=== PATIENT | male | born 1985 | race American Indian/Alaskan Native ===

== ENCOUNTER 2017-05-11 22:48 | Inpatient (IN) | payer SELFPAY ==
[2017-05-12 00:20] LABS: Basophils % (Auto) 0.2 % (0.0-1.8); Eosinophils % (Auto) 1.6 % (0.0-4.3); Hematocrit 21.2 % (35.5-45.6); Hemoglobin 7.2 gm/dl (11.8-15.2); Mean Corpuscular HGB Conc 34 % (32-34); Mean Corpuscular Hemoglobin 29 pg (28-32); Mean Corpuscular Volume 86 fl (84-94); Platelet Count 162 K/mm3 (140-440); Red Blood Count 2.48 M/mm3 (3.65-5.03); Red Cell Distribution Width 12.9 % (13.2-15.2); White Blood Count 5.1 K/mm3 (4.5-11.0)
[2017-05-12 00:36] LABS: Albumin 3.5 g/dL (3.9-5); Albumin/Globulin Ratio 0.8 %; BUN/Creatinine Ratio 13.52; Bilirubin,Total 0.2 mg/dL (0.1-1.2); Calcium 8.7 mg/dL (8.4-10.2); Chloride 105.5 mmol/L (98-107); Magnesium 1.9 mg/dL (1.7-2.3); Potassium 4.6 mmol/L (3.6-5.0); Total Protein 7.8 g/dL (6.3-8.2)
[2017-05-12] MEDS ORDERED: NACL 0.9% 500 ML 500 ML IV ONE (01:28)
--- NOTE | 2017-05-12 01:34 | Emergency Department Report ---
HPI - General Chief Complaint: Dizziness Time Seen by Provider: 05/12/17 01:08 - HPI HPI: Room 7 Patient is a 31-year-old male presenting with a chief complaint of weakness. Family states the patient has been in his usual state of health all day however at 22:07 he called and complaint of chest pain and dizziness. Family told the patient to sit down and relax. The patient called back shortly began complaining of shortness of breath and appeared to be panicking. The patient attempted to walk from his house to another family member smoking reportedly had difficulty family had to carry him to the home. It is uncertain if the patient actually had a syncopal or near syncopal episode. Family member states when she arrived home the patient was sitting on the couch and appeared disoriented. The patient is currently sleeping on stretcher and requires tactile stimuli to awaken. The patient is awake and he complains of feeling weak and tired. The patient complains of achy pain in all of his joints but otherwise denies any other type of pain. Patient denies bright red blood per rectum or melena. Location: [see above] Duration: Constant since 22:07 Quality: Weakness Severity: Severe Modifying factors: [see above] Context: [see above] Mode of transportation: [not driving] ED Past Medical Hx - Past Medical History Previous Medical History?: Yes Additional medical history: Lupus, hyperthyroidism, anemia - Surgical History Past Surgical History?: No - Family History Family history: no significant - Social History Smoking Status: Never Smoker Substance Use Type: None - Medications Home Medications: Home Medications Medication Instructions Recorded Confirmed Last Taken Type Acetaminophen/Codeine 1 tab PO Q6H PRN #14 tab 09/03/14 Unknown Rx [Acetaminophen-Codeine #3 TAB] Cephalexin [Keflex] 500 mg PO Q6H #28 capsule 09/03/14 Unknown Rx ED Review of Systems ROS: Stated complaint: PASSED OUT Other details as noted in HPI Comment: All other systems reviewed and negative Constitutional: weakness Eyes: denies: eye pain, eye discharge, vision change ENT: denies: ear pain, throat pain Respiratory: shortness of breath Cardiovascular: chest pain Endocrine: no symptoms reported Gastrointestinal: denies: abdominal pain, nausea, vomiting, diarrhea, melena, hematochezia Genitourinary: denies: urgency, dysuria Musculoskeletal: denies: back pain, joint swelling, arthralgia Skin: denies: rash, lesions Neurological: denies: headache, weakness, paresthesias Psychiatric: denies: anxiety, depression Hematological/Lymphatic: denies: easy bleeding, easy bruising Physical Exam - Physical Exam Vital Signs: Vital Signs 05/11/17 23:34 Temperature 99 F Pulse Rate 95 H Respiratory 16 Rate Blood Pressure 135/76 O2 Sat by Pulse 96 Oximetry Physical Exam: GENERAL: The patient is well-developed well-nourished male sleeping on stretcher. In the patient appears lethargic HEENT: Normocephalic. Atraumatic. Extraocular motions are intact. Patient has moist mucous membranes. NECK: Supple. Trachea midline CHEST/LUNGS: Clear to auscultation. There is no respiratory distress noted. HEART/CARDIOVASCULAR: Regular. There is no tachycardia. There is no gallop rub or murmur. ABDOMEN: Abdomen is soft, nontender. Patient has normal bowel sounds. There is no abdominal distention. SKIN: There is no rash. There is no edema. There is no diaphoresis. The patient has normal speech MUSCULOSKELETAL: There is no evidence of acute injury. ED Course Vital Signs 05/11/17 23:34 Temperature 99 F Pulse Rate 95 H Respiratory 16 Rate Blood Pressure 135/76 O2 Sat by Pulse 96 Oximetry ED Medical Decision Making - Lab Data Result diagrams: 05/11/17 23:54 05/11/17 23:54 Laboratory Tests 05/11/17 05/11/17 05/11/17 23:39 23:54 23:54 WBC 5.1 RBC 2.48 L Hgb 7.2 L Hct 21.2 L MCV 86 MCH 29 MCHC 34 RDW 12.9 L Plt Count 162 Lymph % (Auto) 18.2 Donley % (Auto) 7.0 Eos % (Auto) 1.6 Baso % (Auto) 0.2 Lymph # 0.9 L Donley # 0.4 Eos # 0.1 Baso # 0.0 Seg Neutrophils % 73.0 H Seg Neutrophils # 3.7 Sodium 141 Potassium 4.6 Chloride 105.5 Carbon Dioxide 21 L Anion Gap 19 BUN 23 H Creatinine 1.7 H Estimated GFR 58 BUN/Creatinine Ratio 13.52 Glucose 132 H POC Glucose 146 H Lactic Acid Calcium 8.7 Magnesium 1.90 Total Bilirubin 0.20 AST 16 ALT 5 L Alkaline Phosphatase 60 Total Protein 7.8 Albumin 3.5 L Albumin/Globulin Ratio 0.8 TSH Salicylates Acetaminophen Plasma/Serum Alcohol 05/11/17 05/11/17 05/11/17 23:54 23:54 23:54 WBC RBC Hgb Hct MCV MCH MCHC RDW Plt Count Lymph % (Auto) Donley % (Auto) Eos % (Auto) Baso % (Auto) Lymph # Donley # Eos # Baso # Seg Neutrophils % Seg Neutrophils # Sodium Potassium Chloride Carbon Dioxide Anion Gap BUN Creatinine Estimated GFR BUN/Creatinine Ratio Glucose POC Glucose Lactic Acid 1.00 Calcium Magnesium Total Bilirubin AST ALT Alkaline Phosphatase Total Protein Albumin Albumin/Globulin Ratio TSH 0.009 L Salicylates < 0.3 L Acetaminophen Plasma/Serum Alcohol 05/11/17 05/11/17 23:54 23:54 WBC RBC Hgb Hct MCV MCH MCHC RDW Plt Count Lymph % (Auto) Donley % (Auto) Eos % (Auto) Baso % (Auto) Lymph # Donley # Eos # Baso # Seg Neutrophils % Seg Neutrophils # Sodium Potassium Chloride Carbon Dioxide Anion Gap BUN Creatinine Estimated GFR BUN/Creatinine Ratio Glucose POC Glucose Lactic Acid Calcium Magnesium Total Bilirubin AST ALT Alkaline Phosphatase Total Protein Albumin Albumin/Globulin Ratio TSH Salicylates Acetaminophen < 15.0 Plasma/Serum Alcohol < 0.01 - EKG Data -: EKG Interpreted by Il EKG shows normal: sinus rhythm Rate: normal - EKG Data When compared to previous EKG there are: previous EKG unavailable Interpretation: other (early repolarization. No ischemic changes seen) - Differential Diagnosis symptomatic anemia Critical care attestation.: If time is entered above; I have spent that time in minutes in the direct care of this critically ill patient, excluding procedure time. ED Disposition Clinical Impression: Symptomatic anemia, Hyperthyroidism, Renal insufficiency Disposition: -09 OP ADMIT IP TO THIS HOSP Is pt being admited?: Yes Does the pt Need Aspirin: No Condition: Serious Referrals: PRIMARY CARE, [Primary Care Provider] - 3-5 Days Time of Disposition: 01:37 (hospitalist paged)
[2017-05-12 01:57] LABS: Urine Drugs of Abuse Note Disclamer
[2017-05-12 02:50] LABS: Bilirubin,Urine NEG (Negative); Blood,Urine NEG (Negative); Ketones,Urine NEG (Negative); Leukocyte Esterase,Urine NEG (Negative); Mucus,Urine FEW /HPF; Nitrite,Urine NEG (Negative); Urobilinogen,Urine < 2.0 mg/dL (<2.0)
[2017-05-12] MEDS ORDERED: NACL 0.9% 500 ML 500 ML ONE (06:56)
--- NOTE | 2017-05-12 07:12 | Admit Criteria Form ---
Admission Criteria Documentation: ANEMIA, IRON DEFICIENCY OR UNSPECIFIED Clinical Indications for Inpatient Care (Place 'X' for any and all applicable criteria): Admission is indicated for ANY ONE of the following(1)(2)(3)(4)(5)(6)(7): [X] I. Inpatient admission required rather than observation care (Also use Anemia, Iron Deficiency or Unspecified: Observation Care guideline as appropriate) because of ANY ONE of the following: [] a) Hemodynamic instability that is severe or persistent [] b) Active bleeding that cannot be rapidly controlled [] c) CVS symptoms (i.e., dyspnea, chest pain, heart failure) that are severe or persistent [] d) Neurologic symptoms (i.e., cognitive impairment, recurrent syncope or near syncope) that are severe or persistent [] e) Cardiac arrhythmias of immediate concern [] f) Acute peripheral ischemia (e.g., pulseless, cool, mottled, or cyanotic extremity) [] g) High-risk low platelet count [X] h) Acute renal failure [] i) Ongoing transfusion for blood loss (greater than 2 units) [] j) IV fluid to replace significant ongoing (eg, >24 hours) losses (> 3 L/m2 per day) [] k) Pulmonary artery catheter monitoring [] l) Supplemental oxygen or respiratory treatments for over 24 hours that are performable only in acute inpatient setting [] m) Immediate inpatient surgery [] n) Other condition, treatment or monitoring requiring inpatient admission [] II Active massive hemorrhage [] III. Active hemolysis with rapidly progressive anemia [A](6) Extended stay beyond goal length of stay may be needed for (17)(18) []a) Diagnosed cause of anemia requiring longer hospitalization (eg, active GI bleeding, immune hemolysis requiring electrophoresis, complications of malignancy requiring acute care []b) Continued emergent anemia indicators (23) []c) Transfusion reactions []d) Associated leukopenia or thrombocytopenia needing inpatient care []e) Active comorbidities (eg, renal failure, heart failure) The original [facility] Care Guidelines content created by [facility] Care Guidelines has been revised. The portions of the content which have been revised are identified through the use of italic text or in bold. [facility] Guidelines has neither reviewed nor approved the modified material. All other unmodified content is copyright [facility] Care Guidelines. Please see references footnoted in the original [facility] edition 2016 Admission Criteria Met: Yes
[2017-05-12] MEDS ORDERED: TYLENOL PO PRN (07:30)
[2017-05-12] MEDS ORDERED: ZOFRAN IV PRN (07:30)
--- NOTE | 2017-05-12 08:20 | XRay Report ---
AP CHEST :05/12/17 07:12:00 CLINICAL: Shortness of breath. COMPARISON:None. FINDINGS: Mild cardiomegaly and mild prominence of the central pulmonary vessels. The lungs are normally expanded and clear. The bones and soft tissues are normal. IMPRESSION: Mild cardiomegaly and pulmonary venous hypertension. No pulmonary edema.
[2017-05-12] MEDS: MORPHINE IV PRN ×2 (10:17→16:45)
[2017-05-12] MEDS: PROTONIX PO SCH (10:17)
[2017-05-12] MEDS ORDERED: NACL 0.9% 250ML 250 ML ONE (11:09)
--- NOTE | 2017-05-12 12:46 | History and Physical Report ---
History of Present Illness Date of examination: 05/12/17 Date of admission: 05/12/17 07:12 Chief complaint: Weak and confused, mother at bedside gave partial history History of present illness: Patient is a 31-year-old man with history of SLE with constant joint pains, hyperthyroidism (newly diagnosis), anemia of chronic disease and prior acute renal failure was followed by Dr. Warren at [facility] who presents with acute onset of weakness and confusion since yesterday. Patient is waking up and states that he underwent a procedure for his thyroid at [facility]. On Tuesday he was given a pill by mouth and had a radioactive iodine uptake inhibitor on Tuesday. He was found have UDS positive for opiates although is not on his home medications that he reported to me. When directly asked about narcotics; he reports taking Oxycontin he got from a dentist after dental procedure recently. He was found to have hemoglobin 7.2 and a creatinine of 1.7 without a known baseline here. Mother states that he has had a kidney biopsy in the past. He denies any other pains except joints. He is not denies nausea vomiting, chest pain shortness of breath. Past medical history: As HPI Past surgical history: He denies any surgeries Social history: He denies any smoking, alcohol abuse or illegal drugs, full code Family history: Hypertension ROS: as HPI and all other ROS reviewed and negative. Medications and Allergies Allergies Allergy/AdvReac Type Severity Reaction Status Date / Time amoxicillin Allergy Itching Verified 05/11/17 23:34 ibuprofen [From Motrin] Allergy Itching Verified 03/04/16 10:39 Home Medications Medication Instructions Recorded Confirmed Last Taken Type Hydroxychloroquine 400 mg PO DAILY 05/12/17 05/12/17 Unknown History Imuran 150 mg PO DAILY 05/12/17 05/12/17 Unknown History Prednisone 5 mg PO DAILY 05/12/17 05/12/17 Unknown History amLODIPine 10 mg PO DAILY 05/12/17 05/12/17 Unknown History Active Meds: Active Medications Acetaminophen (Tylenol) 650 mg PO Q4H PRN PRN Reason: Pain, Mild (1-3) Acetaminophen/Hydrocodone Bitart ([place] 5/325) 1 each PO Q4H PRN PRN Reason: Pain, Moderate (4-6) Morphine Sulfate (Morphine) 2 mg IV Q4H PRN PRN Reason: Pain , Severe (7-10) Last Admin: 05/12/17 10:17 Dose: 2 mg Ondansetron HCl (Zofran) 4 mg IV Q4H PRN PRN Reason: Nausea And Vomiting Pantoprazole Sodium (Protonix) 40 mg PO QDAY [facility] Last Admin: 05/12/17 10:17 Dose: 40 mg Zolpidem Tartrate (Ambien) 5 mg PO QHS PRN PRN Reason: Sleep Exam - Constitutional Vitals: Temp Pulse Resp BP Pulse Ox 97.3 F L 63 16 155/89 100 05/12/17 12:25 05/12/17 12:25 05/12/17 12:25 05/12/17 12:25 05/12/17 12:25 Results - Labs CBC & Chem 7: 05/11/17 23:54 05/11/17 23:54 Assessment and Plan Patient is a 31-year-old man with history of SLE with constant joint pains, hyperthyroidism (newly diagnosis), anemia of chronic disease and prior acute renal failure was followed by Dr. Warren at [facility] who presents with acute onset of weakness and confusion since yesterday. Patient is waking up and states that he underwent a procedure for his thyroid at [facility]. On Tuesday he was given a pill by mouth and had a radioactive iodine uptake inhibitor on Tuesday. He was found have UDS positive for opiates although is not on his home medications that he reported to me. When directly asked about narcotics; he reports taking Oxycontin he got from a dentist after dental procedure recently. He was found to have hemoglobin 7.2 and a creatinine of 1.7 without a known baseline here. Mother states that he has had a kidney biopsy in the past. He denies any other pains except diffuse joint pains. He denies nausea, vomiting, severe headaches or shortness of breath. He complains of bilateral upper chest tenderness. -Acute on chronic anemia of chronic disease, w/o signs of bleeding: transfuse, repeat h/h, FOBT pending -ARF, suspected renal tubular stasis/multifactorial, poa: consulted nephrology, treat with ivf -Acute metabolic encephalopathy, may be due to use of oxycodone, maybe be due to anemia, may be due to his thyroid procedure vs other: We'll monitor closely -SLE: Restart his immunosuppressants -Chest pains: Order cardiac enzymes -DVT prophylaxis: SCDs only due to anemia
[2017-05-12] MEDS ORDERED: NON-FORMULARY (Amlodipine 10 MG) PO SCH (13:10)
--- NOTE | 2017-05-12 14:14 | Consultation ---
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 and did not have blood work done, he came to the ED for worsening dizziness and weakness, he was found to have severe anemia and renal failure, renal consult requested for ARF management Past History Past Medical History: other (SLE, CKD, HTN) Medications and Allergies Allergies Allergy/AdvReac Type Severity Reaction Status Date / Time amoxicillin Allergy Itching Verified 05/11/17 23:34 ibuprofen [From Motrin] Allergy Itching Verified 03/04/16 10:39 Home Medications Medication Instructions Recorded Confirmed Last Taken Type Hydroxychloroquine 400 mg PO DAILY 05/12/17 05/12/17 Unknown History Imuran 150 mg PO DAILY 05/12/17 05/12/17 Unknown History Prednisone 5 mg PO DAILY 05/12/17 05/12/17 Unknown History amLODIPine 10 mg PO DAILY 05/12/17 05/12/17 Unknown History Active Meds: Active Medications Acetaminophen (Tylenol) 650 mg PO Q4H PRN PRN Reason: Pain, Mild (1-3) Acetaminophen/Hydrocodone Bitart ([place] 5/325) 1 each PO Q4H PRN PRN Reason: Pain, Moderate (4-6) Amlodipine Besylate (Norvasc) 10 mg PO DAILY [facility] Azathioprine (Imuran) 150 mg PO DAILY [facility] Hydroxychloroquine Sulfate (Plaquenil) 400 mg PO QDAY [facility] Sodium Chloride (Nacl 0.45% 1000 Ml) 1,000 mls @ 100 mls/hr IV DIRECT [facility] Morphine Sulfate (Morphine) 2 mg IV Q4H PRN PRN Reason: Pain , Severe (7-10) Last Admin: 05/12/17 10:17 Dose: 2 mg Ondansetron HCl (Zofran) 4 mg IV Q4H PRN PRN Reason: Nausea And Vomiting Pantoprazole Sodium (Protonix) 40 mg PO QDAY [facility] Last Admin: 05/12/17 10:17 Dose: 40 mg Prednisone (Deltasone) 5 mg PO QDAY [facility] Zolpidem Tartrate (Ambien) 5 mg PO QHS PRN PRN Reason: Sleep Review of Systems All systems: negative (weakness, dizziness) Exam - Vital Signs Vital signs: Vital Signs Temp Pulse Resp BP Pulse Ox 99 F 95 H 16 135/76 96 05/11/17 23:34 05/11/17 23:34 05/11/17 23:34 05/11/17 23:34 05/11/17 23:34 - General Appearance General appearance: well-developed, well-nourished EENT: ATNC, PERRL, mucous membranes moist Neck: Present: neck supple Respiratory: Clear to Ascultation Heart: regular, S1S2 Gastrointestinal: Present: normoactive bowel sounds. Absent: tenderness, distended Integumentary: no rash, warm and dry Neurologic: no focal deficit, no asterixis, alert and oriented x3 Musculoskeletal: Present: other (no edema in BLE) Psychiatric: mood/affect appropriate, cooperative Results - Lab Results 05/11/17 23:54 05/11/17 23:54 Most recent lab results Calcium 8.7 mg/dL (8.4-10.2) 05/11/17 23:54 Magnesium 1.90 mg/dL (1.7-2.3) 05/11/17 23:54 Assessment and Plan 1. Acute on chronic kidney disease - unknown baseline Cr, patient mentioned h/o kidney disease - UA negative for RBC which is against lupus nephritis, will check YAMILET, complement level and protein to Cr ratio - renally dose meds - strict I&O - renal diet 2. Symptomatic anemia - transfusion ordered 3. HTN - may resume Amlodipine
--- NOTE | 2017-05-12 16:39 | Consultation ---
History of Present Illness Consult date: 05/12/17 Consult reason: chest pain History of present illness: The patient's a 31-year-old man with multiple medical problems. He has chronic hypertension and lupus erythematosus. He is on amlodipine and immunosuppressive and therapy with Imuran and prednisone. He is admitted to the hospital with you, hematocrit 21, acute renal failure with a creatinine 1.7. During his course here, he complained of some atypical chest pain. ECG was done and cardiac consultation was requested. ECG is in normal sinus rhythm, with left axis deviation, otherwise normal ECG. There are no old ECGs for comparison. Past History Past Medical History: hypertension, other (SLE, CKD, HTN) Medications and Allergies Allergies Allergy/AdvReac Type Severity Reaction Status Date / Time amoxicillin Allergy Itching Verified 05/11/17 23:34 ibuprofen [From Motrin] Allergy Itching Verified 03/04/16 10:39 Home Medications Medication Instructions Recorded Confirmed Last Taken Type Hydroxychloroquine 400 mg PO DAILY 05/12/17 05/12/17 Unknown History Imuran 150 mg PO DAILY 05/12/17 05/12/17 Unknown History Prednisone 5 mg PO DAILY 05/12/17 05/12/17 Unknown History amLODIPine 10 mg PO DAILY 05/12/17 05/12/17 Unknown History Active Meds: Active Medications Acetaminophen (Tylenol) 650 mg PO Q4H PRN PRN Reason: Pain, Mild (1-3) Acetaminophen/Hydrocodone Bitart ([place] 5/325) 1 each PO Q4H PRN PRN Reason: Pain, Moderate (4-6) Amlodipine Besylate (Norvasc) 10 mg PO DAILY [facility] Azathioprine (Imuran) 150 mg PO DAILY [facility] Hydroxychloroquine Sulfate (Plaquenil) 400 mg PO QDAY [facility] Sodium Chloride (Nacl 0.45% 1000 Ml) 1,000 mls @ 100 mls/hr IV DIRECT [facility] Morphine Sulfate (Morphine) 2 mg IV Q4H PRN PRN Reason: Pain , Severe (7-10) Last Admin: 05/12/17 10:17 Dose: 2 mg Ondansetron HCl (Zofran) 4 mg IV Q4H PRN PRN Reason: Nausea And Vomiting Pantoprazole Sodium (Protonix) 40 mg PO QDAY [facility] Last Admin: 05/12/17 10:17 Dose: 40 mg Prednisone (Deltasone) 5 mg PO QDAY [facility] Zolpidem Tartrate (Ambien) 5 mg PO QHS PRN PRN Reason: Sleep Review of Systems Cardiovascular: chest pain, no orthopnea, no palpitations, no rapid/irregular heart beat, no edema, no syncope, no lightheadedness, no shortness of breath Physical Examination Vital Signs Temp Pulse Resp BP Pulse Ox 99 F 95 H 16 135/76 96 05/11/17 23:34 05/11/17 23:34 05/11/17 23:34 05/11/17 23:34 05/11/17 23:34 General appearance: no acute distress HEENT: Positive: PERRL Neck: Positive: neck supple Cardiac: Positive: Reg Rate and Rhythm Lungs: Positive: clear to auscultation Neuro: Positive: Grossly Intact Abdomen: Positive: Soft Male genitourinary: Positive: deferred Skin: Positive: Clear Extremities: Absent: edema Results 05/11/17 23:54 05/11/17 23:54 EKG interpretations - Telemetry EKG Rhythm: Sinus Rhythm Assessment and Plan - Patient Problems (1) Abnormal EKG Current Visit: Yes Status: Acute Plan to address problem: Chest pain is atypical. ECG is benign, shows a left axis otherwise normal. We will get an echocardiogram for left ventricular function assessment, otherwise no further cardiac workup is indicated. Medical service to continue further evaluation and management of his lupus, renal insufficiency and his severe anemia.
[2017-05-12] MEDS: NORVASC PO SCH (17:20)
[2017-05-12] MEDS: NACL 0.45% 1000 ML 1,000 ML IV SCH (17:21)
[2017-05-12] MEDS: NORCO 5/325 PO PRN (21:24)
[2017-05-12] MEDS: AMBIEN PO PRN (21:25)
[2017-05-12 22:06] LABS: Hematocrit 29.1 % (35.5-45.6); Hemoglobin 9.4 gm/dl (11.8-15.2)
[2017-05-12 22:23] LABS: Creatine Kinase 87 units/L (55-170)
[2017-05-12 22:39] LABS: Creatine Kinase MB < 1.0 ng/mL (0.0-4.0)
[2017-05-13 05:41] LABS: Basophils % (Auto) 0.2 % (0.0-1.8); Hematocrit 31.2 % (35.5-45.6); Hemoglobin 10.4 gm/dl (11.8-15.2); Mean Corpuscular HGB Conc 33 % (32-34); Mean Corpuscular Hemoglobin 28 pg (28-32); Mean Corpuscular Volume 86 fl (84-94); Platelet Count 160 K/mm3 (140-440); Red Blood Count 3.65 M/mm3 (3.65-5.03); Red Cell Distribution Width 13.6 % (13.2-15.2); White Blood Count 4.4 K/mm3 (4.5-11.0)
[2017-05-13 06:01] LABS: Anion Gap 19 mmol/L; BUN/Creatinine Ratio 14.28; Blood Urea Nitrogen 20 mg/dL (9-20); Calcium 8.8 mg/dL (8.4-10.2); Carbon Dioxide 21 mmol/L (22-30); Chloride 106.7 mmol/L (98-107); Glucose 87 mg/dL (75-100); Sodium 142 mmol/L (137-145)
[2017-05-13 06:04] LABS: Creatine Kinase 79 units/L (55-170)
--- NOTE | 2017-05-13 09:54 | Progress Note ---
Assessment and Plan 1. Acute on chronic kidney disease - unknown baseline Cr, patient mentioned h/o kidney disease - imporved Cr with transfusion and IVF - Ok to be discharged from renal standpoint - renally dose meds - strict I&O - renal diet 2. Symptomatic anemia - s/p PRBC transfusion 3. HTN - cont amlodipine Subjective Date of service: 05/13/17 Principal diagnosis: acute renal failure Interval history: feels better this AM Objective - Vital Signs Vital signs: Vital Signs - 12hr 05/12/17 05/12/17 05/12/17 22:00 22:24 23:00 Temperature 99.3 F Pulse Rate [ 58 L Right Radial] Respiratory 18 18 18 Rate Respiratory 18 Rate [ Generalized] Blood Pressure 132/82 [Right Arm] O2 Sat by Pulse Oximetry 05/13/17 05/13/17 04:50 07:00 Temperature 97.9 F 98.8 F Pulse Rate [ 58 L 54 L Right Radial] Respiratory 18 20 Rate Respiratory Rate [ Generalized] Blood Pressure 149/91 172/98 [Right Arm] O2 Sat by Pulse 100 Oximetry - General Appearance General appearance: well-developed, well-nourished EENT: ATNC, PERRL, mucous membranes moist Neck: no JVD, no carotid bruit Respiratory: Present: Clear to Ascultation Cardiology: regular, S1S2 Gastrointestinal: normoactive bowel sounds Integumentary: no rash, warm and dry Neurologic: no focal deficit, no asterixis, alert and oriented x3 Musculoskeletal: other (no edema in BLE) Psychiatric: mood/affect appropriate, cooperative - Lab 05/13/17 05:20 05/13/17 05:20 Most recent lab results Calcium 8.8 mg/dL (8.4-10.2) 05/13/17 05:20 Magnesium 1.90 mg/dL (1.7-2.3) 05/11/17 23:54 Urine Creatinine 97.2 mg/dL (0.1-20.0) H 05/12/17 01:37 Urine Sodium 65 mEq/L 05/12/17 01:37 Urine Total Protein 59 mg/dL (5-11.8) H 05/12/17 01:37
--- NOTE | 2017-05-13 09:57 | Progress Note ---
Assessment and Plan Hypertension Lupus erythematosus Thyroid disease Atypical chest pain ECG is benign Acute renal failure Symptomatic Anemia s/p blood transfusion Recommendations: Optimal BP management. Echocardiogram for LVEF assessment. Subjective Date of service: 05/13/17 Interval history: Patient reports he is chest pain free. He denies shortness of breath. Objective Vital Signs Temp Pulse Pulse Resp Resp BP BP 05/13/17 07:00 98.8 F 54 L 20 172/98 05/13/17 04:50 97.9 F 58 L 18 149/91 05/12/17 23:00 99.3 F 58 L 18 132/82 05/12/17 22:24 18 05/12/17 22:00 18 18 05/12/17 21:24 18 05/12/17 20:28 99.8 F H 66 18 141/81 05/12/17 15:12 98.0 F 65 65 H 178/92 05/12/17 15:00 98.9 F 68 16 159/91 05/12/17 14:25 98.3 F 63 16 178/92 05/12/17 13:25 98.3 F 56 L 16 150/74 05/12/17 12:55 98.3 F 62 18 160/89 05/12/17 12:25 97.3 F L 63 16 155/89 05/12/17 12:10 98.3 F 62 18 160/89 Pulse Ox 05/13/17 07:00 100 05/13/17 04:50 05/12/17 23:00 05/12/17 22:24 05/12/17 22:00 05/12/17 21:24 05/12/17 20:28 100 05/12/17 15:12 99 05/12/17 15:00 100 05/12/17 14:25 99 05/12/17 13:25 100 05/12/17 12:55 94 05/12/17 12:25 100 05/12/17 12:10 94 - Physical Examination General: No Apparent Distress HEENT: Positive: PERRL Neck: Positive: neck supple Cardiac: Positive: Reg Rate and Rhythm Lungs: Positive: Decreased Breath Sounds Neuro: Positive: Grossly Intact - Labs and Meds Cardiac Enzymes 05/12/17 05/13/17 Range/Units 21:30 05:20 CK-MB (CK-2) < 1.0 1.0 (0.0-4.0) ng/mL CBC 05/12/17 05/13/17 Range/Units 21:30 05:20 WBC 4.4 L (4.5-11.0) K/mm3 RBC 3.65 (3.65-5.03) M/mm3 Hgb 9.4 L 10.4 L (11.8-15.2) gm/dl Hct 29.1 L D 31.2 L (35.5-45.6) % Plt Count 160 (140-440) K/mm3 Lymph # 1.1 L (1.2-5.4) K/mm3 [place] # 0.4 (0.0-0.8) K/mm3 Eos # 0.1 (0.0-0.4) K/mm3 Baso # 0.0 (0.0-0.1) K/mm3 Comprehensive Metabolic Panel 05/13/17 Range/Units 05:20 Sodium 142 (137-145) mmol/L Potassium 5.0 (3.6-5.0) mmol/L Chloride 106.7 (98-107) mmol/L Carbon Dioxide 21 L (22-30) mmol/L BUN 20 (9-20) mg/dL Creatinine 1.4 (0.8-1.5) mg/dL Glucose 87 (75-100) mg/dL Calcium 8.8 (8.4-10.2) mg/dL
[2017-05-13] MEDS: DELTASONE PO SCH (09:59)
[2017-05-13] MEDS: PROTONIX PO SCH (09:59)
[2017-05-13] MEDS: NORCO 5/325 PO PRN ×3 (09:59→21:10)
[2017-05-13] MEDS: PLAQUENIL PO SCH (09:59)
[2017-05-13] MEDS: NACL 0.45% 1000 ML 1,000 ML IV SCH (09:59)
[2017-05-13] MEDS ORDERED: NON-FORMULARY (Prednisone 5 MG) PO SCH (10:00)
[2017-05-13] MEDS: NORVASC PO SCH (10:00)
[2017-05-13] MEDS ORDERED: AZATHIOPRINE 150 MG PO SCH (10:00)
[2017-05-13] MEDS ORDERED: HYDROXYCHLOROQUINE PO SCH (10:00)
[2017-05-13] MEDS: IMURAN PO SCH (10:05)
--- NOTE | 2017-05-13 12:25 | Discharge Summary ---
Providers - Providers Date of Admission: 05/12/17 07:12 Date of discharge: 05/13/17 Attending physician: CONNOR GREGORY 05/12/17 13:01 Consult to Physician [CONS] Routine Consulting Provider: ANN JEREZ Reason For Exam: ARF, ?lupus nephritis Place consult to:: Aundrea RAIN Notified:: DR. JEREZ Phone number called:: [phone] Was contact made?: Yes If yes, spoke with:: DR. JEREZ Time called:: 13:33 Comment:: TRINY KAMARA 05/12/17 14:06 Consult to Physician [CONS] Routine Consulting Provider: CESAR BELCHER Reason For Exam: SVT, cp Place consult to:: Tamara RAIN Notified:: HUNTER WANG Phone number called:: IN HOUSE Was contact made?: Yes If yes, spoke with:: HUNTER Time called:: 14:27 Comment:: TRINY NOTIFIED Primary care physician: VOCATIONAL CASE MANAGER Hospitalization Condition: Stable Hospital course: Patient is a 31-year-old man with history of SLE with constant joint pains, hyperthyroidism (newly diagnosis), anemia of chronic disease and prior acute renal failure was followed by Dr. Warren at [facility] Lupus clinic who presents with acute onset of weakness and confusion since yesterday. Patient is waking up and states that he underwent a procedure for his thyroid at [facility]. On Tuesday he was given a pill by mouth and had a radioactive iodine uptake inhibitor on Tuesday. He was found have UDS positive for opiates although is not on his home medications that he reported to me. When directly asked about narcotics; he reports taking Oxycontin he got from a dentist after dental procedure recently. He was found to have hemoglobin 7.2 and a creatinine of 1.7 without a known baseline here. Mother states that he has had a kidney biopsy in the past. He denies any other pains except diffuse joint pains. He denies nausea, vomiting, severe headaches or shortness of breath. He complains of bilateral upper chest tenderness. -Acute on chronic anemia of chronic disease, w/o signs of bleeding: transfused 2 units, repeat h/h, -ARF, suspected renal tubular stasis/multifactorial, poa: consulted nephrology, treat with ivf -Acute metabolic encephalopathy, may be due to use of oxycodone, maybe be due to anemia, may be due to his thyroid procedure vs other: We'll monitor closely -SLE: Restart his immunosuppressants -Chest pains: Order cardiac enzymes -DVT prophylaxis: SCDs only due to anemia Bp elevated due to IVF and s/p blood transfusion Cardiology ordered ECHO, they will follow up. Disposition: DC-01 TO HOME OR SELFCARE Time spent for discharge: 34 minutes Core Measure Documentation - Palliative Care Palliative Care/ Comfort Measures: Not Applicable - Core Measures Any of the following diagnoses?: none - VTE Discharge Requirements Deep Vein Thrombosis/Pulmonary Embolism Present on Admission: No Has pt received <5 days of overlap therapy or INR<2.0: No Anticoagulant overlap therapy prescribed at discharge: No Contraindication No Overlap Therapy order at DC: Not Indicated Exam - Physical Exam Narrative exam: GEN: WDWN, NAD, AWAKE, ALERT, ORIENTATED x 3 HEENT: NCAT, PERRL, EOMI, OP CLEAR NECK: SUPPLE, NO THYROMEGALY, NO JVD, NO LAD CVS: RRR, NORMAL S1S2 LUNGS/CHEST: CTA B, NORMAL CHEST EXPANSION B, GOOD AIR ENTRY B ABD: SOFT, NTND, GBS, NO REBOUND OR GUARDING EXT/SKIN: NO SIGNIFICANT EDEMA OR RASH MSK: FROM X 4 EXTREMITIES NEURO: CN 2-12 GROSSLY INTACT, NO FOCAL DEFICITS PSY: CALM - Constitutional Vitals: Temp Pulse Resp BP Pulse Ox 97.9 F 119 H 20 179/115 100 05/13/17 12:00 05/13/17 12:00 05/13/17 12:00 05/13/17 12:00 05/13/17 07:00 Plan Activity: other (no strenous activites until cleared by PCP. ) Diet: regular Follow up with: PRIMARY CAREMD [Primary Care Provider] - 3-5 Days
--- NOTE | 2017-05-13 14:40 | Progress Note ---
Assessment and Plan Assessment and plan: Patient is a 31-year-old man with history of SLE with constant joint pains, hyperthyroidism (newly diagnosis), anemia of chronic disease and prior acute renal failure was followed by Dr. Warren at [facility] Lupus clinic who presents with acute onset of weakness and confusion since yesterday. Patient is waking up and states that he underwent a procedure for his thyroid at [facility]. On Tuesday he was given a pill by mouth and had a radioactive iodine uptake inhibitor on Tuesday. He was found have UDS positive for opiates although is not on his home medications that he reported to me. When directly asked about narcotics; he reports taking Oxycontin he got from a dentist after dental procedure recently. He was found to have hemoglobin 7.2 and a creatinine of 1.7 without a known baseline here. Mother states that he has had a kidney biopsy in the past. He denies any other pains except diffuse joint pains. He denies nausea, vomiting, severe headaches or shortness of breath. He complains of bilateral upper chest tenderness. -Acute on chronic anemia of chronic disease, w/o signs of bleeding: transfused 2 units, repeat h/h, -ARF, suspected renal tubular stasis/multifactorial, poa: consulted nephrology, treat with ivf -Acute metabolic encephalopathy, may be due to use of oxycodone, maybe be due to anemia, may be due to his thyroid procedure vs other: We'll monitor closely -SLE: Restart his immunosuppressants -Chest pains: Order cardiac enzymes -DVT prophylaxis: SCDs only due to anemia Bp elevated due to IVF and s/p blood transfusion==>stopped ivf, added hydralazine. repeat bmp in am Cardiology ordered ECHO, they will follow up. Cardiology unable to do Echo today, will do tomorrow; therefore, they did not clear for discharge. History Interval history: Patient seen and examined. Follow up on fatigue. Overnight uneventful. No cp, sob, n/v or severe headaches. Imaging, old records, testing, labs, nursing notes reviewed. Hospitalist Physical - Physical exam Narrative exam: GEN: WDWN, NAD, AWAKE, ALERT, ORIENTATED x 3 HEENT: NCAT, PERRL, EOMI, OP CLEAR NECK: SUPPLE, NO THYROMEGALY, NO JVD, NO LAD CVS: RRR, NORMAL S1S2 LUNGS/CHEST: CTA B, NORMAL CHEST EXPANSION B, GOOD AIR ENTRY B ABD: SOFT, NTND, GBS, NO REBOUND OR GUARDING EXT/SKIN: NO SIGNIFICANT EDEMA OR RASH MSK: FROM X 4 EXTREMITIES NEURO: CN 2-12 GROSSLY INTACT, NO FOCAL DEFICITS PSY: CALM - Constitutional Vitals: Temp Pulse Resp BP Pulse Ox 97.9 F 119 H 20 179/115 100 05/13/17 12:00 05/13/17 12:00 05/13/17 12:00 05/13/17 12:00 05/13/17 07:00 General appearance: Present: no acute distress Results - Labs CBC & Chem 7: 05/13/17 05:20 05/13/17 05:20 Labs: Laboratory Last Values WBC 4.4 K/mm3 (4.5-11.0) L 05/13/17 05:20 RBC 3.65 M/mm3 (3.65-5.03) 05/13/17 05:20 Hgb 10.4 gm/dl (11.8-15.2) L 05/13/17 05:20 Hct 31.2 % (35.5-45.6) L 05/13/17 05:20 MCV 86 fl (84-94) 05/13/17 05:20 MCH 28 pg (28-32) 05/13/17 05:20 MCHC 33 % (32-34) 05/13/17 05:20 RDW 13.6 % (13.2-15.2) 05/13/17 05:20 Plt Count 160 K/mm3 (140-440) 05/13/17 05:20 Lymph % (Auto) 26.1 % (13.4-35.0) 05/13/17 05:20 [place] % (Auto) 8.1 % (0.0-7.3) H 05/13/17 05:20 Eos % (Auto) 3.0 % (0.0-4.3) 05/13/17 05:20 Baso % (Auto) 0.2 % (0.0-1.8) 05/13/17 05:20 Lymph # 1.1 K/mm3 (1.2-5.4) L 05/13/17 05:20 [place] # 0.4 K/mm3 (0.0-0.8) 05/13/17 05:20 Eos # 0.1 K/mm3 (0.0-0.4) 05/13/17 05:20 Baso # 0.0 K/mm3 (0.0-0.1) 05/13/17 05:20 Seg Neutrophils % 62.6 % (40.0-70.0) 05/13/17 05:20 Seg Neutrophils # 2.7 K/mm3 (1.8-7.7) 05/13/17 05:20 Sodium 142 mmol/L (137-145) 05/13/17 05:20 Potassium 5.0 mmol/L (3.6-5.0) 05/13/17 05:20 Chloride 106.7 mmol/L (98-107) 05/13/17 05:20 Carbon Dioxide 21 mmol/L (22-30) L 05/13/17 05:20 Anion Gap 19 mmol/L 05/13/17 05:20 BUN 20 mg/dL (9-20) 05/13/17 05:20 Creatinine 1.4 mg/dL (0.8-1.5) 05/13/17 05:20 Estimated GFR > 60 ml/min 05/13/17 05:20 BUN/Creatinine Ratio 14.28 % 05/13/17 05:20 Glucose 87 mg/dL (75-100) 05/13/17 05:20 POC Glucose 146 (70-105) H 05/11/17 23:39 Lactic Acid 0.70 mmol/L (0.7-2.0) 05/12/17 02:46 Calcium 8.8 mg/dL (8.4-10.2) 05/13/17 05:20 Magnesium 1.90 mg/dL (1.7-2.3) 05/11/17 23:54 Total Bilirubin 0.20 mg/dL (0.1-1.2) 05/11/17 23:54 AST 16 units/L (5-40) 05/11/17 23:54 ALT 5 units/L (7-56) L 05/11/17 23:54 Alkaline Phosphatase 60 units/L (35-129) 05/11/17 23:54 Total Creatine Kinase 79 units/L (55-170) 05/13/17 05:20 CK-MB (CK-2) 1.0 ng/mL (0.0-4.0) 05/13/17 05:20 CK-MB (CK-2) Rel Index 1.2 (0-4) 05/13/17 05:20 Troponin T < 0.010 ng/mL (0.00-0.029) 05/13/17 05:20 Total Protein 7.8 g/dL (6.3-8.2) 05/11/17 23:54 Albumin 3.5 g/dL (3.9-5) L 05/11/17 23:54 Albumin/Globulin Ratio 0.8 % 05/11/17 23:54 TSH 0.009 mlU/mL (0.270-4.200) L 05/11/17 23:54 Free T4 1.45 ng/dL (0.76-1.46) 05/12/17 01:10 Urine Color Yellow (Yellow) 05/12/17 01:37 Urine Turbidity Clear (Clear) 05/12/17 01:37 Urine pH 5.0 (5.0-7.0) 05/12/17 01:37 Ur Specific [place] 1.011 (1.003-1.030) 05/12/17 01:37 Urine Protein 100 mg/dl mg/dL (Negative) 05/12/17 01:37 Urine Glucose (UA) Neg mg/dL (Negative) 05/12/17 01:37 Urine Ketones Neg mg/dL (Negative) 05/12/17 01:37 Urine Blood Neg (Negative) 05/12/17 01:37 Urine Nitrite Neg (Negative) 05/12/17 01:37 Urine Bilirubin Neg (Negative) 05/12/17 01:37 Urine Urobilinogen < 2.0 mg/dL (<2.0) 05/12/17 01:37 Ur Leukocyte Esterase Neg (Negative) 05/12/17 01:37 Urine WBC (Auto) 1.0 /HPF (0.0-6.0) 05/12/17 01:37 Urine RBC (Auto) 1.0 /HPF (0.0-6.0) 05/12/17 01:37 U Epithel Cells (Auto) < 1.0 /HPF (0-13.0) 05/12/17 01:37 Hyaline Casts 3 /LPF 05/12/17 01:37 Urine Mucus Few /HPF 05/12/17 01:37 Urine Creatinine 97.2 mg/dL (0.1-20.0) H 05/12/17 01:37 Protein/Creatinin Ratio 0.61 05/12/17 01:37 Urine Sodium 65 mEq/L 05/12/17 01:37 Urine Total Protein 59 mg/dL (5-11.8) H 05/12/17 01:37 Salicylates < 0.3 mg/dL (2.8-20.0) L 05/11/17 23:54 Urine Opiates Screen Presumptive positive 05/12/17 01:37 Urine Methadone Screen Presumptive negative 05/12/17 01:37 Acetaminophen < 15.0 ug/mL (10.0-30.0) 05/11/17 23:54 Ur Barbiturates Screen Presumptive negative 05/12/17 01:37 Ur Phencyclidine Scrn Presumptive negative 05/12/17 01:37 Ur Amphetamines Screen Presumptive negative 05/12/17 01:37 U Benzodiazepines Scrn Presumptive negative 05/12/17 01:37 Urine Cocaine Screen Presumptive negative 05/12/17 01:37 U Marijuana (THC) Screen Presumptive negative 05/12/17 01:37 Drugs of Abuse Note Disclamer 05/12/17 01:37 Plasma/Serum Alcohol < 0.01 gm% (0-0.07) 05/11/17 23:54 Blood Type B POSITIVE 05/12/17 02:47 Antibody Screen TNR 05/12/17 02:47 [place] Antibody Screen Negative 05/12/17 02:47 Crossmatch See Detail 05/12/17 02:47
[2017-05-13] MEDS: APRESOLINE PO SCH ×2 (15:02→21:10)
--- NOTE | 2017-05-13 18:11 | Discharge Summary ---
Providers - Providers Date of Admission: 05/12/17 07:12 Date of discharge: 05/13/17 Attending physician: CONNOR GREGORY 05/12/17 13:01 Consult to Physician [CONS] Routine Consulting Provider: ANN JEREZ Reason For Exam: ARF, ?lupus nephritis Place consult to:: Aundrea RAIN Notified:: DR. JEREZ Phone number called:: [phone] Was contact made?: Yes If yes, spoke with:: DR. JEREZ Time called:: 13:33 Comment:: TRINY KAMARA 05/12/17 14:06 Consult to Physician [CONS] Routine Consulting Provider: CESAR BELCHER Reason For Exam: SVT, cp Place consult to:: Tamara RAIN Notified:: HUNTER WANG Phone number called:: IN HOUSE Was contact made?: Yes If yes, spoke with:: HUNTER Time called:: 14:27 Comment:: TRINY NOTIFIED Primary care physician: GRANITE CUTTER APPRENTICE Hospitalization Condition: Stable Hospital course: Patient is a 31-year-old man with history of SLE with constant joint pains, hyperthyroidism (newly diagnosis), anemia of chronic disease and prior acute renal failure was followed by Dr. Warren at [facility] Lupus clinic who presents with acute onset of weakness and confusion since yesterday. Patient is waking up and states that he underwent a procedure for his thyroid at [facility]. On Tuesday he was given a pill by mouth and had a radioactive iodine uptake inhibitor on Tuesday. He was found have UDS positive for opiates although is not on his home medications that he reported to me. When directly asked about narcotics; he reports taking Oxycontin he got from a dentist after dental procedure recently. He was found to have hemoglobin 7.2 and a creatinine of 1.7 without a known baseline here. Mother states that he has had a kidney biopsy in the past. He denies any other pains except diffuse joint pains. He denies nausea, vomiting, severe headaches or shortness of breath. He complains of bilateral upper chest tenderness. -Acute on chronic anemia of chronic disease, w/o signs of bleeding: transfused 2 units, repeat h/h, -ARF, suspected renal tubular stasis/multifactorial, poa: consulted nephrology, treat with ivf -Acute metabolic encephalopathy, may be due to use of oxycodone, maybe be due to anemia, may be due to his thyroid procedure vs other: We'll monitor closely -SLE: Restart his immunosuppressants -Chest pains: Order cardiac enzymes -DVT prophylaxis: SCDs only due to anemia Bp elevated due to IVF and s/p blood transfusion==>stopped ivf, added hydralazine. repeat bmp in am Cardiology ordered ECHO, they will follow up. Cardiology unable to do Echo today, will do tomorrow; therefore, they did not clear for discharge===>cardiology did ECHO, will discharge Disposition: DC-01 TO HOME OR SELFCARE Time spent for discharge: 37 minutes Core Measure Documentation - Palliative Care Palliative Care/ Comfort Measures: Not Applicable - Core Measures Any of the following diagnoses?: none - VTE Discharge Requirements Deep Vein Thrombosis/Pulmonary Embolism Present on Admission: No Has pt received <5 days of overlap therapy or INR<2.0: No Anticoagulant overlap therapy prescribed at discharge: No Contraindication No Overlap Therapy order at DC: Not Indicated Exam - Physical Exam Narrative exam: nad a/o x 3 rrr normal s1s2 Lungs CTA bilateral abd soft ntnd gbs neuro nonfocal - Constitutional Vitals: Temp Pulse Resp BP Pulse Ox 97.6 F 106 H 20 183/102 100 05/13/17 16:00 05/13/17 16:00 05/13/17 16:00 05/13/17 16:00 05/13/17 07:00 Plan Activity: other (no strenous activity until cleared by pcp) Diet: low salt Follow up with: PRIMARY CAREMD [Primary Care Provider] - 3-5 Days
[2017-05-13] MEDS: AMBIEN PO PRN (21:10)
--- NOTE | 2017-05-14 01:08 | Event Note ---
Date: 05/13/17 Confused on why patient wasnt discharged. Initially, cardiology told nurse that Echo would be done on tue and to hold discharge, then they performed the ECHO on Tuesday; so i put another d/c order in; nontheless, the patient wasnt discharged.
[2017-05-14] MEDS: APRESOLINE PO SCH (05:17)
[2017-05-14] MEDS: NORCO 5/325 PO PRN (07:47)
[2017-05-14 07:57] LABS: Anion Gap 17 mmol/L; BUN/Creatinine Ratio 16.25; Blood Urea Nitrogen 26 mg/dL (9-20); Calcium 8.9 mg/dL (8.4-10.2); Carbon Dioxide 21 mmol/L (22-30); Chloride 109.1 mmol/L (98-107); Glucose 86 mg/dL (75-100); Potassium 5.1 mmol/L (3.6-5.0); Sodium 142 mmol/L (137-145)
[2017-05-14 08:06] LABS: Basophils % (Auto) 0.2 % (0.0-1.8); Eosinophils % (Auto) 2.1 % (0.0-4.3); Hematocrit 31.9 % (35.5-45.6); Hemoglobin 10.7 gm/dl (11.8-15.2); Mean Corpuscular HGB Conc 33 % (32-34); Mean Corpuscular Hemoglobin 28 pg (28-32); Mean Corpuscular Volume 85 fl (84-94); Platelet Count 158 K/mm3 (140-440); Red Blood Count 3.76 M/mm3 (3.65-5.03); Red Cell Distribution Width 13.3 % (13.2-15.2); White Blood Count 4.7 K/mm3 (4.5-11.0)
[2017-05-14] MEDS: PLAQUENIL PO SCH (11:10)
[2017-05-14] MEDS: IMURAN PO SCH (11:14)
[2017-05-14] MEDS: NORVASC PO SCH (11:15)
[2017-05-14] MEDS: DELTASONE PO SCH (11:16)
[2017-05-14] MEDS: PROTONIX PO SCH (11:16)
[2017-05-14 11:17] VITALS: BP 149/86
== END 2017-05-14 13:10 | disposition home or self-care (01) | DRG 682 ==
LOC: ED 22:48 → 3A 05-12 07:12
PROVIDERS: ADMIT Internal Medicine; ATTEND Internal Medicine
PROC: 30233N1 Transfusion of Nonautologous Red Blood Cells into Peripheral Vein, Percutaneous Approach (ICD-10-PCS; principal; 2017-05-12)
DX: N17.0 Acute kidney failure with tubular necrosis (principal); G93.41 Metabolic encephalopathy; I12.9 Hypertensive chronic kidney disease with stage 1 through stage 4 chronic kidney disease, or unspecified chronic kidney disease; E05.90 Thyrotoxicosis, unspecified without thyrotoxic crisis or storm; M32.9 Systemic lupus erythematosus, unspecified; D63.8 Anemia in other chronic diseases classified elsewhere; R07.89 Other chest pain; N18.9 Chronic kidney disease, unspecified; Z88.1 Allergy status to other antibiotic agents; Z88.8 Allergy status to other drugs, medicaments and biological substances; Z82.49 Family history of ischemic heart disease and other diseases of the circulatory system
CPT/HCPCS: 36415; 71010; 80048; 80053; 80307; 80320; 81001; 82140; 82270; 82550; 82553; 82570; 82962; 83735; 84156; 84300; 84439; 84443; 84484; 85014; 85018; 85025; 85027; 86038; 86160; 86850; 86900; 86901; 86920; 93005; 93010; 93306; 96360; G0480; J2270; J7040; J7050; J7500; J7512; P9016

== ENCOUNTER 2017-08-31 23:20 | Emergency (ER) | payer SELFPAY ==
[2017-08-31 23:34] VITALS: BP 150/96
[2017-09-01 00:20] LABS: Basophils % (Auto) 0.3 % (0.0-1.8); Eosinophils % (Auto) 0.5 % (0.0-4.3); Hematocrit 21.4 % (35.5-45.6); Hemoglobin 7.2 gm/dl (11.8-15.2); Mean Corpuscular HGB Conc 34 % (32-34); Mean Corpuscular Hemoglobin 29 pg (28-32); Mean Corpuscular Volume 86 fl (84-94); Platelet Count 163 K/mm3 (140-440); Red Cell Distribution Width 13.5 % (13.2-15.2); White Blood Count 5.9 K/mm3 (4.5-11.0)
[2017-09-01 00:22] LABS: Calcium 8.3 mg/dL (8.4-10.2); Chloride 108.3 mmol/L (98-107)
[2017-09-01 00:32] LABS: Potassium 6.5 mmol/L (3.6-5.0)
== END 2017-09-01 00:50 | disposition left against medical advice (07) ==
LOC: ED 23:20
DX: K92.0 Hematemesis (principal); Z53.21 Procedure and treatment not carried out due to patient leaving prior to being seen by health care provider
CPT/HCPCS: 36415; 80048; 85025; 93005; 93010

== ENCOUNTER 2017-10-25 13:44 | Inpatient (IN) | payer OTHER ==
--- NOTE | 2017-10-25 14:20 | Emergency Department Report ---
Chief Complaint: Nausea/Vomiting/Diarrhea Stated Complaint: NAUSEA/VOMITING - HPI History of Present Illness: This is a 31-year-old male nontoxic, well nourished in appearance, no acute signs of distress presents to the ED with c/o of nausea, vomiting 6 weeks. Patient states he vomited at least 2-3 times a day and that he has diarrhea once daily. Denies any abdominal pain, fever, chills, headache, stiff neck, numbness, tingling, back pain. Patient did state that he is anxious. Denies any suicidal dictation or HI. - Exam Vital Signs: Vital Signs 10/25/17 13:52 Temperature 98 F Pulse Rate 113 H Respiratory 20 Rate Blood Pressure 143/95 O2 Sat by Pulse 98 Oximetry Physical Exam: GENERAL: The patient is a well-developed, well-nourished female in no apparent distress. Patient is alert and acting appropriately for age. Alert and oriented 3, no apparent distress, normal gait, atraumatic. LUNGS: Clear to auscultation. Non labor breathing. No intercostal retractions. Symmetrical with respiration, no wheezing, no rales, or crackles. HEART: Regular rate and rhythm without murmur, rubs or gallops. No reproducible. S1, S2 present, regular rate and rhythm without murmur, no rubs, no gallops. ABDOMEN: Soft, nontender, and nondistended. Positive bowel sounds. No hepatosplenomegaly was noted. No guarding or rebound tenderness, negative epigastric bruit. Negative psoas sign, negative bass sign, negative McBurneys sign MSE screening note: Focused history and physical exam performed. Due to findings the following was ordered: 1- This initial assessment/diagnostic orders/clinical plan/ treatment(s) is/are subject to change based on pt's health status, clinical progression and re- assessment by fellow clinical providers in the ED. Further treatment and workup at subsequent clinical provers discretion. Patient/guardians urged not to elope from ED as their condition may be serious if not clinically assessed and managed. 2-CBC, CMP, lipase, amylase, UA ED Disposition for MSE Condition: Stable
[2017-10-25 14:49] LABS: Basophils % (Auto) 0.3 % (0.0-1.8); Eosinophils % (Auto) 0.3 % (0.0-4.3); Mean Corpuscular HGB Conc 34 % (32-34); Mean Corpuscular Hemoglobin 29 pg (28-32); Mean Corpuscular Volume 85 fl (84-94); Platelet Count 186 K/mm3 (140-440); Red Blood Count 1.71 M/mm3 (3.65-5.03); Red Cell Distribution Width 15.2 % (13.2-15.2); White Blood Count 10.7 K/mm3 (4.5-11.0)
[2017-10-25 14:56] LABS: Hematocrit 14.6 % (35.5-45.6); Hemoglobin 4.9 gm/dl (11.8-15.2)
[2017-10-25] MEDS ORDERED: NACL 0.9% 500 ML 500 ML IV ONE ×2 (15:05→20:25)
[2017-10-25] MEDS ORDERED: NACL 0.9% 1000 ML 1,000 ML IV ONE (15:06)
[2017-10-25] MEDS ORDERED: ZOFRAN IV ONE (15:06)
[2017-10-25] MEDS ORDERED: PROTONIX IV ONE (15:06)
--- NOTE | 2017-10-25 15:18 | Emergency Department Report ---
HPI - General Chief Complaint: Nausea/Vomiting/Diarrhea Time Seen by Provider: 10/25/17 14:59 - HPI HPI: Room 23 The patient is a 31-year-old male presenting with a chief complaint of nausea and dizziness. The patient states for 1 month he has had frequent nausea and vomiting occasionally with hematemesis. Patient states she's felt dizzy for 1 month. Patient missed diarrhea for one month but denies melena or bright red blood per rectum. Patient states at times he has palpitations and suffers from fatigue, insomnia and pain all over for 1 month Location: [See above] Duration: One month Quality: Fatigue, dizzy Severity: Moderate Modifying factors: [see above] Context: [see above] Mode of transportation: [not driving] ED Past Medical Hx - Past Medical History Hx Hypertension: Yes Additional medical history: Lupus, hyperthyroidism, anemia (unknown etiology) - Surgical History Past Surgical History?: No - Family History Family history: no significant - Social History Smoking Status: Never Smoker Substance Use Type: None - Medications Home Medications: Home Medications Medication Instructions Recorded Confirmed Last Taken Type Acetaminophen/Diphenhydramine 1 each PO QHS 10/25/17 10/25/17 10/24/17 History [Tylenol Pm Ex-Strength Caplet] Hydroxychloroquine [Plaquenil] 400 mg PO QDAY 10/25/17 10/25/17 10/24/17 History Methimazole [Tapazole] 5 mg PO QDAY 10/25/17 10/25/17 10/24/17 History Multivitamin Tab [Multiple Vitamin 1 each PO QDAY 10/25/17 10/25/17 10/24/17 History TAB (Theragran)] Prednisone [predniSONE (Donovan) ER 5 mg PO QDAY 10/25/17 10/25/17 10/24/17 History TAB] amLODIPine [Norvasc] 10 mg PO DAILY 10/25/17 10/25/17 10/24/17 History ED Review of Systems ROS: Stated complaint: NAUSEA/VOMITING Other details as noted in HPI Constitutional: weakness Cardiovascular: palpitations Gastrointestinal: nausea, vomiting, diarrhea, hematemesis. denies: melena, hematochezia Musculoskeletal: myalgia Neurological: other (dizziness) Physical Exam - Physical Exam Vital Signs: Vital Signs 10/25/17 13:52 Temperature 98 F Pulse Rate 113 H Respiratory 20 Rate Blood Pressure 143/95 O2 Sat by Pulse 98 Oximetry Physical Exam: GENERAL: The patient is well-developed well-nourished male lying on stretcher not appearing to be in acute distress. [] HEENT: Normocephalic. Atraumatic. Extraocular motions are intact. Patient has moist mucous membranes. NECK: Supple. Trachea midline CHEST/LUNGS: Clear to auscultation. There is no respiratory distress noted. HEART/CARDIOVASCULAR: Regular. There is no tachycardia. There is no gallop rub or murmur. ABDOMEN: Abdomen is soft, nontender. Patient has normal bowel sounds. There is no abdominal distention. SKIN: There is no rash. There is no edema. There is no diaphoresis. NEURO: The patient is awake, alert, and oriented. The patient is cooperative. The patient has normal speech MUSCULOSKELETAL: There is no evidence of acute injury. RECTAL: GUAIAC NEGATIVE BROWN STOOL ED Course Vital Signs 10/25/17 13:52 Temperature 98 F Pulse Rate 113 H Respiratory 20 Rate Blood Pressure 143/95 O2 Sat by Pulse 98 Oximetry - Consultations Consultation #1: 10/25/17 15:54 Nephrology paged 10/25/17 15:[address] Guillaume- will arrange for emergent dialysis. Recommends consulting vascular surgery for access Consultation #2: 10/25/17 15:58 Vascular surgery paged 10/25/17 16:[address] Greene-will establish vascular access for hemodialysis ED Medical Decision Making - Lab Data Result diagrams: 10/25/17 14:37 10/25/17 14:37 Laboratory Tests 10/25/17 10/25/17 10/25/17 14:37 14:37 15:28 WBC 10.7 RBC 1.71 L Hgb 4.9 L* Hct 14.6 L* MCV 85 MCH 29 MCHC 34 RDW 15.2 Plt Count 186 Lymph % (Auto) 16.7 [place] % (Auto) 3.4 Eos % (Auto) 0.3 Baso % (Auto) 0.3 Lymph # 1.8 [place] # 0.4 Eos # 0.0 Baso # 0.0 Seg Neutrophils % 79.3 H Seg Neutrophils # 8.5 H PT 13.6 INR 0.99 APTT 30.9 Sodium 138 Potassium 7.6 H* Chloride 106.3 Carbon Dioxide 19 L Anion Gap 20 BUN 67 H Creatinine 10.0 H Estimated GFR 7 BUN/Creatinine Ratio 7 Glucose 93 Calcium 8.1 L Total Bilirubin < 0.20 AST 15 ALT 13 Alkaline Phosphatase 73 Total Protein 6.6 Albumin 2.8 L Albumin/Globulin Ratio 0.7 Amylase 247 H Lipase 152 H Blood Type Crossmatch 10/25/17 15:30 WBC RBC Hgb Hct MCV MCH MCHC RDW Plt Count Lymph % (Auto) [place] % (Auto) Eos % (Auto) Baso % (Auto) Lymph # [place] # Eos # Baso # Seg Neutrophils % Seg Neutrophils # PT INR APTT Sodium Potassium Chloride Carbon Dioxide Anion Gap BUN Creatinine Estimated GFR BUN/Creatinine Ratio Glucose Calcium Total Bilirubin AST ALT Alkaline Phosphatase Total Protein Albumin Albumin/Globulin Ratio Amylase Lipase Blood Type B POSITIVE Crossmatch See Detail - EKG Data -: EKG Interpreted by Me EKG shows normal: sinus rhythm Rate: tachycardia (103 bpm) - EKG Data When compared to previous EKG there are: previous EKG unavailable Interpretation: other (peaked T waves) - Differential Diagnosis GI bleed, peptic ulcer disease, hemolysis, sequestration Critical care attestation.: If time is entered above; I have spent that time in minutes in the direct care of this critically ill patient, excluding procedure time. ED Disposition Clinical Impression: Symptomatic anemia, Acute renal failure, Hyperkalemia Disposition: 09 OP ADMIT IP TO THIS HOSP Is pt being admited?: Yes Does the pt Need Aspirin: No Condition: Serious Referrals: PRIMARY CARE, [Primary Care Provider] - 3-5 Days Time of Disposition: 15:58 (hospitalist notified (Dr Gallagher))
[2017-10-25 15:33] LABS: Alanine Aminotransferase 13 units/L (7-56); Albumin 2.8 g/dL (3.9-5); Albumin/Globulin Ratio 0.7 %; Alkaline Phosphatase 73 units/L (35-129); Amylase 247 units/L (27-131); Anion Gap 20 mmol/L; BUN/Creatinine Ratio 7; Bilirubin,Total < 0.20 mg/dL (0.1-1.2); Blood Urea Nitrogen 67 mg/dL (9-20); Calcium 8.1 mg/dL (8.4-10.2); Carbon Dioxide 19 mmol/L (22-30); Chloride 106.3 mmol/L (98-107); Glucose 93 mg/dL (75-100); Lipase 152 units/L (13-60); Sodium 138 mmol/L (137-145); Total Protein 6.6 g/dL (6.3-8.2)
[2017-10-25 15:37] LABS: Potassium 7.6 mmol/L (3.6-5.0)
[2017-10-25] MEDS ORDERED: KIONEX PO ONE (15:59)
[2017-10-25] MEDS ORDERED: PROVENTIL IH ONE (15:59)
[2017-10-25 16:02] LABS: INR 0.99 (0.87-1.13)
[2017-10-25 16:03] LABS: Partial Thromboplastin Time 30.9 Sec. (24.2-36.6)
--- NOTE | 2017-10-25 16:31 | Consultation ---
History of Present Illness - Reason for Consult Consult date: 10/25/17 acute renal failure, chronic renal failure, hyperkalemia, metabolic acidosis - History of Present Illness This is a 31 year old male who presents to the hospital with a chief complaint of Nausea and vomiting for several weeks. On evaluation in E.R patient is noted to be severely Hyperkalemic with potassium level of 7.6 and in severe renal failure with a GFR level of 7 ml/min and Severely Anemic with a HGB level of 4.9. Patient has history of Hypertension for several years but does not check it at home. Also has Lupus on Plaquenil and Prednisone and Hyperthyroidism on Tapazole. States he sees [facility] for all his care. Patient also reports he was told a year ago that his kidney function was around 15-20%. Patient's states he is often has high potassium levels and often takes a " liquid" medication to get it down. We are being consulted for management of this patient's Acute on Chronic Kidney Disease and Hyperkalemia. Past History Past Medical History: hypertension, renal failure, other (Lupus, Hyperthyroidism ) Past Surgical History: No surgical history Social history: no significant social history Family history: no significant family history Medications and Allergies Allergies Allergy/AdvReac Type Severity Reaction Status Date / Time amoxicillin Allergy Itching Verified 10/25/17 13:52 ibuprofen [From Motrin] Allergy Itching Verified 10/25/17 13:52 Home Medications Medication Instructions Recorded Confirmed Last Taken Type Acetaminophen/Diphenhydramine 1 each PO QHS 10/25/17 10/25/17 10/24/17 History [Tylenol Pm Ex-Strength Caplet] Hydroxychloroquine [Plaquenil] 400 mg PO QDAY 10/25/17 10/25/17 10/24/17 History Methimazole [Tapazole] 5 mg PO QDAY 10/25/17 10/25/17 10/24/17 History Multivitamin Tab [Multiple Vitamin 1 each PO QDAY 10/25/17 10/25/17 10/24/17 History TAB (Theragran)] Prednisone [predniSONE (Donovan) ER 5 mg PO QDAY 10/25/17 10/25/17 10/24/17 History TAB] amLODIPine [Norvasc] 10 mg PO DAILY 10/25/17 10/25/17 10/24/17 History Active Meds: Active Medications Dextrose (D50w (25gm) Syringe) 25 ml IV ONCE.ED ONE Stop: 10/25/17 17:01 Calcium Gluconate 1,000 mg/ (Sodium Chloride) 110 mls @ 660 mls/hr IV ONCE.ED ONE Stop: 10/25/17 17:09 Sodium Bicarbonate (Sodium Bicarbonate) 50 meq IV ONCE.ED ONE Stop: 10/25/17 17:01 Review of Systems Constitutional: fatigue, no weight loss, no weight gain, no fever, no chills, no sweats, no night sweats, no malaise, no lethargy, no daytime sleepiness Ears, nose, mouth and throat: no ear pain, no ear discharge, no tinnitis, no decreased hearing, no nose pain, no nasal congestion, no nasal discharge Cardiovascular: no chest pain, no orthopnea, no palpitations, no rapid/ irregular heart beat, no edema, no syncope, no lightheadedness, no shortness of breath Respiratory: no cough with sputum, no excessive sputum, no hemoptysis, no shortness of breath, no dyspnea on exertion Gastrointestinal: nausea, vomiting, diarrhea, no abdominal pain, no constipation , no change in bowel habits Genitourinary Male: no hematuria, no flank pain, no discharge, no urinary frequency, no urinary hesitancy, no nocturia, no incontinence Rectal: no pain, no incontinence, no bleeding, no itching, no hemorrhoids Musculoskeletal: no neck pain, no shooting arm pain, no arm numbness/tingling, no low back pain, no shooting leg pain Integumentary: no rash, no pruritis, no redness, no sores, no wounds, no jaundice Neurological: no transient paralysis, no paralysis, no weakness, no parathesias , no numbness, no tingling Psychiatric: no anxiety, no memory loss, no change in sleep habits, no sleep disturbances, no insomnia, no hypersomnia Endocrine: no cold intolerance, no heat intolerance, no polyphagia, no excessive thirst Exam - Vital Signs Vital signs: Vital Signs Temp Pulse Resp BP Pulse Ox 98 F 113 H 20 143/95 98 10/25/17 13:52 10/25/17 13:52 10/25/17 13:52 10/25/17 13:52 10/25/17 13:52 - General Appearance General appearance: well-developed, well-nourished, appears stated age, fatigue EENT: ATNC, PERRL, hearing intact, vision intact Neck: Present: neck supple, trachea midline Respiratory: Decreased Breath Sounds Heart: regular, S1S2 Gastrointestinal: Present: normoactive bowel sounds Integumentary: warm and dry Neurologic: alert and oriented x3 Musculoskeletal: Absent: deformities, joint swelling Psychiatric: cooperative Results - Lab Results 10/25/17 14:37 10/25/17 14:37 Most recent lab results Calcium 8.1 mg/dL (8.4-10.2) L 10/25/17 14:37 Assessment and Plan - Patient Problems (1) Acute on chronic renal failure Current Visit: Yes Status: Acute Plan to address problem: Patient has history of CKD as 1 year ago he was told his GFR was 15-20 ml/min. 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 Greene has been consulted for vascular catheter placement We will obtain YAMILET, ANCA, Anti ds DNA, C3, C4, Anti-GBM, Hep B surface antigen , Hep C virus antibody, LDH, Protein/Creatinien ratio, Rapid HIV screen, Schistocytes, Urinalysis, Urine eosinophils, phosphorus levels today and recheck CBC and BMP levels in a.m Will obtain renal ultrasound to rule out obstruction Avoid Nephrotoxic agents Renally dose medications Monitor I/O's Monitor renal function closely (2) Hyperkalemia Current Visit: Yes Status: Acute Plan to address problem: Patient received Kayexalate and anti-potassium medley with Calcium Gluconate/D50 /Insulin Awaiting HD once vascular catheter is placed Recheck potassiuim levels post HD Low potassium diet (3) Anemia Current Visit: Yes Status: Acute Plan to address problem: Awaiting PRBC's transfusion (4) Hypertension Current Visit: Yes Status: Acute Plan to address problem: Resume anti-hypertensive agents and adjust as needed (5) Lupus Current Visit: Yes Status: Acute Plan to address problem: Was on Plaqeunil and Prednisone at home. As per primary team (6) Hyperthyroidism Current Visit: No Status: Acute Plan to address problem: Was on Tapazole at home. As per primary team.
[2017-10-25] MEDS ORDERED: SODIUM BICARBONATE IV ONE (17:00)
[2017-10-25] MEDS ORDERED: CALCIUM GLUCONATE 1,000 MG in NACL 0.9% 100 ML IV ONE (17:00)
[2017-10-25] MEDS ORDERED: D50W (25GM) Syringe IV ONE (17:00)
[2017-10-25 17:02] LABS: HIV-1 Antigen p24 Non React (Non React); HIVR-1/2 Ab Non React (Non React)
[2017-10-25 17:31] LABS: Smear for Schistocytes Rare
[2017-10-25] MEDS ORDERED: ZOFRAN IV PRN (19:58)
--- NOTE | 2017-10-25 20:24 | Event Note ---
Date: 10/25/17 See dictated H/p in reports
[2017-10-25] MEDS ORDERED: MILK OF MAGNESIA PO PRN (20:26)
[2017-10-25] MEDS ORDERED: DULCOLAX PR PRN (20:26)
[2017-10-25] MEDS ORDERED: NON-FORMULARY (Prednisone [Prednisone (Rayos) Er Tab] 5 MG) PO SCH (20:30)
[2017-10-25] MEDS ORDERED: ZOFRAN ONE (21:15)
[2017-10-25 22:12] LABS: Bilirubin,Urine NEG (Negative); Blood,Urine NEG (Negative); Ketones,Urine NEG (Negative); Leukocyte Esterase,Urine NEG (Negative); Nitrite,Urine NEG (Negative); Urobilinogen,Urine < 2.0 mg/dL (<2.0)
--- NOTE | 2017-10-25 22:13 | Procedure Note ---
Date of procedure: 10/25/17 Pre-op diagnosis: Acute Renal Failure, Severe Anemia, Hyperkalemia Post-op diagnosis: same Procedure: 1. Ultrasound-guided access of right common femoral vein 2. Placement of right femoral vein VascCath Description of Procedure: Procedure explained with patient including risks of bleeding, infection, arterial injury. Due to critical condition and hemodynamic instability I proceeded with placement of emergency right femoral vein VascCath. The right groin was prepped and draped in standard surgical fashion. The groin was evaluated with ultrasound and the femoral vein was compressible with no visible clot. Using 1% lidocaine for local, I then accessed the right femoral vein on the first stick followed by placement of wire on ultrasound. I also followed the wire on ultrasound going into the femoral vein. I then dilated the tract and finally placed the dialysis catheter. All ports flushed and withdrew venous blood. I then sutured the catheter in place with nylon followed by Biopatch and sterile dressings. The patient tolerated the procedure well and there were no complications. Anesthesia: local Surgeon: MATEO MICHAELS Estimated blood loss: minimal Pathology: none Condition: critical Disposition: ICU
--- NOTE | 2017-10-25 22:17 | Consultation ---
History of Present Illness - Reason for Consult Consult date: 10/25/17 Emergency Dialysis Access - History of Present Illness Patient with history of CRI, SLE admitted with severe anemia down to Hgb 4.6, and severe hyperkalemia. He denies any chest pain, sob, some nonproductive cough, and denies any hemoptysis, bloody stools, no hematemisis. On my evaluation he is tachycardic with HR 110s-140s, BP stable. No prior dialysis access procedures. Past History Past Medical History: hypertension, renal failure, other (Lupus, Hyperthyroidism ) Past Surgical History: No surgical history Social history: no significant social history Family history: no significant family history Medications and Allergies Allergies Allergy/AdvReac Type Severity Reaction Status Date / Time amoxicillin Allergy Itching Verified 10/25/17 13:52 ibuprofen [From Motrin] Allergy Itching Verified 10/25/17 13:52 Home Medications Medication Instructions Recorded Confirmed Last Taken Type Acetaminophen/Diphenhydramine 1 each PO QHS 10/25/17 10/25/17 10/24/17 History [Tylenol Pm Ex-Strength Caplet] Hydroxychloroquine [Plaquenil] 400 mg PO QDAY 10/25/17 10/25/17 10/24/17 History Methimazole [Tapazole] 5 mg PO QDAY 10/25/17 10/25/17 10/24/17 History Multivitamin Tab [Multiple Vitamin 1 each PO QDAY 10/25/17 10/25/17 10/24/17 History TAB (Theragran)] Prednisone [predniSONE (Donovan) ER 5 mg PO QDAY 10/25/17 10/25/17 10/24/17 History TAB] amLODIPine [Norvasc] 10 mg PO DAILY 10/25/17 10/25/17 10/24/17 History Active Meds: Active Medications Acetaminophen (Tylenol) 650 mg PO Q4H PRN PRN Reason: Pain MILD(1-3)/Fever >100.5/HAYNES Amlodipine Besylate (Norvasc) 10 mg PO DAILY [facility] Bisacodyl (Dulcolax) 10 mg [place] QDAY PRN PRN Reason: Constipation unrelieved by MOM Heparin Sodium (Porcine) (Heparin) 5,000 unit SUB-Q Q12HR [facility] Hydromorphone HCl (Dilaudid) 1 mg IV Q3H PRN PRN Reason: Pain , Severe (7-10) Hydroxychloroquine Sulfate (Plaquenil) 400 mg PO QDAY [facility] Magnesium Hydroxide (Milk Of Magnesia) 30 ml PO Q4H PRN PRN Reason: Constipation Methimazole (Tapazole) 5 mg PO QDAY [facility] Multivitamins (Theragran Tab) 1 each PO QDAY [facility] Ondansetron HCl (Zofran) 4 mg IV ONCE PRN PRN Reason: Nausea And Vomiting Last Admin: 10/25/17 21:15 Dose: 4 mg Ondansetron HCl (Zofran) 4 mg IV Q8H PRN PRN Reason: N/V unrelieved by Reglan Prednisone (Deltasone) 5 mg PO QDAY [facility] Review of Systems Constitutional: fatigue, no fever, no chills Ears, nose, mouth and throat: no epistaxis Cardiovascular: no chest pain, no shortness of breath Respiratory: cough, no hemoptysis Gastrointestinal: no abdominal pain, no vomiting, no BRBPR, no melena Genitourinary Male: no hematuria Rectal: no bleeding Musculoskeletal: leg numbness/tingling, arthritis Integumentary: no rash Neurological: no seizures Psychiatric: anxiety Hematologic/Lymphatic: no easy bleeding Exam - Constitutional Vitals: Temp Pulse Resp BP Pulse Ox 99.6 F 120 H 18 157/87 98 10/25/17 19:50 10/25/17 21:25 10/25/17 21:25 10/25/17 21:25 10/25/17 21:25 General appearance: Present: mild distress - EENT Eyes: Present: PERRL ENT: hearing intact - Neck Neck: Present: normal ROM - Respiratory Respiratory effort: normal - Cardiovascular Details: Tachycardic - Extremities Extremities: no ischemia, No edema - Abdominal General gastrointestinal: Present: soft, non-tender - Integumentary Integumentary: Present: clear, warm, dry. Absent: erythema - Psychiatric Psychiatric: appropriate mood/affect, cooperative, no agitated - Neurologic Neurologic: no focal deficits Results - Labs CBC & Chem 7: 10/25/17 14:37 10/25/17 14:37 Labs: Abnormal lab results 10/25/17 10/25/17 10/25/17 Range/Units 14:37 14:37 14:37 RBC 1.71 L (3.65-5.03) M/mm3 Hgb 4.9 L* (11.8-15.2) gm/dl Hct 14.6 L* (35.5-45.6) % Seg Neutrophils % 79.3 H (40.0-70.0) % Seg Neutrophils # 8.5 H (1.8-7.7) K/mm3 Potassium 7.6 H* (3.6-5.0) mmol/L Carbon Dioxide 19 L (22-30) mmol/L BUN 67 H (9-20) mg/dL Creatinine 10.0 H (0.8-1.5) mg/dL POC Glucose (70-105) Hemoglobin A1c 6.9 H (4-6) % Calcium 8.1 L (8.4-10.2) mg/dL Lactate Dehydrogenase (91-180) units/L Albumin 2.8 L (3.9-5) g/dL Amylase 247 H (27-131) units/L Lipase 152 H (13-60) units/L Crossmatch 10/25/17 10/25/17 10/25/17 Range/Units 15:30 16:22 16:33 RBC (3.65-5.03) M/mm3 Hgb (11.8-15.2) gm/dl Hct (35.5-45.6) % Seg Neutrophils % (40.0-70.0) % Seg Neutrophils # (1.8-7.7) K/mm3 Potassium (3.6-5.0) mmol/L Carbon Dioxide (22-30) mmol/L BUN (9-20) mg/dL Creatinine (0.8-1.5) mg/dL POC Glucose 117 H (70-105) Hemoglobin A1c (4-6) % Calcium (8.4-10.2) mg/dL Lactate Dehydrogenase 266 H (91-180) units/L Albumin (3.9-5) g/dL Amylase (27-131) units/L Lipase (13-60) units/L Crossmatch See Detail Assessment and Plan Severe Anemia Acute on Chronic Renal Failure Hyperkalemia Plan: Emergency placement of femoral dialysis catheter due to tachycardia with cardiac irritability and critical overall condition. Procedure discussed in detail, consent obtained.
[2017-10-25 22:19] LABS: Protein,Urine >500 mg/dL (Negative)
[2017-10-25] MEDS ORDERED: NACL 0.9% 100 ML IV PRN (22:44)
[2017-10-25] MEDS: ZOFRAN IV PRN (23:41)
[2017-10-26] MEDS: PLAQUENIL PO SCH ×2 (01:56→09:20)
[2017-10-26] MEDS: DELTASONE PO SCH ×2 (01:56→09:20)
[2017-10-26] MEDS: NORVASC PO SCH ×2 (01:56→09:20)
[2017-10-26] MEDS: THERAGRAN Tab PO SCH ×2 (01:57→09:20)
[2017-10-26] MEDS: TAPAZOLE PO SCH ×2 (01:57→09:20)
[2017-10-26] MEDS: DILAUDID IV PRN ×5 (01:57→22:23)
[2017-10-26] MEDS ORDERED: NACL 0.9% 500 ML 500 ML IV SCH (03:00)
[2017-10-26] MEDS: HEPARIN SUB-Q SCH ×3 (06:21→22:30)
--- NOTE | 2017-10-26 10:44 | Progress Note ---
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 Cr in the past was 3.5. Now with worsening renal failure. Could have FRANKLYN vs CKD progression -Initiated on IHD last night via fem VC -YAMILET, ANCA, Anti-DsDNA, Complements, Anti GBM, Hep panel, HIV, Urine PCR ordered -Hep Panel, HIV -ve -Urine PCR shows nephrotic range proteinuria -Renal US ordered -Will give 3 day pulse of Solumedrol 1 gm daily IV. Afterwards prednisone 60 mg daily. -Will eval for Renal bx but currently has severe anemia so would hold off as off now until Hg improves. Also patient may have progressive CKD leading to possible ESRD now. 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 Will eval for Plasma exchange -Transfusion PRN per primary and hemonc Hyperkalemia: -s/p HD last night. Low K diet. Essential Hypertension: -Titrate BP meds PRN to keep SBP <130 -Avoid Salomon inh/ARBs SLE: -Can continue home meds -Per primary Plan d/w Dr Chavez and family at bedside. Juan Angulo MD Nephrology, Hypertension, Dialysis, Transplantation Phone no: [phone] Subjective Date of service: 10/26/17 Interval history: Initiated on HD last night. Objective - Exam Narrative Exam: [id number] HEENT: PERRLA Neck: No JVD Chest: CTAB CVS: RRR Abd: Soft/Nt/ND/BS+ Ext: No cce, Rt fem VC Psyche: Appropriate mood - Vital Signs Vital signs: Vital Signs - 12hr 10/25/17 10/25/17 10/25/17 22:45 23:03 23:31 Temperature Pulse Rate 83 90 76 Pulse Rate [ Apical] Respiratory Rate Blood Pressure 151/95 147/94 137/77 Blood Pressure [Right] O2 Sat by Pulse Oximetry 10/25/17 10/26/17 10/26/17 23:45 00:00 00:15 Temperature Pulse Rate 67 77 85 Pulse Rate [ Apical] Respiratory Rate Blood Pressure 168/91 169/107 151/89 Blood Pressure [Right] O2 Sat by Pulse Oximetry 10/26/17 10/26/17 10/26/17 00:33 00:45 01:02 Temperature Pulse Rate 94 H 75 77 Pulse Rate [ Apical] Respiratory Rate Blood Pressure 195/98 164/79 155/94 Blood Pressure [Right] O2 Sat by Pulse Oximetry 10/26/17 10/26/17 10/26/17 01:37 01:56 02:28 Temperature 99.3 F Pulse Rate 80 Pulse Rate [ 78 Apical] Respiratory 18 Rate Blood Pressure 168/94 155/94 Blood Pressure [Right] O2 Sat by Pulse 100 Oximetry 10/26/17 10/26/17 10/26/17 02:51 03:13 03:27 Temperature 99.1 F 99.1 F Pulse Rate 80 91 H Pulse Rate [ Apical] Respiratory 20 20 20 Rate Blood Pressure 139/87 139/87 154/92 Blood Pressure [Right] O2 Sat by Pulse 100 98 Oximetry 10/26/17 10/26/17 10/26/17 03:28 03:56 03:57 Temperature 99.1 F 99.0 F Pulse Rate 91 H Pulse Rate [ Apical] Respiratory 20 20 20 Rate Blood Pressure 154/92 151/89 Blood Pressure [Right] O2 Sat by Pulse 98 Oximetry 10/26/17 10/26/17 10/26/17 03:58 04:36 04:37 Temperature 99.0 F Pulse Rate 95 H 93 H 94 H Pulse Rate [ Apical] Respiratory 20 20 Rate Blood Pressure 151/89 146/92 Blood Pressure [Right] O2 Sat by Pulse 99 99 Oximetry 10/26/17 10/26/17 10/26/17 04:40 05:20 05:28 Temperature 98.0 F 98.2 F Pulse Rate 97 H 94 H 91 H Pulse Rate [ Apical] Respiratory 20 20 20 Rate Blood Pressure 146/92 147/98 140/97 Blood Pressure [Right] O2 Sat by Pulse 99 99 99 Oximetry 10/26/17 10/26/17 10/26/17 06:10 06:13 06:28 Temperature 98.6 F 98.6 F 98.6 F Pulse Rate 94 H 94 H 95 H Pulse Rate [ Apical] Respiratory 20 20 20 Rate Blood Pressure 156/101 156/101 152/99 Blood Pressure [Right] O2 Sat by Pulse 99 99 99 Oximetry 10/26/17 10/26/17 10/26/17 06:58 07:19 08:54 Temperature 98.7 F 98.7 F 97.6 F Pulse Rate 98 H 98 H 99 H Pulse Rate [ Apical] Respiratory 20 20 20 Rate Blood Pressure 150/95 150/95 Blood Pressure 163/105 [Right] O2 Sat by Pulse 98 98 Oximetry - Lab 10/25/17 14:37 10/25/17 14:37 Most recent lab results Calcium 8.1 mg/dL (8.4-10.2) L 10/25/17 14:37 Urine Creatinine 87.5 mg/dL (0.1-20.0) H 10/25/17 21:44 Urine Sodium 56 mmol/L 10/25/17 21:44 Urine Total Protein 868 mg/dL (5-11.8) H 10/25/17 21:44
[2017-10-26] MEDS: ZOFRAN IV PRN ×3 (11:09→22:29)
[2017-10-26] MEDS ORDERED: PROCRIT SUB-Q ONE (14:00)
[2017-10-26 14:21] LABS: Basophils % (Auto) 0.1 % (0.0-1.8); Hematocrit 32.3 % (35.5-45.6); Hemoglobin 11.1 gm/dl (11.8-15.2); Mean Corpuscular HGB Conc 34 % (32-34); Mean Corpuscular Hemoglobin 30 pg (28-32); Mean Corpuscular Volume 87 fl (84-94); Platelet Count 146 K/mm3 (140-440); Red Blood Count 3.73 M/mm3 (3.65-5.03); Red Cell Distribution Width 15.5 % (13.2-15.2); White Blood Count 11.3 K/mm3 (4.5-11.0)
[2017-10-26 14:24] LABS: Basophils % (Auto) 0.1 % (0.0-1.8); Hematocrit 29.9 % (35.5-45.6); Hemoglobin 10.4 gm/dl (11.8-15.2); Mean Corpuscular HGB Conc 35 % (32-34); Mean Corpuscular Hemoglobin 30 pg (28-32); Mean Corpuscular Volume 87 fl (84-94); Platelet Count 143 K/mm3 (140-440); Red Blood Count 3.45 M/mm3 (3.65-5.03); Red Cell Distribution Width 15.2 % (13.2-15.2); White Blood Count 11.9 K/mm3 (4.5-11.0)
[2017-10-26 14:27] LABS: Chloride 97.2 mmol/L (98-107)
[2017-10-26 14:37] LABS: Calcium 7.1 mg/dL (8.4-10.2); Chloride 97.5 mmol/L (98-107); Phosphorous 5.6 mg/dL (2.5-4.5)
[2017-10-26 14:38] LABS: Potassium 6.6 mmol/L (3.6-5.0)
--- NOTE | 2017-10-26 15:21 | Progress Note ---
Assessment and Plan - Patient Problems (1) Acute on chronic renal failure Current Visit: Yes Status: Acute Qualifiers: Acute renal failure type: with acute tubular necrosis Chronic kidney disease stage: stage 5, not on chronic dialysis Qualified Code(s): N17.0 - Acute kidney failure with tubular necrosis; N18.5 - Chronic kidney disease, stage 5; N18.5 - Chronic kidney disease, stage 5; N18.5 - Chronic kidney disease , stage 5; N18.5 - Chronic kidney disease, stage 5 Plan to address problem: Patient has worsening Renalfunction. Initiated on HD yesterday Cr and K improving (2) Hyperkalemia Current Visit: Yes Status: Acute Plan to address problem: From 7.6 to 6.6. HD today again .recheck K level (3) Hypertension Current Visit: Yes Status: Chronic Qualifiers: Hypertension type: essential hypertension Qualified Code(s): I10 - Essential (primary) hypertension Plan to address problem: Cont antihypertensives (4) Lupus Current Visit: Yes Status: Chronic Qualifiers: Systemic lupus erythematosus type: unspecified Plan to address problem: Get sed rate Cont Plaquenil (5) Acquired TTP Current Visit: Yes Status: Acute Plan to address problem: Possible Hem onc on board [facility] for plasma exchange Subjective Date of service: 10/26/17 Principal diagnosis: ARF/CKD Acute Hemolytic anemia Interval history: 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 Cr in the past was 3.5. Now with worsening renal failure. Could have FRANKLYN vs CKD progression -Initiated on IHD last night via fem VC Objective - Constitutional Vitals: Vital Signs - 12hr 10/26/17 10/26/17 10/26/17 03:27 03:28 03:56 Temperature 99.1 F Pulse Rate 91 H 91 H Respiratory 20 20 20 Rate Blood Pressure 154/92 154/92 151/89 Blood Pressure [Right] O2 Sat by Pulse 98 98 Oximetry 10/26/17 10/26/17 10/26/17 03:57 03:58 04:36 Temperature 99.0 F 99.0 F Pulse Rate 95 H 93 H Respiratory 20 20 20 Rate Blood Pressure 151/89 146/92 Blood Pressure [Right] O2 Sat by Pulse 99 Oximetry 10/26/17 10/26/17 10/26/17 04:37 04:40 05:20 Temperature 98.0 F Pulse Rate 94 H 97 H 94 H Respiratory 20 20 Rate Blood Pressure 146/92 147/98 Blood Pressure [Right] O2 Sat by Pulse 99 99 99 Oximetry 10/26/17 10/26/17 10/26/17 05:28 06:10 06:13 Temperature 98.2 F 98.6 F 98.6 F Pulse Rate 91 H 94 H 94 H Respiratory 20 20 20 Rate Blood Pressure 140/97 156/101 156/101 Blood Pressure [Right] O2 Sat by Pulse 99 99 99 Oximetry 10/26/17 10/26/17 10/26/17 06:28 06:58 07:19 Temperature 98.6 F 98.7 F 98.7 F Pulse Rate 95 H 98 H 98 H Respiratory 20 20 20 Rate Blood Pressure 152/99 150/95 150/95 Blood Pressure [Right] O2 Sat by Pulse 99 98 98 Oximetry 10/26/17 10/26/17 08:54 12:32 Temperature 97.6 F 98.6 F Pulse Rate 99 H 98 H Respiratory 20 18 Rate Blood Pressure Blood Pressure 163/105 146/104 [Right] O2 Sat by Pulse 98 Oximetry General appearance: Present: no acute distress, well-nourished - EENT Eyes: PERRL, EOM intact ENT: hearing intact, clear oral mucosa Ears: bilateral: normal - Neck Neck: supple, normal ROM - Respiratory Respiratory effort: normal Respiratory: bilateral: CTA - Breasts Breasts: normal - Cardiovascular Rhythm: regular Heart Sounds: Present: S1 & S2. Absent: gallop, rub Extremities: pulses intact, No edema, normal color, Full ROM - Gastrointestinal General gastrointestinal: Present: soft, non-tender, non-distended, normal bowel sounds - Genitourinary Male genitourinary: normal - Integumentary Integumentary: clear, warm, dry - Musculoskeletal Musculoskeletal: 1, strength equal bilaterally - Neurologic Neurologic: moves all extremities - Psychiatric Psychiatric: memory intact, appropriate mood/affect, intact judgment & insight - Labs CBC & Chem 7: 10/27/17 05:15 10/27/17 05:15 Labs: Abnormal lab results 10/25/17 10/25/17 10/25/17 Range/Units 14:37 14:37 15:30 WBC (4.5-11.0) K/mm3 RBC (3.65-5.03) M/mm3 Hgb (11.8-15.2) gm/dl Hct (35.5-45.6) % MCHC (32-34) % RDW (13.2-15.2) % Lymph % (Auto) (13.4-35.0) % Lymph # (1.2-5.4) K/mm3 Seg Neutrophils % (40.0-70.0) % Seg Neutrophils # (1.8-7.7) K/mm3 Sodium (137-145) mmol/L Potassium 7.6 H* (3.6-5.0) mmol/L Chloride (98-107) mmol/L Carbon Dioxide 19 L (22-30) mmol/L BUN 67 H (9-20) mg/dL Creatinine 10.0 H (0.8-1.5) mg/dL POC Glucose (70-105) Hemoglobin A1c 6.9 H (4-6) % Calcium 8.1 L (8.4-10.2) mg/dL Phosphorus (2.5-4.5) mg/dL TIBC (250-450) mcg/dL Transferrin (180-329) mg/dl Ferritin (13.0-400.0) ng/mL Lactate Dehydrogenase (91-180) units/L Albumin 2.8 L (3.9-5) g/dL Amylase 247 H (27-131) units/L Lipase 152 H (13-60) units/L Urine Creatinine (0.1-20.0) mg/dL Urine Total Protein (5-11.8) mg/dL Crossmatch See Detail 10/25/17 10/25/17 10/25/17 Range/Units 16:22 16:33 21:44 WBC (4.5-11.0) K/mm3 RBC (3.65-5.03) M/mm3 Hgb (11.8-15.2) gm/dl Hct (35.5-45.6) % MCHC (32-34) % RDW (13.2-15.2) % Lymph % (Auto) (13.4-35.0) % Lymph # (1.2-5.4) K/mm3 Seg Neutrophils % (40.0-70.0) % Seg Neutrophils # (1.8-7.7) K/mm3 Sodium (137-145) mmol/L Potassium (3.6-5.0) mmol/L Chloride (98-107) mmol/L Carbon Dioxide (22-30) mmol/L BUN (9-20) mg/dL Creatinine (0.8-1.5) mg/dL POC Glucose 117 H (70-105) Hemoglobin A1c (4-6) % Calcium (8.4-10.2) mg/dL Phosphorus (2.5-4.5) mg/dL TIBC (250-450) mcg/dL Transferrin (180-329) mg/dl Ferritin (13.0-400.0) ng/mL Lactate Dehydrogenase 266 H (91-180) units/L Albumin (3.9-5) g/dL Amylase (27-131) units/L Lipase (13-60) units/L Urine Creatinine 87.5 H (0.1-20.0) mg/dL Urine Total Protein 868 H (5-11.8) mg/dL Crossmatch 10/25/17 10/26/17 10/26/17 Range/Units 21:44 13:46 13:46 WBC 11.9 H (4.5-11.0) K/mm3 RBC 3.45 L (3.65-5.03) M/mm3 Hgb 10.4 L D (11.8-15.2) gm/dl Hct 29.9 L D (35.5-45.6) % MCHC 35 H (32-34) % RDW (13.2-15.2) % Lymph % (Auto) 8.4 L (13.4-35.0) % Lymph # 1.0 L (1.2-5.4) K/mm3 Seg Neutrophils % 88.8 H (40.0-70.0) % Seg Neutrophils # 10.5 H (1.8-7.7) K/mm3 Sodium 136 L (137-145) mmol/L Potassium (3.6-5.0) mmol/L Chloride 97.5 L (98-107) mmol/L Carbon Dioxide (22-30) mmol/L BUN 24 H (9-20) mg/dL Creatinine 5.1 H (0.8-1.5) mg/dL POC Glucose (70-105) Hemoglobin A1c (4-6) % Calcium 7.1 L (8.4-10.2) mg/dL Phosphorus 5.60 H (2.5-4.5) mg/dL TIBC (250-450) mcg/dL Transferrin (180-329) mg/dl Ferritin (13.0-400.0) ng/mL Lactate Dehydrogenase (91-180) units/L Albumin (3.9-5) g/dL Amylase (27-131) units/L Lipase (13-60) units/L Urine Creatinine 85.2 H (0.1-20.0) mg/dL Urine Total Protein (5-11.8) mg/dL Crossmatch 10/26/17 10/26/17 10/26/17 Range/Units 13:46 13:46 13:46 WBC 11.3 H (4.5-11.0) K/mm3 RBC (3.65-5.03) M/mm3 Hgb 11.1 L (11.8-15.2) gm/dl Hct 32.3 L (35.5-45.6) % MCHC (32-34) % RDW 15.5 H (13.2-15.2) % Lymph % (Auto) 7.9 L (13.4-35.0) % Lymph # 0.9 L (1.2-5.4) K/mm3 Seg Neutrophils % 89.5 H (40.0-70.0) % Seg Neutrophils # 10.1 H (1.8-7.7) K/mm3 Sodium 135 L (137-145) mmol/L Potassium 6.6 H* (3.6-5.0) mmol/L Chloride 97.2 L (98-107) mmol/L Carbon Dioxide (22-30) mmol/L BUN 24 H (9-20) mg/dL Creatinine 5.1 H (0.8-1.5) mg/dL POC Glucose (70-105) Hemoglobin A1c (4-6) % Calcium 7.0 L (8.4-10.2) mg/dL Phosphorus (2.5-4.5) mg/dL TIBC 144 L (250-450) mcg/dL Transferrin 130 L (180-329) mg/dl Ferritin (13.0-400.0) ng/mL Lactate Dehydrogenase (91-180) units/L Albumin (3.9-5) g/dL Amylase (27-131) units/L Lipase (13-60) units/L Urine Creatinine (0.1-20.0) mg/dL Urine Total Protein (5-11.8) mg/dL Crossmatch 10/26/17 10/26/17 Range/Units 13:46 13:46 WBC (4.5-11.0) K/mm3 RBC (3.65-5.03) M/mm3 Hgb (11.8-15.2) gm/dl Hct (35.5-45.6) % MCHC (32-34) % RDW (13.2-15.2) % Lymph % (Auto) (13.4-35.0) % Lymph # (1.2-5.4) K/mm3 Seg Neutrophils % (40.0-70.0) % Seg Neutrophils # (1.8-7.7) K/mm3 Sodium (137-145) mmol/L Potassium (3.6-5.0) mmol/L Chloride (98-107) mmol/L Carbon Dioxide (22-30) mmol/L BUN (9-20) mg/dL Creatinine (0.8-1.5) mg/dL POC Glucose (70-105) Hemoglobin A1c (4-6) % Calcium (8.4-10.2) mg/dL Phosphorus (2.5-4.5) mg/dL TIBC (250-450) mcg/dL Transferrin (180-329) mg/dl Ferritin 1014.0 H (13.0-400.0) ng/mL Lactate Dehydrogenase 476 H (91-180) units/L Albumin (3.9-5) g/dL Amylase (27-131) units/L Lipase (13-60) units/L Urine Creatinine (0.1-20.0) mg/dL Urine Total Protein (5-11.8) mg/dL Crossmatch Short CBC 10/26/17 10/26/17 10/27/17 Range/Units 13:46 13:46 05:15 WBC 11.9 H 11.3 H 7.2 (4.5-11.0) K/mm3 Hgb 10.4 L D 11.1 L 9.7 L (11.8-15.2) gm/dl Hct 29.9 L D 32.3 L 27.9 L (35.5-45.6) % Plt Count 143 146 130 L (140-440) K/mm3 BMP 10/26/17 10/26/17 10/27/17 13:46 13:46 01:51 Sodium 136 L 135 L 138 Potassium 6.1 H* 6.6 H* 4.3 D Chloride 97.5 L 97.2 L 93.9 L Carbon Dioxide 25 24 34 H D BUN 24 H 24 H 13 Creatinine 5.1 H 5.1 H 3.1 H Glucose 92 97 126 H Calcium 7.1 L 7.0 L 7.9 L 10/27/17 05:15 Sodium 141 Potassium 5.0 Chloride 96.5 L Carbon Dioxide 33 H BUN 19 Creatinine 3.7 H Glucose 131 H Calcium 7.3 L
[2017-10-26 15:55] LABS: Potassium 6.1 mmol/L (3.6-5.0)
--- NOTE | 2017-10-26 16:01 | XRay Report ---
AP CHEST :10/25/17 20:26:00 CLINICAL: Renal failure. Assess for fluid overload. COMPARISON:05/12/17 FINDINGS: Stable cardiomegaly and mild intravascular prominence.Mild aortic tortuosity. The lungs are normally expanded and clear. No airspace disease or pleural effusion. The bones and soft tissues are normal. IMPRESSION: Cardiomegaly and pulmonary venous hypertension. No pulmonary edema no pleural effusion.
[2017-10-26] MEDS ORDERED: NACL 0.9% 100 ML IV PRN (16:24)
[2017-10-26] MEDS ORDERED: KIONEX PO ONE (16:41)
[2017-10-26] MEDS ORDERED: LASIX IV ONE (17:00)
[2017-10-26] MEDS ORDERED: D50W (25GM) Vial IV ONE (17:00)
[2017-10-26] MEDS ORDERED: NACL 0.9% 500 ML 500 ML IV NR (20:34)
[2017-10-26] MEDS ORDERED: CALCIUM GLUCONATE 1,000 MG in NACL 0.9% 100 ML IV ONE (21:38)
[2017-10-26] MEDS ORDERED: HEPARIN 10,000 UNITS/10 ML IV SCH (22:00)
[2017-10-26] MEDS: TYLENOL PO PRN (22:21)
[2017-10-26] MEDS: BENADRYL PO PRN (22:22)
[2017-10-26] MEDS: HEPARIN IV PRN (22:35)
--- NOTE | 2017-10-26 23:15 | Hem/Onc Consultation ---
History of Present Illness - Reason for Consult Consult date: 10/26/17 Microangiopathic Hemolysis - History of Present Illness Patient has a history of lupus since 2006. Has anemia per patient which worsens as lupus worsens. Admitted with acute on chronic renal failure. Started dialysis. Noted with schistocytes. No feverss or MS changes. Past History Past Medical History: hypertension, renal failure, other (Lupus, Hyperthyroidism ) Past Surgical History: No surgical history Social history: no significant social history Family history: no significant family history Medications and Allergies Allergies Allergy/AdvReac Type Severity Reaction Status Date / Time amoxicillin Allergy Itching Verified 10/25/17 13:52 ibuprofen [From Motrin] Allergy Itching Verified 10/25/17 13:52 Home Medications Medication Instructions Recorded Confirmed Last Taken Type Acetaminophen/Diphenhydramine 1 each PO QHS 10/25/17 10/25/17 10/24/17 History [Tylenol Pm Ex-Strength Caplet] Hydroxychloroquine [Plaquenil] 400 mg PO QDAY 10/25/17 10/25/17 10/24/17 History Methimazole [Tapazole] 5 mg PO QDAY 10/25/17 10/25/17 10/24/17 History Multivitamin Tab [Multiple Vitamin 1 each PO QDAY 10/25/17 10/25/17 10/24/17 History TAB (Theragran)] Prednisone [predniSONE (Donovan) ER 5 mg PO QDAY 10/25/17 10/25/17 10/24/17 History TAB] amLODIPine [Norvasc] 10 mg PO DAILY 10/25/17 10/25/17 10/24/17 History Active Meds: Active Medications Acetaminophen (Tylenol) 650 mg PO Q4H PRN PRN Reason: Pain MILD(1-3)/Fever >100.5/HAYNES Last Admin: 10/26/17 22:21 Dose: 650 mg Amlodipine Besylate (Norvasc) 10 mg PO DAILY RAMOS Last Admin: 10/26/17 09:20 Dose: 10 mg Bisacodyl (Dulcolax) 10 mg [place] QDAY PRN PRN Reason: Constipation unrelieved by MOM Diphenhydramine HCl (Benadryl) 25 mg PO Q6H PRN PRN Reason: Itching Last Admin: 10/26/17 22:22 Dose: 25 mg Heparin Sodium (Porcine) (Heparin) 5,000 unit SUB-Q Q12HR [facility] Last Admin: 10/26/17 22:30 Dose: Not Given Heparin Sodium (Porcine) (Heparin) 5,000 unit IV VELASQUEZ PRN PRN Reason: hemodialysis Last Admin: 10/26/17 22:35 Dose: 5,000 unit Heparin Sodium (Porcine) (Heparin 10,000 Units/10 Ml) 10,000 unit IV QDAY [facility] Stop: 10/28/17 10:01 Last Admin: 10/26/17 22:30 Dose: 10,000 unit Hydromorphone HCl (Dilaudid) 1 mg IV Q3H PRN PRN Reason: Pain , Severe (7-10) Last Admin: 10/26/17 22:23 Dose: 1 mg Hydroxychloroquine Sulfate (Plaquenil) 400 mg PO QDAY [facility] Last Admin: 10/26/17 09:20 Dose: 400 mg Sodium Chloride (Nacl 0.9%) 100 mls @ 999 mls/hr IV VELASQUEZ PRN PRN Reason: Hypotension Sodium Chloride (Nacl 0.9% 500 Ml) 500 mls @ 50 mls/hr IV DIRECT [facility] Last Admin: 10/26/17 03:25 Dose: 50 mls/hr Methylprednisolone Sodium Succinate 1,000 mg/ Sodium Chloride 250 mls @ 250 mls /hr IV Q24H [facility] Stop: 10/28/17 15:59 Last Admin: 10/26/17 16:08 Dose: 250 mls/hr Sodium Chloride (Nacl 0.9%) 100 mls @ 999 mls/hr IV VELASQUEZ PRN PRN Reason: Hypotension Sodium Chloride (Nacl 0.9% 500 Ml) 500 mls @ 0 mls/hr IV ONCE NR PRN Reason: As Directed Stop: 10/27/17 12:00 Magnesium Hydroxide (Milk Of Magnesia) 30 ml PO Q4H PRN PRN Reason: Constipation Methimazole (Tapazole) 5 mg PO QDAY [facility] Last Admin: 10/26/17 09:20 Dose: 5 mg Multivitamins (Theragran Tab) 1 each PO QDAY [facility] Last Admin: 10/26/17 09:20 Dose: 1 each Ondansetron HCl (Zofran) 4 mg IV Q8H PRN PRN Reason: N/V unrelieved by Adis Last Admin: 10/26/17 22:29 Dose: 4 mg Review of Systems All systems: negative Constitutional: fatigue Exam - Constitutional Vitals: Last Vital Signs Temp 97.7 F 10/26/17 21:30 Pulse 84 10/26/17 21:45 Resp 20 10/26/17 21:30 BP 172/104 10/26/17 21:45 Pulse Ox 95 10/26/17 16:58 - EENT Eyes: PERRL ENT: hearing intact Lymph node exam: negative cervical - Neck Neck: supple - Respiratory Respiratory effort: Positive: normal Respiratory: bilateral: CTA - Cardiovascular Rhythm: regular Extremities: pulses intact - Gastrointestinal General gastrointestinal: Present: soft - Integumentary Integumentary: clear - Musculoskeletal Musculoskeletal: strength equal bilaterally - Neurologic Neurologic: CNII-XII intact - Psychiatric Psychiatric: appropriate mood/affect Results - Labs lab Results: Laboratory Results - last 24 hr 10/25/17 10/26/17 10/26/17 15:30 13:46 13:46 WBC 11.9 H RBC 3.45 L Hgb 10.4 L D Hct 29.9 L D MCV 87 MCH 30 MCHC 35 H RDW 15.2 Plt Count 143 Lymph % (Auto) 8.[address] [place] % (Auto) 2.7 Eos % (Auto) 0.0 Baso % (Auto) 0.1 Lymph # 1.[address] [place] # 0.3 Eos # 0.0 Baso # 0.0 Seg Neutrophils % 88.8 H Seg Neutrophils # 10.5 H Sodium 136 L Potassium 6.1 H* Chloride 97.5 L Carbon Dioxide 25 Anion Gap 20 BUN 24 H Creatinine 5.1 H Estimated GFR 16 BUN/Creatinine Ratio 5 Glucose 92 Calcium 7.1 L Phosphorus 5.60 H Iron TIBC % Saturation Transferrin Ferritin Lactate Dehydrogenase Folate Blood Type B POSITIVE Antibody Screen Negative Crossmatch See Detail 10/26/17 10/26/17 10/26/17 13:46 13:46 13:46 WBC 11.3 H RBC 3.73 Hgb 11.1 L Hct 32.3 L MCV 87 MCH 30 MCHC 34 RDW 15.5 H Plt Count 146 Lymph % (Auto) 7.[address] [place] % (Auto) 2.5 Eos % (Auto) 0.0 Baso % (Auto) 0.1 Lymph # 0.[address] [place] # 0.3 Eos # 0.0 Baso # 0.0 Seg Neutrophils % 89.5 H Seg Neutrophils # 10.1 H Sodium 135 L Potassium 6.6 H* Chloride 97.2 L Carbon Dioxide 24 Anion Gap 20 BUN 24 H Creatinine 5.1 H Estimated GFR 16 BUN/Creatinine Ratio 5 Glucose 97 Calcium 7.0 L Phosphorus Iron 63 TIBC 144 L % Saturation 43.75 Transferrin 130 L Ferritin Lactate Dehydrogenase Folate Blood Type Antibody Screen Crossmatch 10/26/17 10/26/17 10/26/17 13:46 13:46 13:46 WBC RBC Hgb Hct MCV MCH MCHC RDW Plt Count Lymph % (Auto) [place] % (Auto) Eos % (Auto) Baso % (Auto) Lymph # [place] # Eos # Baso # Seg Neutrophils % Seg Neutrophils # Sodium Potassium Chloride Carbon Dioxide Anion Gap BUN Creatinine Estimated GFR BUN/Creatinine Ratio Glucose Calcium Phosphorus Iron TIBC % Saturation Transferrin Ferritin 1014.0 H Lactate Dehydrogenase 476 H Folate > 20.00 Blood Type Antibody Screen Crossmatch Assessment and Plan - Patient Problems (1) Anemia Current Visit: Yes Status: Acute Plan to address problem: Proceed with iron tibc ferritin retic b12 and folate. His smear shows slight schistocytes. LDH is elevated. D/w nephrology Dr. Angulo. There s good possibility for MAHA causin renal failure. Will proceed with plasma exchange with [facility]. D/w Dr Simms of blood bank who agrees. Informed consent obtained from patient. Very complicated decision making.
--- NOTE | 2017-10-27 00:12 | History and Physical Report ---
CHIEF COMPLAINT: Nausea and vomiting and diarrhea of 2 days' duration. HISTORY OF PRESENT ILLNESS: A 31-year-old female with end-stage renal disease, lupus, hypothyroidism, anemia, hypertension, comes in for nausea, dizziness, and vomiting. One month duration, more so for the last 2 days. No shortness of breath. No chest pain. No palpitations. No exacerbating or relieving factors. Chest pain is about 8 x 10 that is relieved by pain medications. PAST MEDICAL HISTORY: Hypertension, lupus, hypothyroidism, anemia. PAST SURGICAL HISTORY: None. FAMILY HISTORY: No significant family history. SOCIAL HISTORY: Does not smoke. No alcohol, no recreational drugs. REVIEW OF SYSTEMS: Significant for nausea, vomiting, diarrhea. Abdominal pain off and on. Otherwise, review of systems is essentially negative. Does not feel weak. Does not feel paralyzed. A 14-point review of systems done. CURRENT MEDICATIONS: On chart. PHYSICAL EXAMINATION: GENERAL: Young male, cooperative during examination. VITAL SIGNS: Blood pressure is 143/95, temperature 98, pulse is 70, respirations are 20. HEENT: Unremarkable. Pale mucous membranes. NECK: Supple, no lymphadenopathy, no thyromegaly. LUNGS: Clear to auscultation and percussion. Good air entry. CARDIOVASCULAR: S1, S2 heard. No gallop, no murmur, no rub. Apical impulse in left fifth intercostal space and midclavicular line. ABDOMEN: Soft and benign. No hepatosplenomegaly. No guarding, no rigidity. Hernial orifices are normal. EXTREMITIES: Good pedal pulses. No pedal edema. LABORATORY DATA: Significant for hemoglobin of 4.9, hematocrit of 14.6, potassium of 7.6, BUN and creatinine of 67 and 10.0. ASSESSMENT AND PLAN: 1. Acute anemia, probably secondary to end-stage renal disease and other multifactorial factors. The patient to be transfused 2 units of blood immediately. 2. Hyperkalemia, severe. The patient to get aggressive anti hyperkalemia treatment. Recheck the potassium and if not normal, recheck again. 3. End-stage renal disease and needs dialysis. 4. Hypertension. Continue antihypertensives. 5. Deep venous thrombosis prophylaxis. Heparin 5000 q. 12h. JOB# [id number] VSM/NTS
[2017-10-27] MEDS: DILAUDID IV PRN ×4 (01:43→21:14)
[2017-10-27 02:46] LABS: Calcium 7.9 mg/dL (8.4-10.2); Chloride 93.9 mmol/L (98-107); Potassium 4.3 mmol/L (3.6-5.0)
[2017-10-27 06:14] LABS: Basophils % (Auto) 0.1 % (0.0-1.8); Hematocrit 27.9 % (35.5-45.6); Hemoglobin 9.7 gm/dl (11.8-15.2); Mean Corpuscular HGB Conc 35 % (32-34); Mean Corpuscular Hemoglobin 30 pg (28-32); Mean Corpuscular Volume 88 fl (84-94); Platelet Count 130 K/mm3 (140-440); Red Blood Count 3.19 M/mm3 (3.65-5.03); Red Cell Distribution Width 15.4 % (13.2-15.2); White Blood Count 7.2 K/mm3 (4.5-11.0)
[2017-10-27 06:33] LABS: Calcium 7.3 mg/dL (8.4-10.2); Chloride 96.5 mmol/L (98-107); Phosphorous 6.2 mg/dL (2.5-4.5)
--- NOTE | 2017-10-27 07:18 | Ultrasound Report ---
FINAL REPORT EXAM: US RENAL BILAT HISTORY: Renal failure COMPARISONS: None. FINDINGS: Grayscale and color Doppler ultrasound evaluation of the kidneys and bladder The right kidney measures 11.7 cm and the left kidney measures 12.5 cm in length. No hydronephrosis or echogenic shadowing foci to suggest nephrolithiasis. Renal parenchymal echogenicity is diffusely increased. No abdominal ascites or free fluid in Morison's pouch. In the lower pole of the left kidney there is a lobular 4.6 cm simple appearing cyst. Septated cysts are seen in the upper and lower pole of right kidney measuring up to 2.8 cm. IMPRESSION: Diffuse increased renal parenchymal echogenicity without hydronephrosis may be due to medical renal disease.
[2017-10-27] MEDS ORDERED: KIONEX PO ONE (10:08)
[2017-10-27] MEDS: THERAGRAN Tab PO SCH (10:12)
[2017-10-27] MEDS: TAPAZOLE PO SCH (10:13)
[2017-10-27] MEDS: PLAQUENIL PO SCH (10:13)
[2017-10-27] MEDS: NORVASC PO SCH (10:14)
[2017-10-27] MEDS: HEPARIN SUB-Q SCH ×2 (10:17→21:15)
[2017-10-27] MEDS: ZOFRAN IV PRN (10:26)
--- NOTE | 2017-10-27 10:31 | Progress Note ---
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 Cr in the past was 3.5. Now with worsening renal failure. Could have FRANKLYN vs CKD progression -Initiated on IHD via fem VC -YAMILET, ANCA, Anti-DsDNA, Complements, Anti GBM, Hep panel, HIV, Urine PCR ordered -Hep Panel, HIV -ve -Urine PCR shows nephrotic range proteinuria. UA did not have red cells. -Renal US shows CKD, no hydronephrosis. -3 day pulse of Solumedrol 1 gm daily IV started 10/26. Afterwards prednisone 60 mg daily. -Discussed Risks and benifits of Renal biopsy with patient risks including bleeding severe enough to require embolization or surgery, infection, hypotension, even in very rare cases. Pt agrees to going ahead with the renal biopsy. Plan for IR Renal bx tomorrow. Will keep Hg >10 for bx so will check CBC in evening today and give blood transfusion if needed. NPO past EVIE bell. 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 Plasma exchange started per him. -Transfusion PRN per primary and hemonc Hyperkalemia: -s/p HD last night. Low K diet. Essential Hypertension: -Titrate BP meds PRN to keep SBP <130 -Avoid Salomon inh/ARBs SLE: -Can continue home meds -Per primary Plan d/w Dr Mabry. Juan Angulo MD Nephrology, Hypertension, Dialysis, Transplantation Phone no: [phone] Subjective Date of service: 10/27/17 Principal diagnosis: ARF/CKD Acute Hemolytic anemia Interval history: s/p HD#2 yesterday. Denies CP/SHOB. Hemonc starting pt on plasma exchange. Objective - Exam Narrative Exam: [id number] HEENT: PERRLA Neck: No JVD Chest: CTAB CVS: RRR Abd: Soft/Nt/ND/BS+ Ext: No cce, Rt fem VC Psyche: Appropriate mood - Vital Signs Vital signs: Vital Signs - 12hr 10/27/17 10/27/17 10/27/17 00:01 03:18 04:00 Temperature 98.4 F Pulse Rate 71 Respiratory 20 Rate Blood Pressure 139/100 145/77 O2 Sat by Pulse Oximetry 10/27/17 10/27/17 10/27/17 07:54 07:55 07:58 Temperature 98.3 F Pulse Rate 74 76 110 H Respiratory 18 Rate Blood Pressure 162/105 123/88 O2 Sat by Pulse 97 99 88 Oximetry 10/27/17 10/27/17 10:14 10:26 Temperature Pulse Rate 104 H Respiratory 20 Rate Blood Pressure 130/90 O2 Sat by Pulse Oximetry - Lab 10/27/17 05:15 10/27/17 05:15 Most recent lab results Calcium 7.3 mg/dL (8.4-10.2) L 10/27/17 05:15 Phosphorus 6.20 mg/dL (2.5-4.5) H 10/27/17 05:15 Urine Creatinine 87.5 mg/dL (0.1-20.0) H 10/25/17 21:44 Urine Sodium 56 mmol/L 10/25/17 21:44 Urine Total Protein 868 mg/dL (5-11.8) H 10/25/17 21:44
--- NOTE | 2017-10-27 10:58 | Progress Note ---
<UMESH MUNSON - Last Filed: 10/27/17 11:20> Assessment and Plan Assessment and plan: The patient is a 31-year-old male presenting with a chief complaint of nausea and dizziness. The patient states for 1 month he has had frequent nausea and vomiting occasionally with hematemesis. Patient states she's felt dizzy for 1 month. Patient missed diarrhea for one month but denies melena or bright red blood per rectum. Patient states at times he has palpitations and suffers from fatigue, insomnia and pain all over for 1 month FRANKLYN vs CKD Nephrology following Initiated on HD Cr improving from one day ago Hyperkalemia Resolved, will continue to monitor Low K diet Hypertension Cont antihypertensives SLE Get sed rate Cont Plaquenil Anemia of chronic disease due to CKD: Rare shistocytes on smear Hemonc following Transfusion PRN History Interval history: Patient is resting comfortably in bed. He denies SOB, CP, N/V. He has no new complaints at this time Hospitalist Physical - Constitutional Vitals: Temp Pulse Resp BP Pulse Ox 98.3 F 104 H 20 130/90 88 10/27/17 07:54 10/27/17 10:14 10/27/17 10:26 10/27/17 10:14 10/27/17 07:58 General appearance: Present: no acute distress, well-nourished - EENT Eyes: Present: PERRL, EOM intact ENT: hearing intact, clear oral mucosa, dentition normal - Neck Neck: Present: supple, normal ROM - Respiratory Respiratory effort: normal Respiratory: bilateral: CTA - Cardiovascular Rhythm: regular Heart Sounds: Present: S1 & S2 - Extremities Extremities: no ischemia, No edema - Abdominal General gastrointestinal: soft, non-tender, non-distended - Integumentary Integumentary: Present: clear, warm, dry - Psychiatric Psychiatric: appropriate mood/affect, intact judgment & insight, memory intact, cooperative - Neurologic Neurologic: CNII-XII intact, moves all extremities - Allied Health Allied health notes reviewed: nursing Results - Labs CBC & Chem 7: 10/27/17 05:15 10/27/17 05:15 Labs: Laboratory Last Values WBC 7.2 K/mm3 (4.5-11.0) 10/27/17 05:15 RBC 3.19 M/mm3 (3.65-5.03) L 10/27/17 05:15 Hgb 9.7 gm/dl (11.8-15.2) L 10/27/17 05:15 Hct 27.9 % (35.5-45.6) L 10/27/17 05:15 MCV 88 fl (84-94) 10/27/17 05:15 MCH 30 pg (28-32) 10/27/17 05:15 MCHC 35 % (32-34) H 10/27/17 05:15 RDW 15.4 % (13.2-15.2) H 10/27/17 05:15 Plt Count 130 K/mm3 (140-440) L 10/27/17 05:15 Lymph % (Auto) 11.0 % (13.4-35.0) L 10/27/17 05:15 [place] % (Auto) 1.0 % (0.0-7.3) 10/27/17 05:15 Eos % (Auto) 0.0 % (0.0-4.3) 10/27/17 05:15 Baso % (Auto) 0.1 % (0.0-1.8) 10/27/17 05:15 Lymph # 0.8 K/mm3 (1.2-5.4) L 10/27/17 05:15 [place] # 0.1 K/mm3 (0.0-0.8) 10/27/17 05:15 Eos # 0.0 K/mm3 (0.0-0.4) 10/27/17 05:15 Baso # 0.0 K/mm3 (0.0-0.1) 10/27/17 05:15 Seg Neutrophils % 87.9 % (40.0-70.0) H 10/27/17 05:15 Seg Neutrophils # 6.4 K/mm3 (1.8-7.7) 10/27/17 05:15 ESR 42 mm/Hr (0-20) 10/27/17 05:15 PT 13.6 Sec. (12.2-14.9) 10/25/17 15:28 INR 0.99 (0.87-1.13) 10/25/17 15:28 APTT 30.9 Sec. (24.2-36.6) 10/25/17 15:28 Sodium 141 mmol/L (137-145) 10/27/17 05:15 Potassium 5.0 mmol/L (3.6-5.0) 10/27/17 05:15 Chloride 96.5 mmol/L (98-107) L 10/27/17 05:15 Carbon Dioxide 33 mmol/L (22-30) H 10/27/17 05:15 Anion Gap 17 mmol/L 10/27/17 05:15 BUN 19 mg/dL (9-20) 10/27/17 05:15 Creatinine 3.7 mg/dL (0.8-1.5) H 10/27/17 05:15 Estimated GFR 24 ml/min 10/27/17 05:15 BUN/Creatinine Ratio 5 % 10/27/17 05:15 Glucose 131 mg/dL (75-100) H 10/27/17 05:15 POC Glucose 117 (70-105) H 10/25/17 16:33 Hemoglobin A1c 6.9 % (4-6) H 10/25/17 14:37 Calcium 7.3 mg/dL (8.4-10.2) L 10/27/17 05:15 Phosphorus 6.20 mg/dL (2.5-4.5) H 10/27/17 05:15 Iron 63 ug/dL (49-181) 10/26/17 13:46 TIBC 144 mcg/dL (250-450) L 10/26/17 13:46 % Saturation 43.75 % 10/26/17 13:46 Transferrin 130 mg/dl (180-329) L 10/26/17 13:46 Ferritin 1014.0 ng/mL (13.0-400.0) H 10/26/17 13:46 Total Bilirubin < 0.20 mg/dL (0.1-1.2) 10/25/17 14:37 AST 15 units/L (5-40) 10/25/17 14:37 ALT 13 units/L (7-56) 10/25/17 14:37 Alkaline Phosphatase 73 units/L (35-129) 10/25/17 14:37 Lactate Dehydrogenase 476 units/L (91-180) H 10/26/17 13:46 Total Protein 6.6 g/dL (6.3-8.2) 10/25/17 14:37 Albumin 2.8 g/dL (3.9-5) L 10/25/17 14:37 Albumin/Globulin Ratio 0.7 % 10/25/17 14:37 Amylase 247 units/L (27-131) H 10/25/17 14:37 Lipase 152 units/L (13-60) H 10/25/17 14:37 Folate > 20.00 ng/mL (7.3-26.0) 10/26/17 13:46 Urine Color Yellow (Yellow) 10/25/17 21:44 Urine Turbidity Clear (Clear) 10/25/17 21:44 Urine pH 6.0 (5.0-7.0) 10/25/17 21:44 Ur Specific [place] 1.015 (1.003-1.030) 10/25/17 21:44 Urine Protein >500 mg/dL (Negative) 10/25/17 21:44 Urine Glucose (UA) Neg mg/dL (Negative) 10/25/17 21:44 Urine Ketones Neg mg/dL (Negative) 10/25/17 21:44 Urine Blood Neg (Negative) 10/25/17 21:44 Urine Nitrite Neg (Negative) 10/25/17 21:44 Urine Bilirubin Neg (Negative) 10/25/17 21:44 Urine Urobilinogen < 2.0 mg/dL (<2.0) 10/25/17 21:44 Ur Leukocyte Esterase Neg (Negative) 10/25/17 21:44 Urine WBC (Auto) 3.0 /HPF (0.0-6.0) 10/25/17 21:44 Urine RBC (Auto) 3.0 /HPF (0.0-6.0) 10/25/17 21:44 Urine Eosinophils 2% (None Seen) 10/25/17 21:44 Urine Creatinine 87.5 mg/dL (0.1-20.0) H 10/25/17 21:44 Protein/Creatinin Ratio 9.92 10/25/17 21:44 Urine Sodium 56 mmol/L 10/25/17 21:44 Urine Total Protein 868 mg/dL (5-11.8) H 10/25/17 21:44 Hep Bs Antigen Non-reactive (Negative) 10/25/17 16:31 Hepatitis C Antibody Non-reactive (NonReactive) 10/25/17 16:30 HIV 1&2 Antibody Rapid Non react (Non React) 10/25/17 16:22 HIV P24 Antigen Non react (Non React) 10/25/17 16:22 Schistocytes Smear Rare 10/25/17 16:22 Blood Type B POSITIVE 10/25/17 15:30 Antibody Screen Negative 10/25/17 15:30 Crossmatch See Detail 10/25/17 15:30 <FERNANDOCAROLANN M - Last Filed: 10/27/17 14:57> Assessment and Plan Assessment and plan: I saw and evaluated the patient. I agree with the findings and the plan of care as documented in the PA's note, with the following corrections and additions. Patient is being having plasma exchange. Hospitalist Physical - Constitutional Vitals: Temp Pulse Resp BP Pulse Ox 98.3 F 83 20 163/101 99 10/27/17 07:54 10/27/17 12:29 10/27/17 10:26 10/27/17 12:29 10/27/17 12:29 Results - Labs CBC & Chem 7: 10/27/17 05:15 10/27/17 05:15 Labs: Laboratory Last Values WBC 7.2 K/mm3 (4.5-11.0) 10/27/17 05:15 RBC 3.19 M/mm3 (3.65-5.03) L 10/27/17 05:15 Hgb 9.7 gm/dl (11.8-15.2) L 10/27/17 05:15 Hct 27.9 % (35.5-45.6) L 10/27/17 05:15 MCV 88 fl (84-94) 10/27/17 05:15 MCH 30 pg (28-32) 10/27/17 05:15 MCHC 35 % (32-34) H 10/27/17 05:15 RDW 15.4 % (13.2-15.2) H 10/27/17 05:15 Plt Count 130 K/mm3 (140-440) L 10/27/17 05:15 Lymph % (Auto) 11.0 % (13.4-35.0) L 10/27/17 05:15 [place] % (Auto) 1.0 % (0.0-7.3) 10/27/17 05:15 Eos % (Auto) 0.0 % (0.0-4.3) 10/27/17 05:15 Baso % (Auto) 0.1 % (0.0-1.8) 10/27/17 05:15 Lymph # 0.8 K/mm3 (1.2-5.4) L 10/27/17 05:15 [place] # 0.1 K/mm3 (0.0-0.8) 10/27/17 05:15 Eos # 0.0 K/mm3 (0.0-0.4) 10/27/17 05:15 Baso # 0.0 K/mm3 (0.0-0.1) 10/27/17 05:15 Seg Neutrophils % 87.9 % (40.0-70.0) H 10/27/17 05:15 Seg Neutrophils # 6.4 K/mm3 (1.8-7.7) 10/27/17 05:15 ESR 42 mm/Hr (0-20) 10/27/17 05:15 PT 13.6 Sec. (12.2-14.9) 10/25/17 15:28 INR 0.99 (0.87-1.13) 10/25/17 15:28 APTT 30.9 Sec. (24.2-36.6) 10/25/17 15:28 Sodium 141 mmol/L (137-145) 10/27/17 05:15 Potassium 5.0 mmol/L (3.6-5.0) 10/27/17 05:15 Chloride 96.5 mmol/L (98-107) L 10/27/17 05:15 Carbon Dioxide 33 mmol/L (22-30) H 10/27/17 05:15 Anion Gap 17 mmol/L 10/27/17 05:15 BUN 19 mg/dL (9-20) 10/27/17 05:15 Creatinine 3.7 mg/dL (0.8-1.5) H 10/27/17 05:15 Estimated GFR 24 ml/min 10/27/17 05:15 BUN/Creatinine Ratio 5 % 10/27/17 05:15 Glucose 131 mg/dL (75-100) H 10/27/17 05:15 POC Glucose 117 (70-105) H 10/25/17 16:33 Hemoglobin A1c 6.9 % (4-6) H 10/25/17 14:37 Calcium 7.3 mg/dL (8.4-10.2) L 10/27/17 05:15 Phosphorus 6.20 mg/dL (2.5-4.5) H 10/27/17 05:15 Iron 63 ug/dL (49-181) 10/26/17 13:46 TIBC 144 mcg/dL (250-450) L 10/26/17 13:46 % Saturation 43.75 % 10/26/17 13:46 Transferrin 130 mg/dl (180-329) L 10/26/17 13:46 Ferritin 1014.0 ng/mL (13.0-400.0) H 10/26/17 13:46 Total Bilirubin < 0.20 mg/dL (0.1-1.2) 10/25/17 14:37 AST 15 units/L (5-40) 10/25/17 14:37 ALT 13 units/L (7-56) 10/25/17 14:37 Alkaline Phosphatase 73 units/L (35-129) 10/25/17 14:37 Lactate Dehydrogenase 476 units/L (91-180) H 10/26/17 13:46 Total Protein 6.6 g/dL (6.3-8.2) 10/25/17 14:37 Albumin 2.8 g/dL (3.9-5) L 10/25/17 14:37 Albumin/Globulin Ratio 0.7 % 10/25/17 14:37 Amylase 247 units/L (27-131) H 10/25/17 14:37 Lipase 152 units/L (13-60) H 10/25/17 14:37 Folate > 20.00 ng/mL (7.3-26.0) 10/26/17 13:46 Urine Color Yellow (Yellow) 10/25/17 21:44 Urine Turbidity Clear (Clear) 10/25/17 21:44 Urine pH 6.0 (5.0-7.0) 10/25/17 21:44 Ur Specific [place] 1.015 (1.003-1.030) 10/25/17 21:44 Urine Protein >500 mg/dL (Negative) 10/25/17 21:44 Urine Glucose (UA) Neg mg/dL (Negative) 10/25/17 21:44 Urine Ketones Neg mg/dL (Negative) 10/25/17 21:44 Urine Blood Neg (Negative) 10/25/17 21:44 Urine Nitrite Neg (Negative) 10/25/17 21:44 Urine Bilirubin Neg (Negative) 10/25/17 21:44 Urine Urobilinogen < 2.0 mg/dL (<2.0) 10/25/17 21:44 Ur Leukocyte Esterase Neg (Negative) 10/25/17 21:44 Urine WBC (Auto) 3.0 /HPF (0.0-6.0) 10/25/17 21:44 Urine RBC (Auto) 3.0 /HPF (0.0-6.0) 10/25/17 21:44 Urine Eosinophils 2% (None Seen) 10/25/17 21:44 Urine Creatinine 87.5 mg/dL (0.1-20.0) H 10/25/17 21:44 Protein/Creatinin Ratio 9.92 10/25/17 21:44 Urine Sodium 56 mmol/L 10/25/17 21:44 Urine Total Protein 868 mg/dL (5-11.8) H 10/25/17 21:44 Hep Bs Antigen Non-reactive (Negative) 10/25/17 16:31 Hepatitis C Antibody Non-reactive (NonReactive) 10/25/17 16:30 HIV 1&2 Antibody Rapid Non react (Non React) 10/25/17 16:22 HIV P24 Antigen Non react (Non React) 10/25/17 16:22 Schistocytes Smear Rare 10/25/17 16:22 Blood Type B POSITIVE 10/25/17 15:30 Antibody Screen Negative 10/25/17 15:30 Crossmatch See Detail 10/25/17 15:30
--- NOTE | 2017-10-27 14:00 | Hem/Onc Progress Note ---
Assessment and Plan - Patient Problems (1) Anemia Current Visit: Yes Status: Acute Plan to address problem: B12 pending. Check hemolysis parameters. Day#2 plasma exchange today. Plan for 3 exchanges. Subjective Date of service: 10/27/17 Interval history: He feels well overall. No new complains. Tolerated Plasma exchange well Objective - Constitutional Vitals: Last Vital Signs Temp 98.3 F 10/27/17 07:54 Pulse 83 10/27/17 12:29 Resp 20 10/27/17 10:26 BP 163/101 10/27/17 12:29 Pulse Ox 99 10/27/17 12:29 Pain Intensity (0-10): denies any pain General appearance: no acute distress - EENT Eyes: PERRL ENT: hearing intact, clear oral mucosa Lymph node exam: negative cervical - Neck Neck: supple - Respiratory Respiratory effort: Positive: normal Respiratory: bilateral: CTA - Labs Lab Results: Laboratory Results - last 24 hr 10/26/17 10/26/17 10/26/17 13:46 13:46 13:46 WBC 11.9 H RBC 3.45 L Hgb 10.4 L D Hct 29.9 L D MCV 87 MCH 30 MCHC 35 H RDW 15.2 Plt Count 143 Lymph % (Auto) 8.4 L [place] % (Auto) 2.7 Eos % (Auto) 0.0 Baso % (Auto) 0.1 Lymph # 1.0 L [place] # 0.3 Eos # 0.0 Baso # 0.0 Seg Neutrophils % 88.8 H Seg Neutrophils # 10.5 H ESR Sodium 136 L 135 L Potassium 6.1 H* 6.6 H* Chloride 97.5 L 97.2 L Carbon Dioxide 25 24 Anion Gap 20 20 BUN 24 H 24 H Creatinine 5.1 H 5.1 H Estimated GFR 16 16 BUN/Creatinine Ratio 5 5 Glucose 92 97 Calcium 7.1 L 7.0 L Phosphorus 5.60 H Iron TIBC % Saturation Transferrin Ferritin Lactate Dehydrogenase Folate 10/26/17 10/26/17 10/26/17 13:46 13:46 13:46 WBC 11.3 H RBC 3.73 Hgb 11.1 L Hct 32.3 L MCV 87 MCH 30 MCHC 34 RDW 15.5 H Plt Count 146 Lymph % (Auto) 7.9 L [place] % (Auto) 2.5 Eos % (Auto) 0.0 Baso % (Auto) 0.1 Lymph # 0.9 L [place] # 0.3 Eos # 0.0 Baso # 0.0 Seg Neutrophils % 89.5 H Seg Neutrophils # 10.1 H ESR Sodium Potassium Chloride Carbon Dioxide Anion Gap BUN Creatinine Estimated GFR BUN/Creatinine Ratio Glucose Calcium Phosphorus Iron 63 TIBC 144 L % Saturation 43.75 Transferrin 130 L Ferritin 1014.0 H Lactate Dehydrogenase Folate 10/26/17 10/26/17 10/27/17 13:46 13:46 01:51 WBC RBC Hgb Hct MCV MCH MCHC RDW Plt Count Lymph % (Auto) [place] % (Auto) Eos % (Auto) Baso % (Auto) Lymph # [place] # Eos # Baso # Seg Neutrophils % Seg Neutrophils # ESR Sodium 138 Potassium 4.3 D Chloride 93.9 L Carbon Dioxide 34 H D Anion Gap 14 BUN 13 Creatinine 3.1 H Estimated GFR 29 BUN/Creatinine Ratio 4 Glucose 126 H Calcium 7.9 L Phosphorus Iron TIBC % Saturation Transferrin Ferritin Lactate Dehydrogenase 476 H Folate > 20.00 10/27/17 10/27/17 10/27/17 05:15 05:15 05:15 WBC 7.2 RBC 3.19 L Hgb 9.7 L Hct 27.9 L MCV 88 MCH 30 MCHC 35 H RDW 15.4 H Plt Count 130 L Lymph % (Auto) 11.0 L [place] % (Auto) 1.0 Eos % (Auto) 0.0 Baso % (Auto) 0.1 Lymph # 0.8 L [place] # 0.1 Eos # 0.0 Baso # 0.0 Seg Neutrophils % 87.9 H Seg Neutrophils # 6.4 ESR 42 Sodium 141 Potassium 5.0 Chloride 96.5 L Carbon Dioxide 33 H Anion Gap 17 BUN 19 Creatinine 3.7 H Estimated GFR 24 BUN/Creatinine Ratio 5 Glucose 131 H Calcium 7.3 L Phosphorus 6.20 H Iron TIBC % Saturation Transferrin Ferritin Lactate Dehydrogenase Folate
[2017-10-27 17:42] LABS: Basophils % (Auto) 0.1 % (0.0-1.8); Hematocrit 29.2 % (35.5-45.6); Hemoglobin 10.1 gm/dl (11.8-15.2); Mean Corpuscular HGB Conc 35 % (32-34); Mean Corpuscular Hemoglobin 30 pg (28-32); Mean Corpuscular Volume 88 fl (84-94); Platelet Count 158 K/mm3 (140-440); Red Blood Count 3.34 M/mm3 (3.65-5.03); Red Cell Distribution Width 15.5 % (13.2-15.2); White Blood Count 10.5 K/mm3 (4.5-11.0)
[2017-10-27 17:43] LABS: Reticulocyte % 0.89 % (0.78-2.58)
[2017-10-27] MEDS ORDERED: CALCIUM GLUCONATE 1,000 MG in NACL 0.9% 100 ML IV ONE (18:00)
[2017-10-27 18:06] LABS: Calcium 6.9 mg/dL (8.4-10.2); Chloride 96.8 mmol/L (98-107); Potassium 3.9 mmol/L (3.6-5.0)
[2017-10-27 18:49] LABS: Smear for Schistocytes Rare
[2017-10-27] MEDS ORDERED: NACL 0.9% 1000 ML 1,000 ML ONE (21:10)
[2017-10-27] MEDS: TYLENOL PO PRN (21:13)
[2017-10-27] MEDS: BENADRYL PO PRN (21:13)
[2017-10-27] MEDS ORDERED: HEPARIN 10,000 UNITS/10 ML IV PRN (22:00)
[2017-10-27] MEDS ORDERED: NACL 0.9% 1000 ML 1,000 ML IV SCH (22:00)
[2017-10-28 06:39] LABS: Hematocrit 26.7 % (35.5-45.6); Hemoglobin 9.2 gm/dl (11.8-15.2); Mean Corpuscular HGB Conc 34 % (32-34); Mean Corpuscular Hemoglobin 31 pg (28-32); Mean Corpuscular Volume 89 fl (84-94); Platelet Count 142 K/mm3 (140-440); Red Blood Count 3.02 M/mm3 (3.65-5.03); Red Cell Distribution Width 15.1 % (13.2-15.2); White Blood Count 10.5 K/mm3 (4.5-11.0)
[2017-10-28 06:59] LABS: Calcium 6.2 mg/dL (8.4-10.2); Chloride 96.6 mmol/L (98-107); Phosphorous 9.5 mg/dL (2.5-4.5); Potassium 3.8 mmol/L (3.6-5.0)
[2017-10-28 08:07] LABS: Basophils % (Manual) 0 % (0.0-1.8); Blastocytes % (Manual) 0 %; Diff Status Complete; Eosinophils % (Manual) 0 % (0.0-4.3); Platelet Estimate Consistent w Auto; RBC Morphology Normal
[2017-10-28] MEDS: TAPAZOLE PO SCH (09:10)
[2017-10-28] MEDS: PLAQUENIL PO SCH (09:10)
[2017-10-28] MEDS: DILAUDID IV PRN ×3 (09:11→22:12)
[2017-10-28] MEDS: NORVASC PO SCH (09:11)
[2017-10-28] MEDS: HEPARIN SUB-Q SCH ×2 (09:12→22:12)
[2017-10-28] MEDS: THERAGRAN Tab PO SCH (09:12)
--- NOTE | 2017-10-28 09:58 | Progress Note ---
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 Cr in the past was 3.5. Now with worsening renal failure. Could have FRANKLYN vs CKD progression -Initiated on IHD via fem VC. Last HD Tuesday. BUN/Cr worsening, Plan for HD tomorrow. -YAMILET, ANCA, Anti-DsDNA, Complements, Anti GBM, Hep panel, HIV, Urine PCR ordered -Hep Panel, HIV -ve -Urine PCR shows nephrotic range proteinuria. UA did not have red cells. -Renal US shows CKD, no hydronephrosis. -3 day pulse of Solumedrol 1 gm daily IV started 10/26. Start prednisone 60 mg daily from tomorrow. -Discussed Risks and benifits of Renal biopsy with patient risks including bleeding severe enough to require embolization or surgery, infection, hypotension, even in very rare cases. Pt agrees to going ahead with the renal biopsy. -Plan for IR Renal bx was today but postponed till tuesday by radiology. Will keep Hg >10 for bx so will check CBC on Tuesday and give blood transfusion if needed. NPO past MDN on Tuesday. 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 Plasma exchange started per him. 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 Hyperphosphatemia: -Start renvella WMs Hyperkalemia: -Improved with HD. Low K diet. Essential Hypertension: -Titrate BP meds PRN to keep SBP <130 -Avoid Salomon inh/ARBs SLE: -Can continue home meds -Per primary Plan d/w LISSETH. Juan Anguol MD Nephrology, Hypertension, Dialysis, Transplantation Phone no: [phone] Subjective Date of service: 10/28/17 Principal diagnosis: ARF/CKD Acute Hemolytic anemia Interval history: s/p HD on Tuesday. UOP low. Denies CP/SHOB. Also on Plasma exchange via hemonc. Objective - Exam Narrative Exam: [id number] HEENT: PERRLA Neck: No JVD Chest: CTAB CVS: RRR Abd: Soft/Nt/ND/BS+ Ext: No cce, Rt fem VC Psyche: Appropriate mood - Vital Signs Vital signs: Vital Signs - 12hr 10/27/17 10/27/17 10/28/17 22:00 23:11 00:44 Temperature 98.5 F Pulse Rate 82 82 Respiratory 18 18 Rate Blood Pressure 166/93 O2 Sat by Pulse 98 Oximetry 10/28/17 10/28/17 05:15 09:11 Temperature 97.5 F L Pulse Rate 71 74 Respiratory 20 20 Rate Blood Pressure 164/99 174/106 O2 Sat by Pulse 96 Oximetry - Lab 10/28/17 05:46 10/28/17 05:46 Most recent lab results Calcium 6.2 mg/dL (8.4-10.2) L 10/28/17 05:46 Phosphorus 9.50 mg/dL (2.5-4.5) H D 10/28/17 05:46 Urine Creatinine 87.5 mg/dL (0.1-20.0) H 10/25/17 21:44 Urine Sodium 56 mmol/L 10/25/17 21:44 Urine Total Protein 868 mg/dL (5-11.8) H 10/25/17 21:44
[2017-10-28] MEDS: RENVELA PO SCH ×2 (11:30→18:58)
--- NOTE | 2017-10-28 11:40 | Progress Note ---
<UMESH MUNSON - Last Filed: 10/28/17 11:57> Assessment and Plan Assessment and plan: The patient is a 31-year-old male presenting with a chief complaint of nausea and dizziness. The patient states for 1 month he has had frequent nausea and vomiting occasionally with hematemesis. Patient states she's felt dizzy for 1 month. Patient missed diarrhea for one month but denies melena or bright red blood per rectum. Patient states at times he has palpitations and suffers from fatigue, insomnia and pain all over for 1 month Anemia of chronic disease due to CKD: -Does have rare shistocytes on smear -Hemonc following Plasma exchange started per him , today will be Day #3 -Transfusion PRN per primary and hemonc Hyperkalemia: -Low K diet. Essential Hypertension: -Titrate BP meds PRN to keep SBP <130 -Avoid Salomon inh/ARBs Hyperkalemia Resolved, will continue to monitor Continue low K diet Hypertension Cont antihypertensives SLE Get sed rate Cont Plaquenil Hyperparthyroidism secondary to CKD sevelamer carbonate initiated Nephrology following History Interval history: Patient is resting comfortably in bed. He denies SOB, CP, N/V. He has no new complaints at this time Hospitalist Physical - Constitutional Vitals: Temp Pulse Resp BP Pulse Ox 97.5 F L 74 20 174/106 96 10/28/17 05:15 10/28/17 09:11 10/28/17 09:11 10/28/17 09:11 10/28/17 05:15 General appearance: Present: no acute distress, well-nourished - EENT Eyes: Present: PERRL, EOM intact ENT: hearing intact, clear oral mucosa - Neck Neck: Present: supple, normal ROM - Respiratory Respiratory effort: normal Respiratory: bilateral: CTA - Cardiovascular Rhythm: regular Heart Sounds: Present: S1 & S2 - Extremities Extremities: no ischemia, No edema Peripheral Pulses: within normal limits - Abdominal General gastrointestinal: soft, non-tender, non-distended - Integumentary Integumentary: Present: clear, warm, dry - Psychiatric Psychiatric: appropriate mood/affect, cooperative - Neurologic Neurologic: CNII-XII intact, moves all extremities - Allied Health Allied health notes reviewed: nursing Results - Labs CBC & Chem 7: 10/28/17 05:46 10/28/17 05:46 Labs: Laboratory Last Values WBC 10.5 K/mm3 (4.5-11.0) 10/28/17 05:46 RBC 3.02 M/mm3 (3.65-5.03) L 10/28/17 05:46 Hgb 9.2 gm/dl (11.8-15.2) L 10/28/17 05:46 Hct 26.7 % (35.5-45.6) L 10/28/17 05:46 MCV 89 fl (84-94) 10/28/17 05:46 MCH 31 pg (28-32) 10/28/17 05:46 MCHC 34 % (32-34) 10/28/17 05:46 RDW 15.1 % (13.2-15.2) 10/28/17 05:46 Plt Count 142 K/mm3 (140-440) 10/28/17 05:46 Lymph % (Auto) 8.5 % (13.4-35.0) L 10/27/17 17:19 [place] % (Auto) 4.7 % (0.0-7.3) 10/27/17 17:19 Eos % (Auto) 0.0 % (0.0-4.3) 10/27/17 17:19 Baso % (Auto) 0.1 % (0.0-1.8) 10/27/17 17:19 Lymph # 0.9 K/mm3 (1.2-5.4) L 10/27/17 17:19 [place] # 0.5 K/mm3 (0.0-0.8) 10/27/17 17:19 Eos # 0.0 K/mm3 (0.0-0.4) 10/27/17 17:19 Baso # 0.0 K/mm3 (0.0-0.1) 10/27/17 17:19 Add Manual Diff Complete 10/28/17 05:46 Total Counted 100 10/28/17 05:46 Seg Neutrophils % Ctrs 10/28/17 05:46 Seg Neuts % (Manual) 86.0 % (40.0-70.0) H 10/28/17 05:46 Band Neutrophils % 3.0 % 10/28/17 05:46 Lymphocytes % (Manual) 7.0 % (13.4-35.0) L 10/28/17 05:46 Reactive Lymphs % (Man) 0 % 10/28/17 05:46 Monocytes % (Manual) 4.0 % (0.0-7.3) 10/28/17 05:46 Eosinophils % (Manual) 0 % (0.0-4.3) 10/28/17 05:46 Basophils % (Manual) 0 % (0.0-1.8) 10/28/17 05:46 Metamyelocytes % 0 % 10/28/17 05:46 Myelocytes % 0 % 10/28/17 05:46 Promyelocytes % 0 % 10/28/17 05:46 Blast Cells % 0 % 10/28/17 05:46 Nucleated RBC % Not Reportable 10/28/17 05:46 Seg Neutrophils # 9.1 K/mm3 (1.8-7.7) H 10/27/17 17:19 Seg Neutrophils # Man 9.0 K/mm3 (1.8-7.7) H 10/28/17 05:46 Band Neutrophils # 0.3 K/mm3 10/28/17 05:46 Lymphocytes # (Manual) 0.7 K/mm3 (1.2-5.4) L 10/28/17 05:46 Abs React Lymphs (Man) 0.0 K/mm3 10/28/17 05:46 Monocytes # (Manual) 0.4 K/mm3 (0.0-0.8) 10/28/17 05:46 Eosinophils # (Manual) 0.0 K/mm3 (0.0-0.4) 10/28/17 05:46 Basophils # (Manual) 0.0 K/mm3 (0.0-0.1) 10/28/17 05:46 Metamyelocytes # 0.0 K/mm3 10/28/17 05:46 Myelocytes # 0.0 K/mm3 10/28/17 05:46 Promyelocytes # 0.0 K/mm3 10/28/17 05:46 Blast Cells # 0.0 K/mm3 10/28/17 05:46 WBC Morphology Not Reportable 10/28/17 05:46 Hypersegmented Neuts Not Reportable 10/28/17 05:46 Hyposegmented Neuts Not Reportable 10/28/17 05:46 Hypogranular Neuts Not Reportable 10/28/17 05:46 Smudge Cells Not Reportable 10/28/17 05:46 Toxic Granulation Not Reportable 10/28/17 05:46 Toxic Vacuolation Not Reportable 10/28/17 05:46 Dohle Bodies Not Reportable 10/28/17 05:46 Pelger-Huet Anomaly Not Reportable 10/28/17 05:46 Kam Rods Not Reportable 10/28/17 05:46 Platelet Estimate Consistent w auto 10/28/17 05:46 Clumped Platelets Not Reportable 10/28/17 05:46 Plt Clumps, EDTA Not Reportable 10/28/17 05:46 Large Platelets Not Reportable 10/28/17 05:46 Giant Platelets Not Reportable 10/28/17 05:46 Platelet Satelliting Not Reportable 10/28/17 05:46 Plt Morphology Comment Not Reportable 10/28/17 05:46 RBC Morphology Normal 10/28/17 05:46 Dimorphic RBCs Not Reportable 10/28/17 05:46 Polychromasia Not Reportable 10/28/17 05:46 Hypochromasia Not Reportable 10/28/17 05:46 Poikilocytosis Not Reportable 10/28/17 05:46 Anisocytosis Not Reportable 10/28/17 05:46 Microcytosis Not Reportable 10/28/17 05:46 Macrocytosis Not Reportable 10/28/17 05:46 Spherocytes Not Reportable 10/28/17 05:46 Pappenheimer Bodies Not Reportable 10/28/17 05:46 Sickle Cells Not Reportable 10/28/17 05:46 Target Cells Not Reportable 10/28/17 05:46 Tear Drop Cells Not Reportable 10/28/17 05:46 Ovalocytes Not Reportable 10/28/17 05:46 Helmet Cells Not Reportable 10/28/17 05:46 [place]-Rusk Bodies Not Reportable 10/28/17 05:46 Manning Rings Not Reportable 10/28/17 05:46 [place] Cells Not Reportable 10/28/17 05:46 Bite Cells Not Reportable 10/28/17 05:46 Crenated Cell Not Reportable 10/28/17 05:46 Elliptocytes Not Reportable 10/28/17 05:46 Acanthocytes (Spur) Not Reportable 10/28/17 05:46 Rouleaux Not Reportable 10/28/17 05:46 Hemoglobin C Crystals Not Reportable 10/28/17 05:46 Schistocytes Not Reportable 10/28/17 05:46 Malaria parasites Not Reportable 10/28/17 05:46 ESR 42 mm/Hr (0-20) 10/27/17 05:15 Percent Retic 0.89 % (0.78-2.58) 10/27/17 17:16 Nasir Bodies Not Reportable 10/28/17 05:46 Hem Pathologist Commnt No 10/28/17 05:46 PT 13.7 Sec. (12.2-14.9) 10/28/17 05:46 INR 1.00 (0.87-1.13) 10/28/17 05:46 APTT 30.9 Sec. (24.2-36.6) 10/25/17 15:28 Sodium 146 mmol/L (137-145) H 10/28/17 05:46 Potassium 3.8 mmol/L (3.6-5.0) 10/28/17 05:46 Chloride 96.6 mmol/L (98-107) L 10/28/17 05:46 Carbon Dioxide 33 mmol/L (22-30) H 10/28/17 05:46 Anion Gap 20 mmol/L 10/28/17 05:46 BUN 48 mg/dL (9-20) H 10/28/17 05:46 Creatinine 6.0 mg/dL (0.8-1.5) H 10/28/17 05:46 Estimated GFR 14 ml/min 10/28/17 05:46 BUN/Creatinine Ratio 8 % 10/28/17 05:46 Glucose 136 mg/dL (75-100) H 10/28/17 05:46 POC Glucose 117 (70-105) H 10/25/17 16:33 Hemoglobin A1c 6.9 % (4-6) H 10/25/17 14:37 Calcium 6.2 mg/dL (8.4-10.2) L 10/28/17 05:46 Phosphorus 9.50 mg/dL (2.5-4.5) H D 10/28/17 05:46 Iron 63 ug/dL (49-181) 10/26/17 13:46 TIBC 144 mcg/dL (250-450) L 10/26/17 13:46 % Saturation 43.75 % 10/26/17 13:46 Transferrin 130 mg/dl (180-329) L 10/26/17 13:46 Ferritin 1014.0 ng/mL (13.0-400.0) H 10/26/17 13:46 Total Bilirubin < 0.20 mg/dL (0.1-1.2) 10/25/17 14:37 AST 15 units/L (5-40) 10/25/17 14:37 ALT 13 units/L (7-56) 10/25/17 14:37 Alkaline Phosphatase 73 units/L (35-129) 10/25/17 14:37 Lactate Dehydrogenase 245 units/L (91-180) H 10/27/17 01:51 Total Protein 6.6 g/dL (6.3-8.2) 10/25/17 14:37 Albumin 2.8 g/dL (3.9-5) L 10/25/17 14:37 Albumin/Globulin Ratio 0.7 % 10/25/17 14:37 Amylase 247 units/L (27-131) H 10/25/17 14:37 Lipase 152 units/L (13-60) H 10/25/17 14:37 Vitamin B12 761.2 pg/mL (211-911) 10/27/17 17:17 Folate > 20.00 ng/mL (7.3-26.0) 10/26/17 13:46 PTH Intact 516.1 pg/mL (15-65) H 10/28/17 08:07 Urine Color Yellow (Yellow) 10/25/17 21:44 Urine Turbidity Clear (Clear) 10/25/17 21:44 Urine pH 6.0 (5.0-7.0) 10/25/17 21:44 Ur Specific [place] 1.015 (1.003-1.030) 10/25/17 21:44 Urine Protein >500 mg/dL (Negative) 10/25/17 21:44 Urine Glucose (UA) Neg mg/dL (Negative) 10/25/17 21:44 Urine Ketones Neg mg/dL (Negative) 10/25/17 21:44 Urine Blood Neg (Negative) 10/25/17 21:44 Urine Nitrite Neg (Negative) 10/25/17 21:44 Urine Bilirubin Neg (Negative) 10/25/17 21:44 Urine Urobilinogen < 2.0 mg/dL (<2.0) 10/25/17 21:44 Ur Leukocyte Esterase Neg (Negative) 10/25/17 21:44 Urine WBC (Auto) 3.0 /HPF (0.0-6.0) 10/25/17 21:44 Urine RBC (Auto) 3.0 /HPF (0.0-6.0) 10/25/17 21:44 Urine Eosinophils 2% (None Seen) 10/25/17 21:44 Urine Creatinine 87.5 mg/dL (0.1-20.0) H 10/25/17 21:44 Protein/Creatinin Ratio 9.92 10/25/17 21:44 Urine Sodium 56 mmol/L 10/25/17 21:44 Urine Total Protein 868 mg/dL (5-11.8) H 10/25/17 21:44 Hep Bs Antigen Non-reactive (Negative) 10/25/17 16:31 Hepatitis C Antibody Non-reactive (NonReactive) 10/25/17 16:30 HIV 1&2 Antibody Rapid Non react (Non React) 10/25/17 16:22 HIV P24 Antigen Non react (Non React) 10/25/17 16:22 Schistocytes Smear Rare 10/27/17 17:16 Blood Type B POSITIVE 10/25/17 15:30 Antibody Screen Negative 10/25/17 15:30 Crossmatch See Detail 10/25/17 15:30 <CAROLANN KING M - Last Filed: 10/28/17 15:31> Assessment and Plan Assessment and plan: I saw and evaluated the patient. I agree with the findings and the plan of care as documented in the PA's progress note. Hospitalist Physical - Constitutional Vitals: Temp Pulse Resp BP Pulse Ox 97.5 F L 74 20 174/106 96 10/28/17 05:15 10/28/17 09:11 10/28/17 09:11 10/28/17 09:11 10/28/17 05:15 Results - Labs CBC & Chem 7: 10/28/17 05:46 10/28/17 05:46 Labs: Laboratory Last Values WBC 10.5 K/mm3 (4.5-11.0) 10/28/17 05:46 RBC 3.02 M/mm3 (3.65-5.03) L 10/28/17 05:46 Hgb 9.2 gm/dl (11.8-15.2) L 10/28/17 05:46 Hct 26.7 % (35.5-45.6) L 10/28/17 05:46 MCV 89 fl (84-94) 10/28/17 05:46 MCH 31 pg (28-32) 10/28/17 05:46 MCHC 34 % (32-34) 10/28/17 05:46 RDW 15.1 % (13.2-15.2) 10/28/17 05:46 Plt Count 142 K/mm3 (140-440) 10/28/17 05:46 Lymph % (Auto) 8.5 % (13.4-35.0) L 10/27/17 17:19 [place] % (Auto) 4.7 % (0.0-7.3) 10/27/17 17:19 Eos % (Auto) 0.0 % (0.0-4.3) 10/27/17 17:19 Baso % (Auto) 0.1 % (0.0-1.8) 10/27/17 17:19 Lymph # 0.9 K/mm3 (1.2-5.4) L 10/27/17 17:19 [place] # 0.5 K/mm3 (0.0-0.8) 10/27/17 17:19 Eos # 0.0 K/mm3 (0.0-0.4) 10/27/17 17:19 Baso # 0.0 K/mm3 (0.0-0.1) 10/27/17 17:19 Add Manual Diff Complete 10/28/17 05:46 Total Counted 100 10/28/17 05:46 Seg Neutrophils % Ctrs 10/28/17 05:46 Seg Neuts % (Manual) 86.0 % (40.0-70.0) H 10/28/17 05:46 Band Neutrophils % 3.0 % 10/28/17 05:46 Lymphocytes % (Manual) 7.0 % (13.4-35.0) L 10/28/17 05:46 Reactive Lymphs % (Man) 0 % 10/28/17 05:46 Monocytes % (Manual) 4.0 % (0.0-7.3) 10/28/17 05:46 Eosinophils % (Manual) 0 % (0.0-4.3) 10/28/17 05:46 Basophils % (Manual) 0 % (0.0-1.8) 10/28/17 05:46 Metamyelocytes % 0 % 10/28/17 05:46 Myelocytes % 0 % 10/28/17 05:46 Promyelocytes % 0 % 10/28/17 05:46 Blast Cells % 0 % 10/28/17 05:46 Nucleated RBC % Not Reportable 10/28/17 05:46 Seg Neutrophils # 9.1 K/mm3 (1.8-7.7) H 10/27/17 17:19 Seg Neutrophils # Man 9.0 K/mm3 (1.8-7.7) H 10/28/17 05:46 Band Neutrophils # 0.3 K/mm3 10/28/17 05:46 Lymphocytes # (Manual) 0.7 K/mm3 (1.2-5.4) L 10/28/17 05:46 Abs React Lymphs (Man) 0.0 K/mm3 10/28/17 05:46 Monocytes # (Manual) 0.4 K/mm3 (0.0-0.8) 10/28/17 05:46 Eosinophils # (Manual) 0.0 K/mm3 (0.0-0.4) 10/28/17 05:46 Basophils # (Manual) 0.0 K/mm3 (0.0-0.1) 10/28/17 05:46 Metamyelocytes # 0.0 K/mm3 10/28/17 05:46 Myelocytes # 0.0 K/mm3 10/28/17 05:46 Promyelocytes # 0.0 K/mm3 10/28/17 05:46 Blast Cells # 0.0 K/mm3 10/28/17 05:46 WBC Morphology Not Reportable 10/28/17 05:46 Hypersegmented Neuts Not Reportable 10/28/17 05:46 Hyposegmented Neuts Not Reportable 10/28/17 05:46 Hypogranular Neuts Not Reportable 10/28/17 05:46 Smudge Cells Not Reportable 10/28/17 05:46 Toxic Granulation Not Reportable 10/28/17 05:46 Toxic Vacuolation Not Reportable 10/28/17 05:46 Dohle Bodies Not Reportable 10/28/17 05:46 Pelger-Huet Anomaly Not Reportable 10/28/17 05:46 Kam Rods Not Reportable 10/28/17 05:46 Platelet Estimate Consistent w auto 10/28/17 05:46 Clumped Platelets Not Reportable 10/28/17 05:46 Plt Clumps, EDTA Not Reportable 10/28/17 05:46 Large Platelets Not Reportable 10/28/17 05:46 Giant Platelets Not Reportable 10/28/17 05:46 Platelet Satelliting Not Reportable 10/28/17 05:46 Plt Morphology Comment Not Reportable 10/28/17 05:46 RBC Morphology Normal 10/28/17 05:46 Dimorphic RBCs Not Reportable 10/28/17 05:46 Polychromasia Not Reportable 10/28/17 05:46 Hypochromasia Not Reportable 10/28/17 05:46 Poikilocytosis Not Reportable 10/28/17 05:46 Anisocytosis Not Reportable 10/28/17 05:46 Microcytosis Not Reportable 10/28/17 05:46 Macrocytosis Not Reportable 10/28/17 05:46 Spherocytes Not Reportable 10/28/17 05:46 Pappenheimer Bodies Not Reportable 10/28/17 05:46 Sickle Cells Not Reportable 10/28/17 05:46 Target Cells Not Reportable 10/28/17 05:46 Tear Drop Cells Not Reportable 10/28/17 05:46 Ovalocytes Not Reportable 10/28/17 05:46 Helmet Cells Not Reportable 10/28/17 05:46 [place] Bodies Not Reportable 10/28/17 05:46 [place] Rings Not Reportable 10/28/17 05:46 [place] Cells Not Reportable 10/28/17 05:46 Bite Cells Not Reportable 10/28/17 05:46 Crenated Cell Not Reportable 10/28/17 05:46 Elliptocytes Not Reportable 10/28/17 05:46 Acanthocytes (Spur) Not Reportable 10/28/17 05:46 Rouleaux Not Reportable 10/28/17 05:46 Hemoglobin C Crystals Not Reportable 10/28/17 05:46 Schistocytes Not Reportable 10/28/17 05:46 Malaria parasites Not Reportable 10/28/17 05:46 ESR 42 mm/Hr (0-20) 10/27/17 05:15 Percent Retic 0.89 % (0.78-2.58) 10/27/17 17:16 Nasir Bodies Not Reportable 10/28/17 05:46 Hem Pathologist Commnt No 10/28/17 05:46 PT 13.7 Sec. (12.2-14.9) 10/28/17 05:46 INR 1.00 (0.87-1.13) 10/28/17 05:46 APTT 30.9 Sec. (24.2-36.6) 10/25/17 15:28 Sodium 146 mmol/L (137-145) H 10/28/17 05:46 Potassium 3.8 mmol/L (3.6-5.0) 10/28/17 05:46 Chloride 96.6 mmol/L (98-107) L 10/28/17 05:46 Carbon Dioxide 33 mmol/L (22-30) H 10/28/17 05:46 Anion Gap 20 mmol/L 10/28/17 05:46 BUN 48 mg/dL (9-20) H 10/28/17 05:46 Creatinine 6.0 mg/dL (0.8-1.5) H 10/28/17 05:46 Estimated GFR 14 ml/min 10/28/17 05:46 BUN/Creatinine Ratio 8 % 10/28/17 05:46 Glucose 136 mg/dL (75-100) H 10/28/17 05:46 POC Glucose 117 (70-105) H 10/25/17 16:33 Hemoglobin A1c 6.9 % (4-6) H 10/25/17 14:37 Calcium 6.2 mg/dL (8.4-10.2) L 10/28/17 05:46 Phosphorus 9.50 mg/dL (2.5-4.5) H D 10/28/17 05:46 Iron 63 ug/dL (49-181) 10/26/17 13:46 TIBC 144 mcg/dL (250-450) L 10/26/17 13:46 % Saturation 43.75 % 10/26/17 13:46 Transferrin 130 mg/dl (180-329) L 10/26/17 13:46 Ferritin 1014.0 ng/mL (13.0-400.0) H 10/26/17 13:46 Total Bilirubin < 0.20 mg/dL (0.1-1.2) 10/25/17 14:37 AST 15 units/L (5-40) 10/25/17 14:37 ALT 13 units/L (7-56) 10/25/17 14:37 Alkaline Phosphatase 73 units/L (35-129) 10/25/17 14:37 Lactate Dehydrogenase 245 units/L (91-180) H 10/27/17 01:51 Total Protein 6.6 g/dL (6.3-8.2) 10/25/17 14:37 Albumin 2.8 g/dL (3.9-5) L 10/25/17 14:37 Albumin/Globulin Ratio 0.7 % 10/25/17 14:37 Amylase 247 units/L (27-131) H 10/25/17 14:37 Lipase 152 units/L (13-60) H 10/25/17 14:37 Vitamin B12 761.2 pg/mL (211-911) 10/27/17 17:17 Folate > 20.00 ng/mL (7.3-26.0) 10/26/17 13:46 PTH Intact 516.1 pg/mL (15-65) H 10/28/17 08:07 Urine Color Yellow (Yellow) 10/25/17 21:44 Urine Turbidity Clear (Clear) 10/25/17 21:44 Urine pH 6.0 (5.0-7.0) 10/25/17 21:44 Ur Specific [place] 1.015 (1.003-1.030) 10/25/17 21:44 Urine Protein >500 mg/dL (Negative) 10/25/17 21:44 Urine Glucose (UA) Neg mg/dL (Negative) 10/25/17 21:44 Urine Ketones Neg mg/dL (Negative) 10/25/17 21:44 Urine Blood Neg (Negative) 10/25/17 21:44 Urine Nitrite Neg (Negative) 10/25/17 21:44 Urine Bilirubin Neg (Negative) 10/25/17 21:44 Urine Urobilinogen < 2.0 mg/dL (<2.0) 10/25/17 21:44 Ur Leukocyte Esterase Neg (Negative) 10/25/17 21:44 Urine WBC (Auto) 3.0 /HPF (0.0-6.0) 10/25/17 21:44 Urine RBC (Auto) 3.0 /HPF (0.0-6.0) 10/25/17 21:44 Urine Eosinophils 2% (None Seen) 10/25/17 21:44 Urine Creatinine 87.5 mg/dL (0.1-20.0) H 10/25/17 21:44 Protein/Creatinin Ratio 9.92 10/25/17 21:44 Urine Sodium 56 mmol/L 10/25/17 21:44 Urine Total Protein 868 mg/dL (5-11.8) H 10/25/17 21:44 Hep Bs Antigen Non-reactive (Negative) 10/25/17 16:31 Hepatitis C Antibody Non-reactive (NonReactive) 10/25/17 16:30 HIV 1&2 Antibody Rapid Non react (Non React) 10/25/17 16:22 HIV P24 Antigen Non react (Non React) 10/25/17 16:22 Schistocytes Smear Rare 10/27/17 17:16 Blood Type B POSITIVE 10/25/17 15:30 Antibody Screen Negative 10/25/17 15:30 Crossmatch See Detail 10/25/17 15:30
[2017-10-28] MEDS ORDERED: NACL 0.9% 100 ML IV PRN (12:07)
[2017-10-28] MEDS ORDERED: CALCIUM GLUCONATE 1,000 MG in NACL 0.9% 100 ML IV ONE (13:00)
[2017-10-28] MEDS: ROCALTROL PO SCH (18:58)
[2017-10-28] MEDS: PROCRIT SUB-Q SCH (22:14)
[2017-10-29] MEDS: DILAUDID IV PRN ×3 (05:20→22:48)
[2017-10-29 06:06] LABS: Hemoglobin 8.8 gm/dl (11.8-15.2); Mean Corpuscular HGB Conc 34 % (32-34); Mean Corpuscular Hemoglobin 29 pg (28-32); Mean Corpuscular Volume 87 fl (84-94); Platelet Count 144 K/mm3 (140-440); Red Blood Count 2.98 M/mm3 (3.65-5.03); Red Cell Distribution Width 14.9 % (13.2-15.2); White Blood Count 12.1 K/mm3 (4.5-11.0)
[2017-10-29 06:17] LABS: Chloride 91.6 mmol/L (98-107); Phosphorous 9.4 mg/dL (2.5-4.5); Potassium 3.5 mmol/L (3.6-5.0)
[2017-10-29 07:09] LABS: Basophils % (Manual) 0 % (0.0-1.8); Blastocytes % (Manual) 0 %; Eosinophils % (Manual) 0 % (0.0-4.3)
[2017-10-29 07:10] LABS: Platelet Estimate Consistent w Auto
[2017-10-29 07:11] LABS: Diff Status Complete
[2017-10-29] MEDS: RENVELA PO SCH ×2 (09:33→16:45)
[2017-10-29] MEDS: NORVASC PO SCH (09:34)
[2017-10-29] MEDS: THERAGRAN Tab PO SCH (09:34)
[2017-10-29] MEDS: ROCALTROL PO SCH (09:35)
[2017-10-29] MEDS: TAPAZOLE PO SCH (09:35)
[2017-10-29] MEDS: PLAQUENIL PO SCH (09:35)
[2017-10-29] MEDS: HEPARIN SUB-Q SCH ×2 (09:44→22:48)
[2017-10-29] MEDS: ROXICODONE PO PRN ×2 (11:01→16:55)
[2017-10-29] MEDS: PERCOCET 5/325 PO PRN ×2 (11:02→16:54)
--- NOTE | 2017-10-29 11:32 | Progress Note ---
Assessment and Plan Assessment and plan: 31-year-old -[place] male with past medical history significant for lupus, anemia, CKD was admitted to the floor was a management of ESRD, lupus nephritis, anemia ESRD on hemodialysis -Likely due to lupus nephritis -Patient is on IV Solu-Medrol -Nephrology is following - will have renal biopsy on Tuesday Hyperparathyroidism, hyperthyroidism - Only to methimazole TTP - Patient has plasmapheresis 3 - Hematology oncology is following Hypertension - Controlled, continue current medications Anemia - Hemoglobin is 9.5 - We will follow DVT prophylaxis - on heparin Disposition - Continue inpatient care History Interval history: Patient was seen and evaluated this morning, patient said they generalized weakness is getting better. Hospitalist Physical - Physical exam Narrative exam: Not in cardiopulmonary distress. The patient appeared well nourished and normally developed. Vital signs as documented. Head exam is unremarkable. No scleral icterus . Neck is without jugular venous distension, thyromegaly, or carotid bruits. Lungs are clear to auscultation. Cardiac exam reveals regular rate and Rhythm. First and second heart sounds normal. No murmurs, rubs or gallops. Abdominal exam reveals normal bowel sounds, no masses, no organomegaly and no aortic enlargement. Extremities are nonedematous and both femoral and pedal pulses are normal. [employer]: Alert and oriented 3. No focal weakness. - Constitutional Vitals: Temp Pulse Resp BP Pulse Ox 97.6 F 79 20 156/100 95 10/29/17 05:30 10/29/17 09:34 10/29/17 05:30 10/29/17 09:34 10/29/17 05:30 General appearance: Present: no acute distress, well-nourished Results - Labs CBC & Chem 7: 10/29/17 05:10 10/29/17 05:10 Labs: Laboratory Last Values WBC 12.1 K/mm3 (4.5-11.0) H 10/29/17 05:10 RBC 2.98 M/mm3 (3.65-5.03) L 10/29/17 05:10 Hgb 8.8 gm/dl (11.8-15.2) L 10/29/17 05:10 Hct 26.0 % (35.5-45.6) L 10/29/17 05:10 MCV 87 fl (84-94) 10/29/17 05:10 MCH 29 pg (28-32) 10/29/17 05:10 MCHC 34 % (32-34) 10/29/17 05:10 RDW 14.9 % (13.2-15.2) 10/29/17 05:10 Plt Count 144 K/mm3 (140-440) 10/29/17 05:10 Lymph % (Auto) 8.5 % (13.4-35.0) L 10/27/17 17:19 [place] % (Auto) 4.7 % (0.0-7.3) 10/27/17 17:19 Eos % (Auto) 0.0 % (0.0-4.3) 10/27/17 17:19 Baso % (Auto) 0.1 % (0.0-1.8) 10/27/17 17:19 Lymph # 0.9 K/mm3 (1.2-5.4) L 10/27/17 17:19 [place] # 0.5 K/mm3 (0.0-0.8) 10/27/17 17:19 Eos # 0.0 K/mm3 (0.0-0.4) 10/27/17 17:19 Baso # 0.0 K/mm3 (0.0-0.1) 10/27/17 17:19 Add Manual Diff Complete 10/29/17 05:10 Total Counted 100 10/29/17 05:10 Seg Neutrophils % Customer Contact Specialist 10/29/17 05:10 Seg Neuts % (Manual) 90.0 % (40.0-70.0) H 10/29/17 05:10 Band Neutrophils % 3.0 % 10/29/17 05:10 Lymphocytes % (Manual) 6.0 % (13.4-35.0) L 10/29/17 05:10 Reactive Lymphs % (Man) 1.0 % 10/29/17 05:10 Monocytes % (Manual) 0 % (0.0-7.3) 10/29/17 05:10 Eosinophils % (Manual) 0 % (0.0-4.3) 10/29/17 05:10 Basophils % (Manual) 0 % (0.0-1.8) 10/29/17 05:10 Metamyelocytes % 0 % 10/29/17 05:10 Myelocytes % 0 % 10/29/17 05:10 Promyelocytes % 0 % 10/29/17 05:10 Blast Cells % 0 % 10/29/17 05:10 Nucleated RBC % Not Reportable 10/29/17 05:10 Seg Neutrophils # 9.1 K/mm3 (1.8-7.7) H 10/27/17 17:19 Seg Neutrophils # Man 10.9 K/mm3 (1.8-7.7) H 10/29/17 05:10 Band Neutrophils # 0.4 K/mm3 10/29/17 05:10 Lymphocytes # (Manual) 0.7 K/mm3 (1.2-5.4) L 10/29/17 05:10 Abs React Lymphs (Man) 0.1 K/mm3 10/29/17 05:10 Monocytes # (Manual) 0.0 K/mm3 (0.0-0.8) 10/29/17 05:10 Eosinophils # (Manual) 0.0 K/mm3 (0.0-0.4) 10/29/17 05:10 Basophils # (Manual) 0.0 K/mm3 (0.0-0.1) 10/29/17 05:10 Metamyelocytes # 0.0 K/mm3 10/29/17 05:10 Myelocytes # 0.0 K/mm3 10/29/17 05:10 Promyelocytes # 0.0 K/mm3 10/29/17 05:10 Blast Cells # 0.0 K/mm3 10/29/17 05:10 WBC Morphology Not Reportable 10/29/17 05:10 Hypersegmented Neuts Not Reportable 10/29/17 05:10 Hyposegmented Neuts Not Reportable 10/29/17 05:10 Hypogranular Neuts Not Reportable 10/29/17 05:10 Smudge Cells Not Reportable 10/29/17 05:10 Toxic Granulation Not Reportable 10/29/17 05:10 Toxic Vacuolation Not Reportable 10/29/17 05:10 Dohle Bodies Not Reportable 10/29/17 05:10 Pelger-Huet Anomaly Not Reportable 10/29/17 05:10 Kam Rods Not Reportable 10/29/17 05:10 Platelet Estimate Consistent w auto 10/29/17 05:10 Clumped Platelets Not Reportable 10/29/17 05:10 Plt Clumps, EDTA Not Reportable 10/29/17 05:10 Large Platelets Not Reportable 10/29/17 05:10 Giant Platelets Not Reportable 10/29/17 05:10 Platelet Satelliting Not Reportable 10/29/17 05:10 Plt Morphology Comment Not Reportable 10/29/17 05:10 RBC Morphology Not Reportable 10/29/17 05:10 Dimorphic RBCs Yes 10/29/17 05:10 Polychromasia Not Reportable 10/29/17 05:10 Hypochromasia Not Reportable 10/29/17 05:10 Poikilocytosis Not Reportable 10/29/17 05:10 Anisocytosis Not Reportable 10/29/17 05:10 Microcytosis Not Reportable 10/29/17 05:10 Macrocytosis Not Reportable 10/29/17 05:10 Spherocytes Not Reportable 10/29/17 05:10 Pappenheimer Bodies Not Reportable 10/29/17 05:10 Sickle Cells Not Reportable 10/29/17 05:10 Target Cells Not Reportable 10/29/17 05:10 Tear Drop Cells Not Reportable 10/29/17 05:10 Ovalocytes Not Reportable 10/29/17 05:10 Helmet Cells Not Reportable 10/29/17 05:10 [place] Bodies Not Reportable 10/29/17 05:10 [place] Rings Not Reportable 10/29/17 05:10 [place] Cells Not Reportable 10/29/17 05:10 Bite Cells Not Reportable 10/29/17 05:10 Crenated Cell Not Reportable 10/29/17 05:10 Elliptocytes Not Reportable 10/29/17 05:10 Acanthocytes (Spur) Not Reportable 10/29/17 05:10 Rouleaux Not Reportable 10/29/17 05:10 Hemoglobin C Crystals Not Reportable 10/29/17 05:10 Schistocytes Not Reportable 10/29/17 05:10 Malaria parasites Not Reportable 10/29/17 05:10 ESR 42 mm/Hr (0-20) 10/27/17 05:15 Percent Retic 0.89 % (0.78-2.58) 10/27/17 17:16 Nasir Bodies Not Reportable 10/29/17 05:10 Hem Pathologist Commnt No 10/29/17 05:10 PT 13.7 Sec. (12.2-14.9) 10/28/17 05:46 INR 1.00 (0.87-1.13) 10/28/17 05:46 APTT 30.9 Sec. (24.2-36.6) 10/25/17 15:28 Sodium 145 mmol/L (137-145) 10/29/17 05:10 Potassium 3.5 mmol/L (3.6-5.0) L 10/29/17 05:10 Chloride 91.6 mmol/L (98-107) L 10/29/17 05:10 Carbon Dioxide 34 mmol/L (22-30) H 10/29/17 05:10 Anion Gap 23 mmol/L 10/29/17 05:10 BUN 69 mg/dL (9-20) H 10/29/17 05:10 Creatinine 6.9 mg/dL (0.8-1.5) H 10/29/17 05:10 Estimated GFR 12 ml/min 10/29/17 05:10 BUN/Creatinine Ratio 10 % 10/29/17 05:10 Glucose 170 mg/dL (75-100) H 10/29/17 05:10 POC Glucose 117 (70-105) H 10/25/17 16:33 Hemoglobin A1c 6.9 % (4-6) H 10/25/17 14:37 Calcium 6.0 mg/dL (8.4-10.2) L 10/29/17 05:10 Phosphorus 9.40 mg/dL (2.5-4.5) H 10/29/17 05:10 Iron 63 ug/dL (49-181) 10/26/17 13:46 TIBC 144 mcg/dL (250-450) L 10/26/17 13:46 % Saturation 43.75 % 10/26/17 13:46 Transferrin 130 mg/dl (180-329) L 10/26/17 13:46 Ferritin 1014.0 ng/mL (13.0-400.0) H 10/26/17 13:46 Total Bilirubin < 0.20 mg/dL (0.1-1.2) 10/25/17 14:37 AST 15 units/L (5-40) 10/25/17 14:37 ALT 13 units/L (7-56) 10/25/17 14:37 Alkaline Phosphatase 73 units/L (35-129) 10/25/17 14:37 Lactate Dehydrogenase 245 units/L (91-180) H 10/27/17 01:51 Total Protein 6.6 g/dL (6.3-8.2) 10/25/17 14:37 Albumin 2.8 g/dL (3.9-5) L 10/25/17 14:37 Albumin/Globulin Ratio 0.7 % 10/25/17 14:37 Amylase 247 units/L (27-131) H 10/25/17 14:37 Lipase 152 units/L (13-60) H 10/25/17 14:37 Vitamin B12 761.2 pg/mL (211-911) 10/27/17 17:17 Folate > 20.00 ng/mL (7.3-26.0) 10/26/17 13:46 PTH Intact 516.1 pg/mL (15-65) H 10/28/17 08:07 Urine Color Yellow (Yellow) 10/25/17 21:44 Urine Turbidity Clear (Clear) 10/25/17 21:44 Urine pH 6.0 (5.0-7.0) 10/25/17 21:44 Ur Specific [place] 1.015 (1.003-1.030) 10/25/17 21:44 Urine Protein >500 mg/dL (Negative) 10/25/17 21:44 Urine Glucose (UA) Neg mg/dL (Negative) 10/25/17 21:44 Urine Ketones Neg mg/dL (Negative) 10/25/17 21:44 Urine Blood Neg (Negative) 10/25/17 21:44 Urine Nitrite Neg (Negative) 10/25/17 21:44 Urine Bilirubin Neg (Negative) 10/25/17 21:44 Urine Urobilinogen < 2.0 mg/dL (<2.0) 10/25/17 21:44 Ur Leukocyte Esterase Neg (Negative) 10/25/17 21:44 Urine WBC (Auto) 3.0 /HPF (0.0-6.0) 10/25/17 21:44 Urine RBC (Auto) 3.0 /HPF (0.0-6.0) 10/25/17 21:44 Urine Eosinophils 2% (None Seen) 10/25/17 21:44 Urine Creatinine 87.5 mg/dL (0.1-20.0) H 10/25/17 21:44 Protein/Creatinin Ratio 9.92 10/25/17 21:44 Urine Sodium 56 mmol/L 10/25/17 21:44 Urine Total Protein 868 mg/dL (5-11.8) H 10/25/17 21:44 Hep Bs Antigen Non-reactive (Negative) 10/25/17 16:31 Hepatitis C Antibody Non-reactive (NonReactive) 10/25/17 16:30 HIV 1&2 Antibody Rapid Non react (Non React) 10/25/17 16:22 HIV P24 Antigen Non react (Non React) 10/25/17 16:22 Schistocytes Smear Rare 10/27/17 17:16 Blood Type B POSITIVE 10/25/17 15:30 Antibody Screen Negative 10/25/17 15:30 Crossmatch See Detail 10/25/17 15:30
--- NOTE | 2017-10-29 14:12 | Progress Note ---
Assessment and Plan Anemia of Chronic Kidney Disease: Possible HUS/TTP: -Rare Schistocytes noted on smear -Dr Chavez (Hematology/Oncology) on board, s/p plasma exchanges x 3 -Epogen dosing during HD for anemia management -Follow up Hem/Oncology recs Acute Kidney Injury possibly ATN vs lupus nephritis vs progression of chronic kidney disease: -Renal function reviewed, SCr level was 6.9 today -Hemodialysis today for ultrafiltration and clearance via right femoral vas catheter -HD prescription adjusted to decreased bicarbonate bath with 3.0 calcium bath -Assess need for dialysis on daily basis -Renally dose medications -Planning on IR renal biopsy on Tuesday10/31/17, goal Hgb >10, monitor CBC daily , tranfuse PRBCs if needed -Urine protein/cr ratio showed nephrotic range proteinuria -YAMILET, ANCA, anti-DsDNA, anti-GBM, complements levels pending -Hepatitis and HIV -> negative -Obtain daily weight -Strict intake and output -Renal plan discussed with Dr Cano -Continue supportive therapy Hypocalcemia: -Adjusted HD prescription to higher calcium bath -Vit D 25 Hydroxy level pending -Continue calcitriol 0.5 mcg daily Secondary Hyperparathyroidism: -Started on calcitriol 0.5 mcg daily Hyperphosphatemia: -Phosphorus level was 9.4 today -Increase Renvela 1600 mg orally three times a day with meals for hyperphosphatemia management Hypertensive Chronic Kidney Disease: -Blood pressure stable on current regimen Subjective Date of service: 10/29/17 Principal diagnosis: ARF/CKD Acute Hemolytic anemia Interval history: Patient seen in Hemodialysis Unit, no complaints voiced, tolerating HD without difficulty. Objective - Vital Signs Vital signs: Vital Signs - 12hr 10/29/17 10/29/17 10/29/17 04:18 05:20 05:30 Temperature 97.6 F Pulse Rate 79 77 Respiratory 18 20 Rate Respiratory 18 Rate [ Generalized] Blood Pressure 135/82 O2 Sat by Pulse 95 Oximetry 10/29/17 09:34 Temperature Pulse Rate 79 Respiratory Rate Respiratory Rate [ Generalized] Blood Pressure 156/100 O2 Sat by Pulse Oximetry - General Appearance General appearance: well-developed (no acute distress) EENT: ATNC Neck: no JVD Respiratory: Present: Clear to Ascultation (unlabored on room air), Other Cardiology: regular, S1S2, other (Right femoral Vas catheter in use) Gastrointestinal: normoactive bowel sounds, no tenderness Integumentary: warm and dry Neurologic: alert and oriented x3 Musculoskeletal: other (no edema to both lower extremities) Psychiatric: mood/affect appropriate, cooperative - Lab 10/29/17 05:10 10/29/17 05:10 Most recent lab results Calcium 6.0 mg/dL (8.4-10.2) L 10/29/17 05:10 Phosphorus 9.40 mg/dL (2.5-4.5) H 10/29/17 05:10 Urine Creatinine 87.5 mg/dL (0.1-20.0) H 10/25/17 21:44 Urine Sodium 56 mmol/L 10/25/17 21:44 Urine Total Protein 868 mg/dL (5-11.8) H 10/25/17 21:44
[2017-10-29] MEDS: HEPARIN IV PRN (15:10)
[2017-10-29] MEDS ORDERED: NACL 0.9 (PRIMING MACHINE ONLY DIALYSIS) MC ONE (15:17)
[2017-10-29] MEDS: DELTASONE PO SCH (16:45)
[2017-10-29] MEDS: PROCRIT SUB-Q SCH (17:58)
[2017-10-29] MEDS ORDERED: CATHFLO IV ONE (22:50)
[2017-10-30] MEDS ORDERED: NORVASC PO ONE (05:02)
[2017-10-30 06:38] LABS: Basophils % (Auto) 0.1 % (0.0-1.8); Hematocrit 26.6 % (35.5-45.6); Mean Corpuscular HGB Conc 34 % (32-34); Mean Corpuscular Hemoglobin 30 pg (28-32); Mean Corpuscular Volume 88 fl (84-94); Platelet Count 150 K/mm3 (140-440); Red Blood Count 3.04 M/mm3 (3.65-5.03); Red Cell Distribution Width 14.9 % (13.2-15.2); White Blood Count 13.7 K/mm3 (4.5-11.0)
[2017-10-30 07:14] LABS: Calcium 7.3 mg/dL (8.4-10.2); Phosphorous 6.6 mg/dL (2.5-4.5)
[2017-10-30 07:15] LABS: Chloride 97.9 mmol/L (98-107); Potassium 4.1 mmol/L (3.6-5.0)
[2017-10-30] MEDS: RENVELA PO SCH ×3 (08:07→16:08)
[2017-10-30] MEDS: PERCOCET 5/325 PO PRN ×2 (08:12→15:13)
[2017-10-30] MEDS: ROXICODONE PO PRN ×2 (08:13→15:13)
[2017-10-30] MEDS: DELTASONE PO SCH (11:56)
[2017-10-30] MEDS: TAPAZOLE PO SCH (11:57)
[2017-10-30] MEDS: PLAQUENIL PO SCH (11:57)
[2017-10-30] MEDS: ROCALTROL PO SCH (11:57)
[2017-10-30] MEDS: THERAGRAN Tab PO SCH (11:58)
[2017-10-30] MEDS: NORVASC PO SCH (12:00)
[2017-10-30] MEDS: HEPARIN SUB-Q SCH ×2 (12:01→21:33)
--- NOTE | 2017-10-30 13:35 | Hem/Onc Progress Note ---
Subjective Date of service: 10/30/17 Interval history: Patient not in room. Platelet count improved after 2 days plasma exchange. Check cbc cmp and LDH in am to eval for further hemolysis . Objective - Constitutional Vitals: Last Vital Signs Temp 98.4 F 10/30/17 04:59 Pulse 66 10/30/17 05:20 Resp 18 10/30/17 05:20 BP 184/109 10/30/17 12:00 Pulse Ox 97 10/30/17 04:59 - Labs Lab Results: Laboratory Results - last 24 hr 10/30/17 10/30/17 06:00 06:00 WBC 13.7 H RBC 3.04 L Hgb 9.0 L Hct 26.6 L MCV 88 MCH 30 MCHC 34 RDW 14.9 Plt Count 150 Lymph % (Auto) 6.8 L [place] % (Auto) 5.0 Eos % (Auto) 0.0 Baso % (Auto) 0.1 Lymph # 0.9 L [place] # 0.7 Eos # 0.0 Baso # 0.0 Seg Neutrophils % 88.1 H Seg Neutrophils # 12.0 H Sodium 141 Potassium 4.1 Chloride 97.9 L Carbon Dioxide 28 Anion Gap 19 BUN 54 H Creatinine 5.4 H Estimated GFR 15 BUN/Creatinine Ratio 10 Glucose 120 H Calcium 7.3 L D Phosphorus 6.60 H D
--- NOTE | 2017-10-30 15:22 | Progress Note ---
Assessment and Plan Anemia of Chronic Kidney Disease: Possible HUS/TTP: -Rare Schistocytes noted on smear -Dr Chavez (Hematology/Oncology) on board, s/p plasma exchanges x 3 -Epogen dosing during HD for anemia management -Follow up Hem/Oncology recs Acute Kidney Injury possibly ATN vs lupus nephritis vs progression of chronic kidney disease: -Renal function reviewed, SCr level was 6.9 today -S/p post Hemodialysis treatment yesterday for ultrafiltration and clearance via right femoral vas catheter -No acute indication for HD today -Assess need for dialysis on daily basis -Renally dose medications -Planning on IR renal biopsy on Tuesday10/31/17, goal Hgb >10, monitor CBC daily , Hgb level was 9.0 today, transfuse PRBCs if needed, patient agreeable to PRBCs if needed -Urine protein/cr ratio showed nephrotic range proteinuria -YAMILET, ANCA, anti-DsDNA, anti-GBM, complements levels pending -Hepatitis and HIV -> negative -Obtain daily weight -Strict intake and output -Renal plan discussed with Dr Cano -Continue supportive therapy Hypocalcemia: -Adjusted HD prescription to higher calcium bath -Vit D 25 Hydroxy level pending -Continue calcitriol 0.5 mcg daily Secondary Hyperparathyroidism: -Started on calcitriol 0.5 mcg daily Hyperphosphatemia: -Phosphorus level decreased to 6.60 today -Continue Renvela 1600 mg orally three times a day with meals for hyperphosphatemia management Hypertensive Chronic Kidney Disease: -Blood pressure stable on current regimen Subjective Date of service: 10/30/17 Principal diagnosis: ARF/CKD Acute Hemolytic anemia Interval history: Patient seen in his room, no complaints voiced Objective - Vital Signs Vital signs: Vital Signs - 12hr 10/30/17 10/30/17 10/30/17 04:12 04:13 04:59 Temperature 98.4 F Pulse Rate 70 66 Respiratory 20 18 Rate Respiratory Rate [ Generalized] Blood Pressure 181/107 Blood Pressure 181/107 [Right] O2 Sat by Pulse 100 97 Oximetry 10/30/17 10/30/17 10/30/17 05:20 08:07 12:00 Temperature Pulse Rate 66 Respiratory Rate Respiratory 18 Rate [ Generalized] Blood Pressure 184/109 184/109 Blood Pressure [Right] O2 Sat by Pulse Oximetry - General Appearance General appearance: well-nourished (no acute distress) EENT: ATNC Neck: no JVD Respiratory: Present: Other (Lung sounds decreased bilaterally, unlabored on room air) Cardiology: regular, S1S2, other (ACCESS: Right femoral Vas Catheter intact) Gastrointestinal: normoactive bowel sounds, no tenderness Integumentary: warm and dry Neurologic: alert and oriented x3 Musculoskeletal: other (no edema to both lower extremities) Psychiatric: mood/affect appropriate, cooperative - Lab 10/30/17 06:00 10/30/17 06:00 Most recent lab results Calcium 7.3 mg/dL (8.4-10.2) L D 10/30/17 06:00 Phosphorus 6.60 mg/dL (2.5-4.5) H D 10/30/17 06:00 Urine Creatinine 87.5 mg/dL (0.1-20.0) H 10/25/17 21:44 Urine Sodium 56 mmol/L 10/25/17 21:44 Urine Total Protein 868 mg/dL (5-11.8) H 10/25/17 21:44
--- NOTE | 2017-10-30 16:21 | Progress Note ---
Assessment and Plan ESRD on hemodialysis -Likely due to lupus nephritis -Patient is on IV Solu-Medrol -Nephrology is following - will have renal biopsy on 10/31/17 Hyperparathyroidism and hyperthyroidism - Only to methimazole TTP - Patient has plasmapheresis 3 - Hematology oncology is following Hypertension - Controlled, continue current medications Anemia: of chronic disease - Hemoglobin is 9.5 - We Trend DVT prophylaxis - on heparin Disposition - Continue inpatient care Subjective Date of service: 10/30/17 Principal diagnosis: ARF/CKD Acute Hemolytic anemia Interval history: Pt seen and examined. No new complaint. Objective - Exam Narrative Exam: Constitutional: Well-nourished well-developed. In no distress Head: Normocephalic atraumatic Eyes: Pupils are equal round and reactive to light Nose: No enlarged turbinates, no septal deviation. Mouth: Moist mucous membranes. Neck: Supple no thyromegaly. No bruit. No JVD Heart: Regular rate and rhythm, S1-S2 abnormal. No rubs murmurs or gallop Lungs: Clear to auscultation bilaterally no rales or rhonchi Abdomen: Soft nontender both his upper extremities no edema orclubbing. Extremities: No edema no cyanosis and no clubbing. Neuro: Alert oriented -3 no focal sensory or motor deficit. Skin: No rashes no hyperemic spots - Constitutional Vitals: Vital Signs - 12hr 10/30/17 10/30/17 10/30/17 04:59 05:20 08:07 Temperature 98.4 F Pulse Rate 66 66 Respiratory 18 Rate Respiratory 18 Rate [ Generalized] Blood Pressure 184/109 Blood Pressure 181/107 [Right] O2 Sat by Pulse 97 Oximetry 10/30/17 12:00 Temperature Pulse Rate Respiratory Rate Respiratory Rate [ Generalized] Blood Pressure 184/109 Blood Pressure [Right] O2 Sat by Pulse Oximetry - Labs CBC & Chem 7: 10/30/17 06:00 10/30/17 06:00 Labs: Abnormal lab results 10/30/17 10/30/17 Range/Units 06:00 06:00 WBC 13.7 H (4.5-11.0) K/mm3 RBC 3.04 L (3.65-5.03) M/mm3 Hgb 9.0 L (11.8-15.2) gm/dl Hct 26.6 L (35.5-45.6) % Lymph % (Auto) 6.8 L (13.4-35.0) % Lymph # 0.9 L (1.2-5.4) K/mm3 Seg Neutrophils % 88.1 H (40.0-70.0) % Seg Neutrophils # 12.0 H (1.8-7.7) K/mm3 Chloride 97.9 L (98-107) mmol/L BUN 54 H (9-20) mg/dL Creatinine 5.4 H (0.8-1.5) mg/dL Glucose 120 H (75-100) mg/dL Calcium 7.3 L D (8.4-10.2) mg/dL Phosphorus 6.60 H D (2.5-4.5) mg/dL
[2017-10-30] MEDS: DILAUDID IV PRN (21:32)
[2017-10-31] MEDS ORDERED: NACL 0.9% 500 ML 500 ML IV ONE (00:48)
[2017-10-31] MEDS: ROXICODONE PO PRN ×3 (05:08→17:52)
[2017-10-31 06:08] LABS: Basophils % (Auto) 0.1 % (0.0-1.8); Hematocrit 28.1 % (35.5-45.6); Hemoglobin 9.8 gm/dl (11.8-15.2); Mean Corpuscular HGB Conc 35 % (32-34); Mean Corpuscular Hemoglobin 30 pg (28-32); Mean Corpuscular Volume 87 fl (84-94); Platelet Count 148 K/mm3 (140-440); Red Blood Count 3.21 M/mm3 (3.65-5.03); Red Cell Distribution Width 14.7 % (13.2-15.2)
[2017-10-31 06:27] LABS: INR 0.94 (0.87-1.13)
[2017-10-31] MEDS: CATAPRES PO SCH ×3 (06:27→17:52)
[2017-10-31 06:36] LABS: Calcium 7.7 mg/dL (8.4-10.2); Chloride 95.3 mmol/L (98-107); Potassium 4.2 mmol/L (3.6-5.0)
[2017-10-31] MEDS: RENVELA PO SCH ×3 (08:13→16:44)
[2017-10-31] MEDS ORDERED: VERSED IV ONE ×2 (08:44→09:30)
[2017-10-31] MEDS ORDERED: SUBLIMAZE ONE (08:44)
[2017-10-31] MEDS ORDERED: SUBLIMAZE IV ONE (09:30)
--- NOTE | 2017-10-31 09:48 | Procedure Note ---
Date of procedure: 10/31/17 Pre-op diagnosis: renal failure Post-op diagnosis: same Procedure: CT renal biopsy Anesthesia: other (conscious sedation) Surgeon: JANES HONG Estimated blood loss: none Pathology: list (18G core biopsy x 2) Specimen disposition: to lab Condition: stable Disposition: floor
--- NOTE | 2017-10-31 10:09 | Cat Scan Report ---
CT BIOPSY RENAL RIGHT History: Renal insufficiency, renal failure Description of procedure: Informed consent was obtained. Sterile technique was utilized. 1% lidocaine for skin anesthesia. Conscious sedation was accomplished with Versed and fentanyl. The patient was sedated for 10 minutes. Independent cardiorespiratory monitoring by RN. Intra-observer time of [address] guidance, a 17-gauge introducer needle was advanced to the inferior pole of the right kidney. 2 separate 18-gauge core biopsies were obtained. No complications. Impression: Successful CT-guided biopsy at the inferior pole of the right kidney.
[2017-10-31] MEDS ORDERED: NACL 0.9% 100 ML IV PRN (10:13)
--- NOTE | 2017-10-31 10:36 | Progress Note ---
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 Cr in the past was 3.5. Now with worsening renal failure. Could have [place] vs CKD progression -Initiated on IHD via fem VC. Last HD Tuesday. BUN/Cr worsening, Plan for HD today. -YAMILET, ANCA, Anti-DsDNA, Complements, Anti GBM, Hep panel, HIV, Urine PCR ordered -Hep Panel, HIV -ve -Urine PCR shows nephrotic range proteinuria. UA did not have red cells. -Renal US shows CKD, no hydronephrosis. -3 day pulse of Solumedrol 1 gm daily IV started 10/26 - 10/28. Now on prednisone 60 mg daily. -Discussed Risks and benifits of Renal biopsy with patient risks including bleeding severe enough to require embolization or surgery, infection, hypotension, even in very rare cases. Pt agreed to going ahead with the renal biopsy. -s/p CT guided Renal bx today. Will follow Path result. Strict bedrest, monitor CBC q8H, transfuse for Hg <8. 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 s/p 3 cycles of plasma exchange. -Transfusion PRN per primary and hemonc -[id number] antibody ordered. 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 Hyperphosphatemia: -Started renvella WMs Hyperkalemia: -Improved with HD. Low K diet. Essential Hypertension: -Titrate BP meds PRN to keep SBP <130, hydrazine started. -Avoid [place] inh/ARBs SLE: -Can continue home meds -Per primary Plan d/w LISSETH. Juan Angulo MD Nephrology, Hypertension, Dialysis, Transplantation Phone no: [phone] Subjective Date of service: 10/31/17 Principal diagnosis: ARF/CKD Acute Hemolytic anemia Interval history: s/p Renal bx today. Denies CP/SHOB. Objective - Exam Narrative Exam: [id number] HEENT: PERRLA Neck: No JVD Chest: CTAB CVS: RRR Abd: Soft/Nt/ND/BS+ Ext: No cce, Rt fem VC Psyche: Appropriate mood - Vital Signs Vital signs: Vital Signs - 12hr 10/30/17 10/30/17 10/31/17 23:00 23:18 05:08 Temperature 97.8 F Temperature [ Post-Procedure] Pulse Rate 83 Pulse Rate [ Intra-Procedure ] Pulse Rate [ Post-Procedure] Pulse Rate [Pre -Procedure] Respiratory 18 20 Rate Respiratory 18 Rate [ Generalized] Respiratory Rate [Intra- Procedure] Respiratory Rate [Post- Procedure] Respiratory Rate [Pre- Procedure] Blood Pressure 162/103 Blood Pressure [Intra- Procedure] Blood Pressure [Post-Procedure ] Blood Pressure [Pre-Procedure] O2 Sat by Pulse 99 Oximetry O2 Sat by Pulse Oximetry [ Intra-Procedure ] O2 Sat by Pulse Oximetry [Post -Procedure] O2 Sat by Pulse Oximetry [Pre- Procedure] 10/31/17 10/31/17 10/31/17 06:20 06:27 07:29 Temperature 97.9 F Temperature [ Post-Procedure] Pulse Rate 83 83 Pulse Rate [ Intra-Procedure ] Pulse Rate [ Post-Procedure] Pulse Rate [Pre -Procedure] Respiratory 18 Rate Respiratory Rate [ Generalized] Respiratory Rate [Intra- Procedure] Respiratory Rate [Post- Procedure] Respiratory Rate [Pre- Procedure] Blood Pressure 162/102 163/95 Blood Pressure [Intra- Procedure] Blood Pressure [Post-Procedure ] Blood Pressure [Pre-Procedure] O2 Sat by Pulse Oximetry O2 Sat by Pulse Oximetry [ Intra-Procedure ] O2 Sat by Pulse Oximetry [Post -Procedure] O2 Sat by Pulse Oximetry [Pre- Procedure] 10/31/17 10/31/17 10/31/17 09:20 09:30 09:35 Temperature Temperature [ Post-Procedure] Pulse Rate Pulse Rate [ 83 71 Intra-Procedure ] Pulse Rate [ Post-Procedure] Pulse Rate [Pre 77 -Procedure] Respiratory Rate Respiratory Rate [ Generalized] Respiratory 12 9 L Rate [Intra- Procedure] Respiratory Rate [Post- Procedure] Respiratory 12 Rate [Pre- Procedure] Blood Pressure Blood Pressure 146/99 150/97 [Intra- Procedure] Blood Pressure [Post-Procedure ] Blood Pressure 147/98 [Pre-Procedure] O2 Sat by Pulse Oximetry O2 Sat by Pulse 100 100 Oximetry [ Intra-Procedure ] O2 Sat by Pulse Oximetry [Post -Procedure] O2 Sat by Pulse 100 Oximetry [Pre- Procedure] 10/31/17 10/31/17 10/31/17 09:40 09:45 10:00 Temperature Temperature [ 97.9 F Post-Procedure] Pulse Rate Pulse Rate [ Intra-Procedure ] Pulse Rate [ 75 67 78 Post-Procedure] Pulse Rate [Pre -Procedure] Respiratory Rate Respiratory Rate [ Generalized] Respiratory Rate [Intra- Procedure] Respiratory 12 18 16 Rate [Post- Procedure] Respiratory Rate [Pre- Procedure] Blood Pressure Blood Pressure [Intra- Procedure] Blood Pressure 141/97 145/94 145/97 [Post-Procedure ] Blood Pressure [Pre-Procedure] O2 Sat by Pulse Oximetry O2 Sat by Pulse Oximetry [ Intra-Procedure ] O2 Sat by Pulse 100 100 99 Oximetry [Post -Procedure] O2 Sat by Pulse Oximetry [Pre- Procedure] - Lab 10/31/17 04:56 10/31/17 04:56 Most recent lab results Calcium 7.7 mg/dL (8.4-10.2) L 10/31/17 04:56 Phosphorus 7.00 mg/dL (2.5-4.5) H 10/31/17 04:56 Urine Creatinine 87.5 mg/dL (0.1-20.0) H 10/25/17 21:44 Urine Sodium 56 mmol/L 10/25/17 21:44 Urine Total Protein 868 mg/dL (5-11.8) H 10/25/17 21:44
[2017-10-31] MEDS: HEPARIN SUB-Q SCH ×2 (10:42→21:31)
--- NOTE | 2017-10-31 15:21 | Progress Note ---
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 Denies any chest pain, nausea and vomiting Hospitalist Physical - Physical exam Narrative exam: Constitutional: Well-nourished well-developed. In no distress Head: Normocephalic atraumatic Eyes: Pupils are equal round and reactive to light Nose: no septal deviation. Mouth: Moist mucous membranes. Neck: Supple no thyromegaly. No bruit. No JVD Heart: Regular rate and rhythm, S1-S2 abnormal. No rubs murmurs or gallop Lungs: Clear to auscultation bilaterally no rales or rhonchi Abdomen: Soft nontender both his upper extremities no edema orclubbing. Extremities: No edema no cyanosis and no clubbing. Neuro: Alert oriented -3 no focal sensory or motor deficit. Skin: multiple skin tatoes noted - Constitutional Vitals: Temp Pulse Resp BP Pulse Ox 97.7 F 78 18 159/89 99 10/31/17 11:30 10/31/17 10:00 10/31/17 11:30 10/31/17 11:30 10/31/17 10:00 General appearance: Present: no acute distress, well-nourished Results - Labs CBC & Chem 7: 10/31/17 16:27 10/31/17 04:56 Labs: Laboratory Last Values WBC 14.0 K/mm3 (4.5-11.0) H 10/31/17 04:56 RBC 3.21 M/mm3 (3.65-5.03) L 10/31/17 04:56 Hgb 9.8 gm/dl (11.8-15.2) L 10/31/17 04:56 Hct 28.1 % (35.5-45.6) L 10/31/17 04:56 MCV 87 fl (84-94) 10/31/17 04:56 MCH 30 pg (28-32) 10/31/17 04:56 MCHC 35 % (32-34) H 10/31/17 04:56 RDW 14.7 % (13.2-15.2) 10/31/17 04:56 Plt Count 148 K/mm3 (140-440) 10/31/17 04:56 Lymph % (Auto) 8.0 % (13.4-35.0) L 10/31/17 04:56 [place] % (Auto) 6.3 % (0.0-7.3) 10/31/17 04:56 Eos % (Auto) 0.0 % (0.0-4.3) 10/31/17 04:56 Baso % (Auto) 0.1 % (0.0-1.8) 10/31/17 04:56 Lymph # 1.1 K/mm3 (1.2-5.4) L 10/31/17 04:56 [place] # 0.9 K/mm3 (0.0-0.8) H 10/31/17 04:56 Eos # 0.0 K/mm3 (0.0-0.4) 10/31/17 04:56 Baso # 0.0 K/mm3 (0.0-0.1) 10/31/17 04:56 Add Manual Diff Complete 10/29/17 05:10 Total Counted 100 10/29/17 05:10 Seg Neutrophils % 85.6 % (40.0-70.0) H 10/31/17 04:56 Seg Neuts % (Manual) 90.0 % (40.0-70.0) H 10/29/17 05:10 Band Neutrophils % 3.0 % 10/29/17 05:10 Lymphocytes % (Manual) 6.0 % (13.4-35.0) L 10/29/17 05:10 Reactive Lymphs % (Man) 1.0 % 10/29/17 05:10 Monocytes % (Manual) 0 % (0.0-7.3) 10/29/17 05:10 Eosinophils % (Manual) 0 % (0.0-4.3) 10/29/17 05:10 Basophils % (Manual) 0 % (0.0-1.8) 10/29/17 05:10 Metamyelocytes % 0 % 10/29/17 05:10 Myelocytes % 0 % 10/29/17 05:10 Promyelocytes % 0 % 10/29/17 05:10 Blast Cells % 0 % 10/29/17 05:10 Nucleated RBC % Not Reportable 10/29/17 05:10 Seg Neutrophils # 11.9 K/mm3 (1.8-7.7) H 10/31/17 04:56 Seg Neutrophils # Man 10.9 K/mm3 (1.8-7.7) H 10/29/17 05:10 Band Neutrophils # 0.4 K/mm3 10/29/17 05:10 Lymphocytes # (Manual) 0.7 K/mm3 (1.2-5.4) L 10/29/17 05:10 Abs React Lymphs (Man) 0.1 K/mm3 10/29/17 05:10 Monocytes # (Manual) 0.0 K/mm3 (0.0-0.8) 10/29/17 05:10 Eosinophils # (Manual) 0.0 K/mm3 (0.0-0.4) 10/29/17 05:10 Basophils # (Manual) 0.0 K/mm3 (0.0-0.1) 10/29/17 05:10 Metamyelocytes # 0.0 K/mm3 10/29/17 05:10 Myelocytes # 0.0 K/mm3 10/29/17 05:10 Promyelocytes # 0.0 K/mm3 10/29/17 05:10 Blast Cells # 0.0 K/mm3 10/29/17 05:10 WBC Morphology Not Reportable 10/29/17 05:10 Hypersegmented Neuts Not Reportable 10/29/17 05:10 Hyposegmented Neuts Not Reportable 10/29/17 05:10 Hypogranular Neuts Not Reportable 10/29/17 05:10 Smudge Cells Not Reportable 10/29/17 05:10 Toxic Granulation Not Reportable 10/29/17 05:10 Toxic Vacuolation Not Reportable 10/29/17 05:10 Dohle Bodies Not Reportable 10/29/17 05:10 Pelger-Huet Anomaly Not Reportable 10/29/17 05:10 Kam Rods Not Reportable 10/29/17 05:10 Platelet Estimate Consistent w auto 10/29/17 05:10 Clumped Platelets Not Reportable 10/29/17 05:10 Plt Clumps, EDTA Not Reportable 10/29/17 05:10 Large Platelets Not Reportable 10/29/17 05:10 Giant Platelets Not Reportable 10/29/17 05:10 Platelet Satelliting Not Reportable 10/29/17 05:10 Plt Morphology Comment Not Reportable 10/29/17 05:10 RBC Morphology Not Reportable 10/29/17 05:10 Dimorphic RBCs Yes 10/29/17 05:10 Polychromasia Not Reportable 10/29/17 05:10 Hypochromasia Not Reportable 10/29/17 05:10 Poikilocytosis Not Reportable 10/29/17 05:10 Anisocytosis Not Reportable 10/29/17 05:10 Microcytosis Not Reportable 10/29/17 05:10 Macrocytosis Not Reportable 10/29/17 05:10 Spherocytes Not Reportable 10/29/17 05:10 Pappenheimer Bodies Not Reportable 10/29/17 05:10 Sickle Cells Not Reportable 10/29/17 05:10 Target Cells Not Reportable 10/29/17 05:10 Tear Drop Cells Not Reportable 10/29/17 05:10 Ovalocytes Not Reportable 10/29/17 05:10 Helmet Cells Not Reportable 10/29/17 05:10 [place] Bodies Not Reportable 10/29/17 05:10 [place] Rings Not Reportable 10/29/17 05:10 [place] Cells Not Reportable 10/29/17 05:10 Bite Cells Not Reportable 10/29/17 05:10 Crenated Cell Not Reportable 10/29/17 05:10 Elliptocytes Not Reportable 10/29/17 05:10 Acanthocytes (Spur) Not Reportable 10/29/17 05:10 Rouleaux Not Reportable 10/29/17 05:10 Hemoglobin C Crystals Not Reportable 10/29/17 05:10 Schistocytes Not Reportable 10/29/17 05:10 Malaria parasites Not Reportable 10/29/17 05:10 ESR 42 mm/Hr (0-20) 10/27/17 05:15 Percent Retic 0.89 % (0.78-2.58) 10/27/17 17:16 Nasir Bodies Not Reportable 10/29/17 05:10 Hem Pathologist Commnt No 10/29/17 05:10 PT 13.0 Sec. (12.2-14.9) 10/31/17 04:56 INR 0.94 (0.87-1.13) 10/31/17 04:56 APTT 30.9 Sec. (24.2-36.6) 10/25/17 15:28 Sodium 139 mmol/L (137-145) 10/31/17 04:56 Potassium 4.2 mmol/L (3.6-5.0) 10/31/17 04:56 Chloride 95.3 mmol/L (98-107) L 10/31/17 04:56 Carbon Dioxide 26 mmol/L (22-30) 10/31/17 04:56 Anion Gap 22 mmol/L 10/31/17 04:56 BUN 82 mg/dL (9-20) H 10/31/17 04:56 Creatinine 6.4 mg/dL (0.8-1.5) H 10/31/17 04:56 Estimated GFR 13 ml/min 10/31/17 04:56 BUN/Creatinine Ratio 13 % 10/31/17 04:56 Glucose 102 mg/dL (75-100) H 10/31/17 04:56 POC Glucose 117 (70-105) H 10/25/17 16:33 Hemoglobin A1c 6.9 % (4-6) H 10/25/17 14:37 Calcium 7.7 mg/dL (8.4-10.2) L 10/31/17 04:56 Phosphorus 7.00 mg/dL (2.5-4.5) H 10/31/17 04:56 Iron 63 ug/dL (49-181) 10/26/17 13:46 TIBC 144 mcg/dL (250-450) L 10/26/17 13:46 % Saturation 43.75 % 10/26/17 13:46 Transferrin 130 mg/dl (180-329) L 10/26/17 13:46 Ferritin 1014.0 ng/mL (13.0-400.0) H 10/26/17 13:46 Total Bilirubin < 0.20 mg/dL (0.1-1.2) 10/25/17 14:37 AST 15 units/L (5-40) 10/25/17 14:37 ALT 13 units/L (7-56) 10/25/17 14:37 Alkaline Phosphatase 73 units/L (35-129) 10/25/17 14:37 Lactate Dehydrogenase 245 units/L (91-180) H 10/27/17 01:51 Total Protein 6.6 g/dL (6.3-8.2) 10/25/17 14:37 Albumin 2.8 g/dL (3.9-5) L 10/25/17 14:37 Albumin/Globulin Ratio 0.7 % 10/25/17 14:37 Amylase 247 units/L (27-131) H 10/25/17 14:37 Lipase 152 units/L (13-60) H 10/25/17 14:37 Vitamin B12 761.2 pg/mL (211-911) 10/27/17 17:17 Folate > 20.00 ng/mL (7.3-26.0) 10/26/17 13:46 PTH Intact 516.1 pg/mL (15-65) H 10/28/17 08:07 Urine Color Yellow (Yellow) 10/25/17 21:44 Urine Turbidity Clear (Clear) 10/25/17 21:44 Urine pH 6.0 (5.0-7.0) 10/25/17 21:44 Ur Specific [place] 1.015 (1.003-1.030) 10/25/17 21:44 Urine Protein >500 mg/dL (Negative) 10/25/17 21:44 Urine Glucose (UA) Neg mg/dL (Negative) 10/25/17 21:44 Urine Ketones Neg mg/dL (Negative) 10/25/17 21:44 Urine Blood Neg (Negative) 10/25/17 21:44 Urine Nitrite Neg (Negative) 10/25/17 21:44 Urine Bilirubin Neg (Negative) 10/25/17 21:44 Urine Urobilinogen < 2.0 mg/dL (<2.0) 10/25/17 21:44 Ur Leukocyte Esterase Neg (Negative) 10/25/17 21:44 Urine WBC (Auto) 3.0 /HPF (0.0-6.0) 10/25/17 21:44 Urine RBC (Auto) 3.0 /HPF (0.0-6.0) 10/25/17 21:44 Urine Eosinophils 2% (None Seen) 10/25/17 21:44 Urine Creatinine 87.5 mg/dL (0.1-20.0) H 10/25/17 21:44 Protein/Creatinin Ratio 9.92 10/25/17 21:44 Urine Sodium 56 mmol/L 10/25/17 21:44 Urine Total Protein 868 mg/dL (5-11.8) H 10/25/17 21:44 Hep Bs Antigen Non-reactive (Negative) 10/25/17 16:31 Hepatitis C Antibody Non-reactive (NonReactive) 10/25/17 16:30 HIV 1&2 Antibody Rapid Non react (Non React) 10/25/17 16:22 HIV P24 Antigen Non react (Non React) 10/25/17 16:22 Schistocytes Smear Rare 10/27/17 17:16 Blood Type B POSITIVE 10/31/17 00:56 Antibody Screen Negative 10/31/17 00:56 Crossmatch See Detail 10/31/17 00:56
[2017-10-31] MEDS ORDERED: NACL 0.9 (PRIMING MACHINE ONLY DIALYSIS) MC ONE (16:08)
[2017-10-31] MEDS: PROCRIT SUB-Q SCH (16:24)
[2017-10-31 17:12] LABS: Hematocrit 32.4 % (35.5-45.6); Hemoglobin 11.2 gm/dl (11.8-15.2); Mean Corpuscular HGB Conc 35 % (32-34); Mean Corpuscular Hemoglobin 30 pg (28-32); Mean Corpuscular Volume 87 fl (84-94); Platelet Count 184 K/mm3 (140-440); Red Blood Count 3.71 M/mm3 (3.65-5.03); Red Cell Distribution Width 14.6 % (13.2-15.2)
[2017-10-31 17:22] LABS: White Blood Count 20.7 K/mm3 (4.5-11.0)
[2017-10-31] MEDS: PLAQUENIL PO SCH (17:49)
[2017-10-31] MEDS: NORVASC PO SCH (17:50)
[2017-10-31] MEDS: ROCALTROL PO SCH (17:50)
[2017-10-31] MEDS: DELTASONE PO SCH (17:50)
[2017-10-31] MEDS: THERAGRAN Tab PO SCH (17:50)
[2017-10-31] MEDS: TAPAZOLE PO SCH (17:50)
[2017-10-31 19:28] LABS: Basophils % (Manual) 0 % (0.0-1.8); Blastocytes % (Manual) 0 %; Eosinophils % (Manual) 0 % (0.0-4.3)
[2017-10-31 19:29] LABS: Anisocytosis 1+
[2017-10-31 19:30] LABS: Diff Status Complete; Ovalocytes Rare; Poikilocytosis Few; Target Cells Rare
[2017-10-31] MEDS: HEPARIN IV PRN (20:22)
[2017-10-31] MEDS: BENADRYL PO PRN (21:40)
[2017-10-31] MEDS: DILAUDID IV PRN (21:41)
[2017-11-01 01:02] LABS: Hematocrit 25.9 % (35.5-45.6); Hemoglobin 8.8 gm/dl (11.8-15.2); Mean Corpuscular HGB Conc 34 % (32-34); Mean Corpuscular Hemoglobin 30 pg (28-32); Mean Corpuscular Volume 88 fl (84-94); Platelet Count 138 K/mm3 (140-440); Red Blood Count 2.96 M/mm3 (3.65-5.03); Red Cell Distribution Width 14.7 % (13.2-15.2); White Blood Count 12.9 K/mm3 (4.5-11.0)
[2017-11-01] MEDS: CATAPRES PO SCH ×3 (02:00→19:03)
[2017-11-01 02:02] LABS: Basophils % (Manual) 0 % (0.0-1.8); Blastocytes % (Manual) 0 %; Diff Status Complete; Eosinophils % (Manual) 0 % (0.0-4.3); Total Cells Counted Percent 0
[2017-11-01 02:03] LABS: Platelet Estimate Consistent w Auto
[2017-11-01 06:09] LABS: Hemoglobin 8.7 gm/dl (11.8-15.2); Mean Corpuscular HGB Conc 33 % (32-34); Mean Corpuscular Hemoglobin 29 pg (28-32); Mean Corpuscular Volume 88 fl (84-94); Platelet Count 136 K/mm3 (140-440); Red Blood Count 2.97 M/mm3 (3.65-5.03); Red Cell Distribution Width 14.6 % (13.2-15.2); White Blood Count 10.9 K/mm3 (4.5-11.0)
[2017-11-01 06:30] LABS: Albumin 2.7 g/dL (3.9-5); Albumin/Globulin Ratio 1.1 %; Bilirubin,Total 0.2 mg/dL (0.1-1.2); Calcium 7.8 mg/dL (8.4-10.2); Potassium 4.7 mmol/L (3.6-5.0); Total Protein 5.2 g/dL (6.3-8.2)
[2017-11-01 06:43] LABS: Basophils % (Manual) 0 % (0.0-1.8); Blastocytes % (Manual) 0 %; Eosinophils % (Manual) 0 % (0.0-4.3)
[2017-11-01 06:44] LABS: Anisocytosis 1+; Diff Status Complete; Microcytosis Few; Platelet Estimate Consistent w Auto
[2017-11-01 09:15] LABS: Basophils % (Auto) 0.1 % (0.0-1.8); Hematocrit 27.8 % (35.5-45.6); Hemoglobin 9.5 gm/dl (11.8-15.2); Mean Corpuscular HGB Conc 34 % (32-34); Mean Corpuscular Hemoglobin 30 pg (28-32); Mean Corpuscular Volume 88 fl (84-94); Platelet Count 151 K/mm3 (140-440); Red Blood Count 3.16 M/mm3 (3.65-5.03); Red Cell Distribution Width 14.7 % (13.2-15.2); White Blood Count 13.1 K/mm3 (4.5-11.0)
--- NOTE | 2017-11-01 10:09 | Progress Note ---
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 Cr in the past was 3.5. Now with worsening renal failure. Could have FR[place] vs CKD progression -Initiated on IHD via fem VC. s/p HD yesterday, no HD today, Eval for HD daily. -YAMILET, ANCA, Anti-DsDNA, Complements, Anti GBM, Hep panel, HIV, Urine PCR ordered -Hep Panel, HIV -ve -Urine PCR shows nephrotic range proteinuria. UA did not have red cells. -Renal US shows CKD, no hydronephrosis. -3 day pulse of Solumedrol 1 gm daily IV started 10/26 - 10/28. Now on prednisone 60 mg daily. -s/p CT guided Renal bx yesterday. Will follow Path result. Strict bedrest, monitor CBC q8H, transfuse for Hg <8. 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 s/p 3 cycles of plasma exchange. -Transfusion PRN per primary and hemonc -[id number] antibody ordered. 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 Hyperphosphatemia: -Started renvella WMs Hyperkalemia: -Improved with HD. Low K diet. Essential Hypertension: -Titrate BP meds PRN to keep SBP <130, hydrazine started. -Avoid Salomon inh/ARBs SLE: -Can continue home meds -Per primary Juan Angulo MD Nephrology, Hypertension, Dialysis, Transplantation Phone no: [phone] Subjective Date of service: 11/01/17 Principal diagnosis: ARF/CKD Acute Hemolytic anemia Interval history: s/p Renal bx yesterday. Denies CP/SHOB. Urine yellow Objective - Exam Narrative Exam: [id number] HEENT: PERRLA Neck: No JVD Chest: CTAB CVS: RRR Abd: Soft/Nt/ND/BS+ Ext: No cce, Rt fem VC Psyche: Appropriate mood - Vital Signs Vital signs: Vital Signs - 12hr 10/31/17 11/01/17 11/01/17 23:44 02:00 04:24 Temperature 99.3 F 97.9 F Pulse Rate 73 90 63 Respiratory 18 16 Rate Blood Pressure 132/74 126/78 O2 Sat by Pulse 99 99 Oximetry 11/01/17 08:23 Temperature 97.4 F L Pulse Rate 62 Respiratory 20 Rate Blood Pressure 151/90 O2 Sat by Pulse 100 Oximetry - Lab 11/01/17 08:30 11/01/17 05:26 Most recent lab results Calcium 7.8 mg/dL (8.4-10.2) L 11/01/17 05:26 Phosphorus 7.00 mg/dL (2.5-4.5) H 10/31/17 04:56 Urine Creatinine 87.5 mg/dL (0.1-20.0) H 10/25/17 21:44 Urine Sodium 56 mmol/L 10/25/17 21:44 Urine Total Protein 868 mg/dL (5-11.8) H 10/25/17 21:44
[2017-11-01] MEDS: ROCALTROL PO SCH (11:03)
[2017-11-01] MEDS: PLAQUENIL PO SCH (11:03)
[2017-11-01] MEDS: THERAGRAN Tab PO SCH (11:03)
[2017-11-01] MEDS: DELTASONE PO SCH (11:03)
[2017-11-01] MEDS: NORVASC PO SCH (11:04)
[2017-11-01] MEDS: HEPARIN SUB-Q SCH ×2 (11:04→21:43)
[2017-11-01] MEDS: RENVELA PO SCH ×3 (11:04→16:00)
[2017-11-01] MEDS: TAPAZOLE PO SCH (11:04)
[2017-11-01] MEDS: ROXICODONE PO PRN (11:11)
--- NOTE | 2017-11-01 13:38 | Hem/Onc Progress Note ---
Assessment and Plan - Patient Problems (1) Anemia Current Visit: Yes Status: Acute Plan to address problem: Monitor. Due to CKD. Check CBC. Outpatient follow up encouraged. He agrees. Subjective Date of service: 11/01/17 Interval history: He feels well overall. No new complains. No bleeding. No confusion. Objective - Constitutional Vitals: Last Vital Signs Temp 97.4 F L 11/01/17 08:23 Pulse 58 L 11/01/17 10:00 Resp 20 11/01/17 08:23 BP 151/90 11/01/17 08:23 Pulse Ox 100 11/01/17 08:23 Pain Intensity (0-10): denies any pain - Neck Neck: supple - Respiratory Respiratory effort: Positive: normal Respiratory: bilateral: CTA - Cardiovascular Rhythm: regular - Labs Lab Results: Laboratory Results - last 24 hr 10/31/17 11/01/17 11/01/17 16:27 00:46 05:26 WBC 20.7 H 12.9 H 10.9 RBC 3.71 2.96 L 2.97 L Hgb 11.2 L 8.8 L 8.7 L Hct 32.4 L 25.9 L D 26.0 L MCV 87 88 88 MCH 30 30 29 MCHC 35 H 34 33 RDW 14.6 14.7 14.6 Plt Count 184 138 L 136 L Lymph % (Auto) [place] % (Auto) Eos % (Auto) Baso % (Auto) Lymph # [place] # Eos # Baso # Add Manual Diff Complete Complete Complete Total Counted 100 100 100 Seg Neutrophils % Floor Coverer Apprentice Floor Coverer Apprentice Seg Neuts % (Manual) 75.0 H 92.0 H 89.0 H Band Neutrophils % 0 1.0 1.0 Lymphocytes % (Manual) 15.0 4.0 L 8.0 L Reactive Lymphs % (Man) 0 0 0 Monocytes % (Manual) 5.0 0 1.0 Eosinophils % (Manual) 0 0 0 Basophils % (Manual) 0 0 0 Metamyelocytes % 1.0 0 0 Myelocytes % 4.0 3.0 1.0 Promyelocytes % 0 0 0 Blast Cells % 0 0 0 Nucleated RBC % Not Reportable Not Reportable Not Reportable Seg Neutrophils # Seg Neutrophils # Man 15.5 H 11.9 H 9.7 H Band Neutrophils # 0.0 0.1 0.1 Lymphocytes # (Manual) 3.1 0.5 L 0.9 L Abs React Lymphs (Man) 0.0 0.0 0.0 Monocytes # (Manual) 1.0 H 0.0 0.1 Eosinophils # (Manual) 0.0 0.0 0.0 Basophils # (Manual) 0.0 0.0 0.0 Metamyelocytes # 0.2 0.0 0.0 Myelocytes # 0.8 0.4 0.1 Promyelocytes # 0.0 0.0 0.0 Blast Cells # 0.0 0.0 0.0 WBC Morphology Not Reportable Not Reportable Not Reportable Hypersegmented Neuts Not Reportable Not Reportable Not Reportable Hyposegmented Neuts Not Reportable Not Reportable Not Reportable Hypogranular Neuts Not Reportable Not Reportable Not Reportable Smudge Cells Not Reportable Not Reportable Not Reportable Toxic Granulation Not Reportable Not Reportable Not Reportable Toxic Vacuolation Not Reportable Not Reportable Not Reportable [place] Bodies Not Reportable Not Reportable Not Reportable Pelger-Huet Anomaly Not Reportable Not Reportable Not Reportable Kam Rods Not Reportable Not Reportable Not Reportable Platelet Estimate Appears normal Consistent w auto Consistent w auto Clumped Platelets Not Reportable Not Reportable Not Reportable Plt Clumps, EDTA Not Reportable Not Reportable Not Reportable Large Platelets Not Reportable Not Reportable Not Reportable Giant Platelets Not Reportable Not Reportable Not Reportable Platelet Satelliting Not Reportable Not Reportable Not Reportable Plt Morphology Comment Not Reportable Not Reportable Not Reportable RBC Morphology Not Reportable Not Reportable Not Reportable Dimorphic RBCs Not Reportable Not Reportable Not Reportable Polychromasia Not Reportable Not Reportable Not Reportable Hypochromasia Not Reportable Not Reportable Not Reportable Poikilocytosis Few Not Reportable Not Reportable Anisocytosis 1+ Not Reportable 1+ Microcytosis Not Reportable Not Reportable Few Macrocytosis Not Reportable Not Reportable Not Reportable Spherocytes Not Reportable Not Reportable Not Reportable Pappenheimer Bodies Not Reportable Not Reportable Not Reportable Sickle Cells Not Reportable Not Reportable Not Reportable Target Cells Rare Not Reportable Not Reportable Tear Drop Cells Not Reportable Not Reportable Not Reportable Ovalocytes Rare Not Reportable Not Reportable Helmet Cells Not Reportable Not Reportable Not Reportable [place] Bodies Not Reportable Not Reportable Not Reportable [place] Rings Not Reportable Not Reportable Not Reportable [place] Cells Not Reportable Not Reportable Not Reportable Bite Cells Not Reportable Not Reportable Not Reportable Crenated Cell Not Reportable Not Reportable Not Reportable Elliptocytes Not Reportable Not Reportable Not Reportable Acanthocytes (Spur) Not Reportable Not Reportable Not Reportable Rouleaux Not Reportable Not Reportable Not Reportable Hemoglobin C Crystals Not Reportable Not Reportable Not Reportable Schistocytes Not Reportable Not Reportable Not Reportable Malaria parasites Not Reportable Not Reportable Not Reportable Nasir Bodies Not Reportable Not Reportable Not Reportable Hem Pathologist Commnt No No No Sodium Potassium Chloride Carbon Dioxide Anion Gap BUN Creatinine Estimated GFR BUN/Creatinine Ratio Glucose Calcium Total Bilirubin AST ALT Alkaline Phosphatase Lactate Dehydrogenase Total Protein Albumin Albumin/Globulin Ratio 11/01/17 11/01/17 05:26 08:30 WBC 13.1 H RBC 3.16 L Hgb 9.5 L Hct 27.8 L MCV 88 MCH 30 MCHC 34 RDW 14.7 Plt Count 151 Lymph % (Auto) 6.6 L [place] % (Auto) 4.9 Eos % (Auto) 0.0 Baso % (Auto) 0.1 Lymph # 0.9 L [place] # 0.6 Eos # 0.0 Baso # 0.0 Add Manual Diff Total Counted Seg Neutrophils % 88.4 H Seg Neuts % (Manual) Band Neutrophils % Lymphocytes % (Manual) Reactive Lymphs % (Man) Monocytes % (Manual) Eosinophils % (Manual) Basophils % (Manual) Metamyelocytes % Myelocytes % Promyelocytes % Blast Cells % Nucleated RBC % Seg Neutrophils # 11.6 H Seg Neutrophils # Man Band Neutrophils # Lymphocytes # (Manual) Abs React Lymphs (Man) Monocytes # (Manual) Eosinophils # (Manual) Basophils # (Manual) Metamyelocytes # Myelocytes # Promyelocytes # Blast Cells # WBC Morphology Hypersegmented Neuts Hyposegmented Neuts Hypogranular Neuts Smudge Cells Toxic Granulation Toxic Vacuolation Dohle Bodies Pelger-Huet Anomaly Kam Rods Platelet Estimate Clumped Platelets Plt Clumps, EDTA Large Platelets Giant Platelets Platelet Satelliting Plt Morphology Comment RBC Morphology Dimorphic RBCs Polychromasia Hypochromasia Poikilocytosis Anisocytosis Microcytosis Macrocytosis Spherocytes Pappenheimer Bodies Sickle Cells Target Cells Tear Drop Cells Ovalocytes Helmet Cells [place] Bodies [place] Rings [place] Cells Bite Cells Crenated Cell Elliptocytes Acanthocytes (Spur) Rouleaux Hemoglobin C Crystals Schistocytes Malaria parasites Nasir Bodies Hem Pathologist Commnt Sodium 142 Potassium 4.7 Chloride 101.0 Carbon Dioxide 29 Anion Gap 17 BUN 48 H Creatinine 5.0 H Estimated GFR 17 BUN/Creatinine Ratio 10 Glucose 133 H Calcium 7.8 L Total Bilirubin 0.20 AST 21 ALT 44 Alkaline Phosphatase 50 Lactate Dehydrogenase 237 H Total Protein 5.2 L Albumin 2.7 L Albumin/Globulin Ratio 1.1
[2017-11-01] MEDS: PERCOCET 5/325 PO PRN (16:00)
[2017-11-01 18:39] LABS: Hematocrit 26.3 % (35.5-45.6); Hemoglobin 8.9 gm/dl (11.8-15.2); Mean Corpuscular HGB Conc 34 % (32-34); Mean Corpuscular Hemoglobin 30 pg (28-32); Mean Corpuscular Volume 88 fl (84-94); Platelet Count 156 K/mm3 (140-440); Red Blood Count 2.99 M/mm3 (3.65-5.03); Red Cell Distribution Width 14.6 % (13.2-15.2)
[2017-11-01 19:24] LABS: Blastocytes % (Manual) 0 %
[2017-11-01 19:25] LABS: Basophils % (Manual) 0 % (0.0-1.8); Eosinophils % (Manual) 0 % (0.0-4.3); Platelet Estimate Consistent w Auto
[2017-11-01 19:26] LABS: Diff Status Complete; Elliptocytes Rare; Poikilocytosis Few
[2017-11-01] MEDS: DILAUDID IV PRN (21:43)
--- NOTE | 2017-11-01 22:36 | Progress Note ---
Assessment and Plan Assessment and plan: Acute renal failure superimposed on chronic kidney disease possible with progression to end-stage Likely secondary to hypertensive nephropathy and lupus nephritis Nephrology consulted Status post renal biopsy 10/31 Status post 3 day pulse of Solu-Medrol, now on prednisone 60 mg HD initiated through Vas-Cath Anemia TTP status post plasmapheresis per heme-oncology ? Hemolytic anemia vs anemia of chronic renal disease Transfuse for hemoglobin<8 Hyperparathyroidism Electrolyte abnormalities Hyperkalemia, hypocalcemia, hyperphosphatemia Improving with HD Monitoring Hyperthyroidism On methimazole Hypertension BP controlled now on amlodipine and clonidine Lupus On Plaquenil and corticosteroids DVT prophylaxis Heparin subcutaneous History Interval history: s/p renal biopsy, doing well, no pain Hospitalist Physical - Constitutional Vitals: Temp Pulse Resp BP Pulse Ox 97.5 F L 67 18 134/84 98 11/01/17 19:50 11/01/17 19:50 11/01/17 19:50 11/01/17 19:50 11/01/17 21:17 General appearance: Present: no acute distress - EENT Eyes: Present: PERRL, EOM intact - Neck Neck: Present: supple. Absent: enlarged thyroid, masses or JVD - Respiratory Respiratory effort: normal Respiratory: bilateral: CTA, negative: rhonchi, wheezing - Cardiovascular Rhythm: regular Heart Sounds: Present: S1 & S2. Absent: systolic murmur - Extremities Extremities: no ischemia - Abdominal General gastrointestinal: soft, non-tender, non-distended, normal bowel sounds - Psychiatric Psychiatric: cooperative - Neurologic Neurologic: CNII-XII intact, no focal deficits Results - Labs CBC & Chem 7: 11/03/17 08:12 11/02/17 12:13 Labs: Laboratory Last Values WBC 16.0 K/mm3 (4.5-11.0) H 11/01/17 18:06 RBC 2.99 M/mm3 (3.65-5.03) L 11/01/17 18:06 Hgb 8.9 gm/dl (11.8-15.2) L 11/01/17 18:06 Hct 26.3 % (35.5-45.6) L 11/01/17 18:06 MCV 88 fl (84-94) 11/01/17 18:06 MCH 30 pg (28-32) 11/01/17 18:06 MCHC 34 % (32-34) 11/01/17 18:06 RDW 14.6 % (13.2-15.2) 11/01/17 18:06 Plt Count 156 K/mm3 (140-440) 11/01/17 18:06 Lymph % (Auto) 6.6 % (13.4-35.0) L 11/01/17 08:30 Mobile % (Auto) 4.9 % (0.0-7.3) 11/01/17 08:30 Eos % (Auto) 0.0 % (0.0-4.3) 11/01/17 08:30 Baso % (Auto) 0.1 % (0.0-1.8) 11/01/17 08:30 Lymph # 0.9 K/mm3 (1.2-5.4) L 11/01/17 08:30 Mobile # 0.6 K/mm3 (0.0-0.8) 11/01/17 08:30 Eos # 0.0 K/mm3 (0.0-0.4) 11/01/17 08:30 Baso # 0.0 K/mm3 (0.0-0.1) 11/01/17 08:30 Add Manual Diff Complete 11/01/17 18:06 Total Counted 100 11/01/17 18:06 Seg Neutrophils % Rubber Splicer 11/01/17 18:06 Seg Neuts % (Manual) 95.0 % (40.0-70.0) H 11/01/17 18:06 Band Neutrophils % 0 % 11/01/17 18:06 Lymphocytes % (Manual) 3.0 % (13.4-35.0) L 11/01/17 18:06 Reactive Lymphs % (Man) 0 % 11/01/17 18:06 Monocytes % (Manual) 2.0 % (0.0-7.3) 11/01/17 18:06 Eosinophils % (Manual) 0 % (0.0-4.3) 11/01/17 18:06 Basophils % (Manual) 0 % (0.0-1.8) 11/01/17 18:06 Metamyelocytes % 0 % 11/01/17 18:06 Myelocytes % 0 % 11/01/17 18:06 Promyelocytes % 0 % 11/01/17 18:06 Blast Cells % 0 % 11/01/17 18:06 Nucleated RBC % Not Reportable 11/01/17 18:06 Seg Neutrophils # 11.6 K/mm3 (1.8-7.7) H 11/01/17 08:30 Seg Neutrophils # Man 15.2 K/mm3 (1.8-7.7) H 11/01/17 18:06 Band Neutrophils # 0.0 K/mm3 11/01/17 18:06 Lymphocytes # (Manual) 0.5 K/mm3 (1.2-5.4) L 11/01/17 18:06 Abs React Lymphs (Man) 0.0 K/mm3 11/01/17 18:06 Monocytes # (Manual) 0.3 K/mm3 (0.0-0.8) 11/01/17 18:06 Eosinophils # (Manual) 0.0 K/mm3 (0.0-0.4) 11/01/17 18:06 Basophils # (Manual) 0.0 K/mm3 (0.0-0.1) 11/01/17 18:06 Metamyelocytes # 0.0 K/mm3 11/01/17 18:06 Myelocytes # 0.0 K/mm3 11/01/17 18:06 Promyelocytes # 0.0 K/mm3 11/01/17 18:06 Blast Cells # 0.0 K/mm3 11/01/17 18:06 WBC Morphology Not Reportable 11/01/17 18:06 Hypersegmented Neuts Not Reportable 11/01/17 18:06 Hyposegmented Neuts Not Reportable 11/01/17 18:06 Hypogranular Neuts Not Reportable 11/01/17 18:06 Smudge Cells Not Reportable 11/01/17 18:06 Toxic Granulation Not Reportable 11/01/17 18:06 Toxic Vacuolation Not Reportable 11/01/17 18:06 Dohle Bodies Not Reportable 11/01/17 18:06 Pelger-Huet Anomaly Not Reportable 11/01/17 18:06 Kam Rods Not Reportable 11/01/17 18:06 Platelet Estimate Consistent w auto 11/01/17 18:06 Clumped Platelets Not Reportable 11/01/17 18:06 Plt Clumps, EDTA Not Reportable 11/01/17 18:06 Large Platelets Not Reportable 11/01/17 18:06 Giant Platelets Not Reportable 11/01/17 18:06 Platelet Satelliting Not Reportable 11/01/17 18:06 Plt Morphology Comment Not Reportable 11/01/17 18:06 RBC Morphology Not Reportable 11/01/17 18:06 Dimorphic RBCs Not Reportable 11/01/17 18:06 Polychromasia Not Reportable 11/01/17 18:06 Hypochromasia Not Reportable 11/01/17 18:06 Poikilocytosis Few 11/01/17 18:06 Anisocytosis Not Reportable 11/01/17 18:06 Microcytosis Not Reportable 11/01/17 18:06 Macrocytosis Not Reportable 11/01/17 18:06 Spherocytes Not Reportable 11/01/17 18:06 Pappenheimer Bodies Not Reportable 11/01/17 18:06 Sickle Cells Not Reportable 11/01/17 18:06 Target Cells Not Reportable 11/01/17 18:06 Tear Drop Cells Not Reportable 11/01/17 18:06 Ovalocytes Not Reportable 11/01/17 18:06 Helmet Cells Not Reportable 11/01/17 18:06 [place] Bodies Not Reportable 11/01/17 18:06 [place] Rings Not Reportable 11/01/17 18:06 [place] Cells Not Reportable 11/01/17 18:06 Bite Cells Not Reportable 11/01/17 18:06 Crenated Cell Not Reportable 11/01/17 18:06 Elliptocytes Rare 11/01/17 18:06 Acanthocytes (Spur) Not Reportable 11/01/17 18:06 Rouleaux Not Reportable 11/01/17 18:06 Hemoglobin C Crystals Not Reportable 11/01/17 18:06 Schistocytes Not Reportable 11/01/17 18:06 Malaria parasites Not Reportable 11/01/17 18:06 ESR 42 mm/Hr (0-20) 10/27/17 05:15 Percent Retic 0.89 % (0.78-2.58) 10/27/17 17:16 Nasir Bodies Not Reportable 11/01/17 18:06 Hem Pathologist Commnt No 11/01/17 18:06 PT 13.0 Sec. (12.2-14.9) 10/31/17 04:56 INR 0.94 (0.87-1.13) 10/31/17 04:56 APTT 30.9 Sec. (24.2-36.6) 10/25/17 15:28 Sodium 142 mmol/L (137-145) 11/01/17 05:26 Potassium 4.7 mmol/L (3.6-5.0) 11/01/17 05:26 Chloride 101.0 mmol/L (98-107) 11/01/17 05:26 Carbon Dioxide 29 mmol/L (22-30) 11/01/17 05:26 Anion Gap 17 mmol/L 11/01/17 05:26 BUN 48 mg/dL (9-20) H 11/01/17 05:26 Creatinine 5.0 mg/dL (0.8-1.5) H 11/01/17 05:26 Estimated GFR 17 ml/min 11/01/17 05:26 BUN/Creatinine Ratio 10 % 11/01/17 05:26 Glucose 133 mg/dL (75-100) H 11/01/17 05:26 POC Glucose 117 (70-105) H 10/25/17 16:33 Hemoglobin A1c 6.9 % (4-6) H 10/25/17 14:37 Calcium 7.8 mg/dL (8.4-10.2) L 11/01/17 05:26 Phosphorus 7.00 mg/dL (2.5-4.5) H 10/31/17 04:56 Iron 63 ug/dL (49-181) 10/26/17 13:46 TIBC 144 mcg/dL (250-450) L 10/26/17 13:46 % Saturation 43.75 % 10/26/17 13:46 Transferrin 130 mg/dl (180-329) L 10/26/17 13:46 Ferritin 1014.0 ng/mL (13.0-400.0) H 10/26/17 13:46 Total Bilirubin 0.20 mg/dL (0.1-1.2) 11/01/17 05:26 AST 21 units/L (5-40) 11/01/17 05:26 ALT 44 units/L (7-56) 11/01/17 05:26 Alkaline Phosphatase 50 units/L (35-129) 11/01/17 05:26 Lactate Dehydrogenase 237 units/L (91-180) H 11/01/17 05:26 Total Protein 5.2 g/dL (6.3-8.2) L 11/01/17 05:26 Albumin 2.7 g/dL (3.9-5) L 11/01/17 05:26 Albumin/Globulin Ratio 1.1 % 11/01/17 05:26 Amylase 247 units/L (27-131) H 10/25/17 14:37 Lipase 152 units/L (13-60) H 10/25/17 14:37 Vitamin B12 761.2 pg/mL (211-911) 10/27/17 17:17 Folate > 20.00 ng/mL (7.3-26.0) 10/26/17 13:46 PTH Intact 516.1 pg/mL (15-65) H 10/28/17 08:07 Urine Color Yellow (Yellow) 10/25/17 21:44 Urine Turbidity Clear (Clear) 10/25/17 21:44 Urine pH 6.0 (5.0-7.0) 10/25/17 21:44 Ur Specific [place] 1.015 (1.003-1.030) 10/25/17 21:44 Urine Protein >500 mg/dL (Negative) 10/25/17 21:44 Urine Glucose (UA) Neg mg/dL (Negative) 10/25/17 21:44 Urine Ketones Neg mg/dL (Negative) 10/25/17 21:44 Urine Blood Neg (Negative) 10/25/17 21:44 Urine Nitrite Neg (Negative) 10/25/17 21:44 Urine Bilirubin Neg (Negative) 10/25/17 21:44 Urine Urobilinogen < 2.0 mg/dL (<2.0) 10/25/17 21:44 Ur Leukocyte Esterase Neg (Negative) 10/25/17 21:44 Urine WBC (Auto) 3.0 /HPF (0.0-6.0) 10/25/17 21:44 Urine RBC (Auto) 3.0 /HPF (0.0-6.0) 10/25/17 21:44 Urine Eosinophils 2% (None Seen) 10/25/17 21:44 Urine Creatinine 87.5 mg/dL (0.1-20.0) H 10/25/17 21:44 Protein/Creatinin Ratio 9.92 10/25/17 21:44 Urine Sodium 56 mmol/L 10/25/17 21:44 Urine Total Protein 868 mg/dL (5-11.8) H 10/25/17 21:44 Hep Bs Antigen Non-reactive (Negative) 10/25/17 16:31 Hepatitis C Antibody Non-reactive (NonReactive) 10/25/17 16:30 HIV 1&2 Antibody Rapid Non react (Non React) 10/25/17 16:22 HIV P24 Antigen Non react (Non React) 10/25/17 16:22 Schistocytes Smear Rare 10/27/17 17:16 Blood Type B POSITIVE 10/31/17 00:56 Antibody Screen Negative 10/31/17 00:56 Crossmatch See Detail 10/31/17 00:56
[2017-11-02 01:05] LABS: Hematocrit 26.3 % (35.5-45.6); Hemoglobin 8.8 gm/dl (11.8-15.2); Mean Corpuscular HGB Conc 34 % (32-34); Mean Corpuscular Hemoglobin 30 pg (28-32); Mean Corpuscular Volume 89 fl (84-94); Platelet Count 158 K/mm3 (140-440); Red Blood Count 2.97 M/mm3 (3.65-5.03); Red Cell Distribution Width 14.5 % (13.2-15.2)
[2017-11-02 02:23] LABS: Basophils % (Manual) 0 % (0.0-1.8); Blastocytes % (Manual) 0 %; Eosinophils % (Manual) 0 % (0.0-4.3)
[2017-11-02 02:25] LABS: Anisocytosis 1+; Diff Status Complete; Platelet Estimate Consistent w Auto
[2017-11-02] MEDS: BENADRYL PO PRN (02:31)
[2017-11-02] MEDS: ROXICODONE PO PRN (02:32)
[2017-11-02] MEDS: CATAPRES PO SCH ×2 (02:33→09:34)
[2017-11-02] MEDS: PERCOCET 5/325 PO PRN ×2 (02:33→09:49)
[2017-11-02] MEDS: HEPARIN SUB-Q SCH ×2 (09:28→21:46)
[2017-11-02] MEDS: PLAQUENIL PO SCH (09:29)
[2017-11-02] MEDS: RENVELA PO SCH ×2 (09:29→13:57)
[2017-11-02] MEDS: NORVASC PO SCH (09:29)
[2017-11-02] MEDS: TAPAZOLE PO SCH (09:29)
[2017-11-02] MEDS: THERAGRAN Tab PO SCH (09:29)
[2017-11-02] MEDS: DELTASONE PO SCH (09:29)
[2017-11-02] MEDS: ROCALTROL PO SCH (09:29)
--- NOTE | 2017-11-02 10:15 | Progress Note ---
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 Cr in the past was 3.5. Now with worsening renal failure. Could have FRANKLYN vs CKD progression -Initiated on IHD via fem VC. s/p HD Tuesday, BUN/Cr trending up. HD today. -YAMILET, ANCA, Anti-DsDNA, Complements, Anti GBM, Hep panel, HIV, Urine PCR ordered -Hep Panel, HIV -ve -Urine PCR shows nephrotic range proteinuria. UA did not have red cells. -Renal US shows CKD, no hydronephrosis. -3 day pulse of Solumedrol 1 gm daily IV started 10/26 - 10/28. Now on prednisone 60 mg daily. -s/p CT guided Renal bx Tuesday. Spoke to Path today, they said pathologist will call with prelim results. -if labs today suggest no renal recovery, then will need Vascular Surgery to put in IJ Tunnel dialysis catheter at which point the fem VC can be removed and will need CM to place pt at [facility]. Pt should remain inpatient until then. 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 s/p 3 cycles of plasma exchange. -Transfusion PRN per primary and hemonc -[id number] antibody ordered. 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 Hyperphosphatemia: -Started renvella WMs Hyperkalemia: -Improved with HD. Low K diet. Essential Hypertension: -Titrate BP meds PRN to keep SBP <130, hydrazine started. -Avoid Salomon inh/ARBs SLE: -Can continue home meds -Per primary Plan d/w bedside RN. Juan Angulo MD Nephrology, Hypertension, Dialysis, Transplantation Phone no: [phone] Subjective Date of service: 11/02/17 Principal diagnosis: ARF/CKD Acute Hemolytic anemia Interval history: s/p Renal bx on tuesday. Making urine but less. Last HD was on Tuesday. Objective - Exam Narrative Exam: GE:AAOX3 HEENT: PERRLA Neck: No JVD Chest: CTAB CVS: RRR Abd: Soft/Nt/ND/BS+ Ext: No cce, Rt fem VC Psyche: Appropriate mood - Vital Signs Vital signs: Vital Signs - 12hr 11/01/17 11/02/17 11/02/17 23:56 05:27 06:58 Temperature 97.6 F 97.5 F L Pulse Rate 63 60 Respiratory 18 16 Rate Blood Pressure 147/89 140/85 Blood Pressure 140/85 [Right] O2 Sat by Pulse 97 Oximetry 11/02/17 11/02/17 11/02/17 07:54 09:29 09:34 Temperature 97.5 F L Pulse Rate 55 L 55 L 55 L Respiratory 18 Rate Blood Pressure 145/86 145/86 145/86 Blood Pressure [Right] O2 Sat by Pulse 99 Oximetry - Lab 11/02/17 12:13 11/02/17 12:13 Most recent lab results Calcium 7.8 mg/dL (8.4-10.2) L 11/01/17 05:26 Phosphorus 7.00 mg/dL (2.5-4.5) H 10/31/17 04:56 Urine Creatinine 87.5 mg/dL (0.1-20.0) H 10/25/17 21:44 Urine Sodium 56 mmol/L 10/25/17 21:44 Urine Total Protein 868 mg/dL (5-11.8) H 10/25/17 21:44
--- NOTE | 2017-11-02 12:27 | Discharge Summary ---
Providers - Providers Date of Admission: 10/25/17 20:26 Date of discharge: 11/02/17 Attending physician: KAVEH GARCIA 10/25/17 Consult to Case Management [CONS] Routine Services Needed at Discharge: Home Health Services Basket Operator Notified:: THRASHER FEEDER 10/25/17 16:26 Consult to Physician [CONS] Stat Consulting Provider: MATEO MICHAELS Reason For Exam: vascular access Place consult to:: phone Notified:: y 10/25/17 20:35 Consult to Physician [CONS] Routine Consulting Provider: ANN JEREZ Reason For Exam: ESRD Place consult to:: Notified:: DR. JEREZ Phone number called:: [phone] Was contact made?: Yes If yes, spoke with:: DR. RAE Time called:: 08:45 Comment:: CONSULT COMPLETED - PAT 10/26/17 10:02 Consult to Physician [CONS] Routine Consulting Provider: EFRAÍN BISWAS Reason For Exam: evaluate for TTP/HUS, schistocytes on smear Place consult to:: DR. BISWAS Notified:: DR. BISWAS Was contact made?: Yes If yes, spoke with:: Office Comment:: DOCTOR TO DOCTOR Primary care physician: RADIOLOGY PHYSICIAN ASSISTANT Hospitalization Reason for admission: nausea and vomiting Condition: Stable Hospital course: 31 years old -British male with autoimmune disorders - lupus, hyperthyroidism, TTP, HTN and CKD, admitted for worsening nausea and vomiting and found to be in renal failure Acute renal failure superimposed on chronic kidney disease possible with progression to end-stage Likely secondary to hypertensive nephropathy and lupus nephritis Nephrology consulted Status post renal biopsy 10/31 Status post 3 day pulse of Solu-Medrol, now on prednisone 60 mg HD initiated through Vas-Cath Anemia TTP status post plasmapheresis per heme-oncology ? Hemolytic anemia vs anemia of chronic renal disease Transfuse for hemoglobin<8 Hyperparathyroidism Electrolyte abnormalities Hyperkalemia, hypocalcemia, hyperphosphatemia Improving with HD Monitoring Hyperthyroidism On methimazole Hypertension BP controlled now on amlodipine and clonidine Lupus On Plaquenil and corticosteroids DVT prophylaxis Heparin subcutaneous Disposition: DC-01 TO HOME OR SELFCARE Time spent for discharge: 45 min Core Measure Documentation - Palliative Care Palliative Care/ Comfort Measures: Not Applicable - Core Measures Any of the following diagnoses?: none Exam - Physical Exam Narrative exam: Seen and examined: - Constitutional Vitals: Temp Pulse Resp BP Pulse Ox 97.5 F L 55 L 18 145/86 99 11/02/17 07:54 11/02/17 09:34 11/02/17 07:54 11/02/17 09:34 11/02/17 10:00 General appearance: Present: no acute distress - EENT Eyes: Present: PERRL, EOM intact - Neck Neck: Present: supple. Absent: enlarged thyroid, masses or JVD - Respiratory Respiratory effort: normal Respiratory: bilateral: CTA, negative: rhonchi, wheezing - Cardiovascular Rhythm: regular Heart Sounds: Present: S1 & S2. Absent: systolic murmur - Extremities Extremities: no ischemia - Abdominal General gastrointestinal: Present: soft, non-tender, non-distended, normal bowel sounds - Psychiatric Psychiatric: cooperative - Neurologic Neurologic: CNII-XII intact, no focal deficits Plan Activity: advance as tolerated Diet: low cholesterol, low salt, renal Additional Instructions: Follow up with your bolt sawyer Follow up with: PRIMARY MD SRIKANTH [Primary Care Provider] - 3-5 Days FRACISCO DEL REAL MD [Staff Physician] - 7 Days EFRAÍN BISWAS MD [Staff Physician] - 7 Days Prescriptions: amLODIPine [Norvasc] 10 mg PO DAILY #30 tablet Calcitriol [Rocaltrol] 0.5 mcg PO QDAY #30 capsule cloNIDine [Catapres] 0.1 mg PO Q8H #90 tablet Hydroxychloroquine [Plaquenil] 400 mg PO QDAY #60 tablet Methimazole [Tapazole] 5 mg PO QDAY #30 tablet oxyCODONE /ACETAMINOPHEN [Percocet 5/325 mg] 1 tab PO Q6H PRN #12 tablet PRN Reason: Pain, Moderate (4-6) predniSONE [Deltasone] 60 mg PO QDAY #60 tablet Sevelamer Carbonate [Renvela] 1,600 mg PO AC #120 tablet
[2017-11-02 12:58] LABS: Hematocrit 27.9 % (35.5-45.6); Hemoglobin 9.2 gm/dl (11.8-15.2); Mean Corpuscular HGB Conc 33 % (32-34); Mean Corpuscular Hemoglobin 29 pg (28-32); Mean Corpuscular Volume 88 fl (84-94); Platelet Count 173 K/mm3 (140-440); Red Blood Count 3.17 M/mm3 (3.65-5.03); Red Cell Distribution Width 14.8 % (13.2-15.2)
[2017-11-02 13:04] LABS: White Blood Count 24.2 K/mm3 (4.5-11.0)
[2017-11-02] MEDS ORDERED: NACL 0.9% 100 ML IV PRN (13:47)
[2017-11-02 14:06] LABS: Anisocytosis 1+; Basophils % (Manual) 0 % (0.0-1.8); Blastocytes % (Manual) 0 %; Diff Status Complete; Eosinophils % (Manual) 0 % (0.0-4.3)
[2017-11-02] MEDS ORDERED: NACL 0.9 (PRIMING MACHINE ONLY DIALYSIS) MC ONE (18:46)
[2017-11-02] MEDS: PROCRIT SUB-Q SCH (19:00)
--- NOTE | 2017-11-02 19:05 | Event Note ---
Date: 11/02/17 Discussed with patient's engraver picture and discharge held as he may have renal failure progressed to end-stage will require permanent dialysis; awaiting renal biopsy results and based on dose possible permacath placement/AVG creation, outpatient HD setup.
[2017-11-02] MEDS: HEPARIN IV PRN (19:27)
[2017-11-02 20:50] LABS: Hematocrit 26.6 % (35.5-45.6); Hemoglobin 8.9 gm/dl (11.8-15.2); Mean Corpuscular HGB Conc 34 % (32-34); Mean Corpuscular Hemoglobin 29 pg (28-32); Mean Corpuscular Volume 88 fl (84-94); Platelet Count 175 K/mm3 (140-440); Red Blood Count 3.04 M/mm3 (3.65-5.03); Red Cell Distribution Width 14.6 % (13.2-15.2); White Blood Count 20.7 K/mm3 (4.5-11.0)
[2017-11-02 21:31] LABS: Basophils % (Manual) 0 % (0.0-1.8); Blastocytes % (Manual) 0 %; Eosinophils % (Manual) 0 % (0.0-4.3); Total Cells Counted Percent 0
[2017-11-02 21:32] LABS: Anisocytosis 1+; Diff Status Complete
[2017-11-02] MEDS: DILAUDID IV PRN (21:47)
[2017-11-03 01:05] LABS: Hematocrit 25.2 % (35.5-45.6); Hemoglobin 8.5 gm/dl (11.8-15.2); Mean Corpuscular HGB Conc 34 % (32-34); Mean Corpuscular Hemoglobin 30 pg (28-32); Mean Corpuscular Volume 88 fl (84-94); Platelet Count 177 K/mm3 (140-440); Red Blood Count 2.88 M/mm3 (3.65-5.03); Red Cell Distribution Width 14.5 % (13.2-15.2)
[2017-11-03 01:06] LABS: White Blood Count 20.6 K/mm3 (4.5-11.0)
[2017-11-03] MEDS: CATAPRES PO SCH ×4 (01:26→22:15)
[2017-11-03 04:04] LABS: Anisocytosis 1+; Basophils % (Manual) 0 % (0.0-1.8); Blastocytes % (Manual) 0 %; Eosinophils % (Manual) 0 % (0.0-4.3); Large Platelets Few; Schistocytes Few
[2017-11-03 04:05] LABS: Diff Status Complete
[2017-11-03 08:52] LABS: Hematocrit 25.1 % (35.5-45.6); Hemoglobin 8.5 gm/dl (11.8-15.2); Mean Corpuscular HGB Conc 34 % (32-34); Mean Corpuscular Hemoglobin 30 pg (28-32); Mean Corpuscular Volume 89 fl (84-94); Platelet Count 177 K/mm3 (140-440); Red Blood Count 2.83 M/mm3 (3.65-5.03); Red Cell Distribution Width 14.8 % (13.2-15.2)
[2017-11-03 09:12] LABS: White Blood Count 20.2 K/mm3 (4.5-11.0)
[2017-11-03] MEDS: ROXICODONE PO PRN ×3 (09:29→23:43)
[2017-11-03] MEDS: PERCOCET 5/325 PO PRN ×3 (09:29→23:42)
[2017-11-03] MEDS: RENVELA PO SCH ×4 (09:30→22:00)
[2017-11-03] MEDS: ROCALTROL PO SCH (09:30)
[2017-11-03] MEDS: TAPAZOLE PO SCH (09:30)
[2017-11-03] MEDS: NORVASC PO SCH (09:30)
[2017-11-03] MEDS: DELTASONE PO SCH (09:31)
[2017-11-03] MEDS: PLAQUENIL PO SCH (09:31)
[2017-11-03] MEDS: THERAGRAN Tab PO SCH (09:31)
[2017-11-03] MEDS: HEPARIN SUB-Q SCH ×2 (09:32→22:17)
--- NOTE | 2017-11-03 10:50 | Progress Note ---
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 Cr in the past was 3.5. Now with worsening renal failure. Could have FRANKLYN vs CKD progression. -Initiated on IHD via fem VC. s/p HD yesterday, no HD today, Eval for HD daily. Fem VC being switched to [facility] since has been on HD for a while. -YAMILET, ANCA, Anti-DsDNA, Complements, Anti GBM, Hep panel, HIV, Urine PCR ordered -Hep Panel, HIV -ve. ANCA/Anti GBM -ve as well. -Urine PCR shows nephrotic range proteinuria. UA did not have red cells. Repeat UA ordered. -Renal US shows CKD, no hydronephrosis. -3 day pulse of Solumedrol 1 gm daily IV started 10/26 - 10/28. Now on prednisone 60 mg daily. -s/p CT guided Renal bx Tuesday. Spoke to Pathology Dr Tapia yesterday about prelim results. Per him bx had 16 glomeruli and out of the 16 around 30% showed chronic fibrotic changes. 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 -Given pt's history of non compliance in the past he would not be a good candidate of cytoxan given he may not f/u outpatient. -He may benefit from Rituxan. Pt will need to see Rheumatology for it. There is not Rheum at [facility] so pt will benifit from being transfered to [facility] where he has gotten his care in the past as well. 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 s/p 3 cycles of plasma exchange. -Transfusion PRN per primary and hemonc -[id number] antibody ordered. 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 Hyperphosphatemia: -Started renvella WMs Hyperkalemia: -Improved with HD. Low K diet. Essential Hypertension: -Titrate BP meds PRN to keep SBP <130, hydrazine started. -Avoid Salomon inh/ARBs SLE: -Can continue home meds -Per primary Plan d/w bedside RN and Dr Swift. Juan Angulo MD Nephrology, Hypertension, Dialysis, Transplantation Phone no: [phone] Subjective Date of service: 11/03/17 Principal diagnosis: ARF/CKD Acute Hemolytic anemia Interval history: s/p Renal bx on tuesday. s/p HD yesterday. Denies CP/SHOB. Objective - Exam Narrative Exam: GE:AAOX3 HEENT: PERRLA Neck: No JVD Chest: CTAB CVS: RRR Abd: Soft/Nt/ND/BS+ Ext: No cce, Rt fem VC Psyche: Appropriate mood - Vital Signs Vital signs: Vital Signs - 12hr 11/02/17 11/03/17 11/03/17 23:56 01:26 04:36 Temperature 98.3 F 98.3 F Pulse Rate 64 67 61 Respiratory 18 18 Rate Blood Pressure 149/94 136/88 142/80 Blood Pressure [Right] O2 Sat by Pulse 99 99 Oximetry 11/03/17 11/03/17 11/03/17 07:33 09:07 09:30 Temperature 98.8 F 98.8 F Pulse Rate 67 66 67 Respiratory 18 18 Rate Blood Pressure 140/93 160/87 Blood Pressure 140/93 [Right] O2 Sat by Pulse 99 100 Oximetry - Lab 11/03/17 08:12 11/03/17 11:44 Most recent lab results Calcium 8.0 mg/dL (8.4-10.2) L 11/02/17 12:13 Phosphorus 7.00 mg/dL (2.5-4.5) H 10/31/17 04:56 Urine Creatinine 87.5 mg/dL (0.1-20.0) H 10/25/17 21:44 Urine Sodium 56 mmol/L 10/25/17 21:44 Urine Total Protein 868 mg/dL (5-11.8) H 10/25/17 21:44
[2017-11-03 11:19] LABS: Basophils % (Manual) 0 % (0.0-1.8); Blastocytes % (Manual) 0 %; Eosinophils % (Manual) 0 % (0.0-4.3); Polychromasia Few
[2017-11-03 11:20] LABS: Anisocytosis 1+; Diff Status Complete
[2017-11-03 12:27] LABS: Calcium 7.9 mg/dL (8.4-10.2); Chloride 99.7 mmol/L (98-107)
--- NOTE | 2017-11-03 13:42 | Hem/Onc Progress Note ---
Assessment and Plan - Patient Problems (1) Anemia Current Visit: Yes Status: Acute Plan to address problem: Await kidney biopsy. Outpatient follow up Subjective Date of service: 11/03/17 Interval history: He feels well overall. Feels ready to go home. Objective - Constitutional Vitals: Last Vital Signs Temp 98.3 F 11/03/17 13:14 Pulse 71 11/03/17 13:14 Resp 20 11/03/17 13:14 BP 130/77 11/03/17 13:14 Pulse Ox 100 11/03/17 13:14 General appearance: no acute distress - Respiratory Respiratory effort: Positive: normal, labored Respiratory: negative: CTA - Cardiovascular Rhythm: regular Heart Sounds: Present: S1 & S2 - Labs Lab Results: Laboratory Results - last 24 hr 10/25/17 10/25/17 10/31/17 16:22 16:22 00:56 WBC RBC Hgb Hct MCV MCH MCHC RDW Plt Count Add Manual Diff Total Counted Seg Neutrophils % Seg Neuts % (Manual) Band Neutrophils % Lymphocytes % (Manual) Reactive Lymphs % (Man) Monocytes % (Manual) Eosinophils % (Manual) Basophils % (Manual) Metamyelocytes % Myelocytes % Promyelocytes % Blast Cells % Nucleated RBC % Seg Neutrophils # Man Band Neutrophils # Lymphocytes # (Manual) Abs React Lymphs (Man) Monocytes # (Manual) Eosinophils # (Manual) Basophils # (Manual) Metamyelocytes # Myelocytes # Promyelocytes # Blast Cells # WBC Morphology Hypersegmented Neuts Hyposegmented Neuts Hypogranular Neuts Smudge Cells Toxic Granulation Toxic Vacuolation Dohle Bodies Pelger-Huet Anomaly Kam Rods Platelet Estimate Clumped Platelets Plt Clumps, EDTA Large Platelets Giant Platelets Platelet Satelliting Plt Morphology Comment RBC Morphology Dimorphic RBCs Polychromasia Hypochromasia Poikilocytosis Anisocytosis Microcytosis Macrocytosis Spherocytes Pappenheimer Bodies Sickle Cells Target Cells Tear Drop Cells Ovalocytes Helmet Cells Stanley-Provencal Bodies [place] Rings [place] Cells Bite Cells Crenated Cell Elliptocytes Acanthocytes (Spur) Rouleaux Hemoglobin C Crystals Schistocytes Malaria parasites Nasir Bodies Hem Pathologist Commnt Sodium Potassium Chloride Carbon Dioxide Anion Gap BUN Creatinine Estimated GFR BUN/Creatinine Ratio Glucose Calcium Proteinase 3 (PR3) Ab See scanned report Myeloperoxidase Ab See scanned report Glomerular Base Mem IgG See scanned report Crossmatch See Detail 11/02/17 11/02/17 11/03/17 12:13 20:37 00:36 WBC 20.7 H 20.6 H RBC 3.04 L 2.88 L Hgb 8.9 L 8.5 L Hct 26.6 L 25.2 L MCV 88 88 MCH 29 30 MCHC 34 34 RDW 14.6 14.5 Plt Count 175 177 Add Manual Diff Complete Complete Complete Total Counted 100 100 100 Seg Neutrophils % Screen Printing Equipment Setter Seg Neuts % (Manual) 91.0 H 97.0 H 85.0 H Band Neutrophils % 0 0 3.0 Lymphocytes % (Manual) 4.0 L 2.0 L 8.0 L Reactive Lymphs % (Man) 0 0 0 Monocytes % (Manual) 5.0 0 3.0 Eosinophils % (Manual) 0 0 0 Basophils % (Manual) 0 0 0 Metamyelocytes % 0 0 1.0 Myelocytes % 0 1.0 0 Promyelocytes % 0 0 0 Blast Cells % 0 0 0 Nucleated RBC % Not Reportable Not Reportable 4.0 H Seg Neutrophils # Man 22.0 H 20.1 H 17.5 H Band Neutrophils # 0.0 0.0 0.6 Lymphocytes # (Manual) 1.0 L 0.4 L 1.6 Abs React Lymphs (Man) 0.0 0.0 0.0 Monocytes # (Manual) 1.2 H 0.0 0.6 Eosinophils # (Manual) 0.0 0.0 0.0 Basophils # (Manual) 0.0 0.0 0.0 Metamyelocytes # 0.0 0.0 0.2 Myelocytes # 0.0 0.2 0.0 Promyelocytes # 0.0 0.0 0.0 Blast Cells # 0.0 0.0 0.0 WBC Morphology Not Reportable Not Reportable Not Reportable Hypersegmented Neuts Not Reportable Not Reportable Not Reportable Hyposegmented Neuts Not Reportable Not Reportable Not Reportable Hypogranular Neuts Not Reportable Not Reportable Not Reportable Smudge Cells Not Reportable Not Reportable Not Reportable Toxic Granulation Not Reportable Not Reportable Not Reportable Toxic Vacuolation Not Reportable Not Reportable Not Reportable Dohle Bodies Not Reportable Not Reportable Not Reportable Pelger-Huet Anomaly Not Reportable Not Reportable Not Reportable Kam Rods Not Reportable Not Reportable Not Reportable Platelet Estimate Not Reportable Appears normal Appears normal Clumped Platelets Not Reportable Not Reportable Not Reportable Plt Clumps, EDTA Not Reportable Not Reportable Not Reportable Large Platelets Not Reportable Not Reportable Few Giant Platelets Not Reportable Not Reportable Not Reportable Platelet Satelliting Not Reportable Not Reportable Not Reportable Plt Morphology Comment Not Reportable Not Reportable Not Reportable RBC Morphology Not Reportable Not Reportable Not Reportable Dimorphic RBCs Not Reportable Not Reportable Not Reportable Polychromasia Not Reportable Not Reportable Not Reportable Hypochromasia Not Reportable Not Reportable Not Reportable Poikilocytosis Not Reportable Not Reportable Not Reportable Anisocytosis 1+ 1+ 1+ Microcytosis Not Reportable Not Reportable Not Reportable Macrocytosis Not Reportable Not Reportable Not Reportable Spherocytes Not Reportable Not Reportable Not Reportable Pappenheimer Bodies Not Reportable Not Reportable Not Reportable Sickle Cells Not Reportable Not Reportable Not Reportable Target Cells Not Reportable Not Reportable Not Reportable Tear Drop Cells Not Reportable Not Reportable Not Reportable Ovalocytes Not Reportable Not Reportable Not Reportable Helmet Cells Not Reportable Not Reportable Not Reportable Stanley-Provencal Bodies Not Reportable Not Reportable Not Reportable [place] Rings Not Reportable Not Reportable Not Reportable [place] Cells Not Reportable Not Reportable Not Reportable Bite Cells Not Reportable Not Reportable Not Reportable Crenated Cell Not Reportable Not Reportable Not Reportable Elliptocytes Not Reportable Not Reportable Not Reportable Acanthocytes (Spur) Not Reportable Not Reportable Not Reportable Rouleaux Not Reportable Not Reportable Not Reportable Hemoglobin C Crystals Not Reportable Not Reportable Not Reportable Schistocytes Not Reportable Not Reportable Few Malaria parasites Not Reportable Not Reportable Not Reportable Nasir Bodies Not Reportable Not Reportable Not Reportable Hem Pathologist Commnt No No No Sodium Potassium Chloride Carbon Dioxide Anion Gap BUN Creatinine Estimated GFR BUN/Creatinine Ratio Glucose Calcium Proteinase 3 (PR3) Ab Myeloperoxidase Ab Glomerular Base Mem IgG Crossmatch 11/03/17 11/03/17 08:12 11:44 WBC 20.2 H RBC 2.83 L Hgb 8.5 L Hct 25.1 L MCV 89 MCH 30 MCHC 34 RDW 14.8 Plt Count 177 Add Manual Diff Complete Total Counted 100 Seg Neutrophils % Seg Neuts % (Manual) 84.0 H Band Neutrophils % 1.0 Lymphocytes % (Manual) 11.0 L Reactive Lymphs % (Man) 0 Monocytes % (Manual) 4.0 Eosinophils % (Manual) 0 Basophils % (Manual) 0 Metamyelocytes % 0 Myelocytes % 0 Promyelocytes % 0 Blast Cells % 0 Nucleated RBC % 3.0 H Seg Neutrophils # Man 17.0 H Band Neutrophils # 0.2 Lymphocytes # (Manual) 2.2 Abs React Lymphs (Man) 0.0 Monocytes # (Manual) 0.8 Eosinophils # (Manual) 0.0 Basophils # (Manual) 0.0 Metamyelocytes # 0.0 Myelocytes # 0.0 Promyelocytes # 0.0 Blast Cells # 0.0 WBC Morphology Not Reportable Hypersegmented Neuts Not Reportable Hyposegmented Neuts Not Reportable Hypogranular Neuts Not Reportable Smudge Cells Not Reportable Toxic Granulation Not Reportable Toxic Vacuolation Not Reportable Dohle Bodies Not Reportable Pelger-Huet Anomaly Not Reportable Kam Rods Not Reportable Platelet Estimate Not Reportable Clumped Platelets Not Reportable Plt Clumps, EDTA Not Reportable Large Platelets Not Reportable Giant Platelets Not Reportable Platelet Satelliting Not Reportable Plt Morphology Comment Not Reportable RBC Morphology Not Reportable Dimorphic RBCs Not Reportable Polychromasia Few Hypochromasia Not Reportable Poikilocytosis Not Reportable Anisocytosis 1+ Microcytosis Not Reportable Macrocytosis Not Reportable Spherocytes Not Reportable Pappenheimer Bodies Not Reportable Sickle Cells Not Reportable Target Cells Not Reportable Tear Drop Cells Not Reportable Ovalocytes Not Reportable Helmet Cells Not Reportable Stanley-Provencal Bodies Not Reportable [place] Rings Not Reportable [place] Cells Not Reportable Bite Cells Not Reportable Crenated Cell Not Reportable Elliptocytes Not Reportable Acanthocytes (Spur) Not Reportable Rouleaux Not Reportable Hemoglobin C Crystals Not Reportable Schistocytes Not Reportable Malaria parasites Not Reportable Nasir Bodies Not Reportable Hem Pathologist Commnt No Sodium 141 Potassium 4.0 Chloride 99.7 Carbon Dioxide 29 Anion Gap 16 BUN 46 H Creatinine 4.7 H Estimated GFR 18 BUN/Creatinine Ratio 10 Glucose 110 H Calcium 7.9 L Proteinase 3 (PR3) Ab Myeloperoxidase Ab Glomerular Base Mem IgG Crossmatch
[2017-11-03 18:23] LABS: Bacteria,Urine 2+ /HPF (Negative); Bilirubin,Urine NEG (Negative); Blood,Urine SM (Negative); Ketones,Urine NEG (Negative); Leukocyte Esterase,Urine MOD (Negative); Mucus,Urine FEW /HPF; Nitrite,Urine NEG (Negative); Urobilinogen,Urine < 2.0 mg/dL (<2.0)
[2017-11-03 18:24] LABS: Protein,Urine >500 mg/dL (Negative)
--- NOTE | 2017-11-03 20:50 | Progress Note ---
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 Hemolytic anemia vs anemia of chronic renal disease Transfuse for hemoglobin<8 Hyperparathyroidism Electrolyte abnormalities Hyperkalemia, hypocalcemia, hyperphosphatemia Improving with HD Monitoring Hyperthyroidism On methimazole Hypertension BP controlled now on amlodipine and clonidine Lupus On Plaquenil and corticosteroids DVT prophylaxis Heparin subcutaneous History Interval history: no complaints Hospitalist Physical - Constitutional Vitals: Temp Pulse Resp BP Pulse Ox 98.3 F 63 20 128/77 99 11/03/17 17:20 11/03/17 17:20 11/03/17 17:20 11/03/17 17:20 11/03/17 17:20 General appearance: Present: no acute distress - EENT Eyes: Present: PERRL, EOM intact - Neck Neck: Present: supple, normal ROM. Absent: masses or JVD - Respiratory Respiratory effort: normal Respiratory: bilateral: CTA, negative: rhonchi, wheezing - Cardiovascular Rhythm: regular Heart Sounds: Present: S1 & S2. Absent: systolic murmur - Extremities Extremities: no ischemia - Abdominal General gastrointestinal: soft, non-tender, non-distended, normal bowel sounds - Psychiatric Psychiatric: cooperative - Neurologic Neurologic: CNII-XII intact, no focal deficits Results - Labs CBC & Chem 7: 11/03/17 08:12 11/03/17 11:44 Labs: Laboratory Last Values WBC 20.2 K/mm3 (4.5-11.0) H 11/03/17 08:12 RBC 2.83 M/mm3 (3.65-5.03) L 11/03/17 08:12 Hgb 8.5 gm/dl (11.8-15.2) L 11/03/17 08:12 Hct 25.1 % (35.5-45.6) L 11/03/17 08:12 MCV 89 fl (84-94) 11/03/17 08:12 MCH 30 pg (28-32) 11/03/17 08:12 MCHC 34 % (32-34) 11/03/17 08:12 RDW 14.8 % (13.2-15.2) 11/03/17 08:12 Plt Count 177 K/mm3 (140-440) 11/03/17 08:12 Lymph % (Auto) 6.6 % (13.4-35.0) L 11/01/17 08:30 [place] % (Auto) 4.9 % (0.0-7.3) 11/01/17 08:30 Eos % (Auto) 0.0 % (0.0-4.3) 11/01/17 08:30 Baso % (Auto) 0.1 % (0.0-1.8) 11/01/17 08:30 Lymph # 0.9 K/mm3 (1.2-5.4) L 11/01/17 08:30 [place] # 0.6 K/mm3 (0.0-0.8) 11/01/17 08:30 Eos # 0.0 K/mm3 (0.0-0.4) 11/01/17 08:30 Baso # 0.0 K/mm3 (0.0-0.1) 11/01/17 08:30 Add Manual Diff Complete 11/03/17 08:12 Total Counted 100 11/03/17 08:12 Seg Neutrophils % Isotope Technician 11/02/17 20:37 Seg Neuts % (Manual) 84.0 % (40.0-70.0) H 11/03/17 08:12 Band Neutrophils % 1.0 % 11/03/17 08:12 Lymphocytes % (Manual) 11.0 % (13.4-35.0) L 11/03/17 08:12 Reactive Lymphs % (Man) 0 % 11/03/17 08:12 Monocytes % (Manual) 4.0 % (0.0-7.3) 11/03/17 08:12 Eosinophils % (Manual) 0 % (0.0-4.3) 11/03/17 08:12 Basophils % (Manual) 0 % (0.0-1.8) 11/03/17 08:12 Metamyelocytes % 0 % 11/03/17 08:12 Myelocytes % 0 % 11/03/17 08:12 Promyelocytes % 0 % 11/03/17 08:12 Blast Cells % 0 % 11/03/17 08:12 Nucleated RBC % 3.0 % (0.0-0.9) H 11/03/17 08:12 Seg Neutrophils # 11.6 K/mm3 (1.8-7.7) H 11/01/17 08:30 Seg Neutrophils # Man 17.0 K/mm3 (1.8-7.7) H 11/03/17 08:12 Band Neutrophils # 0.2 K/mm3 11/03/17 08:12 Lymphocytes # (Manual) 2.2 K/mm3 (1.2-5.4) 11/03/17 08:12 Abs React Lymphs (Man) 0.0 K/mm3 11/03/17 08:12 Monocytes # (Manual) 0.8 K/mm3 (0.0-0.8) 11/03/17 08:12 Eosinophils # (Manual) 0.0 K/mm3 (0.0-0.4) 11/03/17 08:12 Basophils # (Manual) 0.0 K/mm3 (0.0-0.1) 11/03/17 08:12 Metamyelocytes # 0.0 K/mm3 11/03/17 08:12 Myelocytes # 0.0 K/mm3 11/03/17 08:12 Promyelocytes # 0.0 K/mm3 11/03/17 08:12 Blast Cells # 0.0 K/mm3 11/03/17 08:12 WBC Morphology Not Reportable 11/03/17 08:12 Hypersegmented Neuts Not Reportable 11/03/17 08:12 Hyposegmented Neuts Not Reportable 11/03/17 08:12 Hypogranular Neuts Not Reportable 11/03/17 08:12 Smudge Cells Not Reportable 11/03/17 08:12 Toxic Granulation Not Reportable 11/03/17 08:12 Toxic Vacuolation Not Reportable 11/03/17 08:12 Dohle Bodies Not Reportable 11/03/17 08:12 Pelger-Huet Anomaly Not Reportable 11/03/17 08:12 Kam Rods Not Reportable 11/03/17 08:12 Platelet Estimate Not Reportable 11/03/17 08:12 Clumped Platelets Not Reportable 11/03/17 08:12 Plt Clumps, EDTA Not Reportable 11/03/17 08:12 Large Platelets Not Reportable 11/03/17 08:12 Giant Platelets Not Reportable 11/03/17 08:12 Platelet Satelliting Not Reportable 11/03/17 08:12 Plt Morphology Comment Not Reportable 11/03/17 08:12 RBC Morphology Not Reportable 11/03/17 08:12 Dimorphic RBCs Not Reportable 11/03/17 08:12 Polychromasia Few 11/03/17 08:12 Hypochromasia Not Reportable 11/03/17 08:12 Poikilocytosis Not Reportable 11/03/17 08:12 Anisocytosis 1+ 11/03/17 08:12 Microcytosis Not Reportable 11/03/17 08:12 Macrocytosis Not Reportable 11/03/17 08:12 Spherocytes Not Reportable 11/03/17 08:12 Pappenheimer Bodies Not Reportable 11/03/17 08:12 Sickle Cells Not Reportable 11/03/17 08:12 Target Cells Not Reportable 11/03/17 08:12 Tear Drop Cells Not Reportable 11/03/17 08:12 Ovalocytes Not Reportable 11/03/17 08:12 Helmet Cells Not Reportable 11/03/17 08:12 Stanley-[place] Bodies Not Reportable 11/03/17 08:12 [place] Rings Not Reportable 11/03/17 08:12 [place] Cells Not Reportable 11/03/17 08:12 Bite Cells Not Reportable 11/03/17 08:12 Crenated Cell Not Reportable 11/03/17 08:12 Elliptocytes Not Reportable 11/03/17 08:12 Acanthocytes (Spur) Not Reportable 11/03/17 08:12 Rouleaux Not Reportable 11/03/17 08:12 Hemoglobin C Crystals Not Reportable 11/03/17 08:12 Schistocytes Not Reportable 11/03/17 08:12 Malaria parasites Not Reportable 11/03/17 08:12 ESR 42 mm/Hr (0-20) 10/27/17 05:15 Percent Retic 0.89 % (0.78-2.58) 10/27/17 17:16 Nasir Bodies Not Reportable 11/03/17 08:12 Hem Pathologist Commnt No 11/03/17 08:12 PT 13.0 Sec. (12.2-14.9) 10/31/17 04:56 INR 0.94 (0.87-1.13) 10/31/17 04:56 APTT 30.9 Sec. (24.2-36.6) 10/25/17 15:28 Sodium 141 mmol/L (137-145) 11/03/17 11:44 Potassium 4.0 mmol/L (3.6-5.0) 11/03/17 11:44 Chloride 99.7 mmol/L (98-107) 11/03/17 11:44 Carbon Dioxide 29 mmol/L (22-30) 11/03/17 11:44 Anion Gap 16 mmol/L 11/03/17 11:44 BUN 46 mg/dL (9-20) H 11/03/17 11:44 Creatinine 4.7 mg/dL (0.8-1.5) H 11/03/17 11:44 Estimated GFR 18 ml/min 11/03/17 11:44 BUN/Creatinine Ratio 10 % 11/03/17 11:44 Glucose 110 mg/dL (75-100) H 11/03/17 11:44 POC Glucose 117 (70-105) H 10/25/17 16:33 Hemoglobin A1c 6.9 % (4-6) H 10/25/17 14:37 Calcium 7.9 mg/dL (8.4-10.2) L 11/03/17 11:44 Phosphorus 7.00 mg/dL (2.5-4.5) H 10/31/17 04:56 Iron 63 ug/dL (49-181) 10/26/17 13:46 TIBC 144 mcg/dL (250-450) L 10/26/17 13:46 % Saturation 43.75 % 10/26/17 13:46 Transferrin 130 mg/dl (180-329) L 10/26/17 13:46 Ferritin 1014.0 ng/mL (13.0-400.0) H 10/26/17 13:46 Total Bilirubin 0.20 mg/dL (0.1-1.2) 11/01/17 05:26 AST 21 units/L (5-40) 11/01/17 05:26 ALT 44 units/L (7-56) 11/01/17 05:26 Alkaline Phosphatase 50 units/L (35-129) 11/01/17 05:26 Lactate Dehydrogenase 237 units/L (91-180) H 11/01/17 05:26 Total Protein 5.2 g/dL (6.3-8.2) L 11/01/17 05:26 Albumin 2.7 g/dL (3.9-5) L 11/01/17 05:26 Albumin/Globulin Ratio 1.1 % 11/01/17 05:26 Amylase 247 units/L (27-131) H 10/25/17 14:37 Lipase 152 units/L (13-60) H 10/25/17 14:37 Vitamin B12 761.2 pg/mL (211-911) 10/27/17 17:17 Folate > 20.00 ng/mL (7.3-26.0) 10/26/17 13:46 PTH Intact 516.1 pg/mL (15-65) H 10/28/17 08:07 Urine Color Margo (Yellow) 11/03/17 17:50 Urine Turbidity Clear (Clear) 11/03/17 17:50 Urine pH 5.0 (5.0-7.0) 11/03/17 17:50 Ur Specific [place] 1.019 (1.003-1.030) 11/03/17 17:50 Urine Protein >500 mg/dL (Negative) 11/03/17 17:50 Urine Glucose (UA) Neg mg/dL (Negative) 11/03/17 17:50 Urine Ketones Neg mg/dL (Negative) 11/03/17 17:50 Urine Blood Sm (Negative) 11/03/17 17:50 Urine Nitrite Neg (Negative) 11/03/17 17:50 Urine Bilirubin Neg (Negative) 11/03/17 17:50 Urine Urobilinogen < 2.0 mg/dL (<2.0) 11/03/17 17:50 Ur Leukocyte Esterase Mod (Negative) 11/03/17 17:50 Urine WBC (Auto) 53.0 /HPF (0.0-6.0) H 11/03/17 17:50 Urine RBC (Auto) 16.0 /HPF (0.0-6.0) 11/03/17 17:50 U Epithel Cells (Auto) 2.0 /HPF (0-13.0) 11/03/17 17:50 Urine Bacteria (Auto) 2+ /HPF (Negative) 11/03/17 17:50 Hyaline Casts 3 /LPF 11/03/17 17:50 Urine Mucus Few /HPF 11/03/17 17:50 Urine Eosinophils 2% (None Seen) 10/25/17 21:44 Urine Creatinine 87.5 mg/dL (0.1-20.0) H 10/25/17 21:44 Protein/Creatinin Ratio 9.92 10/25/17 21:44 Urine Sodium 56 mmol/L 10/25/17 21:44 Urine Total Protein 868 mg/dL (5-11.8) H 10/25/17 21:44 Proteinase 3 (PR3) Ab See scanned report 10/25/17 16:22 Myeloperoxidase Ab See scanned report 10/25/17 16:22 Glomerular Base Mem IgG See scanned report 10/25/17 16:22 Hep Bs Antigen Non-reactive (Negative) 10/25/17 16:31 Hepatitis C Antibody Non-reactive (NonReactive) 10/25/17 16:30 HIV 1&2 Antibody Rapid Non react (Non React) 10/25/17 16:22 HIV P24 Antigen Non react (Non React) 10/25/17 16:22 Schistocytes Smear Rare 10/27/17 17:16 Blood Type B POSITIVE 10/31/17 00:56 Antibody Screen Negative 10/31/17 00:56 Crossmatch See Detail 10/31/17 00:56
[2017-11-03] MEDS: CELLCEPT PO SCH (23:39)
[2017-11-03] MEDS: BENADRYL PO PRN (23:43)
[2017-11-04] MEDS: DILAUDID IV PRN ×4 (00:42→23:09)
[2017-11-04] MEDS: CATAPRES PO SCH ×3 (03:36→18:47)
[2017-11-04 05:41] LABS: Hematocrit 26.2 % (35.5-45.6); Hemoglobin 8.9 gm/dl (11.8-15.2); Mean Corpuscular HGB Conc 34 % (32-34); Mean Corpuscular Hemoglobin 30 pg (28-32); Mean Corpuscular Volume 89 fl (84-94); Platelet Count 191 K/mm3 (140-440); Red Blood Count 2.96 M/mm3 (3.65-5.03); Red Cell Distribution Width 14.5 % (13.2-15.2); White Blood Count 20.1 K/mm3 (4.5-11.0)
[2017-11-04 05:45] LABS: Bacteria,Urine 2+ /HPF (Negative); Bilirubin,Urine NEG (Negative); Blood,Urine SM (Negative); Ketones,Urine NEG (Negative); Leukocyte Esterase,Urine LG (Negative); Mucus,Urine FEW /HPF; Nitrite,Urine NEG (Negative); Urobilinogen,Urine < 2.0 mg/dL (<2.0)
[2017-11-04 05:51] LABS: Protein,Urine >500 mg/dL (Negative)
[2017-11-04 05:52] LABS: Calcium 8.2 mg/dL (8.4-10.2); Chloride 97.2 mmol/L (98-107); Potassium 4.2 mmol/L (3.6-5.0)
[2017-11-04] MEDS: RENVELA PO SCH ×3 (07:30→16:30)
[2017-11-04 08:09] LABS: Anisocytosis 1+; Basophils % (Manual) 0 % (0.0-1.8); Blastocytes % (Manual) 0 %; Eosinophils % (Manual) 0 % (0.0-4.3)
[2017-11-04 08:10] LABS: Diff Status Complete; Polychromasia Few
[2017-11-04] MEDS: ROCALTROL PO SCH (10:00)
[2017-11-04] MEDS: TAPAZOLE PO SCH (10:00)
[2017-11-04] MEDS: HEPARIN SUB-Q SCH ×2 (10:00→23:02)
[2017-11-04] MEDS: NORVASC PO SCH (10:00)
[2017-11-04] MEDS: CELLCEPT PO SCH ×2 (10:00→23:01)
[2017-11-04] MEDS: THERAGRAN Tab PO SCH (10:00)
[2017-11-04] MEDS: PLAQUENIL PO SCH (10:00)
[2017-11-04] MEDS: DELTASONE PO SCH (10:00)
--- NOTE | 2017-11-04 10:32 | Progress Note ---
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 Cr in the past was 3.5. Now with worsening renal failure. Could have FRANKLYN vs CKD progression. -Initiated on IHD via fem VC. HD today, will eval for need daily. Fem VC being switched to IJ TDC since has been on HD for a while. -YAMILET, ANCA, Anti-DsDNA, Complements, Anti GBM, Hep panel, HIV, Urine PCR ordered -Hep Panel, HIV -ve. ANCA/Anti GBM -ve as well. -Urine PCR shows nephrotic range proteinuria. UA did not have red cells. Repeat UA showed red cells. -Renal US shows CKD, no hydronephrosis. -3 day pulse of Solumedrol 1 gm daily IV started 10/26 - 10/28. Now on prednisone 60 mg daily. -s/p CT guided Renal bx 10/31/[address] Tapia about prelim results. Per him bx had 16 glomeruli and out of the 16 around 30% showed chronic fibrotic changes. 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 Around 50% crescents but around 20 % active crescents. Per him, likely has class 3 lupus on bx. There are also changes of ATN on the biopsy. Likely from proteinuria. -Disssed ISS with patient including cytoxan and cellcept. He was explained risks and benefits of cytoxan including infertility, he declined being started on it. Also given pt's history of non compliance in the past he would not be a good candidate of cytoxan given he may not f/u outpatient. He is also young so would be at risk of infertility with it. Pt ok with starting cellcept induction. -Started on Cellcept 1500 mg BID induction 11/03/17. -He may benefit from seeing Rheumatology to see if many benifit from alternative therapies like rituxan. There is not Rheum at [facility] so pt will benifit from being transferred to [facility] where he has gotten his care in the past as well. 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 s/p 3 cycles of plasma exchange. -Transfusion PRN per primary and hemonc -EAOSFO03 antibody ordered. 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 Hyperphosphatemia: -Started renvella WMs Hyperkalemia: -Improved with HD. Low K diet. Essential Hypertension: -Titrate BP meds PRN to keep SBP <130, hydrazine started. -Avoid Salomon inh/ARBs SLE: -Can continue home meds -Per primary Plan d/w HD RN. Juan Angulo MD Nephrology, Hypertension, Dialysis, Transplantation Phone no: [phone] Subjective Date of service: 11/04/17 Principal diagnosis: ARF/CKD Acute Hemolytic anemia Interval history: Seen on HD. Denies CP/SHOB. Objective - Exam Narrative Exam: [id number] HEENT: PERRLA Neck: No JVD Chest: CTAB CVS: RRR Abd: Soft/Nt/ND/BS+ Ext: No cce, Rt fem VC Psyche: Appropriate mood - Vital Signs Vital signs: Vital Signs - 12hr 11/03/17 11/03/17 11/04/17 23:42 23:43 00:42 Temperature Pulse Rate Respiratory 20 20 20 Rate Blood Pressure O2 Sat by Pulse Oximetry 11/04/17 11/04/17 11/04/17 01:12 03:36 04:23 Temperature 98.1 F Pulse Rate 76 54 L Respiratory 18 18 Rate Blood Pressure 154/82 143/89 O2 Sat by Pulse 100 Oximetry 11/04/17 11/04/17 11/04/17 05:14 05:44 08:51 Temperature 97.9 F Pulse Rate 61 Respiratory 18 18 18 Rate Blood Pressure 145/97 O2 Sat by Pulse 99 Oximetry - Lab 11/04/17 05:45 11/04/17 Unknown Most recent lab results Calcium 8.2 mg/dL (8.4-10.2) L 11/04/17 Unknown Phosphorus 7.00 mg/dL (2.5-4.5) H 10/31/17 04:56 Urine Creatinine 87.5 mg/dL (0.1-20.0) H 10/25/17 21:44 Urine Sodium 56 mmol/L 10/25/17 21:44 Urine Total Protein 868 mg/dL (5-11.8) H 10/25/17 21:44
[2017-11-04] MEDS ORDERED: NACL 0.9% 100 ML IV PRN (11:49)
[2017-11-04 13:37] LABS: Calcium 8.3 mg/dL (8.4-10.2); Chloride 96.9 mmol/L (98-107); Potassium 3.9 mmol/L (3.6-5.0)
[2017-11-04] MEDS ORDERED: LEVAQUIN PO SCH (14:00)
[2017-11-04] MEDS ORDERED: NACL 0.9 (PRIMING MACHINE ONLY DIALYSIS) MC ONE (15:26)
[2017-11-04] MEDS: HEPARIN IV PRN (15:39)
[2017-11-04] MEDS: PROCRIT SUB-Q SCH (15:53)
--- NOTE | 2017-11-04 17:56 | Progress Note ---
Assessment and Plan Assessment and plan: Acute renal failure superimposed on chronic kidney disease possible with progression to end-stage Likely secondary to hypertensive nephropathy and lupus nephritis Nephrology consulted Status post renal biopsy 10/31; preliminary result - crescentic GN; nephrology recommended transfer to [place] under rheumatology care for possible cyto/ immunomodulator treatment Status post 3 day pulse of Solu-Medrol, now on prednisone 60 mg HD initiated through Vas-Cath; Vasc Surgery consulted for tunneled dialysis catheter placement Anemia TTP status post plasmapheresis per heme-oncology ? Hemolytic anemia vs anemia of chronic renal disease Transfuse for hemoglobin<8 Hyperparathyroidism Electrolyte abnormalities Hyperkalemia, hypocalcemia, hyperphosphatemia Improving with HD Monitoring Hyperthyroidism On methimazole Hypertension BP controlled now on amlodipine and clonidine Lupus On Plaquenil and corticosteroids DVT prophylaxis Heparin subcutaneous Dispo Transfer to [place] after Permcath placement (Dr. Greene contacted 11/03, Dr. Solis contacted today 11/04). 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 Absent: masses or JVD - Respiratory Respiratory effort: normal Respiratory: bilateral: CTA, negative: rhonchi, wheezing - Cardiovascular Rhythm: regular Heart Sounds: Present: S1 & S2. Absent: systolic murmur - Extremities Extremities: no ischemia - Abdominal General gastrointestinal: soft, non-tender, non-distended, normal bowel sounds - Psychiatric Psychiatric: cooperative - Neurologic Neurologic: CNII-XII intact, no focal deficits Results - Labs CBC & Chem 7: 11/04/17 05:45 11/04/17 Unknown Labs: Laboratory Last Values WBC 20.1 K/mm3 (4.5-11.0) H 11/04/17 05:45 RBC 2.96 M/mm3 (3.65-5.03) L 11/04/17 05:45 Hgb 8.9 gm/dl (11.8-15.2) L 11/04/17 05:45 Hct 26.2 % (35.5-45.6) L 11/04/17 05:45 MCV 89 fl (84-94) 11/04/17 05:45 MCH 30 pg (28-32) 11/04/17 05:45 MCHC 34 % (32-34) 11/04/17 05:45 RDW 14.5 % (13.2-15.2) 11/04/17 05:45 Plt Count 191 K/mm3 (140-440) 11/04/17 05:45 Lymph % (Auto) 6.6 % (13.4-35.0) L 11/01/17 08:30 [place] % (Auto) 4.9 % (0.0-7.3) 11/01/17 08:30 Eos % (Auto) 0.0 % (0.0-4.3) 11/01/17 08:30 Baso % (Auto) 0.1 % (0.0-1.8) 11/01/17 08:30 Lymph # 0.9 K/mm3 (1.2-5.4) L 11/01/17 08:30 [place] # 0.6 K/mm3 (0.0-0.8) 11/01/17 08:30 Eos # 0.0 K/mm3 (0.0-0.4) 11/01/17 08:30 Baso # 0.0 K/mm3 (0.0-0.1) 11/01/17 08:30 Add Manual Diff Complete 11/04/17 05:45 Total Counted 100 11/04/17 05:45 Seg Neutrophils % Electrical Maintenance Worker 11/02/17 20:37 Seg Neuts % (Manual) 85.0 % (40.0-70.0) H 11/04/17 05:45 Band Neutrophils % 4.0 % 11/04/17 05:45 Lymphocytes % (Manual) 7.0 % (13.4-35.0) L 11/04/17 05:45 Reactive Lymphs % (Man) 0 % 11/04/17 05:45 Monocytes % (Manual) 3.0 % (0.0-7.3) 11/04/17 05:45 Eosinophils % (Manual) 0 % (0.0-4.3) 11/04/17 05:45 Basophils % (Manual) 0 % (0.0-1.8) 11/04/17 05:45 Metamyelocytes % 1.0 % 11/04/17 05:45 Myelocytes % 0 % 11/04/17 05:45 Promyelocytes % 0 % 11/04/17 05:45 Blast Cells % 0 % 11/04/17 05:45 Nucleated RBC % 1.0 % (0.0-0.9) H 11/04/17 05:45 Seg Neutrophils # 11.6 K/mm3 (1.8-7.7) H 11/01/17 08:30 Seg Neutrophils # Man 17.1 K/mm3 (1.8-7.7) H 11/04/17 05:45 Band Neutrophils # 0.8 K/mm3 11/04/17 05:45 Lymphocytes # (Manual) 1.4 K/mm3 (1.2-5.4) 11/04/17 05:45 Abs React Lymphs (Man) 0.0 K/mm3 11/04/17 05:45 Monocytes # (Manual) 0.6 K/mm3 (0.0-0.8) 11/04/17 05:45 Eosinophils # (Manual) 0.0 K/mm3 (0.0-0.4) 11/04/17 05:45 Basophils # (Manual) 0.0 K/mm3 (0.0-0.1) 11/04/17 05:45 Metamyelocytes # 0.2 K/mm3 11/04/17 05:45 Myelocytes # 0.0 K/mm3 11/04/17 05:45 Promyelocytes # 0.0 K/mm3 11/04/17 05:45 Blast Cells # 0.0 K/mm3 11/04/17 05:45 WBC Morphology Not Reportable 11/04/17 05:45 Hypersegmented Neuts Not Reportable 11/04/17 05:45 Hyposegmented Neuts Not Reportable 11/04/17 05:45 Hypogranular Neuts Not Reportable 11/04/17 05:45 Smudge Cells Not Reportable 11/04/17 05:45 Toxic Granulation Not Reportable 11/04/17 05:45 Toxic Vacuolation Not Reportable 11/04/17 05:45 Dohle Bodies Not Reportable 11/04/17 05:45 Pelger-Huet Anomaly Not Reportable 11/04/17 05:45 Kam Rods Not Reportable 11/04/17 05:45 Platelet Estimate Not Reportable 11/04/17 05:45 Clumped Platelets Not Reportable 11/04/17 05:45 Plt Clumps, EDTA Not Reportable 11/04/17 05:45 Large Platelets Not Reportable 11/04/17 05:45 Giant Platelets Not Reportable 11/04/17 05:45 Platelet Satelliting Not Reportable 11/04/17 05:45 Plt Morphology Comment Not Reportable 11/04/17 05:45 RBC Morphology Not Reportable 11/04/17 05:45 Dimorphic RBCs Not Reportable 11/04/17 05:45 Polychromasia Few 11/04/17 05:45 Hypochromasia Not Reportable 11/04/17 05:45 Poikilocytosis Not Reportable 11/04/17 05:45 Anisocytosis 1+ 11/04/17 05:45 Microcytosis Not Reportable 11/04/17 05:45 Macrocytosis Not Reportable 11/04/17 05:45 Spherocytes Not Reportable 11/04/17 05:45 Pappenheimer Bodies Not Reportable 11/04/17 05:45 Sickle Cells Not Reportable 11/04/17 05:45 Target Cells Not Reportable 11/04/17 05:45 Tear Drop Cells Not Reportable 11/04/17 05:45 Ovalocytes Not Reportable 11/04/17 05:45 Helmet Cells Not Reportable 11/04/17 05:45 [place] Bodies Not Reportable 11/04/17 05:45 [place] Rings Not Reportable 11/04/17 05:45 [place] Cells Not Reportable 11/04/17 05:45 Bite Cells Not Reportable 11/04/17 05:45 Crenated Cell Not Reportable 11/04/17 05:45 Elliptocytes Not Reportable 11/04/17 05:45 Acanthocytes (Spur) Not Reportable 11/04/17 05:45 Rouleaux Not Reportable 11/04/17 05:45 Hemoglobin C Crystals Not Reportable 11/04/17 05:45 Schistocytes Not Reportable 11/04/17 05:45 Malaria parasites Not Reportable 11/04/17 05:45 ESR 42 mm/Hr (0-20) 10/27/17 05:15 Percent Retic 0.89 % (0.78-2.58) 10/27/17 17:16 Nasir Bodies Not Reportable 11/04/17 05:45 Hem Pathologist Commnt No 11/04/17 05:45 PT 13.0 Sec. (12.2-14.9) 10/31/17 04:56 INR 0.94 (0.87-1.13) 10/31/17 04:56 APTT 30.9 Sec. (24.2-36.6) 10/25/17 15:28 Sodium 139 mmol/L (137-145) 11/04/17 Unknown Potassium 4.2 mmol/L (3.6-5.0) 11/04/17 Unknown Chloride 97.2 mmol/L (98-107) L 11/04/17 Unknown Carbon Dioxide 27 mmol/L (22-30) 11/04/17 Unknown Anion Gap 19 mmol/L 11/04/17 Unknown BUN 59 mg/dL (9-20) H 11/04/17 Unknown Creatinine 5.9 mg/dL (0.8-1.5) H 11/04/17 Unknown Estimated GFR 14 ml/min 11/04/17 Unknown BUN/Creatinine Ratio 10 % 11/04/17 Unknown Glucose 100 mg/dL (75-100) 11/04/17 Unknown POC Glucose 117 (70-105) H 10/25/17 16:33 Hemoglobin A1c 6.9 % (4-6) H 10/25/17 14:37 Calcium 8.2 mg/dL (8.4-10.2) L 11/04/17 Unknown Phosphorus 7.00 mg/dL (2.5-4.5) H 10/31/17 04:56 Iron 63 ug/dL (49-181) 10/26/17 13:46 TIBC 144 mcg/dL (250-450) L 10/26/17 13:46 % Saturation 43.75 % 10/26/17 13:46 Transferrin 130 mg/dl (180-329) L 10/26/17 13:46 Ferritin 1014.0 ng/mL (13.0-400.0) H 10/26/17 13:46 Total Bilirubin 0.20 mg/dL (0.1-1.2) 11/01/17 05:26 AST 21 units/L (5-40) 11/01/17 05:26 ALT 44 units/L (7-56) 11/01/17 05:26 Alkaline Phosphatase 50 units/L (35-129) 11/01/17 05:26 Lactate Dehydrogenase 237 units/L (91-180) H 11/01/17 05:26 Total Protein 5.2 g/dL (6.3-8.2) L 11/01/17 05:26 Albumin 2.7 g/dL (3.9-5) L 11/01/17 05:26 Albumin/Globulin Ratio 1.1 % 11/01/17 05:26 Amylase 247 units/L (27-131) H 10/25/17 14:37 Lipase 152 units/L (13-60) H 10/25/17 14:37 Vitamin B12 761.2 pg/mL (211-911) 10/27/17 17:17 Folate > 20.00 ng/mL (7.3-26.0) 10/26/17 13:46 PTH Intact 516.1 pg/mL (15-65) H 10/28/17 08:07 Urine Color [place] (Yellow) 11/04/17 05:13 Urine Turbidity Turbid (Clear) 11/04/17 05:13 Urine pH 5.0 (5.0-7.0) 11/04/17 05:13 Ur Specific [place] 1.018 (1.003-1.030) 11/04/17 05:13 Urine Protein >500 mg/dL (Negative) 11/04/17 05:13 Urine Glucose (UA) Neg mg/dL (Negative) 11/04/17 05:13 Urine Ketones Neg mg/dL (Negative) 11/04/17 05:13 Urine Blood Sm (Negative) 11/04/17 05:13 Urine Nitrite Neg (Negative) 11/04/17 05:13 Urine Bilirubin Neg (Negative) 11/04/17 05:13 Urine Urobilinogen < 2.0 mg/dL (<2.0) 11/04/17 05:13 Ur Leukocyte Esterase Lg (Negative) 11/04/17 05:13 Urine WBC (Auto) 93.0 /HPF (0.0-6.0) H 11/04/17 05:13 Urine RBC (Auto) 38.0 /HPF (0.0-6.0) 11/04/17 05:13 U Epithel Cells (Auto) 3.0 /HPF (0-13.0) 11/04/17 05:13 Urine Bacteria (Auto) 2+ /HPF (Negative) 11/04/17 05:13 Urine WBC Clumps 1+ /HPF 11/04/17 05:13 Amorphous Crystals Few 11/04/17 05:13 Hyaline Casts 30 /LPF 11/04/17 05:13 Urine Mucus Few /HPF 11/04/17 05:13 Urine Eosinophils 2% (None Seen) 10/25/17 21:44 Urine Creatinine 87.5 mg/dL (0.1-20.0) H 10/25/17 21:44 Protein/Creatinin Ratio 9.92 10/25/17 21:44 Urine Sodium 56 mmol/L 10/25/17 21:44 Urine Total Protein 868 mg/dL (5-11.8) H 10/25/17 21:44 Proteinase 3 (PR3) Ab See scanned report 10/25/17 16:22 Myeloperoxidase Ab See scanned report 10/25/17 16:22 Glomerular Base Mem IgG See scanned report 10/25/17 16:22 Hep Bs Antigen Non-reactive (Negative) 10/25/17 16:31 Hepatitis C Antibody Non-reactive (NonReactive) 10/25/17 16:30 HIV 1&2 Antibody Rapid Non react (Non React) 10/25/17 16:22 HIV P24 Antigen Non react (Non React) 10/25/17 16:22 Schistocytes Smear Rare 10/27/17 17:16 Blood Type B POSITIVE 10/31/17 00:56 Antibody Screen Negative 10/31/17 00:56 Crossmatch See Detail 10/31/17 00:56
[2017-11-04] MEDS: LEVAQUIN PO SCH (18:48)
[2017-11-05 04:45] LABS: Hematocrit 24.1 % (35.5-45.6); Hemoglobin 8.1 gm/dl (11.8-15.2); Mean Corpuscular HGB Conc 34 % (32-34); Mean Corpuscular Hemoglobin 30 pg (28-32); Mean Corpuscular Volume 90 fl (84-94); Platelet Count 169 K/mm3 (140-440); Red Blood Count 2.69 M/mm3 (3.65-5.03); Red Cell Distribution Width 14.7 % (13.2-15.2); White Blood Count 16.9 K/mm3 (4.5-11.0)
[2017-11-05 04:56] LABS: Calcium 7.8 mg/dL (8.4-10.2); Chloride 95.7 mmol/L (98-107); Potassium 3.7 mmol/L (3.6-5.0)
[2017-11-05] MEDS: CATAPRES PO SCH ×3 (05:41→18:44)
[2017-11-05 06:59] LABS: Basophils % (Manual) 0 % (0.0-1.8); Blastocytes % (Manual) 0 %
[2017-11-05 07:00] LABS: Anisocytosis 1+; Polychromasia Few; Schistocytes Few
[2017-11-05 07:01] LABS: Diff Status Complete
[2017-11-05] MEDS: DELTASONE PO SCH (09:26)
[2017-11-05] MEDS: THERAGRAN Tab PO SCH (09:27)
[2017-11-05] MEDS: NORVASC PO SCH (09:27)
[2017-11-05] MEDS: PLAQUENIL PO SCH (09:27)
[2017-11-05] MEDS: ROCALTROL PO SCH (09:28)
[2017-11-05] MEDS: RENVELA PO SCH ×3 (09:28→18:35)
[2017-11-05] MEDS: TAPAZOLE PO SCH (09:28)
[2017-11-05] MEDS: CELLCEPT PO SCH ×2 (09:29→21:43)
[2017-11-05] MEDS: DILAUDID IV PRN ×4 (09:30→21:43)
[2017-11-05] MEDS: HEPARIN SUB-Q SCH ×2 (09:30→21:44)
--- NOTE | 2017-11-05 13:45 | Progress Note ---
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 Cr in the past was 3.5. Now with worsening renal failure. Could have FRANKLYN vs CKD progression. -Initiated on IHD via fem VC. s/p HD yesterday, no HD today. will eval for need daily. Fem VC being switched to TDC since has been on HD for a while. -YAMILET, ANCA, Anti-DsDNA, Complements, Anti GBM, Hep panel, HIV, Urine PCR ordered -Hep Panel, HIV -ve. ANCA/Anti GBM -ve as well. -Urine PCR shows nephrotic range proteinuria. UA did not have red cells. Repeat UA showed red cells. -Renal US shows CKD, no hydronephrosis. -3 day pulse of Solumedrol 1 gm daily IV started 10/26 - 10/28. Now on prednisone 60 mg daily. -s/p CT guided Renal bx 10/31/[address] Tapia about prelim results. Per him bx had 16 glomeruli and out of the 16 around 30% showed chronic fibrotic changes. 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 Around 50% crescents but around 20 % active crescents. Per him, likely has class 3 lupus on bx. There are also changes of ATN on the biopsy. Likely from proteinuria. -Disssed ISS with patient including cytoxan and cellcept. He was explained risks and benefits of cytoxan including infertility, he declined being started on it. Also given pt's history of non compliance in the past he would not be a good candidate of cytoxan given he may not f/u outpatient. He is also young so would be at risk of infertility with it. Pt ok with starting cellcept induction. -Started on Cellcept 1500 mg BID induction 11/03/17. -He may benefit from seeing Rheumatology to see if many benifit from alternative therapies like rituxan. There is not Rheum at [facility] so pt will benefit from being transferred to [facility] where he has gotten his care in the past as well. 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 s/p 3 cycles of plasma exchange. -Transfusion PRN per primary and hemonc -[id number] antibody ordered. 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 Hyperphosphatemia: -Started renvella WMs. -Monitor phos Essential Hypertension: -Titrate BP meds PRN to keep SBP <130, hydrazine started. -Avoid Salomon inh/ARBs SLE: -Can continue home meds -Per primary Plan d/w Dr Lelia Angulo MD Nephrology, Hypertension, Dialysis, Transplantation Phone no: [phone] Subjective Date of service: 11/05/17 Principal diagnosis: ARF/CKD Acute Hemolytic anemia Interval history: s/p HD yesterday, denies CP/SHOB. Objective - Exam Narrative Exam: GE:[id number] HEENT: PERRLA Neck: No JVD Chest: CTAB CVS: RRR Abd: Soft/Nt/ND/BS+ Ext: No cce, Rt fem VC Psyche: Appropriate mood - Vital Signs Vital signs: Vital Signs - 12hr 11/05/17 11/05/17 11/05/17 03:53 05:41 08:57 Temperature 98.0 F 98.1 F Pulse Rate 78 78 77 Respiratory 18 18 Rate Blood Pressure 131/81 131/81 Blood Pressure 122/73 [Right] O2 Sat by Pulse 99 100 Oximetry 11/05/17 11/05/17 11/05/17 09:27 10:00 11:09 Temperature Pulse Rate 77 83 91 H Respiratory Rate Blood Pressure 122/93 131/83 Blood Pressure [Right] O2 Sat by Pulse Oximetry 11/05/17 12:44 Temperature 98.3 F Pulse Rate 91 H Respiratory 18 Rate Blood Pressure Blood Pressure 131/83 [Right] O2 Sat by Pulse 99 Oximetry - Lab 11/05/17 04:06 11/05/17 04:06 Most recent lab results Calcium 7.8 mg/dL (8.4-10.2) L 11/05/17 04:06 Phosphorus 7.00 mg/dL (2.5-4.5) H 10/31/17 04:56 Urine Creatinine 87.5 mg/dL (0.1-20.0) H 10/25/17 21:44 Urine Sodium 56 mmol/L 10/25/17 21:44 Urine Total Protein 868 mg/dL (5-11.8) H 10/25/17 21:44
--- NOTE | 2017-11-05 20:36 | Progress Note ---
Assessment and Plan Assessment and plan: --Acute on chronic kidney disease /to end-stage renal disease hypertensive nephropathy and lupus nephritis, crescentic GN that biopsy; Status post 3 day pulse of Solu-Medrol, now on prednisone 60 mg, HD initiated through Vas-Cath, Vasc Surgery consulted for tunneled dialysis catheter placement --Anemia of chronic disease/possible TTP/HUS Received 3 cycles of plasmapheresis. 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 Greene contacted 11/03, Dr. Solis contacted today 11/04). Monitor the patient and adjust management as needed History Interval history: Patient feels better no new complaints Vital signs reviewed Alert awake oriented 3 not in acute distress Hospitalist Physical - Constitutional Vitals: Temp Pulse Resp BP Pulse Ox 98.3 F 76 18 128/66 100 11/05/17 12:44 11/05/17 18:44 11/05/17 12:44 11/05/17 18:44 11/05/17 16:21 General appearance: Present: no acute distress, cachectic - EENT Eyes: Present: PERRL, EOM intact - Neck Neck: Present: supple, normal ROM - Respiratory Respiratory effort: normal Respiratory: bilateral: diminished, negative: rales, rhonchi, wheezing - Cardiovascular Rhythm: regular Heart Sounds: Present: S1 & S2 - Extremities Extremities: no ischemia, No edema - Abdominal General gastrointestinal: soft, non-tender, non-distended, normal bowel sounds - Integumentary Integumentary: Present: clear, warm - Psychiatric Psychiatric: appropriate mood/affect, cooperative - Neurologic Neurologic: CNII-XII intact, moves all extremities Results - Labs CBC & Chem 7: 11/05/17 04:06 11/05/17 04:06 Labs: Laboratory Last Values WBC 16.9 K/mm3 (4.5-11.0) H 11/05/17 04:06 RBC 2.69 M/mm3 (3.65-5.03) L 11/05/17 04:06 Hgb 8.1 gm/dl (11.8-15.2) L 11/05/17 04:06 Hct 24.1 % (35.5-45.6) L 11/05/17 04:06 MCV 90 fl (84-94) 11/05/17 04:06 MCH 30 pg (28-32) 11/05/17 04:06 MCHC 34 % (32-34) 11/05/17 04:06 RDW 14.7 % (13.2-15.2) 11/05/17 04:06 Plt Count 169 K/mm3 (140-440) 11/05/17 04:06 Lymph % (Auto) 6.6 % (13.4-35.0) L 11/01/17 08:30 [place] % (Auto) 4.9 % (0.0-7.3) 11/01/17 08:30 Eos % (Auto) 0.0 % (0.0-4.3) 11/01/17 08:30 Baso % (Auto) 0.1 % (0.0-1.8) 11/01/17 08:30 Lymph # 0.9 K/mm3 (1.2-5.4) L 11/01/17 08:30 [place] # 0.6 K/mm3 (0.0-0.8) 11/01/17 08:30 Eos # 0.0 K/mm3 (0.0-0.4) 11/01/17 08:30 Baso # 0.0 K/mm3 (0.0-0.1) 11/01/17 08:30 Add Manual Diff Complete 11/05/17 04:06 Total Counted 100 11/05/17 04:06 Seg Neutrophils % Tool And Die Inspector 11/02/17 20:37 Seg Neuts % (Manual) 73.0 % (40.0-70.0) H 11/05/17 04:06 Band Neutrophils % 5.0 % 11/05/17 04:06 Lymphocytes % (Manual) 12.0 % (13.4-35.0) L 11/05/17 04:06 Reactive Lymphs % (Man) 0 % 11/05/17 04:06 Monocytes % (Manual) 9.0 % (0.0-7.3) H 11/05/17 04:06 Eosinophils % (Manual) 1.0 % (0.0-4.3) 11/05/17 04:06 Basophils % (Manual) 0 % (0.0-1.8) 11/05/17 04:06 Metamyelocytes % 0 % 11/05/17 04:06 Myelocytes % 0 % 11/05/17 04:06 Promyelocytes % 0 % 11/05/17 04:06 Blast Cells % 0 % 11/05/17 04:06 Nucleated RBC % Not Reportable 11/05/17 04:06 Seg Neutrophils # 11.6 K/mm3 (1.8-7.7) H 11/01/17 08:30 Seg Neutrophils # Man 12.3 K/mm3 (1.8-7.7) H 11/05/17 04:06 Band Neutrophils # 0.8 K/mm3 11/05/17 04:06 Lymphocytes # (Manual) 2.0 K/mm3 (1.2-5.4) 11/05/17 04:06 Abs React Lymphs (Man) 0.0 K/mm3 11/05/17 04:06 Monocytes # (Manual) 1.5 K/mm3 (0.0-0.8) H 11/05/17 04:06 Eosinophils # (Manual) 0.2 K/mm3 (0.0-0.4) 11/05/17 04:06 Basophils # (Manual) 0.0 K/mm3 (0.0-0.1) 11/05/17 04:06 Metamyelocytes # 0.0 K/mm3 11/05/17 04:06 Myelocytes # 0.0 K/mm3 11/05/17 04:06 Promyelocytes # 0.0 K/mm3 11/05/17 04:06 Blast Cells # 0.0 K/mm3 11/05/17 04:06 WBC Morphology Not Reportable 11/05/17 04:06 Hypersegmented Neuts Not Reportable 11/05/17 04:06 Hyposegmented Neuts Not Reportable 11/05/17 04:06 Hypogranular Neuts Not Reportable 11/05/17 04:06 Smudge Cells Not Reportable 11/05/17 04:06 Toxic Granulation Not Reportable 11/05/17 04:06 Toxic Vacuolation Not Reportable 11/05/17 04:06 Dohle Bodies Not Reportable 11/05/17 04:06 Pelger-Huet Anomaly Not Reportable 11/05/17 04:06 Kam Rods Not Reportable 11/05/17 04:06 Platelet Estimate Appears normal 11/05/17 04:06 Clumped Platelets Not Reportable 11/05/17 04:06 Plt Clumps, EDTA Not Reportable 11/05/17 04:06 Large Platelets Not Reportable 11/05/17 04:06 Giant Platelets Not Reportable 11/05/17 04:06 Platelet Satelliting Not Reportable 11/05/17 04:06 Plt Morphology Comment Not Reportable 11/05/17 04:06 RBC Morphology Not Reportable 11/05/17 04:06 Dimorphic RBCs Not Reportable 11/05/17 04:06 Polychromasia Few 11/05/17 04:06 Hypochromasia Not Reportable 11/05/17 04:06 Poikilocytosis Not Reportable 11/05/17 04:06 Anisocytosis 1+ 11/05/17 04:06 Microcytosis Not Reportable 11/05/17 04:06 Macrocytosis Not Reportable 11/05/17 04:06 Spherocytes Not Reportable 11/05/17 04:06 Pappenheimer Bodies Not Reportable 11/05/17 04:06 Sickle Cells Not Reportable 11/05/17 04:06 Target Cells Not Reportable 11/05/17 04:06 Tear Drop Cells Not Reportable 11/05/17 04:06 Ovalocytes Not Reportable 11/05/17 04:06 Helmet Cells Not Reportable 11/05/17 04:06 [place] Bodies Not Reportable 11/05/17 04:06 [place] Rings Not Reportable 11/05/17 04:06 [place] Cells Not Reportable 11/05/17 04:06 Bite Cells Not Reportable 11/05/17 04:06 Crenated Cell Not Reportable 11/05/17 04:06 Elliptocytes Not Reportable 11/05/17 04:06 Acanthocytes (Spur) Not Reportable 11/05/17 04:06 Rouleaux Not Reportable 11/05/17 04:06 Hemoglobin C Crystals Not Reportable 11/05/17 04:06 Schistocytes Few 11/05/17 04:06 Malaria parasites Not Reportable 11/05/17 04:06 ESR 42 mm/Hr (0-20) 10/27/17 05:15 Percent Retic 0.89 % (0.78-2.58) 10/27/17 17:16 Nasir Bodies Not Reportable 11/05/17 04:06 Hem Pathologist Commnt No 11/05/17 04:06 PT 13.0 Sec. (12.2-14.9) 10/31/17 04:56 INR 0.94 (0.87-1.13) 10/31/17 04:56 APTT 30.9 Sec. (24.2-36.6) 10/25/17 15:28 Sodium 136 mmol/L (137-145) L 11/05/17 04:06 Potassium 3.7 mmol/L (3.6-5.0) 11/05/17 04:06 Chloride 95.7 mmol/L (98-107) L 11/05/17 04:06 Carbon Dioxide 30 mmol/L (22-30) 11/05/17 04:06 Anion Gap 14 mmol/L 11/05/17 04:06 BUN 37 mg/dL (9-20) H 11/05/17 04:06 Creatinine 4.8 mg/dL (0.8-1.5) H 11/05/17 04:06 Estimated GFR 17 ml/min 11/05/17 04:06 BUN/Creatinine Ratio 8 % 11/05/17 04:06 Glucose 107 mg/dL (75-100) H 11/05/17 04:06 POC Glucose 117 (70-105) H 10/25/17 16:33 Hemoglobin A1c 6.9 % (4-6) H 10/25/17 14:37 Calcium 7.8 mg/dL (8.4-10.2) L 11/05/17 04:06 Phosphorus 7.00 mg/dL (2.5-4.5) H 10/31/17 04:56 Iron 63 ug/dL (49-181) 10/26/17 13:46 TIBC 144 mcg/dL (250-450) L 10/26/17 13:46 % Saturation 43.75 % 10/26/17 13:46 Transferrin 130 mg/dl (180-329) L 10/26/17 13:46 Ferritin 1014.0 ng/mL (13.0-400.0) H 10/26/17 13:46 Total Bilirubin 0.20 mg/dL (0.1-1.2) 11/01/17 05:26 AST 21 units/L (5-40) 11/01/17 05:26 ALT 44 units/L (7-56) 11/01/17 05:26 Alkaline Phosphatase 50 units/L (35-129) 11/01/17 05:26 Lactate Dehydrogenase 237 units/L (91-180) H 11/01/17 05:26 Total Protein 5.2 g/dL (6.3-8.2) L 11/01/17 05:26 Albumin 2.7 g/dL (3.9-5) L 11/01/17 05:26 Albumin/Globulin Ratio 1.1 % 11/01/17 05:26 Amylase 247 units/L (27-131) H 10/25/17 14:37 Lipase 152 units/L (13-60) H 10/25/17 14:37 Vitamin B12 761.2 pg/mL (211-911) 10/27/17 17:17 Folate > 20.00 ng/mL (7.3-26.0) 10/26/17 13:46 PTH Intact 516.1 pg/mL (15-65) H 10/28/17 08:07 Urine Color Margo (Yellow) 11/04/17 05:13 Urine Turbidity Turbid (Clear) 11/04/17 05:13 Urine pH 5.0 (5.0-7.0) 11/04/17 05:13 Ur Specific [place] 1.018 (1.003-1.030) 11/04/17 05:13 Urine Protein >500 mg/dL (Negative) 11/04/17 05:13 Urine Glucose (UA) Neg mg/dL (Negative) 11/04/17 05:13 Urine Ketones Neg mg/dL (Negative) 11/04/17 05:13 Urine Blood Sm (Negative) 11/04/17 05:13 Urine Nitrite Neg (Negative) 11/04/17 05:13 Urine Bilirubin Neg (Negative) 11/04/17 05:13 Urine Urobilinogen < 2.0 mg/dL (<2.0) 11/04/17 05:13 Ur Leukocyte Esterase Lg (Negative) 11/04/17 05:13 Urine WBC (Auto) 93.0 /HPF (0.0-6.0) H 11/04/17 05:13 Urine RBC (Auto) 38.0 /HPF (0.0-6.0) 11/04/17 05:13 U Epithel Cells (Auto) 3.0 /HPF (0-13.0) 11/04/17 05:13 Urine Bacteria (Auto) 2+ /HPF (Negative) 11/04/17 05:13 Urine WBC Clumps 1+ /HPF 11/04/17 05:13 Amorphous Crystals Few 11/04/17 05:13 Hyaline Casts 30 /LPF 11/04/17 05:13 Urine Mucus Few /HPF 11/04/17 05:13 Urine Eosinophils 2% (None Seen) 10/25/17 21:44 Urine Creatinine 87.5 mg/dL (0.1-20.0) H 10/25/17 21:44 Protein/Creatinin Ratio 9.92 10/25/17 21:44 Urine Sodium 56 mmol/L 10/25/17 21:44 Urine Total Protein 868 mg/dL (5-11.8) H 10/25/17 21:44 Proteinase 3 (PR3) Ab See scanned report 10/25/17 16:22 Myeloperoxidase Ab See scanned report 10/25/17 16:22 Glomerular Base Mem IgG See scanned report 10/25/17 16:22 Hep Bs Antigen Non-reactive (Negative) 10/25/17 16:31 Hepatitis C Antibody Non-reactive (NonReactive) 10/25/17 16:30 HIV 1&2 Antibody Rapid Non react (Non React) 10/25/17 16:22 HIV P24 Antigen Non react (Non React) 10/25/17 16:22 Schistocytes Smear Rare 10/27/17 17:16 Blood Type B POSITIVE 10/31/17 00:56 Antibody Screen Negative 10/31/17 00:56 Crossmatch See Detail 10/31/17 00:56
[2017-11-06] MEDS: CATAPRES PO SCH ×3 (02:15→17:52)
[2017-11-06] MEDS: DILAUDID IV PRN ×5 (02:15→17:53)
[2017-11-06 06:45] LABS: Hematocrit 23.1 % (35.5-45.6); Hemoglobin 7.7 gm/dl (11.8-15.2); Mean Corpuscular HGB Conc 33 % (32-34); Mean Corpuscular Hemoglobin 30 pg (28-32); Mean Corpuscular Volume 90 fl (84-94); Platelet Count 170 K/mm3 (140-440); Red Blood Count 2.57 M/mm3 (3.65-5.03); Red Cell Distribution Width 14.6 % (13.2-15.2); White Blood Count 14.7 K/mm3 (4.5-11.0)
[2017-11-06 06:57] LABS: Calcium 8.5 mg/dL (8.4-10.2); Chloride 95.1 mmol/L (98-107); Potassium 4.4 mmol/L (3.6-5.0)
[2017-11-06 08:42] LABS: Anisocytosis 2+; Basophils % (Manual) 0 % (0.0-1.8); Blastocytes % (Manual) 0 %; Eosinophils % (Manual) 0 % (0.0-4.3)
[2017-11-06 08:43] LABS: Diff Status Complete; Macrocytosis Rare; Platelet Estimate Consistent w Auto; Polychromasia Rare; Schistocytes Rare
[2017-11-06] MEDS: HEPARIN SUB-Q SCH ×2 (09:31→21:51)
[2017-11-06] MEDS: PLAQUENIL PO SCH (09:32)
[2017-11-06] MEDS: CELLCEPT PO SCH ×2 (09:32→21:50)
[2017-11-06] MEDS: DELTASONE PO SCH (09:32)
[2017-11-06] MEDS: TAPAZOLE PO SCH (09:32)
[2017-11-06] MEDS: ROCALTROL PO SCH (09:32)
[2017-11-06] MEDS: RENVELA PO SCH ×4 (09:33→17:52)
[2017-11-06] MEDS: THERAGRAN Tab PO SCH (09:33)
[2017-11-06] MEDS: NORVASC PO SCH (09:34)
[2017-11-06] MEDS: PERCOCET 5/325 PO PRN ×2 (13:30→19:16)
[2017-11-06] MEDS: ROXICODONE PO PRN ×2 (13:30→19:16)
[2017-11-06] MEDS ORDERED: NACL 0.9% 100 ML IV PRN (14:53)
--- NOTE | 2017-11-06 14:59 | Progress Note ---
Assessment and Plan - Patient Problems (1) Acute on chronic renal failure Current Visit: Yes Status: Acute Qualifiers: Acute renal failure type: with acute tubular necrosis Chronic kidney disease stage: stage 5, not on chronic dialysis Qualified Code(s): N17.0 - Acute kidney failure with tubular necrosis; N18.5 - Chronic kidney disease, stage 5; N18.5 - Chronic kidney disease, stage 5; N18.5 - Chronic kidney disease , stage 5; N18.5 - Chronic kidney disease, stage 5 Plan to address problem: Patient has worsening Renalfunction. Initiated on HD yesterday Cr and K improving (2) Hyperkalemia Current Visit: Yes Status: Acute Plan to address problem: From 7.6 to 6.6. HD today again .recheck K level (3) Hypertension Current Visit: Yes Status: Chronic Qualifiers: Hypertension type: essential hypertension Qualified Code(s): I10 - Essential (primary) hypertension Plan to address problem: Cont antihypertensives (4) Lupus Current Visit: Yes Status: Chronic Qualifiers: Systemic lupus erythematosus type: unspecified Plan to address problem: Get sed rate Cont Plaquenil (5) Acquired TTP Current Visit: Yes Status: Acute Plan to address problem: Possible Hem onc on board [facility] for plasma exchange Subjective Date of service: 11/06/17 Principal diagnosis: ARF/CKD Acute Hemolytic anemia Interval history: 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 Cr in the past was 3.5. Now with worsening renal failure. Could have FRANKLYN vs CKD progression -Initiated on IHD last night via fem VC Objective - Constitutional Vitals: Vital Signs - 12hr 11/06/17 11/06/17 11/06/17 03:46 09:12 09:15 Temperature 98.2 F 98.7 F 98.6 F Pulse Rate 72 69 64 Respiratory 16 18 20 Rate Blood Pressure 136/73 Blood Pressure 127/73 128/66 [Right] O2 Sat by Pulse 99 98 Oximetry 11/06/17 10:00 Temperature Pulse Rate 64 Respiratory Rate Blood Pressure Blood Pressure [Right] O2 Sat by Pulse Oximetry General appearance: Present: no acute distress, well-nourished - EENT Eyes: PERRL, EOM intact ENT: hearing intact, clear oral mucosa Ears: bilateral: normal - Neck Neck: supple, normal ROM - Respiratory Respiratory effort: normal Respiratory: bilateral: CTA - Breasts Breasts: normal - Cardiovascular Rhythm: regular Heart Sounds: Present: S1 & S2. Absent: gallop, rub Extremities: pulses intact, No edema, normal color, Full ROM - Gastrointestinal General gastrointestinal: Present: soft, non-tender, non-distended, normal bowel sounds - Genitourinary Male genitourinary: normal - Integumentary Integumentary: clear, warm, dry - Musculoskeletal Musculoskeletal: 1, strength equal bilaterally - Neurologic Neurologic: moves all extremities - Psychiatric Psychiatric: memory intact, appropriate mood/affect, intact judgment & insight - Labs CBC & Chem 7: 11/06/17 05:20 11/06/17 05:20 Labs: Abnormal lab results 11/06/17 11/06/17 11/06/17 Range/Units 05:20 05:20 05:20 WBC 14.7 H (4.5-11.0) K/mm3 RBC 2.57 L (3.65-5.03) M/mm3 Hgb 7.7 L (11.8-15.2) gm/dl Hct 23.1 L (35.5-45.6) % Seg Neuts % (Manual) 73.0 H (40.0-70.0) % Lymphocytes % (Manual) 9.0 L (13.4-35.0) % Monocytes % (Manual) 8.0 H (0.0-7.3) % Seg Neutrophils # Man 10.7 H (1.8-7.7) K/mm3 Monocytes # (Manual) 1.2 H (0.0-0.8) K/mm3 Chloride 95.1 L (98-107) mmol/L BUN 56 H (9-20) mg/dL Creatinine 6.2 H (0.8-1.5) mg/dL Phosphorus 6.10 H (2.5-4.5) mg/dL
[2017-11-06] MEDS: LEVAQUIN PO SCH (15:04)
--- NOTE | 2017-11-06 15:30 | Progress Note ---
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 Cr in the past was 3.5. Now with worsening renal failure. Could have FRANKLYN vs CKD progression. -Initiated on IHD via fem VC. s/p HD tuesday no HD today. Plan for HD tomorrow. Fem VC being switched to [facility] since has been on HD for a while. -YAMILET, ANCA, Anti-DsDNA, Complements, Anti GBM, Hep panel, HIV, Urine PCR ordered -Hep Panel, HIV -ve. ANCA/Anti GBM -ve as well. -Urine PCR shows nephrotic range proteinuria. UA did not have red cells. Repeat UA showed red cells. -Renal US shows CKD, no hydronephrosis. -3 day pulse of Solumedrol 1 gm daily IV started 10/26 - 10/28. Now on prednisone 60 mg daily. -s/p CT guided Renal bx 10/31/[address] Tapia about prelim results. Per him bx had 16 glomeruli and out of the 16 around 30% showed chronic fibrotic changes. 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 Around 50% crescents but around 20 % active crescents. Per him, likely has class 3 lupus on bx. There are also changes of ATN on the biopsy. Likely from proteinuria. -Disssed ISS with patient including cytoxan and cellcept. He was explained risks and benefits of cytoxan including infertility, he declined being started on it. Also given pt's history of non compliance in the past he would not be a good candidate of cytoxan given he may not f/u outpatient. He is also young so would be at risk of infertility with it. Pt ok with starting cellcept induction. -Started on Cellcept 1500 mg BID induction 11/03/17. -He may benefit from seeing Rheumatology to see if many benifit from alternative therapies like rituxan. There is not Rheum at [facility] so pt will benefit from being transferred to [facility] where he has gotten his care in the past as well. 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 s/p 3 cycles of plasma exchange. -Transfusion PRN per primary and hemonc -[id number] antibody ordered. 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 Hyperphosphatemia: -Started renvella WMs. -Monitor phos Essential Hypertension: -Titrate BP meds PRN to keep SBP <130, hydrazine started. -Avoid Salomon inh/ARBs SLE: -Can continue home meds -Per primary Plan d/w bedside RN. Juan Angulo MD Nephrology, Hypertension, Dialysis, Transplantation Phone no: [phone] Subjective Date of service: 11/06/17 Principal diagnosis: ARF/CKD Acute Hemolytic anemia Interval history: Denies CP/SHOB. Objective - Exam Narrative Exam: [id number] HEENT: PERRLA Neck: No JVD Chest: CTAB CVS: RRR Abd: Soft/Nt/ND/BS+ Ext: No cce, Rt fem VC Psyche: Appropriate mood - Vital Signs Vital signs: Vital Signs - 12hr 11/06/17 11/06/17 11/06/17 03:46 09:12 09:15 Temperature 98.2 F 98.7 F 98.6 F Pulse Rate 72 69 64 Respiratory 16 18 20 Rate Blood Pressure 136/73 Blood Pressure 127/73 128/66 [Right] O2 Sat by Pulse 99 98 Oximetry 11/06/17 10:00 Temperature Pulse Rate 64 Respiratory Rate Blood Pressure Blood Pressure [Right] O2 Sat by Pulse Oximetry - Lab 11/06/17 05:20 11/06/17 05:20 Most recent lab results Calcium 8.5 mg/dL (8.4-10.2) 11/06/17 05:20 Phosphorus 6.10 mg/dL (2.5-4.5) H 11/06/17 05:20 Urine Creatinine 87.5 mg/dL (0.1-20.0) H 10/25/17 21:44 Urine Sodium 56 mmol/L 10/25/17 21:44 Urine Total Protein 868 mg/dL (5-11.8) H 10/25/17 21:44
[2017-11-07] MEDS: CATAPRES PO SCH ×2 (01:27→10:00)
[2017-11-07] MEDS: DILAUDID IV PRN ×3 (01:27→14:55)
[2017-11-07 06:10] LABS: Hematocrit 22.3 % (35.5-45.6); Hemoglobin 7.6 gm/dl (11.8-15.2); Mean Corpuscular HGB Conc 34 % (32-34); Mean Corpuscular Hemoglobin 31 pg (28-32); Mean Corpuscular Volume 91 fl (84-94); Platelet Count 152 K/mm3 (140-440); Red Blood Count 2.46 M/mm3 (3.65-5.03); White Blood Count 12.9 K/mm3 (4.5-11.0)
[2017-11-07 06:27] LABS: Calcium 8.5 mg/dL (8.4-10.2); Chloride 97.8 mmol/L (98-107); Potassium 4.7 mmol/L (3.6-5.0)
[2017-11-07] MEDS: RENVELA PO SCH ×3 (08:24→18:27)
[2017-11-07] MEDS: HEPARIN SUB-Q SCH ×2 (10:00→22:17)
--- NOTE | 2017-11-07 11:05 | Progress Note ---
Assessment and Plan Assessment and plan: -- Sepsis sec to Ecoli UTI; continue Levaquin renal dose . 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 Patient would benefit by rheumatology evaluation not available in this hospital Patient's symptoms significantly improved, no indication for hospital to hospital transfer, however advised to see a uptwister tender upon discharge --DVT prophylaxis, Heparin subcutaneous Dispo: Possible discharge home tomorrow if stable and cleared by nephrology closely Monitor the patient and adjust management as needed History Interval history: Patient seen and evaluated after returning from hemodialysis He feels better and no new complaints Mild drop in hemoglobin 7.6 today Hospitalist Physical - Constitutional Vitals: Temp Pulse Resp BP Pulse Ox 98.4 F 63 16 138/83 98 11/07/17 08:22 11/07/17 08:22 11/07/17 08:25 11/07/17 08:22 11/07/17 08:22 General appearance: Present: no acute distress, well-nourished - EENT Eyes: Present: PERRL, EOM intact - Neck Neck: Present: supple, normal ROM - Respiratory Respiratory effort: normal Respiratory: bilateral: diminished, negative: rales, rhonchi, wheezing - Cardiovascular Rhythm: regular Heart Sounds: Present: S1 & S2 - Extremities Extremities: no ischemia, No edema Peripheral Pulses: within normal limits - Abdominal General gastrointestinal: soft, non-tender, non-distended, normal bowel sounds - Integumentary Integumentary: Present: clear, warm - Psychiatric Psychiatric: appropriate mood/affect, cooperative - Neurologic Neurologic: CNII-XII intact, moves all extremities Results - Labs CBC & Chem 7: 11/07/17 05:36 11/07/17 05:36 Labs: Laboratory Last Values WBC 12.9 K/mm3 (4.5-11.0) H 11/07/17 05:36 RBC 2.46 M/mm3 (3.65-5.03) L 11/07/17 05:36 Hgb 7.6 gm/dl (11.8-15.2) L 11/07/17 05:36 Hct 22.3 % (35.5-45.6) L 11/07/17 05:36 MCV 91 fl (84-94) 11/07/17 05:36 MCH 31 pg (28-32) 11/07/17 05:36 MCHC 34 % (32-34) 11/07/17 05:36 RDW 15.0 % (13.2-15.2) 11/07/17 05:36 Plt Count 152 K/mm3 (140-440) 11/07/17 05:36 Lymph % (Auto) 8.5 % (13.4-35.0) L 11/07/17 05:36 Todd % (Auto) 7.3 % (0.0-7.3) 11/07/17 05:36 Eos % (Auto) 0.0 % (0.0-4.3) 11/07/17 05:36 Baso % (Auto) 0.0 % (0.0-1.8) 11/07/17 05:36 Lymph # 1.1 K/mm3 (1.2-5.4) L 11/07/17 05:36 Todd # 0.9 K/mm3 (0.0-0.8) H 11/07/17 05:36 Eos # 0.0 K/mm3 (0.0-0.4) 11/07/17 05:36 Baso # 0.0 K/mm3 (0.0-0.1) 11/07/17 05:36 Add Manual Diff Complete 11/06/17 05:20 Total Counted 100 11/06/17 05:20 Seg Neutrophils % 84.2 % (40.0-70.0) H 11/07/17 05:36 Seg Neuts % (Manual) 73.0 % (40.0-70.0) H 11/06/17 05:20 Band Neutrophils % 8.0 % 11/06/17 05:20 Lymphocytes % (Manual) 9.0 % (13.4-35.0) L 11/06/17 05:20 Reactive Lymphs % (Man) 0 % 11/06/17 05:20 Monocytes % (Manual) 8.0 % (0.0-7.3) H 11/06/17 05:20 Eosinophils % (Manual) 0 % (0.0-4.3) 11/06/17 05:20 Basophils % (Manual) 0 % (0.0-1.8) 11/06/17 05:20 Metamyelocytes % 2.0 % 11/06/17 05:20 Myelocytes % 0 % 11/06/17 05:20 Promyelocytes % 0 % 11/06/17 05:20 Blast Cells % 0 % 11/06/17 05:20 Nucleated RBC % Not Reportable 11/06/17 05:20 Seg Neutrophils # 10.9 K/mm3 (1.8-7.7) H 11/07/17 05:36 Seg Neutrophils # Man 10.7 K/mm3 (1.8-7.7) H 11/06/17 05:20 Band Neutrophils # 1.2 K/mm3 11/06/17 05:20 Lymphocytes # (Manual) 1.3 K/mm3 (1.2-5.4) 11/06/17 05:20 Abs React Lymphs (Man) 0.0 K/mm3 11/06/17 05:20 Monocytes # (Manual) 1.2 K/mm3 (0.0-0.8) H 11/06/17 05:20 Eosinophils # (Manual) 0.0 K/mm3 (0.0-0.4) 11/06/17 05:20 Basophils # (Manual) 0.0 K/mm3 (0.0-0.1) 11/06/17 05:20 Metamyelocytes # 0.3 K/mm3 11/06/17 05:20 Myelocytes # 0.0 K/mm3 11/06/17 05:20 Promyelocytes # 0.0 K/mm3 11/06/17 05:20 Blast Cells # 0.0 K/mm3 11/06/17 05:20 WBC Morphology Not Reportable 11/06/17 05:20 Hypersegmented Neuts Not Reportable 11/06/17 05:20 Hyposegmented Neuts Not Reportable 11/06/17 05:20 Hypogranular Neuts Not Reportable 11/06/17 05:20 Smudge Cells Not Reportable 11/06/17 05:20 Toxic Granulation Not Reportable 11/06/17 05:20 Toxic Vacuolation Not Reportable 11/06/17 05:20 Dohle Bodies Not Reportable 11/06/17 05:20 Pelger-Huet Anomaly Not Reportable 11/06/17 05:20 Kam Rods Not Reportable 11/06/17 05:20 Platelet Estimate Consistent w auto 11/06/17 05:20 Clumped Platelets Not Reportable 11/06/17 05:20 Plt Clumps, EDTA Not Reportable 11/06/17 05:20 Large Platelets Not Reportable 11/06/17 05:20 Giant Platelets Not Reportable 11/06/17 05:20 Platelet Satelliting Not Reportable 11/06/17 05:20 Plt Morphology Comment Not Reportable 11/06/17 05:20 RBC Morphology Not Reportable 11/06/17 05:20 Dimorphic RBCs Not Reportable 11/06/17 05:20 Polychromasia Rare 11/06/17 05:20 Hypochromasia Not Reportable 11/06/17 05:20 Poikilocytosis Not Reportable 11/06/17 05:20 Anisocytosis 2+ 11/06/17 05:20 Microcytosis Not Reportable 11/06/17 05:20 Macrocytosis Rare 11/06/17 05:20 Spherocytes Not Reportable 11/06/17 05:20 Pappenheimer Bodies Not Reportable 11/06/17 05:20 Sickle Cells Not Reportable 11/06/17 05:20 Target Cells Not Reportable 11/06/17 05:20 Tear Drop Cells Not Reportable 11/06/17 05:20 Ovalocytes Not Reportable 11/06/17 05:20 Helmet Cells Not Reportable 11/06/17 05:20 [place] Bodies Not Reportable 11/06/17 05:20 Jefferson Rings Not Reportable 11/06/17 05:20 Roseau Cells Not Reportable 11/06/17 05:20 Bite Cells Not Reportable 11/06/17 05:20 Crenated Cell Not Reportable 11/06/17 05:20 Elliptocytes Not Reportable 11/06/17 05:20 Acanthocytes (Spur) Not Reportable 11/06/17 05:20 Rouleaux Not Reportable 11/06/17 05:20 Hemoglobin C Crystals Not Reportable 11/06/17 05:20 Schistocytes Rare 11/06/17 05:20 Malaria parasites Not Reportable 11/06/17 05:20 ESR 42 mm/Hr (0-20) 10/27/17 05:15 Percent Retic 0.89 % (0.78-2.58) 10/27/17 17:16 Nasir Bodies Not Reportable 11/06/17 05:20 Hem Pathologist Commnt No 11/06/17 05:20 PT 13.0 Sec. (12.2-14.9) 10/31/17 04:56 INR 0.94 (0.87-1.13) 10/31/17 04:56 APTT 30.9 Sec. (24.2-36.6) 10/25/17 15:28 Sodium 139 mmol/L (137-145) 11/07/17 05:36 Potassium 4.7 mmol/L (3.6-5.0) 11/07/17 05:36 Chloride 97.8 mmol/L (98-107) L 11/07/17 05:36 Carbon Dioxide 25 mmol/L (22-30) 11/07/17 05:36 Anion Gap 21 mmol/L 11/07/17 05:36 BUN 76 mg/dL (9-20) H 11/07/17 05:36 Creatinine 7.6 mg/dL (0.8-1.5) H 11/07/17 05:36 Estimated GFR 10 ml/min 11/07/17 05:36 BUN/Creatinine Ratio 10 % 11/07/17 05:36 Glucose 139 mg/dL (75-100) H 11/07/17 05:36 POC Glucose 117 (70-105) H 10/25/17 16:33 Hemoglobin A1c 6.9 % (4-6) H 10/25/17 14:37 Calcium 8.5 mg/dL (8.4-10.2) 11/07/17 05:36 Phosphorus 6.10 mg/dL (2.5-4.5) H 11/06/17 05:20 Iron 63 ug/dL (49-181) 10/26/17 13:46 TIBC 144 mcg/dL (250-450) L 10/26/17 13:46 % Saturation 43.75 % 10/26/17 13:46 Transferrin 130 mg/dl (180-329) L 10/26/17 13:46 Ferritin 1014.0 ng/mL (13.0-400.0) H 10/26/17 13:46 Total Bilirubin 0.20 mg/dL (0.1-1.2) 11/01/17 05:26 AST 21 units/L (5-40) 11/01/17 05:26 ALT 44 units/L (7-56) 11/01/17 05:26 Alkaline Phosphatase 50 units/L (35-129) 11/01/17 05:26 Lactate Dehydrogenase 237 units/L (91-180) H 11/01/17 05:26 Total Protein 5.2 g/dL (6.3-8.2) L 11/01/17 05:26 Albumin 2.7 g/dL (3.9-5) L 11/01/17 05:26 Albumin/Globulin Ratio 1.1 % 11/01/17 05:26 Amylase 247 units/L (27-131) H 10/25/17 14:37 Lipase 152 units/L (13-60) H 10/25/17 14:37 Vitamin B12 761.2 pg/mL (211-911) 10/27/17 17:17 Folate > 20.00 ng/mL (7.3-26.0) 10/26/17 13:46 PTH Intact 516.1 pg/mL (15-65) H 10/28/17 08:07 Urine Color Margo (Yellow) 11/04/17 05:13 Urine Turbidity Turbid (Clear) 11/04/17 05:13 Urine pH 5.0 (5.0-7.0) 11/04/17 05:13 Ur Specific Sanford 1.018 (1.003-1.030) 11/04/17 05:13 Urine Protein >500 mg/dL (Negative) 11/04/17 05:13 Urine Glucose (UA) Neg mg/dL (Negative) 11/04/17 05:13 Urine Ketones Neg mg/dL (Negative) 11/04/17 05:13 Urine Blood Sm (Negative) 11/04/17 05:13 Urine Nitrite Neg (Negative) 11/04/17 05:13 Urine Bilirubin Neg (Negative) 11/04/17 05:13 Urine Urobilinogen < 2.0 mg/dL (<2.0) 11/04/17 05:13 Ur Leukocyte Esterase Lg (Negative) 11/04/17 05:13 Urine WBC (Auto) 93.0 /HPF (0.0-6.0) H 11/04/17 05:13 Urine RBC (Auto) 38.0 /HPF (0.0-6.0) 11/04/17 05:13 U Epithel Cells (Auto) 3.0 /HPF (0-13.0) 11/04/17 05:13 Urine Bacteria (Auto) 2+ /HPF (Negative) 11/04/17 05:13 Urine WBC Clumps 1+ /HPF 11/04/17 05:13 Amorphous Crystals Few 11/04/17 05:13 Hyaline Casts 30 /LPF 11/04/17 05:13 Urine Mucus Few /HPF 11/04/17 05:13 Urine Eosinophils 2% (None Seen) 10/25/17 21:44 Urine Creatinine 87.5 mg/dL (0.1-20.0) H 10/25/17 21:44 Protein/Creatinin Ratio 9.92 10/25/17 21:44 Urine Sodium 56 mmol/L 10/25/17 21:44 Urine Total Protein 868 mg/dL (5-11.8) H 10/25/17 21:44 Proteinase 3 (PR3) Ab See scanned report 10/25/17 16:22 Myeloperoxidase Ab See scanned report 10/25/17 16:22 Glomerular Base Mem IgG See scanned report 10/25/17 16:22 Hep Bs Antigen Non-reactive (Negative) 10/25/17 16:31 Hepatitis C Antibody Non-reactive (NonReactive) 10/25/17 16:30 HIV 1&2 Antibody Rapid Non react (Non React) 10/25/17 16:22 HIV P24 Antigen Non react (Non React) 10/25/17 16:22 Schistocytes Smear Rare 10/27/17 17:16 Blood Type B POSITIVE 10/31/17 00:56 Antibody Screen Negative 10/31/17 00:56 Crossmatch See Detail 10/31/17 00:56
[2017-11-07] MEDS ORDERED: NACL 0.9 (PRIMING MACHINE ONLY DIALYSIS) MC ONE (11:23)
[2017-11-07 13:26] LABS: Myeloperoxidase Antibody <1.0 AI (<1.0)
[2017-11-07 13:27] LABS: Albumin 2.8 g/dL (3.8-4.8); Gamma Globulin 1.2 g/dL (0.8-1.7)
[2017-11-07 13:27] LABS: Vitamin D, 25-OH, Total 17 ng/mL (30-100)
[2017-11-07] MEDS: HEPARIN IV PRN (13:30)
--- NOTE | 2017-11-07 13:45 | Progress Note ---
Assessment and Plan - Patient Problems (1) End stage kidney disease Current Visit: Yes Status: Acute Plan to address problem: ESRD secondary to Hypertensive Nephrosclerosis and Lupus Nephritis Hemodialysis today for UF and clearance S/P 3 day pulse of Solumedrol 1 gm daily IV started 10/26 - 10/28. Now on Prednisone 60 mg daily. S/P CT guided Renal biopsy on 10/31/17- 16 [place] and out of the 16 around 30% showed chronic fibrotic changes. 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 Around 50% crescents but around 20% active crescents. Has class 3 lupus on bx. There are also changes of ATN on the biopsy likely from proteinuria. Discussed ISS with patient including Cytoxan and Cellcept. He was explained risks and benefits of Cytoxan including infertility, he declined being started on it. Also given pt's history of non compliance in the past he would not be a good candidate of Cytoxan given he may not f/u outpatient. He is also young so would be at risk of infertility with it. Pt ok with starting Cellcept induction. Started on Cellcept 1500 mg BID induction 11/03/17. He may benefit from seeing Rheumatology to see if many benefit from alternative therapies like Rituxan. There is not Rheum at [facility] so pt will benefit from being transferred to [facility] where he has gotten his care in the past as well. Avoid Nephrotoxic agents Renally dose medications Monitor I/O's (2) Hyperkalemia Current Visit: Yes Status: Acute Plan to address problem: Resolved (3) Anemia Current Visit: Yes Status: Acute Plan to address problem: Received 3 cycles of plasmapheresis. per Hematology oncologist, rest of the workup as outpatient (4) Hypertension Current Visit: Yes Status: Chronic Qualifiers: Hypertension type: essential hypertension Qualified Code(s): I10 - Essential (primary) hypertension Plan to address problem: Blood pressures are stable (5) Lupus Current Visit: Yes Status: Chronic Qualifiers: Systemic lupus erythematosus type: unspecified Plan to address problem: Was on Plaqeunil and Prednisone. As per primary team (6) Hyperthyroidism Current Visit: No Status: Acute Plan to address problem: On Tapazole at home Subjective Date of service: 11/07/17 Principal diagnosis: ARF/CKD Acute Hemolytic anemia Interval history: Patient seen sitting up in bed. States feeling ok. Objective - Vital Signs Vital signs: Vital Signs - 12hr 11/07/17 11/07/17 11/07/17 05:05 08:22 08:25 Temperature 97.8 F 98.4 F Pulse Rate 67 63 Respiratory 18 18 16 Rate Blood Pressure 121/69 Blood Pressure 138/83 [Right] O2 Sat by Pulse 100 98 Oximetry - General Appearance General appearance: well-developed, well-nourished, appears stated age EENT: ATNC, PERRL, hearing intact, vision intact Neck: no JVD, supple Respiratory: Present: Decreased Breath Sounds Cardiology: regular, S1S2 Gastrointestinal: normoactive bowel sounds Integumentary: warm and dry Neurologic: alert and oriented x3 Musculoskeletal: other (No edema) - Lab 11/07/17 05:36 11/07/17 05:36 Most recent lab results Calcium 8.5 mg/dL (8.4-10.2) 11/07/17 05:36 Phosphorus 6.10 mg/dL (2.5-4.5) H 11/06/17 05:20 Urine Creatinine 87.5 mg/dL (0.1-20.0) H 10/25/17 21:44 Urine Sodium 56 mmol/L 10/25/17 21:44 Urine Total Protein 868 mg/dL (5-11.8) H 10/25/17 21:44
[2017-11-07] MEDS: PROCRIT SUB-Q SCH (14:49)
[2017-11-07] MEDS: THERAGRAN Tab PO SCH (14:57)
[2017-11-07] MEDS: CELLCEPT PO SCH ×2 (14:57→22:17)
[2017-11-07] MEDS: TAPAZOLE PO SCH (14:57)
[2017-11-07] MEDS: DELTASONE PO SCH (14:58)
[2017-11-07] MEDS: ROCALTROL PO SCH (14:58)
[2017-11-07] MEDS: NORVASC PO SCH (14:59)
[2017-11-07] MEDS: PLAQUENIL PO SCH (14:59)
[2017-11-07] MEDS: PERCOCET 5/325 PO PRN (20:28)
[2017-11-07] MEDS: ROXICODONE PO PRN (20:31)
[2017-11-08] MEDS: DILAUDID IV PRN ×5 (00:19→22:39)
[2017-11-08] MEDS: CATAPRES PO SCH ×4 (00:39→18:24)
[2017-11-08] MEDS: ROXICODONE PO PRN (05:26)
[2017-11-08] MEDS: PERCOCET 5/325 PO PRN (05:27)
[2017-11-08 07:05] LABS: Hematocrit 23.2 % (35.5-45.6); Hemoglobin 7.8 gm/dl (11.8-15.2); Mean Corpuscular HGB Conc 34 % (32-34); Mean Corpuscular Hemoglobin 30 pg (28-32); Mean Corpuscular Volume 90 fl (84-94); Platelet Count 160 K/mm3 (140-440); Red Blood Count 2.58 M/mm3 (3.65-5.03); Red Cell Distribution Width 15.1 % (13.2-15.2); White Blood Count 14.9 K/mm3 (4.5-11.0)
[2017-11-08 07:24] LABS: Calcium 8.6 mg/dL (8.4-10.2); Chloride 93.8 mmol/L (98-107); Potassium 5.1 mmol/L (3.6-5.0)
[2017-11-08 08:39] LABS: Anisocytosis 1+; Basophils % (Manual) 0 % (0.0-1.8); Blastocytes % (Manual) 0 %; Diff Status Complete; Eosinophils % (Manual) 0 % (0.0-4.3); Macrocytosis Rare; Platelet Estimate Consistent w Auto
--- NOTE | 2017-11-08 10:34 | Progress Note ---
Assessment and Plan Assessment and plan: -- Sepsis sec to Enterobacter aerogens UTI; continue Levaquin renal dose , ID consultation. 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/2017,by senior oracle database developer Patient would benefit by rheumatology evaluation not available in this hospital Patient's symptoms significantly improved, no indication for hospital to hospital transfer, however advised to see a electronic transaction implementer upon discharge Will Try to contact patient's private electronic transaction implementer and discuss --DVT prophylaxis, Heparin subcutaneous Dispo: Outpatient HD scheduling per case management History Interval history: Patient seen and examined medical records reviewed Schedule for right IJ permacath placement Patient feels better no new complaints Vital signs reviewed Hospitalist Physical - Constitutional Vitals: Temp Pulse Resp BP Pulse Ox 98.2 F 82 20 149/102 99 11/08/17 07:54 11/08/17 07:54 11/08/17 07:54 11/08/17 07:54 11/08/17 07:54 General appearance: Present: no acute distress, well-nourished - EENT Eyes: Present: PERRL, EOM intact - Neck Neck: Present: supple, normal ROM - Respiratory Respiratory effort: normal Respiratory: bilateral: diminished, negative: rales, rhonchi, wheezing - Cardiovascular Rhythm: regular Heart Sounds: Present: S1 & S2 - Extremities Extremities: no ischemia, No edema Peripheral Pulses: within normal limits - Abdominal General gastrointestinal: soft, non-tender, non-distended, normal bowel sounds - Integumentary Integumentary: Present: clear, warm - Psychiatric Psychiatric: appropriate mood/affect, cooperative - Neurologic Neurologic: CNII-XII intact, moves all extremities Results - Labs CBC & Chem 7: 11/08/17 06:43 11/08/17 06:43 Labs: Laboratory Last Values WBC 14.9 K/mm3 (4.5-11.0) H 11/08/17 06:43 RBC 2.58 M/mm3 (3.65-5.03) L 11/08/17 06:43 Hgb 7.8 gm/dl (11.8-15.2) L 11/08/17 06:43 Hct 23.2 % (35.5-45.6) L 11/08/17 06:43 MCV 90 fl (84-94) 11/08/17 06:43 MCH 30 pg (28-32) 11/08/17 06:43 MCHC 34 % (32-34) 11/08/17 06:43 RDW 15.1 % (13.2-15.2) 11/08/17 06:43 Plt Count 160 K/mm3 (140-440) 11/08/17 06:43 Lymph % (Auto) 8.5 % (13.4-35.0) L 11/07/17 05:36 [place] % (Auto) 7.3 % (0.0-7.3) 11/07/17 05:36 Eos % (Auto) 0.0 % (0.0-4.3) 11/07/17 05:36 Baso % (Auto) 0.0 % (0.0-1.8) 11/07/17 05:36 Lymph # 1.1 K/mm3 (1.2-5.4) L 11/07/17 05:36 [place] # 0.9 K/mm3 (0.0-0.8) H 11/07/17 05:36 Eos # 0.0 K/mm3 (0.0-0.4) 11/07/17 05:36 Baso # 0.0 K/mm3 (0.0-0.1) 11/07/17 05:36 Add Manual Diff Complete 11/08/17 06:43 Total Counted 100 11/08/17 06:43 Seg Neutrophils % Unix Manager 11/08/17 06:43 Seg Neuts % (Manual) 84.0 % (40.0-70.0) H 11/08/17 06:43 Band Neutrophils % 7.0 % 11/08/17 06:43 Lymphocytes % (Manual) 5.0 % (13.4-35.0) L 11/08/17 06:43 Reactive Lymphs % (Man) 0 % 11/08/17 06:43 Monocytes % (Manual) 4.0 % (0.0-7.3) 11/08/17 06:43 Eosinophils % (Manual) 0 % (0.0-4.3) 11/08/17 06:43 Basophils % (Manual) 0 % (0.0-1.8) 11/08/17 06:43 Metamyelocytes % 0 % 11/08/17 06:43 Myelocytes % 0 % 11/08/17 06:43 Promyelocytes % 0 % 11/08/17 06:43 Blast Cells % 0 % 11/08/17 06:43 Nucleated RBC % Not Reportable 11/08/17 06:43 Seg Neutrophils # 10.9 K/mm3 (1.8-7.7) H 11/07/17 05:36 Seg Neutrophils # Man 12.5 K/mm3 (1.8-7.7) H 11/08/17 06:43 Band Neutrophils # 1.0 K/mm3 11/08/17 06:43 Lymphocytes # (Manual) 0.7 K/mm3 (1.2-5.4) L 11/08/17 06:43 Abs React Lymphs (Man) 0.0 K/mm3 11/08/17 06:43 Monocytes # (Manual) 0.6 K/mm3 (0.0-0.8) 11/08/17 06:43 Eosinophils # (Manual) 0.0 K/mm3 (0.0-0.4) 11/08/17 06:43 Basophils # (Manual) 0.0 K/mm3 (0.0-0.1) 11/08/17 06:43 Metamyelocytes # 0.0 K/mm3 11/08/17 06:43 Myelocytes # 0.0 K/mm3 11/08/17 06:43 Promyelocytes # 0.0 K/mm3 11/08/17 06:43 Blast Cells # 0.0 K/mm3 11/08/17 06:43 WBC Morphology Not Reportable 11/08/17 06:43 Hypersegmented Neuts Not Reportable 11/08/17 06:43 Hyposegmented Neuts Not Reportable 11/08/17 06:43 Hypogranular Neuts Not Reportable 11/08/17 06:43 Smudge Cells Not Reportable 11/08/17 06:43 Toxic Granulation Not Reportable 11/08/17 06:43 Toxic Vacuolation Not Reportable 11/08/17 06:43 Dohle Bodies Not Reportable 11/08/17 06:43 Pelger-Huet Anomaly Not Reportable 11/08/17 06:43 Kam Rods Not Reportable 11/08/17 06:43 Platelet Estimate Consistent w auto 11/08/17 06:43 Clumped Platelets Not Reportable 11/08/17 06:43 Plt Clumps, EDTA Not Reportable 11/08/17 06:43 Large Platelets Not Reportable 11/08/17 06:43 Giant Platelets Not Reportable 11/08/17 06:43 Platelet Satelliting Not Reportable 11/08/17 06:43 Plt Morphology Comment Not Reportable 11/08/17 06:43 RBC Morphology Not Reportable 11/08/17 06:43 Dimorphic RBCs Not Reportable 11/08/17 06:43 Polychromasia Not Reportable 11/08/17 06:43 Hypochromasia Not Reportable 11/08/17 06:43 Poikilocytosis Not Reportable 11/08/17 06:43 Anisocytosis 1+ 11/08/17 06:43 Microcytosis Not Reportable 11/08/17 06:43 Macrocytosis Rare 11/08/17 06:43 Spherocytes Not Reportable 11/08/17 06:43 Pappenheimer Bodies Not Reportable 11/08/17 06:43 Sickle Cells Not Reportable 11/08/17 06:43 Target Cells Not Reportable 11/08/17 06:43 Tear Drop Cells Not Reportable 11/08/17 06:43 Ovalocytes Not Reportable 11/08/17 06:43 Helmet Cells Not Reportable 11/08/17 06:43 [place] Bodies Not Reportable 11/08/17 06:43 [place] Rings Not Reportable 11/08/17 06:43 [place] Cells Not Reportable 11/08/17 06:43 Bite Cells Not Reportable 11/08/17 06:43 Crenated Cell Not Reportable 11/08/17 06:43 Elliptocytes Not Reportable 11/08/17 06:43 Acanthocytes (Spur) Not Reportable 11/08/17 06:43 Rouleaux Not Reportable 11/08/17 06:43 Hemoglobin C Crystals Not Reportable 11/08/17 06:43 Schistocytes Not Reportable 11/08/17 06:43 Malaria parasites Not Reportable 11/08/17 06:43 ESR 42 mm/Hr (0-20) 10/27/17 05:15 Percent Retic 0.89 % (0.78-2.58) 10/27/17 17:16 Nasir Bodies Not Reportable 11/08/17 06:43 Haptoglobin 88 mg/dL (43-212) 10/26/17 13:46 Hem Pathologist Commnt No 11/08/17 06:43 PT 13.0 Sec. (12.2-14.9) 10/31/17 04:56 INR 0.94 (0.87-1.13) 10/31/17 04:56 APTT 30.9 Sec. (24.2-36.6) 10/25/17 15:28 Sodium 134 mmol/L (137-145) L 11/08/17 06:43 Potassium 5.1 mmol/L (3.6-5.0) H 11/08/17 06:43 Chloride 93.8 mmol/L (98-107) L 11/08/17 06:43 Carbon Dioxide 27 mmol/L (22-30) 11/08/17 06:43 Anion Gap 18 mmol/L 11/08/17 06:43 BUN 43 mg/dL (9-20) H 11/08/17 06:43 Creatinine 5.3 mg/dL (0.8-1.5) H 11/08/17 06:43 Estimated GFR 16 ml/min 11/08/17 06:43 BUN/Creatinine Ratio 8 % 11/08/17 06:43 Glucose 102 mg/dL (75-100) H 11/08/17 06:43 POC Glucose 117 (70-105) H 10/25/17 16:33 Hemoglobin A1c 6.9 % (4-6) H 10/25/17 14:37 Calcium 8.6 mg/dL (8.4-10.2) 11/08/17 06:43 Phosphorus 6.10 mg/dL (2.5-4.5) H 11/06/17 05:20 Iron 63 ug/dL (49-181) 10/26/17 13:46 TIBC 144 mcg/dL (250-450) L 10/26/17 13:46 % Saturation 43.75 % 10/26/17 13:46 Transferrin 130 mg/dl (180-329) L 10/26/17 13:46 Ferritin 1014.0 ng/mL (13.0-400.0) H 10/26/17 13:46 Total Bilirubin 0.20 mg/dL (0.1-1.2) 11/01/17 05:26 AST 21 units/L (5-40) 11/01/17 05:26 ALT 44 units/L (7-56) 11/01/17 05:26 Alkaline Phosphatase 50 units/L (35-129) 11/01/17 05:26 Lactate Dehydrogenase 237 units/L (91-180) H 11/01/17 05:26 Serum Total Protein 5.8 g/dL (6.1-8.1) L 10/27/17 17:10 Total Protein 5.2 g/dL (6.3-8.2) L 11/01/17 05:26 Albumin 2.7 g/dL (3.9-5) L 11/01/17 05:26 Albumin/Globulin Ratio 1.1 % 11/01/17 05:26 Lsapx-3-Rbmantwun 0.4 g/dL (0.2-0.3) H 10/27/17 17:10 Lhxcl-5-Ngukxzzji 0.7 g/dL (0.5-0.9) 10/27/17 17:10 Beta Globulins 0.4 g/dL (0.2-0.5) 10/27/17 17:10 Gamma Globulins 1.2 g/dL (0.8-1.7) 10/27/17 17:10 Abnorm Protein Band 1 see below 10/27/17 17:10 PEP Interpretation see below H 10/27/17 17:10 Amylase 247 units/L (27-131) H 10/25/17 14:37 Lipase 152 units/L (13-60) H 10/25/17 14:37 Vitamin B12 761.2 pg/mL (211-911) 10/27/17 17:17 25-OH Vitamin D Total 17 ng/mL (30-100) L 10/29/17 05:10 Folate > 20.00 ng/mL (7.3-26.0) 10/26/17 13:46 PTH Intact 516.1 pg/mL (15-65) H 10/28/17 08:07 Urine Color Margo (Yellow) 11/04/17 05:13 Urine Turbidity Turbid (Clear) 11/04/17 05:13 Urine pH 5.0 (5.0-7.0) 11/04/17 05:13 Ur Specific [place] 1.018 (1.003-1.030) 11/04/17 05:13 Urine Protein >500 mg/dL (Negative) 11/04/17 05:13 Urine Glucose (UA) Neg mg/dL (Negative) 11/04/17 05:13 Urine Ketones Neg mg/dL (Negative) 11/04/17 05:13 Urine Blood Sm (Negative) 11/04/17 05:13 Urine Nitrite Neg (Negative) 11/04/17 05:13 Urine Bilirubin Neg (Negative) 11/04/17 05:13 Urine Urobilinogen < 2.0 mg/dL (<2.0) 11/04/17 05:13 Ur Leukocyte Esterase Lg (Negative) 11/04/17 05:13 Urine WBC (Auto) 93.0 /HPF (0.0-6.0) H 11/04/17 05:13 Urine RBC (Auto) 38.0 /HPF (0.0-6.0) 11/04/17 05:13 U Epithel Cells (Auto) 3.0 /HPF (0-13.0) 11/04/17 05:13 Urine Bacteria (Auto) 2+ /HPF (Negative) 11/04/17 05:13 Urine WBC Clumps 1+ /HPF 11/04/17 05:13 Amorphous Crystals Few 11/04/17 05:13 Hyaline Casts 30 /LPF 11/04/17 05:13 Urine Mucus Few /HPF 11/04/17 05:13 Urine Eosinophils 2% (None Seen) 10/25/17 21:44 Urine Creatinine 87.5 mg/dL (0.1-20.0) H 10/25/17 21:44 Protein/Creatinin Ratio 9.92 10/25/17 21:44 Urine Sodium 56 mmol/L 10/25/17 21:44 Urine Total Protein 868 mg/dL (5-11.8) H 10/25/17 21:44 YAMILET Screen Positive (Negative) H 10/25/17 16:22 YAMILET Titer 1:640 (Negative) H 10/25/17 16:22 YAMILET Pattern Speckled 10/25/17 16:22 Proteinase 3 (PR3) Ab <1.0 AI (<1.0) 10/25/17 16:22 Myeloperoxidase Ab <1.0 AI (<1.0) 10/25/17 16:22 Double Strand DNA Ab 39 IU/mL (<=4) H 10/25/17 16:22 Glomerular Base Mem IgG <1.0 AI (<1.0) 10/25/17 16:22 Complement C3 <15 mg/dL (90-180) L 10/25/17 16:22 Complement C4 27 mg/dL (16-47) 10/25/17 16:22 Hep Bs Antigen Non-reactive (Negative) 10/25/17 16:31 Hepatitis C Antibody Non-reactive (NonReactive) 10/25/17 16:30 HIV 1&2 Antibody Rapid Non react (Non React) 10/25/17 16:22 HIV P24 Antigen Non react (Non React) 10/25/17 16:22 Schistocytes Smear Rare 10/27/17 17:16 Miscellaneous Test Flexitest 1 10/27/17 08:30 Blood Type B POSITIVE 10/31/17 00:56 Antibody Screen Negative 10/31/17 00:56 Crossmatch See Detail 10/31/17 00:56
--- NOTE | 2017-11-08 10:38 | Progress Note ---
Assessment and Plan (1) End stage kidney disease Current Visit: Yes Status: Acute Plan to address problem: ESRD secondary to Hypertensive Nephrosclerosis and Lupus Nephritis no indication for HD today cont prednisone 60 mg qday and cellcept 1500 mg BID, patient will need rheum jose eduardo Greene reconsulted for permcath placement , case management consulted for for outpatient dialysis placement Avoid Nephrotoxic agents Renally dose medications Monitor I/O's (2) Hyperkalemia Current Visit: Yes Status: Acute Plan to address problem: Resolved (3) Anemia Current Visit: Yes Status: Acute Plan to address problem: Received 3 cycles of plasmapheresis. per Hematology oncologist, rest of the workup as outpatient (4) Hypertension Current Visit: Yes Status: Chronic Qualifiers: Hypertension type: essential hypertension Qualified Code(s): I10 - Essential (primary) hypertension Plan to address problem: Blood pressures are stable (5) Lupus Current Visit: Yes Status: Chronic Qualifiers: Systemic lupus erythematosus type: unspecified Plan to address problem: on cellcept and prednisone Subjective Date of service: 11/08/17 Principal diagnosis: ARF/CKD Acute Hemolytic anemia Interval history: tolerated HD well yesterday Objective - Vital Signs Vital signs: Vital Signs - 12hr 11/08/17 11/08/17 11/08/17 00:10 00:39 05:16 Temperature 98.4 F Pulse Rate 98 H 98 H Respiratory 16 Rate Blood Pressure 163/102 163/102 176/105 O2 Sat by Pulse 100 Oximetry 11/08/17 07:54 Temperature 98.2 F Pulse Rate 82 Respiratory 20 Rate Blood Pressure 149/102 O2 Sat by Pulse 99 Oximetry - General Appearance General appearance: well-developed, well-nourished, appears stated age EENT: ATNC, PERRL, mucous membranes moist Neck: no JVD, no carotid bruit Respiratory: Present: Clear to Ascultation. Absent: Rales, Ronchi Cardiology: regular, S1S2 Gastrointestinal: normoactive bowel sounds, no tenderness, no distended Integumentary: no rash, warm and dry Neurologic: no focal deficit, no asterixis, alert and oriented x3 Musculoskeletal: other (no edema in BLE) Psychiatric: mood/affect appropriate, cooperative - Lab 11/08/17 06:43 11/08/17 06:43 Most recent lab results Calcium 8.6 mg/dL (8.4-10.2) 11/08/17 06:43 Phosphorus 6.10 mg/dL (2.5-4.5) H 11/06/17 05:20 Urine Creatinine 87.5 mg/dL (0.1-20.0) H 10/25/17 21:44 Urine Sodium 56 mmol/L 10/25/17 21:44 Urine Total Protein 868 mg/dL (5-11.8) H 10/25/17 21:44
[2017-11-08] MEDS: THERAGRAN Tab PO SCH (11:06)
[2017-11-08] MEDS: RENVELA PO SCH ×3 (11:06→19:26)
[2017-11-08] MEDS: HEPARIN SUB-Q SCH ×2 (11:06→22:39)
[2017-11-08] MEDS: TAPAZOLE PO SCH (11:06)
[2017-11-08] MEDS: DELTASONE PO SCH (11:06)
[2017-11-08] MEDS: NORVASC PO SCH (11:06)
[2017-11-08] MEDS: PLAQUENIL PO SCH (11:06)
[2017-11-08] MEDS: LEVAQUIN PO SCH (14:36)
[2017-11-08] MEDS: CELLCEPT PO SCH ×2 (14:49→22:39)
[2017-11-08] MEDS: ROCALTROL PO SCH (14:50)
[2017-11-08] MEDS ORDERED: LEVAQUIN 750MG/150ML 750 MG/150 ML BAG IV SCH (15:00)
[2017-11-08] MEDS ORDERED: HEPARIN/NS 5000 UNIT/500ML(CATH LAB) 500 ML IR ONE (15:29)
[2017-11-08] MEDS: XYLOCAINE 2% INFILTRATI ONE ×2 (17:00→17:06)
--- NOTE | 2017-11-08 17:03 | Hem/Onc Progress Note ---
Assessment and Plan - Patient Problems (1) Anemia Current Visit: Yes Status: Acute Plan to address problem: Needs outpatient follow up. Subjective Date of service: 11/08/17 Interval history: Events noted. Kidney biopsy noted Objective - Constitutional Vitals: Last Vital Signs Temp 98.2 F 11/08/17 07:54 Pulse 80 11/08/17 14:53 Resp 20 11/08/17 07:54 BP 141/90 11/08/17 14:46 Pulse Ox 99 11/08/17 07:54 - Labs Lab Results: Laboratory Results - last 24 hr 11/08/17 11/08/17 06:43 06:43 WBC 14.9 H RBC 2.58 L Hgb 7.8 L Hct 23.2 L MCV 90 MCH 30 MCHC 34 RDW 15.1 Plt Count 160 Add Manual Diff Complete Total Counted 100 Seg Neutrophils % Fire Official Seg Neuts % (Manual) 84.0 H Band Neutrophils % 7.0 Lymphocytes % (Manual) 5.0 L Reactive Lymphs % (Man) 0 Monocytes % (Manual) 4.0 Eosinophils % (Manual) 0 Basophils % (Manual) 0 Metamyelocytes % 0 Myelocytes % 0 Promyelocytes % 0 Blast Cells % 0 Nucleated RBC % Not Reportable Seg Neutrophils # Man 12.5 H Band Neutrophils # 1.0 Lymphocytes # (Manual) 0.7 L Abs React Lymphs (Man) 0.0 Monocytes # (Manual) 0.6 Eosinophils # (Manual) 0.0 Basophils # (Manual) 0.0 Metamyelocytes # 0.0 Myelocytes # 0.0 Promyelocytes # 0.0 Blast Cells # 0.0 WBC Morphology Not Reportable Hypersegmented Neuts Not Reportable Hyposegmented Neuts Not Reportable Hypogranular Neuts Not Reportable Smudge Cells Not Reportable Toxic Granulation Not Reportable Toxic Vacuolation Not Reportable Dohle Bodies Not Reportable Pelger-Huet Anomaly Not Reportable Kam Rods Not Reportable Platelet Estimate Consistent w auto Clumped Platelets Not Reportable Plt Clumps, EDTA Not Reportable Large Platelets Not Reportable Giant Platelets Not Reportable Platelet Satelliting Not Reportable Plt Morphology Comment Not Reportable RBC Morphology Not Reportable Dimorphic RBCs Not Reportable Polychromasia Not Reportable Hypochromasia Not Reportable Poikilocytosis Not Reportable Anisocytosis 1+ Microcytosis Not Reportable Macrocytosis Rare Spherocytes Not Reportable Pappenheimer Bodies Not Reportable Sickle Cells Not Reportable Target Cells Not Reportable Tear Drop Cells Not Reportable Ovalocytes Not Reportable Helmet Cells Not Reportable [place] Bodies Not Reportable [place] Rings Not Reportable [place] Cells Not Reportable Bite Cells Not Reportable Crenated Cell Not Reportable Elliptocytes Not Reportable Acanthocytes (Spur) Not Reportable Rouleaux Not Reportable Hemoglobin C Crystals Not Reportable Schistocytes Not Reportable Malaria parasites Not Reportable Nasir Bodies Not Reportable Hem Pathologist Commnt No Sodium 134 L Potassium 5.1 H Chloride 93.8 L Carbon Dioxide 27 Anion Gap 18 BUN 43 H Creatinine 5.3 H Estimated GFR 16 BUN/Creatinine Ratio 8 Glucose 102 H Calcium 8.6
[2017-11-08] MEDS: HEPARIN 10,000 UNITS/10 ML ONE ×2 (17:07→17:09)
--- NOTE | 2017-11-08 18:39 | Procedure Note ---
Date of procedure: 11/08/17 Pre-op diagnosis: ESRD Post-op diagnosis: same Procedure: Procedure: Ultrasound-guided ccess of right IJ Vein, PLacement of right IJ Permacath Description of procedure: Patient was brought to the bundle tier and labeler and placed on the operating table. A 'time out' was performed and the right neck and chest were prepped and draped in standard surgical fashion. On ultrasound the right IJ vein was compressible with no thrombus. I used 1% lidocaine for local. The vein was then access under ultrasound followed by wire. The wire was seen in the IJ vein. The catheter was brought onto the field. After local for the right chest and neck, the catheter was tunneled from the chest to the right neck access area. Under fluoroscopy the wire was seen in the RV, and the 16F sheath was placed over the wire on fluoroscopy into the SVC. The catheter was placed thru the sheath and the sheath removed. The tip of the catheter was in the RA with no kinks in the catheter. All ports withdrew venous blood and all flushed easily. The ports were then infused with heparin solution 1.8 cc into each port. The neck and catheter were sutured with prolene followed by sterile dressings. The patient tolerated the procedure well and there were no complications. Anesthesia: local Surgeon: MATEO MICHAELS Estimated blood loss: minimal Pathology: none Condition: stable Disposition: floor
[2017-11-08] MEDS ORDERED: NACL 0.9% 100 ML IV PRN (22:13)
[2017-11-09] MEDS: CATAPRES PO SCH (03:18)
[2017-11-09] MEDS: DILAUDID IV PRN ×2 (03:39→09:13)
[2017-11-09 07:52] LABS: Basophils % (Auto) 0.1 % (0.0-1.8); Hematocrit 23.6 % (35.5-45.6); Mean Corpuscular HGB Conc 34 % (32-34); Mean Corpuscular Hemoglobin 31 pg (28-32); Mean Corpuscular Volume 90 fl (84-94); Platelet Count 150 K/mm3 (140-440); Red Blood Count 2.61 M/mm3 (3.65-5.03); Red Cell Distribution Width 16.6 % (13.2-15.2); White Blood Count 17.7 K/mm3 (4.5-11.0)
[2017-11-09 08:09] LABS: Calcium 8.6 mg/dL (8.4-10.2); Chloride 93.5 mmol/L (98-107); Potassium 5.4 mmol/L (3.6-5.0)
[2017-11-09] MEDS: DELTASONE PO SCH (09:14)
[2017-11-09] MEDS: TAPAZOLE PO SCH (09:14)
[2017-11-09] MEDS: RENVELA PO SCH ×3 (09:14→16:01)
[2017-11-09] MEDS: PLAQUENIL PO SCH (09:14)
[2017-11-09] MEDS: THERAGRAN Tab PO SCH (09:14)
[2017-11-09] MEDS ORDERED: NACL 0.9 (PRIMING MACHINE ONLY DIALYSIS) MC ONE (10:14)
[2017-11-09] MEDS: PROCRIT SUB-Q SCH (12:46)
--- NOTE | 2017-11-09 12:58 | Consultation ---
History of Present Illness - Reason for Consult Consult date: 11/09/17 UTI Requesting physician: DORON SOARES - History of Present Illness 31 year old male who presents with hsitory of HTN, Lupus on Plaquenil and Prednisone and Hyperthyroidism on Tapazole; admitted on 10/25/17 due to nausea and vomiting for several weeks. Denied any urinary symptoms. In the ED, initial temp 98, HR 113, R20, BP 143/95, WBC 10.7. UA was negative. He was found severely Hyperkalemic with potassium level of 7.6 and in severe renal failure with a GFR level of 7 ml/min and Severely Anemic with a HGB level of 4.9. His WBC went to 20K by 10/30-10/31 and another UA was done showed moderate LE, WBC 53. Urine cx grew Enterobacter. No fever. US kidneys showed diffuse increased echo luiza. Kidney bx showed crescentic GN. He was initiated on HD through Vas- Cath. Microbiology: Blood cultures: 11 09 ngtd Urine cultures: 11/04 Enterobacter Current Antimicrobials: Levaquin 11/08 Previous Antimicrobials: Past History Past Medical History: hypertension, renal failure, other (Lupus, Hyperthyroidism ) Past Surgical History: No surgical history Social history: no significant social history Family history: no significant family history Medications and Allergies Allergies Allergy/AdvReac Type Severity Reaction Status Date / Time amoxicillin Allergy Itching Verified 10/25/17 13:52 ibuprofen [From Motrin] Allergy Itching Verified 10/25/17 13:52 Home Medications Medication Instructions Recorded Confirmed Last Taken Type Acetaminophen/Diphenhydramine 1 each PO QHS 10/25/17 10/25/17 10/24/17 History [Tylenol Pm Ex-Strength Caplet] Multivitamin Tab [Multiple Vitamin 1 each PO QDAY 10/25/17 10/25/17 10/24/17 History TAB (Theragran)] Calcitriol [Rocaltrol] 0.5 mcg PO QDAY #30 capsule 11/02/17 Unknown Rx Hydroxychloroquine [Plaquenil] 400 mg PO QDAY #60 tablet 11/02/17 Unknown Rx Methimazole [Tapazole] 5 mg PO QDAY #30 tablet 11/02/17 Unknown Rx Sevelamer Carbonate [Renvela] 1,600 mg PO AC #120 tablet 11/02/17 Unknown Rx amLODIPine [Norvasc] 10 mg PO DAILY #30 tablet 11/02/17 Unknown Rx cloNIDine [Catapres] 0.1 mg PO Q8H #90 tablet 11/02/17 Unknown Rx oxyCODONE /ACETAMINOPHEN [Percocet 1 tab PO Q6H PRN #12 tablet 11/02/17 Unknown Rx 5/325 mg] predniSONE [Deltasone] 60 mg PO QDAY #60 tablet 11/02/17 Unknown Rx Active Meds: Active Medications Acetaminophen (Tylenol) 650 mg PO Q4H PRN PRN Reason: Pain MILD(1-3)/Fever >100.5/HAYNES Last Admin: 10/27/17 21:13 Dose: 650 mg Amlodipine Besylate (Norvasc) 10 mg PO DAILY [facility] Last Admin: 11/08/17 11:06 Dose: 10 mg Bisacodyl (Dulcolax) 10 mg FL QDAY PRN PRN Reason: Constipation unrelieved by MOM Calcitriol (Rocaltrol) 0.5 mcg PO QDAY [facility] Last Admin: 11/08/17 14:50 Dose: 0.5 mcg Clonidine HCl (Catapres) 0.1 mg PO Q8H [facility] Last Admin: 11/09/17 03:18 Dose: 0.1 mg Diphenhydramine HCl (Benadryl) 25 mg PO Q6H PRN PRN Reason: Itching Last Admin: 11/03/17 23:43 Dose: 25 mg Epoetin Nito (Procrit) 10,000 unit SUB-Q MOWEFR [facility] Last Admin: 11/09/17 12:46 Dose: 10,000 unit Heparin Sodium (Porcine) (Heparin) 5,000 unit SUB-Q Q12HR [facility] Last Admin: 11/08/17 22:39 Dose: 5,000 unit Heparin Sodium (Porcine) (Heparin) 5,000 unit IV VELASQUEZ PRN PRN Reason: hemodialysis Last Admin: 11/07/17 13:30 Dose: 5,000 unit Heparin Sodium (Porcine) (Heparin 10,000 Units/10 Ml) 20,000 unit IV Q24H PRN PRN Reason: PLASMA Hydromorphone HCl (Dilaudid) 1 mg IV Q3H PRN PRN Reason: Pain , Severe (7-10) Last Admin: 11/09/17 09:13 Dose: 1 mg Hydroxychloroquine Sulfate (Plaquenil) 400 mg PO QDAY [facility] Last Admin: 11/09/17 09:14 Dose: 400 mg Sodium Chloride (Nacl 0.9% 500 Ml) 500 mls @ 50 mls/hr IV DIRECT [facility] Last Admin: 10/26/17 03:25 Dose: 50 mls/hr Sodium Chloride (Nacl 0.9%) 100 mls @ 999 mls/hr IV VELASQUEZ PRN PRN Reason: Hypotension Levofloxacin (Levaquin) 500 mg PO Q48H [facility] Stop: 11/12/17 15:01 Last Admin: 11/08/17 14:36 Dose: 500 mg Magnesium Hydroxide (Milk Of Magnesia) 30 ml PO Q4H PRN PRN Reason: Constipation Methimazole (Tapazole) 5 mg PO QDAY [facility] Last Admin: 11/09/17 09:14 Dose: 5 mg Multivitamins (Theragran Tab) 1 each PO QDAY [facility] Last Admin: 11/09/17 09:14 Dose: 1 each Mycophenolate Mofetil (Cellcept) 1,500 mg PO BID [facility] Last Admin: 11/08/17 22:39 Dose: 1,500 mg Ondansetron HCl (Zofran) 4 mg IV Q8H PRN PRN Reason: N/V unrelieved by Adis Last Admin: 10/27/17 10:26 Dose: 4 mg Oxycodone HCl (Roxicodone) 5 mg PO Q6H PRN PRN Reason: Pain, Moderate (4-6) Last Admin: 11/08/17 05:26 Dose: 5 mg Oxycodone/Acetaminophen (Percocet 5/325) 1 tab PO Q6H PRN PRN Reason: Pain, Moderate (4-6) Last Admin: 11/08/17 05:27 Dose: 1 tab Prednisone (Deltasone) 60 mg PO QDAY [facility] Last Admin: 11/09/17 09:14 Dose: 60 mg Sevelamer Carbonate (Renvela) 1,600 mg PO [facility] Last Admin: 11/09/17 09:14 Dose: 1,600 mg Review of Systems All systems: negative (as per HPI rest ROS neg) Physical Examination - Physical Exam Narrative exam: General appearance: Alert in NAD, conversant Eyes: anicteric sclerae, moist conjunctivae; no lid-lag; PERRLA HENT: Atraumatic; oropharynx clear Neck: Trachea midline; supple, no thyromegaly or lymphadenopathy Lungs: CTA CV: RRR Abdomen: Soft, non-tender; no masses or hepatosplenomegaly Extremities: No peripheral edema or extremity lymphadenopathy Skin: Normal temperature, turgor and texture; no rash, ulcers or subcutaneous nodules Psych: Appropriate affect, alert and oriented to person, place and time. Neuro: alert and oriented x 3. Moving all extermities Lines: right fem HD - Constitutional Vitals: Vital Signs Temp Pulse Resp BP Pulse Ox 98.1 F 79 18 143/88 99 11/09/17 11:30 11/09/17 12:30 11/09/17 11:30 11/09/17 12:30 11/09/17 07:41 Temperature -Last 24 Hours Temperature 98.1 F Temperature 98.0 F Temperature 98.3 F Results - Labs CBC & Chem 7: 11/09/17 06:50 11/09/17 06:50 Labs: Abnormal lab results 11/09/17 11/09/17 Range/Units 06:50 06:50 WBC 17.7 H (4.5-11.0) K/mm3 RBC 2.61 L (3.65-5.03) M/mm3 Hgb 8.0 L (11.8-15.2) gm/dl Hct 23.6 L (35.5-45.6) % RDW 16.6 H (13.2-15.2) % Lymph % (Auto) 7.6 L (13.4-35.0) % Jewell % (Auto) 7.6 H (0.0-7.3) % [place]ell # 1.4 H (0.0-0.8) K/mm3 Seg Neutrophils % 84.7 H (40.0-70.0) % Seg Neutrophils # 15.0 H (1.8-7.7) K/mm3 Sodium 136 L (137-145) mmol/L Potassium 5.4 H (3.6-5.0) mmol/L Chloride 93.5 L (98-107) mmol/L BUN 68 H (9-20) mg/dL Creatinine 6.5 H (0.8-1.5) mg/dL Assessment and Plan Assessment: 1) Leukocytosis: from steroids versus UTI 2) UTI: not present on admission due to Enterobacter 3) Lupus 4) Acute on chronic kidney disease /to end-stage renal disease - Class III lupus per renal biopsy, CellCept 1500 twice a day induction started on 2016, 5) Lupus, On Plaquenil and corticosteroids 6) Penicillin allergy Plan: -follow-up blood cultures -started on levaquin Q48 h total [address] Soares for your consultation, will follow up with you. Kat Vallecillo MD Infectious Diseases Specialist [facility] M [phone] O [phone]
--- NOTE | 2017-11-09 14:31 | Progress Note ---
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 Cr in the past was 3.5. Now with worsening renal failure. -YAMILET, ANCA, Anti-DsDNA, Complements, Anti GBM, Hep panel, HIV, Urine PCR ordered -Hep Panel, HIV -ve. ANCA/Anti GBM -ve as well. C3 low, YAMILET and AntiDsDNA elevated. -Urine PCR shows nephrotic range proteinuria. UA did not have red cells. Repeat UA showed red cells. -Renal US shows CKD, no hydronephrosis. -3 day pulse of Solumedrol 1 gm daily IV started 10/26 - 10/28. Now on prednisone 60 mg daily. -s/p CT guided Renal bx 10/31/17 which showed Class 3 lupus with crescents with acute and chronic changes, also had some ATN. -Initiated on Cellcept induction 1500 mg BID on 11/03/17. Will need induction at that dose for 6 months after which dose can be descreased to continue for total of 2 years. -Pt not a good candidate for cytoxan given young age, R&B of cytoxan were discussed with him and he refused it. -Pt should see Rheumatology. -CM working on Placing patient at [facility]. -s/p Rt IJ TDC by Vascular Surgery. -Will dc Fem VC. 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 s/p 3 cycles of plasma exchange. -Transfusion PRN per primary and hemonc -[id number] antibody ordered. Urinary tract infection: Leukocytosis: -UA suggests UTI vs contamination -Urine Cx ordered -Levaquin course started -White count increasing. Could be due to steroids vs infection. -Dr John ID consulted. Blood Cx ordered. 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 Hyperphosphatemia: -Started renvella WMs. -Monitor phos Essential Hypertension: -Titrate BP meds PRN to keep SBP <130, hydrazine started. -Avoid Salomon inh/ARBs SLE: -Can continue home meds -Per primary Plan d/w HD RN. Juan Angulo MD Nephrology, Hypertension, Dialysis, Transplantation Phone no: [phone] Subjective Date of service: 11/09/17 Principal diagnosis: ARF/CKD Acute Hemolytic anemia Interval history: Denies CP/SHOB. Seen on HD. Objective - Exam Narrative Exam: GE:[id number] HEENT: PERRLA Neck: No JVD Chest: CTAB CVS: RRR Abd: Soft/Nt/ND/BS+ Ext: No cce, Rt fem VC and Rt IJ TDC Psyche: Appropriate mood - Vital Signs Vital signs: Vital Signs - 12hr 11/09/17 11/09/17 11/09/17 03:18 07:41 09:13 Temperature 98.0 F Pulse Rate 80 73 Respiratory 16 18 Rate Blood Pressure 130/70 156/105 O2 Sat by Pulse 99 Oximetry 11/09/17 11/09/17 11/09/17 11:30 11:38 11:45 Temperature 98.1 F Pulse Rate 96 H 76 71 Respiratory 18 Rate Blood Pressure 166/94 157/93 156/97 O2 Sat by Pulse Oximetry 11/09/17 11/09/17 11/09/17 12:00 12:15 12:30 Temperature Pulse Rate 67 68 79 Respiratory Rate Blood Pressure 149/91 152/94 143/88 O2 Sat by Pulse Oximetry 11/09/17 11/09/17 12:45 13:00 Temperature Pulse Rate 73 70 Respiratory Rate Blood Pressure 137/91 140/86 O2 Sat by Pulse Oximetry - Lab 11/09/17 06:50 11/09/17 06:50 Most recent lab results Calcium 8.6 mg/dL (8.4-10.2) 11/09/17 06:50 Phosphorus 6.10 mg/dL (2.5-4.5) H 11/06/17 05:20 Urine Creatinine 87.5 mg/dL (0.1-20.0) H 10/25/17 21:44 Urine Sodium 56 mmol/L 10/25/17 21:44 Urine Total Protein 868 mg/dL (5-11.8) H 10/25/17 21:44
[2017-11-09] MEDS ORDERED: NACL 0.9% 100 ML IV PRN (15:26)
[2017-11-09] MEDS: ROCALTROL PO SCH (15:58)
[2017-11-09] MEDS: ROXICODONE PO PRN ×2 (15:58→22:29)
[2017-11-09] MEDS: CELLCEPT PO SCH ×2 (15:58→22:30)
[2017-11-09] MEDS: PERCOCET 5/325 PO PRN (16:00)
[2017-11-09] MEDS: NORVASC PO SCH (16:01)
--- NOTE | 2017-11-09 19:14 | Progress Note ---
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/2017,by outdoor adventure instructor Patient would benefit by rheumatology evaluation not available in this hospital Patient's symptoms significantly improved, no indication for hospital to hospital transfer, however advised to see a administrative technician upon discharge Will Try to contact patient's private administrative technician and discuss --DVT prophylaxis, Heparin subcutaneous Dispo: Outpatient HD scheduling per case management History Interval history: Patient seen and examined in hemodialysis unit Receiving dialysis, no new complaints Vital signs reviewed Hospitalist Physical - Constitutional Vitals: Temp Pulse Resp BP Pulse Ox 98.8 F 101 H 16 154/106 99 11/09/17 14:35 11/09/17 16:01 11/09/17 16:00 11/09/17 16:01 11/09/17 07:41 General appearance: Present: no acute distress, well-nourished - EENT Eyes: Present: PERRL, EOM intact - Neck Neck: Present: supple, normal ROM - Respiratory Respiratory effort: normal Respiratory: bilateral: diminished, negative: rales, rhonchi, wheezing - Cardiovascular Rhythm: regular Heart Sounds: Present: S1 & S2 - Extremities Extremities: no ischemia, No edema - Abdominal General gastrointestinal: soft, non-tender, non-distended, normal bowel sounds - Integumentary Integumentary: Present: clear, warm - Psychiatric Psychiatric: appropriate mood/affect, cooperative - Neurologic Neurologic: CNII-XII intact, moves all extremities Results - Labs CBC & Chem 7: 11/09/17 06:50 11/09/17 06:50 Labs: Laboratory Last Values WBC 17.7 K/mm3 (4.5-11.0) H 11/09/17 06:50 RBC 2.61 M/mm3 (3.65-5.03) L 11/09/17 06:50 Hgb 8.0 gm/dl (11.8-15.2) L 11/09/17 06:50 Hct 23.6 % (35.5-45.6) L 11/09/17 06:50 MCV 90 fl (84-94) 11/09/17 06:50 MCH 31 pg (28-32) 11/09/17 06:50 MCHC 34 % (32-34) 11/09/17 06:50 RDW 16.6 % (13.2-15.2) H 11/09/17 06:50 Plt Count 150 K/mm3 (140-440) 11/09/17 06:50 Lymph % (Auto) 7.6 % (13.4-35.0) L 11/09/17 06:50 [place] % (Auto) 7.6 % (0.0-7.3) H 11/09/17 06:50 Eos % (Auto) 0.0 % (0.0-4.3) 11/09/17 06:50 Baso % (Auto) 0.1 % (0.0-1.8) 11/09/17 06:50 Lymph # 1.3 K/mm3 (1.2-5.4) 11/09/17 06:50 [place] # 1.4 K/mm3 (0.0-0.8) H 11/09/17 06:50 Eos # 0.0 K/mm3 (0.0-0.4) 11/09/17 06:50 Baso # 0.0 K/mm3 (0.0-0.1) 11/09/17 06:50 Add Manual Diff Complete 11/08/17 06:43 Total Counted 100 11/08/17 06:43 Seg Neutrophils % 84.7 % (40.0-70.0) H 11/09/17 06:50 Seg Neuts % (Manual) 84.0 % (40.0-70.0) H 11/08/17 06:43 Band Neutrophils % 7.0 % 11/08/17 06:43 Lymphocytes % (Manual) 5.0 % (13.4-35.0) L 11/08/17 06:43 Reactive Lymphs % (Man) 0 % 11/08/17 06:43 Monocytes % (Manual) 4.0 % (0.0-7.3) 11/08/17 06:43 Eosinophils % (Manual) 0 % (0.0-4.3) 11/08/17 06:43 Basophils % (Manual) 0 % (0.0-1.8) 11/08/17 06:43 Metamyelocytes % 0 % 11/08/17 06:43 Myelocytes % 0 % 11/08/17 06:43 Promyelocytes % 0 % 11/08/17 06:43 Blast Cells % 0 % 11/08/17 06:43 Nucleated RBC % Not Reportable 11/08/17 06:43 Seg Neutrophils # 15.0 K/mm3 (1.8-7.7) H 11/09/17 06:50 Seg Neutrophils # Man 12.5 K/mm3 (1.8-7.7) H 11/08/17 06:43 Band Neutrophils # 1.0 K/mm3 11/08/17 06:43 Lymphocytes # (Manual) 0.7 K/mm3 (1.2-5.4) L 11/08/17 06:43 Abs React Lymphs (Man) 0.0 K/mm3 11/08/17 06:43 Monocytes # (Manual) 0.6 K/mm3 (0.0-0.8) 11/08/17 06:43 Eosinophils # (Manual) 0.0 K/mm3 (0.0-0.4) 11/08/17 06:43 Basophils # (Manual) 0.0 K/mm3 (0.0-0.1) 11/08/17 06:43 Metamyelocytes # 0.0 K/mm3 11/08/17 06:43 Myelocytes # 0.0 K/mm3 11/08/17 06:43 Promyelocytes # 0.0 K/mm3 11/08/17 06:43 Blast Cells # 0.0 K/mm3 11/08/17 06:43 WBC Morphology Not Reportable 11/08/17 06:43 Hypersegmented Neuts Not Reportable 11/08/17 06:43 Hyposegmented Neuts Not Reportable 11/08/17 06:43 Hypogranular Neuts Not Reportable 11/08/17 06:43 Smudge Cells Not Reportable 11/08/17 06:43 Toxic Granulation Not Reportable 11/08/17 06:43 Toxic Vacuolation Not Reportable 11/08/17 06:43 Dohle Bodies Not Reportable 11/08/17 06:43 Pelger-Huet Anomaly Not Reportable 11/08/17 06:43 Kam Rods Not Reportable 11/08/17 06:43 Platelet Estimate Consistent w auto 11/08/17 06:43 Clumped Platelets Not Reportable 11/08/17 06:43 Plt Clumps, EDTA Not Reportable 11/08/17 06:43 Large Platelets Not Reportable 11/08/17 06:43 Giant Platelets Not Reportable 11/08/17 06:43 Platelet Satelliting Not Reportable 11/08/17 06:43 Plt Morphology Comment Not Reportable 11/08/17 06:43 RBC Morphology Not Reportable 11/08/17 06:43 Dimorphic RBCs Not Reportable 11/08/17 06:43 Polychromasia Not Reportable 11/08/17 06:43 Hypochromasia Not Reportable 11/08/17 06:43 Poikilocytosis Not Reportable 11/08/17 06:43 Anisocytosis 1+ 11/08/17 06:43 Microcytosis Not Reportable 11/08/17 06:43 Macrocytosis Rare 11/08/17 06:43 Spherocytes Not Reportable 11/08/17 06:43 Pappenheimer Bodies Not Reportable 11/08/17 06:43 Sickle Cells Not Reportable 11/08/17 06:43 Target Cells Not Reportable 11/08/17 06:43 Tear Drop Cells Not Reportable 11/08/17 06:43 Ovalocytes Not Reportable 11/08/17 06:43 Helmet Cells Not Reportable 11/08/17 06:43 [place] Bodies Not Reportable 11/08/17 06:43 [place] Rings Not Reportable 11/08/17 06:43 [place] Cells Not Reportable 11/08/17 06:43 Bite Cells Not Reportable 11/08/17 06:43 Crenated Cell Not Reportable 11/08/17 06:43 Elliptocytes Not Reportable 11/08/17 06:43 Acanthocytes (Spur) Not Reportable 11/08/17 06:43 Rouleaux Not Reportable 11/08/17 06:43 Hemoglobin C Crystals Not Reportable 11/08/17 06:43 Schistocytes Not Reportable 11/08/17 06:43 Malaria parasites Not Reportable 11/08/17 06:43 ESR 42 mm/Hr (0-20) 10/27/17 05:15 Percent Retic 0.89 % (0.78-2.58) 10/27/17 17:16 Nasir Bodies Not Reportable 11/08/17 06:43 Haptoglobin 88 mg/dL (43-212) 10/26/17 13:46 Hem Pathologist Commnt No 11/08/17 06:43 PT 13.0 Sec. (12.2-14.9) 10/31/17 04:56 INR 0.94 (0.87-1.13) 10/31/17 04:56 APTT 30.9 Sec. (24.2-36.6) 10/25/17 15:28 Sodium 136 mmol/L (137-145) L 11/09/17 06:50 Potassium 5.4 mmol/L (3.6-5.0) H 11/09/17 06:50 Chloride 93.5 mmol/L (98-107) L 11/09/17 06:50 Carbon Dioxide 26 mmol/L (22-30) 11/09/17 06:50 Anion Gap 22 mmol/L 11/09/17 06:50 BUN 68 mg/dL (9-20) H 11/09/17 06:50 Creatinine 6.5 mg/dL (0.8-1.5) H 11/09/17 06:50 Estimated GFR 12 ml/min 11/09/17 06:50 BUN/Creatinine Ratio 10 % 11/09/17 06:50 Glucose 94 mg/dL (75-100) 11/09/17 06:50 POC Glucose 117 (70-105) H 10/25/17 16:33 Hemoglobin A1c 6.9 % (4-6) H 10/25/17 14:37 Calcium 8.6 mg/dL (8.4-10.2) 11/09/17 06:50 Phosphorus 6.10 mg/dL (2.5-4.5) H 11/06/17 05:20 Iron 63 ug/dL (49-181) 10/26/17 13:46 TIBC 144 mcg/dL (250-450) L 10/26/17 13:46 % Saturation 43.75 % 10/26/17 13:46 Transferrin 130 mg/dl (180-329) L 10/26/17 13:46 Ferritin 1014.0 ng/mL (13.0-400.0) H 10/26/17 13:46 Total Bilirubin 0.20 mg/dL (0.1-1.2) 11/01/17 05:26 AST 21 units/L (5-40) 11/01/17 05:26 ALT 44 units/L (7-56) 11/01/17 05:26 Alkaline Phosphatase 50 units/L (35-129) 11/01/17 05:26 Lactate Dehydrogenase 237 units/L (91-180) H 11/01/17 05:26 Serum Total Protein 5.8 g/dL (6.1-8.1) L 10/27/17 17:10 Total Protein 5.2 g/dL (6.3-8.2) L 11/01/17 05:26 Albumin 2.7 g/dL (3.9-5) L 11/01/17 05:26 Albumin/Globulin Ratio 1.1 % 11/01/17 05:26 Hqoxl-2-Abzpkdtct 0.4 g/dL (0.2-0.3) H 10/27/17 17:10 Occze-1-Umiqbidyy 0.7 g/dL (0.5-0.9) 10/27/17 17:10 Beta Globulins 0.4 g/dL (0.2-0.5) 10/27/17 17:10 Gamma Globulins 1.2 g/dL (0.8-1.7) 10/27/17 17:10 Abnorm Protein Band 1 see below 10/27/17 17:10 PEP Interpretation see below H 10/27/17 17:10 Amylase 247 units/L (27-131) H 10/25/17 14:37 Lipase 152 units/L (13-60) H 10/25/17 14:37 Vitamin B12 761.2 pg/mL (211-911) 10/27/17 17:17 25-OH Vitamin D Total 17 ng/mL (30-100) L 10/29/17 05:10 Folate > 20.00 ng/mL (7.3-26.0) 10/26/17 13:46 PTH Intact 516.1 pg/mL (15-65) H 10/28/17 08:07 Urine Color Margo (Yellow) 11/04/17 05:13 Urine Turbidity Turbid (Clear) 11/04/17 05:13 Urine pH 5.0 (5.0-7.0) 11/04/17 05:13 Ur Specific [place] 1.018 (1.003-1.030) 11/04/17 05:13 Urine Protein >500 mg/dL (Negative) 11/04/17 05:13 Urine Glucose (UA) Neg mg/dL (Negative) 11/04/17 05:13 Urine Ketones Neg mg/dL (Negative) 11/04/17 05:13 Urine Blood Sm (Negative) 11/04/17 05:13 Urine Nitrite Neg (Negative) 11/04/17 05:13 Urine Bilirubin Neg (Negative) 11/04/17 05:13 Urine Urobilinogen < 2.0 mg/dL (<2.0) 11/04/17 05:13 Ur Leukocyte Esterase Lg (Negative) 11/04/17 05:13 Urine WBC (Auto) 93.0 /HPF (0.0-6.0) H 11/04/17 05:13 Urine RBC (Auto) 38.0 /HPF (0.0-6.0) 11/04/17 05:13 U Epithel Cells (Auto) 3.0 /HPF (0-13.0) 11/04/17 05:13 Urine Bacteria (Auto) 2+ /HPF (Negative) 11/04/17 05:13 Urine WBC Clumps 1+ /HPF 11/04/17 05:13 Amorphous Crystals Few 11/04/17 05:13 Hyaline Casts 30 /LPF 11/04/17 05:13 Urine Mucus Few /HPF 11/04/17 05:13 Urine Eosinophils 2% (None Seen) 10/25/17 21:44 Urine Creatinine 87.5 mg/dL (0.1-20.0) H 10/25/17 21:44 Protein/Creatinin Ratio 9.92 10/25/17 21:44 Urine Sodium 56 mmol/L 10/25/17 21:44 Urine Total Protein 868 mg/dL (5-11.8) H 10/25/17 21:44 YAMILET Screen Positive (Negative) H 10/25/17 16:22 YAMILET Titer 1:640 (Negative) H 10/25/17 16:22 YAMILET Pattern Speckled 10/25/17 16:22 Proteinase 3 (PR3) Ab <1.0 AI (<1.0) 10/25/17 16:22 Myeloperoxidase Ab <1.0 AI (<1.0) 10/25/17 16:22 Double Strand DNA Ab 39 IU/mL (<=4) H 10/25/17 16:22 Glomerular Base Mem IgG <1.0 AI (<1.0) 10/25/17 16:22 Complement C3 <15 mg/dL (90-180) L 10/25/17 16:22 Complement C4 27 mg/dL (16-47) 10/25/17 16:22 Hep Bs Antigen Non-reactive (Negative) 10/25/17 16:31 Hepatitis C Antibody Non-reactive (NonReactive) 10/25/17 16:30 HIV 1&2 Antibody Rapid Non react (Non React) 10/25/17 16:22 HIV P24 Antigen Non react (Non React) 10/25/17 16:22 Schistocytes Smear Rare 10/27/17 17:16 Miscellaneous Test Flexitest 1 10/27/17 08:30 Blood Type B POSITIVE 10/31/17 00:56 Antibody Screen Negative 10/31/17 00:56 Crossmatch See Detail 10/31/17 00:56
[2017-11-09] MEDS: HEPARIN SUB-Q SCH ×2 (22:30→23:21)
[2017-11-10] MEDS: DILAUDID IV PRN ×4 (01:57→23:16)
[2017-11-10] MEDS: CATAPRES PO SCH ×5 (02:11→17:36)
[2017-11-10] MEDS: PROCRIT SUB-Q SCH (02:21)
[2017-11-10 05:56] LABS: Hematocrit 24.5 % (35.5-45.6); Hemoglobin 8.4 gm/dl (11.8-15.2); Mean Corpuscular HGB Conc 34 % (32-34); Mean Corpuscular Hemoglobin 31 pg (28-32); Mean Corpuscular Volume 91 fl (84-94); Platelet Count 141 K/mm3 (140-440); Red Blood Count 2.69 M/mm3 (3.65-5.03); Red Cell Distribution Width 17.9 % (13.2-15.2); White Blood Count 16.2 K/mm3 (4.5-11.0)
[2017-11-10 06:13] LABS: Calcium 8.6 mg/dL (8.4-10.2); Chloride 95.8 mmol/L (98-107); Potassium 4.9 mmol/L (3.6-5.0)
[2017-11-10 07:39] LABS: Anisocytosis 1+; Basophils % (Manual) 0 % (0.0-1.8); Blastocytes % (Manual) 0 %; Eosinophils % (Manual) 0 % (0.0-4.3); Helmet Cells Rare; Ovalocytes 2+; Poikilocytosis 1+; Tear Drop Cells 1+
[2017-11-10 07:40] LABS: Diff Status Complete; Microcytosis 1+; Polychromasia 1+; Schistocytes Rare
[2017-11-10] MEDS: RENVELA PO SCH ×3 (08:26→16:51)
[2017-11-10] MEDS: THERAGRAN Tab PO SCH (09:58)
[2017-11-10] MEDS: PLAQUENIL PO SCH (09:59)
[2017-11-10] MEDS: DELTASONE PO SCH (09:59)
[2017-11-10] MEDS: NORVASC PO SCH (10:00)
[2017-11-10] MEDS: TAPAZOLE PO SCH (10:00)
[2017-11-10] MEDS: ROCALTROL PO SCH (10:00)
[2017-11-10] MEDS: CELLCEPT PO SCH ×2 (10:00→23:17)
[2017-11-10] MEDS: HEPARIN SUB-Q SCH ×2 (10:05→23:18)
--- NOTE | 2017-11-10 11:19 | Progress Note ---
Assessment and Plan Assessment: 1) Leukocytosis: from steroids versus UTI 2) UTI: not present on admission due to Enterobacter 3) Lupus 4) Acute on chronic kidney disease /to end-stage renal disease - Class III lupus per renal biopsy, CellCept 1500 twice a day induction started on 2016, 5) Lupus, On Plaquenil and corticosteroids 6) Penicillin allergy Plan: -follow-up blood cultures -continue levaquin Q48 h total 7 days from 11/04-11/10 I am signing off Thank you Dr Rowell for your consultation, will follow up with you. Kat Vallecillo MD Infectious Diseases Specialist [facility] [place] [facility] [phone] Subjective Date of service: 11/10/17 Principal diagnosis: ARF/CKD Acute Hemolytic anemia Interval history: Feels better, denies N/V. No fever. Microbiology: Blood cultures: 11 09 ngtd Urine cultures: 11/04 Enterobacter Current Antimicrobials: Levaquin 11/08 Previous Antimicrobials: Objective - Constitutional Vitals: Vital Signs Temp Pulse Resp BP Pulse Ox 98.3 F 97 H 14 178/80 100 11/10/17 08:04 11/10/17 08:04 11/10/17 08:04 11/10/17 10:04 11/10/17 08:04 Temperature -Last 24 Hours Temperature 98.3 F Temperature 98.8 F Temperature 98.3 F Temperature 98.8 F Temperature 98.1 F - Labs CBC & Chem 7: 11/10/17 05:10 11/10/17 05:10 Labs: Abnormal lab results 11/10/17 11/10/17 Range/Units 05:10 05:10 WBC 16.2 H (4.5-11.0) K/mm3 RBC 2.69 L (3.65-5.03) M/mm3 Hgb 8.4 L (11.8-15.2) gm/dl Hct 24.5 L (35.5-45.6) % RDW 17.9 H (13.2-15.2) % Seg Neuts % (Manual) 89.0 H (40.0-70.0) % Lymphocytes % (Manual) 3.0 L (13.4-35.0) % Seg Neutrophils # Man 14.4 H (1.8-7.7) K/mm3 Lymphocytes # (Manual) 0.5 L (1.2-5.4) K/mm3 Sodium 136 L (137-145) mmol/L Chloride 95.8 L (98-107) mmol/L BUN 43 H (9-20) mg/dL Creatinine 4.7 H (0.8-1.5) mg/dL
--- NOTE | 2017-11-10 11:27 | Progress Note ---
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 Per Hematology oncologist, rest of the workup as outpatient (4) Hypertension Current Visit: Yes Status: Chronic Qualifiers: Hypertension type: essential hypertension Qualified Code(s): I10 - Essential (primary) hypertension Plan to address problem: Continue on anti-hypertensive agents (5) Lupus Current Visit: Yes Status: Chronic Qualifiers: Systemic lupus erythematosus type: unspecified Plan to address problem: Was on Plaqeunil and Prednisone. As per primary team (6) Hyperthyroidism Current Visit: No Status: Acute Plan to address problem: On Tapazole at home Subjective Date of service: 11/10/17 Principal diagnosis: ARF/CKD Acute Hemolytic anemia Interval history: Patient seen sitting up in bed. No complaints voiced. Objective - Vital Signs Vital signs: Vital Signs - 12hr 11/10/17 11/10/17 11/10/17 02:23 08:04 10:00 Temperature 98.3 F Pulse Rate 97 H Respiratory 14 Rate Blood Pressure 150/94 188/115 178/80 O2 Sat by Pulse 100 Oximetry 11/10/17 10:04 Temperature Pulse Rate Respiratory Rate Blood Pressure 178/80 O2 Sat by Pulse Oximetry - General Appearance General appearance: well-developed, appears stated age EENT: ATNC, PERRL, hearing intact, vision intact Neck: no JVD, supple Respiratory: Present: Clear to Ascultation Cardiology: regular, S1S2 Gastrointestinal: normoactive bowel sounds Integumentary: warm and dry Neurologic: alert and oriented x3 Musculoskeletal: other (No edema to BLE) Psychiatric: cooperative - Lab 11/10/17 05:10 11/10/17 05:10 Most recent lab results Calcium 8.6 mg/dL (8.4-10.2) 11/10/17 05:10 Phosphorus 6.10 mg/dL (2.5-4.5) H 11/06/17 05:20 Urine Creatinine 87.5 mg/dL (0.1-20.0) H 10/25/17 21:44 Urine Sodium 56 mmol/L 10/25/17 21:44 Urine Total Protein 868 mg/dL (5-11.8) H 10/25/17 21:44
--- NOTE | 2017-11-10 14:57 | Progress Note ---
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 , patient needed to follow with a board machine set up operator upon discharge Rheumatology service not available in our hospital patient received 3 day pulse of Solu-Medrol, now on prednisone 60 mg, On HD per schedule , case management for scheduling outpatient HD chair --Anemia of chronic disease; status post transfusion 3 units of PRBC --possible TTP/HUS; Received 3 cycles of plasmapheresis.rest of the workup as outpatient but hematology --Electrolyte abnormalities; corrected --Hyperthyroidism, On methimazole --Hypertension well controlled , continue current antihypertensives and when necessary medications --H/O Lupus on Plaquenil and steroids --DVT prophylaxis, Heparin subcutaneous Dispo: Outpatient HD scheduling per case management History Interval history: Patient seen and evaluated medical records reviewed Feels better no new complaints Receiving hemodialysis, case management scheduling outpatient HD changed Alert awake oriented 3 not in acute distress Hospitalist Physical - Constitutional Vitals: Temp Pulse Resp BP Pulse Ox 98.3 F 97 H 14 178/80 100 11/10/17 08:04 11/10/17 08:04 11/10/17 08:04 11/10/17 10:04 11/10/17 08:04 General appearance: Present: no acute distress, well-nourished - EENT Eyes: Present: PERRL, EOM intact - Neck Neck: Present: supple, normal ROM - Respiratory Respiratory effort: normal Respiratory: bilateral: diminished, negative: rales, rhonchi, wheezing - Cardiovascular Rhythm: regular Heart Sounds: Present: S1 & S2 - Extremities Extremities: no ischemia, No edema Peripheral Pulses: within normal limits - Abdominal General gastrointestinal: soft, non-tender, non-distended, normal bowel sounds - Integumentary Integumentary: Present: clear, warm - Psychiatric Psychiatric: appropriate mood/affect, cooperative - Neurologic Neurologic: CNII-XII intact, moves all extremities Results - Labs CBC & Chem 7: 11/10/17 05:10 11/10/17 05:10 Labs: Laboratory Last Values WBC 16.2 K/mm3 (4.5-11.0) H 11/10/17 05:10 RBC 2.69 M/mm3 (3.65-5.03) L 11/10/17 05:10 Hgb 8.4 gm/dl (11.8-15.2) L 11/10/17 05:10 Hct 24.5 % (35.5-45.6) L 11/10/17 05:10 MCV 91 fl (84-94) 11/10/17 05:10 MCH 31 pg (28-32) 11/10/17 05:10 MCHC 34 % (32-34) 11/10/17 05:10 RDW 17.9 % (13.2-15.2) H 11/10/17 05:10 Plt Count 141 K/mm3 (140-440) 11/10/17 05:10 Lymph % (Auto) 7.6 % (13.4-35.0) L 11/09/17 06:50 Villalba % (Auto) 7.6 % (0.0-7.3) H 11/09/17 06:50 Eos % (Auto) 0.0 % (0.0-4.3) 11/09/17 06:50 Baso % (Auto) 0.1 % (0.0-1.8) 11/09/17 06:50 Lymph # 1.3 K/mm3 (1.2-5.4) 11/09/17 06:50 Villalba # 1.4 K/mm3 (0.0-0.8) H 11/09/17 06:50 Eos # 0.0 K/mm3 (0.0-0.4) 11/09/17 06:50 Baso # 0.0 K/mm3 (0.0-0.1) 11/09/17 06:50 Add Manual Diff Complete 11/10/17 05:10 Total Counted 100 11/10/17 05:10 Seg Neutrophils % 84.7 % (40.0-70.0) H 11/09/17 06:50 Seg Neuts % (Manual) 89.0 % (40.0-70.0) H 11/10/17 05:10 Band Neutrophils % 1.0 % 11/10/17 05:10 Lymphocytes % (Manual) 3.0 % (13.4-35.0) L 11/10/17 05:10 Reactive Lymphs % (Man) 0 % 11/10/17 05:10 Monocytes % (Manual) 5.0 % (0.0-7.3) 11/10/17 05:10 Eosinophils % (Manual) 0 % (0.0-4.3) 11/10/17 05:10 Basophils % (Manual) 0 % (0.0-1.8) 11/10/17 05:10 Metamyelocytes % 2.0 % 11/10/17 05:10 Myelocytes % 0 % 11/10/17 05:10 Promyelocytes % 0 % 11/10/17 05:10 Blast Cells % 0 % 11/10/17 05:10 Nucleated RBC % Not Reportable 11/10/17 05:10 Seg Neutrophils # 15.0 K/mm3 (1.8-7.7) H 11/09/17 06:50 Seg Neutrophils # Man 14.4 K/mm3 (1.8-7.7) H 11/10/17 05:10 Band Neutrophils # 0.2 K/mm3 11/10/17 05:10 Lymphocytes # (Manual) 0.5 K/mm3 (1.2-5.4) L 11/10/17 05:10 Abs React Lymphs (Man) 0.0 K/mm3 11/10/17 05:10 Monocytes # (Manual) 0.8 K/mm3 (0.0-0.8) 11/10/17 05:10 Eosinophils # (Manual) 0.0 K/mm3 (0.0-0.4) 11/10/17 05:10 Basophils # (Manual) 0.0 K/mm3 (0.0-0.1) 11/10/17 05:10 Metamyelocytes # 0.3 K/mm3 11/10/17 05:10 Myelocytes # 0.0 K/mm3 11/10/17 05:10 Promyelocytes # 0.0 K/mm3 11/10/17 05:10 Blast Cells # 0.0 K/mm3 11/10/17 05:10 WBC Morphology Not Reportable 11/10/17 05:10 Hypersegmented Neuts Not Reportable 11/10/17 05:10 Hyposegmented Neuts Not Reportable 11/10/17 05:10 Hypogranular Neuts Not Reportable 11/10/17 05:10 Smudge Cells Not Reportable 11/10/17 05:10 Toxic Granulation Not Reportable 11/10/17 05:10 Toxic Vacuolation Not Reportable 11/10/17 05:10 Dohle Bodies Not Reportable 11/10/17 05:10 Pelger-Huet Anomaly Not Reportable 11/10/17 05:10 Kam Rods Not Reportable 11/10/17 05:10 Platelet Estimate Appears normal 11/10/17 05:10 Clumped Platelets Not Reportable 11/10/17 05:10 Plt Clumps, EDTA Not Reportable 11/10/17 05:10 Large Platelets Not Reportable 11/10/17 05:10 Giant Platelets Not Reportable 11/10/17 05:10 Platelet Satelliting Not Reportable 11/10/17 05:10 Plt Morphology Comment Not Reportable 11/10/17 05:10 RBC Morphology Not Reportable 11/10/17 05:10 Dimorphic RBCs Not Reportable 11/10/17 05:10 Polychromasia 1+ 11/10/17 05:10 Hypochromasia Not Reportable 11/10/17 05:10 Poikilocytosis 1+ 11/10/17 05:10 Anisocytosis 1+ 11/10/17 05:10 Microcytosis 1+ 11/10/17 05:10 Macrocytosis Not Reportable 11/10/17 05:10 Spherocytes Not Reportable 11/10/17 05:10 Pappenheimer Bodies Not Reportable 11/10/17 05:10 Sickle Cells Not Reportable 11/10/17 05:10 Target Cells Not Reportable 11/10/17 05:10 Tear Drop Cells 1+ 11/10/17 05:10 Ovalocytes 2+ 11/10/17 05:10 Helmet Cells Rare 11/10/17 05:10 [place] Bodies Not Reportable 11/10/17 05:10 Orla Rings Not Reportable 11/10/17 05:10 Dickson Cells Not Reportable 11/10/17 05:10 Bite Cells Not Reportable 11/10/17 05:10 Crenated Cell Not Reportable 11/10/17 05:10 Elliptocytes Not Reportable 11/10/17 05:10 Acanthocytes (Spur) Not Reportable 11/10/17 05:10 Rouleaux Not Reportable 11/10/17 05:10 Hemoglobin C Crystals Not Reportable 11/10/17 05:10 Schistocytes Rare 11/10/17 05:10 Malaria parasites Not Reportable 11/10/17 05:10 ESR 42 mm/Hr (0-20) 10/27/17 05:15 Percent Retic 0.89 % (0.78-2.58) 10/27/17 17:16 Nasir Bodies Not Reportable 11/10/17 05:10 Haptoglobin 88 mg/dL (43-212) 10/26/17 13:46 Hem Pathologist Commnt No 11/10/17 05:10 PT 13.0 Sec. (12.2-14.9) 10/31/17 04:56 INR 0.94 (0.87-1.13) 10/31/17 04:56 APTT 30.9 Sec. (24.2-36.6) 10/25/17 15:28 Sodium 136 mmol/L (137-145) L 11/10/17 05:10 Potassium 4.9 mmol/L (3.6-5.0) 11/10/17 05:10 Chloride 95.8 mmol/L (98-107) L 11/10/17 05:10 Carbon Dioxide 28 mmol/L (22-30) 11/10/17 05:10 Anion Gap 17 mmol/L 11/10/17 05:10 BUN 43 mg/dL (9-20) H 11/10/17 05:10 Creatinine 4.7 mg/dL (0.8-1.5) H 11/10/17 05:10 Estimated GFR 18 ml/min 11/10/17 05:10 BUN/Creatinine Ratio 9 % 11/10/17 05:10 Glucose 86 mg/dL (75-100) 11/10/17 05:10 POC Glucose 117 (70-105) H 10/25/17 16:33 Hemoglobin A1c 6.9 % (4-6) H 10/25/17 14:37 Calcium 8.6 mg/dL (8.4-10.2) 11/10/17 05:10 Phosphorus 6.10 mg/dL (2.5-4.5) H 11/06/17 05:20 Iron 63 ug/dL (49-181) 10/26/17 13:46 TIBC 144 mcg/dL (250-450) L 10/26/17 13:46 % Saturation 43.75 % 10/26/17 13:46 Transferrin 130 mg/dl (180-329) L 10/26/17 13:46 Ferritin 1014.0 ng/mL (13.0-400.0) H 10/26/17 13:46 Total Bilirubin 0.20 mg/dL (0.1-1.2) 11/01/17 05:26 AST 21 units/L (5-40) 11/01/17 05:26 ALT 44 units/L (7-56) 11/01/17 05:26 Alkaline Phosphatase 50 units/L (35-129) 11/01/17 05:26 Lactate Dehydrogenase 237 units/L (91-180) H 11/01/17 05:26 Serum Total Protein 5.8 g/dL (6.1-8.1) L 10/27/17 17:10 Total Protein 5.2 g/dL (6.3-8.2) L 11/01/17 05:26 Albumin 2.7 g/dL (3.9-5) L 11/01/17 05:26 Albumin/Globulin Ratio 1.1 % 11/01/17 05:26 Ptaey-1-Ezyustltw 0.4 g/dL (0.2-0.3) H 10/27/17 17:10 Ahdwy-1-Vtuqlohzl 0.7 g/dL (0.5-0.9) 10/27/17 17:10 Beta Globulins 0.4 g/dL (0.2-0.5) 10/27/17 17:10 Gamma Globulins 1.2 g/dL (0.8-1.7) 10/27/17 17:10 Abnorm Protein Band 1 see below 10/27/17 17:10 PEP Interpretation see below H 10/27/17 17:10 Amylase 247 units/L (27-131) H 10/25/17 14:37 Lipase 152 units/L (13-60) H 10/25/17 14:37 Vitamin B12 761.2 pg/mL (211-911) 10/27/17 17:17 25-OH Vitamin D Total 17 ng/mL (30-100) L 10/29/17 05:10 25-Hydroxy Vitamin D2 . 10/29/17 05:10 25-Hydroxy Vitamin D3 . 10/29/17 05:10 Folate > 20.00 ng/mL (7.3-26.0) 10/26/17 13:46 PTH Intact 516.1 pg/mL (15-65) H 10/28/17 08:07 Urine Color Margo (Yellow) 11/04/17 05:13 Urine Turbidity Turbid (Clear) 11/04/17 05:13 Urine pH 5.0 (5.0-7.0) 11/04/17 05:13 Ur Specific [place] 1.018 (1.003-1.030) 11/04/17 05:13 Urine Protein >500 mg/dL (Negative) 11/04/17 05:13 Urine Glucose (UA) Neg mg/dL (Negative) 11/04/17 05:13 Urine Ketones Neg mg/dL (Negative) 11/04/17 05:13 Urine Blood Sm (Negative) 11/04/17 05:13 Urine Nitrite Neg (Negative) 11/04/17 05:13 Urine Bilirubin Neg (Negative) 11/04/17 05:13 Urine Urobilinogen < 2.0 mg/dL (<2.0) 11/04/17 05:13 Ur Leukocyte Esterase Lg (Negative) 11/04/17 05:13 Urine WBC (Auto) 93.0 /HPF (0.0-6.0) H 11/04/17 05:13 Urine RBC (Auto) 38.0 /HPF (0.0-6.0) 11/04/17 05:13 U Epithel Cells (Auto) 3.0 /HPF (0-13.0) 11/04/17 05:13 Urine Bacteria (Auto) 2+ /HPF (Negative) 11/04/17 05:13 Urine WBC Clumps 1+ /HPF 11/04/17 05:13 Amorphous Crystals Few 11/04/17 05:13 Hyaline Casts 30 /LPF 11/04/17 05:13 Urine Mucus Few /HPF 11/04/17 05:13 Urine Eosinophils 2% (None Seen) 10/25/17 21:44 Urine Creatinine 87.5 mg/dL (0.1-20.0) H 10/25/17 21:44 Protein/Creatinin Ratio 9.92 10/25/17 21:44 Urine Sodium 56 mmol/L 10/25/17 21:44 Urine Total Protein 868 mg/dL (5-11.8) H 10/25/17 21:44 YAMILET Screen Positive (Negative) H 10/25/17 16:22 YAMILET Titer 1:640 (Negative) H 10/25/17 16:22 YAMILET Pattern Speckled 10/25/17 16:22 Proteinase 3 (PR3) Ab <1.0 AI (<1.0) 10/25/17 16:22 Myeloperoxidase Ab <1.0 AI (<1.0) 10/25/17 16:22 Double Strand DNA Ab 39 IU/mL (<=4) H 10/25/17 16:22 Glomerular Base Mem IgG <1.0 AI (<1.0) 10/25/17 16:22 Complement C3 <15 mg/dL (90-180) L 10/25/17 16:22 Complement C4 27 mg/dL (16-47) 10/25/17 16:22 Hep Bs Antigen Non-reactive (Negative) 10/25/17 16:31 Hepatitis C Antibody Non-reactive (NonReactive) 10/25/17 16:30 HIV 1&2 Antibody Rapid Non react (Non React) 10/25/17 16:22 HIV P24 Antigen Non react (Non React) 10/25/17 16:22 Schistocytes Smear Rare 10/27/17 17:16 Miscellaneous Test Flexitest 1 10/27/17 08:30 Blood Type B POSITIVE 10/31/17 00:56 Antibody Screen Negative 10/31/17 00:56 Crossmatch See Detail 10/31/17 00:56
[2017-11-10] MEDS: LEVAQUIN PO SCH (14:58)
[2017-11-11] MEDS: CATAPRES PO SCH ×2 (01:36→14:55)
[2017-11-11 06:12] LABS: Albumin 2.7 g/dL (3.9-5); Albumin/Globulin Ratio 1.1 %; Bilirubin,Total 0.3 mg/dL (0.1-1.2); Calcium 8.6 mg/dL (8.4-10.2); Chloride 93.9 mmol/L (98-107); Potassium 5.6 mmol/L (3.6-5.0); Total Protein 5.2 g/dL (6.3-8.2)
[2017-11-11] MEDS: RENVELA PO SCH ×3 (08:07→17:00)
[2017-11-11] MEDS: DILAUDID IV PRN ×2 (08:11→20:37)
[2017-11-11] MEDS ORDERED: KIONEX PO ONE (10:00)
--- NOTE | 2017-11-11 12:18 | Progress Note ---
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 Per Hematology oncologist, rest of the workup as outpatient (4) Hypertension Current Visit: Yes Status: Chronic Qualifiers: Hypertension type: essential hypertension Qualified Code(s): I10 - Essential (primary) hypertension Plan to address problem: Continue on anti-hypertensive agents (5) Lupus Current Visit: Yes Status: Chronic Qualifiers: Systemic lupus erythematosus type: unspecified Plan to address problem: On Plaqeunil and Prednisone. As per primary team (6) Hyperthyroidism Current Visit: No Status: Acute Plan to address problem: On Tapazole Subjective Date of service: 11/11/17 Principal diagnosis: ARF/CKD Acute Hemolytic anemia Interval history: Patient seen in dialysis unit. Tolerating hemodialysis. Objective - Vital Signs Vital signs: Vital Signs - 12hr 11/11/17 11/11/17 11/11/17 01:22 01:36 07:37 Temperature 98.3 F 98.1 F Pulse Rate 98 H 96 H 74 Respiratory 16 16 Rate Respiratory Rate [ Generalized] Blood Pressure 172/114 174/112 166/98 O2 Sat by Pulse 100 98 Oximetry 11/11/17 11/11/17 08:11 10:00 Temperature Pulse Rate Respiratory 18 Rate Respiratory 18 Rate [ Generalized] Blood Pressure O2 Sat by Pulse Oximetry - General Appearance General appearance: well-developed, appears stated age EENT: ATNC, PERRL, hearing intact, vision intact Neck: no JVD, supple Respiratory: Present: Decreased Breath Sounds Cardiology: regular, S1S2 Gastrointestinal: normoactive bowel sounds Integumentary: warm and dry Neurologic: alert and oriented x3 Musculoskeletal: no deformities, no erythema, no cyanosis, no clubbing Psychiatric: cooperative - Lab 11/10/17 05:10 11/11/17 04:58 Most recent lab results Calcium 8.6 mg/dL (8.4-10.2) 11/11/17 04:58 Phosphorus 6.10 mg/dL (2.5-4.5) H 11/06/17 05:20 Urine Creatinine 87.5 mg/dL (0.1-20.0) H 10/25/17 21:44 Urine Sodium 56 mmol/L 10/25/17 21:44 Urine Total Protein 868 mg/dL (5-11.8) H 10/25/17 21:44
[2017-11-11] MEDS ORDERED: NACL 0.9 (PRIMING MACHINE ONLY DIALYSIS) MC ONE (13:59)
[2017-11-11] MEDS: ROXICODONE PO PRN (14:52)
[2017-11-11] MEDS: PERCOCET 5/325 PO PRN (14:52)
[2017-11-11] MEDS: DELTASONE PO SCH (14:53)
[2017-11-11] MEDS: THERAGRAN Tab PO SCH (14:53)
[2017-11-11] MEDS: PLAQUENIL PO SCH (14:53)
[2017-11-11] MEDS: TAPAZOLE PO SCH (14:54)
[2017-11-11] MEDS: NORVASC PO SCH (14:54)
[2017-11-11] MEDS: ROCALTROL PO SCH (14:55)
[2017-11-11] MEDS: CELLCEPT PO SCH ×2 (14:55→21:38)
[2017-11-11] MEDS: HEPARIN IV PRN (16:51)
[2017-11-11] MEDS: HEPARIN SUB-Q SCH ×2 (17:01→21:38)
[2017-11-11] MEDS: PROCRIT SUB-Q SCH (17:21)
--- NOTE | 2017-11-11 17:52 | Progress Note ---
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 , patient needed to follow with a supervisor taping upon discharge Rheumatology service not available in our hospital patient received 3 day pulse of Solu-Medrol, now on prednisone 60 mg, --Anemia of chronic disease; status post transfusion 3 units of PRBC --possible TTP/HUS; Received 3 cycles of plasmapheresis.rest of the workup as outpatient but hematology --Electrolyte abnormalities; corrected --Hyperthyroidism, On methimazole --Hypertension ;moderate control , continue current antihypertensives and when necessary medications --H/O Lupus on Plaquenil and steroids --DVT prophylaxis, Heparin subcutaneous --DC planning; outpatient HD chair scheduling per case management Plan of care discussed with the patient History Interval history: Patient feels better no new complaints Receiving dialysis per schedule Anxious to go home, awaiting outpatient HD scheduling Hospitalist Physical - Constitutional Vitals: Temp Pulse Resp BP Pulse Ox 98.1 F 86 14 155/104 98 11/11/17 15:41 11/11/17 14:10 11/11/17 15:41 11/11/17 15:41 11/11/17 07:37 General appearance: Present: no acute distress, well-nourished - EENT Eyes: Present: PERRL, EOM intact - Neck Neck: Present: supple, normal ROM - Respiratory Respiratory effort: normal Respiratory: bilateral: CTA, negative: rales, rhonchi, wheezing - Cardiovascular Rhythm: regular Heart Sounds: Present: S1 & S2 - Extremities Extremities: no ischemia, No edema - Abdominal General gastrointestinal: soft, non-tender, non-distended, normal bowel sounds - Integumentary Integumentary: Present: clear, warm - Psychiatric Psychiatric: appropriate mood/affect, cooperative - Neurologic Neurologic: CNII-XII intact, moves all extremities Results - Labs CBC & Chem 7: 11/10/17 05:10 11/11/17 04:58 Labs: Laboratory Last Values WBC 16.2 K/mm3 (4.5-11.0) H 11/10/17 05:10 RBC 2.69 M/mm3 (3.65-5.03) L 11/10/17 05:10 Hgb 8.4 gm/dl (11.8-15.2) L 11/10/17 05:10 Hct 24.5 % (35.5-45.6) L 11/10/17 05:10 MCV 91 fl (84-94) 11/10/17 05:10 MCH 31 pg (28-32) 11/10/17 05:10 MCHC 34 % (32-34) 11/10/17 05:10 RDW 17.9 % (13.2-15.2) H 11/10/17 05:10 Plt Count 141 K/mm3 (140-440) 11/10/17 05:10 Lymph % (Auto) 7.6 % (13.4-35.0) L 11/09/17 06:50 [place] % (Auto) 7.6 % (0.0-7.3) H 11/09/17 06:50 Eos % (Auto) 0.0 % (0.0-4.3) 11/09/17 06:50 Baso % (Auto) 0.1 % (0.0-1.8) 11/09/17 06:50 Lymph # 1.3 K/mm3 (1.2-5.4) 11/09/17 06:50 [place] # 1.4 K/mm3 (0.0-0.8) H 11/09/17 06:50 Eos # 0.0 K/mm3 (0.0-0.4) 11/09/17 06:50 Baso # 0.0 K/mm3 (0.0-0.1) 11/09/17 06:50 Add Manual Diff Complete 11/10/17 05:10 Total Counted 100 11/10/17 05:10 Seg Neutrophils % 84.7 % (40.0-70.0) H 11/09/17 06:50 Seg Neuts % (Manual) 89.0 % (40.0-70.0) H 11/10/17 05:10 Band Neutrophils % 1.0 % 11/10/17 05:10 Lymphocytes % (Manual) 3.0 % (13.4-35.0) L 11/10/17 05:10 Reactive Lymphs % (Man) 0 % 11/10/17 05:10 Monocytes % (Manual) 5.0 % (0.0-7.3) 11/10/17 05:10 Eosinophils % (Manual) 0 % (0.0-4.3) 11/10/17 05:10 Basophils % (Manual) 0 % (0.0-1.8) 11/10/17 05:10 Metamyelocytes % 2.0 % 11/10/17 05:10 Myelocytes % 0 % 11/10/17 05:10 Promyelocytes % 0 % 11/10/17 05:10 Blast Cells % 0 % 11/10/17 05:10 Nucleated RBC % Not Reportable 11/10/17 05:10 Seg Neutrophils # 15.0 K/mm3 (1.8-7.7) H 11/09/17 06:50 Seg Neutrophils # Man 14.4 K/mm3 (1.8-7.7) H 11/10/17 05:10 Band Neutrophils # 0.2 K/mm3 11/10/17 05:10 Lymphocytes # (Manual) 0.5 K/mm3 (1.2-5.4) L 11/10/17 05:10 Abs React Lymphs (Man) 0.0 K/mm3 11/10/17 05:10 Monocytes # (Manual) 0.8 K/mm3 (0.0-0.8) 11/10/17 05:10 Eosinophils # (Manual) 0.0 K/mm3 (0.0-0.4) 11/10/17 05:10 Basophils # (Manual) 0.0 K/mm3 (0.0-0.1) 11/10/17 05:10 Metamyelocytes # 0.3 K/mm3 11/10/17 05:10 Myelocytes # 0.0 K/mm3 11/10/17 05:10 Promyelocytes # 0.0 K/mm3 11/10/17 05:10 Blast Cells # 0.0 K/mm3 11/10/17 05:10 WBC Morphology Not Reportable 11/10/17 05:10 Hypersegmented Neuts Not Reportable 11/10/17 05:10 Hyposegmented Neuts Not Reportable 11/10/17 05:10 Hypogranular Neuts Not Reportable 11/10/17 05:10 Smudge Cells Not Reportable 11/10/17 05:10 Toxic Granulation Not Reportable 11/10/17 05:10 Toxic Vacuolation Not Reportable 11/10/17 05:10 Dohle Bodies Not Reportable 11/10/17 05:10 Pelger-Huet Anomaly Not Reportable 11/10/17 05:10 Kam Rods Not Reportable 11/10/17 05:10 Platelet Estimate Appears normal 11/10/17 05:10 Clumped Platelets Not Reportable 11/10/17 05:10 Plt Clumps, EDTA Not Reportable 11/10/17 05:10 Large Platelets Not Reportable 11/10/17 05:10 Giant Platelets Not Reportable 11/10/17 05:10 Platelet Satelliting Not Reportable 11/10/17 05:10 Plt Morphology Comment Not Reportable 11/10/17 05:10 RBC Morphology Not Reportable 11/10/17 05:10 Dimorphic RBCs Not Reportable 11/10/17 05:10 Polychromasia 1+ 11/10/17 05:10 Hypochromasia Not Reportable 11/10/17 05:10 Poikilocytosis 1+ 11/10/17 05:10 Anisocytosis 1+ 11/10/17 05:10 Microcytosis 1+ 11/10/17 05:10 Macrocytosis Not Reportable 11/10/17 05:10 Spherocytes Not Reportable 11/10/17 05:10 Pappenheimer Bodies Not Reportable 11/10/17 05:10 Sickle Cells Not Reportable 11/10/17 05:10 Target Cells Not Reportable 11/10/17 05:10 Tear Drop Cells 1+ 11/10/17 05:10 Ovalocytes 2+ 11/10/17 05:10 Helmet Cells Rare 11/10/17 05:10 [place] Bodies Not Reportable 11/10/17 05:10 [place] Rings Not Reportable 11/10/17 05:10 [place] Cells Not Reportable 11/10/17 05:10 Bite Cells Not Reportable 11/10/17 05:10 Crenated Cell Not Reportable 11/10/17 05:10 Elliptocytes Not Reportable 11/10/17 05:10 Acanthocytes (Spur) Not Reportable 11/10/17 05:10 Rouleaux Not Reportable 11/10/17 05:10 Hemoglobin C Crystals Not Reportable 11/10/17 05:10 Schistocytes Rare 11/10/17 05:10 Malaria parasites Not Reportable 11/10/17 05:10 ESR 42 mm/Hr (0-20) 10/27/17 05:15 Percent Retic 0.89 % (0.78-2.58) 10/27/17 17:16 Nasir Bodies Not Reportable 11/10/17 05:10 Haptoglobin 88 mg/dL (43-212) 10/26/17 13:46 Hem Pathologist Commnt No 11/10/17 05:10 PT 13.0 Sec. (12.2-14.9) 10/31/17 04:56 INR 0.94 (0.87-1.13) 10/31/17 04:56 APTT 30.9 Sec. (24.2-36.6) 10/25/17 15:28 Sodium 134 mmol/L (137-145) L 11/11/17 04:58 Potassium 5.6 mmol/L (3.6-5.0) H 11/11/17 04:58 Chloride 93.9 mmol/L (98-107) L 11/11/17 04:58 Carbon Dioxide 24 mmol/L (22-30) 11/11/17 04:58 Anion Gap 22 mmol/L 11/11/17 04:58 BUN 60 mg/dL (9-20) H 11/11/17 04:58 Creatinine 6.2 mg/dL (0.8-1.5) H 11/11/17 04:58 Estimated GFR 13 ml/min 11/11/17 04:58 BUN/Creatinine Ratio 10 % 11/11/17 04:58 Glucose 83 mg/dL (75-100) 11/11/17 04:58 POC Glucose 117 (70-105) H 10/25/17 16:33 Hemoglobin A1c 6.9 % (4-6) H 10/25/17 14:37 Calcium 8.6 mg/dL (8.4-10.2) 11/11/17 04:58 Phosphorus 6.10 mg/dL (2.5-4.5) H 11/06/17 05:20 Iron 63 ug/dL (49-181) 10/26/17 13:46 TIBC 144 mcg/dL (250-450) L 10/26/17 13:46 % Saturation 43.75 % 10/26/17 13:46 Transferrin 130 mg/dl (180-329) L 10/26/17 13:46 Ferritin 1014.0 ng/mL (13.0-400.0) H 10/26/17 13:46 Total Bilirubin 0.30 mg/dL (0.1-1.2) 11/11/17 04:58 AST 18 units/L (5-40) 11/11/17 04:58 ALT 45 units/L (7-56) 11/11/17 04:58 Alkaline Phosphatase 57 units/L (35-129) 11/11/17 04:58 Lactate Dehydrogenase 237 units/L (91-180) H 11/01/17 05:26 Serum Total Protein 5.8 g/dL (6.1-8.1) L 10/27/17 17:10 Total Protein 5.2 g/dL (6.3-8.2) L 11/11/17 04:58 Albumin 2.7 g/dL (3.9-5) L 11/11/17 04:58 Albumin/Globulin Ratio 1.1 % 11/11/17 04:58 Qenrb-6-Eafnlgnlk 0.4 g/dL (0.2-0.3) H 10/27/17 17:10 Dbirz-3-Gmtosengn 0.7 g/dL (0.5-0.9) 10/27/17 17:10 Beta Globulins 0.4 g/dL (0.2-0.5) 10/27/17 17:10 Gamma Globulins 1.2 g/dL (0.8-1.7) 10/27/17 17:10 Abnorm Protein Band 1 see below 10/27/17 17:10 PEP Interpretation see below H 10/27/17 17:10 Amylase 247 units/L (27-131) H 10/25/17 14:37 Lipase 152 units/L (13-60) H 10/25/17 14:37 Vitamin B12 761.2 pg/mL (211-911) 10/27/17 17:17 25-OH Vitamin D Total 17 ng/mL (30-100) L 10/29/17 05:10 25-Hydroxy Vitamin D2 . 10/29/17 05:10 25-Hydroxy Vitamin D3 . 10/29/17 05:10 Folate > 20.00 ng/mL (7.3-26.0) 10/26/17 13:46 PTH Intact 516.1 pg/mL (15-65) H 10/28/17 08:07 Urine Color [place] (Yellow) 11/04/17 05:13 Urine Turbidity Turbid (Clear) 11/04/17 05:13 Urine pH 5.0 (5.0-7.0) 11/04/17 05:13 Ur Specific [place] 1.018 (1.003-1.030) 11/04/17 05:13 Urine Protein >500 mg/dL (Negative) 11/04/17 05:13 Urine Glucose (UA) Neg mg/dL (Negative) 11/04/17 05:13 Urine Ketones Neg mg/dL (Negative) 11/04/17 05:13 Urine Blood Sm (Negative) 11/04/17 05:13 Urine Nitrite Neg (Negative) 11/04/17 05:13 Urine Bilirubin Neg (Negative) 11/04/17 05:13 Urine Urobilinogen < 2.0 mg/dL (<2.0) 11/04/17 05:13 Ur Leukocyte Esterase Lg (Negative) 11/04/17 05:13 Urine WBC (Auto) 93.0 /HPF (0.0-6.0) H 11/04/17 05:13 Urine RBC (Auto) 38.0 /HPF (0.0-6.0) 11/04/17 05:13 U Epithel Cells (Auto) 3.0 /HPF (0-13.0) 11/04/17 05:13 Urine Bacteria (Auto) 2+ /HPF (Negative) 11/04/17 05:13 Urine WBC Clumps 1+ /HPF 11/04/17 05:13 Amorphous Crystals Few 11/04/17 05:13 Hyaline Casts 30 /LPF 11/04/17 05:13 Urine Mucus Few /HPF 11/04/17 05:13 Urine Eosinophils 2% (None Seen) 10/25/17 21:44 Urine Creatinine 87.5 mg/dL (0.1-20.0) H 10/25/17 21:44 Protein/Creatinin Ratio 9.92 10/25/17 21:44 Urine Sodium 56 mmol/L 10/25/17 21:44 Urine Total Protein 868 mg/dL (5-11.8) H 10/25/17 21:44 YAMILET Screen Positive (Negative) H 10/25/17 16:22 YAMILET Titer 1:640 (Negative) H 10/25/17 16:22 YAMILET Pattern Speckled 10/25/17 16:22 Proteinase 3 (PR3) Ab <1.0 AI (<1.0) 10/25/17 16:22 Myeloperoxidase Ab <1.0 AI (<1.0) 10/25/17 16:22 Double Strand DNA Ab 39 IU/mL (<=4) H 10/25/17 16:22 Glomerular Base Mem IgG <1.0 AI (<1.0) 10/25/17 16:22 Complement C3 <15 mg/dL (90-180) L 10/25/17 16:22 Complement C4 27 mg/dL (16-47) 10/25/17 16:22 Hep Bs Antigen Non-reactive (Negative) 10/25/17 16:31 Hepatitis C Antibody Non-reactive (NonReactive) 10/25/17 16:30 HIV 1&2 Antibody Rapid Non react (Non React) 10/25/17 16:22 HIV P24 Antigen Non react (Non React) 10/25/17 16:22 Schistocytes Smear Rare 10/27/17 17:16 Renal Biopsy Scanned into [facility] rec 10/31/17 10:02 Miscellaneous Test Flexitest 1 10/27/17 08:30 Blood Type B POSITIVE 10/31/17 00:56 Antibody Screen Negative 10/31/17 00:56 Crossmatch See Detail 10/31/17 00:56
[2017-11-12] MEDS: PERCOCET 5/325 PO PRN ×2 (01:41→18:56)
[2017-11-12] MEDS: CATAPRES PO SCH ×4 (04:34→18:38)
[2017-11-12 05:11] LABS: Hematocrit 26.6 % (35.5-45.6); Hemoglobin 8.8 gm/dl (11.8-15.2); Mean Corpuscular HGB Conc 33 % (32-34); Mean Corpuscular Hemoglobin 30 pg (28-32); Mean Corpuscular Volume 92 fl (84-94); Platelet Count 133 K/mm3 (140-440); Red Cell Distribution Width 19.3 % (13.2-15.2); White Blood Count 15.2 K/mm3 (4.5-11.0)
[2017-11-12 05:26] LABS: Albumin 3.1 g/dL (3.9-5); Albumin/Globulin Ratio 1.1 %; Bilirubin,Total 0.3 mg/dL (0.1-1.2); Calcium 8.8 mg/dL (8.4-10.2); Chloride 93.3 mmol/L (98-107); Potassium 4.8 mmol/L (3.6-5.0); Total Protein 5.8 g/dL (6.3-8.2)
[2017-11-12 06:40] LABS: Basophils % (Manual) 0 % (0.0-1.8); Blastocytes % (Manual) 0 %; Diff Status Complete; Eosinophils % (Manual) 0 % (0.0-4.3); Platelet Estimate Consistent w Auto
[2017-11-12] MEDS: RENVELA PO SCH ×3 (08:48→16:43)
[2017-11-12] MEDS: DILAUDID IV PRN ×2 (08:48→13:49)
[2017-11-12] MEDS: NORVASC PO SCH ×2 (08:48→10:26)
[2017-11-12] MEDS: PLAQUENIL PO SCH ×2 (08:49→12:04)
--- NOTE | 2017-11-12 10:12 | Progress Note ---
Assessment and Plan (1) End stage kidney disease Current Visit: Yes Status: Acute Plan to address problem: ESRD secondary to Hypertensive Nephrosclerosis and Lupus Nephritis no indication for HD today On Cellcept and Prednisone for-Class 3 Lupus with crescents with acute and chronic changes shown on renal biopsy Avoid Nephrotoxic agents Renally dose medications Monitor I/O's Assess dialysis needs daily Awaiting outpatient HD placement, can be discharged from renal standpoint once set up (2) Hyperkalemia Current Visit: Yes Status: Acute Plan to address problem: low K diet (3) Anemia Current Visit: Yes Status: Acute Plan to address problem: Received 3 cycles of plasmapheresis. Per Hematology oncologist, rest of the workup as outpatient (4) Hypertension Current Visit: Yes Status: Chronic Qualifiers: Hypertension type: essential hypertension Qualified Code(s): I10 - Essential (primary) hypertension Plan to address problem: will add Labetalol 300 mg BID Subjective Date of service: 11/12/17 Principal diagnosis: ARF/CKD Acute Hemolytic anemia Interval history: tolerated HD well yesterday Objective - Vital Signs Vital signs: Vital Signs - 12hr 11/12/17 11/12/17 11/12/17 01:41 04:36 04:46 Temperature 99.1 F Pulse Rate 93 H Respiratory 20 16 Rate Blood Pressure 165/110 O2 Sat by Pulse 100 Oximetry 11/12/17 11/12/17 11/12/17 07:50 08:48 08:57 Temperature 98.6 F Pulse Rate 93 H Respiratory 20 Rate Blood Pressure 190/117 190/112 190/110 O2 Sat by Pulse 100 Oximetry - General Appearance General appearance: well-developed, well-nourished EENT: ATNC, PERRL, mucous membranes moist Neck: no JVD, no carotid bruit Respiratory: Present: Clear to Ascultation. Absent: Rales, Ronchi Cardiology: regular, S1S2 Gastrointestinal: normoactive bowel sounds, no tenderness, no distended Integumentary: no rash, warm and dry Neurologic: no focal deficit, no asterixis, alert and oriented x3 Musculoskeletal: deferred Psychiatric: mood/affect appropriate, cooperative - Lab 11/12/17 04:33 11/12/17 04:33 Most recent lab results Calcium 8.8 mg/dL (8.4-10.2) 11/12/17 04:33 Phosphorus 6.10 mg/dL (2.5-4.5) H 11/06/17 05:20 Urine Creatinine 87.5 mg/dL (0.1-20.0) H 10/25/17 21:44 Urine Sodium 56 mmol/L 10/25/17 21:44 Urine Total Protein 868 mg/dL (5-11.8) H 10/25/17 21:44
[2017-11-12] MEDS: CELLCEPT PO SCH ×2 (10:25→22:43)
[2017-11-12] MEDS: ROCALTROL PO SCH (10:25)
[2017-11-12] MEDS: DELTASONE PO SCH (10:26)
[2017-11-12] MEDS: THERAGRAN Tab PO SCH (10:26)
[2017-11-12] MEDS: TAPAZOLE PO SCH (10:26)
[2017-11-12] MEDS: NORMODYNE PO SCH ×2 (10:33→22:43)
[2017-11-12] MEDS: HEPARIN SUB-Q SCH ×2 (10:35→22:45)
[2017-11-12] MEDS: LEVAQUIN PO SCH (16:43)
--- NOTE | 2017-11-12 17:46 | Progress Note ---
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 , patient needed to follow with a wallcovering texturer upon discharge Rheumatology service not available in our hospital patient received 3 day pulse of Solu-Medrol, now on prednisone 60 mg, --Anemia of chronic disease; status post transfusion 3 units of PRBC --possible TTP/HUS; Received 3 cycles of plasmapheresis.rest of the workup as outpatient but hematology --Electrolyte abnormalities; corrected --Hyperthyroidism, On methimazole --Hypertension ;moderate control , continue current antihypertensives and when necessary medications --H/O Lupus on Plaquenil and steroids --DVT prophylaxis, Heparin subcutaneous --DC planning; outpatient HD chair scheduling per case management Plan of care discussed with the patient History Interval history: Patient seen and examined medical records reviewed patient feels better , no new complaints Receiving hemodialysis per schedule Hospitalist Physical - Constitutional Vitals: Temp Pulse Resp BP Pulse Ox 98.9 F 81 18 112/61 98 11/12/17 15:37 11/12/17 15:37 11/12/17 15:37 11/12/17 15:37 11/12/17 15:37 General appearance: Present: no acute distress, well-nourished - EENT Eyes: Present: PERRL, EOM intact - Neck Neck: Present: supple, normal ROM - Respiratory Respiratory effort: normal Respiratory: bilateral: diminished, negative: rales, rhonchi, wheezing - Cardiovascular Rhythm: regular Heart Sounds: Present: S1 & S2 - Extremities Extremities: no ischemia, No edema - Abdominal General gastrointestinal: soft, non-tender, non-distended, normal bowel sounds - Integumentary Integumentary: Present: clear, warm - Psychiatric Psychiatric: appropriate mood/affect, cooperative - Neurologic Neurologic: CNII-XII intact, moves all extremities Results - Labs CBC & Chem 7: 11/12/17 04:33 11/12/17 04:33 Labs: Laboratory Last Values WBC 15.2 K/mm3 (4.5-11.0) H 11/12/17 04:33 RBC 2.90 M/mm3 (3.65-5.03) L 11/12/17 04:33 Hgb 8.8 gm/dl (11.8-15.2) L 11/12/17 04:33 Hct 26.6 % (35.5-45.6) L 11/12/17 04:33 MCV 92 fl (84-94) 11/12/17 04:33 MCH 30 pg (28-32) 11/12/17 04:33 MCHC 33 % (32-34) 11/12/17 04:33 RDW 19.3 % (13.2-15.2) H 11/12/17 04:33 Plt Count 133 K/mm3 (140-440) L 11/12/17 04:33 Lymph % (Auto) 7.6 % (13.4-35.0) L 11/09/17 06:50 [place] % (Auto) 7.6 % (0.0-7.3) H 11/09/17 06:50 Eos % (Auto) 0.0 % (0.0-4.3) 11/09/17 06:50 Baso % (Auto) 0.1 % (0.0-1.8) 11/09/17 06:50 Lymph # 1.3 K/mm3 (1.2-5.4) 11/09/17 06:50 [place] # 1.4 K/mm3 (0.0-0.8) H 11/09/17 06:50 Eos # 0.0 K/mm3 (0.0-0.4) 11/09/17 06:50 Baso # 0.0 K/mm3 (0.0-0.1) 11/09/17 06:50 Add Manual Diff Complete 11/12/17 04:33 Total Counted 100 11/12/17 04:33 Seg Neutrophils % Aids Social Worker 11/12/17 04:33 Seg Neuts % (Manual) 88.0 % (40.0-70.0) H 11/12/17 04:33 Band Neutrophils % 3.0 % 11/12/17 04:33 Lymphocytes % (Manual) 5.0 % (13.4-35.0) L 11/12/17 04:33 Reactive Lymphs % (Man) 0 % 11/12/17 04:33 Monocytes % (Manual) 4.0 % (0.0-7.3) 11/12/17 04:33 Eosinophils % (Manual) 0 % (0.0-4.3) 11/12/17 04:33 Basophils % (Manual) 0 % (0.0-1.8) 11/12/17 04:33 Metamyelocytes % 0 % 11/12/17 04:33 Myelocytes % 0 % 11/12/17 04:33 Promyelocytes % 0 % 11/12/17 04:33 Blast Cells % 0 % 11/12/17 04:33 Nucleated RBC % Not Reportable 11/12/17 04:33 Seg Neutrophils # 15.0 K/mm3 (1.8-7.7) H 11/09/17 06:50 Seg Neutrophils # Man 13.4 K/mm3 (1.8-7.7) H 11/12/17 04:33 Band Neutrophils # 0.5 K/mm3 11/12/17 04:33 Lymphocytes # (Manual) 0.8 K/mm3 (1.2-5.4) L 11/12/17 04:33 Abs React Lymphs (Man) 0.0 K/mm3 11/12/17 04:33 Monocytes # (Manual) 0.6 K/mm3 (0.0-0.8) 11/12/17 04:33 Eosinophils # (Manual) 0.0 K/mm3 (0.0-0.4) 11/12/17 04:33 Basophils # (Manual) 0.0 K/mm3 (0.0-0.1) 11/12/17 04:33 Metamyelocytes # 0.0 K/mm3 11/12/17 04:33 Myelocytes # 0.0 K/mm3 11/12/17 04:33 Promyelocytes # 0.0 K/mm3 11/12/17 04:33 Blast Cells # 0.0 K/mm3 11/12/17 04:33 WBC Morphology Not Reportable 11/12/17 04:33 Hypersegmented Neuts Not Reportable 11/12/17 04:33 Hyposegmented Neuts Not Reportable 11/12/17 04:33 Hypogranular Neuts Not Reportable 11/12/17 04:33 Smudge Cells Not Reportable 11/12/17 04:33 Toxic Granulation Not Reportable 11/12/17 04:33 Toxic Vacuolation Not Reportable 11/12/17 04:33 Dohle Bodies Not Reportable 11/12/17 04:33 Pelger-Huet Anomaly Not Reportable 11/12/17 04:33 Kam Rods Not Reportable 11/12/17 04:33 Platelet Estimate Consistent w auto 11/12/17 04:33 Clumped Platelets Not Reportable 11/12/17 04:33 Plt Clumps, EDTA Not Reportable 11/12/17 04:33 Large Platelets Not Reportable 11/12/17 04:33 Giant Platelets Not Reportable 11/12/17 04:33 Platelet Satelliting Not Reportable 11/12/17 04:33 Plt Morphology Comment Not Reportable 11/12/17 04:33 RBC Morphology Not Reportable 11/12/17 04:33 Dimorphic RBCs Yes 11/12/17 04:33 Polychromasia Not Reportable 11/12/17 04:33 Hypochromasia Not Reportable 11/12/17 04:33 Poikilocytosis Not Reportable 11/12/17 04:33 Anisocytosis Not Reportable 11/12/17 04:33 Microcytosis Not Reportable 11/12/17 04:33 Macrocytosis Not Reportable 11/12/17 04:33 Spherocytes Not Reportable 11/12/17 04:33 Pappenheimer Bodies Not Reportable 11/12/17 04:33 Sickle Cells Not Reportable 11/12/17 04:33 Target Cells Not Reportable 11/12/17 04:33 Tear Drop Cells Not Reportable 11/12/17 04:33 Ovalocytes Not Reportable 11/12/17 04:33 Helmet Cells Not Reportable 11/12/17 04:33 [place] Bodies Not Reportable 11/12/17 04:33 [place] Rings Not Reportable 11/12/17 04:33 [place] Cells Not Reportable 11/12/17 04:33 Bite Cells Not Reportable 11/12/17 04:33 Crenated Cell Not Reportable 11/12/17 04:33 Elliptocytes Not Reportable 11/12/17 04:33 Acanthocytes (Spur) Not Reportable 11/12/17 04:33 Rouleaux Not Reportable 11/12/17 04:33 Hemoglobin C Crystals Not Reportable 11/12/17 04:33 Schistocytes Not Reportable 11/12/17 04:33 Malaria parasites Not Reportable 11/12/17 04:33 ESR 42 mm/Hr (0-20) 10/27/17 05:15 Percent Retic 0.89 % (0.78-2.58) 10/27/17 17:16 Nasir Bodies Not Reportable 11/12/17 04:33 Haptoglobin 88 mg/dL (43-212) 10/26/17 13:46 Hem Pathologist Commnt No 11/12/17 04:33 PT 13.0 Sec. (12.2-14.9) 10/31/17 04:56 INR 0.94 (0.87-1.13) 10/31/17 04:56 APTT 30.9 Sec. (24.2-36.6) 10/25/17 15:28 Sodium 136 mmol/L (137-145) L 11/12/17 04:33 Potassium 4.8 mmol/L (3.6-5.0) 11/12/17 04:33 Chloride 93.3 mmol/L (98-107) L 11/12/17 04:33 Carbon Dioxide 27 mmol/L (22-30) 11/12/17 04:33 Anion Gap 21 mmol/L 11/12/17 04:33 BUN 40 mg/dL (9-20) H 11/12/17 04:33 Creatinine 4.9 mg/dL (0.8-1.5) H 11/12/17 04:33 Estimated GFR 17 ml/min 11/12/17 04:33 BUN/Creatinine Ratio 8 % 11/12/17 04:33 Glucose 107 mg/dL (75-100) H 11/12/17 04:33 POC Glucose 117 (70-105) H 10/25/17 16:33 Hemoglobin A1c 6.9 % (4-6) H 10/25/17 14:37 Calcium 8.8 mg/dL (8.4-10.2) 11/12/17 04:33 Phosphorus 6.10 mg/dL (2.5-4.5) H 11/06/17 05:20 Iron 63 ug/dL (49-181) 10/26/17 13:46 TIBC 144 mcg/dL (250-450) L 10/26/17 13:46 % Saturation 43.75 % 10/26/17 13:46 Transferrin 130 mg/dl (180-329) L 10/26/17 13:46 Ferritin 1014.0 ng/mL (13.0-400.0) H 10/26/17 13:46 Total Bilirubin 0.30 mg/dL (0.1-1.2) 11/12/17 04:33 AST 19 units/L (5-40) 11/12/17 04:33 ALT 54 units/L (7-56) 11/12/17 04:33 Alkaline Phosphatase 64 units/L (35-129) 11/12/17 04:33 Lactate Dehydrogenase 237 units/L (91-180) H 11/01/17 05:26 Serum Total Protein 5.8 g/dL (6.1-8.1) L 10/27/17 17:10 Total Protein 5.8 g/dL (6.3-8.2) L 11/12/17 04:33 Albumin 3.1 g/dL (3.9-5) L 11/12/17 04:33 Albumin/Globulin Ratio 1.1 % 11/12/17 04:33 Pdpea-9-Hcoascpus 0.4 g/dL (0.2-0.3) H 10/27/17 17:10 Hcdop-0-Drkfnwpus 0.7 g/dL (0.5-0.9) 10/27/17 17:10 Beta Globulins 0.4 g/dL (0.2-0.5) 10/27/17 17:10 Gamma Globulins 1.2 g/dL (0.8-1.7) 10/27/17 17:10 Abnorm Protein Band 1 see below 10/27/17 17:10 PEP Interpretation see below H 10/27/17 17:10 Amylase 247 units/L (27-131) H 10/25/17 14:37 Lipase 152 units/L (13-60) H 10/25/17 14:37 Vitamin B12 761.2 pg/mL (211-911) 10/27/17 17:17 25-OH Vitamin D Total 17 ng/mL (30-100) L 10/29/17 05:10 25-Hydroxy Vitamin D2 . 10/29/17 05:10 25-Hydroxy Vitamin D3 . 10/29/17 05:10 Folate > 20.00 ng/mL (7.3-26.0) 10/26/17 13:46 PTH Intact 516.1 pg/mL (15-65) H 10/28/17 08:07 Urine Color Margo (Yellow) 11/04/17 05:13 Urine Turbidity Turbid (Clear) 11/04/17 05:13 Urine pH 5.0 (5.0-7.0) 11/04/17 05:13 Ur Specific [place] 1.018 (1.003-1.030) 11/04/17 05:13 Urine Protein >500 mg/dL (Negative) 11/04/17 05:13 Urine Glucose (UA) Neg mg/dL (Negative) 11/04/17 05:13 Urine Ketones Neg mg/dL (Negative) 11/04/17 05:13 Urine Blood Sm (Negative) 11/04/17 05:13 Urine Nitrite Neg (Negative) 11/04/17 05:13 Urine Bilirubin Neg (Negative) 11/04/17 05:13 Urine Urobilinogen < 2.0 mg/dL (<2.0) 11/04/17 05:13 Ur Leukocyte Esterase Lg (Negative) 11/04/17 05:13 Urine WBC (Auto) 93.0 /HPF (0.0-6.0) H 11/04/17 05:13 Urine RBC (Auto) 38.0 /HPF (0.0-6.0) 11/04/17 05:13 U Epithel Cells (Auto) 3.0 /HPF (0-13.0) 11/04/17 05:13 Urine Bacteria (Auto) 2+ /HPF (Negative) 11/04/17 05:13 Urine WBC Clumps 1+ /HPF 11/04/17 05:13 Amorphous Crystals Few 11/04/17 05:13 Hyaline Casts 30 /LPF 11/04/17 05:13 Urine Mucus Few /HPF 11/04/17 05:13 Urine Eosinophils 2% (None Seen) 10/25/17 21:44 Urine Creatinine 87.5 mg/dL (0.1-20.0) H 10/25/17 21:44 Protein/Creatinin Ratio 9.92 10/25/17 21:44 Urine Sodium 56 mmol/L 10/25/17 21:44 Urine Total Protein 868 mg/dL (5-11.8) H 10/25/17 21:44 YAMILET Screen Positive (Negative) H 10/25/17 16:22 YAMILET Titer 1:640 (Negative) H 10/25/17 16:22 YAMILET Pattern Speckled 10/25/17 16:22 Proteinase 3 (PR3) Ab <1.0 AI (<1.0) 10/25/17 16:22 Myeloperoxidase Ab <1.0 AI (<1.0) 10/25/17 16:22 Double Strand DNA Ab 39 IU/mL (<=4) H 10/25/17 16:22 Glomerular Base Mem IgG <1.0 AI (<1.0) 10/25/17 16:22 Complement C3 <15 mg/dL (90-180) L 10/25/17 16:22 Complement C4 27 mg/dL (16-47) 10/25/17 16:22 Hep Bs Antigen Non-reactive (Negative) 10/25/17 16:31 Hepatitis C Antibody Non-reactive (NonReactive) 10/25/17 16:30 HIV 1&2 Antibody Rapid Non react (Non React) 10/25/17 16:22 HIV P24 Antigen Non react (Non React) 10/25/17 16:22 Schistocytes Smear Rare 10/27/17 17:16 Renal Biopsy Scanned into med rec 10/31/17 10:02 Miscellaneous Test Flexitest 1 10/27/17 08:30 Blood Type B POSITIVE 10/31/17 00:56 Antibody Screen Negative 10/31/17 00:56 Crossmatch See Detail 10/31/17 00:56
[2017-11-12] MEDS: ROXICODONE PO PRN (18:59)
[2017-11-13] MEDS: DILAUDID IV PRN ×3 (02:36→20:25)
[2017-11-13] MEDS: CATAPRES PO SCH ×3 (02:44→18:50)
[2017-11-13] MEDS: RENVELA PO SCH ×3 (08:06→16:46)
--- NOTE | 2017-11-13 09:40 | Progress Note ---
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 Per Hematology oncologist, rest of the workup as outpatient (4) Hypertension Current Visit: Yes Status: Chronic Qualifiers: Hypertension type: essential hypertension Qualified Code(s): I10 - Essential (primary) hypertension Plan to address problem: Continue on anti-hypertensive agents (5) Lupus Current Visit: Yes Status: Chronic Qualifiers: Systemic lupus erythematosus type: unspecified Plan to address problem: On Plaqeunil and Prednisone. As per primary team (6) Hyperthyroidism Current Visit: No Status: Acute Plan to address problem: On Tapazole Subjective Date of service: 11/13/17 Principal diagnosis: ARF/CKD Acute Hemolytic anemia Interval history: Patient seen sitting up in bed. RN at bedside. States he is doing ok. Objective - Vital Signs Vital signs: Vital Signs - 12hr 11/12/17 11/12/17 11/12/17 22:00 22:37 22:43 Temperature 99.2 F Pulse Rate 88 Pulse Rate [ 84 Radial] Respiratory Rate Blood Pressure 116/72 116/72 O2 Sat by Pulse Oximetry 11/12/17 11/13/17 11/13/17 23:38 02:33 02:36 Temperature 98.3 F 98.9 F Pulse Rate 70 Pulse Rate [ Radial] Respiratory 18 20 20 Rate Blood Pressure 128/73 114/63 O2 Sat by Pulse 99 Oximetry 11/13/17 11/13/17 11/13/17 02:44 07:57 08:13 Temperature 97.8 F Pulse Rate 80 77 Pulse Rate [ Radial] Respiratory 18 22 Rate Blood Pressure 116/63 128/77 O2 Sat by Pulse 99 Oximetry - General Appearance General appearance: well-developed, well-nourished, appears stated age EENT: ATNC, PERRL, hearing intact, vision intact Neck: no JVD, supple Respiratory: Present: Clear to Ascultation Cardiology: regular, S1S2 Gastrointestinal: normoactive bowel sounds Integumentary: warm and dry Neurologic: alert and oriented x3 Musculoskeletal: other (No edema) Psychiatric: mood/affect appropriate - Lab 11/12/17 04:33 11/12/17 04:33 Most recent lab results Calcium 8.8 mg/dL (8.4-10.2) 11/12/17 04:33 Phosphorus 6.10 mg/dL (2.5-4.5) H 11/06/17 05:20 Urine Creatinine 87.5 mg/dL (0.1-20.0) H 10/25/17 21:44 Urine Sodium 56 mmol/L 10/25/17 21:44 Urine Total Protein 868 mg/dL (5-11.8) H 10/25/17 21:44
[2017-11-13] MEDS: DELTASONE PO SCH (09:50)
[2017-11-13] MEDS: THERAGRAN Tab PO SCH (09:50)
[2017-11-13] MEDS: ROCALTROL PO SCH (09:50)
[2017-11-13] MEDS: PLAQUENIL PO SCH (09:50)
[2017-11-13] MEDS: CELLCEPT PO SCH ×2 (09:50→21:41)
[2017-11-13] MEDS: TAPAZOLE PO SCH (09:50)
[2017-11-13] MEDS: NORMODYNE PO SCH ×2 (09:51→21:41)
[2017-11-13] MEDS: NORVASC PO SCH (09:53)
[2017-11-13] MEDS: HEPARIN SUB-Q SCH ×2 (09:59→21:40)
[2017-11-13] MEDS: ROXICODONE PO PRN (14:48)
[2017-11-13] MEDS: PERCOCET 5/325 PO PRN (14:49)
--- NOTE | 2017-11-13 18:58 | Progress Note ---
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; Received 3 cycles of plasmapheresis.rest of the workup as outpatient but hematology --Sepsis sec to Enterobacter aerogens UTI; received 5 doses of Levaquin per ID --Hyperthyroidism, On methimazole --Hypertension ;moderate control ,on antihypertensives and PRN medications --DVT prophylaxis, Heparin --DC planning; outpatient HD chair scheduling per case management Plan of care discussed with the patient History Interval history: Patient seen and examined No new complaints Awaiting outpatient HD scheduling Hospitalist Physical - Constitutional Vitals: Temp Pulse Resp BP Pulse Ox 98.1 F 73 20 114/70 99 11/13/17 15:31 11/13/17 18:50 11/13/17 15:49 11/13/17 18:50 11/13/17 15:31 General appearance: Present: no acute distress, well-nourished - EENT Eyes: Present: PERRL, EOM intact - Neck Neck: Present: supple, normal ROM - Respiratory Respiratory effort: normal Respiratory: negative: rales, rhonchi, wheezing - Cardiovascular Rhythm: regular Heart Sounds: Present: S1 & S2 - Extremities Extremities: no ischemia, No edema - Abdominal General gastrointestinal: soft, non-tender, non-distended, normal bowel sounds - Integumentary Integumentary: Present: clear, warm - Psychiatric Psychiatric: appropriate mood/affect - Neurologic Neurologic: CNII-XII intact, moves all extremities Results - Labs CBC & Chem 7: 11/12/17 04:33 11/12/17 04:33 Labs: Laboratory Last Values WBC 15.2 K/mm3 (4.5-11.0) H 11/12/17 04:33 RBC 2.90 M/mm3 (3.65-5.03) L 11/12/17 04:33 Hgb 8.8 gm/dl (11.8-15.2) L 11/12/17 04:33 Hct 26.6 % (35.5-45.6) L 11/12/17 04:33 MCV 92 fl (84-94) 11/12/17 04:33 MCH 30 pg (28-32) 11/12/17 04:33 MCHC 33 % (32-34) 11/12/17 04:33 RDW 19.3 % (13.2-15.2) H 11/12/17 04:33 Plt Count 133 K/mm3 (140-440) L 11/12/17 04:33 Lymph % (Auto) 7.6 % (13.4-35.0) L 11/09/17 06:50 Winn % (Auto) 7.6 % (0.0-7.3) H 11/09/17 06:50 Eos % (Auto) 0.0 % (0.0-4.3) 11/09/17 06:50 Baso % (Auto) 0.1 % (0.0-1.8) 11/09/17 06:50 Lymph # 1.3 K/mm3 (1.2-5.4) 11/09/17 06:50 Winn # 1.4 K/mm3 (0.0-0.8) H 11/09/17 06:50 Eos # 0.0 K/mm3 (0.0-0.4) 11/09/17 06:50 Baso # 0.0 K/mm3 (0.0-0.1) 11/09/17 06:50 Add Manual Diff Complete 11/12/17 04:33 Total Counted 100 11/12/17 04:33 Seg Neutrophils % [employer] 11/12/17 04:33 Seg Neuts % (Manual) 88.0 % (40.0-70.0) H 11/12/17 04:33 Band Neutrophils % 3.0 % 11/12/17 04:33 Lymphocytes % (Manual) 5.0 % (13.4-35.0) L 11/12/17 04:33 Reactive Lymphs % (Man) 0 % 11/12/17 04:33 Monocytes % (Manual) 4.0 % (0.0-7.3) 11/12/17 04:33 Eosinophils % (Manual) 0 % (0.0-4.3) 11/12/17 04:33 Basophils % (Manual) 0 % (0.0-1.8) 11/12/17 04:33 Metamyelocytes % 0 % 11/12/17 04:33 Myelocytes % 0 % 11/12/17 04:33 Promyelocytes % 0 % 11/12/17 04:33 Blast Cells % 0 % 11/12/17 04:33 Nucleated RBC % Not Reportable 11/12/17 04:33 Seg Neutrophils # 15.0 K/mm3 (1.8-7.7) H 11/09/17 06:50 Seg Neutrophils # Man 13.4 K/mm3 (1.8-7.7) H 11/12/17 04:33 Band Neutrophils # 0.5 K/mm3 11/12/17 04:33 Lymphocytes # (Manual) 0.8 K/mm3 (1.2-5.4) L 11/12/17 04:33 Abs React Lymphs (Man) 0.0 K/mm3 11/12/17 04:33 Monocytes # (Manual) 0.6 K/mm3 (0.0-0.8) 11/12/17 04:33 Eosinophils # (Manual) 0.0 K/mm3 (0.0-0.4) 11/12/17 04:33 Basophils # (Manual) 0.0 K/mm3 (0.0-0.1) 11/12/17 04:33 Metamyelocytes # 0.0 K/mm3 11/12/17 04:33 Myelocytes # 0.0 K/mm3 11/12/17 04:33 Promyelocytes # 0.0 K/mm3 11/12/17 04:33 Blast Cells # 0.0 K/mm3 11/12/17 04:33 WBC Morphology Not Reportable 11/12/17 04:33 Hypersegmented Neuts Not Reportable 11/12/17 04:33 Hyposegmented Neuts Not Reportable 11/12/17 04:33 Hypogranular Neuts Not Reportable 11/12/17 04:33 Smudge Cells Not Reportable 11/12/17 04:33 Toxic Granulation Not Reportable 11/12/17 04:33 Toxic Vacuolation Not Reportable 11/12/17 04:33 Dohle Bodies Not Reportable 11/12/17 04:33 Pelger-Huet Anomaly Not Reportable 11/12/17 04:33 Kam Rods Not Reportable 11/12/17 04:33 Platelet Estimate Consistent w auto 11/12/17 04:33 Clumped Platelets Not Reportable 11/12/17 04:33 Plt Clumps, EDTA Not Reportable 11/12/17 04:33 Large Platelets Not Reportable 11/12/17 04:33 Giant Platelets Not Reportable 11/12/17 04:33 Platelet Satelliting Not Reportable 11/12/17 04:33 Plt Morphology Comment Not Reportable 11/12/17 04:33 RBC Morphology Not Reportable 11/12/17 04:33 Dimorphic RBCs Yes 11/12/17 04:33 Polychromasia Not Reportable 11/12/17 04:33 Hypochromasia Not Reportable 11/12/17 04:33 Poikilocytosis Not Reportable 11/12/17 04:33 Anisocytosis Not Reportable 11/12/17 04:33 Microcytosis Not Reportable 11/12/17 04:33 Macrocytosis Not Reportable 11/12/17 04:33 Spherocytes Not Reportable 11/12/17 04:33 Pappenheimer Bodies Not Reportable 11/12/17 04:33 Sickle Cells Not Reportable 11/12/17 04:33 Target Cells Not Reportable 11/12/17 04:33 Tear Drop Cells Not Reportable 11/12/17 04:33 Ovalocytes Not Reportable 11/12/17 04:33 Helmet Cells Not Reportable 11/12/17 04:33 [place] Bodies Not Reportable 11/12/17 04:33 Edgar Rings Not Reportable 11/12/17 04:33 [place] Cells Not Reportable 11/12/17 04:33 Bite Cells Not Reportable 11/12/17 04:33 Crenated Cell Not Reportable 11/12/17 04:33 Elliptocytes Not Reportable 11/12/17 04:33 Acanthocytes (Spur) Not Reportable 11/12/17 04:33 Rouleaux Not Reportable 11/12/17 04:33 Hemoglobin C Crystals Not Reportable 11/12/17 04:33 Schistocytes Not Reportable 11/12/17 04:33 Malaria parasites Not Reportable 11/12/17 04:33 ESR 42 mm/Hr (0-20) 10/27/17 05:15 Percent Retic 0.89 % (0.78-2.58) 10/27/17 17:16 Nasir Bodies Not Reportable 11/12/17 04:33 Haptoglobin 88 mg/dL (43-212) 10/26/17 13:46 Hem Pathologist Commnt No 11/12/17 04:33 PT 13.0 Sec. (12.2-14.9) 10/31/17 04:56 INR 0.94 (0.87-1.13) 10/31/17 04:56 APTT 30.9 Sec. (24.2-36.6) 10/25/17 15:28 Sodium 136 mmol/L (137-145) L 11/12/17 04:33 Potassium 4.8 mmol/L (3.6-5.0) 11/12/17 04:33 Chloride 93.3 mmol/L (98-107) L 11/12/17 04:33 Carbon Dioxide 27 mmol/L (22-30) 11/12/17 04:33 Anion Gap 21 mmol/L 11/12/17 04:33 BUN 40 mg/dL (9-20) H 11/12/17 04:33 Creatinine 4.9 mg/dL (0.8-1.5) H 11/12/17 04:33 Estimated GFR 17 ml/min 11/12/17 04:33 BUN/Creatinine Ratio 8 % 11/12/17 04:33 Glucose 107 mg/dL (75-100) H 11/12/17 04:33 POC Glucose 117 (70-105) H 10/25/17 16:33 Hemoglobin A1c 6.9 % (4-6) H 10/25/17 14:37 Calcium 8.8 mg/dL (8.4-10.2) 11/12/17 04:33 Phosphorus 6.10 mg/dL (2.5-4.5) H 11/06/17 05:20 Iron 63 ug/dL (49-181) 10/26/17 13:46 TIBC 144 mcg/dL (250-450) L 10/26/17 13:46 % Saturation 43.75 % 10/26/17 13:46 Transferrin 130 mg/dl (180-329) L 10/26/17 13:46 Ferritin 1014.0 ng/mL (13.0-400.0) H 10/26/17 13:46 Total Bilirubin 0.30 mg/dL (0.1-1.2) 11/12/17 04:33 AST 19 units/L (5-40) 11/12/17 04:33 ALT 54 units/L (7-56) 11/12/17 04:33 Alkaline Phosphatase 64 units/L (35-129) 11/12/17 04:33 Lactate Dehydrogenase 237 units/L (91-180) H 11/01/17 05:26 Serum Total Protein 5.8 g/dL (6.1-8.1) L 10/27/17 17:10 Total Protein 5.8 g/dL (6.3-8.2) L 11/12/17 04:33 Albumin 3.1 g/dL (3.9-5) L 11/12/17 04:33 Albumin/Globulin Ratio 1.1 % 11/12/17 04:33 Jmjgt-4-Dejhmsnci 0.4 g/dL (0.2-0.3) H 10/27/17 17:10 Bppud-0-Fauwdqvxg 0.7 g/dL (0.5-0.9) 10/27/17 17:10 Beta Globulins 0.4 g/dL (0.2-0.5) 10/27/17 17:10 Gamma Globulins 1.2 g/dL (0.8-1.7) 10/27/17 17:10 Abnorm Protein Band 1 see below 10/27/17 17:10 PEP Interpretation see below H 10/27/17 17:10 Amylase 247 units/L (27-131) H 10/25/17 14:37 Lipase 152 units/L (13-60) H 10/25/17 14:37 Vitamin B12 761.2 pg/mL (211-911) 10/27/17 17:17 25-OH Vitamin D Total 17 ng/mL (30-100) L 10/29/17 05:10 25-Hydroxy Vitamin D2 . 10/29/17 05:10 25-Hydroxy Vitamin D3 . 10/29/17 05:10 Folate > 20.00 ng/mL (7.3-26.0) 10/26/17 13:46 PTH Intact 516.1 pg/mL (15-65) H 10/28/17 08:07 Urine Color Margo (Yellow) 11/04/17 05:13 Urine Turbidity Turbid (Clear) 11/04/17 05:13 Urine pH 5.0 (5.0-7.0) 11/04/17 05:13 Ur Specific [place] 1.018 (1.003-1.030) 11/04/17 05:13 Urine Protein >500 mg/dL (Negative) 11/04/17 05:13 Urine Glucose (UA) Neg mg/dL (Negative) 11/04/17 05:13 Urine Ketones Neg mg/dL (Negative) 11/04/17 05:13 Urine Blood Sm (Negative) 11/04/17 05:13 Urine Nitrite Neg (Negative) 11/04/17 05:13 Urine Bilirubin Neg (Negative) 11/04/17 05:13 Urine Urobilinogen < 2.0 mg/dL (<2.0) 11/04/17 05:13 Ur Leukocyte Esterase Lg (Negative) 11/04/17 05:13 Urine WBC (Auto) 93.0 /HPF (0.0-6.0) H 11/04/17 05:13 Urine RBC (Auto) 38.0 /HPF (0.0-6.0) 11/04/17 05:13 U Epithel Cells (Auto) 3.0 /HPF (0-13.0) 11/04/17 05:13 Urine Bacteria (Auto) 2+ /HPF (Negative) 11/04/17 05:13 Urine WBC Clumps 1+ /HPF 11/04/17 05:13 Amorphous Crystals Few 11/04/17 05:13 Hyaline Casts 30 /LPF 11/04/17 05:13 Urine Mucus Few /HPF 11/04/17 05:13 Urine Eosinophils 2% (None Seen) 10/25/17 21:44 Urine Creatinine 87.5 mg/dL (0.1-20.0) H 10/25/17 21:44 Protein/Creatinin Ratio 9.92 10/25/17 21:44 Urine Sodium 56 mmol/L 10/25/17 21:44 Urine Total Protein 868 mg/dL (5-11.8) H 10/25/17 21:44 YAMILET Screen Positive (Negative) H 10/25/17 16:22 YAMILET Titer 1:640 (Negative) H 10/25/17 16:22 YAMILET Pattern Speckled 10/25/17 16:22 Proteinase 3 (PR3) Ab <1.0 AI (<1.0) 10/25/17 16:22 Myeloperoxidase Ab <1.0 AI (<1.0) 10/25/17 16:22 Double Strand DNA Ab 39 IU/mL (<=4) H 10/25/17 16:22 Glomerular Base Mem IgG <1.0 AI (<1.0) 10/25/17 16:22 Complement C3 <15 mg/dL (90-180) L 10/25/17 16:22 Complement C4 27 mg/dL (16-47) 10/25/17 16:22 Hep Bs Antigen Non-reactive (Negative) 10/25/17 16:31 Hepatitis C Antibody Non-reactive (NonReactive) 10/25/17 16:30 HIV 1&2 Antibody Rapid Non react (Non React) 10/25/17 16:22 HIV P24 Antigen Non react (Non React) 10/25/17 16:22 Schistocytes Smear Rare 10/27/17 17:16 Renal Biopsy Scanned into med rec 10/31/17 10:02 Miscellaneous Test Flexitest 1 10/27/17 08:30 Blood Type B POSITIVE 10/31/17 00:56 Antibody Screen Negative 10/31/17 00:56 Crossmatch See Detail 10/31/17 00:56
[2017-11-14] MEDS: DILAUDID IV PRN ×4 (01:56→21:58)
[2017-11-14] MEDS: CATAPRES PO SCH ×3 (02:02→22:01)
[2017-11-14] MEDS: RENVELA PO SCH ×3 (08:26→18:00)
[2017-11-14] MEDS: ROCALTROL PO SCH (09:59)
[2017-11-14] MEDS: TAPAZOLE PO SCH (09:59)
[2017-11-14] MEDS: DELTASONE PO SCH (09:59)
[2017-11-14] MEDS: PLAQUENIL PO SCH (10:00)
[2017-11-14] MEDS: CELLCEPT PO SCH ×2 (10:00→21:55)
[2017-11-14] MEDS: THERAGRAN Tab PO SCH (10:00)
--- NOTE | 2017-11-14 12:32 | Progress Note ---
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 Per Hematology oncologist, rest of the workup as outpatient (4) Hypertension Current Visit: Yes Status: Chronic Qualifiers: Hypertension type: essential hypertension Qualified Code(s): I10 - Essential (primary) hypertension Plan to address problem: Continue on anti-hypertensive agents (5) Lupus Current Visit: Yes Status: Chronic Qualifiers: Systemic lupus erythematosus type: unspecified Plan to address problem: on prednisone and cellcept (6) Hyperthyroidism Current Visit: No Status: Acute Plan to address problem: On Tapazole Subjective Date of service: 11/14/17 Principal diagnosis: ESRD Interval history: no overnight events Objective - Vital Signs Vital signs: Vital Signs - 12hr 11/14/17 11/14/17 02:02 07:34 Temperature 98.1 F Pulse Rate 74 77 Respiratory 14 Rate Blood Pressure 118/71 126/83 O2 Sat by Pulse 99 Oximetry - General Appearance General appearance: well-developed, well-nourished, appears stated age EENT: ATNC, PERRL, mucous membranes moist Neck: no JVD, no carotid bruit Respiratory: Present: Clear to Ascultation Cardiology: regular, S1S2 Gastrointestinal: normoactive bowel sounds, no tenderness, no distended Integumentary: no rash, warm and dry Neurologic: no focal deficit, no asterixis, alert and oriented x3 Musculoskeletal: deferred Psychiatric: mood/affect appropriate, cooperative - Lab 11/12/17 04:33 11/12/17 04:33 Most recent lab results Calcium 8.8 mg/dL (8.4-10.2) 11/12/17 04:33 Phosphorus 6.10 mg/dL (2.5-4.5) H 11/06/17 05:20 Urine Creatinine 87.5 mg/dL (0.1-20.0) H 10/25/17 21:44 Urine Sodium 56 mmol/L 10/25/17 21:44 Urine Total Protein 868 mg/dL (5-11.8) H 10/25/17 21:44
[2017-11-14] MEDS: HEPARIN SUB-Q SCH ×2 (13:40→21:55)
[2017-11-14] MEDS: NORMODYNE PO SCH ×2 (13:40→21:54)
[2017-11-14] MEDS: PROCRIT SUB-Q SCH ×2 (16:30→16:52)
[2017-11-14] MEDS ORDERED: NACL 0.9 (PRIMING MACHINE ONLY DIALYSIS) MC ONE (16:36)
[2017-11-14] MEDS: NORVASC PO SCH (18:00)
--- NOTE | 2017-11-14 18:15 | Progress Note ---
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; Received 3 cycles of plasmapheresis.rest of the workup as outpatient but hematology --Sepsis sec to Enterobacter aerogens UTI; received 5 doses of Levaquin per ID --Hyperthyroidism, On methimazole --Hypertension ;moderate control ,on antihypertensives and PRN medications --DVT prophylaxis, Heparin --DC planning; outpatient HD chair scheduling per case management Plan of care discussed with the patient History Interval history: Patient seen and examined medical records reviewed No new events reported by the nursing staff Awaiting outpatient HD scheduling by case management Oriented 3 not in acute distress patient has no complaints Hospitalist Physical - Constitutional Vitals: Temp Pulse Resp BP Pulse Ox 98.7 F 79 18 132/83 99 11/14/17 16:35 11/14/17 16:35 11/14/17 16:35 11/14/17 18:00 11/14/17 07:34 General appearance: Present: no acute distress, well-nourished - EENT Eyes: Present: PERRL, EOM intact - Neck Neck: Present: supple, normal ROM - Respiratory Respiratory effort: normal Respiratory: bilateral: diminished, rales, negative: rhonchi, wheezing - Cardiovascular Rhythm: regular Heart Sounds: Present: S1 & S2 - Extremities Extremities: no ischemia, No edema Peripheral Pulses: within normal limits - Abdominal General gastrointestinal: soft, non-tender, non-distended, normal bowel sounds - Integumentary Integumentary: Present: clear, warm - Psychiatric Psychiatric: appropriate mood/affect, cooperative - Neurologic Neurologic: CNII-XII intact, moves all extremities Results - Labs CBC & Chem 7: 11/12/17 04:33 11/12/17 04:33 Labs: Laboratory Last Values WBC 15.2 K/mm3 (4.5-11.0) H 11/12/17 04:33 RBC 2.90 M/mm3 (3.65-5.03) L 11/12/17 04:33 Hgb 8.8 gm/dl (11.8-15.2) L 11/12/17 04:33 Hct 26.6 % (35.5-45.6) L 11/12/17 04:33 MCV 92 fl (84-94) 11/12/17 04:33 MCH 30 pg (28-32) 11/12/17 04:33 MCHC 33 % (32-34) 11/12/17 04:33 RDW 19.3 % (13.2-15.2) H 11/12/17 04:33 Plt Count 133 K/mm3 (140-440) L 11/12/17 04:33 Lymph % (Auto) 7.6 % (13.4-35.0) L 11/09/17 06:50 [place] % (Auto) 7.6 % (0.0-7.3) H 11/09/17 06:50 Eos % (Auto) 0.0 % (0.0-4.3) 11/09/17 06:50 Baso % (Auto) 0.1 % (0.0-1.8) 11/09/17 06:50 Lymph # 1.3 K/mm3 (1.2-5.4) 11/09/17 06:50 [place] # 1.4 K/mm3 (0.0-0.8) H 11/09/17 06:50 Eos # 0.0 K/mm3 (0.0-0.4) 11/09/17 06:50 Baso # 0.0 K/mm3 (0.0-0.1) 11/09/17 06:50 Add Manual Diff Complete 11/12/17 04:33 Total Counted 100 11/12/17 04:33 Seg Neutrophils % Survey Cad Technician 11/12/17 04:33 Seg Neuts % (Manual) 88.0 % (40.0-70.0) H 11/12/17 04:33 Band Neutrophils % 3.0 % 11/12/17 04:33 Lymphocytes % (Manual) 5.0 % (13.4-35.0) L 11/12/17 04:33 Reactive Lymphs % (Man) 0 % 11/12/17 04:33 Monocytes % (Manual) 4.0 % (0.0-7.3) 11/12/17 04:33 Eosinophils % (Manual) 0 % (0.0-4.3) 11/12/17 04:33 Basophils % (Manual) 0 % (0.0-1.8) 11/12/17 04:33 Metamyelocytes % 0 % 11/12/17 04:33 Myelocytes % 0 % 11/12/17 04:33 Promyelocytes % 0 % 11/12/17 04:33 Blast Cells % 0 % 11/12/17 04:33 Nucleated RBC % Not Reportable 11/12/17 04:33 Seg Neutrophils # 15.0 K/mm3 (1.8-7.7) H 11/09/17 06:50 Seg Neutrophils # Man 13.4 K/mm3 (1.8-7.7) H 11/12/17 04:33 Band Neutrophils # 0.5 K/mm3 11/12/17 04:33 Lymphocytes # (Manual) 0.8 K/mm3 (1.2-5.4) L 11/12/17 04:33 Abs React Lymphs (Man) 0.0 K/mm3 11/12/17 04:33 Monocytes # (Manual) 0.6 K/mm3 (0.0-0.8) 11/12/17 04:33 Eosinophils # (Manual) 0.0 K/mm3 (0.0-0.4) 11/12/17 04:33 Basophils # (Manual) 0.0 K/mm3 (0.0-0.1) 11/12/17 04:33 Metamyelocytes # 0.0 K/mm3 11/12/17 04:33 Myelocytes # 0.0 K/mm3 11/12/17 04:33 Promyelocytes # 0.0 K/mm3 11/12/17 04:33 Blast Cells # 0.0 K/mm3 11/12/17 04:33 WBC Morphology Not Reportable 11/12/17 04:33 Hypersegmented Neuts Not Reportable 11/12/17 04:33 Hyposegmented Neuts Not Reportable 11/12/17 04:33 Hypogranular Neuts Not Reportable 11/12/17 04:33 Smudge Cells Not Reportable 11/12/17 04:33 Toxic Granulation Not Reportable 11/12/17 04:33 Toxic Vacuolation Not Reportable 11/12/17 04:33 Dohle Bodies Not Reportable 11/12/17 04:33 Pelger-Huet Anomaly Not Reportable 11/12/17 04:33 Kam Rods Not Reportable 11/12/17 04:33 Platelet Estimate Consistent w auto 11/12/17 04:33 Clumped Platelets Not Reportable 11/12/17 04:33 Plt Clumps, EDTA Not Reportable 11/12/17 04:33 Large Platelets Not Reportable 11/12/17 04:33 Giant Platelets Not Reportable 11/12/17 04:33 Platelet Satelliting Not Reportable 11/12/17 04:33 Plt Morphology Comment Not Reportable 11/12/17 04:33 RBC Morphology Not Reportable 11/12/17 04:33 Dimorphic RBCs Yes 11/12/17 04:33 Polychromasia Not Reportable 11/12/17 04:33 Hypochromasia Not Reportable 11/12/17 04:33 Poikilocytosis Not Reportable 11/12/17 04:33 Anisocytosis Not Reportable 11/12/17 04:33 Microcytosis Not Reportable 11/12/17 04:33 Macrocytosis Not Reportable 11/12/17 04:33 Spherocytes Not Reportable 11/12/17 04:33 Pappenheimer Bodies Not Reportable 11/12/17 04:33 Sickle Cells Not Reportable 11/12/17 04:33 Target Cells Not Reportable 11/12/17 04:33 Tear Drop Cells Not Reportable 11/12/17 04:33 Ovalocytes Not Reportable 11/12/17 04:33 Helmet Cells Not Reportable 11/12/17 04:33 [place] Bodies Not Reportable 11/12/17 04:33 [place] Rings Not Reportable 11/12/17 04:33 Nunu Cells Not Reportable 11/12/17 04:33 Bite Cells Not Reportable 11/12/17 04:33 Crenated Cell Not Reportable 11/12/17 04:33 Elliptocytes Not Reportable 11/12/17 04:33 Acanthocytes (Spur) Not Reportable 11/12/17 04:33 Rouleaux Not Reportable 11/12/17 04:33 Hemoglobin C Crystals Not Reportable 11/12/17 04:33 Schistocytes Not Reportable 11/12/17 04:33 Malaria parasites Not Reportable 11/12/17 04:33 ESR 42 mm/Hr (0-20) 10/27/17 05:15 Percent Retic 0.89 % (0.78-2.58) 10/27/17 17:16 Nasir Bodies Not Reportable 11/12/17 04:33 Haptoglobin 88 mg/dL (43-212) 10/26/17 13:46 Hem Pathologist Commnt No 11/12/17 04:33 PT 13.0 Sec. (12.2-14.9) 10/31/17 04:56 INR 0.94 (0.87-1.13) 10/31/17 04:56 APTT 30.9 Sec. (24.2-36.6) 10/25/17 15:28 Sodium 136 mmol/L (137-145) L 11/12/17 04:33 Potassium 4.8 mmol/L (3.6-5.0) 11/12/17 04:33 Chloride 93.3 mmol/L (98-107) L 11/12/17 04:33 Carbon Dioxide 27 mmol/L (22-30) 11/12/17 04:33 Anion Gap 21 mmol/L 11/12/17 04:33 BUN 40 mg/dL (9-20) H 11/12/17 04:33 Creatinine 4.9 mg/dL (0.8-1.5) H 11/12/17 04:33 Estimated GFR 17 ml/min 11/12/17 04:33 BUN/Creatinine Ratio 8 % 11/12/17 04:33 Glucose 107 mg/dL (75-100) H 11/12/17 04:33 POC Glucose 117 (70-105) H 10/25/17 16:33 Hemoglobin A1c 6.9 % (4-6) H 10/25/17 14:37 Calcium 8.8 mg/dL (8.4-10.2) 11/12/17 04:33 Phosphorus 6.10 mg/dL (2.5-4.5) H 11/06/17 05:20 Iron 63 ug/dL (49-181) 10/26/17 13:46 TIBC 144 mcg/dL (250-450) L 10/26/17 13:46 % Saturation 43.75 % 10/26/17 13:46 Transferrin 130 mg/dl (180-329) L 10/26/17 13:46 Ferritin 1014.0 ng/mL (13.0-400.0) H 10/26/17 13:46 Total Bilirubin 0.30 mg/dL (0.1-1.2) 11/12/17 04:33 AST 19 units/L (5-40) 11/12/17 04:33 ALT 54 units/L (7-56) 11/12/17 04:33 Alkaline Phosphatase 64 units/L (35-129) 11/12/17 04:33 Lactate Dehydrogenase 237 units/L (91-180) H 11/01/17 05:26 Serum Total Protein 5.8 g/dL (6.1-8.1) L 10/27/17 17:10 Total Protein 5.8 g/dL (6.3-8.2) L 11/12/17 04:33 Albumin 3.1 g/dL (3.9-5) L 11/12/17 04:33 Albumin/Globulin Ratio 1.1 % 11/12/17 04:33 Uiwsb-8-Zbqsnophs 0.4 g/dL (0.2-0.3) H 10/27/17 17:10 Wamfc-1-Dxxasyoyf 0.7 g/dL (0.5-0.9) 10/27/17 17:10 Beta Globulins 0.4 g/dL (0.2-0.5) 10/27/17 17:10 Gamma Globulins 1.2 g/dL (0.8-1.7) 10/27/17 17:10 Abnorm Protein Band 1 see below 10/27/17 17:10 PEP Interpretation see below H 10/27/17 17:10 Amylase 247 units/L (27-131) H 10/25/17 14:37 Lipase 152 units/L (13-60) H 10/25/17 14:37 Vitamin B12 761.2 pg/mL (211-911) 10/27/17 17:17 25-OH Vitamin D Total 17 ng/mL (30-100) L 10/29/17 05:10 25-Hydroxy Vitamin D2 . 10/29/17 05:10 25-Hydroxy Vitamin D3 . 10/29/17 05:10 Folate > 20.00 ng/mL (7.3-26.0) 10/26/17 13:46 PTH Intact 516.1 pg/mL (15-65) H 10/28/17 08:07 Urine Color Margo (Yellow) 11/04/17 05:13 Urine Turbidity Turbid (Clear) 11/04/17 05:13 Urine pH 5.0 (5.0-7.0) 11/04/17 05:13 Ur Specific [place] 1.018 (1.003-1.030) 11/04/17 05:13 Urine Protein >500 mg/dL (Negative) 11/04/17 05:13 Urine Glucose (UA) Neg mg/dL (Negative) 11/04/17 05:13 Urine Ketones Neg mg/dL (Negative) 11/04/17 05:13 Urine Blood Sm (Negative) 11/04/17 05:13 Urine Nitrite Neg (Negative) 11/04/17 05:13 Urine Bilirubin Neg (Negative) 11/04/17 05:13 Urine Urobilinogen < 2.0 mg/dL (<2.0) 11/04/17 05:13 Ur Leukocyte Esterase Lg (Negative) 11/04/17 05:13 Urine WBC (Auto) 93.0 /HPF (0.0-6.0) H 11/04/17 05:13 Urine RBC (Auto) 38.0 /HPF (0.0-6.0) 11/04/17 05:13 U Epithel Cells (Auto) 3.0 /HPF (0-13.0) 11/04/17 05:13 Urine Bacteria (Auto) 2+ /HPF (Negative) 11/04/17 05:13 Urine WBC Clumps 1+ /HPF 11/04/17 05:13 Amorphous Crystals Few 11/04/17 05:13 Hyaline Casts 30 /LPF 11/04/17 05:13 Urine Mucus Few /HPF 11/04/17 05:13 Urine Eosinophils 2% (None Seen) 10/25/17 21:44 Urine Creatinine 87.5 mg/dL (0.1-20.0) H 10/25/17 21:44 Protein/Creatinin Ratio 9.92 10/25/17 21:44 Urine Sodium 56 mmol/L 10/25/17 21:44 Urine Total Protein 868 mg/dL (5-11.8) H 10/25/17 21:44 YAMILET Screen Positive (Negative) H 10/25/17 16:22 YAMILET Titer 1:640 (Negative) H 10/25/17 16:22 YAMILET Pattern Speckled 10/25/17 16:22 Proteinase 3 (PR3) Ab <1.0 AI (<1.0) 10/25/17 16:22 Myeloperoxidase Ab <1.0 AI (<1.0) 10/25/17 16:22 Double Strand DNA Ab 39 IU/mL (<=4) H 10/25/17 16:22 Glomerular Base Mem IgG <1.0 AI (<1.0) 10/25/17 16:22 Complement C3 <15 mg/dL (90-180) L 10/25/17 16:22 Complement C4 27 mg/dL (16-47) 10/25/17 16:22 Hep Bs Antigen Non-reactive (Negative) 10/25/17 16:31 Hepatitis C Antibody Non-reactive (NonReactive) 10/25/17 16:30 HIV 1&2 Antibody Rapid Non react (Non React) 10/25/17 16:22 HIV P24 Antigen Non react (Non React) 10/25/17 16:22 Schistocytes Smear Rare 10/27/17 17:16 Renal Biopsy Scanned into med rec 10/31/17 10:02 Miscellaneous Test Flexitest 1 10/27/17 08:30 Blood Type B POSITIVE 10/31/17 00:56 Antibody Screen Negative 10/31/17 00:56 Crossmatch See Detail 10/31/17 00:56
[2017-11-14] MEDS: HEPARIN IV PRN (22:11)
[2017-11-15] MEDS: CATAPRES PO SCH ×2 (02:43→13:44)
[2017-11-15 06:31] LABS: Hematocrit 24.2 % (35.5-45.6); Mean Corpuscular HGB Conc 33 % (32-34); Mean Corpuscular Hemoglobin 30 pg (28-32); Mean Corpuscular Volume 92 fl (84-94); Platelet Count 155 K/mm3 (140-440); Red Blood Count 2.64 M/mm3 (3.65-5.03); Red Cell Distribution Width 18.6 % (13.2-15.2); White Blood Count 14.1 K/mm3 (4.5-11.0)
[2017-11-15 06:40] LABS: Calcium 8.4 mg/dL (8.4-10.2)
[2017-11-15 08:18] VITALS: BP 136/86
[2017-11-15] MEDS: RENVELA PO SCH ×2 (08:34→13:38)
[2017-11-15] MEDS: DILAUDID IV PRN (08:44)
--- NOTE | 2017-11-15 09:52 | Progress Note ---
Assessment and Plan (1) End stage kidney disease Current Visit: Yes Status: Acute Plan to address problem: ESRD secondary to Hypertensive Nephrosclerosis and Lupus Nephritis no indication for HD today he was accepted in [facility] 10:25 am, ok to be discharged from renal standpoint, he will be followed in dialysis clnic cont current Cellecept and prednisone dose on discharge, to be evaulated by rheum as an outpatient Avoid Nephrotoxic agents Renally dose medications Monitor I/O's Assess dialysis needs daily (2) Hyperkalemia Current Visit: Yes Status: Acute Plan to address problem: Resolved (3) Anemia Current Visit: Yes Status: Acute Plan to address problem: DEE DEE with HD (4) Hypertension Current Visit: Yes Status: Chronic Qualifiers: Hypertension type: essential hypertension Qualified Code(s): I10 - Essential (primary) hypertension Plan to address problem: Continue on anti-hypertensive agents (5) Lupus Current Visit: Yes Status: Chronic Qualifiers: Systemic lupus erythematosus type: unspecified Plan to address problem: on prednisone and cellcept (6) Hyperthyroidism Current Visit: No Status: Acute Plan to address problem: On Tapazole Subjective Date of service: 11/15/17 Principal diagnosis: ESRD Interval history: tolerated HD well yesterday Objective - Vital Signs Vital signs: Vital Signs - 12hr 11/14/17 11/14/17 11/14/17 21:54 21:58 22:01 Temperature Pulse Rate 80 80 Respiratory 20 Rate Blood Pressure 146/93 146/93 O2 Sat by Pulse Oximetry 11/14/17 11/14/17 11/15/17 22:17 22:28 02:43 Temperature 98.5 F Pulse Rate 75 75 Respiratory 18 18 Rate Blood Pressure 144/88 144/88 O2 Sat by Pulse 99 Oximetry 11/15/17 07:32 Temperature 98.4 F Pulse Rate 67 Respiratory 14 Rate Blood Pressure 136/86 O2 Sat by Pulse 99 Oximetry - General Appearance General appearance: well-developed, well-nourished, appears stated age EENT: ATNC, PERRL, mucous membranes moist Neck: no JVD, no carotid bruit Respiratory: Present: Clear to Ascultation, Normal Exam Cardiology: regular, S1S2 Integumentary: no rash, warm and dry Neurologic: no focal deficit, no asterixis, alert and oriented x3 Musculoskeletal: other (no edema in BLE) Psychiatric: mood/affect appropriate, cooperative - Lab 11/15/17 05:39 11/15/17 05:39 Most recent lab results Calcium 8.4 mg/dL (8.4-10.2) 11/15/17 05:39 Phosphorus 6.10 mg/dL (2.5-4.5) H 11/06/17 05:20 Urine Creatinine 87.5 mg/dL (0.1-20.0) H 10/25/17 21:44 Urine Sodium 56 mmol/L 10/25/17 21:44 Urine Total Protein 868 mg/dL (5-11.8) H 10/25/17 21:44
--- NOTE | 2017-11-15 11:45 | Discharge Summary ---
Providers - Providers Date of Admission: 10/25/17 20:26 Date of discharge: 11/15/17 Attending physician: DORON SOARES 10/25/17 Consult to Case Management [CONS] Routine Services Needed at Discharge: Home Health Services Dry Man Notified:: SUPERVISOR INSTRUMENT MAINTENANCE 10/25/17 16:26 Consult to Physician [CONS] Stat Consulting Provider: MATEO MICHAELS Reason For Exam: vascular access Place consult to:: phone Notified:: y 10/25/17 20:35 Consult to Physician [CONS] Routine Consulting Provider: ANN JEREZ Reason For Exam: ESRD Place consult to:: Notified:: DR. JEREZ Phone number called:: [phone] Was contact made?: Yes If yes, spoke with:: DR. RAE Time called:: 08:45 Comment:: CONSULT COMPLETED - PAT 10/26/17 10:02 Consult to Physician [CONS] Routine Consulting Provider: EFRAÍN BISWAS Reason For Exam: evaluate for TTP/HUS, schistocytes on smear Place consult to:: DR. BISWAS Notified:: DR. BISWAS Was contact made?: Yes If yes, spoke with:: Office Comment:: DOCTOR TO DOCTOR 11/03/17 12:33 Consult to Physician [CONS] Routine Consulting Provider: MATEO MICHAELS Reason For Exam: permactah placement Place consult to:: Dr. Michaels Notified:: office Phone number called:: [phone] Was contact made?: Yes If yes, spoke with:: ramon Time called:: 12:53 Comment:: recalled [phone] malcolm 11:16 spoke with tre 11/08/17 10:34 Consult to Physician [CONS] Routine Consulting Provider: MATEO MICHAELS Reason For Exam: permcath placement Place consult to:: Ramona Notified:: yes Phone number called:: [phone] If yes, spoke with:: eric Time called:: 13:00 11/08/17 10:35 Consult to Case Management [CONS] Routine Services Needed at Discharge: Other Notified:: yes Time called:: 12:00 Comment:: order given to CM Additional Physician Instructions: ESRD needs outpatient HD [facility] Primary care physician: LICENSED INVESTMENT SALES ASSISTANT Hospitalization Reason for admission: Severe anemia/ARF/severe hyperkalemia Condition: Stable Procedures: Renal US CT guided renal biopsy CXR Rt Femoral vascath placement Perma cath placement Hospital course: 31 yr old male patient with past med h/o Lupus was admitted through ER with severe anemia,hyperkalemia and acute renal failure. Received multiple units PRBC ,evaluated by Nephrology,underwnt hemodialysis Patient had renal biopsy,evaluated by vascular had vascath and later permacath for HD Seen by Compensation Manager for TTP/HUS, managed appropriately and advised f/u out pt for further evaluation and management. Rheumatology service was not available and patient strongly advised to f/u with his private Rheumat KARO upon discharge. social services designee have set up out patient HD. Today patient is comfortable,no new complaints,Vital signs stable. Cleared by all specialist for discharge and f/u with them as out pt upon discharge. Patient is hemodynamically and clinically stable at discharge. 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 , Patient to follow Rheumatology upon discharge [service not available in our hospital] --H/O Lupus on Plaquenil and steroids -- Hyperkalemia: corrected,on HD --Anemia of chronic disease; status post transfusion 3 units of PRBC --possible TTP/HUS; Received 3 cycles of plasmapheresis.rest of the workup as outpatient but hematology --Sepsis sec to Enterobacter aerogens UTI; received 5 doses of Levaquin per ID --Hyperthyroidism, On methimazole --Hypertension ;moderate control ,on antihypertensives and PRN medications Disposition: DC-01 TO HOME OR SELFCARE Time spent for discharge: 33 min Core Measure Documentation - Palliative Care Palliative Care/ Comfort Measures: Not Applicable - Core Measures Any of the following diagnoses?: none Exam - Constitutional Vitals: Temp Pulse Resp BP Pulse Ox 98.4 F 67 14 136/86 99 11/15/17 07:32 11/15/17 07:32 11/15/17 07:32 11/15/17 07:32 11/15/17 07:32 General appearance: Present: no acute distress, well-nourished - EENT Eyes: Present: PERRL, EOM intact - Neck Neck: Present: supple, normal ROM - Respiratory Respiratory effort: normal Respiratory: bilateral: diminished, negative: rales, rhonchi, wheezing - Cardiovascular Rhythm: regular Heart Sounds: Present: S1 & S2 - Extremities Extremities: no ischemia, No edema - Abdominal General gastrointestinal: Present: soft, non-tender, non-distended, normal bowel sounds - Integumentary Integumentary: Present: clear, warm - Musculoskeletal Musculoskeletal: strength equal bilaterally - Psychiatric Psychiatric: appropriate mood/affect, cooperative - Neurologic Neurologic: CNII-XII intact, moves all extremities Plan Activity: no restrictions Diet: renal Additional Instructions: f/u private [employer] at [place] in 3-4 days Follow up with: FRACISCO DEL REAL MD [Staff Physician] - 7 Days EFRAÍN BISWAS MD [Staff Physician] - 7 Days PRIMARY CARE, [Primary Care Provider] - 3-5 Days Prescriptions: amLODIPine [Norvasc] 10 mg PO DAILY #30 tablet Calcitriol [Rocaltrol] 0.5 mcg PO QDAY #30 capsule cloNIDine [Catapres] 0.1 mg PO Q8H #90 tablet Hydroxychloroquine [Plaquenil] 400 mg PO QDAY #60 tablet Labetalol [Normodyne TAB] 300 mg PO BID #60 tablet Methimazole [Tapazole] 5 mg PO QDAY #30 tablet Mycophenolate [Cellcept] 1,500 mg PO BID #60 tablet oxyCODONE /ACETAMINOPHEN [Percocet 5/325 mg] 1 tab PO Q6H PRN #12 tablet PRN Reason: Pain, Moderate (4-6) predniSONE [Deltasone] 60 mg PO DAILY 30 Days tablet Sevelamer Carbonate [Renvela] 1,600 mg PO AC #120 tablet
[2017-11-15] MEDS: TAPAZOLE PO SCH (13:38)
[2017-11-15] MEDS: NORMODYNE PO SCH (13:38)
[2017-11-15] MEDS: PLAQUENIL PO SCH (13:39)
[2017-11-15] MEDS: CELLCEPT PO SCH (13:41)
[2017-11-15] MEDS: DELTASONE PO SCH (13:42)
[2017-11-15] MEDS: ROCALTROL PO SCH (13:43)
[2017-11-15] MEDS: PERCOCET 5/325 PO PRN (13:54)
[2017-11-15] MEDS: NORVASC PO SCH (13:55)
== END 2017-11-15 15:00 | disposition home or self-care (01) | DRG 871 ==
LOC: ED 13:44 → 4A 20:26 → 3A 11-07 23:54
PROVIDERS: ADMIT Internal Medicine; ATTEND Internal Medicine
PROC: 06HM33Z Insertion of Infusion Device into Right Femoral Vein, Percutaneous Approach (ICD-10-PCS; principal; 2017-10-25)
PROC: B54BZZA Ultrasonography of Right Lower Extremity Veins, Guidance (ICD-10-PCS; 2017-10-25)
PROC: 30233N1 Transfusion of Nonautologous Red Blood Cells into Peripheral Vein, Percutaneous Approach (ICD-10-PCS; 2017-10-25)
PROC: 5A1D70Z Performance of Urinary Filtration, Intermittent, Less than 6 Hours Per Day (ICD-10-PCS; 2017-10-25)
PROC: 30233L1 Transfusion of Nonautologous Fresh Plasma into Peripheral Vein, Percutaneous Approach (ICD-10-PCS; 2017-10-26)
PROC: 30233K1 Transfusion of Nonautologous Frozen Plasma into Peripheral Vein, Percutaneous Approach (ICD-10-PCS; 2017-10-26)
PROC: 5A1D70Z Performance of Urinary Filtration, Intermittent, Less than 6 Hours Per Day (ICD-10-PCS; 2017-10-26)
PROC: 5A1D70Z Performance of Urinary Filtration, Intermittent, Less than 6 Hours Per Day (ICD-10-PCS; 2017-10-29)
PROC: 0TB03ZX Excision of Right Kidney, Percutaneous Approach, Diagnostic (ICD-10-PCS; 2017-10-31)
PROC: 5A1D70Z Performance of Urinary Filtration, Intermittent, Less than 6 Hours Per Day (ICD-10-PCS; 2017-10-31)
PROC: 5A1D70Z Performance of Urinary Filtration, Intermittent, Less than 6 Hours Per Day (ICD-10-PCS; 2017-11-02)
PROC: 5A1D70Z Performance of Urinary Filtration, Intermittent, Less than 6 Hours Per Day (ICD-10-PCS; 2017-11-04)
PROC: 5A1D70Z Performance of Urinary Filtration, Intermittent, Less than 6 Hours Per Day (ICD-10-PCS; 2017-11-07)
PROC: 0JH63XZ Insertion of Tunneled Vascular Access Device into Chest Subcutaneous Tissue and Fascia, Percutaneous Approach (ICD-10-PCS; 2017-11-08)
PROC: 02H633Z Insertion of Infusion Device into Right Atrium, Percutaneous Approach (ICD-10-PCS; 2017-11-08)
PROC: B244ZZZ Ultrasonography of Right Heart (ICD-10-PCS; 2017-11-08)
PROC: 5A1D70Z Performance of Urinary Filtration, Intermittent, Less than 6 Hours Per Day (ICD-10-PCS; 2017-11-09)
PROC: 5A1D70Z Performance of Urinary Filtration, Intermittent, Less than 6 Hours Per Day (ICD-10-PCS; 2017-11-11)
PROC: 5A1D70Z Performance of Urinary Filtration, Intermittent, Less than 6 Hours Per Day (ICD-10-PCS; 2017-11-14)
DX: A41.59 Other Gram-negative sepsis (principal); M31.1 Thrombotic microangiopathy; N18.6 End stage renal disease; N17.9 Acute kidney failure, unspecified; E87.2 Acidosis; I12.0 Hypertensive chronic kidney disease with stage 5 chronic kidney disease or end stage renal disease; N39.0 Urinary tract infection, site not specified; E87.5 Hyperkalemia; E05.90 Thyrotoxicosis, unspecified without thyrotoxic crisis or storm; M32.9 Systemic lupus erythematosus, unspecified; D63.1 Anemia in chronic kidney disease; M32.14 Glomerular disease in systemic lupus erythematosus; E83.51 Hypocalcemia; E83.39 Other disorders of phosphorus metabolism; Z79.899 Other long term (current) drug therapy; Z88.0 Allergy status to penicillin; Z88.6 Allergy status to analgesic agent
CPT/HCPCS: 36415; 36514; 36558; 71010; 76770; 77001; 77012; 80048; 80053; 81001; 82150; 82271; 82306; 82570; 82607; 82728; 82747; 82962; 83010; 83036; 83520; 83550; 83615; 83690; 83970; 84100; 84156; 84165; 84300; 85007; 85025; 85045; 85610; 85652; 85730; 86021; 86038; 86160; 86225; 86706; 86803; 86850; 86900; 86901; 86920; 87040; 87076; 87086; 87186; 87806; 88313; 88346; 88348; 89050; 93005; 93010; 94640; 96374; 96375; 96376; 99285; C1750; C9113; J0610; J0885; J1170; J1644; J1815; J1940; J2250; J2405; J2930; J2997; J3010; J7030; J7040; J7050; J7512; J7517; P9016; P9017

== ENCOUNTER 2017-12-15 12:54 | Inpatient (IN) | payer OTHER ==
[2017-12-15 15:28] LABS: Mean Corpuscular HGB Conc 34 % (32-34); Mean Corpuscular Hemoglobin 30 pg (28-32); Mean Corpuscular Volume 90 fl (84-94); Red Blood Count 1.81 M/mm3 (3.65-5.03); Red Cell Distribution Width 15.9 % (13.2-15.2)
[2017-12-15 15:38] LABS: Hematocrit 16.3 % (35.5-45.6); Hemoglobin 5.4 gm/dl (11.8-15.2); INR 0.97 (0.87-1.13)
[2017-12-15 15:39] LABS: Partial Thromboplastin Time 26.6 Sec. (24.2-36.6)
[2017-12-15 15:49] LABS: Alanine Aminotransferase 15 units/L (7-56); Albumin 2.7 g/dL (3.9-5); BUN/Creatinine Ratio 14; Blood Urea Nitrogen 59 mg/dL (9-20); Calcium 7.4 mg/dL (8.4-10.2); Hemolysis Index 3
--- NOTE | 2017-12-15 16:03 | Emergency Department Report ---
- General Chief complaint: Recheck/Abnormal Lab/Rx Stated complaint: LOW BLOOD COUNT Time Seen by Provider: 12/15/17 16:02 Source: patient Mode of arrival: Wheelchair Limitations: No Limitations - History of Present Illness Initial comments: Patient is a 31-year-old asthmatic male past medical history of lupus and end- stage renal disease on dialysis who is presenting with 3 days of shortness of breath fatigued and "cold chills. Patient has had a low hemoglobin with the need of several blood transfusions several months ago. Patient believes this may be the issue again. Patient was sent here from dialysis secondary to a low hemoglobin. Patient denies any chest pain syncope fevers chills nausea vomiting significant recent weight loss MD Complaint: generalized weakness Severity scale (0 -10): 0 Associated Symptoms: shortness of breath. denies: chest pain, confusion, dark stools, diaphoresis, dysuria, easy bruising, fever/chills, nausea/vomiting - Related Data Home Medications Medication Instructions Recorded Confirmed Last Taken Acetaminophen/Diphenhydramine 1 each PO QHS 10/25/17 10/25/17 10/24/17 [Tylenol Pm Ex-Strength Caplet] Multivitamin Tab [Multiple Vitamin 1 each PO QDAY 10/25/17 10/25/17 10/24/17 TAB (Theragran)] Previous Rx's Medication Instructions Recorded Last Taken Type Calcitriol [Rocaltrol] 0.5 mcg PO QDAY #30 capsule 11/02/17 Unknown Rx Hydroxychloroquine [Plaquenil] 400 mg PO QDAY #60 tablet 11/02/17 Unknown Rx Methimazole [Tapazole] 5 mg PO QDAY #30 tablet 11/02/17 Unknown Rx Sevelamer Carbonate [Renvela] 1,600 mg PO AC #120 tablet 11/02/17 Unknown Rx amLODIPine [Norvasc] 10 mg PO DAILY #30 tablet 11/02/17 Unknown Rx cloNIDine [Catapres] 0.1 mg PO Q8H #90 tablet 11/02/17 Unknown Rx oxyCODONE /ACETAMINOPHEN [Percocet 1 tab PO Q6H PRN #12 tablet 11/02/17 Unknown Rx 5/325 mg] Labetalol [Normodyne TAB] 300 mg PO BID #60 tablet 11/15/17 Unknown Rx Mycophenolate [Cellcept] 1,500 mg PO BID #60 tablet 11/15/17 Unknown Rx predniSONE [Deltasone] 60 mg PO DAILY 30 Days tablet 11/15/17 Unknown Rx Allergies Allergy/AdvReac Type Severity Reaction Status Date / Time amoxicillin Allergy Itching Verified 12/15/17 14:42 ibuprofen [From Motrin] Allergy Itching Verified 12/15/17 14:42 ED Review of Systems ROS: Stated complaint: LOW BLOOD COUNT Other details as noted in HPI Comment: All other systems reviewed and negative ED Past Medical Hx - Past Medical History Hx Hypertension: Yes Hx Renal Disease: Yes Additional medical history: Lupus, hyperthyroidism, anemia (unknown etiology) - Surgical History Past Surgical History?: No - Social History Smoking Status: Never Smoker Substance Use Type: None - Medications Home Medications: Home Medications Medication Instructions Recorded Confirmed Last Taken Type Acetaminophen/Diphenhydramine 1 each PO QHS 10/25/17 10/25/17 10/24/17 History [Tylenol Pm Ex-Strength Caplet] Multivitamin Tab [Multiple Vitamin 1 each PO QDAY 10/25/17 10/25/17 10/24/17 History TAB (Theragran)] Calcitriol [Rocaltrol] 0.5 mcg PO QDAY #30 capsule 11/02/17 Unknown Rx Hydroxychloroquine [Plaquenil] 400 mg PO QDAY #60 tablet 11/02/17 Unknown Rx Methimazole [Tapazole] 5 mg PO QDAY #30 tablet 11/02/17 Unknown Rx Sevelamer Carbonate [Renvela] 1,600 mg PO AC #120 tablet 11/02/17 Unknown Rx amLODIPine [Norvasc] 10 mg PO DAILY #30 tablet 11/02/17 Unknown Rx cloNIDine [Catapres] 0.1 mg PO Q8H #90 tablet 11/02/17 Unknown Rx oxyCODONE /ACETAMINOPHEN [Percocet 1 tab PO Q6H PRN #12 tablet 11/02/17 Unknown Rx 5/325 mg] Labetalol [Normodyne TAB] 300 mg PO BID #60 tablet 11/15/17 Unknown Rx Mycophenolate [Cellcept] 1,500 mg PO BID #60 tablet 11/15/17 Unknown Rx predniSONE [Deltasone] 60 mg PO DAILY 30 Days tablet 11/15/17 Unknown Rx ED Physical Exam - General Limitations: No Limitations General appearance: alert, in no apparent distress, other - Head Head exam: Present: atraumatic, normocephalic - Eye Eye exam: Present: normal appearance - ENT ENT exam: Present: mucous membranes moist - Neck Neck exam: Present: normal inspection - Respiratory Respiratory exam: Present: normal lung sounds bilaterally. Absent: respiratory distress, wheezes, rales, rhonchi - Cardiovascular Cardiovascular Exam: Present: regular rate, normal rhythm. Absent: systolic murmur, diastolic murmur, rubs, gallop - GI/Abdominal GI/Abdominal exam: Present: soft, normal bowel sounds. Absent: distended, tenderness, guarding - Rectal Rectal exam: Present: deferred - Extremities Exam Extremities exam: Present: normal inspection - Back Exam Back exam: Present: normal inspection - Neurological Exam Neurological exam: Present: alert, oriented X3 - Psychiatric Psychiatric exam: Present: normal affect, normal mood - Skin Skin exam: Present: warm, dry, intact, normal color. Absent: rash ED Course Vital Signs 12/15/17 14:44 Temperature 98.5 F Pulse Rate 106 H Respiratory 18 Rate Blood Pressure 110/66 O2 Sat by Pulse 100 Oximetry ED Medical Decision Making - Lab Data Result diagrams: 12/15/17 14:56 12/15/17 14:56 - Medical Decision Making So patient is a 31-year-old male who is presenting with a low hemoglobin. Hemoglobin was 5.4. Blood transfusion will be ordered and patient will be admitted to the hospital to this time Dr. Mercado Critical Care Time: Yes Critical care time in (mins) excluding proc time.: 30 Critical care attestation.: If time is entered above; I have spent that time in minutes in the direct care of this critically ill patient, excluding procedure time. ED Disposition Clinical Impression: End stage kidney disease Anemia Qualifiers: Anemia type: unspecified type Qualified Code(s): D64.9 - Anemia, unspecified Lupus Qualifiers: Lupus erythematosus form: unspecified Qualified Code(s): L93.0 - Discoid lupus erythematosus Leukopenia Qualifiers: Leukopenia type: unspecified Qualified Code(s): D72.819 - Decreased white blood cell count, unspecified Disposition: OP ADMIT IP TO THIS HOSP Is pt being admited?: Yes Does the pt Need Aspirin: No Condition: Stable
[2017-12-15] MEDS ORDERED: NACL 0.9% 500 ML 500 ML IV ONE (16:09)
[2017-12-15 16:13] LABS: Basophils % (Manual) 0 % (0.0-1.8); Eosinophils % (Manual) 0 % (0.0-4.3); Total Cells Counted 50
[2017-12-15 16:15] LABS: Platelet Estimate Appears Decreased
[2017-12-15 16:16] LABS: Anisocytosis 1+; Poikilocytosis Few; Tear Drop Cells Few
[2017-12-15 16:19] LABS: Platelet Count 80 K/mm3 (140-440)
--- NOTE | 2017-12-15 16:48 | History and Physical Report ---
History of Present Illness Chief complaint: My blood count is low History of present illness: 31 YO Male with ESRD on HD(M,W,F), SLE, Hyperthyroidism, Anemia secondary to ESRD, HTN presents to ED for evaluation. Pt states that he has experienced weakness, and shortness of breath for the past week, with worsening symptoms over the past 3 days. Pt also complains of fatigue, and cold chills. Patient was sent to [facility] from dialysis secondary to a low hemoglobin. Patient denies fever, chills, chest pain, palpitations, NVD, syncope, unintentional weight loss, night sweats, BRBPR, Trauma, new skin rashes, vertigo, loss of bowel/ bladder continence. Pt seen and evaluated in ED and found to have symptomatic anemia with a Hgb of 5.4 and was admitted to medical floor. Past History Past Medical History: anemia, ESRD, hypertension, other (SLE) Past Surgical History: Other (dialysis access) Social history: single. denies: smoking, alcohol abuse, prescription drug abuse Family history: hypertension Medications and Allergies Allergies Allergy/AdvReac Type Severity Reaction Status Date / Time amoxicillin Allergy Itching Verified 12/15/17 14:42 ibuprofen [From Motrin] Allergy Itching Verified 12/15/17 14:42 Home Medications Medication Instructions Recorded Confirmed Last Taken Type Acetaminophen/Diphenhydramine 1 each PO QHS 10/25/17 10/25/17 10/24/17 History [Tylenol Pm Ex-Strength Caplet] Multivitamin Tab [Multiple Vitamin 1 each PO QDAY 10/25/17 10/25/17 10/24/17 History TAB (Theragran)] Calcitriol [Rocaltrol] 0.5 mcg PO QDAY #30 capsule 11/02/17 Unknown Rx Hydroxychloroquine [Plaquenil] 400 mg PO QDAY #60 tablet 11/02/17 Unknown Rx Methimazole [Tapazole] 5 mg PO QDAY #30 tablet 11/02/17 Unknown Rx Sevelamer Carbonate [Renvela] 1,600 mg PO AC #120 tablet 11/02/17 Unknown Rx amLODIPine [Norvasc] 10 mg PO DAILY #30 tablet 11/02/17 Unknown Rx cloNIDine [Catapres] 0.1 mg PO Q8H #90 tablet 11/02/17 Unknown Rx oxyCODONE /ACETAMINOPHEN [Percocet 1 tab PO Q6H PRN #12 tablet 11/02/17 Unknown Rx 5/325 mg] Labetalol [Normodyne TAB] 300 mg PO BID #60 tablet 11/15/17 Unknown Rx Mycophenolate [Cellcept] 1,500 mg PO BID #60 tablet 11/15/17 Unknown Rx predniSONE [Deltasone] 60 mg PO DAILY 30 Days tablet 11/15/17 Unknown Rx Review of Systems Constitutional: chills, fatigue, weakness, no weight loss, no weight gain, no fever Ears, nose, mouth and throat: no ear pain, no ear discharge, no tinnitis, no decreased hearing, no nose pain, no nasal congestion Cardiovascular: shortness of breath, no chest pain, no orthopnea, no palpitations, no rapid/irregular heart beat, no syncope, no lightheadedness Respiratory: no cough, no cough with sputum, no excessive sputum, no hemoptysis Gastrointestinal: no nausea, no vomiting, no diarrhea, no constipation, no change in bowel habits Genitourinary Male: no dysuria, no hematuria, no flank pain, no discharge, no urinary frequency, no urinary hesitancy Rectal: no pain, no incontinence, no bleeding, no itching Musculoskeletal: no neck stiffness, no neck pain, no shooting arm pain, no arm numbness/tingling, no low back pain, no shooting leg pain Integumentary: no rash, no pruritis, no redness, no sores, no wounds Neurological: no head injury, no transient paralysis, no paralysis, no weakness , no parathesias, no numbness, no tingling Psychiatric: no anxiety, no memory loss, no change in sleep habits, no sleep disturbances, no insomnia, no hypersomnia, no change in appetite Endocrine: no cold intolerance, no heat intolerance, no polyphagia, no excessive thirst, no polydipsia, no polyuria, no nocturia Hematologic/Lymphatic: no easy bruising, no easy bleeding, no lymphadenopathy, no lymphedema Allergic/Immunologic: no urticaria, no allergic rhinitis, no wheezing, no persistent infections, no anaphylaxis Exam - Constitutional Vitals: Temp Pulse Resp BP Pulse Ox 98.5 F 106 H 18 110/66 100 12/15/17 14:44 12/15/17 14:44 12/15/17 14:44 12/15/17 14:44 12/15/17 14:44 General appearance: Present: mild distress - EENT Eyes: Present: PERRL ENT: hearing intact, clear oral mucosa - Neck Neck: Present: supple, normal ROM - Respiratory Respiratory effort: normal Respiratory: bilateral: CTA - Cardiovascular Heart Sounds: Present: S1 & S2. Absent: rub, click - Extremities Extremities: pulses symmetrical, No edema Peripheral Pulses: within normal limits - Abdominal General gastrointestinal: Present: soft, non-tender, non-distended, normal bowel sounds Male genitourinary: Present: normal - Integumentary Integumentary: Present: clear, warm, dry - Musculoskeletal Musculoskeletal: gait normal, strength equal bilaterally - Psychiatric Psychiatric: appropriate mood/affect, intact judgment & insight - Neurologic Neurologic: CNII-XII intact, moves all extremities Results - Labs CBC & Chem 7: 12/15/17 14:56 12/15/17 14:56 Labs: Abnormal lab results 12/15/17 12/15/17 12/15/17 Range/Units 14:56 14:56 14:56 WBC 0.6 L* (4.5-11.0) K/mm3 RBC 1.81 L (3.65-5.03) M/mm3 Hgb 5.4 L* (11.8-15.2) gm/dl Hct 16.3 L* (35.5-45.6) % RDW 15.9 H (13.2-15.2) % Plt Count 80 L (140-440) K/mm3 Nucleated RBC % 2.0 H (0.0-0.9) % Seg Neutrophils # Man 0.4 L (1.8-7.7) K/mm3 Lymphocytes # (Manual) 0.2 L (1.2-5.4) K/mm3 Sodium 136 L (137-145) mmol/L Potassium 3.4 L (3.6-5.0) mmol/L Chloride 94.6 L (98-107) mmol/L BUN 59 H (9-20) mg/dL Creatinine 4.1 H (0.8-1.5) mg/dL Glucose 125 H (75-100) mg/dL Calcium 7.4 L (8.4-10.2) mg/dL Total Protein 5.2 L (6.3-8.2) g/dL Albumin 2.7 L (3.9-5) g/dL Crossmatch See Detail Assessment and Plan - Patient Problems (1) End stage kidney disease Current Visit: Yes Status: Acute Plan to address problem: nephrology consulted, monitor uop q shift, dialysis as per renal team. (2) Lupus Current Visit: Yes Status: Chronic Qualifiers: Lupus erythematosus form: unspecified Qualified Code(s): L93.0 - Discoid lupus erythematosus Plan to address problem: continue plaquenil, steroids, supportive care. (3) Symptomatic anemia Current Visit: No Status: Acute Plan to address problem: PRBC transfusion, hematology consulted, (4) HTN (hypertension) Current Visit: Yes Status: Acute Qualifiers: Hypertension type: essential hypertension Qualified Code(s): I10 - Essential (primary) hypertension Plan to address problem: Monitor BP q shift, continue medical management. (5) Pancytopenia Current Visit: Yes Status: Acute Plan to address problem: Suspect secondary to SLE. continue medical management, Hematology consulted. (6) DVT prophylaxis Current Visit: Yes Status: Acute
[2017-12-15] MEDS ORDERED: ZOFRAN IV PRN (16:49)
[2017-12-15] MEDS ORDERED: PROVENTIL IH PRN (16:49)
[2017-12-15] MEDS ORDERED: TYLENOL PO PRN ×2 (16:49→17:02)
[2017-12-15] MEDS ORDERED: MORPHINE IV ONE (17:10)
[2017-12-15] MEDS ORDERED: ZOFRAN IV ONE (17:10)
[2017-12-15] MEDS: CATAPRES PO SCH (17:57)
--- NOTE | 2017-12-15 18:33 | XRay Report ---
FINAL REPORT PROCEDURE: XR CHEST 1V AP TECHNIQUE: Chest radiograph anteroposterior view. CPT 99396 HISTORY: chest pain COMPARISON: No prior studies are available for comparison. FINDINGS: Heart: Mildly enlarged Mediastinum/Vessels: Normal. Lungs/Pleural space: COPD with lower lung zone atelectasis. Bony thorax: No acute osseous abnormality. Life support devices: Right neck chest catheter tip in the mid to distal right atrium. No pneumothorax is seen.. IMPRESSION: Lung base atelectasis
[2017-12-15] MEDS ORDERED: NORMODYNE ONE (20:28)
[2017-12-15] MEDS ORDERED: BENADRYL PO ONE (20:28)
[2017-12-15] MEDS ORDERED: TYLENOL ONE (20:29)
[2017-12-15] MEDS ORDERED: NON-FORMULARY (Acetaminophen/Diphenhydramine [Tylenol Pm Ex-Strength Caplet] 1 EACH) PO SCH (22:00)
[2017-12-15] MEDS ORDERED: PERCOCET 5/325 ONE (22:41)
[2017-12-15] MEDS: TYLENOL PO SCH (22:44)
[2017-12-15] MEDS: PERCOCET 5/325 PO PRN (22:45)
[2017-12-15] MEDS: BENADRYL PO SCH (22:47)
[2017-12-15] MEDS: NORMODYNE PO SCH (22:50)
[2017-12-15] MEDS: CELLCEPT PO SCH (23:06)
[2017-12-16 00:54] LABS: Bacteria,Urine 1+ /HPF (Negative); Bilirubin,Urine NEG (Negative); Blood,Urine NEG (Negative); Color,Urine Yellow (Yellow); Mucus,Urine FEW /HPF; Nitrite,Urine NEG (Negative); Urobilinogen,Urine < 2.0 mg/dL (<2.0)
[2017-12-16] MEDS: CATAPRES PO SCH ×3 (01:42→17:24)
[2017-12-16] MEDS ORDERED: TAPAZOLE PO SCH (10:00)
[2017-12-16] MEDS ORDERED: DELTASONE PO SCH (10:00)
--- NOTE | 2017-12-16 10:07 | Consultation ---
History of Present Illness - Reason for Consult Consult date: 12/16/17 end stage renal disease - History of Present Illness This is a 31 year old male with a past medical history of Lupus , Hyperthyroidsm and ESRD on hemodialysis. Received critical lab value regarding patient yesterday from labs that were drawn at his dialysis clinic revealing a low hemoglobin of 5.5. Patient was immediately called and referred to this E.R to have HGB repeated. On evaluation in E.R patient was noted to be with Pancytopenia with an HGB level of 5.4, WBC of 0.6 and Platelet count of 80. Patient is admitted for further evaluation and Hematology has been consulted. Patient reports feeling weak and tired over the past few days and feels very cold most of the time. Patient has Lupus and is being followed by Dr. Bear a [facility]. He recently followed up with him on Tuesday and his Prednisone was decreased to 50 mg once per day and is due for follow-up next month. Patient is also on Cellcept for Lupus Nephritis. Patient is sometimes non-complaint with HD missing one treatment per week. Compliance reenforced. We are being consulted for management of this patient's ESRD. Past History Past Medical History: anemia, ESRD, hypertension, other (SLE, Lupus Nephritis) Past Surgical History: Other (Right IJ perm-catheter placement) Social history: single. denies: smoking, alcohol abuse, prescription drug abuse Family history: hypertension Medications and Allergies Allergies Allergy/AdvReac Type Severity Reaction Status Date / Time amoxicillin Allergy Itching Verified 12/15/17 14:42 ibuprofen [From Motrin] Allergy Itching Verified 12/15/17 14:42 Home Medications Medication Instructions Recorded Confirmed Last Taken Type Acetaminophen/Diphenhydramine 1 each PO QHS 10/25/17 10/25/17 10/24/17 History [Tylenol Pm Ex-Strength Caplet] Multivitamin Tab [Multiple Vitamin 1 each PO QDAY 10/25/17 10/25/17 10/24/17 History TAB (Theragran)] Calcitriol [Rocaltrol] 0.5 mcg PO QDAY #30 capsule 11/02/17 Unknown Rx Hydroxychloroquine [Plaquenil] 400 mg PO QDAY #60 tablet 11/02/17 Unknown Rx Methimazole [Tapazole] 5 mg PO QDAY #30 tablet 11/02/17 Unknown Rx Sevelamer Carbonate [Renvela] 1,600 mg PO AC #120 tablet 11/02/17 Unknown Rx amLODIPine [Norvasc] 10 mg PO DAILY #30 tablet 11/02/17 Unknown Rx cloNIDine [Catapres] 0.1 mg PO Q8H #90 tablet 11/02/17 Unknown Rx oxyCODONE /ACETAMINOPHEN [Percocet 1 tab PO Q6H PRN #12 tablet 11/02/17 Unknown Rx 5/325 mg] Labetalol [Normodyne TAB] 300 mg PO BID #60 tablet 11/15/17 Unknown Rx Mycophenolate [Cellcept] 1,500 mg PO BID #60 tablet 11/15/17 Unknown Rx predniSONE [Deltasone] 60 mg PO DAILY 30 Days tablet 11/15/17 Unknown Rx Active Meds: Active Medications Acetaminophen (Tylenol) 650 mg PO Q4H PRN PRN Reason: Pain MILD(1-3)/Fever >100.5/HAYNES Acetaminophen (Tylenol) 500 mg PO QHS [facility] Last Admin: 12/15/17 22:44 Dose: 500 mg Albuterol (Proventil) 2.5 mg IH Q4HRT PRN PRN Reason: Shortness Of Breath Amlodipine Besylate (Norvasc) 10 mg PO DAILY [facility] Calcitriol (Rocaltrol) 0.5 mcg PO QDAY [facility] Clonidine HCl (Catapres) 0.1 mg PO Q8H [facility] Last Admin: 12/16/17 01:42 Dose: Not Given Diphenhydramine HCl (Benadryl) 25 mg PO QHS [facility] Last Admin: 12/15/17 22:47 Dose: 25 mg Hydroxychloroquine Sulfate (Plaquenil) 400 mg PO QDAY [facility] Labetalol HCl (Normodyne) 300 mg PO BID [facility] Last Admin: 12/15/17 22:50 Dose: 300 mg Methimazole (Tapazole) 5 mg PO QDAY [facility] Multivitamins (Theragran Tab) 1 each PO QDAY [facility] Mycophenolate Mofetil (Cellcept) 1,500 mg PO BID [facility] Last Admin: 12/15/17 23:06 Dose: 1,500 mg Ondansetron HCl (Zofran) 4 mg IV Q8H PRN PRN Reason: N/V unrelieved by Reglan Oxycodone/Acetaminophen (Percocet 5/325) 1 tab PO Q6H PRN PRN Reason: Pain, Moderate (4-6) Last Admin: 12/15/17 22:45 Dose: 1 tab Prednisone (Deltasone) 60 mg PO DAILY [facility] Sevelamer Carbonate (Renvela) 1,600 mg PO AC [facility] Review of Systems Constitutional: fatigue, weakness, no fever, no chills, no sweats Ears, nose, mouth and throat: no ear pain, no ear discharge, no tinnitis, no decreased hearing, no nose pain, no nasal congestion Cardiovascular: no orthopnea, no palpitations, no rapid/irregular heart beat, no edema, no syncope, no lightheadedness Respiratory: no cough with sputum, no excessive sputum, no shortness of breath, no dyspnea on exertion Gastrointestinal: no abdominal pain, no nausea, no vomiting, no diarrhea, no constipation Exam - Vital Signs Vital signs: Vital Signs Temp Pulse Resp BP Pulse Ox 98.5 F 106 H 18 110/66 100 12/15/17 14:44 12/15/17 14:44 12/15/17 14:44 12/15/17 14:44 12/15/17 14:44 - General Appearance General appearance: well-developed, appears stated age EENT: ATNC, PERRL, hearing intact, vision intact Neck: Present: neck supple, trachea midline Respiratory: Clear to Ascultation Heart: regular, S1S2 Gastrointestinal: Present: normoactive bowel sounds Integumentary: warm and dry Neurologic: alert and oriented x3 Musculoskeletal: Present: other (No edema) Psychiatric: mood/affect appropriate Results - Lab Results 12/15/17 14:56 12/15/17 14:56 Most recent lab results Calcium 7.4 mg/dL (8.4-10.2) L 12/15/17 14:56 Assessment and Plan - Patient Problems (1) End stage kidney disease Current Visit: Yes Status: Acute Plan to address problem: Hemodialysis today for UF and clearance Fluid restriction of 32 ounces per day Obtain daily weights Monitor I/O's Renally dose medications Reenforced compliance with outpatient HD Assess dialysis needs daily (2) Pancytopenia Current Visit: Yes Status: Acute Plan to address problem: Possible secondary to Cellcept Hold Cellcept for now Received 2 units of PRBC's for HGB of 5.4 Hematology consulted (3) HTN (hypertension) Current Visit: Yes Status: Acute Qualifiers: Hypertension type: essential hypertension Qualified Code(s): I10 - Essential (primary) hypertension Plan to address problem: Blood pressures are stable (4) Lupus nephritis Current Visit: Yes Status: Acute Plan to address problem: Hold Cellcept for now due to Pancytopenia (5) Lupus Current Visit: Yes Status: Chronic Qualifiers: Lupus erythematosus form: unspecified Qualified Code(s): L93.0 - Discoid lupus erythematosus Plan to address problem: Being followed by [facility] Dr. Bear at [place] Recently seen him last week Tuesday Prednisone was decreased to 50 mg po daily by [facility] (6) Hyperthyroidism Current Visit: No Status: Acute Plan to address problem: On Tapazole
[2017-12-16] MEDS: THERAGRAN Tab PO SCH (13:32)
[2017-12-16] MEDS: DELTASONE PO SCH (13:32)
[2017-12-16] MEDS: NORVASC PO SCH (13:32)
--- NOTE | 2017-12-16 13:32 | Progress Note ---
Assessment and Plan Assessment and plan: Patient is a 31 yo man with a history of ESRD on hemodialysis, chronic anemia, chronic pain syndrome, SLE with lupus nephritis and hyperthyroidism who presented to the emergency department with low hemoglobin and fatigue. Patient states he sees at [place] for SLE and his prednisone was decreased, also he admits to missing his dialysis on occasions -Acute on chronic anemia of chronic disease: Status post 2 units of blood: repeat H&H and monitor closely -ESRD: Consult nephrology for hemodialysis -Pancytopenia: consult heme/onc -SLE: consulted heme/onc -Hyperthyroisim on tapezole: check free T4 History Interval history: Patient was seen and examined. Follow-up on current diagnosis low blood fatigue. Overnight uneventful. Patient denies any chest pain, shortness breath , nausea/vomiting or severe headaches. Imaging, nursing note, chart, labs and old chart reviewed. Discussed with patient. Hospitalist Physical - Physical exam Narrative exam: GEN: WDWN, NAD, AWAKE, ALERT, ORIENTATED 3 HEENT: NCAT, EOMI, PERRL, OP Clear NECK: supple, no adenopathy, no thyromegaly, no JVD CVS/HEART: RRR, NORMAL S1S2, NO JVD, pulses present bilaterally CHEST/LUNGS: CTA B, Symmetrical chest expansion, good air entry bilaterally, right chest wall hemodialysis catheter GI/Abdomen: soft, NTND, good bowel sounds, no guarding or rebound /Bladder: no suprapubic tenderness, no CVA or paraspinal tenderness EXT/Skin: no c/c/e, MSK: FROM x 4 Neuro: CN 2-12 grossly intact, no new focal deficits Psych: calm - Constitutional Vitals: Temp Pulse Resp BP Pulse Ox 99.5 F 96 H 18 133/80 98 12/16/17 11:21 12/16/17 11:21 12/16/17 11:21 12/16/17 11:21 12/16/17 11:21 General appearance: Absent: mild distress Results - Labs CBC & Chem 7: 12/15/17 14:56 12/15/17 14:56 Labs: Laboratory Last Values WBC 0.6 K/mm3 (4.5-11.0) L* 12/15/17 14:56 RBC 1.81 M/mm3 (3.65-5.03) L 12/15/17 14:56 Hgb 5.4 gm/dl (11.8-15.2) L* 12/15/17 14:56 Hct 16.3 % (35.5-45.6) L* 12/15/17 14:56 MCV 90 fl (84-94) 12/15/17 14:56 MCH 30 pg (28-32) 12/15/17 14:56 MCHC 34 % (32-34) 12/15/17 14:56 RDW 15.9 % (13.2-15.2) H 12/15/17 14:56 Plt Count 80 K/mm3 (140-440) L 12/15/17 14:56 Add Manual Diff Complete 12/15/17 14:56 Total Counted 50 12/15/17 14:56 Seg Neuts % (Manual) 62.0 % (40.0-70.0) 12/15/17 14:56 Band Neutrophils % 0 % 12/15/17 14:56 Lymphocytes % (Manual) 34.0 % (13.4-35.0) 12/15/17 14:56 Reactive Lymphs % (Man) 0 % 12/15/17 14:56 Monocytes % (Manual) 4.0 % (0.0-7.3) 12/15/17 14:56 Eosinophils % (Manual) 0 % (0.0-4.3) 12/15/17 14:56 Basophils % (Manual) 0 % (0.0-1.8) 12/15/17 14:56 Metamyelocytes % 0 % 12/15/17 14:56 Myelocytes % 0 % 12/15/17 14:56 Promyelocytes % 0 % 12/15/17 14:56 Blast Cells % 0 % 12/15/17 14:56 Nucleated RBC % 2.0 % (0.0-0.9) H 12/15/17 14:56 Seg Neutrophils # Man 0.4 K/mm3 (1.8-7.7) L 12/15/17 14:56 Band Neutrophils # 0.0 K/mm3 12/15/17 14:56 Lymphocytes # (Manual) 0.2 K/mm3 (1.2-5.4) L 12/15/17 14:56 Abs React Lymphs (Man) 0.0 K/mm3 12/15/17 14:56 Monocytes # (Manual) 0.0 K/mm3 (0.0-0.8) 12/15/17 14:56 Eosinophils # (Manual) 0.0 K/mm3 (0.0-0.4) 12/15/17 14:56 Basophils # (Manual) 0.0 K/mm3 (0.0-0.1) 12/15/17 14:56 Metamyelocytes # 0.0 K/mm3 12/15/17 14:56 Myelocytes # 0.0 K/mm3 12/15/17 14:56 Promyelocytes # 0.0 K/mm3 12/15/17 14:56 Blast Cells # 0.0 K/mm3 12/15/17 14:56 WBC Morphology Not Reportable 12/15/17 14:56 Hypersegmented Neuts Not Reportable 12/15/17 14:56 Hyposegmented Neuts Not Reportable 12/15/17 14:56 Hypogranular Neuts Not Reportable 12/15/17 14:56 Smudge Cells Not Reportable 12/15/17 14:56 Toxic Granulation Not Reportable 12/15/17 14:56 Toxic Vacuolation Not Reportable 12/15/17 14:56 Dohle Bodies Not Reportable 12/15/17 14:56 Pelger-Huet Anomaly Not Reportable 12/15/17 14:56 Kam Rods Not Reportable 12/15/17 14:56 Platelet Estimate Appears decreased 12/15/17 14:56 Clumped Platelets Not Reportable 12/15/17 14:56 Plt Clumps, EDTA Not Reportable 12/15/17 14:56 Large Platelets Not Reportable 12/15/17 14:56 Giant Platelets Not Reportable 12/15/17 14:56 Platelet Satelliting Not Reportable 12/15/17 14:56 Plt Morphology Comment Not Reportable 12/15/17 14:56 RBC Morphology Not Reportable 12/15/17 14:56 Dimorphic RBCs Not Reportable 12/15/17 14:56 Polychromasia Not Reportable 12/15/17 14:56 Hypochromasia Not Reportable 12/15/17 14:56 Poikilocytosis Few 12/15/17 14:56 Anisocytosis 1+ 12/15/17 14:56 Microcytosis Not Reportable 12/15/17 14:56 Macrocytosis Not Reportable 12/15/17 14:56 Spherocytes Not Reportable 12/15/17 14:56 Pappenheimer Bodies Not Reportable 12/15/17 14:56 Sickle Cells Not Reportable 12/15/17 14:56 Target Cells Not Reportable 12/15/17 14:56 Tear Drop Cells Few 12/15/17 14:56 Ovalocytes Not Reportable 12/15/17 14:56 Helmet Cells Not Reportable 12/15/17 14:56 [place] Bodies Not Reportable 12/15/17 14:56 [place] Rings Not Reportable 12/15/17 14:56 [place] Cells Not Reportable 12/15/17 14:56 Bite Cells Not Reportable 12/15/17 14:56 Crenated Cell Not Reportable 12/15/17 14:56 Elliptocytes Not Reportable 12/15/17 14:56 Acanthocytes (Spur) Not Reportable 12/15/17 14:56 Rouleaux Not Reportable 12/15/17 14:56 Hemoglobin C Crystals Not Reportable 12/15/17 14:56 Schistocytes Not Reportable 12/15/17 14:56 Malaria parasites Not Reportable 12/15/17 14:56 Nasir Bodies Not Reportable 12/15/17 14:56 Hem Pathologist Commnt No 12/15/17 14:56 PT 13.4 Sec. (12.2-14.9) 12/15/17 14:56 INR 0.97 (0.87-1.13) 12/15/17 14:56 APTT 26.6 Sec. (24.2-36.6) 12/15/17 14:56 Sodium 136 mmol/L (137-145) L 12/15/17 14:56 Potassium 3.4 mmol/L (3.6-5.0) L 12/15/17 14:56 Chloride 94.6 mmol/L (98-107) L 12/15/17 14:56 Carbon Dioxide 26 mmol/L (22-30) 12/15/17 14:56 Anion Gap 19 mmol/L 12/15/17 14:56 BUN 59 mg/dL (9-20) H 12/15/17 14:56 Creatinine 4.1 mg/dL (0.8-1.5) H 12/15/17 14:56 Estimated GFR 21 ml/min 12/15/17 14:56 BUN/Creatinine Ratio 14 % 12/15/17 14:56 Glucose 125 mg/dL (75-100) H 12/15/17 14:56 Calcium 7.4 mg/dL (8.4-10.2) L 12/15/17 14:56 Total Bilirubin < 0.20 mg/dL (0.1-1.2) 12/15/17 14:56 AST 12 units/L (5-40) 12/15/17 14:56 ALT 15 units/L (7-56) 12/15/17 14:56 Alkaline Phosphatase 45 units/L (35-129) 12/15/17 14:56 Total Protein 5.2 g/dL (6.3-8.2) L 12/15/17 14:56 Albumin 2.7 g/dL (3.9-5) L 12/15/17 14:56 Albumin/Globulin Ratio 1.1 % 12/15/17 14:56 Urine Color Yellow (Yellow) 12/15/17 20:01 Urine Turbidity Clear (Clear) 12/15/17 20:01 Urine pH 5.0 (5.0-7.0) 12/15/17 20:01 Ur Specific [place] 1.018 (1.003-1.030) 12/15/17 20:01 Urine Protein 100 mg/dl mg/dL (Negative) 12/15/17 20:01 Urine Glucose (UA) Neg mg/dL (Negative) 12/15/17 20:01 Urine Ketones Neg mg/dL (Negative) 12/15/17 20:01 Urine Blood Neg (Negative) 12/15/17 20:01 Urine Nitrite Neg (Negative) 12/15/17 20:01 Urine Bilirubin Neg (Negative) 12/15/17 20:01 Urine Urobilinogen < 2.0 mg/dL (<2.0) 12/15/17 20:01 Ur Leukocyte Esterase Neg (Negative) 12/15/17 20:01 Urine WBC (Auto) 2.0 /HPF (0.0-6.0) 12/15/17 20:01 Urine RBC (Auto) 3.0 /HPF (0.0-6.0) 12/15/17 20:01 U Epithel Cells (Auto) < 1.0 /HPF (0-13.0) 12/15/17 20:01 Urine Bacteria (Auto) 1+ /HPF (Negative) 12/15/17 20:01 Urine Mucus Few /HPF 12/15/17 20:01 Blood Type B POSITIVE 12/15/17 14:56 Antibody Screen Negative 12/15/17 14:56 Crossmatch See Detail 12/15/17 14:56
[2017-12-16] MEDS: NORMODYNE PO SCH ×2 (13:38→21:14)
[2017-12-16] MEDS ORDERED: TYLENOL PO PRN (13:38)
[2017-12-16] MEDS: PLAQUENIL PO SCH (13:39)
[2017-12-16] MEDS: CELLCEPT PO SCH (13:40)
[2017-12-16] MEDS: ROCALTROL PO SCH (14:10)
[2017-12-16] MEDS: RENVELA PO SCH ×3 (14:11→17:36)
[2017-12-16 16:04] LABS: Hematocrit 21.8 % (35.5-45.6); Hemoglobin 7.4 gm/dl (11.8-15.2); Mean Corpuscular HGB Conc 34 % (32-34); Mean Corpuscular Hemoglobin 29 pg (28-32); Mean Corpuscular Volume 86 fl (84-94); Red Blood Count 2.52 M/mm3 (3.65-5.03); Red Cell Distribution Width 15.7 % (13.2-15.2)
[2017-12-16 16:08] LABS: Platelet Count 83 K/mm3 (140-440)
[2017-12-16] MEDS: PERCOCET 5/325 PO PRN ×2 (17:34→22:55)
--- NOTE | 2017-12-16 17:55 | Hem/Onc Progress Note ---
Assessment and Plan Patient has pancytopenia which is new since his last admission last month. This seems to be related to medications. CellCept and methimazole for both stopped. Will closely monitor labs. Agree with transfusion. If white count is low, will give him Neupogen also. We will check retic count and LDH. Neutropenic precautions. Subjective Date of service: 12/16/17 Interval history: Patient is known to Dr. Chavez. Patient has history of lupus for several years. He has recently been started on hemodialysis. During his hospital stay here last month, they were few schistocytes on his blood and he was also given a course of last month he says. His [id number] was normal. He also was diagnosed with lupus nephritis and has been under [facility] care and was started on CellCept and methimazole for hyperthyroidism. Patient' s blood count was extremely low when he was seen in dialysis earlier this week and was asked to come to the hospital for treatment. Patient's hemoglobin when he came to the office was less than 6. He also had severe neutropenia and thrombo cytopenia. Objective - Constitutional Vitals: Last Vital Signs Temp 99.9 F H 12/16/17 15:19 Pulse 91 H 12/16/17 15:19 Resp 20 12/16/17 15:19 BP 115/67 12/16/17 17:24 Pulse Ox 97 12/16/17 15:19 Pain Intensity (0-10): denies any pain General appearance: no acute distress Performance status: 2- selfcare, ambulatory - Neck Neck: supple - Respiratory Respiratory effort: Positive: normal Respiratory: bilateral: CTA - Cardiovascular Rhythm: regular Extremities: No edema - Gastrointestinal General gastrointestinal: Present: soft - Labs Lab Results: Laboratory Results - last 24 hr 12/15/17 12/15/17 12/16/17 14:56 20:01 15:32 WBC RBC Hgb Hct MCV MCH MCHC RDW Plt Count Free T4 0.89 Urine Color Yellow Urine Turbidity Clear Urine pH 5.0 Ur Specific [place] 1.018 Urine Protein 100 mg/dl Urine Glucose (UA) Neg Urine Ketones Neg Urine Blood Neg Urine Nitrite Neg Urine Bilirubin Neg Urine Urobilinogen < 2.0 Ur Leukocyte Esterase Neg Urine WBC (Auto) 2.0 Urine RBC (Auto) 3.0 U Epithel Cells (Auto) < 1.0 Urine Bacteria (Auto) 1+ Urine Mucus Few Blood Type B POSITIVE Antibody Screen Negative Crossmatch See Detail 12/16/17 15:52 WBC 0.5 L* RBC 2.52 L Hgb 7.4 L Hct 21.8 L MCV 86 MCH 29 MCHC 34 RDW 15.7 H Plt Count 83 L Free T4 Urine Color Urine Turbidity Urine pH Ur Specific [place] Urine Protein Urine Glucose (UA) Urine Ketones Urine Blood Urine Nitrite Urine Bilirubin Urine Urobilinogen Ur Leukocyte Esterase Urine WBC (Auto) Urine RBC (Auto) U Epithel Cells (Auto) Urine Bacteria (Auto) Urine Mucus Blood Type Antibody Screen Crossmatch
[2017-12-16] MEDS: TYLENOL PO SCH (21:12)
[2017-12-16] MEDS: BENADRYL PO SCH (21:13)
[2017-12-17 07:00] LABS: Hematocrit 21.6 % (35.5-45.6); Hemoglobin 7.4 gm/dl (11.8-15.2); Mean Corpuscular HGB Conc 34 % (32-34); Mean Corpuscular Hemoglobin 30 pg (28-32); Mean Corpuscular Volume 87 fl (84-94); Platelet Count 102 K/mm3 (140-440); Red Blood Count 2.48 M/mm3 (3.65-5.03); Red Cell Distribution Width 15.5 % (13.2-15.2)
[2017-12-17 07:23] LABS: Albumin 2.5 g/dL (3.9-5); Calcium 7.5 mg/dL (8.4-10.2)
[2017-12-17] MEDS: RENVELA PO SCH ×4 (09:22→19:16)
[2017-12-17] MEDS: DELTASONE PO SCH (09:26)
[2017-12-17] MEDS: THERAGRAN Tab PO SCH (09:26)
[2017-12-17] MEDS: PERCOCET 5/325 PO PRN ×3 (09:27→21:12)
[2017-12-17] MEDS: PLAQUENIL PO SCH (09:27)
--- NOTE | 2017-12-17 11:49 | Hem/Onc Progress Note ---
Assessment and Plan givens cytopenia secondary to medication. Agents white count is still very low. We will start Neupogen. Monitor counts. Discussed with patient. Continue to hold CellCept and methimazole. Subjective Date of service: 12/17/17 Interval history: Patient feels fair. Denies any fevers. Denies any cough. Denies any diarrhea. Objective - Constitutional Vitals: Last Vital Signs Temp 99.1 F 12/17/17 07:55 Pulse 81 12/17/17 07:55 Resp 18 12/17/17 07:55 BP 111/59 12/17/17 07:55 Pulse Ox 98 12/17/17 10:00 General appearance: no acute distress Performance status: 2- selfcare, ambulatory - Neck Neck: supple - Respiratory Respiratory effort: Positive: normal Respiratory: bilateral: CTA - Cardiovascular Rhythm: regular Extremities: No edema - Gastrointestinal General gastrointestinal: Present: soft - Labs Lab Results: Laboratory Results - last 24 hr 12/16/17 12/16/17 12/17/17 15:32 15:52 06:06 WBC 0.5 L* RBC 2.52 L Hgb 7.4 L Hct 21.8 L MCV 86 MCH 29 MCHC 34 RDW 15.7 H Plt Count 83 L [place] % (Auto) Seg Neutrophils % Percent Retic Sodium 137 Potassium 4.8 D Chloride 95.5 L Carbon Dioxide 24 Anion Gap 22 BUN 79 H Creatinine 4.9 H Estimated GFR 17 BUN/Creatinine Ratio 16 Glucose 133 H Calcium 7.5 L Phosphorus 5.10 H Iron 73 TIBC 118 L Total Bilirubin 0.20 AST 10 ALT 13 Alkaline Phosphatase 42 Lactate Dehydrogenase Total Protein 5.1 L Albumin 2.5 L Albumin/Globulin Ratio 1.0 Free T4 0.89 12/17/17 12/17/17 06:06 06:06 WBC 0.4 L* RBC 2.48 L Hgb 7.4 L Hct 21.6 L MCV 87 MCH 30 MCHC 34 RDW 15.5 H Plt Count 102 L [place] % (Auto) Pin Inserter Seg Neutrophils % Pin Inserter Percent Retic 0.85 Sodium Potassium Chloride Carbon Dioxide Anion Gap BUN Creatinine Estimated GFR BUN/Creatinine Ratio Glucose Calcium Phosphorus Iron TIBC Total Bilirubin AST ALT Alkaline Phosphatase Lactate Dehydrogenase 201 H Total Protein Albumin Albumin/Globulin Ratio Free T4
[2017-12-17] MEDS ORDERED: NACL 0.9% 100 ML IV PRN (12:20)
[2017-12-17 12:33] LABS: Basophils % (Manual) 0 % (0.0-1.8); Eosinophils % (Manual) 0 % (0.0-4.3); Monocytes % (Manual) 0 % (0.0-7.3); Total Cells Counted 10
[2017-12-17 12:35] LABS: Anisocytosis 1+; Platelet Estimate Consistent w Auto; Tear Drop Cells 1+
[2017-12-17] MEDS: CATAPRES PO SCH ×2 (12:54→12:55)
[2017-12-17] MEDS: NORMODYNE PO SCH ×2 (12:55→21:23)
[2017-12-17] MEDS: NORVASC PO SCH (12:55)
--- NOTE | 2017-12-17 14:17 | Progress Note ---
Assessment and Plan (1) End stage kidney disease Current Visit: Yes Status: Acute Plan to address problem: Did not get HD yesterday. Hemodialysis today for UF and clearance. Will plan to do MWF HD while inpatient but will eval daily. Pt is on MWF HD outpatient via [facility]. Fluid restriction of 32 ounces per day Obtain daily weights Monitor I/O's Renally dose medications Reenforced compliance with outpatient HD Assess dialysis needs daily (2) Pancytopenia with anemia of chronic disease due to ESRD: Current Visit: Yes Status: Acute Plan to address problem: Possible secondary to Cellcept Hold Cellcept for now Transfuse PRN per primary Hematology consulted Start epogen (3) HTN (hypertension) Current Visit: Yes Status: Acute Qualifiers: Hypertension type: essential hypertension Qualified Code(s): I10 - Essential (primary) hypertension Plan to address problem: Titrate BP to keep SBP <130 (4) Lupus nephritis Current Visit: Yes Status: Acute Plan to address problem: Hold Cellcept for now due to Pancytopenia (5) Lupus Current Visit: Yes Status: Chronic Qualifiers: Lupus erythematosus form: unspecified Qualified Code(s): L93.0 - Discoid lupus erythematosus Plan to address problem: Being followed by [facility] Dr. Bear at [place] Recently seen him last week Tuesday Prednisone was decreased to 50 mg po daily by [facility] (6) Hyperthyroidism Current Visit: No Status: Acute Plan to address problem: On Tapazole Plan d/w bedside RN. Juan Angulo MD Nephrology [phone] Subjective Date of service: 12/17/17 Interval history: Plan for HD today. Denies CP, SHOB. Did not get HD yesterday. Objective - Exam Narrative Exam: GE:AAOX3 HEENT: Normocephalic Neck: No JVD CVS: RRR Chest: CTAB, Rt IJ TDC Abd: Soft/BS+ Ext: No cce Neuro: AAOX3 - Vital Signs Vital signs: Vital Signs - 12hr 12/17/17 12/17/17 07:55 10:00 Temperature 99.1 F Pulse Rate 81 Respiratory 18 Rate Blood Pressure 111/59 O2 Sat by Pulse 97 98 Oximetry - Lab 12/17/17 06:06 12/17/17 06:06 Most recent lab results Calcium 7.5 mg/dL (8.4-10.2) L 12/17/17 06:06 Phosphorus 5.10 mg/dL (2.5-4.5) H 12/17/17 06:06
[2017-12-17] MEDS: ROCALTROL PO SCH (14:56)
[2017-12-17] MEDS: GRANIX SUB-Q SCH (14:56)
--- NOTE | 2017-12-17 15:14 | Progress Note ---
Assessment and Plan Assessment and plan: Patient is a 31 yo man with a history of ESRD on hemodialysis, chronic anemia, chronic pain syndrome, SLE with lupus nephritis and hyperthyroidism who presented to the emergency department with low hemoglobin and fatigue. Patient states he sees at [place] for SLE and his prednisone was decreased, also he admits to missing his dialysis on occasions -Acute on chronic anemia of chronic disease: Status post 2 units of blood: repeat H&H and monitor closely -ESRD: Consult nephrology for hemodialysis -Pancytopenia: consult heme/onc -SLE: consulted heme/onc -Hyperthyroisim on tapezole: check free T4 per hem/onc, Dr. Moy: "givens cytopenia secondary to medication. Agents white count is still very low. We will start Neupogen. Monitor counts. Discussed with patient. Continue to hold CellCept and methimazole." History Interval history: Patient was seen and examined. Follow-up on current diagnosis of fatigue which has improved. Overnight uneventful. Patient denies any chest pain, shortness breath, nausea/vomiting or severe headaches. Imaging, nursing note, chart, labs and old chart reviewed. Discussed with patient. Hospitalist Physical - Physical exam Narrative exam: GEN: WDWN, NAD, AWAKE, ALERT, ORIENTATED 3 HEENT: NCAT, EOMI, PERRL, OP Clear NECK: supple, no adenopathy, no thyromegaly, no JVD CVS/HEART: RRR, NORMAL S1S2, NO JVD, pulses present bilaterally CHEST/LUNGS: CTA B, Symmetrical chest expansion, good air entry bilaterally, right chest wall hemodialysis catheter GI/Abdomen: soft, NTND, good bowel sounds, no guarding or rebound /Bladder: no suprapubic tenderness, no CVA or paraspinal tenderness EXT/Skin: no c/c/e, MSK: FROM x 4 Neuro: CN 2-12 grossly intact, no new focal deficits Psych: calm - Constitutional Vitals: Temp Pulse Resp BP Pulse Ox 99.1 F 81 18 111/59 98 12/17/17 07:55 12/17/17 07:55 12/17/17 07:55 12/17/17 07:55 12/17/17 10:00 General appearance: Absent: mild distress Results - Labs CBC & Chem 7: 12/17/17 06:06 12/17/17 06:06 Labs: Laboratory Last Values WBC 0.4 K/mm3 (4.5-11.0) L* 12/17/17 06:06 RBC 2.48 M/mm3 (3.65-5.03) L 12/17/17 06:06 Hgb 7.4 gm/dl (11.8-15.2) L 12/17/17 06:06 Hct 21.6 % (35.5-45.6) L 12/17/17 06:06 MCV 87 fl (84-94) 12/17/17 06:06 MCH 30 pg (28-32) 12/17/17 06:06 MCHC 34 % (32-34) 12/17/17 06:06 RDW 15.5 % (13.2-15.2) H 12/17/17 06:06 Plt Count 102 K/mm3 (140-440) L 12/17/17 06:06 [place] % (Auto) [place] 12/17/17 06:06 Add Manual Diff Complete 12/17/17 06:06 Total Counted 10 12/17/17 06:06 Seg Neutrophils % [place] 12/17/17 06:06 Seg Neuts % (Manual) 40.0 % (40.0-70.0) 12/17/17 06:06 Band Neutrophils % 0 % 12/17/17 06:06 Lymphocytes % (Manual) 60.0 % (13.4-35.0) H 12/17/17 06:06 Reactive Lymphs % (Man) 0 % 12/17/17 06:06 Monocytes % (Manual) 0 % (0.0-7.3) 12/17/17 06:06 Eosinophils % (Manual) 0 % (0.0-4.3) 12/17/17 06:06 Basophils % (Manual) 0 % (0.0-1.8) 12/17/17 06:06 Metamyelocytes % 0 % 12/17/17 06:06 Myelocytes % 0 % 12/17/17 06:06 Promyelocytes % 0 % 12/17/17 06:06 Blast Cells % 0 % 12/17/17 06:06 Nucleated RBC % Not Reportable 12/17/17 06:06 Seg Neutrophils # Man 0.2 K/mm3 (1.8-7.7) L 12/17/17 06:06 Band Neutrophils # 0.0 K/mm3 12/17/17 06:06 Lymphocytes # (Manual) 0.2 K/mm3 (1.2-5.4) L 12/17/17 06:06 Abs React Lymphs (Man) 0.0 K/mm3 12/17/17 06:06 Monocytes # (Manual) 0.0 K/mm3 (0.0-0.8) 12/17/17 06:06 Eosinophils # (Manual) 0.0 K/mm3 (0.0-0.4) 12/17/17 06:06 Basophils # (Manual) 0.0 K/mm3 (0.0-0.1) 12/17/17 06:06 Metamyelocytes # 0.0 K/mm3 12/17/17 06:06 Myelocytes # 0.0 K/mm3 12/17/17 06:06 Promyelocytes # 0.0 K/mm3 12/17/17 06:06 Blast Cells # 0.0 K/mm3 12/17/17 06:06 WBC Morphology Not Reportable 12/17/17 06:06 Hypersegmented Neuts Not Reportable 12/17/17 06:06 Hyposegmented Neuts Not Reportable 12/17/17 06:06 Hypogranular Neuts Not Reportable 12/17/17 06:06 Smudge Cells Not Reportable 12/17/17 06:06 Toxic Granulation Not Reportable 12/17/17 06:06 Toxic Vacuolation Not Reportable 12/17/17 06:06 Dohle Bodies Not Reportable 12/17/17 06:06 Pelger-Huet Anomaly Not Reportable 12/17/17 06:06 Kam Rods Not Reportable 12/17/17 06:06 Platelet Estimate Consistent w auto 12/17/17 06:06 Clumped Platelets Not Reportable 12/17/17 06:06 Plt Clumps, EDTA Not Reportable 12/17/17 06:06 Large Platelets Not Reportable 12/17/17 06:06 Giant Platelets Not Reportable 12/17/17 06:06 Platelet Satelliting Not Reportable 12/17/17 06:06 Plt Morphology Comment Not Reportable 12/17/17 06:06 RBC Morphology Not Reportable 12/17/17 06:06 Dimorphic RBCs Not Reportable 12/17/17 06:06 Polychromasia Not Reportable 12/17/17 06:06 Hypochromasia Not Reportable 12/17/17 06:06 Poikilocytosis Not Reportable 12/17/17 06:06 Anisocytosis 1+ 12/17/17 06:06 Microcytosis Not Reportable 12/17/17 06:06 Macrocytosis Not Reportable 12/17/17 06:06 Spherocytes Not Reportable 12/17/17 06:06 Pappenheimer Bodies Not Reportable 12/17/17 06:06 Sickle Cells Not Reportable 12/17/17 06:06 Target Cells Not Reportable 12/17/17 06:06 Tear Drop Cells 1+ 12/17/17 06:06 Ovalocytes Not Reportable 12/17/17 06:06 Helmet Cells Not Reportable 12/17/17 06:06 [place] Bodies Not Reportable 12/17/17 06:06 [place] Rings Not Reportable 12/17/17 06:06 [place] Cells Not Reportable 12/17/17 06:06 Bite Cells Not Reportable 12/17/17 06:06 Crenated Cell Not Reportable 12/17/17 06:06 Elliptocytes 1+ 12/17/17 06:06 Acanthocytes (Spur) Not Reportable 12/17/17 06:06 Rouleaux Not Reportable 12/17/17 06:06 Hemoglobin C Crystals Not Reportable 12/17/17 06:06 Schistocytes Not Reportable 12/17/17 06:06 Malaria parasites Not Reportable 12/17/17 06:06 Percent Retic 0.85 % (0.78-2.58) 12/17/17 06:06 Nasir Bodies Not Reportable 12/17/17 06:06 Hem Pathologist Commnt No 12/17/17 06:06 PT 13.4 Sec. (12.2-14.9) 12/15/17 14:56 INR 0.97 (0.87-1.13) 12/15/17 14:56 APTT 26.6 Sec. (24.2-36.6) 12/15/17 14:56 Sodium 137 mmol/L (137-145) 12/17/17 06:06 Potassium 4.8 mmol/L (3.6-5.0) D 12/17/17 06:06 Chloride 95.5 mmol/L (98-107) L 12/17/17 06:06 Carbon Dioxide 24 mmol/L (22-30) 12/17/17 06:06 Anion Gap 22 mmol/L 12/17/17 06:06 BUN 79 mg/dL (9-20) H 12/17/17 06:06 Creatinine 4.9 mg/dL (0.8-1.5) H 12/17/17 06:06 Estimated GFR 17 ml/min 12/17/17 06:06 BUN/Creatinine Ratio 16 % 12/17/17 06:06 Glucose 133 mg/dL (75-100) H 12/17/17 06:06 Calcium 7.5 mg/dL (8.4-10.2) L 12/17/17 06:06 Phosphorus 5.10 mg/dL (2.5-4.5) H 12/17/17 06:06 Iron 73 ug/dL (49-181) 12/17/17 06:06 TIBC 118 mcg/dL (250-450) L 12/17/17 06:06 Total Bilirubin 0.20 mg/dL (0.1-1.2) 12/17/17 06:06 AST 10 units/L (5-40) 12/17/17 06:06 ALT 13 units/L (7-56) 12/17/17 06:06 Alkaline Phosphatase 42 units/L (35-129) 12/17/17 06:06 Lactate Dehydrogenase 201 units/L (91-180) H 12/17/17 06:06 Total Protein 5.1 g/dL (6.3-8.2) L 12/17/17 06:06 Albumin 2.5 g/dL (3.9-5) L 12/17/17 06:06 Albumin/Globulin Ratio 1.0 % 12/17/17 06:06 Free T4 0.89 ng/dL (0.76-1.46) 12/16/17 15:32 Urine Color Yellow (Yellow) 12/15/17 20:01 Urine Turbidity Clear (Clear) 12/15/17 20:01 Urine pH 5.0 (5.0-7.0) 12/15/17 20:01 Ur Specific [place] 1.018 (1.003-1.030) 12/15/17 20:01 Urine Protein 100 mg/dl mg/dL (Negative) 12/15/17 20:01 Urine Glucose (UA) Neg mg/dL (Negative) 12/15/17 20:01 Urine Ketones Neg mg/dL (Negative) 12/15/17 20:01 Urine Blood Neg (Negative) 12/15/17 20:01 Urine Nitrite Neg (Negative) 12/15/17 20:01 Urine Bilirubin Neg (Negative) 12/15/17 20:01 Urine Urobilinogen < 2.0 mg/dL (<2.0) 12/15/17 20:01 Ur Leukocyte Esterase Neg (Negative) 12/15/17 20:01 Urine WBC (Auto) 2.0 /HPF (0.0-6.0) 12/15/17 20:01 Urine RBC (Auto) 3.0 /HPF (0.0-6.0) 12/15/17 20:01 U Epithel Cells (Auto) < 1.0 /HPF (0-13.0) 12/15/17 20:01 Urine Bacteria (Auto) 1+ /HPF (Negative) 12/15/17 20:01 Urine Mucus Few /HPF 12/15/17 20:01 Blood Type B POSITIVE 12/15/17 14:56 Antibody Screen Negative 12/15/17 14:56 Crossmatch See Detail 12/15/17 14:56
[2017-12-17] MEDS ORDERED: PROCRIT SUB-Q SCH (17:00)
[2017-12-17] MEDS: TYLENOL PO SCH (21:13)
[2017-12-17] MEDS: BENADRYL PO SCH (21:13)
[2017-12-17] MEDS ORDERED: NACL 0.9% 1000 ML 2,000 ML ONE (21:48)
[2017-12-18] MEDS: PERCOCET 5/325 PO PRN ×3 (08:09→20:39)
[2017-12-18] MEDS: RENVELA PO SCH ×3 (09:48→16:51)
[2017-12-18] MEDS: THERAGRAN Tab PO SCH (09:49)
[2017-12-18] MEDS: DELTASONE PO SCH (09:49)
[2017-12-18] MEDS: PLAQUENIL PO SCH (09:50)
[2017-12-18] MEDS: NORVASC PO SCH (09:50)
[2017-12-18] MEDS ORDERED: VANCOMYCIN PHARMACY TO DOSE IV SCH (10:00)
[2017-12-18] MEDS ORDERED: LEVAQUIN 500MG/100ML 500 MG/100 ML BAG IV ONE (10:15)
[2017-12-18] MEDS: GRANIX SUB-Q SCH (11:02)
[2017-12-18] MEDS: ROCALTROL PO SCH (11:03)
[2017-12-18] MEDS ORDERED: NACL 0.9% 100 ML IV PRN (12:30)
[2017-12-18 13:12] LABS: Hemoglobin 6.6 gm/dl (11.8-15.2); Mean Corpuscular HGB Conc 34 % (32-34); Mean Corpuscular Hemoglobin 30 pg (28-32); Mean Corpuscular Volume 86 fl (84-94); Red Blood Count 2.23 M/mm3 (3.65-5.03); Red Cell Distribution Width 15.2 % (13.2-15.2)
[2017-12-18 13:16] LABS: Hematocrit 19.2 % (35.5-45.6); Platelet Count 87 K/mm3 (140-440)
[2017-12-18] MEDS: MAXIPIME/NS 1 GM/100 ML 1 GM/100 ML BAG IV SCH ×2 (13:31→23:49)
[2017-12-18] MEDS: FLAGYL PO SCH ×2 (13:31→23:50)
[2017-12-18] MEDS ORDERED: NACL 0.9% 500 ML 500 ML IV SCH (13:58)
--- NOTE | 2017-12-18 14:00 | Hem/Onc Progress Note ---
Assessment and Plan givens cytopenia secondary to medication. Agents white count is still very low. Continue Neupogen. Monitor counts. Discussed with patient. Continue to hold CellCept and methimazole. We will give 1 unit of packed RBC Subjective Date of service: 12/18/17 Interval history: Patient feels fair. Denies any fevers. Denies any cough. Denies any diarrhea. Objective - Constitutional Vitals: Last Vital Signs Temp 102.8 F H 12/18/17 07:58 Pulse 116 H 12/18/17 07:58 Resp 16 12/18/17 07:58 BP 134/79 12/18/17 07:58 Pulse Ox 94 12/18/17 07:58 Pain Intensity (0-10): denies any pain Performance status: 2- selfcare, ambulatory - Neck Neck: supple - Respiratory Respiratory effort: Positive: normal Respiratory: bilateral: CTA - Cardiovascular Rhythm: regular - Gastrointestinal General gastrointestinal: Present: soft - Labs Lab Results: Laboratory Results - last 24 hr 12/15/17 12/18/17 14:56 13:09 WBC 0.6 L* RBC 2.23 L Hgb 6.6 L Hct 19.2 L* MCV 86 MCH 30 MCHC 34 RDW 15.2 Plt Count 87 L [place] % (Auto) Car Coupler Crossmatch See Detail
[2017-12-18] MEDS: VANCOMYCIN 1,250 MG in NACL 0.9% 250ML 250 ML IV ONE ×2 (14:02→14:09)
[2017-12-18 14:26] LABS: Basophils % (Manual) 0 % (0.0-1.8); Eosinophils % (Manual) 0 % (0.0-4.3); Total Cells Counted 25
[2017-12-18 14:27] LABS: Anisocytosis Few
--- NOTE | 2017-12-18 14:48 | Progress Note ---
Assessment and Plan (1) End stage kidney disease Current Visit: Yes Status: Acute Plan to address problem: s/p HD yesterday, no HD today, HD tomorrow. Will plan to do MWF HD while inpatient but will eval daily. Pt is on MWF HD outpatient via [facility]. Fluid restriction of 32 ounces per day Obtain daily weights Monitor I/O's Renally dose medications Reenforced compliance with outpatient HD Assess dialysis needs daily (2) Pancytopenia with anemia of chronic disease due to ESRD: Current Visit: Yes Status: Acute Plan to address problem: Possible secondary to Cellcept Hold Cellcept for now Transfuse PRN per primary Hematology consulted, on neuopogen. Started epogen (3) HTN (hypertension) Current Visit: Yes Status: Acute Qualifiers: Hypertension type: essential hypertension Qualified Code(s): I10 - Essential (primary) hypertension Plan to address problem: Titrate BP to keep SBP <130 (4) Lupus nephritis Current Visit: Yes Status: Acute Plan to address problem: Hold Cellcept for now due to Pancytopenia (5) Lupus Current Visit: Yes Status: Chronic Qualifiers: Lupus erythematosus form: unspecified Qualified Code(s): L93.0 - Discoid lupus erythematosus Plan to address problem: Being followed by [facility] Dr. Bear at [place] Recently seen by him outpatient. Prednisone was decreased to 50 mg po daily by [employer]ler (6) Hyperthyroidism Current Visit: No Status: Acute Plan to address problem: On Tapazole Juan Angulo MD Nephrology [phone] Subjective Date of service: 12/18/17 Interval history: Tolerated HD yesterday, Denies CP, SHOB. Objective - Exam Narrative Exam: GE:AAOX3 HEENT: Normocephalic Neck: No JVD CVS: RRR Chest: CTAB, Rt IJ TDC Abd: Soft/BS+ Ext: No cce Neuro: AAOX3 - Vital Signs Vital signs: Vital Signs - 12hr 12/18/17 12/18/17 07:58 12:03 Temperature 102.8 F H 99.7 F H Pulse Rate 116 H 96 H Respiratory 16 20 Rate Blood Pressure 134/79 121/67 O2 Sat by Pulse 94 95 Oximetry - Lab 12/18/17 13:09 12/17/17 06:06 Most recent lab results Calcium 7.5 mg/dL (8.4-10.2) L 12/17/17 06:06 Phosphorus 5.10 mg/dL (2.5-4.5) H 12/17/17 06:06
--- NOTE | 2017-12-18 14:53 | Progress Note ---
Assessment and Plan Assessment and plan: Patient is a 31 yo man with a history of ESRD on hemodialysis, chronic anemia, chronic pain syndrome, SLE with lupus nephritis and hyperthyroidism who presented to the emergency department with low hemoglobin and fatigue. Patient states he sees at [place] for SLE and his prednisone was decreased, also he admits to missing his dialysis on occasions -Acute on chronic anemia of chronic disease: Status post 2 units of blood: repeat H&H and monitor closely -ESRD: Consult nephrology for hemodialysis -Pancytopenia: consult heme/onc -SLE: consulted heme/onc -Hyperthyroisim on tapezole: check free T4 per hem/onc, Dr. Moy: "givens cytopenia secondary to medication. Agents white count is still very low. We will start Neupogen. Monitor counts. Discussed with patient. Continue to hold CellCept and methimazole." 12/18/17: febrile now, consulted ID, started iv vancomycin and levaquin/flagyl ( allergic to pcn with hives and lip swelling, no hold off on cefepime, await ID consult) History Interval history: Patient was seen and examined. Follow-up on current diagnosis of fatigue which has improved. Overnight febrile. Patient denies any chest pain, shortness breath, nausea/vomiting or severe headaches. Imaging, nursing note, chart, labs and old chart reviewed. Discussed with patient. Hospitalist Physical - Physical exam Narrative exam: GEN: WDWN, NAD, AWAKE, ALERT, ORIENTATED 3 HEENT: NCAT, EOMI, PERRL, OP Clear NECK: supple, no adenopathy, no thyromegaly, no JVD CVS/HEART: RRR, NORMAL S1S2, NO JVD, pulses present bilaterally CHEST/LUNGS: CTA B, Symmetrical chest expansion, good air entry bilaterally, right chest wall hemodialysis catheter GI/Abdomen: soft, NTND, good bowel sounds, no guarding or rebound /Bladder: no suprapubic tenderness, no CVA or paraspinal tenderness EXT/Skin: no c/c/e, MSK: FROM x 4 Neuro: CN 2-12 grossly intact, no new focal deficits Psych: calm - Constitutional Vitals: Temp Pulse Resp BP Pulse Ox 99.7 F H 96 H 20 121/67 95 12/18/17 12:03 12/18/17 12:03 12/18/17 12:03 12/18/17 12:03 12/18/17 12:03 General appearance: Absent: mild distress Results - Labs CBC & Chem 7: 12/18/17 13:09 12/17/17 06:06 Labs: Laboratory Last Values WBC 0.6 K/mm3 (4.5-11.0) L* 12/18/17 13:09 RBC 2.23 M/mm3 (3.65-5.03) L 12/18/17 13:09 Hgb 6.6 gm/dl (11.8-15.2) L 12/18/17 13:09 Hct 19.2 % (35.5-45.6) L* 12/18/17 13:09 MCV 86 fl (84-94) 12/18/17 13:09 MCH 30 pg (28-32) 12/18/17 13:09 MCHC 34 % (32-34) 12/18/17 13:09 RDW 15.2 % (13.2-15.2) 12/18/17 13:09 Plt Count 87 K/mm3 (140-440) L 12/18/17 13:09 [place] % (Auto) Paradichlorobenzene Machine Operator 12/18/17 13:09 Add Manual Diff Complete 12/18/17 13:09 Total Counted 25 12/18/17 13:09 Seg Neutrophils % Paradichlorobenzene Machine Operator 12/17/17 06:06 Seg Neuts % (Manual) 40.0 % (40.0-70.0) 12/18/17 13:09 Band Neutrophils % 8.0 % 12/18/17 13:09 Lymphocytes % (Manual) 24.0 % (13.4-35.0) 12/18/17 13:09 Reactive Lymphs % (Man) 0 % 12/18/17 13:09 Monocytes % (Manual) 28.0 % (0.0-7.3) H 12/18/17 13:09 Eosinophils % (Manual) 0 % (0.0-4.3) 12/18/17 13:09 Basophils % (Manual) 0 % (0.0-1.8) 12/18/17 13:09 Metamyelocytes % 0 % 12/18/17 13:09 Myelocytes % 0 % 12/18/17 13:09 Promyelocytes % 0 % 12/18/17 13:09 Blast Cells % 0 % 12/18/17 13:09 Nucleated RBC % Not Reportable 12/18/17 13:09 Seg Neutrophils # Man 0.2 K/mm3 (1.8-7.7) L 12/18/17 13:09 Band Neutrophils # 0.0 K/mm3 12/18/17 13:09 Lymphocytes # (Manual) 0.1 K/mm3 (1.2-5.4) L 12/18/17 13:09 Abs React Lymphs (Man) 0.0 K/mm3 12/18/17 13:09 Monocytes # (Manual) 0.2 K/mm3 (0.0-0.8) 12/18/17 13:09 Eosinophils # (Manual) 0.0 K/mm3 (0.0-0.4) 12/18/17 13:09 Basophils # (Manual) 0.0 K/mm3 (0.0-0.1) 12/18/17 13:09 Metamyelocytes # 0.0 K/mm3 12/18/17 13:09 Myelocytes # 0.0 K/mm3 12/18/17 13:09 Promyelocytes # 0.0 K/mm3 12/18/17 13:09 Blast Cells # 0.0 K/mm3 12/18/17 13:09 WBC Morphology Not Reportable 12/18/17 13:09 Hypersegmented Neuts Not Reportable 12/18/17 13:09 Hyposegmented Neuts Not Reportable 12/18/17 13:09 Hypogranular Neuts Not Reportable 12/18/17 13:09 Smudge Cells Not Reportable 12/18/17 13:09 Toxic Granulation Not Reportable 12/18/17 13:09 Toxic Vacuolation Not Reportable 12/18/17 13:09 Dohle Bodies Not Reportable 12/18/17 13:09 Pelger-Huet Anomaly Not Reportable 12/18/17 13:09 Kam Rods Not Reportable 12/18/17 13:09 Platelet Estimate Not Reportable 12/18/17 13:09 Clumped Platelets Not Reportable 12/18/17 13:09 Plt Clumps, EDTA Not Reportable 12/18/17 13:09 Large Platelets Not Reportable 12/18/17 13:09 Giant Platelets Not Reportable 12/18/17 13:09 Platelet Satelliting Not Reportable 12/18/17 13:09 Plt Morphology Comment Not Reportable 12/18/17 13:09 RBC Morphology Not Reportable 12/18/17 13:09 Dimorphic RBCs Not Reportable 12/18/17 13:09 Polychromasia Not Reportable 12/18/17 13:09 Hypochromasia Not Reportable 12/18/17 13:09 Poikilocytosis Not Reportable 12/18/17 13:09 Anisocytosis Few 12/18/17 13:09 Microcytosis Not Reportable 12/18/17 13:09 Macrocytosis Not Reportable 12/18/17 13:09 Spherocytes Not Reportable 12/18/17 13:09 Pappenheimer Bodies Not Reportable 12/18/17 13:09 Sickle Cells Not Reportable 12/18/17 13:09 Target Cells Not Reportable 12/18/17 13:09 Tear Drop Cells Not Reportable 12/18/17 13:09 Ovalocytes Not Reportable 12/18/17 13:09 Helmet Cells Not Reportable 12/18/17 13:09 [place] Bodies Not Reportable 12/18/17 13:09 [place] Rings Not Reportable 12/18/17 13:09 [place] Cells Not Reportable 12/18/17 13:09 Bite Cells Not Reportable 12/18/17 13:09 Crenated Cell Not Reportable 12/18/17 13:09 Elliptocytes Not Reportable 12/18/17 13:09 Acanthocytes (Spur) Not Reportable 12/18/17 13:09 Rouleaux Not Reportable 12/18/17 13:09 Hemoglobin C Crystals Not Reportable 12/18/17 13:09 Schistocytes Not Reportable 12/18/17 13:09 Malaria parasites Not Reportable 12/18/17 13:09 Percent Retic 0.85 % (0.78-2.58) 12/17/17 06:06 Nasir Bodies Not Reportable 12/18/17 13:09 Hem Pathologist Commnt No 12/18/17 13:09 PT 13.4 Sec. (12.2-14.9) 12/15/17 14:56 INR 0.97 (0.87-1.13) 12/15/17 14:56 APTT 26.6 Sec. (24.2-36.6) 12/15/17 14:56 Sodium 137 mmol/L (137-145) 12/17/17 06:06 Potassium 4.8 mmol/L (3.6-5.0) D 12/17/17 06:06 Chloride 95.5 mmol/L (98-107) L 12/17/17 06:06 Carbon Dioxide 24 mmol/L (22-30) 12/17/17 06:06 Anion Gap 22 mmol/L 12/17/17 06:06 BUN 79 mg/dL (9-20) H 12/17/17 06:06 Creatinine 4.9 mg/dL (0.8-1.5) H 12/17/17 06:06 Estimated GFR 17 ml/min 12/17/17 06:06 BUN/Creatinine Ratio 16 % 12/17/17 06:06 Glucose 133 mg/dL (75-100) H 12/17/17 06:06 Calcium 7.5 mg/dL (8.4-10.2) L 12/17/17 06:06 Phosphorus 5.10 mg/dL (2.5-4.5) H 12/17/17 06:06 Iron 73 ug/dL (49-181) 12/17/17 06:06 TIBC 118 mcg/dL (250-450) L 12/17/17 06:06 Total Bilirubin 0.20 mg/dL (0.1-1.2) 12/17/17 06:06 AST 10 units/L (5-40) 12/17/17 06:06 ALT 13 units/L (7-56) 12/17/17 06:06 Alkaline Phosphatase 42 units/L (35-129) 12/17/17 06:06 Lactate Dehydrogenase 201 units/L (91-180) H 12/17/17 06:06 Total Protein 5.1 g/dL (6.3-8.2) L 12/17/17 06:06 Albumin 2.5 g/dL (3.9-5) L 12/17/17 06:06 Albumin/Globulin Ratio 1.0 % 12/17/17 06:06 Free T4 0.89 ng/dL (0.76-1.46) 12/16/17 15:32 Urine Color Yellow (Yellow) 12/15/17 20:01 Urine Turbidity Clear (Clear) 12/15/17 20:01 Urine pH 5.0 (5.0-7.0) 12/15/17 20:01 Ur Specific Maribel 1.018 (1.003-1.030) 12/15/17 20:01 Urine Protein 100 mg/dl mg/dL (Negative) 12/15/17 20:01 Urine Glucose (UA) Neg mg/dL (Negative) 12/15/17 20:01 Urine Ketones Neg mg/dL (Negative) 12/15/17 20:01 Urine Blood Neg (Negative) 12/15/17 20:01 Urine Nitrite Neg (Negative) 12/15/17 20:01 Urine Bilirubin Neg (Negative) 12/15/17 20:01 Urine Urobilinogen < 2.0 mg/dL (<2.0) 12/15/17 20:01 Ur Leukocyte Esterase Neg (Negative) 12/15/17 20:01 Urine WBC (Auto) 2.0 /HPF (0.0-6.0) 12/15/17 20:01 Urine RBC (Auto) 3.0 /HPF (0.0-6.0) 12/15/17 20:01 U Epithel Cells (Auto) < 1.0 /HPF (0-13.0) 12/15/17 20:01 Urine Bacteria (Auto) 1+ /HPF (Negative) 12/15/17 20:01 Urine Mucus Few /HPF 12/15/17 20:01 Blood Type B POSITIVE 12/15/17 14:56 Antibody Screen Negative 12/15/17 14:56 Crossmatch See Detail 12/15/17 14:56
[2017-12-18] MEDS: CATAPRES PO SCH (15:04)
[2017-12-18] MEDS: NORMODYNE PO SCH ×2 (15:07→23:53)
[2017-12-18 16:22] LABS: Calcium 7.3 mg/dL (8.4-10.2)
[2017-12-18] MEDS: TYLENOL PO SCH (23:50)
[2017-12-18] MEDS: BENADRYL PO SCH (23:52)
[2017-12-19] MEDS: CATAPRES PO SCH ×4 (01:47→19:06)
[2017-12-19] MEDS: FLAGYL PO SCH ×3 (06:56→23:04)
[2017-12-19 07:44] LABS: Hemoglobin 6.7 gm/dl (11.8-15.2); Mean Corpuscular HGB Conc 35 % (32-34); Mean Corpuscular Hemoglobin 30 pg (28-32); Mean Corpuscular Volume 86 fl (84-94); Red Blood Count 2.25 M/mm3 (3.65-5.03); Red Cell Distribution Width 15.3 % (13.2-15.2)
[2017-12-19 08:07] LABS: Hematocrit 19.4 % (35.5-45.6); Platelet Count 98 K/mm3 (140-440)
[2017-12-19] MEDS: PERCOCET 5/325 PO PRN ×3 (08:54→21:20)
--- NOTE | 2017-12-19 09:24 | Hem/Onc Progress Note ---
Assessment and Plan givens cytopenia secondary to medication. white count is slowly improving on neupogen. Continue Neupogen. Monitor counts. Discussed with patient. Continue to hold CellCept and methimazole. to get 1 unit of packed RBC with HD Subjective Date of service: 12/19/17 Interval history: Patient feels fair. Denies any fevers. Denies any cough. Denies any diarrhea. Objective - Constitutional Vitals: Last Vital Signs Temp 98.4 F 12/19/17 07:31 Pulse 81 12/19/17 07:31 Resp 20 12/19/17 07:31 BP 115/63 12/19/17 07:31 Pulse Ox 95 12/19/17 07:31 Pain Intensity (0-10): denies any pain General appearance: no acute distress Performance status: 2- selfcare, ambulatory - Neck Neck: supple - Respiratory Respiratory effort: Positive: normal - Cardiovascular Rhythm: regular Extremities: No edema - Labs Lab Results: Laboratory Results - last 24 hr 12/15/17 12/18/17 12/18/17 14:56 13:09 15:50 WBC 0.6 L* RBC 2.23 L Hgb 6.6 L Hct 19.2 L* MCV 86 MCH 30 MCHC 34 RDW 15.2 Plt Count 87 L [place] % (Auto) [employer] Supervisor Add Manual Diff Complete Total Counted 25 Seg Neuts % (Manual) 40.0 Band Neutrophils % 8.0 Lymphocytes % (Manual) 24.0 Reactive Lymphs % (Man) 0 Monocytes % (Manual) 28.0 H Eosinophils % (Manual) 0 Basophils % (Manual) 0 Metamyelocytes % 0 Myelocytes % 0 Promyelocytes % 0 Blast Cells % 0 Nucleated RBC % Not Reportable Seg Neutrophils # Man 0.2 L Band Neutrophils # 0.0 Lymphocytes # (Manual) 0.1 L Abs React Lymphs (Man) 0.0 Monocytes # (Manual) 0.2 Eosinophils # (Manual) 0.0 Basophils # (Manual) 0.0 Metamyelocytes # 0.0 Myelocytes # 0.0 Promyelocytes # 0.0 Blast Cells # 0.0 WBC Morphology Not Reportable Hypersegmented Neuts Not Reportable Hyposegmented Neuts Not Reportable Hypogranular Neuts Not Reportable Smudge Cells Not Reportable Toxic Granulation Not Reportable Toxic Vacuolation Not Reportable Dohle Bodies Not Reportable Pelger-Huet Anomaly Not Reportable Kam Rods Not Reportable Platelet Estimate Not Reportable Clumped Platelets Not Reportable Plt Clumps, EDTA Not Reportable Large Platelets Not Reportable Giant Platelets Not Reportable Platelet Satelliting Not Reportable Plt Morphology Comment Not Reportable RBC Morphology Not Reportable Dimorphic RBCs Not Reportable Polychromasia Not Reportable Hypochromasia Not Reportable Poikilocytosis Not Reportable Anisocytosis Few Microcytosis Not Reportable Macrocytosis Not Reportable Spherocytes Not Reportable Pappenheimer Bodies Not Reportable Sickle Cells Not Reportable Target Cells Not Reportable Tear Drop Cells Not Reportable Ovalocytes Not Reportable Helmet Cells Not Reportable [place] Bodies Not Reportable [place] Rings Not Reportable [place] Cells Not Reportable Bite Cells Not Reportable Crenated Cell Not Reportable Elliptocytes Not Reportable Acanthocytes (Spur) Not Reportable Rouleaux Not Reportable Hemoglobin C Crystals Not Reportable Schistocytes Not Reportable Malaria parasites Not Reportable Nasir Bodies Not Reportable Hem Pathologist Commnt No Sodium 139 Potassium 4.6 Chloride 97.4 L Carbon Dioxide 27 Anion Gap 19 BUN 44 H Creatinine 4.0 H Estimated GFR 22 BUN/Creatinine Ratio 11 Glucose 114 H Calcium 7.3 L Blood Type Antibody Screen Crossmatch See Detail 12/18/17 12/19/17 18:21 06:55 WBC 1.4 L* RBC 2.25 L Hgb 6.7 L Hct 19.4 L* MCV 86 MCH 30 MCHC 35 H RDW 15.3 H Plt Count 98 L [place] % (Auto) Add Manual Diff Total Counted Seg Neuts % (Manual) Band Neutrophils % Lymphocytes % (Manual) Reactive Lymphs % (Man) Monocytes % (Manual) Eosinophils % (Manual) Basophils % (Manual) Metamyelocytes % Myelocytes % Promyelocytes % Blast Cells % Nucleated RBC % Seg Neutrophils # Man Band Neutrophils # Lymphocytes # (Manual) Abs React Lymphs (Man) Monocytes # (Manual) Eosinophils # (Manual) Basophils # (Manual) Metamyelocytes # Myelocytes # Promyelocytes # Blast Cells # WBC Morphology Hypersegmented Neuts Hyposegmented Neuts Hypogranular Neuts Smudge Cells Toxic Granulation Toxic Vacuolation Dohle Bodies Pelger-Huet Anomaly Kma Rods Platelet Estimate Clumped Platelets Plt Clumps, EDTA Large Platelets Giant Platelets Platelet Satelliting Plt Morphology Comment RBC Morphology Dimorphic RBCs Polychromasia Hypochromasia Poikilocytosis Anisocytosis Microcytosis Macrocytosis Spherocytes Pappenheimer Bodies Sickle Cells Target Cells Tear Drop Cells Ovalocytes Helmet Cells [place] Bodies [place] Rings Nunu Cells Bite Cells Crenated Cell Elliptocytes Acanthocytes (Spur) Rouleaux Hemoglobin C Crystals Schistocytes Malaria parasites Nasir Bodies Hem Pathologist Commnt Sodium Potassium Chloride Carbon Dioxide Anion Gap BUN Creatinine Estimated GFR BUN/Creatinine Ratio Glucose Calcium Blood Type B POSITIVE Antibody Screen Negative Crossmatch
--- NOTE | 2017-12-19 09:26 | Consultation ---
History of Present Illness - Reason for Consult Consult date: 12/19/17 neutropenic fever Requesting physician: CONNOR HERNANDEZ - History of Present Illness 31 years old male with history of lupus on plaquenil and CKD, well known to ID since he was recently discharged 10/25-11/15/17. He came to the ER with severe anemia, hyperkalemia and acute renal failure. During that admission he was found to have FRANKLYN on CKD transitioned to ESRD started on HD, had kidney biopsy + Class III lupus started on high dose solumedrol and CellCept. He had a permacath for HD. Received multiple blood transfusions. Also found to have Enterobacter UTI treated with levaquin total 7 days from 11/04-11/10 (penicillin allergy). Also he was recently started on methimazole for hyperthiroidism. unfortunately, he was re-admitted on 12/15/17 from HD center, when he was found severely pancytopenic- Hg <6, neutropenic <1. He reports feeling sick, debilitated last 1-2 weeks and chills for last week. Denies any recent fever, cough, sore throat, runny nose, N/V/D, abdominal pain, melena, hematemesis. In the ED, temp 98.8 but next day went to 100.2 and on 12/18 102.8. His initial HR 106, R18, O2 sat 100%, BP 110/66. Initial WBC 0.6, Hg 5.4, plat 80. Creat 4.1. UA neg. Microbiology: none Current Antimicrobials: Levaquin Vancomycin Cefepime Previous Antimicrobials: Past History Past Medical History: anemia, ESRD, hypertension, other (SLE, Lupus Nephritis) Past Surgical History: Other (Right IJ perm-catheter placement) Social history: single. denies: smoking, alcohol abuse, prescription drug abuse Family history: hypertension Medications and Allergies Allergies Allergy/AdvReac Type Severity Reaction Status Date / Time amoxicillin Allergy Itching Verified 12/15/17 14:42 ibuprofen [From Motrin] Allergy Itching Verified 12/15/17 14:42 Home Medications Medication Instructions Recorded Confirmed Last Taken Type Acetaminophen/Diphenhydramine 1 each PO QHS 10/25/17 10/25/17 10/24/17 History [Tylenol Pm Ex-Strength Caplet] Multivitamin Tab [Multiple Vitamin 1 each PO QDAY 10/25/17 10/25/17 10/24/17 History TAB (Theragran)] Calcitriol [Rocaltrol] 0.5 mcg PO QDAY #30 capsule 11/02/17 Unknown Rx Hydroxychloroquine [Plaquenil] 400 mg PO QDAY #60 tablet 11/02/17 Unknown Rx Methimazole [Tapazole] 5 mg PO QDAY #30 tablet 11/02/17 Unknown Rx Sevelamer Carbonate [Renvela] 1,600 mg PO AC #120 tablet 11/02/17 Unknown Rx amLODIPine [Norvasc] 10 mg PO DAILY #30 tablet 11/02/17 Unknown Rx cloNIDine [Catapres] 0.1 mg PO Q8H #90 tablet 11/02/17 Unknown Rx oxyCODONE /ACETAMINOPHEN [Percocet 1 tab PO Q6H PRN #12 tablet 11/02/17 Unknown Rx 5/325 mg] Labetalol [Normodyne TAB] 300 mg PO BID #60 tablet 11/15/17 Unknown Rx Mycophenolate [Cellcept] 1,500 mg PO BID #60 tablet 11/15/17 Unknown Rx predniSONE [Deltasone] 60 mg PO DAILY 30 Days tablet 11/15/17 Unknown Rx Active Meds: Active Medications Acetaminophen (Tylenol) 500 mg PO QHS [facility] Last Admin: 12/18/17 23:50 Dose: 500 mg Acetaminophen (Tylenol) 650 mg PO Q12H PRN PRN Reason: Pain MILD(1-3)/Fever >100.5/HAYNES Last Admin: 12/18/17 09:32 Dose: 650 mg Albuterol (Proventil) 2.5 mg IH Q4HRT PRN PRN Reason: Shortness Of Breath Amlodipine Besylate (Norvasc) 10 mg PO DAILY [facility] Last Admin: 12/18/17 09:50 Dose: 10 mg Calcitriol (Rocaltrol) 0.5 mcg PO QDAY [facility] Last Admin: 12/18/17 11:03 Dose: 0.5 mcg Clonidine HCl (Catapres) 0.1 mg PO Q8H [facility] Last Admin: 12/19/17 01:47 Dose: Not Given Diphenhydramine HCl (Benadryl) 25 mg PO QHS [facility] Last Admin: 12/18/17 23:52 Dose: 25 mg Epoetin Nito (Procrit) 10,000 unit SUB-Q MOWEFR [facility] Last Admin: 12/17/17 18:23 Dose: 10,000 unit Hydroxychloroquine Sulfate (Plaquenil) 400 mg PO QDAY [facility] Last Admin: 12/18/17 09:50 Dose: 400 mg Sodium Chloride (Nacl 0.9%) 100 mls @ 999 mls/hr IV VELASQUEZ PRN PRN Reason: Hypotension Levofloxacin/Dextrose (Levaquin 500mg/100ml) 500 mg in 100 mls @ 100 mls/hr IV Q48H RAMOS Sodium Chloride (Nacl 0.9%) 100 mls @ 999 mls/hr IV VELASQUEZ PRN PRN Reason: Hypotension Cefepime HCl (Maxipime/Ns 1 Gm/100 Ml) 1 gm in 100 mls @ 200 mls/hr IV Q24HR [facility] PRN Reason: Protocol Labetalol HCl (Normodyne) 300 mg PO BID [facility] Last Admin: 12/18/17 23:53 Dose: 300 mg Metronidazole (Flagyl) 500 mg PO Q8HR [facility] Last Admin: 12/19/17 06:56 Dose: 500 mg Multivitamins (Theragran Tab) 1 each PO QDAY [facility] Last Admin: 12/18/17 09:49 Dose: 1 each Ondansetron HCl (Zofran) 4 mg IV Q8H PRN PRN Reason: N/V unrelieved by Adis Last Admin: 12/18/17 03:28 Dose: 4 mg Oxycodone/Acetaminophen (Percocet 5/325) 1 tab PO Q6H PRN PRN Reason: Pain, Moderate (4-6) Last Admin: 12/19/17 08:54 Dose: 1 tab Prednisone (Deltasone) 50 mg PO DAILY [facility] Last Admin: 12/18/17 09:49 Dose: 50 mg Sevelamer Carbonate (Renvela) 1,600 mg PO AC [facility] Last Admin: 12/18/17 16:51 Dose: 1,600 mg Tbo-Filgrastim (Granix) 480 mcg SUB-Q DAILY [facility] Last Admin: 12/18/17 11:02 Dose: 480 mcg Vancomycin HCl (Vancomycin Pharmacy To Dose) 1 each IV PKCONSULT [facility] PRN Reason: Protocol Review of Systems All systems: negative (as per HPI rest 10 point ROS neg) Physical Examination - Physical Exam Narrative exam: General appearance: Alert in NAD, conversant Eyes: anicteric sclerae, moist conjunctivae; no lid-lag; PERRLA HENT: Atraumatic; oropharynx clear Neck: Trachea midline; supple, no thyromegaly or lymphadenopathy Lungs: CTA CV: RRR, no murmurs Abdomen: Soft, non-tender; no masses or hepatosplenomegaly Extremities: No peripheral edema or extremity lymphadenopathy Skin: Normal temperature, turgor and texture; no rash, ulcers or subcutaneous nodules Psych: Appropriate affect, alert and oriented to person, place and time. Neuro: alert and oriented x 3. Moving all extermities Lines: right SC HD perm cath - Constitutional Vitals: Vital Signs Temp Pulse Resp BP Pulse Ox 98.4 F 81 20 115/63 95 12/19/17 07:31 12/19/17 07:31 12/19/17 07:31 12/19/17 07:31 12/19/17 07:31 Temperature -Last 24 Hours Temperature 98.4 F Temperature 98.8 F Temperature 98.4 F Temperature 98.7 F Temperature 99.3 F Temperature 99.7 F Results - Labs CBC & Chem 7: 12/19/17 06:55 12/18/17 15:50 Labs: Abnormal lab results 12/15/17 12/18/17 12/18/17 Range/Units 14:56 13:09 15:50 WBC 0.6 L* (4.5-11.0) K/mm3 RBC 2.23 L (3.65-5.03) M/mm3 Hgb 6.6 L (11.8-15.2) gm/dl Hct 19.2 L* (35.5-45.6) % MCHC (32-34) % RDW (13.2-15.2) % Plt Count 87 L (140-440) K/mm3 Monocytes % (Manual) 28.0 H (0.0-7.3) % Seg Neutrophils # Man 0.2 L (1.8-7.7) K/mm3 Lymphocytes # (Manual) 0.1 L (1.2-5.4) K/mm3 Chloride 97.4 L (98-107) mmol/L BUN 44 H (9-20) mg/dL Creatinine 4.0 H (0.8-1.5) mg/dL Glucose 114 H (75-100) mg/dL Calcium 7.3 L (8.4-10.2) mg/dL Crossmatch See Detail 12/19/17 Range/Units 06:55 WBC 1.4 L* (4.5-11.0) K/mm3 RBC 2.25 L (3.65-5.03) M/mm3 Hgb 6.7 L (11.8-15.2) gm/dl Hct 19.4 L* (35.5-45.6) % MCHC 35 H (32-34) % RDW 15.3 H (13.2-15.2) % Plt Count 98 L (140-440) K/mm3 Monocytes % (Manual) (0.0-7.3) % Seg Neutrophils # Man (1.8-7.7) K/mm3 Lymphocytes # (Manual) (1.2-5.4) K/mm3 Chloride (98-107) mmol/L BUN (9-20) mg/dL Creatinine (0.8-1.5) mg/dL Glucose (75-100) mg/dL Calcium (8.4-10.2) mg/dL Crossmatch Assessment and Plan Assessment: 1) SIRS with severe neutropenia (?neutropenic fever): Present on admission, manifested by fever, tachycardia, neutropenia. Etiology unclear. DDx. bacteremia, cath-associated blood stream infection, pneumonia, influenza. CXR negative. 2) Severe pancytopenia: likely from meds - CellCept / methimazole, already stopped 3) ESRD - kidney biopsy + Class III lupus started on high dose solumedrol and CellCept via permacath for HD. 4) Recent Enterobacter UTI treated with levaquin total 7 days from 11/04-11/10 ( penicillin allergy). 5) Hyperthiroidism - he was on methimazole 6) Lupus with lupus nephritis 7) Penicillin allergy Plan: -stat blood cultures -obtain C-reactive protein (CRP) -check influenza antigen PCR in nasopharinx -repeat CXR -start tamiflu for now -continue levaquin, vanco reanlly dosed -stop cefepime in view of pen allergy -if fever continues without a source will ask renal to remove permcath Thank you Dr Hernandez for your consultation, will follow up with you. Kat Vallecillo MD Infectious Diseases Specialist [facility] ([facility] [phone]
[2017-12-19 09:39] LABS: Band Neutrophils # (Manual) 0.2 K/mm3; Basophils % (Manual) 0 % (0.0-1.8); Total Cells Counted 20
[2017-12-19 09:40] LABS: Anisocytosis 1+; Ovalocytes Few; Platelet Estimate Appears Decreased; Tear Drop Cells Rare
[2017-12-19] MEDS ORDERED: HEPARIN ONE (09:50)
[2017-12-19] MEDS ORDERED: MAXIPIME/NS 1 GM/100 ML 1 GM/100 ML BAG IV SCH (10:00)
--- NOTE | 2017-12-19 10:54 | Progress Note ---
Assessment and Plan (1) End stage kidney disease Current Visit: Yes Status: Acute Plan to address problem: HD today for clearance and volume removal Fluid restriction of 32 ounces per day Obtain daily weights Monitor I/O's Renally dose medications Reenforced compliance with outpatient HD Assess dialysis needs daily (2) Pancytopenia with anemia of chronic disease due to ESRD: Current Visit: Yes Status: Acute Plan to address problem: Possible secondary to Cellcept Hold Cellcept for now Transfuse PRN per primary Hematology consulted, on neuopogen. will increase epogen to 20,000 unit s SQ MWF (3) HTN (hypertension) Current Visit: Yes Status: Acute Qualifiers: Hypertension type: essential hypertension Qualified Code(s): I10 - Essential (primary) hypertension Plan to address problem: Titrate BP to keep SBP <130 (4) Lupus nephritis Current Visit: Yes Status: Acute Plan to address problem: Hold Cellcept for now due to Pancytopenia Subjective Date of service: 12/19/17 Principal diagnosis: ESRD on HD Interval history: seen during HD, tolerating Objective - Vital Signs Vital signs: Vital Signs - 12hr 12/18/17 12/19/17 12/19/17 23:53 00:03 01:47 Temperature 98.4 F Pulse Rate 75 83 Respiratory 18 Rate Blood Pressure 116/72 114/69 116/70 O2 Sat by Pulse 95 Oximetry 12/19/17 12/19/17 12/19/17 05:33 07:31 10:42 Temperature 98.8 F 98.4 F 99.2 F Pulse Rate 82 81 90 Respiratory 18 20 18 Rate Blood Pressure 118/72 115/63 131/72 O2 Sat by Pulse 95 95 Oximetry 12/19/17 10:45 Temperature Pulse Rate 86 Respiratory Rate Blood Pressure 135/70 O2 Sat by Pulse Oximetry - General Appearance General appearance: well-developed, well-nourished, appears stated age EENT: ATNC, PERRL, mucous membranes moist Neck: no JVD, no carotid bruit Respiratory: Present: Clear to Ascultation. Absent: Rales, Ronchi Cardiology: regular, S1S2 Gastrointestinal: normoactive bowel sounds, no tenderness, no distended Integumentary: no rash, warm and dry Neurologic: no focal deficit, no asterixis, alert and oriented x3 Musculoskeletal: other (no edema in BLE) Psychiatric: mood/affect appropriate, cooperative - Lab 12/19/17 06:55 12/18/17 15:50 Most recent lab results Calcium 7.3 mg/dL (8.4-10.2) L 12/18/17 15:50 Phosphorus 5.10 mg/dL (2.5-4.5) H 12/17/17 06:06
[2017-12-19] MEDS ORDERED: TAMIFLU PO SCH (11:00)
[2017-12-19] MEDS: RENVELA PO SCH ×2 (12:17→17:27)
[2017-12-19] MEDS ORDERED: PROCRIT SUB-Q SCH (12:22)
--- NOTE | 2017-12-19 12:40 | Progress Note ---
Assessment and Plan Assessment and plan: Patient is a 31 yo man with a history of ESRD on hemodialysis, chronic anemia, chronic pain syndrome, SLE with lupus nephritis and hyperthyroidism who presented to the emergency department with low hemoglobin and fatigue. Patient states he sees at [facility] for SLE and his prednisone was decreased, also he admits to missing his dialysis on occasions -Acute on chronic anemia of chronic disease: Status post 2 units of blood: repeat H&H and monitor closely -ESRD: Consult nephrology for hemodialysis -Pancytopenia: consult heme/onc -SLE: consulted heme/onc -Hyperthyroisim on tapezole: checked free T4, ok, continue current tapezole dose. per hem/onc, Dr. Moy: "givens cytopenia secondary to medication. Agents white count is still very low. We will start Neupogen. Monitor counts. Discussed with patient. Continue to hold CellCept and methimazole." 12/18/17: febrile now, consulted ID, started iv vancomycin and levaquin/flagyl ( allergic to pcn with hives and lip swelling, no hold off on cefepime, await ID consult) 12/19/17: Blood culture sent today after abx started. WBC dropping, History Interval history: Patient was seen and examined. Follow-up on current diagnosis of fatigue which has improved. > First fever around 7am yesterday morning, non so far, but I started abx, Patient denies any chest pain, shortness breath, nausea/vomiting or severe headaches. Imaging, nursing note, chart, labs and old chart reviewed. Discussed with patient. Hospitalist Physical - Physical exam Narrative exam: GEN: WDWN, NAD, AWAKE, ALERT, ORIENTATED 3 HEENT: NCAT, EOMI, PERRL, OP Clear NECK: supple, no adenopathy, no thyromegaly, no JVD CVS/HEART: RRR, NORMAL S1S2, NO JVD, pulses present bilaterally CHEST/LUNGS: CTA B, Symmetrical chest expansion, good air entry bilaterally, right chest wall hemodialysis catheter GI/Abdomen: soft, NTND, good bowel sounds, no guarding or rebound /Bladder: no suprapubic tenderness, no CVA or paraspinal tenderness EXT/Skin: no c/c/e, MSK: FROM x 4 Neuro: CN 2-12 grossly intact, no new focal deficits Psych: calm - Constitutional Vitals: Temp Pulse Resp BP Pulse Ox 99.2 F 92 H 18 131/73 95 12/19/17 10:42 12/19/17 12:15 12/19/17 10:42 12/19/17 12:15 12/19/17 07:31 General appearance: Absent: mild distress Results - Labs CBC & Chem 7: 12/19/17 06:55 12/18/17 15:50 Labs: Laboratory Last Values WBC 1.4 K/mm3 (4.5-11.0) L* 12/19/17 06:55 RBC 2.25 M/mm3 (3.65-5.03) L 12/19/17 06:55 Hgb 6.7 gm/dl (11.8-15.2) L 12/19/17 06:55 Hct 19.4 % (35.5-45.6) L* 12/19/17 06:55 MCV 86 fl (84-94) 12/19/17 06:55 MCH 30 pg (28-32) 12/19/17 06:55 MCHC 35 % (32-34) H 12/19/17 06:55 RDW 15.3 % (13.2-15.2) H 12/19/17 06:55 Plt Count 98 K/mm3 (140-440) L 12/19/17 06:55 [place] % (Auto) [employer] 12/18/17 13:09 Add Manual Diff Complete 12/19/17 06:55 Total Counted 20 12/19/17 06:55 Seg Neutrophils % [employer] Teacher 12/17/17 06:06 Seg Neuts % (Manual) 65.0 % (40.0-70.0) 12/19/17 06:55 Band Neutrophils % 15.0 % 12/19/17 06:55 Lymphocytes % (Manual) 10.0 % (13.4-35.0) L 12/19/17 06:55 Reactive Lymphs % (Man) 0 % 12/19/17 06:55 Monocytes % (Manual) 5.0 % (0.0-7.3) 12/19/17 06:55 Eosinophils % (Manual) 5.0 % (0.0-4.3) H 12/19/17 06:55 Basophils % (Manual) 0 % (0.0-1.8) 12/19/17 06:55 Metamyelocytes % 0 % 12/19/17 06:55 Myelocytes % 0 % 12/19/17 06:55 Promyelocytes % 0 % 12/19/17 06:55 Blast Cells % 0 % 12/19/17 06:55 Nucleated RBC % Not Reportable 12/19/17 06:55 Seg Neutrophils # Man 0.9 K/mm3 (1.8-7.7) L 12/19/17 06:55 Band Neutrophils # 0.2 K/mm3 12/19/17 06:55 Lymphocytes # (Manual) 0.1 K/mm3 (1.2-5.4) L 12/19/17 06:55 Abs React Lymphs (Man) 0.0 K/mm3 12/19/17 06:55 Monocytes # (Manual) 0.1 K/mm3 (0.0-0.8) 12/19/17 06:55 Eosinophils # (Manual) 0.1 K/mm3 (0.0-0.4) 12/19/17 06:55 Basophils # (Manual) 0.0 K/mm3 (0.0-0.1) 12/19/17 06:55 Metamyelocytes # 0.0 K/mm3 12/19/17 06:55 Myelocytes # 0.0 K/mm3 12/19/17 06:55 Promyelocytes # 0.0 K/mm3 12/19/17 06:55 Blast Cells # 0.0 K/mm3 12/19/17 06:55 WBC Morphology Not Reportable 12/19/17 06:55 Hypersegmented Neuts Not Reportable 12/19/17 06:55 Hyposegmented Neuts Not Reportable 12/19/17 06:55 Hypogranular Neuts Not Reportable 12/19/17 06:55 Smudge Cells Not Reportable 12/19/17 06:55 Toxic Granulation Not Reportable 12/19/17 06:55 Toxic Vacuolation Not Reportable 12/19/17 06:55 Dohle Bodies Not Reportable 12/19/17 06:55 Pelger-Huet Anomaly Not Reportable 12/19/17 06:55 Kam Rods Not Reportable 12/19/17 06:55 Platelet Estimate Appears decreased 12/19/17 06:55 Clumped Platelets Not Reportable 12/19/17 06:55 Plt Clumps, EDTA Not Reportable 12/19/17 06:55 Large Platelets Not Reportable 12/19/17 06:55 Giant Platelets Not Reportable 12/19/17 06:55 Platelet Satelliting Not Reportable 12/19/17 06:55 Plt Morphology Comment Not Reportable 12/19/17 06:55 RBC Morphology Not Reportable 12/19/17 06:55 Dimorphic RBCs Not Reportable 12/19/17 06:55 Polychromasia Not Reportable 12/19/17 06:55 Hypochromasia Not Reportable 12/19/17 06:55 Poikilocytosis Not Reportable 12/19/17 06:55 Anisocytosis 1+ 12/19/17 06:55 Microcytosis Not Reportable 12/19/17 06:55 Macrocytosis Not Reportable 12/19/17 06:55 Spherocytes Not Reportable 12/19/17 06:55 Pappenheimer Bodies Not Reportable 12/19/17 06:55 Sickle Cells Not Reportable 12/19/17 06:55 Target Cells Not Reportable 12/19/17 06:55 Tear Drop Cells Rare 12/19/17 06:55 Ovalocytes Few 12/19/17 06:55 Helmet Cells Not Reportable 12/19/17 06:55 Stanley-Aspen Bodies Not Reportable 12/19/17 06:55 Runge Rings Not Reportable 12/19/17 06:55 [place] Cells Not Reportable 12/19/17 06:55 Bite Cells Not Reportable 12/19/17 06:55 Crenated Cell Not Reportable 12/19/17 06:55 Elliptocytes Rare 12/19/17 06:55 Acanthocytes (Spur) Not Reportable 12/19/17 06:55 Rouleaux Not Reportable 12/19/17 06:55 Hemoglobin C Crystals Not Reportable 12/19/17 06:55 Schistocytes Not Reportable 12/19/17 06:55 Malaria parasites Not Reportable 12/19/17 06:55 Percent Retic 0.85 % (0.78-2.58) 12/17/17 06:06 Nasir Bodies Not Reportable 12/19/17 06:55 Hem Pathologist Commnt No 12/19/17 06:55 PT 13.4 Sec. (12.2-14.9) 12/15/17 14:56 INR 0.97 (0.87-1.13) 12/15/17 14:56 APTT 26.6 Sec. (24.2-36.6) 12/15/17 14:56 Sodium 139 mmol/L (137-145) 12/18/17 15:50 Potassium 4.6 mmol/L (3.6-5.0) 12/18/17 15:50 Chloride 97.4 mmol/L (98-107) L 12/18/17 15:50 Carbon Dioxide 27 mmol/L (22-30) 12/18/17 15:50 Anion Gap 19 mmol/L 12/18/17 15:50 BUN 44 mg/dL (9-20) H 12/18/17 15:50 Creatinine 4.0 mg/dL (0.8-1.5) H 12/18/17 15:50 Estimated GFR 22 ml/min 12/18/17 15:50 BUN/Creatinine Ratio 11 % 12/18/17 15:50 Glucose 114 mg/dL (75-100) H 12/18/17 15:50 Calcium 7.3 mg/dL (8.4-10.2) L 12/18/17 15:50 Phosphorus 5.10 mg/dL (2.5-4.5) H 12/17/17 06:06 Iron 73 ug/dL (49-181) 12/17/17 06:06 TIBC 118 mcg/dL (250-450) L 12/17/17 06:06 Total Bilirubin 0.20 mg/dL (0.1-1.2) 12/17/17 06:06 AST 10 units/L (5-40) 12/17/17 06:06 ALT 13 units/L (7-56) 12/17/17 06:06 Alkaline Phosphatase 42 units/L (35-129) 12/17/17 06:06 Lactate Dehydrogenase 201 units/L (91-180) H 12/17/17 06:06 C-Reactive Protein 9.70 mg/dL (0.00-1.30) H 12/19/17 09:29 Total Protein 5.1 g/dL (6.3-8.2) L 12/17/17 06:06 Albumin 2.5 g/dL (3.9-5) L 12/17/17 06:06 Albumin/Globulin Ratio 1.0 % 12/17/17 06:06 Free T4 0.89 ng/dL (0.76-1.46) 12/16/17 15:32 Urine Color Yellow (Yellow) 12/15/17 20:01 Urine Turbidity Clear (Clear) 12/15/17 20:01 Urine pH 5.0 (5.0-7.0) 12/15/17 20:01 Ur Specific [place] 1.018 (1.003-1.030) 12/15/17 20:01 Urine Protein 100 mg/dl mg/dL (Negative) 12/15/17 20:01 Urine Glucose (UA) Neg mg/dL (Negative) 12/15/17 20:01 Urine Ketones Neg mg/dL (Negative) 12/15/17 20:01 Urine Blood Neg (Negative) 12/15/17 20:01 Urine Nitrite Neg (Negative) 12/15/17 20:01 Urine Bilirubin Neg (Negative) 12/15/17 20:01 Urine Urobilinogen < 2.0 mg/dL (<2.0) 12/15/17 20:01 Ur Leukocyte Esterase Neg (Negative) 12/15/17 20:01 Urine WBC (Auto) 2.0 /HPF (0.0-6.0) 12/15/17 20:01 Urine RBC (Auto) 3.0 /HPF (0.0-6.0) 12/15/17 20:01 U Epithel Cells (Auto) < 1.0 /HPF (0-13.0) 12/15/17 20:01 Urine Bacteria (Auto) 1+ /HPF (Negative) 12/15/17 20:01 Urine Mucus Few /HPF 12/15/17 20:01 Blood Type B POSITIVE 12/18/17 18:21 Antibody Screen Negative 12/18/17 18:21 Crossmatch See Detail 12/15/17 14:56
[2017-12-19] MEDS: DELTASONE PO SCH (17:26)
[2017-12-19] MEDS: ROCALTROL PO SCH (17:27)
[2017-12-19] MEDS: THERAGRAN Tab PO SCH (17:27)
[2017-12-19] MEDS: PLAQUENIL PO SCH (17:27)
[2017-12-19] MEDS: NORVASC PO SCH (17:28)
[2017-12-19] MEDS: NORMODYNE PO SCH ×2 (17:28→23:05)
[2017-12-19] MEDS: TAMIFLU PO SCH (17:28)
[2017-12-19] MEDS: GRANIX SUB-Q SCH (19:07)
[2017-12-19] MEDS ORDERED: VANCOMYCIN/NS 1 GM/250 ML 1 GM/250 ML BAG IV SCH (20:00)
[2017-12-19] MEDS: BENADRYL PO SCH (23:03)
[2017-12-19] MEDS: TYLENOL PO SCH (23:04)
[2017-12-20] MEDS: CATAPRES PO SCH ×4 (01:22→18:42)
[2017-12-20] MEDS: PERCOCET 5/325 PO PRN ×4 (03:10→22:17)
[2017-12-20] MEDS: FLAGYL PO SCH ×3 (06:18→22:17)
[2017-12-20 07:25] LABS: Hematocrit 20.1 % (35.5-45.6); Hemoglobin 6.6 gm/dl (11.8-15.2); Mean Corpuscular HGB Conc 33 % (32-34); Mean Corpuscular Hemoglobin 29 pg (28-32); Mean Corpuscular Volume 87 fl (84-94); Red Blood Count 2.32 M/mm3 (3.65-5.03); Red Cell Distribution Width 15.3 % (13.2-15.2)
[2017-12-20 07:29] LABS: Platelet Count 85 K/mm3 (140-440)
[2017-12-20] MEDS: RENVELA PO SCH ×3 (09:45→18:42)
[2017-12-20] MEDS: PLAQUENIL PO SCH (09:49)
[2017-12-20] MEDS: NORMODYNE PO SCH ×2 (09:50→22:18)
[2017-12-20] MEDS: ROCALTROL PO SCH (09:50)
[2017-12-20] MEDS: THERAGRAN Tab PO SCH (09:51)
[2017-12-20] MEDS: DELTASONE PO SCH (09:51)
[2017-12-20] MEDS: NORVASC PO SCH (09:54)
--- NOTE | 2017-12-20 10:00 | Hem/Onc Progress Note ---
Assessment and Plan White count slowly improving. Continue Neupogen. Blood has not been given we will go ahead and give it today Subjective Date of service: 12/20/17 Interval history: Patient feels fair. Denies any fevers. Denies any cough. Denies any diarrhea. Objective - Constitutional Vitals: Last Vital Signs Temp 99.7 F H 12/20/17 07:50 Pulse 91 H 12/20/17 09:48 Resp 18 12/20/17 07:50 BP 125/74 12/20/17 09:48 Pulse Ox 95 12/20/17 07:50 Pain Intensity (0-10): denies any pain General appearance: no acute distress Performance status: 2- selfcare, ambulatory - Neck Neck: supple - Respiratory Respiratory effort: Positive: normal - Cardiovascular Rhythm: regular Extremities: No edema - Gastrointestinal General gastrointestinal: Present: soft - Labs Lab Results: Laboratory Results - last 24 hr 12/18/17 12/19/17 12/20/17 18:21 09:29 06:00 WBC 2.3 L RBC 2.32 L Hgb 6.6 L Hct 20.1 L MCV 87 MCH 29 MCHC 33 RDW 15.3 H Plt Count 85 L C-Reactive Protein 9.70 H Random Vancomycin Crossmatch See Detail 12/20/17 06:00 WBC RBC Hgb Hct MCV MCH MCHC RDW Plt Count C-Reactive Protein Random Vancomycin 29.3 Crossmatch
--- NOTE | 2017-12-20 10:01 | Progress Note ---
Assessment and Plan Assessment: 1) SIRS with severe neutropenia (?neutropenic fever): improving. Etiology unclear. DDx. bacteremia, cath-associated blood stream infection, pneumonia, influenza, lupus flare?. CRP=9.7 2) Severe pancytopenia: likely from meds - CellCept / methimazole, already stopped, better on neupogen 3) ESRD - kidney biopsy + Class III lupus started on high dose solumedrol and CellCept via permacath for HD. 4) Recent Enterobacter UTI treated with levaquin total 7 days from 11/04-11/10 ( penicillin allergy). 5) Hyperthiroidism - he was on methimazole 6) Lupus with lupus nephritis 7) Penicillin allergy 8) Cough: CXR neg Plan: -f/u blood cultures -obtain C3/C4 -check influenza antigen PCR in nasopharinx - pending -repeat CXR today -continue levaquin and vanco renally dosed -continue tamiflu -if fever continues without a source will ask renal to remove permcath Thank you Dr Hernandez for your consultation, will follow up with you. Kat Vallecillo MD Infectious Diseases Specialist [facility] [phone] Subjective Date of service: 12/20/17 Principal diagnosis: fever and neutropenia Interval history: Feels better fever trending down. Microbiology: blood culture 10/19 ngtd Current Antimicrobials: Levaquin 12/20 flagyl 12/18 Vancomycin 12/18 Previous Antimicrobials: Cefepime Objective - Exam Narrative Exam: General appearance: Alert in NAD, conversant Eyes: anicteric sclerae, moist conjunctivae; no lid-lag; PERRLA HENT: Atraumatic; oropharynx clear Neck: Trachea midline; supple, no thyromegaly or lymphadenopathy Lungs: CTA CV: RRR, no murmurs Abdomen: Soft, non-tender; no masses or hepatosplenomegaly Extremities: No peripheral edema or extremity lymphadenopathy Skin: Normal temperature, turgor and texture; no rash, ulcers or subcutaneous nodules Psych: Appropriate affect, alert and oriented to person, place and time. Neuro: alert and oriented x 3. Moving all extermities Lines: right SC HD perm cath - Constitutional Vitals: Vital Signs Temp Pulse Resp BP Pulse Ox 99.7 F H 91 H 18 125/74 95 01/23/18 07:50 12/20/17 09:48 12/20/17 07:50 12/20/17 09:48 12/20/17 07:50 Temperature -Last 24 Hours Temperature 99.7 F Temperature 100.3 F Temperature 97.3 F Temperature 97.6 F Temperature 99.2 F - Labs CBC & Chem 7: 12/20/17 06:00 12/18/17 15:50 Labs: Abnormal lab results 12/18/17 12/19/17 12/20/17 Range/Units 18:21 09:29 06:00 WBC 2.3 L (4.5-11.0) K/mm3 RBC 2.32 L (3.65-5.03) M/mm3 Hgb 6.6 L (11.8-15.2) gm/dl Hct 20.1 L (35.5-45.6) % RDW 15.3 H (13.2-15.2) % Plt Count 85 L (140-440) K/mm3 C-Reactive Protein 9.70 H (0.00-1.30) mg/dL Crossmatch See Detail
[2017-12-20 10:11] LABS: Anisocytosis 2+; Band Neutrophils # (Manual) 0.4 K/mm3; Basophils % (Manual) 0 % (0.0-1.8); Eosinophils % (Manual) 0 % (0.0-4.3); Hypochromasia 1+; Total Cells Counted 100
[2017-12-20 10:12] LABS: Platelet Estimate Consistent w Auto
--- NOTE | 2017-12-20 11:04 | Progress Note ---
Assessment and Plan - Patient Problems (1) End stage kidney disease Current Visit: Yes Status: Acute Plan to address problem: Hemodialysis tomorrow for UF and clearance Fluid restriction of 32 ounces per day Obtain daily weights Monitor I/O's Renally dose medications Assess dialysis needs daily (2) Pancytopenia Current Visit: Yes Status: Acute Plan to address problem: Likely from Cellcept which has been discontinued. On Granix to improve WBC count as per Hematology Anemia- scheduled to receive PRBC's transfusion today (3) HTN (hypertension) Current Visit: Yes Status: Acute Qualifiers: Hypertension type: essential hypertension Qualified Code(s): I10 - Essential (primary) hypertension Plan to address problem: Blood pressures are stable (4) Lupus nephritis Current Visit: Yes Status: Acute Plan to address problem: Cellcept discontinued due to Pancytopenia (5) Lupus Current Visit: Yes Status: Chronic Qualifiers: Lupus erythematosus form: unspecified Qualified Code(s): L93.0 - Discoid lupus erythematosus Plan to address problem: Being followed by [facility] Dr. Bear at [place] Prednisone was decreased to 50 mg po daily by [facility] (6) Hyperthyroidism Current Visit: No Status: Acute Plan to address problem: Tapazole on hold due to Pancytopenia Subjective Date of service: 12/20/17 Principal diagnosis: fever and neutropenia Interval history: Patient is seen lying in bed. States he is doing ok. Objective - Vital Signs Vital signs: Vital Signs - 12hr 12/20/17 12/20/17 12/20/17 07:50 09:45 09:48 Temperature 99.7 F H Pulse Rate 91 H 91 H 91 H Respiratory 18 Rate Blood Pressure 125/74 125/74 125/74 O2 Sat by Pulse 95 Oximetry - General Appearance General appearance: well-developed, appears stated age, fatigue EENT: ATNC, PERRL, hearing intact, vision intact Neck: no JVD, supple Respiratory: Present: Decreased Breath Sounds Cardiology: regular, S1S2 Gastrointestinal: normoactive bowel sounds Integumentary: warm and dry Neurologic: alert and oriented x3 Musculoskeletal: no deformities, no erythema, no cyanosis, no clubbing Psychiatric: cooperative - Lab 12/20/17 06:00 12/18/17 15:50 Most recent lab results Calcium 7.3 mg/dL (8.4-10.2) L 12/18/17 15:50 Phosphorus 5.10 mg/dL (2.5-4.5) H 12/17/17 06:06
--- NOTE | 2017-12-20 11:18 | XRay Report ---
ROUTINE CHEST, TWO VIEWS: HISTORY: Persistent fever, evaluate for pneumonia. Ill-defined air space opacity has developed in the posterior segment of the left lower lobe since 12/15/17. This could represent an infiltrate or layering effusion. The remainder of the lungs are clear. There is borderline heart size with normal pulmonary vascularity. Right IJ dialysis catheter remains in the same position. IMPRESSION: Probable left lower lobe infiltrate.
--- NOTE | 2017-12-20 11:45 | Progress Note ---
Assessment and Plan Assessment and plan: Patient is a 31 yo man with a history of ESRD on hemodialysis, chronic anemia, chronic pain syndrome, SLE with lupus nephritis and hyperthyroidism who presented to the emergency department with low hemoglobin and fatigue. Patient states he sees at [facility] for SLE and his prednisone was decreased, also he admits to missing his dialysis on occasions -Acute on chronic anemia of chronic disease: Status post 2 units of blood: repeat H&H and monitor closely -ESRD: Consult nephrology for hemodialysis -Pancytopenia: consult heme/onc, started on Neupogen -SLE: consulted heme/onc -Hyperthyroisim on tapezole: checked free T4, ok, continue current tapezole dose. 12/17/17: per hem/onc, Dr. Moy: "givens cytopenia secondary to medication. Agents white count is still very low. Granix started Monitor counts. Discussed with patient. Continue to hold CellCept and methimazole." 12/18/17: febrile now, consulted ID, started iv vancomycin and levaquin/flagyl ( allergic to pcn with hives and lip swelling, no hold off on cefepime, await ID consult) 12/19/17: Blood culture sent today after abx started. WBC dropped and now improving 12/20/17: Still febrile, ID is following, I consulted Dr. Luis E Greene to evaluate Perm-a-Cath for infection (he placed on 11/08/17). Anemia still not stable, 1 unit to tranfuse is pending, WBC is improving, am labs ordered 2v CXR reported as probable left lower lobe infiltrate History Interval history: Patient was seen and examined. Follow-up on current diagnosis of fatigue which has improved. Overnight febrile. Patient denies any chest pain, shortness breath, nausea/vomiting or severe headaches. Imaging, nursing note, chart, labs and old chart reviewed. Discussed with patient. Girlfriend at bedside Hospitalist Physical - Physical exam Narrative exam: GEN: WDWN, NAD, AWAKE, ALERT, ORIENTATED 3 HEENT: NCAT, EOMI, PERRL, OP Clear NECK: supple, no adenopathy, no thyromegaly, no JVD CVS/HEART: RRR, NORMAL S1S2, NO JVD, pulses present bilaterally CHEST/LUNGS: CTA B, Symmetrical chest expansion, good air entry bilaterally, right chest wall hemodialysis catheter GI/Abdomen: soft, NTND, good bowel sounds, no guarding or rebound /Bladder: no suprapubic tenderness, no CVA or paraspinal tenderness EXT/Skin: no c/c/e, MSK: FROM x 4 Neuro: CN 2-12 grossly intact, no new focal deficits Psych: calm - Constitutional Vitals: Temp Pulse Resp BP Pulse Ox 99.7 F H 91 H 18 125/74 95 12/20/17 07:50 12/20/17 09:48 12/20/17 07:50 12/20/17 09:48 12/20/17 07:50 General appearance: Absent: mild distress Results - Labs CBC & Chem 7: 12/20/17 06:00 12/18/17 15:50 Labs: Laboratory Last Values WBC 2.3 K/mm3 (4.5-11.0) L 12/20/17 06:00 RBC 2.32 M/mm3 (3.65-5.03) L 12/20/17 06:00 Hgb 6.6 gm/dl (11.8-15.2) L 12/20/17 06:00 Hct 20.1 % (35.5-45.6) L 12/20/17 06:00 MCV 87 fl (84-94) 12/20/17 06:00 MCH 29 pg (28-32) 12/20/17 06:00 MCHC 33 % (32-34) 12/20/17 06:00 RDW 15.3 % (13.2-15.2) H 12/20/17 06:00 Plt Count 85 K/mm3 (140-440) L 12/20/17 06:00 [place] % (Auto) [employer] Consult[employer] Selling 12/18/17 13:09 Add Manual Diff Complete 12/20/17 06:00 Total Counted 100 12/20/17 06:00 Seg Neutrophils % [employer] 12/17/17 06:06 Seg Neuts % (Manual) 68.0 % (40.0-70.0) 12/20/17 06:00 Band Neutrophils % 16.0 % 12/20/17 06:00 Lymphocytes % (Manual) 6.0 % (13.4-35.0) L 12/20/17 06:00 Reactive Lymphs % (Man) 1.0 % 12/20/17 06:00 Monocytes % (Manual) 8.0 % (0.0-7.3) H 12/20/17 06:00 Eosinophils % (Manual) 0 % (0.0-4.3) 12/20/17 06:00 Basophils % (Manual) 0 % (0.0-1.8) 12/20/17 06:00 Metamyelocytes % 1.0 % 12/20/17 06:00 Myelocytes % 0 % 12/20/17 06:00 Promyelocytes % 0 % 12/20/17 06:00 Blast Cells % 0 % 12/20/17 06:00 Nucleated RBC % Not Reportable 12/20/17 06:00 Seg Neutrophils # Man 1.6 K/mm3 (1.8-7.7) L 12/20/17 06:00 Band Neutrophils # 0.4 K/mm3 12/20/17 06:00 Lymphocytes # (Manual) 0.1 K/mm3 (1.2-5.4) L 12/20/17 06:00 Abs React Lymphs (Man) 0.0 K/mm3 12/20/17 06:00 Monocytes # (Manual) 0.2 K/mm3 (0.0-0.8) 12/20/17 06:00 Eosinophils # (Manual) 0.0 K/mm3 (0.0-0.4) 12/20/17 06:00 Basophils # (Manual) 0.0 K/mm3 (0.0-0.1) 12/20/17 06:00 Metamyelocytes # 0.0 K/mm3 12/20/17 06:00 Myelocytes # 0.0 K/mm3 12/20/17 06:00 Promyelocytes # 0.0 K/mm3 12/20/17 06:00 Blast Cells # 0.0 K/mm3 12/20/17 06:00 WBC Morphology Not Reportable 12/20/17 06:00 Hypersegmented Neuts Not Reportable 12/20/17 06:00 Hyposegmented Neuts Not Reportable 12/20/17 06:00 Hypogranular Neuts Not Reportable 12/20/17 06:00 Smudge Cells Not Reportable 12/20/17 06:00 Toxic Granulation Not Reportable 12/20/17 06:00 Toxic Vacuolation Not Reportable 12/20/17 06:00 Dohle Bodies Not Reportable 12/20/17 06:00 Pelger-Huet Anomaly Not Reportable 12/20/17 06:00 Kam Rods Not Reportable 12/20/17 06:00 Platelet Estimate Consistent w auto 12/20/17 06:00 Clumped Platelets Not Reportable 12/20/17 06:00 Plt Clumps, EDTA Not Reportable 12/20/17 06:00 Large Platelets Not Reportable 12/20/17 06:00 Giant Platelets Not Reportable 12/20/17 06:00 Platelet Satelliting Not Reportable 12/20/17 06:00 Plt Morphology Comment Not Reportable 12/20/17 06:00 RBC Morphology Not Reportable 12/20/17 06:00 Dimorphic RBCs Not Reportable 12/20/17 06:00 Polychromasia Not Reportable 12/20/17 06:00 Hypochromasia 1+ 12/20/17 06:00 Poikilocytosis Not Reportable 12/20/17 06:00 Anisocytosis 2+ 12/20/17 06:00 Microcytosis 1+ 12/20/17 06:00 Macrocytosis Not Reportable 12/20/17 06:00 Spherocytes Not Reportable 12/20/17 06:00 Pappenheimer Bodies Not Reportable 12/20/17 06:00 Sickle Cells Not Reportable 12/20/17 06:00 Target Cells Not Reportable 12/20/17 06:00 Tear Drop Cells Not Reportable 12/20/17 06:00 Ovalocytes Not Reportable 12/20/17 06:00 Helmet Cells Not Reportable 12/20/17 06:00 [place] Bodies Not Reportable 12/20/17 06:00 [place] Rings Not Reportable 12/20/17 06:00 [place] Cells Not Reportable 12/20/17 06:00 Bite Cells Not Reportable 12/20/17 06:00 Crenated Cell Not Reportable 12/20/17 06:00 Elliptocytes Not Reportable 12/20/17 06:00 Acanthocytes (Spur) Not Reportable 12/20/17 06:00 Rouleaux Not Reportable 12/20/17 06:00 Hemoglobin C Crystals Not Reportable 12/20/17 06:00 Schistocytes Not Reportable 12/20/17 06:00 Malaria parasites Not Reportable 12/20/17 06:00 Percent Retic 0.85 % (0.78-2.58) 12/17/17 06:06 Nasir Bodies Not Reportable 12/20/17 06:00 Hem Pathologist Commnt No 12/20/17 06:00 PT 13.4 Sec. (12.2-14.9) 12/15/17 14:56 INR 0.97 (0.87-1.13) 12/15/17 14:56 APTT 26.6 Sec. (24.2-36.6) 12/15/17 14:56 Sodium 139 mmol/L (137-145) 12/18/17 15:50 Potassium 4.6 mmol/L (3.6-5.0) 12/18/17 15:50 Chloride 97.4 mmol/L (98-107) L 12/18/17 15:50 Carbon Dioxide 27 mmol/L (22-30) 12/18/17 15:50 Anion Gap 19 mmol/L 12/18/17 15:50 BUN 44 mg/dL (9-20) H 12/18/17 15:50 Creatinine 4.0 mg/dL (0.8-1.5) H 12/18/17 15:50 Estimated GFR 22 ml/min 12/18/17 15:50 BUN/Creatinine Ratio 11 % 12/18/17 15:50 Glucose 114 mg/dL (75-100) H 12/18/17 15:50 Calcium 7.3 mg/dL (8.4-10.2) L 12/18/17 15:50 Phosphorus 5.10 mg/dL (2.5-4.5) H 12/17/17 06:06 Iron 73 ug/dL (49-181) 12/17/17 06:06 TIBC 118 mcg/dL (250-450) L 12/17/17 06:06 Total Bilirubin 0.20 mg/dL (0.1-1.2) 12/17/17 06:06 AST 10 units/L (5-40) 12/17/17 06:06 ALT 13 units/L (7-56) 12/17/17 06:06 Alkaline Phosphatase 42 units/L (35-129) 12/17/17 06:06 Lactate Dehydrogenase 201 units/L (91-180) H 12/17/17 06:06 C-Reactive Protein 9.70 mg/dL (0.00-1.30) H 12/19/17 09:29 Total Protein 5.1 g/dL (6.3-8.2) L 12/17/17 06:06 Albumin 2.5 g/dL (3.9-5) L 12/17/17 06:06 Albumin/Globulin Ratio 1.0 % 12/17/17 06:06 Free T4 0.89 ng/dL (0.76-1.46) 12/16/17 15:32 Urine Color Yellow (Yellow) 12/15/17 20:01 Urine Turbidity Clear (Clear) 12/15/17 20:01 Urine pH 5.0 (5.0-7.0) 12/15/17 20:01 Ur Specific [place] 1.018 (1.003-1.030) 12/15/17 20:01 Urine Protein 100 mg/dl mg/dL (Negative) 12/15/17 20:01 Urine Glucose (UA) Neg mg/dL (Negative) 12/15/17 20:01 Urine Ketones Neg mg/dL (Negative) 12/15/17 20:01 Urine Blood Neg (Negative) 12/15/17 20:01 Urine Nitrite Neg (Negative) 12/15/17 20:01 Urine Bilirubin Neg (Negative) 12/15/17 20:01 Urine Urobilinogen < 2.0 mg/dL (<2.0) 12/15/17 20:01 Ur Leukocyte Esterase Neg (Negative) 12/15/17 20:01 Urine WBC (Auto) 2.0 /HPF (0.0-6.0) 12/15/17 20:01 Urine RBC (Auto) 3.0 /HPF (0.0-6.0) 12/15/17 20:01 U Epithel Cells (Auto) < 1.0 /HPF (0-13.0) 12/15/17 20:01 Urine Bacteria (Auto) 1+ /HPF (Negative) 12/15/17 20:01 Urine Mucus Few /HPF 12/15/17 20:01 Random Vancomycin 29.3 ug/mL (0-40.0) 12/20/17 06:00 Blood Type B POSITIVE 12/18/17 18:21 Antibody Screen Negative 12/18/17 18:21 Crossmatch See Detail 12/18/17 18:21
[2017-12-20] MEDS ORDERED: NACL 0.9% 500 ML 500 ML IV ONE ×2 (12:00→15:00)
[2017-12-20] MEDS: GRANIX SUB-Q SCH (14:37)
[2017-12-20] MEDS: LEVAQUIN 500MG/100ML 500 MG/100 ML BAG IV SCH (14:38)
[2017-12-20] MEDS: BENADRYL PO SCH (22:19)
[2017-12-20] MEDS: TYLENOL PO SCH (22:19)
[2017-12-21] MEDS: CATAPRES PO SCH ×3 (01:39→18:53)
[2017-12-21] MEDS: PERCOCET 5/325 PO PRN ×4 (04:29→21:19)
[2017-12-21] MEDS: FLAGYL PO SCH ×3 (06:26→21:30)
[2017-12-21 08:22] LABS: Hematocrit 24.5 % (35.5-45.6); Hemoglobin 8.1 gm/dl (11.8-15.2); Mean Corpuscular HGB Conc 33 % (32-34); Mean Corpuscular Hemoglobin 28 pg (28-32); Mean Corpuscular Volume 85 fl (84-94); Red Blood Count 2.87 M/mm3 (3.65-5.03); Red Cell Distribution Width 15.2 % (13.2-15.2)
[2017-12-21 08:24] LABS: Platelet Count 82 K/mm3 (140-440)
[2017-12-21 08:42] LABS: Albumin 2.3 g/dL (3.9-5); Calcium 7.9 mg/dL (8.4-10.2)
--- NOTE | 2017-12-21 09:38 | Hem/Onc Progress Note ---
Assessment and Plan Patient received p RBC. He feels better. Counts are slowly improving. Once stable, he can be discharged. He will have to follow-up with [facility] to adjust his medications. Continue Neupogen for now. Follow CBCs Subjective Date of service: 12/21/17 Interval history: Patient feels fair. Denies any fevers. Denies any cough. Denies any diarrhea. Objective - Constitutional Vitals: Last Vital Signs Temp 99.2 F 12/21/17 08:15 Pulse 74 12/21/17 08:15 Resp 18 12/21/17 08:15 BP 142/91 12/21/17 08:15 Pulse Ox 97 12/21/17 08:15 Pain Intensity (0-10): denies any pain Performance status: 1-light work, ambulatory - Neck Neck: supple - Respiratory Respiratory effort: Positive: normal Respiratory: bilateral: CTA - Cardiovascular Rhythm: regular Extremities: No edema - Gastrointestinal General gastrointestinal: Present: soft - Labs Lab Results: Laboratory Results - last 24 hr 12/15/17 12/18/17 12/20/17 14:56 18:21 06:00 WBC RBC Hgb Hct MCV MCH MCHC RDW Plt Count Add Manual Diff Complete Total Counted 100 Seg Neuts % (Manual) 68.0 Band Neutrophils % 16.0 Lymphocytes % (Manual) 6.0 L Reactive Lymphs % (Man) 1.0 Monocytes % (Manual) 8.0 H Eosinophils % (Manual) 0 Basophils % (Manual) 0 Metamyelocytes % 1.0 Myelocytes % 0 Promyelocytes % 0 Blast Cells % 0 Nucleated RBC % Not Reportable Seg Neutrophils # Man 1.6 L Band Neutrophils # 0.4 Lymphocytes # (Manual) 0.1 L Abs React Lymphs (Man) 0.0 Monocytes # (Manual) 0.2 Eosinophils # (Manual) 0.0 Basophils # (Manual) 0.0 Metamyelocytes # 0.0 Myelocytes # 0.0 Promyelocytes # 0.0 Blast Cells # 0.0 WBC Morphology Not Reportable Hypersegmented Neuts Not Reportable Hyposegmented Neuts Not Reportable Hypogranular Neuts Not Reportable Smudge Cells Not Reportable Toxic Granulation Not Reportable Toxic Vacuolation Not Reportable Dohle Bodies Not Reportable Pelger-Huet Anomaly Not Reportable Kam Rods Not Reportable Platelet Estimate Consistent w auto Clumped Platelets Not Reportable Plt Clumps, EDTA Not Reportable Large Platelets Not Reportable Giant Platelets Not Reportable Platelet Satelliting Not Reportable Plt Morphology Comment Not Reportable RBC Morphology Not Reportable Dimorphic RBCs Not Reportable Polychromasia Not Reportable Hypochromasia 1+ Poikilocytosis Not Reportable Anisocytosis 2+ Microcytosis 1+ Macrocytosis Not Reportable Spherocytes Not Reportable Pappenheimer Bodies Not Reportable Sickle Cells Not Reportable Target Cells Not Reportable Tear Drop Cells Not Reportable Ovalocytes Not Reportable Helmet Cells Not Reportable [place] Bodies Not Reportable [place] Rings Not Reportable [place] Cells Not Reportable Bite Cells Not Reportable Crenated Cell Not Reportable Elliptocytes Not Reportable Acanthocytes (Spur) Not Reportable Rouleaux Not Reportable Hemoglobin C Crystals Not Reportable Schistocytes Not Reportable Malaria parasites Not Reportable Percent Retic Nasir Bodies Not Reportable Hem Pathologist Commnt No Sodium Potassium Chloride Carbon Dioxide Anion Gap BUN Creatinine Estimated GFR BUN/Creatinine Ratio Glucose Calcium Total Bilirubin AST ALT Alkaline Phosphatase Total Protein Albumin Albumin/Globulin Ratio Blood Type B POSITIVE Antibody Screen Negative Crossmatch See Detail See Detail 12/21/17 12/21/17 07:56 07:56 WBC 2.8 L RBC 2.87 L Hgb 8.1 L Hct 24.5 L MCV 85 MCH 28 MCHC 33 RDW 15.2 Plt Count 82 L Add Manual Diff Total Counted Seg Neuts % (Manual) Band Neutrophils % Lymphocytes % (Manual) Reactive Lymphs % (Man) Monocytes % (Manual) Eosinophils % (Manual) Basophils % (Manual) Metamyelocytes % Myelocytes % Promyelocytes % Blast Cells % Nucleated RBC % Seg Neutrophils # Man Band Neutrophils # Lymphocytes # (Manual) Abs React Lymphs (Man) Monocytes # (Manual) Eosinophils # (Manual) Basophils # (Manual) Metamyelocytes # Myelocytes # Promyelocytes # Blast Cells # WBC Morphology Hypersegmented Neuts Hyposegmented Neuts Hypogranular Neuts Smudge Cells Toxic Granulation Toxic Vacuolation Dohle Bodies Pelger-Huet Anomaly Kam Rods Platelet Estimate Clumped Platelets Plt Clumps, EDTA Large Platelets Giant Platelets Platelet Satelliting Plt Morphology Comment RBC Morphology Dimorphic RBCs Polychromasia Hypochromasia Poikilocytosis Anisocytosis Microcytosis Macrocytosis Spherocytes Pappenheimer Bodies Sickle Cells Target Cells Tear Drop Cells Ovalocytes Helmet Cells [place] Bodies [place] Rings [place] Cells Bite Cells Crenated Cell Elliptocytes Acanthocytes (Spur) Rouleaux Hemoglobin C Crystals Schistocytes Malaria parasites Percent Retic 0.71 L Nasir Bodies Hem Pathologist Commnt Sodium 140 Potassium 4.0 Chloride 99.7 Carbon Dioxide 26 Anion Gap 18 BUN 59 H Creatinine 5.0 H Estimated GFR 17 BUN/Creatinine Ratio 12 Glucose 90 Calcium 7.9 L Total Bilirubin 0.30 AST 17 ALT 17 Alkaline Phosphatase 51 Total Protein 4.9 L Albumin 2.3 L Albumin/Globulin Ratio 0.9 Blood Type Antibody Screen Crossmatch
[2017-12-21] MEDS: PLAQUENIL PO SCH (10:09)
[2017-12-21] MEDS: DELTASONE PO SCH (10:09)
[2017-12-21] MEDS: RENVELA PO SCH ×3 (10:09→18:53)
[2017-12-21] MEDS: ROCALTROL PO SCH (10:10)
[2017-12-21] MEDS: THERAGRAN Tab PO SCH (10:10)
[2017-12-21] MEDS: TAMIFLU PO SCH (10:10)
[2017-12-21] MEDS: NORMODYNE PO SCH ×2 (10:13→21:28)
[2017-12-21 10:48] LABS: Band Neutrophils # (Manual) 0.2 K/mm3; Basophils % (Manual) 0 % (0.0-1.8); Eosinophils % (Manual) 0 % (0.0-4.3); Platelet Estimate Consistent w Auto; RBC Morphology Normal; Total Cells Counted 100
--- NOTE | 2017-12-21 11:29 | Progress Note ---
Assessment and Plan - Patient Problems (1) End stage kidney disease Current Visit: Yes Status: Acute Plan to address problem: Hemodialysis today for UF and clearance Fluid restriction of 32 ounces per day Obtain daily weights Monitor I/O's Renally dose medications Assess dialysis needs daily (2) Pancytopenia Current Visit: Yes Status: Acute Plan to address problem: Likely from Cellcept which has been discontinued. On Granix to improve WBC count as per Hematology Anemia- S/P PRBC's transfusion (3) HTN (hypertension) Current Visit: Yes Status: Acute Qualifiers: Hypertension type: essential hypertension Qualified Code(s): I10 - Essential (primary) hypertension Plan to address problem: Blood pressures are stable (4) Lupus nephritis Current Visit: Yes Status: Acute Plan to address problem: Cellcept discontinued due to Pancytopenia (5) Lupus Current Visit: Yes Status: Chronic Qualifiers: Lupus erythematosus form: unspecified Qualified Code(s): L93.0 - Discoid lupus erythematosus Plan to address problem: Being followed by [facility] Dr. Bear at [place] Prednisone was decreased to 50 mg po daily by [facility] (6) Hyperthyroidism Current Visit: No Status: Acute Plan to address problem: Tapazole on hold due to Pancytopenia Subjective Date of service: 12/21/17 Principal diagnosis: fever and neutropenia Interval history: Patient is seen lying in bed. No complaints voiced. Objective - Vital Signs Vital signs: Vital Signs - 12hr 12/21/17 08:15 Temperature 99.2 F Pulse Rate 74 Respiratory 18 Rate Blood Pressure 142/91 O2 Sat by Pulse 97 Oximetry - General Appearance General appearance: well-developed, appears stated age EENT: ATNC, PERRL, hearing intact, vision intact Neck: no JVD, supple Respiratory: Present: Clear to Ascultation Cardiology: regular, S1S2 Gastrointestinal: normoactive bowel sounds Integumentary: warm and dry Neurologic: alert and oriented x3 Musculoskeletal: no deformities, no erythema, no cyanosis, no clubbing Psychiatric: cooperative - Lab 12/21/17 07:56 12/21/17 07:56 Most recent lab results Calcium 7.9 mg/dL (8.4-10.2) L 12/21/17 07:56 Phosphorus 5.10 mg/dL (2.5-4.5) H 12/17/17 06:06
--- NOTE | 2017-12-21 13:17 | Progress Note ---
Assessment and Plan Assessment and plan: Patient is a 31 yo man with a history of ESRD on hemodialysis, chronic anemia, chronic pain syndrome, SLE with lupus nephritis and hyperthyroidism who presented to the emergency department with low hemoglobin and fatigue. Patient states he sees at [facility] for [facility] and his prednisone was decreased, also he admits to missing his dialysis on occasions -Acute on chronic anemia of chronic disease: Status post 2 units of blood: repeat H&H and monitor closely -ESRD: Consult nephrology for hemodialysis -Pancytopenia: consult heme/onc, started on Neupogen -SLE: consulted heme/onc -Hyperthyroisim on tapezole: checked free T4, ok, continue current tapezole dose. 12/17/17: per hem/onc, Dr. Moy: "givens cytopenia secondary to medication. Agents white count is still very low. Granix started Monitor counts. Discussed with patient. Continue to hold CellCept and methimazole." 12/18/17: febrile now, consulted ID, started iv vancomycin and levaquin/flagyl ( allergic to pcn with hives and lip swelling, no hold off on cefepime, await ID consult) 12/19/17: Blood culture sent today after abx started. WBC dropped and now improving 12/20/17: Still febrile, ID is following, I consulted Dr. Luis E Greene to evaluate Perm-a-Cath for infection (he placed on 11/08/17). Anemia still not stable, 1 unit to tranfuse is pending, WBC is improving, am labs ordered 2v CXR reported as probable left lower lobe infiltrate 12/21/17: AFebrile, just waiting for WBC to be stable and cleared by Dr. Moy, follow cbc daily History Interval history: Patient was seen and examined. Follow-up on current diagnosis of fatigue which has improved. Overnight febrile. Patient denies any chest pain, shortness breath, nausea/vomiting or severe headaches. Imaging, nursing note, chart, labs and old chart reviewed. Discussed with patient. Girlfriend at bedside Hospitalist Physical - Physical exam Narrative exam: GEN: WDWN, NAD, AWAKE, ALERT, ORIENTATED 3 HEENT: NCAT, EOMI, PERRL, OP Clear NECK: supple, no adenopathy, no thyromegaly, no JVD CVS/HEART: RRR, NORMAL S1S2, NO JVD, pulses present bilaterally CHEST/LUNGS: CTA B, Symmetrical chest expansion, good air entry bilaterally, right chest wall hemodialysis catheter GI/Abdomen: soft, NTND, good bowel sounds, no guarding or rebound /Bladder: no suprapubic tenderness, no CVA or paraspinal tenderness EXT/Skin: no c/c/e, MSK: FROM x 4 Neuro: CN 2-12 grossly intact, no new focal deficits Psych: calm - Constitutional Vitals: Temp Pulse Resp BP Pulse Ox 99.2 F 74 18 142/91 97 12/21/17 08:15 12/21/17 08:15 12/21/17 08:15 12/21/17 08:15 12/21/17 08:15 General appearance: Absent: mild distress Results - Labs CBC & Chem 7: 12/21/17 07:56 12/21/17 07:56 Labs: Laboratory Last Values WBC 2.8 K/mm3 (4.5-11.0) L 12/21/17 07:56 RBC 2.87 M/mm3 (3.65-5.03) L 12/21/17 07:56 Hgb 8.1 gm/dl (11.8-15.2) L 12/21/17 07:56 Hct 24.5 % (35.5-45.6) L 12/21/17 07:56 MCV 85 fl (84-94) 12/21/17 07:56 MCH 28 pg (28-32) 12/21/17 07:56 MCHC 33 % (32-34) 12/21/17 07:56 RDW 15.2 % (13.2-15.2) 12/21/17 07:56 Plt Count 82 K/mm3 (140-440) L 12/21/17 07:56 Nance % (Auto) Slasher Operator 12/18/17 13:09 Add Manual Diff Complete 12/21/17 07:56 Total Counted 100 12/21/17 07:56 Seg Neutrophils % Slasher Operator 12/17/17 06:06 Seg Neuts % (Manual) 82.0 % (40.0-70.0) H 12/21/17 07:56 Band Neutrophils % 8.0 % 12/21/17 07:56 Lymphocytes % (Manual) 6.0 % (13.4-35.0) L 12/21/17 07:56 Reactive Lymphs % (Man) 0 % 12/21/17 07:56 Monocytes % (Manual) 4.0 % (0.0-7.3) 12/21/17 07:56 Eosinophils % (Manual) 0 % (0.0-4.3) 12/21/17 07:56 Basophils % (Manual) 0 % (0.0-1.8) 12/21/17 07:56 Metamyelocytes % 0 % 12/21/17 07:56 Myelocytes % 0 % 12/21/17 07:56 Promyelocytes % 0 % 12/21/17 07:56 Blast Cells % 0 % 12/21/17 07:56 Nucleated RBC % Not Reportable 12/21/17 07:56 Seg Neutrophils # Man 2.3 K/mm3 (1.8-7.7) 12/21/17 07:56 Band Neutrophils # 0.2 K/mm3 12/21/17 07:56 Lymphocytes # (Manual) 0.2 K/mm3 (1.2-5.4) L 12/21/17 07:56 Abs React Lymphs (Man) 0.0 K/mm3 12/21/17 07:56 Monocytes # (Manual) 0.1 K/mm3 (0.0-0.8) 12/21/17 07:56 Eosinophils # (Manual) 0.0 K/mm3 (0.0-0.4) 12/21/17 07:56 Basophils # (Manual) 0.0 K/mm3 (0.0-0.1) 12/21/17 07:56 Metamyelocytes # 0.0 K/mm3 12/21/17 07:56 Myelocytes # 0.0 K/mm3 12/21/17 07:56 Promyelocytes # 0.0 K/mm3 12/21/17 07:56 Blast Cells # 0.0 K/mm3 12/21/17 07:56 WBC Morphology Not Reportable 12/21/17 07:56 Hypersegmented Neuts Not Reportable 12/21/17 07:56 Hyposegmented Neuts Not Reportable 12/21/17 07:56 Hypogranular Neuts Not Reportable 12/21/17 07:56 Smudge Cells Not Reportable 12/21/17 07:56 Toxic Granulation Not Reportable 12/21/17 07:56 Toxic Vacuolation Not Reportable 12/21/17 07:56 Dohle Bodies Not Reportable 12/21/17 07:56 Pelger-Huet Anomaly Not Reportable 12/21/17 07:56 Kam Rods Not Reportable 12/21/17 07:56 Platelet Estimate Consistent w auto 12/21/17 07:56 Clumped Platelets Not Reportable 12/21/17 07:56 Plt Clumps, EDTA Not Reportable 12/21/17 07:56 Large Platelets Not Reportable 12/21/17 07:56 Giant Platelets Not Reportable 12/21/17 07:56 Platelet Satelliting Not Reportable 12/21/17 07:56 Plt Morphology Comment Not Reportable 12/21/17 07:56 RBC Morphology Normal 12/21/17 07:56 Dimorphic RBCs Not Reportable 12/21/17 07:56 Polychromasia Not Reportable 12/21/17 07:56 Hypochromasia Not Reportable 12/21/17 07:56 Poikilocytosis Not Reportable 12/21/17 07:56 Anisocytosis Not Reportable 12/21/17 07:56 Microcytosis Not Reportable 12/21/17 07:56 Macrocytosis Not Reportable 12/21/17 07:56 Spherocytes Not Reportable 12/21/17 07:56 Pappenheimer Bodies Not Reportable 12/21/17 07:56 Sickle Cells Not Reportable 12/21/17 07:56 Target Cells Not Reportable 12/21/17 07:56 Tear Drop Cells Not Reportable 12/21/17 07:56 Ovalocytes Not Reportable 12/21/17 07:56 Helmet Cells Not Reportable 12/21/17 07:56 Stanley-[place] Bodies Not Reportable 12/21/17 07:56 [place] Rings Not Reportable 12/21/17 07:56 [place] Cells Not Reportable 12/21/17 07:56 Bite Cells Not Reportable 12/21/17 07:56 Crenated Cell Not Reportable 12/21/17 07:56 Elliptocytes Not Reportable 12/21/17 07:56 Acanthocytes (Spur) Not Reportable 12/21/17 07:56 Rouleaux Not Reportable 12/21/17 07:56 Hemoglobin C Crystals Not Reportable 12/21/17 07:56 Schistocytes Not Reportable 12/21/17 07:56 Malaria parasites Not Reportable 12/21/17 07:56 Percent Retic 0.71 % (0.78-2.58) L 12/21/17 07:56 Nasir Bodies Not Reportable 12/21/17 07:56 Hem Pathologist Commnt No 12/21/17 07:56 PT 13.4 Sec. (12.2-14.9) 12/15/17 14:56 INR 0.97 (0.87-1.13) 12/15/17 14:56 APTT 26.6 Sec. (24.2-36.6) 12/15/17 14:56 Sodium 140 mmol/L (137-145) 12/21/17 07:56 Potassium 4.0 mmol/L (3.6-5.0) 12/21/17 07:56 Chloride 99.7 mmol/L (98-107) 12/21/17 07:56 Carbon Dioxide 26 mmol/L (22-30) 12/21/17 07:56 Anion Gap 18 mmol/L 12/21/17 07:56 BUN 59 mg/dL (9-20) H 12/21/17 07:56 Creatinine 5.0 mg/dL (0.8-1.5) H 12/21/17 07:56 Estimated GFR 17 ml/min 12/21/17 07:56 BUN/Creatinine Ratio 12 % 12/21/17 07:56 Glucose 90 mg/dL (75-100) 12/21/17 07:56 Calcium 7.9 mg/dL (8.4-10.2) L 12/21/17 07:56 Phosphorus 5.10 mg/dL (2.5-4.5) H 12/17/17 06:06 Iron 73 ug/dL (49-181) 12/17/17 06:06 TIBC 118 mcg/dL (250-450) L 12/17/17 06:06 Total Bilirubin 0.30 mg/dL (0.1-1.2) 12/21/17 07:56 AST 17 units/L (5-40) 12/21/17 07:56 ALT 17 units/L (7-56) 12/21/17 07:56 Alkaline Phosphatase 51 units/L (35-129) 12/21/17 07:56 Lactate Dehydrogenase 201 units/L (91-180) H 12/17/17 06:06 C-Reactive Protein 9.70 mg/dL (0.00-1.30) H 12/19/17 09:29 Total Protein 4.9 g/dL (6.3-8.2) L 12/21/17 07:56 Albumin 2.3 g/dL (3.9-5) L 12/21/17 07:56 Albumin/Globulin Ratio 0.9 % 12/21/17 07:56 Free T4 0.89 ng/dL (0.76-1.46) 12/16/17 15:32 Urine Color Yellow (Yellow) 12/15/17 20:01 Urine Turbidity Clear (Clear) 12/15/17 20:01 Urine pH 5.0 (5.0-7.0) 12/15/17 20:01 Ur Specific [place] 1.018 (1.003-1.030) 12/15/17 20:01 Urine Protein 100 mg/dl mg/dL (Negative) 12/15/17 20:01 Urine Glucose (UA) Neg mg/dL (Negative) 12/15/17 20:01 Urine Ketones Neg mg/dL (Negative) 12/15/17 20:01 Urine Blood Neg (Negative) 12/15/17 20:01 Urine Nitrite Neg (Negative) 12/15/17 20:01 Urine Bilirubin Neg (Negative) 12/15/17 20:01 Urine Urobilinogen < 2.0 mg/dL (<2.0) 12/15/17 20:01 Ur Leukocyte Esterase Neg (Negative) 12/15/17 20:01 Urine WBC (Auto) 2.0 /HPF (0.0-6.0) 12/15/17 20:01 Urine RBC (Auto) 3.0 /HPF (0.0-6.0) 12/15/17 20:01 U Epithel Cells (Auto) < 1.0 /HPF (0-13.0) 12/15/17 20:01 Urine Bacteria (Auto) 1+ /HPF (Negative) 12/15/17 20:01 Urine Mucus Few /HPF 12/15/17 20:01 Random Vancomycin 29.3 ug/mL (0-40.0) 12/20/17 06:00 Blood Type B POSITIVE 12/18/17 18:21 Antibody Screen Negative 12/18/17 18:21 Crossmatch See Detail 12/18/17 18:21
[2017-12-21] MEDS: GRANIX SUB-Q SCH (14:55)
[2017-12-21] MEDS: NORVASC PO SCH (16:57)
--- NOTE | 2017-12-21 20:36 | Progress Note ---
Assessment and Plan Assessment: 1) Sepsis with severe neutropenia (?neutropenic fever): improving. Etiology ? pneumonia. CRP=9.7 2) Severe pancytopenia: likely from meds - CellCept / methimazole, already stopped, better on neupogen 3) ESRD - kidney biopsy + Class III lupus started on high dose solumedrol and CellCept via permacath for HD. 4) Recent Enterobacter UTI treated with levaquin total 7 days from 11/04-11/10 ( penicillin allergy). 5) Hyperthiroidism - he was on methimazole 6) Lupus with lupus nephritis 7) Penicillin allergy 8) LLL pneumonia: repeat CXR +LLL infiltrate Plan: -f/u C3/C4 -continue levaquin and vanco renally dosed day 4 of 5 -continue tamiflu day 4 of 5 -upon discharge will do levaquin 750 mg po q48h total 7 days I am signing off Thank you Dr Hernandez for your consultation, will follow up with you. Kat Vallecillo MD Infectious Diseases Specialist [facility] [phone] Subjective Date of service: 12/21/17 Principal diagnosis: fever and neutropenia Interval history: Feels better no complaints fever resolved Microbiology: blood culture 10/19 ngtd Current Antimicrobials: Levaquin 12/20 flagyl 12/18 Vancomycin 12/18 Previous Antimicrobials: Cefepime Objective - Exam Narrative Exam: General appearance: Alert in NAD, conversant Eyes: anicteric sclerae, moist conjunctivae; no lid-lag; PERRLA HENT: Atraumatic; oropharynx clear Neck: Trachea midline; supple, no thyromegaly or lymphadenopathy Lungs: CTA CV: RRR, no murmurs Abdomen: Soft, non-tender; no masses or hepatosplenomegaly Extremities: No peripheral edema or extremity lymphadenopathy Skin: Normal temperature, turgor and texture; no rash, ulcers or subcutaneous nodules Psych: Appropriate affect, alert and oriented to person, place and time. Neuro: alert and oriented x 3. Moving all extermities Lines: right SC HD perm cath - Constitutional Vitals: Vital Signs Temp Pulse Resp BP Pulse Ox 98.3 F 78 18 123/76 97 12/21/17 20:15 12/21/17 20:15 12/21/17 20:15 12/21/17 20:15 12/21/17 15:40 Temperature -Last 24 Hours Temperature 98.3 F Temperature 99.7 F Temperature 99.7 F Temperature 99.2 F Temperature 99.1 F Temperature 99.1 F - Labs CBC & Chem 7: 12/21/17 07:56 12/21/17 07:56 Labs: Abnormal lab results 12/18/17 12/21/17 12/21/17 Range/Units 18:21 07:56 07:56 WBC 2.8 L (4.5-11.0) K/mm3 RBC 2.87 L (3.65-5.03) M/mm3 Hgb 8.1 L (11.8-15.2) gm/dl Hct 24.5 L (35.5-45.6) % Plt Count 82 L (140-440) K/mm3 Seg Neuts % (Manual) 82.0 H (40.0-70.0) % Lymphocytes % (Manual) 6.0 L (13.4-35.0) % Lymphocytes # (Manual) 0.2 L (1.2-5.4) K/mm3 Percent Retic 0.71 L (0.78-2.58) % BUN 59 H (9-20) mg/dL Creatinine 5.0 H (0.8-1.5) mg/dL Calcium 7.9 L (8.4-10.2) mg/dL Total Protein 4.9 L (6.3-8.2) g/dL Albumin 2.3 L (3.9-5) g/dL Crossmatch See Detail
[2017-12-21] MEDS: BENADRYL PO SCH (21:30)
[2017-12-21] MEDS: TYLENOL PO SCH (21:31)
[2017-12-22] MEDS: CATAPRES PO SCH ×3 (02:12→16:34)
[2017-12-22] MEDS: PERCOCET 5/325 PO PRN ×3 (03:31→16:28)
[2017-12-22] MEDS: FLAGYL PO SCH ×2 (06:08→16:28)
[2017-12-22 06:26] LABS: Hematocrit 23.7 % (35.5-45.6); Hemoglobin 8.1 gm/dl (11.8-15.2); Mean Corpuscular HGB Conc 34 % (32-34); Mean Corpuscular Hemoglobin 30 pg (28-32); Mean Corpuscular Volume 87 fl (84-94); Red Blood Count 2.73 M/mm3 (3.65-5.03); Red Cell Distribution Width 15.5 % (13.2-15.2)
[2017-12-22 06:40] LABS: Platelet Count 75 K/mm3 (140-440)
[2017-12-22] MEDS: RENVELA PO SCH ×3 (08:51→16:33)
[2017-12-22 09:50] LABS: Band Neutrophils # (Manual) 0.4 K/mm3; Basophils % (Manual) 0 % (0.0-1.8); Eosinophils % (Manual) 0 % (0.0-4.3); Total Cells Counted 100
[2017-12-22 09:51] LABS: Anisocytosis Few
--- NOTE | 2017-12-22 10:11 | Progress Note ---
Assessment and Plan - Patient Problems (1) Pancytopenia Current Visit: Yes Status: Acute Plan to address problem: Started on Granix, cellcept discontinued Epogen dosing during HD for anemia management As per Hem/Onc and primary team (2) End stage kidney disease Current Visit: Yes Status: Acute Plan to address problem: Status post HD yesterday for UF and clearance No acute indication for HD today Hemodialysis tomorrow for UF and clearance Assess need for HD on daily basis Renally dose medications Obtain daily weight Strict intake and output Renal plan discussed with Dr Cano Continue supportive therapy (3) Lupus nephritis Current Visit: Yes Status: Acute Plan to address problem: On Prednisone 50 mg orally once a day, cellcept discontinued in setting of pancytopenia Followed by [employer] Super[employer] Dr Bear at [facility] for Lupus (4) Pneumonia Current Visit: Yes Status: Acute Plan to address problem: S/p Chest X Ray on 12/20/17 showed probable left lower lobe infiltrate Possible Pneumonia Infectious Disease evaluated patient, on levaquin and vancomycin, upon discharge will need levaquin 750 mg orally every 48 hours for total of 7 days, signed off (5) HTN (hypertension) Current Visit: Yes Status: Acute Qualifiers: Hypertension type: essential hypertension Qualified Code(s): I10 - Essential (primary) hypertension Plan to address problem: Blood pressure stable on current regimen (6) Hyperthyroidism Current Visit: No Status: Acute Plan to address problem: As per primary team Subjective Date of service: 12/22/17 Principal diagnosis: fever and neutropenia Interval history: Patient reports feeling ok at this time, no acute distress. No family at bedside. Objective - Vital Signs Vital signs: Vital Signs - 12hr 12/21/17 12/22/17 22:18 08:09 Temperature 98.6 F 98.2 F Pulse Rate 85 96 H Respiratory 18 18 Rate Blood Pressure 120/78 138/84 O2 Sat by Pulse 100 94 Oximetry - General Appearance General appearance: well-developed (no acute distress) EENT: ATNC Neck: no JVD Respiratory: Present: Other (Lung sounds decreased bilaterally, unlabored) Cardiology: regular, S1S2, other (ACCESS: Right Perm Catheter intact) Gastrointestinal: normoactive bowel sounds, no tenderness Integumentary: warm and dry Neurologic: alert and oriented x3 Musculoskeletal: other (no edema to both lower extremities) Psychiatric: mood/affect appropriate, cooperative - Lab 12/22/17 05:18 12/21/17 07:56 Most recent lab results Calcium 7.9 mg/dL (8.4-10.2) L 12/21/17 07:56 Phosphorus 5.10 mg/dL (2.5-4.5) H 12/17/17 06:06
--- NOTE | 2017-12-22 10:14 | Hem/Onc Progress Note ---
Assessment and Plan Counts are better. He needs outpatient follow up. Subjective Date of service: 12/22/17 Interval history: Counts are better. He feels well. Objective - Constitutional Vitals: Last Vital Signs Temp 98.2 F 12/22/17 08:09 Pulse 96 H 12/22/17 08:09 Resp 18 12/22/17 08:09 BP 138/84 12/22/17 08:09 Pulse Ox 94 12/22/17 08:09 - EENT Eyes: PERRL ENT: hearing intact Lymph node exam: negative cervical - Neck Neck: supple - Respiratory Respiratory effort: Positive: normal - Cardiovascular Rhythm: regular - Labs Lab Results: Laboratory Results - last 24 hr 12/20/17 12/20/17 12/21/17 06:00 06:00 07:56 WBC RBC Hgb Hct MCV MCH MCHC RDW Plt Count Add Manual Diff Complete Total Counted 100 Seg Neuts % (Manual) 82.0 H Band Neutrophils % 8.0 Lymphocytes % (Manual) 6.0 L Reactive Lymphs % (Man) 0 Monocytes % (Manual) 4.0 Eosinophils % (Manual) 0 Basophils % (Manual) 0 Metamyelocytes % 0 Myelocytes % 0 Promyelocytes % 0 Blast Cells % 0 Nucleated RBC % Not Reportable Seg Neutrophils # Man 2.3 Band Neutrophils # 0.2 Lymphocytes # (Manual) 0.2 L Abs React Lymphs (Man) 0.0 Monocytes # (Manual) 0.1 Eosinophils # (Manual) 0.0 Basophils # (Manual) 0.0 Metamyelocytes # 0.0 Myelocytes # 0.0 Promyelocytes # 0.0 Blast Cells # 0.0 WBC Morphology Not Reportable Hypersegmented Neuts Not Reportable Hyposegmented Neuts Not Reportable Hypogranular Neuts Not Reportable Smudge Cells Not Reportable Toxic Granulation Not Reportable Toxic Vacuolation Not Reportable Dohle Bodies Not Reportable Pelger-Huet Anomaly Not Reportable Kam Rods Not Reportable Platelet Estimate Consistent w auto Clumped Platelets Not Reportable Plt Clumps, EDTA Not Reportable Large Platelets Not Reportable Giant Platelets Not Reportable Platelet Satelliting Not Reportable Plt Morphology Comment Not Reportable RBC Morphology Normal Dimorphic RBCs Not Reportable Polychromasia Not Reportable Hypochromasia Not Reportable Poikilocytosis Not Reportable Anisocytosis Not Reportable Microcytosis Not Reportable Macrocytosis Not Reportable Spherocytes Not Reportable Pappenheimer Bodies Not Reportable Sickle Cells Not Reportable Target Cells Not Reportable Tear Drop Cells Not Reportable Ovalocytes Not Reportable Helmet Cells Not Reportable [place] Bodies Not Reportable [place] Rings Not Reportable [place] Cells Not Reportable Bite Cells Not Reportable Crenated Cell Not Reportable Elliptocytes Not Reportable Acanthocytes (Spur) Not Reportable Rouleaux Not Reportable Hemoglobin C Crystals Not Reportable Schistocytes Not Reportable Malaria parasites Not Reportable Nasir Bodies Not Reportable Hem Pathologist Commnt No Complement C3 106 Complement C4 29 12/22/17 05:18 WBC 3.0 L RBC 2.73 L Hgb 8.1 L Hct 23.7 L MCV 87 MCH 30 MCHC 34 RDW 15.5 H Plt Count 75 L Add Manual Diff Complete Total Counted 100 Seg Neuts % (Manual) 63.0 Band Neutrophils % 12.0 Lymphocytes % (Manual) 13.0 L Reactive Lymphs % (Man) 0 Monocytes % (Manual) 12.0 H Eosinophils % (Manual) 0 Basophils % (Manual) 0 Metamyelocytes % 0 Myelocytes % 0 Promyelocytes % 0 Blast Cells % 0 Nucleated RBC % Not Reportable Seg Neutrophils # Man 1.9 Band Neutrophils # 0.4 Lymphocytes # (Manual) 0.4 L Abs React Lymphs (Man) 0.0 Monocytes # (Manual) 0.4 Eosinophils # (Manual) 0.0 Basophils # (Manual) 0.0 Metamyelocytes # 0.0 Myelocytes # 0.0 Promyelocytes # 0.0 Blast Cells # 0.0 WBC Morphology Not Reportable Hypersegmented Neuts Not Reportable Hyposegmented Neuts Not Reportable Hypogranular Neuts Not Reportable Smudge Cells Not Reportable Toxic Granulation Not Reportable Toxic Vacuolation Not Reportable Dohle Bodies Not Reportable Pelger-Huet Anomaly Not Reportable Kam Rods Not Reportable Platelet Estimate Not Reportable Clumped Platelets Not Reportable Plt Clumps, EDTA Not Reportable Large Platelets Not Reportable Giant Platelets Not Reportable Platelet Satelliting Not Reportable Plt Morphology Comment Not Reportable RBC Morphology Not Reportable Dimorphic RBCs Not Reportable Polychromasia Not Reportable Hypochromasia Not Reportable Poikilocytosis Not Reportable Anisocytosis Few Microcytosis Not Reportable Macrocytosis Not Reportable Spherocytes Not Reportable Pappenheimer Bodies Not Reportable Sickle Cells Not Reportable Target Cells Not Reportable Tear Drop Cells Not Reportable Ovalocytes Not Reportable Helmet Cells Not Reportable [place] Bodies Not Reportable [place] Rings Not Reportable [place] Cells Not Reportable Bite Cells Not Reportable Crenated Cell Not Reportable Elliptocytes Not Reportable Acanthocytes (Spur) Not Reportable Rouleaux Not Reportable Hemoglobin C Crystals Not Reportable Schistocytes Not Reportable Malaria parasites Not Reportable Nasir Bodies Not Reportable Hem Pathologist Commnt No Complement C3 Complement C4
[2017-12-22] MEDS: DELTASONE PO SCH (11:48)
[2017-12-22] MEDS: NORVASC PO SCH (11:49)
[2017-12-22] MEDS: NORMODYNE PO SCH (11:50)
[2017-12-22] MEDS: THERAGRAN Tab PO SCH (11:52)
[2017-12-22] MEDS: PLAQUENIL PO SCH (11:52)
[2017-12-22] MEDS: ROCALTROL PO SCH (11:52)
[2017-12-22] MEDS: LEVAQUIN 500MG/100ML 500 MG/100 ML BAG IV SCH (11:55)
[2017-12-22] MEDS: GRANIX SUB-Q SCH (12:24)
--- NOTE | 2017-12-22 14:52 | Discharge Summary ---
Providers - Providers Date of Admission: 12/15/17 16:49 Date of discharge: 12/22/17 Attending physician: CONNOR GREGORY 12/15/17 17:56 Consult to Physician [CONS] Routine Consulting Provider: ANN JEREZ Reason For Exam: esrd Place consult to:: Notified:: Time called:: 10:16 12/15/17 18:00 Consult to Physician [CONS] Routine Consulting Provider: EFRAÍN CAMPBELL Reason For Exam: pancytopenia Place consult to:: dr. campbell Notified:: office Phone number called:: Was contact made?: Yes If yes, spoke with:: derrick Time called:: 12:45 12/17/17 15:15 Consult to Dietitian/Nutrition [CONS] Routine Physician Instructions: Reason For Exam: Reason for Consult: Malnutrition 12/18/17 09:25 Consult to Physician [CONS] Routine Consulting Provider: ANAYA DARDEN Reason For Exam: neutropenic fever Place consult to:: DR. COVINGTON Notified:: DR. Lucero Phone number called:: [phone] Time called:: 14:19 Comment:: TEXT DR. COVINGTON CONSULT 12/20/17 11:40 Consult to Physician [CONS] Routine Consulting Provider: LUIS E MICHAELS Reason For Exam: Evaluate permacath for infection, your pt Place consult to:: DR. PALMER Notified:: OFFICE Phone number called:: [phone] Was contact made?: Yes If yes, spoke with:: JASPAL Time called:: 11:55 Comment:: HOLDEN NOTIFIED Primary care physician: TRAVEL PT Hospitalization Condition: Stable Hospital course: Patient is a 31 yo man with a history of ESRD on hemodialysis, chronic anemia, chronic pain syndrome, SLE with lupus nephritis and hyperthyroidism who presented to the emergency department with low hemoglobin and fatigue. Patient states he sees at [facility] for SLE and his prednisone was decreased, also he admits to missing his dialysis on occasions 2v CXR reported as probable left lower lobe infiltrate -Acute on chronic anemia of chronic disease: Status post 2 units of blood: repeat H&H and monitor closely -Aspiration pneumonia, LLL with sepsis, poa most likely -ESRD: Consult nephrology for hemodialysis -Pancytopenia: consult heme/onc, started on Neupogen -SLE: consulted heme/onc, pt had recently started Cellcept, he will return to [facility] for follow up -Hyperthyroisim on tapezole: checked free T4, ok, continue current tapezole dose. 12/17/17: per hem/onc, Dr. Moy: "givens cytopenia secondary to medication. Agents white count is still very low. Granix started Monitor counts. Discussed with patient. Continue to hold CellCept and methimazole." 12/18/17: febrile now, consulted ID, started iv vancomycin and levaquin/flagyl ( allergic to pcn with hives and lip swelling, no hold off on cefepime, await ID consult) 12/19/17: Blood culture sent today after abx started. WBC dropped and now improving 12/20/17: Still febrile, ID is following, I consulted Dr. Luis E Michaels to evaluate Perm-a-Cath for infection (he placed on 11/08/17). Anemia still not stable, 1 unit to tranfuse is pending, WBC is improving, am labs ordered 12/21/17: AFebrile, just waiting for WBC to be stable and cleared by Dr. Moy, follow cbc daily, h/h stable after prbc transfusion given yesterday 12/22/17: Last day for tamiflu, WBC counts are improved, d/c neutropenic precautions and discharge. Disposition: DC- TO HOME OR SELFCARE Time spent for discharge: 35 minutes Core Measure Documentation - Palliative Care Palliative Care/ Comfort Measures: Not Applicable - Core Measures Any of the following diagnoses?: none - VTE Discharge Requirements Deep Vein Thrombosis/Pulmonary Embolism Present on Admission: No Has pt received <5 days of overlap therapy or INR<2.0: No Anticoagulant overlap therapy prescribed at discharge: No Contraindication No Overlap Therapy order at DC: Not Indicated Exam - Physical Exam Narrative exam: GEN: WDWN, NAD, AWAKE, ALERT, ORIENTATED 3 HEENT: NCAT, EOMI, PERRL, OP Clear NECK: supple, no adenopathy, no thyromegaly, no JVD CVS/HEART: RRR, NORMAL S1S2, NO JVD, pulses present bilaterally CHEST/LUNGS: CTA B, Symmetrical chest expansion, good air entry bilaterally, right chest wall hemodialysis catheter GI/Abdomen: soft, NTND, good bowel sounds, no guarding or rebound /Bladder: no suprapubic tenderness, no CVA or paraspinal tenderness EXT/Skin: no c/c/e, MSK: FROM x 4 Neuro: CN 2-12 grossly intact, no new focal deficits Psych: calm - Constitutional Vitals: Temp Pulse Resp BP Pulse Ox 98.2 F 96 H 18 151/96 94 12/22/17 08:09 12/22/17 08:09 12/22/17 08:09 12/22/17 12:00 12/22/17 08:09 Plan Activity: other (no strenous activity until cleared by pcp) Diet: regular Follow up with: PRIMARY CAREMD [Primary Care Provider] - 7 Days EFRAÍN CAMPBELL MD [Staff Physician] - 7 Days Prescriptions: diphenhydrAMINE [Benadryl CAP] 25 mg PO QHS PRN #30 capsule PRN Reason: Itching cloNIDine [Catapres] 0.1 mg PO Q8H #90 tablet Labetalol [Normodyne TAB] 300 mg PO BID #60 tablet Levofloxacin [Levaquin] 750 mg PO Q48H #7 dose Oseltamivir [Tamiflu] 75 mg PO QOD #1 capsule oxyCODONE /ACETAMINOPHEN [Percocet 5/325 mg] 1 tab PO Q6H PRN #20 tablet PRN Reason: Pain, Moderate (4-6) predniSONE [Deltasone] 50 mg PO DAILY #30 tablet
[2017-12-22 15:34] VITALS: BP 122/79
== END 2017-12-22 19:30 | disposition home or self-care (01) | DRG 871 ==
LOC: ED 12:54 → 3A 16:49
PROVIDERS: ADMIT Internal Medicine; ATTEND Internal Medicine
PROC: 30233N1 Transfusion of Nonautologous Red Blood Cells into Peripheral Vein, Percutaneous Approach (ICD-10-PCS; principal; 2017-12-15)
PROC: 5A1D70Z Performance of Urinary Filtration, Intermittent, Less than 6 Hours Per Day (ICD-10-PCS; 2017-12-17)
PROC: 5A1D70Z Performance of Urinary Filtration, Intermittent, Less than 6 Hours Per Day (ICD-10-PCS; 2017-12-19)
PROC: 5A1D70Z Performance of Urinary Filtration, Intermittent, Less than 6 Hours Per Day (ICD-10-PCS; 2017-12-21)
DX: A41.9 Sepsis, unspecified organism (principal); N18.6 End stage renal disease; J69.0 Pneumonitis due to inhalation of food and vomit; E43 Unspecified severe protein-calorie malnutrition; Z68.1 Body mass index [BMI] 19.9 or less, adult; G89.4 Chronic pain syndrome; M32.9 Systemic lupus erythematosus, unspecified; E05.90 Thyrotoxicosis, unspecified without thyrotoxic crisis or storm; D63.8 Anemia in other chronic diseases classified elsewhere; D70.9 Neutropenia, unspecified; Z79.899 Other long term (current) drug therapy; Z82.49 Family history of ischemic heart disease and other diseases of the circulatory system; Z88.0 Allergy status to penicillin; Z88.1 Allergy status to other antibiotic agents
CPT/HCPCS: 36415; 71045; 71046; 80048; 80053; 80202; 81001; 83550; 83615; 84100; 84439; 85007; 85025; 85027; 85045; 85610; 85730; 86140; 86160; 86850; 86900; 86901; 86920; 87040; 96374; 96375; 99291; J0692; J0885; J1447; J1644; J1956; J2270; J2405; J3370; J7030; J7040; J7050; J7512; J7517; P9016

== ENCOUNTER 2018-01-02 14:20 | Inpatient (IN) | payer OTHER ==
[2018-01-02 15:33] LABS: Hematocrit 25.9 % (35.5-45.6); Hemoglobin 8.5 gm/dl (11.8-15.2); Mean Corpuscular HGB Conc 33 % (32-34); Mean Corpuscular Hemoglobin 30 pg (28-32); Mean Corpuscular Volume 92 fl (84-94); Platelet Count 123 K/mm3 (140-440); Red Blood Count 2.83 M/mm3 (3.65-5.03)
[2018-01-02 15:38] LABS: Red Cell Distribution Width 21.4 % (13.2-15.2)
[2018-01-02 15:50] LABS: Calcium 7.9 mg/dL (8.4-10.2)
[2018-01-02 16:11] LABS: Basophils % (Manual) 0 % (0.0-1.8); Eosinophils % (Manual) 0 % (0.0-4.3); Myelocytes # (Manual) 0.6 K/mm3; Total Cells Counted 100
[2018-01-02 16:12] LABS: Anisocytosis 1+; Platelet Estimate Appears Decreased; Tear Drop Cells Few
--- NOTE | 2018-01-02 16:35 | XRay Report ---
FINAL REPORT EXAM: XR CHEST ROUTINE 2V HISTORY: Shortness of breath TECHNIQUE: Chest single AP PRIORS: Comparison is dated December 15, 2017 FINDINGS: There blunting of the left costophrenic angle nodes all prior exam. There is minimal blunting of the right costophrenic angle which appears unchanged. Dialysis catheter present with catheter tips at the cavoatrial junction. There is mild subsegmental atelectasis at the left base new since the previous study. IMPRESSION: Small left effusion with atelectasis at the left lung base new since the prior exam Probable small right effusion Dialysis catheter again noted position unchanged
[2018-01-03] MEDS ORDERED: DILAUDID IV ONE (01:25)
[2018-01-03] MEDS ORDERED: ZOFRAN IV ONE (01:26)
--- NOTE | 2018-01-03 01:26 | Emergency Department Report ---
ED General Adult HPI - General Chief complaint: Dyspnea/Respdistress Stated complaint: SHORTNESS OF BREATH Time Seen by Provider: 01/03/18 00:31 Source: patient Mode of arrival: Ambulatory Limitations: No Limitations - History of Present Illness Initial comments: This is a 32-year-old male who suffers from lupus and end-stage renal disease who is on dialysis and he was recently discharged from the hospital on 2017 for pancytopenia who presents to the emergency room today with chief complaints of chest pain, shortness of breath, sensation of chills, constipation , and blood in his stool. He states that the chest pain is intermittent and described as tightness and began about 3 days ago. He states that the shortness of breath comes and goes and has been getting worse over the past 3 days. His last bowel movement was one week ago. He states he noticed some blood at that time. He states it was painful to go. He denies any nausea or vomiting. Denies any fever. He admits to an occasional cough. He states his abdomen is hurting and he would like something for pain as well. -: Gradual Location: chest, abdomen Radiation: non-radiation Consistency: intermittent Worsens with: none Associated Symptoms: chest pain, shortness of breath, weakness Treatments Prior to Arrival: none - Related Data Home Medications Medication Instructions Recorded Confirmed Last Taken Hydroxychloroquine [Plaquenil] 200 mg PO DAILY 12/19/17 12/19/17 Unknown Previous Rx's Medication Instructions Recorded Last Taken Type Methimazole [Tapazole] 5 mg PO QDAY #30 tablet 11/02/17 Unknown Rx amLODIPine [Norvasc] 10 mg PO DAILY #30 tablet 11/02/17 Unknown Rx Acetaminophen [Acetaminophen TAB] 500 mg PO QHS #30 tablet 12/22/17 Unknown Rx Calcitriol [Rocaltrol] 0.5 mcg PO QDAY #30 capsule 12/22/17 Unknown Rx Labetalol [Normodyne TAB] 300 mg PO BID #60 tablet 12/22/17 Unknown Rx Levofloxacin [Levaquin] 750 mg PO Q48H #7 dose 12/22/17 Unknown Rx Oseltamivir [Tamiflu] 75 mg PO QOD #1 capsule 12/22/17 Unknown Rx Sevelamer Carbonate [Renvela] 1,600 mg PO AC tablet 12/22/17 Unknown Rx cloNIDine [Catapres] 0.1 mg PO Q8H #90 tablet 12/22/17 Unknown Rx diphenhydrAMINE [Benadryl CAP] 25 mg PO QHS PRN #30 capsule 12/22/17 Unknown Rx oxyCODONE /ACETAMINOPHEN [Percocet 1 tab PO Q6H PRN #20 tablet 12/22/17 Unknown Rx 5/325 mg] predniSONE [Deltasone] 50 mg PO DAILY #30 tablet 12/22/17 Unknown Rx Allergies Allergy/AdvReac Type Severity Reaction Status Date / Time amoxicillin Allergy Itching Verified 12/15/17 14:42 ibuprofen [From Motrin] Allergy Itching Verified 12/15/17 14:42 ED Review of Systems ROS: Stated complaint: SHORTNESS OF BREATH Other details as noted in HPI Comment: All other systems reviewed and negative Constitutional: see HPI, chills Eyes: as per HPI ENT: as per HPI Respiratory: see HPI Cardiovascular: as per HPI Endocrine: see HPI Gastrointestinal: as per HPI Genitourinary: as per HPI Musculoskeletal: as per HPI Skin: as per HPI Neurological: as per HPI Psychiatric: as per HPI Hematological/Lymphatic: as per HPI ED Past Medical Hx - Past Medical History Previous Medical History?: Yes Hx Hypertension: Yes Hx Renal Disease: Yes Additional medical history: Lupus, hyperthyroidism, anemia (unknown etiology) - Surgical History Past Surgical History?: No - Social History Smoking Status: Never Smoker Substance Use Type: None - Medications Home Medications: Home Medications Medication Instructions Recorded Confirmed Last Taken Type Methimazole [Tapazole] 5 mg PO QDAY #30 tablet 11/02/17 12/19/17 Unknown Rx amLODIPine [Norvasc] 10 mg PO DAILY #30 tablet 11/02/17 12/19/17 Unknown Rx Hydroxychloroquine [Plaquenil] 200 mg PO DAILY 12/19/17 12/19/17 Unknown History Acetaminophen [Acetaminophen TAB] 500 mg PO QHS #30 tablet 12/22/17 Unknown Rx Calcitriol [Rocaltrol] 0.5 mcg PO QDAY #30 capsule 12/22/17 Unknown Rx Labetalol [Normodyne TAB] 300 mg PO BID #60 tablet 12/22/17 Unknown Rx Levofloxacin [Levaquin] 750 mg PO Q48H #7 dose 12/22/17 Unknown Rx Oseltamivir [Tamiflu] 75 mg PO QOD #1 capsule 12/22/17 Unknown Rx Sevelamer Carbonate [Renvela] 1,600 mg PO AC tablet 12/22/17 Unknown Rx cloNIDine [Catapres] 0.1 mg PO Q8H #90 tablet 12/22/17 Unknown Rx diphenhydrAMINE [Benadryl CAP] 25 mg PO QHS PRN #30 capsule 12/22/17 Unknown Rx oxyCODONE /ACETAMINOPHEN [Percocet 1 tab PO Q6H PRN #20 tablet 12/22/17 Unknown Rx 5/325 mg] predniSONE [Deltasone] 50 mg PO DAILY #30 tablet 12/22/17 Unknown Rx ED Physical Exam - General Limitations: No Limitations General appearance: alert, in no apparent distress - Head Head exam: Present: atraumatic - Eye Eye exam: Present: normal appearance - ENT ENT exam: Present: normal exam - Neck Neck exam: Present: normal inspection - Respiratory Respiratory exam: Present: normal lung sounds bilaterally. Absent: respiratory distress, wheezes, rales, rhonchi - Cardiovascular Cardiovascular Exam: Present: regular rate, normal heart sounds, systolic murmur - GI/Abdominal GI/Abdominal exam: Present: soft, tenderness, normal bowel sounds. Absent: distended, guarding, rebound, rigid - Extremities Exam Extremities exam: Present: pedal edema - Neurological Exam Neurological exam: Present: alert, oriented X3, CN II-XII intact - Psychiatric Psychiatric exam: Present: normal affect, normal mood - Skin Skin exam: Present: warm, dry, intact, normal color ED Course Vital Signs 01/02/18 01/03/18 01/03/18 14:54 00:04 00:10 Temperature 97.9 F Pulse Rate 92 H 80 Respiratory 16 12 12 Rate Blood Pressure 116/80 O2 Sat by Pulse 98 99 Oximetry 01/03/18 01/03/18 01/03/18 00:15 00:30 00:45 Temperature Pulse Rate 87 73 77 Respiratory 12 11 L 12 Rate Blood Pressure 140/90 147/92 O2 Sat by Pulse 100 99 99 Oximetry 01/03/18 01/03/18 01:00 01:15 Temperature Pulse Rate 74 85 Respiratory 15 11 L Rate Blood Pressure 139/89 142/85 O2 Sat by Pulse 99 98 Oximetry - Reevaluation(s) Reevaluation #1: 01/03/18 01:36 His initial blood work that was done at triage does reveal an elevated WBC count to 16,000. It should be noted that he has been put on new medications that are meant to stimulate his white cell blood count production. I believe his leukocytosis is due to that. Troponin level and cardiac enzymes were not ordered during initial triage. I will go ahead and order those now. He was treated for the flu on his last admission. Therefore I do not think that we should repeat a flu swab today. Will also order an acute abdomen series to evaluate his abdominal pain. It could very well be related to constipation. His EKG does not reveal any significant findings at this time. The patient does make urine so we will go ahead and get a urinalysis as well. He denies any fever at this time. 01/03/18 01:56 I spoke to the hospitalist who asked that the patient receive a CTA to rule out pulmonary embolism. We will go ahead and order that. Patient signed out to Dr. Robles, discussed with Dr. Rainey. ED Medical Decision Making - Lab Data Result diagrams: 01/02/18 15:21 01/02/18 15:21 Critical care attestation.: If time is entered above; I have spent that time in minutes in the direct care of this critically ill patient, excluding procedure time. ED Disposition Clinical Impression: Shortness of breath Chest pain Qualifiers: Chest pain type: other chest pain Qualified Code(s): R07.89 - Other chest pain ; R07.8 - Other chest pain Condition: Stable Instructions: Chest Pain (ED) Referrals: SUZETTE FREITAS MD [Primary Care Provider] - 3-5 Days
--- NOTE | 2018-01-03 02:10 | XRay Report ---
FINAL REPORT EXAM: XR ABDOMEN 2V HISTORY: Abdominal Pain COMPARISON: Chest x-ray from yesterday. FINDINGS: AP views of the abdomen obtained. No gross free air. Gas scattered within non dilated bowl loops. No gross pathologic calcifications. Bony structures are grossly intact. Moderate stool in the colon. Metallic foreign bodies project over the lower pelvis likely relating to clothing. Small consolidation effusion at the left lung base is seen on prior exam. IMPRESSION: Nonobstructive bowel gas pattern. Moderate stool in the colon. Consolidation effusion at the left lung base as seen on recent chest x-ray.
[2018-01-03 02:31] LABS: Creatine Kinase MB 1.2 ng/mL (0.0-4.0)
[2018-01-03 02:32] LABS: Alanine Aminotransferase 20 units/L (7-56); Albumin 2.7 g/dL (3.9-5); BUN/Creatinine Ratio 10; Blood Urea Nitrogen 48 mg/dL (9-20); Calcium 7.9 mg/dL (8.4-10.2); Hemolysis Index 0
[2018-01-03 02:36] LABS: Bilirubin,Direct < 0.2 mg/dL (0-0.2)
[2018-01-03 03:01] LABS: Chol/HDL Ratio 4.09 %; HDL Cholesterol 41 mg/dL (40-59); LDL Cholesterol,Direct 98 mg/dL (50-130)
--- NOTE | 2018-01-03 04:18 | Cat Scan Report ---
FINAL REPORT EXAM: CT ANGIO CHEST HISTORY: shortness of breath TECHNIQUE: A CT angiogram was obtained following the intravenous injection of 100 cc of Omnipaque 350. Rotational, sagittal and coronal MIP reconstructions were reviewed. FINDINGS: There is no evidence of pulmonary embolus or aortic dissection. The aorta is ectatic with the ascending aorta measuring 3.3 cm in diameter. The proximal descending thoracic aorta measures 3.2 cm in diameter. Heart is moderately enlarged. Pericardial fluid is not seen. There is no evidence of adenopathy. The lungs appear congested. There are bilateral small to moderate sized pleural effusions with atelectatic changes in both lower lobes. At the thoracic inlet the thyroid gland appears normal. The skeletal structures are well-maintained. In the upper abdomen there is a 16 millimeter cortical cyst in the right kidney. IMPRESSION: No evidence of pulmonary embolus or aortic dissection. Cardiomegaly with pulmonary vascular congestion and bilateral effusions. Bilateral small to moderate sized pleural effusions with atelectatic changes in both lower lobes. Small cortical cyst in the upper pole of the right kidney.
[2018-01-03] MEDS ORDERED: TYLENOL PO PRN (05:21)
[2018-01-03] MEDS ORDERED: ZOFRAN IV PRN (05:21)
[2018-01-03] MEDS ORDERED: MILK OF MAGNESIA PO PRN (05:21)
[2018-01-03] MEDS ORDERED: DULCOLAX PR PRN (05:21)
--- NOTE | 2018-01-03 05:34 | History and Physical Report ---
History of Present Illness Date of examination: 01/03/18 History of present illness: 32-year-old man with a history of lupus, end-stage renal disease on dialysis Tuesday, hypothyroidism,complains of shortness of breath 5 days ago. Admits to missing dialysis. Also complaining of chest pain . Chest pain is in the epigastric area, started 3 days ago which he describes a tightness, intermittent in nature lasting for a few seconds, the radiation, he cannot identify exacerbating or relieving factors. Also complaining of 2 episodes of blood in his stool yesterday Review Of Systems: Constitutional: no weight loss Ears, eyes, nose, mouth and throat: no nasal congestion, no nasal discharge, no sinus pressure, blurry vision, diplopia Neck: No neck pain or rigidity. Cardiovascular: No palpitations Respiratory: No cough Gastrointestinal: No abdominal pain, hematochezia Genitourinary : no dysuria, frequency , hematuria Musculoskeletal: no muscle ache Integumentary: no rash, no pruritis Neurological: no parathesias, focal weakness Endocrine: no cold or heat intolerance, no polyuria or polydipsia Hematologic/Lymphatic: no easy bruising, no easy bleeding, no gland swelling Allergic/Immunologic: no urticaria, no angioedema.. PAST MEDICAL HISTORY:lupus, end-stage renal disease on dialysis Tuesday, hypothyroidism PAST SURGICAL HISTORY: AV fistula FAMILY HISTORY: Hypertension SOCIAL HISTORY: Denies alcohol, tobacco, drugs Medications and Allergies Allergies Allergy/AdvReac Type Severity Reaction Status Date / Time amoxicillin Allergy Itching Verified 12/15/17 14:42 ibuprofen [From Motrin] Allergy Itching Verified 12/15/17 14:42 Home Medications Medication Instructions Recorded Confirmed Last Taken Type Methimazole [Tapazole] 5 mg PO QDAY #30 tablet 11/02/17 12/19/17 Unknown Rx amLODIPine [Norvasc] 10 mg PO DAILY #30 tablet 11/02/17 12/19/17 Unknown Rx Hydroxychloroquine [Plaquenil] 200 mg PO DAILY 12/19/17 12/19/17 Unknown History Acetaminophen [Acetaminophen TAB] 500 mg PO QHS #30 tablet 12/22/17 Unknown Rx Calcitriol [Rocaltrol] 0.5 mcg PO QDAY #30 capsule 12/22/17 Unknown Rx Labetalol [Normodyne TAB] 300 mg PO BID #60 tablet 12/22/17 Unknown Rx Levofloxacin [Levaquin] 750 mg PO Q48H #7 dose 12/22/17 Unknown Rx Oseltamivir [Tamiflu] 75 mg PO QOD #1 capsule 12/22/17 Unknown Rx Sevelamer Carbonate [Renvela] 1,600 mg PO AC tablet 12/22/17 Unknown Rx cloNIDine [Catapres] 0.1 mg PO Q8H #90 tablet 12/22/17 Unknown Rx diphenhydrAMINE [Benadryl CAP] 25 mg PO QHS PRN #30 capsule 12/22/17 Unknown Rx oxyCODONE /ACETAMINOPHEN [Percocet 1 tab PO Q6H PRN #20 tablet 12/22/17 Unknown Rx 5/325 mg] predniSONE [Deltasone] 50 mg PO DAILY #30 tablet 12/22/17 Unknown Rx Active Meds: Active Medications Acetaminophen (Tylenol) 650 mg PO Q4H PRN PRN Reason: Pain MILD(1-3)/Fever >100.5/HAYNES Bisacodyl (Dulcolax) 10 mg DC QDAY PRN PRN Reason: Constipation unrelieved by MOM Levofloxacin/Dextrose (Levaquin 500mg/100ml) 500 mg in 100 mls @ 100 mls/hr IV Q24HR RAMOS PRN Reason: Protocol Magnesium Hydroxide (Milk Of Magnesia) 30 ml PO Q4H PRN PRN Reason: Constipation Ondansetron HCl (Zofran) 4 mg IV Q8H PRN PRN Reason: N/V unrelieved by Reglan Oxycodone/Acetaminophen (Percocet 5/325) 1 tab PO Q6H PRN PRN Reason: Pain, Moderate (4-6) Exam - Physical Exam Narrative exam: Gen. appearance: Patient lying in bed in no acute distress HEENT: Normocephalic/atraumatic, pupils equal round reactive to light, extra occular movement intact, no scleral icterus, no JVD or thyromegaly or nodule, neck is supple, mucous membrane moist, no erythema or exudate Heart: S1-S2, regular rate and rhythm Lungs: Decreased breath bilateral breathing comfortable Abdomen: Positive bowel sounds, nontender, nondistended, no organomegaly Extremities: No edema, cyanosis, clubbing Neuro:: Oriented 3 , cranial nerves II-12 intact, speech, motor intact Skin: No rash, nodules, warm dry - Constitutional Vitals: Temp Pulse Resp BP Pulse Ox 97.9 F 76 12 152/98 99 01/02/18 14:54 01/03/18 03:30 01/03/18 03:30 01/03/18 03:30 01/03/18 02:16 Results - Labs CBC & Chem 7: 01/02/18 15:21 01/03/18 01:48 Labs: Abnormal lab results 01/02/18 01/02/18 01/03/18 Range/Units 15:21 15:21 01:48 WBC 16.0 H (4.5-11.0) K/mm3 RBC 2.83 L (3.65-5.03) M/mm3 Hgb 8.5 L (11.8-15.2) gm/dl Hct 25.9 L (35.5-45.6) % RDW 21.4 H (13.2-15.2) % Plt Count 123 L (140-440) K/mm3 Seg Neuts % (Manual) 74.0 H (40.0-70.0) % Seg Neutrophils # Man 11.8 H (1.8-7.7) K/mm3 Potassium 3.3 L (3.6-5.0) mmol/L BUN 43 H 48 H (9-20) mg/dL Creatinine 4.7 H 5.0 H (0.8-1.5) mg/dL Glucose 132 H 115 H (75-100) mg/dL Calcium 7.9 L 7.9 L (8.4-10.2) mg/dL Total Creatine Kinase 48 L (55-170) units/L Troponin T 0.051 H (0.00-0.029) ng/mL Total Protein 5.8 L (6.3-8.2) g/dL Albumin 2.7 L (3.9-5) g/dL - Imaging and Cardiology EKG: image reviewed Chest x-ray: image reviewed CT scan - chest: report reviewed Assessment and Plan Assessment Fluid overload end-stage renal disease on dialysis Chest pain Blood per rectum Lupus Plan Admit to medicine Consult renal for dialysis Check cardiac enzymes, consult cardiology Hemoglobin stable consult GI Continue her present outpatient medications DVT prophylaxis
[2018-01-03] MEDS: PERCOCET 5/325 PO PRN ×3 (08:25→22:26)
[2018-01-03 08:44] LABS: Bacteria,Urine 1+ /HPF (Negative); Bilirubin,Urine NEG (Negative); Blood,Urine NEG (Negative); Color,Urine Yellow (Yellow); Mucus,Urine FEW /HPF; Nitrite,Urine NEG (Negative); Urobilinogen,Urine < 2.0 mg/dL (<2.0)
[2018-01-03 08:46] LABS: Protein,Urine <30 mg dL mg/dL (Negative)
[2018-01-03] MEDS ORDERED: LEVAQUIN 500MG/100ML 500 MG/100 ML BAG IV SCH (10:00)
--- NOTE | 2018-01-03 10:38 | Gastroenterology Consultation ---
<TANNER WEBER - Last Filed: 01/03/18 10:42> History of Present Illness - Reason for Consult Consult date: 01/03/18 rectal bleed Requesting physician: RIVKA CSATREJON - History of Present Illness Patient is a 32 y/o male with PMH of lupus and ESRD on HD who was recently discharged from hospital 12/22/17 for pancytopenia who presented to ED with c/o CP, SOB, chills, constipation, and blood in his stool. CTA was negative for PE and Abd x-ray showed moderate stool in colon. GI has been consulted for rectal bleeding. This am pt was resting in bed w/o acute distress. He reports a recent episode of constipation and gave himself an enema while at home last Tuesday when he noticed scant amount of rectal bleeding with bright red blood. No further signs of bleeding x 2 days. No rectal pain. No hematemesis or melena. Denies fever, wt loss, abd pain, N/V, dysphagia, or diarrhea. No Fhx of colon CA. No previous colonoscopy. Past History Past Medical History: ESRD (on HD), hypothyroidism, other (lupus) Past Surgical History: Other (AV fistula) Social history: denies: smoking, alcohol abuse Family history: hypertension Medications and Allergies Allergies Allergy/AdvReac Type Severity Reaction Status Date / Time amoxicillin Allergy Itching Verified 12/15/17 14:42 ibuprofen [From Motrin] Allergy Itching Verified 12/15/17 14:42 Home Medications Medication Instructions Recorded Confirmed Last Taken Type Methimazole [Tapazole] 5 mg PO QDAY #30 tablet 11/02/17 01/03/18 Unknown Rx amLODIPine [Norvasc] 10 mg PO DAILY #30 tablet 11/02/17 01/03/18 Unknown Rx Hydroxychloroquine [Plaquenil] 200 mg PO DAILY 12/19/17 01/03/18 Unknown History Acetaminophen [Acetaminophen TAB] 500 mg PO QHS #30 tablet 12/22/17 01/03/18 Unknown Rx Calcitriol [Rocaltrol] 0.5 mcg PO QDAY #30 capsule 12/22/17 01/03/18 Unknown Rx Labetalol [Normodyne TAB] 300 mg PO BID #60 tablet 12/22/17 01/03/18 Unknown Rx Levofloxacin [Levaquin] 750 mg PO Q48H #7 dose 12/22/17 01/03/18 Unknown Rx Oseltamivir [Tamiflu] 75 mg PO QOD #1 capsule 12/22/17 01/03/18 Unknown Rx Sevelamer Carbonate [Renvela] 1,600 mg PO AC tablet 12/22/17 01/03/18 Unknown Rx cloNIDine [Catapres] 0.1 mg PO Q8H #90 tablet 12/22/17 01/03/18 Unknown Rx diphenhydrAMINE [Benadryl CAP] 25 mg PO QHS PRN #30 capsule 12/22/17 01/03/18 Unknown Rx oxyCODONE /ACETAMINOPHEN [Percocet 1 tab PO Q6H PRN #20 tablet 12/22/17 Unknown Rx 5/325 mg] predniSONE [Deltasone] 50 mg PO DAILY #30 tablet 12/22/17 01/03/18 Unknown Rx Active Meds: Active Medications Acetaminophen (Tylenol) 650 mg PO Q4H PRN PRN Reason: Pain MILD(1-3)/Fever >100.5/HAYNES Bisacodyl (Dulcolax) 10 mg AR QDAY PRN PRN Reason: Constipation unrelieved by MOM Levofloxacin/Dextrose (Levaquin 500mg/100ml) 500 mg in 100 mls @ 100 mls/hr IV Q48HR RAMOS PRN Reason: Protocol Magnesium Hydroxide (Milk Of Magnesia) 30 ml PO Q4H PRN PRN Reason: Constipation Ondansetron HCl (Zofran) 4 mg IV Q8H PRN PRN Reason: N/V unrelieved by Reglan Oxycodone/Acetaminophen (Percocet 5/325) 1 tab PO Q6H PRN PRN Reason: Pain, Moderate (4-6) Last Admin: 01/03/18 08:25 Dose: 1 tab Review of Systems - Review of Systems All systems: negative Gastrointestinal: hematochezia, no abdominal pain, no nausea, no vomiting, no hematemesis, no melena Exam - Constitutional Vital Signs: Temp Pulse Resp BP Pulse Ox 98.7 F 67 10 L 147/92 98 01/03/18 09:15 01/03/18 09:15 01/03/18 09:15 01/03/18 09:15 02/06/18 09:15 General appearance: no acute distress, other (thin appearing) - Respiratory Respiratory: bilateral: CTA - Cardiovascular Rhythm: regular Heart Sounds: Present: S1 & S2 - Gastrointestinal General gastrointestinal: Present: soft, non-distended, normal bowel sounds - Neurologic Neurological: alert and oriented x3 - Labs CBC & Chem 7: 01/02/18 15:21 01/03/18 01:48 Lab Results: Laboratory Results - last 24 hr 01/02/18 01/02/18 01/03/18 15:21 15:21 01:48 WBC 16.0 H RBC 2.83 L Hgb 8.5 L Hct 25.9 L MCV 92 MCH 30 MCHC 33 RDW 21.4 H Plt Count 123 L Add Manual Diff Complete Total Counted 100 Seg Neuts % (Manual) 74.0 H Band Neutrophils % 0 Lymphocytes % (Manual) 18.0 Reactive Lymphs % (Man) 0 Monocytes % (Manual) 1.0 Eosinophils % (Manual) 0 Basophils % (Manual) 0 Metamyelocytes % 3.0 Myelocytes % 4.0 Promyelocytes % 0 Blast Cells % 0 Nucleated RBC % Not Reportable Seg Neutrophils # Man 11.8 H Band Neutrophils # 0.0 Lymphocytes # (Manual) 2.9 Abs React Lymphs (Man) 0.0 Monocytes # (Manual) 0.2 Eosinophils # (Manual) 0.0 Basophils # (Manual) 0.0 Metamyelocytes # 0.5 Myelocytes # 0.6 Promyelocytes # 0.0 Blast Cells # 0.0 WBC Morphology Not Reportable Hypersegmented Neuts Not Reportable Hyposegmented Neuts Not Reportable Hypogranular Neuts Not Reportable Smudge Cells Not Reportable Toxic Granulation Not Reportable Toxic Vacuolation Not Reportable Dohle Bodies Not Reportable Pelger-Huet Anomaly Not Reportable Kam Rods Not Reportable Platelet Estimate Appears decreased Clumped Platelets Not Reportable Plt Clumps, EDTA Not Reportable Large Platelets Not Reportable Giant Platelets Not Reportable Platelet Satelliting Not Reportable Plt Morphology Comment Not Reportable RBC Morphology Not Reportable Dimorphic RBCs Not Reportable Polychromasia Not Reportable Hypochromasia Not Reportable Poikilocytosis Not Reportable Anisocytosis 1+ Microcytosis Not Reportable Macrocytosis Not Reportable Spherocytes Not Reportable Pappenheimer Bodies Not Reportable Sickle Cells Not Reportable Target Cells Not Reportable Tear Drop Cells Few Ovalocytes Not Reportable Helmet Cells Not Reportable Stanley-[place]yn[place]wood Bodies Not Reportable Freeman Rings Not Reportable Nunu Cells Not Reportable Bite Cells Not Reportable Crenated Cell Not Reportable Elliptocytes Not Reportable Acanthocytes (Spur) Not Reportable Rouleaux Not Reportable Hemoglobin C Crystals Not Reportable Schistocytes Not Reportable Malaria parasites Not Reportable Nasir Bodies Not Reportable Hem Pathologist Commnt No Sodium 141 142 Potassium 3.3 L 3.6 Chloride 98.5 99.3 Carbon Dioxide 30 27 Anion Gap 16 19 BUN 43 H 48 H Creatinine 4.7 H 5.0 H Estimated GFR 18 17 BUN/Creatinine Ratio 9 10 Glucose 132 H 115 H Calcium 7.9 L 7.9 L Magnesium 1.90 Total Bilirubin 0.30 Direct Bilirubin < 0.2 Indirect Bilirubin 0.1 AST 22 ALT 20 Alkaline Phosphatase 77 Total Creatine Kinase 48 L CK-MB (CK-2) 1.2 CK-MB (CK-2) Rel Index 2.5 Troponin T 0.051 H Total Protein 5.8 L Albumin 2.7 L Albumin/Globulin Ratio 0.9 Triglycerides 146 Cholesterol 168 LDL Cholesterol Direct 98 HDL Cholesterol 41 Cholesterol/HDL Ratio 4.09 Urine Color Urine Turbidity Urine pH Ur Specific [place] Urine Protein Urine Glucose (UA) Urine Ketones Urine Blood Urine Nitrite Urine Bilirubin Urine Urobilinogen Ur Leukocyte Esterase Urine WBC (Auto) Urine RBC (Auto) Urine Bacteria (Auto) Urine Mucus 01/03/18 08:18 WBC RBC Hgb Hct MCV MCH MCHC RDW Plt Count Add Manual Diff Total Counted Seg Neuts % (Manual) Band Neutrophils % Lymphocytes % (Manual) Reactive Lymphs % (Man) Monocytes % (Manual) Eosinophils % (Manual) Basophils % (Manual) Metamyelocytes % Myelocytes % Promyelocytes % Blast Cells % Nucleated RBC % Seg Neutrophils # Man Band Neutrophils # Lymphocytes # (Manual) Abs React Lymphs (Man) Monocytes # (Manual) Eosinophils # (Manual) Basophils # (Manual) Metamyelocytes # Myelocytes # Promyelocytes # Blast Cells # WBC Morphology Hypersegmented Neuts Hyposegmented Neuts Hypogranular Neuts Smudge Cells Toxic Granulation Toxic Vacuolation Dohle Bodies Pelger-Huet Anomaly Kam Rods Platelet Estimate Clumped Platelets Plt Clumps, EDTA Large Platelets Giant Platelets Platelet Satelliting Plt Morphology Comment RBC Morphology Dimorphic RBCs Polychromasia Hypochromasia Poikilocytosis Anisocytosis Microcytosis Macrocytosis Spherocytes Pappenheimer Bodies Sickle Cells Target Cells Tear Drop Cells Ovalocytes Helmet Cells Stanley-[place]yn[place]wood Bodies Freeman Rings Nunu Cells Bite Cells Crenated Cell Elliptocytes Acanthocytes (Spur) Rouleaux Hemoglobin C Crystals Schistocytes Malaria parasites Nasir Bodies Hem Pathologist Commnt Sodium Potassium Chloride Carbon Dioxide Anion Gap BUN Creatinine Estimated GFR BUN/Creatinine Ratio Glucose Calcium Magnesium Total Bilirubin Direct Bilirubin Indirect Bilirubin AST ALT Alkaline Phosphatase Total Creatine Kinase CK-MB (CK-2) CK-MB (CK-2) Rel Index Troponin T Total Protein Albumin Albumin/Globulin Ratio Triglycerides Cholesterol LDL Cholesterol Direct HDL Cholesterol Cholesterol/HDL Ratio Urine Color Yellow Urine Turbidity Clear Urine pH 5.0 Ur Specific [place] 1.031 H Urine Protein <30 mg dl Urine Glucose (UA) Neg Urine Ketones Neg Urine Blood Neg Urine Nitrite Neg Urine Bilirubin Neg Urine Urobilinogen < 2.0 Ur Leukocyte Esterase Neg Urine WBC (Auto) 13.0 H Urine RBC (Auto) 4.0 Urine Bacteria (Auto) 1+ Urine Mucus Few Assessment and Plan 1.rectal bleeding 2.constipation 3.lupus 4.ESRD on HD -Abd x-ray- showed moderate stool in colon -HGB 8.5- stable compared to previous labs -continue to monitor H/H and transfuse as needed -h/o scant amount of rectal bleeding after given himself an enema on Tuesday- now resolved with no further bleeding x 2 days -etiology- most likely anorectal in nature -no plans for colonoscopy at this time unless overt bleeding develops -recommend a daily bowel regimen with Miralax for constipation -continue Dulcolax PRN -continue supportive care -recommend pt f/u in clinic as an outpatient -will sign off, please call as needed <CASPER FAUST - Last Filed: 01/03/18 14:26> Medications and Allergies Active Meds: Active Medications Acetaminophen (Tylenol) 650 mg PO Q4H PRN PRN Reason: Pain MILD(1-3)/Fever >100.5/HAYNES Bisacodyl (Dulcolax) 10 mg AR QDAY PRN PRN Reason: Constipation unrelieved by MOM Levofloxacin/Dextrose (Levaquin 500mg/100ml) 500 mg in 100 mls @ 100 mls/hr IV Q48HR RAMOS PRN Reason: Protocol Last Admin: 01/03/18 13:12 Dose: 100 mls/hr Influenza Virus Vaccine Quadrival (Fluarix Quad [id number](36 Mos+) 0.5 ml IM .ONCE ONE Stop: 01/04/18 12:02 Magnesium Hydroxide (Milk Of Magnesia) 30 ml PO Q4H PRN PRN Reason: Constipation Ondansetron HCl (Zofran) 4 mg IV Q8H PRN PRN Reason: N/V unrelieved by Reglan Oxycodone/Acetaminophen (Percocet 5/325) 1 tab PO Q6H PRN PRN Reason: Pain, Moderate (4-6) Last Admin: 01/03/18 13:11 Dose: 1 tab Polyethylene Glycol (Miralax 3350) 17 gm PO QDAY [facility] Last Admin: 01/03/18 13:12 Dose: 17 gm Exam - Constitutional Vital Signs: Temp Pulse Resp BP Pulse Ox 98.7 F 67 10 L 147/92 98 01/03/18 09:15 01/03/18 09:15 01/03/18 09:15 01/03/18 09:15 01/03/18 09:15 - Labs CBC & Chem 7: 01/02/18 15:21 01/03/18 01:48 Lab Results: Laboratory Results - last 24 hr 01/02/18 01/02/18 01/03/18 15:21 15:21 01:48 WBC 16.0 H RBC 2.83 L Hgb 8.5 L Hct 25.9 L MCV 92 MCH 30 MCHC 33 RDW 21.4 H Plt Count 123 L Add Manual Diff Complete Total Counted 100 Seg Neuts % (Manual) 74.0 H Band Neutrophils % 0 Lymphocytes % (Manual) 18.0 Reactive Lymphs % (Man) 0 Monocytes % (Manual) 1.0 Eosinophils % (Manual) 0 Basophils % (Manual) 0 Metamyelocytes % 3.0 Myelocytes % 4.0 Promyelocytes % 0 Blast Cells % 0 Nucleated RBC % Not Reportable Seg Neutrophils # Man 11.8 H Band Neutrophils # 0.0 Lymphocytes # (Manual) 2.9 Abs React Lymphs (Man) 0.0 Monocytes # (Manual) 0.2 Eosinophils # (Manual) 0.0 Basophils # (Manual) 0.0 Metamyelocytes # 0.5 Myelocytes # 0.6 Promyelocytes # 0.0 Blast Cells # 0.0 WBC Morphology Not Reportable Hypersegmented Neuts Not Reportable Hyposegmented Neuts Not Reportable Hypogranular Neuts Not Reportable Smudge Cells Not Reportable Toxic Granulation Not Reportable Toxic Vacuolation Not Reportable Dohle Bodies Not Reportable Pelger-Huet Anomaly Not Reportable Kam Rods Not Reportable Platelet Estimate Appears decreased Clumped Platelets Not Reportable Plt Clumps, EDTA Not Reportable Large Platelets Not Reportable Giant Platelets Not Reportable Platelet Satelliting Not Reportable Plt Morphology Comment Not Reportable RBC Morphology Not Reportable Dimorphic RBCs Not Reportable Polychromasia Not Reportable Hypochromasia Not Reportable Poikilocytosis Not Reportable Anisocytosis 1+ Microcytosis Not Reportable Macrocytosis Not Reportable Spherocytes Not Reportable Pappenheimer Bodies Not Reportable Sickle Cells Not Reportable Target Cells Not Reportable Tear Drop Cells Few Ovalocytes Not Reportable Helmet Cells Not Reportable Stanley-[place]ynnewood Bodies Not Reportable Freeman Rings Not Reportable Nunu Cells Not Reportable Bite Cells Not Reportable Crenated Cell Not Reportable Elliptocytes Not Reportable Acanthocytes (Spur) Not Reportable Rouleaux Not Reportable Hemoglobin C Crystals Not Reportable Schistocytes Not Reportable Malaria parasites Not Reportable Nasir Bodies Not Reportable Hem Pathologist Commnt No Sodium 141 142 Potassium 3.3 L 3.6 Chloride 98.5 99.3 Carbon Dioxide 30 27 Anion Gap 16 19 BUN 43 H 48 H Creatinine 4.7 H 5.0 H Estimated GFR 18 17 BUN/Creatinine Ratio 9 10 Glucose 132 H 115 H Calcium 7.9 L 7.9 L Magnesium 1.90 Total Bilirubin 0.30 Direct Bilirubin < 0.2 Indirect Bilirubin 0.1 AST 22 ALT 20 Alkaline Phosphatase 77 Total Creatine Kinase 48 L CK-MB (CK-2) 1.2 CK-MB (CK-2) Rel Index 2.5 Troponin T 0.051 H Total Protein 5.8 L Albumin 2.7 L Albumin/Globulin Ratio 0.9 Triglycerides 146 Cholesterol 168 LDL Cholesterol Direct 98 HDL Cholesterol 41 Cholesterol/HDL Ratio 4.09 Urine Color Urine Turbidity Urine pH Ur Specific [place] Urine Protein Urine Glucose (UA) Urine Ketones Urine Blood Urine Nitrite Urine Bilirubin Urine Urobilinogen Ur Leukocyte Esterase Urine WBC (Auto) Urine RBC (Auto) Urine Bacteria (Auto) Urine Mucus 01/03/18 01/03/18 08:18 09:59 WBC RBC Hgb Hct MCV MCH MCHC RDW Plt Count Add Manual Diff Total Counted Seg Neuts % (Manual) Band Neutrophils % Lymphocytes % (Manual) Reactive Lymphs % (Man) Monocytes % (Manual) Eosinophils % (Manual) Basophils % (Manual) Metamyelocytes % Myelocytes % Promyelocytes % Blast Cells % Nucleated RBC % Seg Neutrophils # Man Band Neutrophils # Lymphocytes # (Manual) Abs React Lymphs (Man) Monocytes # (Manual) Eosinophils # (Manual) Basophils # (Manual) Metamyelocytes # Myelocytes # Promyelocytes # Blast Cells # WBC Morphology Hypersegmented Neuts Hyposegmented Neuts Hypogranular Neuts Smudge Cells Toxic Granulation Toxic Vacuolation Dohle Bodies Pelger-Huet Anomaly Kam Rods Platelet Estimate Clumped Platelets Plt Clumps, EDTA Large Platelets Giant Platelets Platelet Satelliting Plt Morphology Comment RBC Morphology Dimorphic RBCs Polychromasia Hypochromasia Poikilocytosis Anisocytosis Microcytosis Macrocytosis Spherocytes Pappenheimer Bodies Sickle Cells Target Cells Tear Drop Cells Ovalocytes Helmet Cells Stanley-[place]yn[place]wood Bodies Freeman Rings Nunu Cells Bite Cells Crenated Cell Elliptocytes Acanthocytes (Spur) Rouleaux Hemoglobin C Crystals Schistocytes Malaria parasites Nasir Bodies Hem Pathologist Commnt Sodium Potassium Chloride Carbon Dioxide Anion Gap BUN Creatinine Estimated GFR BUN/Creatinine Ratio Glucose Calcium Magnesium Total Bilirubin Direct Bilirubin Indirect Bilirubin AST ALT Alkaline Phosphatase Total Creatine Kinase 39 L CK-MB (CK-2) < 1.0 CK-MB (CK-2) Rel Index 2.5 Troponin T 0.047 H Total Protein Albumin Albumin/Globulin Ratio Triglycerides Cholesterol LDL Cholesterol Direct HDL Cholesterol Cholesterol/HDL Ratio Urine Color Yellow Urine Turbidity Clear Urine pH 5.0 Ur Specific [place] 1.031 H Urine Protein <30 mg dl Urine Glucose (UA) Neg Urine Ketones Neg Urine Blood Neg Urine Nitrite Neg Urine Bilirubin Neg Urine Urobilinogen < 2.0 Ur Leukocyte Esterase Neg Urine WBC (Auto) 13.0 H Urine RBC (Auto) 4.0 Urine Bacteria (Auto) 1+ Urine Mucus Few Assessment and Plan Pt complains of chronic constipation. [facility] last had a good BM 1 wk ago. [facility] gave him an enema in the past, and he would like one. Will give Golytely now. If fails, can give Gastrograffin enema. Will stay on case to f/u.
[2018-01-03 10:55] LABS: Creatine Kinase MB < 1.0 ng/mL (0.0-4.0)
--- NOTE | 2018-01-03 11:06 | Consultation ---
History of Present Illness - Reason for Consult Consult date: 01/03/18 end stage renal disease - History of Present Illness This is a 32 year old male who presented to the hospital with a chief complaint of Chest Pain, Constipation with blood in his stool since yesterday. Patient has history of Systemic Lupus, Lupus Nephritis and End Stage Renal Disease on hemodialysis at [facility]. Patient is on a M,W,F schedule. We are being consulted for management of this patient's ESRD. Past History Past Medical History: ESRD (on HD), hyperthyroidism, hypothyroidism, other ( lupus) Past Surgical History: Other (AV fistula) Social history: denies: smoking, alcohol abuse Family history: hypertension Medications and Allergies Allergies Allergy/AdvReac Type Severity Reaction Status Date / Time amoxicillin Allergy Itching Verified 12/15/17 14:42 ibuprofen [From Motrin] Allergy Itching Verified 12/15/17 14:42 Home Medications Medication Instructions Recorded Confirmed Last Taken Type Methimazole [Tapazole] 5 mg PO QDAY #30 tablet 11/02/17 01/03/18 Unknown Rx amLODIPine [Norvasc] 10 mg PO DAILY #30 tablet 11/02/17 01/03/18 Unknown Rx Hydroxychloroquine [Plaquenil] 200 mg PO DAILY 12/19/17 01/03/18 Unknown History Acetaminophen [Acetaminophen TAB] 500 mg PO QHS #30 tablet 12/22/17 01/03/18 Unknown Rx Calcitriol [Rocaltrol] 0.5 mcg PO QDAY #30 capsule 12/22/17 01/03/18 Unknown Rx Labetalol [Normodyne TAB] 300 mg PO BID #60 tablet 12/22/17 01/03/18 Unknown Rx Levofloxacin [Levaquin] 750 mg PO Q48H #7 dose 12/22/17 01/03/18 Unknown Rx Oseltamivir [Tamiflu] 75 mg PO QOD #1 capsule 12/22/17 01/03/18 Unknown Rx Sevelamer Carbonate [Renvela] 1,600 mg PO AC tablet 12/22/17 01/03/18 Unknown Rx cloNIDine [Catapres] 0.1 mg PO Q8H #90 tablet 12/22/17 01/03/18 Unknown Rx diphenhydrAMINE [Benadryl CAP] 25 mg PO QHS PRN #30 capsule 12/22/17 01/03/18 Unknown Rx oxyCODONE /ACETAMINOPHEN [Percocet 1 tab PO Q6H PRN #20 tablet 12/22/17 Unknown Rx 5/325 mg] predniSONE [Deltasone] 50 mg PO DAILY #30 tablet 12/22/17 01/03/18 Unknown Rx Active Meds: Active Medications Acetaminophen (Tylenol) 650 mg PO Q4H PRN PRN Reason: Pain MILD(1-3)/Fever >100.5/HAYNES Bisacodyl (Dulcolax) 10 mg MD QDAY PRN PRN Reason: Constipation unrelieved by [facility] Levofloxacin/Dextrose (Levaquin 500mg/100ml) 500 mg in 100 mls @ 100 mls/hr IV Q48HR [facility] PRN Reason: Protocol Magnesium Hydroxide (Milk Of Magnesia) 30 ml PO Q4H PRN PRN Reason: Constipation Ondansetron HCl (Zofran) 4 mg IV Q8H PRN PRN Reason: N/V unrelieved by Reglan Oxycodone/Acetaminophen (Percocet 5/325) 1 tab PO Q6H PRN PRN Reason: Pain, Moderate (4-6) Last Admin: 01/03/18 08:25 Dose: 1 tab Polyethylene Glycol (Miralax 3350) 17 gm PO QDAY [facility] Review of Systems Constitutional: fatigue, no weight loss, no weight gain, no fever, no chills, no sweats, no anorexia, no weakness, no malaise, no lethargy, no poor appetite Ears, nose, mouth and throat: no ear pain, no ear discharge, no tinnitis, no decreased hearing, no nose pain, no nasal congestion, no nasal discharge Cardiovascular: no orthopnea, no palpitations, no rapid/irregular heart beat, no edema, no syncope, no lightheadedness Respiratory: no cough with sputum, no excessive sputum, no hemoptysis, no shortness of breath, no dyspnea on exertion Gastrointestinal: no nausea, no vomiting, no diarrhea, no constipation, no change in bowel habits, no hematemesis Genitourinary Male: no hematuria, no flank pain, no discharge, no urinary frequency, no urinary hesitancy, no nocturia Rectal: no incontinence, no bleeding Musculoskeletal: no neck stiffness, no neck pain, no shooting arm pain, no arm numbness/tingling, no low back pain, no shooting leg pain Integumentary: no rash, no pruritis, no redness, no sores, no wounds, no jaundice Neurological: no transient paralysis, no paralysis, no weakness, no parathesias , no numbness, no tingling, no seizures Psychiatric: no anxiety, no memory loss, no change in sleep habits, no sleep disturbances, no insomnia, no hypersomnia, no change in appetite Endocrine: no cold intolerance, no heat intolerance, no polyphagia, no excessive thirst, no polydipsia, no polyuria, no nocturia Hematologic/Lymphatic: no easy bruising, no easy bleeding, no lymphadenopathy, no lymphedema Exam - Vital Signs Vital signs: Vital Signs Temp Pulse Resp BP Pulse Ox 97.9 F 92 H 16 116/80 98 01/02/18 14:54 01/02/18 14:54 01/02/18 14:54 01/02/18 14:54 01/02/18 14:54 - General Appearance General appearance: well-developed, appears stated age EENT: ATNC, PERRL, hearing intact, vision intact Neck: Present: neck supple, trachea midline Respiratory: Decreased Breath Sounds Heart: regular, S1S2 Gastrointestinal: Present: normoactive bowel sounds Integumentary: warm and dry Neurologic: alert and oriented x3 Musculoskeletal: Present: other (No edema) Psychiatric: cooperative Results - Lab Results 01/02/18 15:21 01/03/18 01:48 Most recent lab results Calcium 7.9 mg/dL (8.4-10.2) L 01/03/18 01:48 Magnesium 1.90 mg/dL (1.7-2.3) 01/03/18 01:48 Assessment and Plan - Patient Problems (1) End stage renal disease on dialysis Current Visit: Yes Status: Acute Plan to address problem: Hemodialysis today for UF and clearance Fluid restriction of 32 ounces per day Renal diet when allowed po intake Obtain daily weights Monitor I/O's Assess dialysis needs daily (2) HTN (hypertension) Current Visit: No Status: Acute Qualifiers: Hypertension type: essential hypertension Qualified Code(s): I10 - Essential (primary) hypertension Plan to address problem: Resume anti-hypertensive agents (3) Lupus Current Visit: No Status: Chronic Qualifiers: Lupus erythematosus form: unspecified Qualified Code(s): L93.0 - Discoid lupus erythematosus Plan to address problem: As per Attending Outpatient Director State Pharmacy is Dr. Bear at [place] (4) Chest pain Current Visit: Yes Status: Acute Qualifiers: Chest pain type: other chest pain Qualified Code(s): R07.89 - Other chest pain; R07.8 - Other chest pain Plan to address problem: Cardiology consulted (5) Constipation Current Visit: Yes Status: Acute Plan to address problem: On Miralax and Dulcolax Monitor for any overt rectal bleeding per GI
--- NOTE | 2018-01-03 13:07 | Progress Note ---
Assessment and Plan Assessment and plan: Patient is a 32 yo man with a history of ESRD on hemodialysis, chronic anemia, chronic pain syndrome, SLE with lupus nephritis and hyperthyroidism who I discharged on 12/22/17 after pancytopenia due to cellcept/LLL pneumonia/ neutropenic fever. He returns for rectal bleeding, constipation, abdominal pains and sob. CTA chest: No evidence of pulmonary embolus or aortic dissection. Cardiomegaly with pulmonary vascular congestion and bilateral effusions. Bilateral small to moderate sized pleural effusions with atelectatic changes in both lower lobes. Small cortical cyst in the upper pole of the right kidney. 2v Abd: Nonobstructive bowel gas pattern. Moderate stool in the colon. Consolidation effusion at the left lung base as seen on recent chest x-ray. -Rectal bleeding: GI to evaluate -Constipation: good bowel regimen -Fluid overload, he missed his dialysis session on Tuesday because he came here: Hemodialysis need -SLE: wbc are much improved on Neuprogen Hopefully d/c tomorrow. History Interval history: Patient was seen and examined. Follow-up on current diagnosis of abdominal pain and rectal bleeding constipation. Overnight uneventful. Patient denies any chest pain, shortness breath, nausea/vomiting or severe headaches. Imaging , nursing note, chart, labs and old chart reviewed. Discussed with patient. Hospitalist Physical - Physical exam Narrative exam: GEN: WDWN, NAD, AWAKE, ALERT, ORIENTATED 3 HEENT: NCAT, EOMI, PERRL, OP Clear NECK: supple, no adenopathy, no thyromegaly, no JVD CVS/HEART: RRR, NORMAL S1S2, pulses present bilaterally CHEST/LUNGS: CTA B, Symmetrical chest expansion, good air entry bilaterally GI/Abdomen: soft, distended, nontender good bowel sounds, no guarding or rebound /Bladder: no suprapubic tenderness, no CVA or paraspinal tenderness EXT/Skin: no c/c/e, no obvious rash MSK: FROM x 4 Neuro: CN 2-12 grossly intact, no new focal deficits Psych: calm - Constitutional Vitals: Temp Pulse Resp BP Pulse Ox 98.7 F 67 10 L 147/92 98 01/03/18 09:15 01/03/18 09:15 01/03/18 09:15 01/03/18 09:15 01/03/18 09:15 Results - Labs CBC & Chem 7: 01/02/18 15:21 01/03/18 01:48 Labs: Laboratory Last Values WBC 16.0 K/mm3 (4.5-11.0) H 01/02/18 15:21 RBC 2.83 M/mm3 (3.65-5.03) L 01/02/18 15:21 Hgb 8.5 gm/dl (11.8-15.2) L 01/02/18 15:21 Hct 25.9 % (35.5-45.6) L 01/02/18 15:21 MCV 92 fl (84-94) 01/02/18 15:21 MCH 30 pg (28-32) 01/02/18 15:21 MCHC 33 % (32-34) 01/02/18 15:21 RDW 21.4 % (13.2-15.2) H 01/02/18 15:21 Plt Count 123 K/mm3 (140-440) L 01/02/18 15:21 Add Manual Diff Complete 01/02/18 15:21 Total Counted 100 01/02/18 15:21 Seg Neuts % (Manual) 74.0 % (40.0-70.0) H 01/02/18 15:21 Band Neutrophils % 0 % 01/02/18 15:21 Lymphocytes % (Manual) 18.0 % (13.4-35.0) 01/02/18 15:21 Reactive Lymphs % (Man) 0 % 01/02/18 15:21 Monocytes % (Manual) 1.0 % (0.0-7.3) 01/02/18 15:21 Eosinophils % (Manual) 0 % (0.0-4.3) 01/02/18 15:21 Basophils % (Manual) 0 % (0.0-1.8) 01/02/18 15:21 Metamyelocytes % 3.0 % 01/02/18 15:21 Myelocytes % 4.0 % 01/02/18 15:21 Promyelocytes % 0 % 01/02/18 15:21 Blast Cells % 0 % 01/02/18 15:21 Nucleated RBC % Not Reportable 01/02/18 15:21 Seg Neutrophils # Man 11.8 K/mm3 (1.8-7.7) H 01/02/18 15:21 Band Neutrophils # 0.0 K/mm3 01/02/18 15:21 Lymphocytes # (Manual) 2.9 K/mm3 (1.2-5.4) 01/02/18 15:21 Abs React Lymphs (Man) 0.0 K/mm3 01/02/18 15:21 Monocytes # (Manual) 0.2 K/mm3 (0.0-0.8) 01/02/18 15:21 Eosinophils # (Manual) 0.0 K/mm3 (0.0-0.4) 01/02/18 15:21 Basophils # (Manual) 0.0 K/mm3 (0.0-0.1) 01/02/18 15:21 Metamyelocytes # 0.5 K/mm3 01/02/18 15:21 Myelocytes # 0.6 K/mm3 01/02/18 15:21 Promyelocytes # 0.0 K/mm3 01/02/18 15:21 Blast Cells # 0.0 K/mm3 01/02/18 15:21 WBC Morphology Not Reportable 01/02/18 15:21 Hypersegmented Neuts Not Reportable 01/02/18 15:21 Hyposegmented Neuts Not Reportable 01/02/18 15:21 Hypogranular Neuts Not Reportable 01/02/18 15:21 Smudge Cells Not Reportable 01/02/18 15:21 Toxic Granulation Not Reportable 01/02/18 15:21 Toxic Vacuolation Not Reportable 01/02/18 15:21 Dohle Bodies Not Reportable 01/02/18 15:21 Pelger-Huet Anomaly Not Reportable 01/02/18 15:21 Kam Rods Not Reportable 01/02/18 15:21 Platelet Estimate Appears decreased 01/02/18 15:21 Clumped Platelets Not Reportable 01/02/18 15:21 Plt Clumps, EDTA Not Reportable 01/02/18 15:21 Large Platelets Not Reportable 01/02/18 15:21 Giant Platelets Not Reportable 01/02/18 15:21 Platelet Satelliting Not Reportable 01/02/18 15:21 Plt Morphology Comment Not Reportable 01/02/18 15:21 RBC Morphology Not Reportable 01/02/18 15:21 Dimorphic RBCs Not Reportable 01/02/18 15:21 Polychromasia Not Reportable 01/02/18 15:21 Hypochromasia Not Reportable 01/02/18 15:21 Poikilocytosis Not Reportable 01/02/18 15:21 Anisocytosis 1+ 01/02/18 15:21 Microcytosis Not Reportable 01/02/18 15:21 Macrocytosis Not Reportable 01/02/18 15:21 Spherocytes Not Reportable 01/02/18 15:21 Pappenheimer Bodies Not Reportable 01/02/18 15:21 Sickle Cells Not Reportable 01/02/18 15:21 Target Cells Not Reportable 01/02/18 15:21 Tear Drop Cells Few 01/02/18 15:21 Ovalocytes Not Reportable 01/02/18 15:21 Helmet Cells Not Reportable 01/02/18 15:21 [place] Bodies Not Reportable 01/02/18 15:21 Freeman Rings Not Reportable 01/02/18 15:21 Mather Cells Not Reportable 01/02/18 15:21 Bite Cells Not Reportable 01/02/18 15:21 Crenated Cell Not Reportable 01/02/18 15:21 Elliptocytes Not Reportable 01/02/18 15:21 Acanthocytes (Spur) Not Reportable 01/02/18 15:21 Rouleaux Not Reportable 01/02/18 15:21 Hemoglobin C Crystals Not Reportable 01/02/18 15:21 Schistocytes Not Reportable 01/02/18 15:21 Malaria parasites Not Reportable 01/02/18 15:21 Nasir Bodies Not Reportable 01/02/18 15:21 Hem Pathologist Commnt No 01/02/18 15:21 Sodium 142 mmol/L (137-145) 01/03/18 01:48 Potassium 3.6 mmol/L (3.6-5.0) 01/03/18 01:48 Chloride 99.3 mmol/L (98-107) 01/03/18 01:48 Carbon Dioxide 27 mmol/L (22-30) 01/03/18 01:48 Anion Gap 19 mmol/L 01/03/18 01:48 BUN 48 mg/dL (9-20) H 01/03/18 01:48 Creatinine 5.0 mg/dL (0.8-1.5) H 01/03/18 01:48 Estimated GFR 17 ml/min 01/03/18 01:48 BUN/Creatinine Ratio 10 % 01/03/18 01:48 Glucose 115 mg/dL (75-100) H 01/03/18 01:48 Calcium 7.9 mg/dL (8.4-10.2) L 01/03/18 01:48 Magnesium 1.90 mg/dL (1.7-2.3) 01/03/18 01:48 Total Bilirubin 0.30 mg/dL (0.1-1.2) 01/03/18 01:48 Direct Bilirubin < 0.2 mg/dL (0-0.2) 01/03/18 01:48 Indirect Bilirubin 0.1 mg/dL 01/03/18 01:48 AST 22 units/L (5-40) 01/03/18 01:48 ALT 20 units/L (7-56) 01/03/18 01:48 Alkaline Phosphatase 77 units/L (35-129) 01/03/18 01:48 Total Creatine Kinase 39 units/L (55-170) L 01/03/18 09:59 CK-MB (CK-2) < 1.0 ng/mL (0.0-4.0) 01/03/18 09:59 CK-MB (CK-2) Rel Index 2.5 (0-4) 01/03/18 09:59 Troponin T 0.047 ng/mL (0.00-0.029) H 01/03/18 09:59 Total Protein 5.8 g/dL (6.3-8.2) L 01/03/18 01:48 Albumin 2.7 g/dL (3.9-5) L 01/03/18 01:48 Albumin/Globulin Ratio 0.9 % 01/03/18 01:48 Triglycerides 146 mg/dL (2-149) 01/03/18 01:48 Cholesterol 168 mg/dL (50-199) 01/03/18 01:48 LDL Cholesterol Direct 98 mg/dL (50-130) 01/03/18 01:48 HDL Cholesterol 41 mg/dL (40-59) 01/03/18 01:48 Cholesterol/HDL Ratio 4.09 % 01/03/18 01:48 Urine Color Yellow (Yellow) 01/03/18 08:18 Urine Turbidity Clear (Clear) 01/03/18 08:18 Urine pH 5.0 (5.0-7.0) 01/03/18 08:18 Ur Specific [place] 1.031 (1.003-1.030) H 01/03/18 08:18 Urine Protein <30 mg dl mg/dL (Negative) 01/03/18 08:18 Urine Glucose (UA) Neg mg/dL (Negative) 01/03/18 08:18 Urine Ketones Neg mg/dL (Negative) 01/03/18 08:18 Urine Blood Neg (Negative) 01/03/18 08:18 Urine Nitrite Neg (Negative) 01/03/18 08:18 Urine Bilirubin Neg (Negative) 01/03/18 08:18 Urine Urobilinogen < 2.0 mg/dL (<2.0) 01/03/18 08:18 Ur Leukocyte Esterase Neg (Negative) 01/03/18 08:18 Urine WBC (Auto) 13.0 /HPF (0.0-6.0) H 01/03/18 08:18 Urine RBC (Auto) 4.0 /HPF (0.0-6.0) 01/03/18 08:18 Urine Bacteria (Auto) 1+ /HPF (Negative) 01/03/18 08:18 Urine Mucus Few /HPF 01/03/18 08:18
[2018-01-03] MEDS: LEVAQUIN 500MG/100ML 500 MG/100 ML BAG IV SCH (13:12)
[2018-01-03] MEDS: MIRALAX 3350 PO SCH (13:12)
--- NOTE | 2018-01-03 14:43 | Consultation ---
History of Present Illness Consult date: 01/03/18 Consult reason: chest pain History of present illness: This is a 32yr old male with a history of hypertension and lupus erythematosus. Patient also has end stage renal disease and is on dialysis. He presents to this hospital with complaints of chest pain, shortness of breath and bright red blood per rectum. Patient reports intermittent chest pain over 3 days. Chest pain is non exertional. An ECG shows a sinus rhythm, no acute ischemic changes. An echocardiogram done 6 months ago demonstrates a normal left ventricular systolic function, EF 55-60%. Cardiology consultation was requested for evaluation of chest pain. Past History Past Surgical History: Other (AV fistula) Social history: denies: smoking, alcohol abuse Family history: hypertension Medications and Allergies Allergies Allergy/AdvReac Type Severity Reaction Status Date / Time amoxicillin Allergy Itching Verified 12/15/17 14:42 ibuprofen [From Motrin] Allergy Itching Verified 12/15/17 14:42 Home Medications Medication Instructions Recorded Confirmed Last Taken Type Methimazole [Tapazole] 5 mg PO QDAY #30 tablet 11/02/17 01/03/18 Unknown Rx amLODIPine [Norvasc] 10 mg PO DAILY #30 tablet 11/02/17 01/03/18 Unknown Rx Hydroxychloroquine [Plaquenil] 200 mg PO DAILY 12/19/17 01/03/18 Unknown History Acetaminophen [Acetaminophen TAB] 500 mg PO QHS #30 tablet 12/22/17 01/03/18 Unknown Rx Calcitriol [Rocaltrol] 0.5 mcg PO QDAY #30 capsule 12/22/17 01/03/18 Unknown Rx Labetalol [Normodyne TAB] 300 mg PO BID #60 tablet 12/22/17 01/03/18 Unknown Rx Levofloxacin [Levaquin] 750 mg PO Q48H #7 dose 12/22/17 01/03/18 Unknown Rx Oseltamivir [Tamiflu] 75 mg PO QOD #1 capsule 12/22/17 01/03/18 Unknown Rx Sevelamer Carbonate [Renvela] 1,600 mg PO AC tablet 12/22/17 01/03/18 Unknown Rx cloNIDine [Catapres] 0.1 mg PO Q8H #90 tablet 12/22/17 01/03/18 Unknown Rx diphenhydrAMINE [Benadryl CAP] 25 mg PO QHS PRN #30 capsule 12/22/17 01/03/18 Unknown Rx oxyCODONE /ACETAMINOPHEN [Percocet 1 tab PO Q6H PRN #20 tablet 12/22/17 Unknown Rx 5/325 mg] predniSONE [Deltasone] 50 mg PO DAILY #30 tablet 12/22/17 01/03/18 Unknown Rx Active Meds: Active Medications Acetaminophen (Tylenol) 650 mg PO Q4H PRN PRN Reason: Pain MILD(1-3)/Fever >100.5/HAYNES Bisacodyl (Dulcolax) 10 mg DC QDAY PRN PRN Reason: Constipation unrelieved by MOM Levofloxacin/Dextrose (Levaquin 500mg/100ml) 500 mg in 100 mls @ 100 mls/hr IV Q48HR [facility] PRN Reason: Protocol Last Admin: 01/03/18 13:12 Dose: 100 mls/hr Influenza Virus Vaccine Quadrival (Fluarix Quad [id number](36 Mos+) 0.5 ml IM .ONCE ONE Stop: 01/04/18 12:02 Magnesium Hydroxide (Milk Of Magnesia) 30 ml PO Q4H PRN PRN Reason: Constipation Ondansetron HCl (Zofran) 4 mg IV Q8H PRN PRN Reason: N/V unrelieved by Reglan Polyethylene Glycol (Miralax 3350) 17 gm PO QDAY [facility] Last Admin: 01/03/18 13:12 Dose: 17 gm Polyethylene Glycol/Electrolytes (Golytely) 4,000 ml PO ONCE ONE Stop: 01/03/18 15:29 Physical Examination Vital Signs Temp Pulse Resp BP Pulse Ox 97.9 F 92 H 16 116/80 98 01/02/18 14:54 01/02/18 14:54 01/02/18 14:54 01/02/18 14:54 01/02/18 14:54 General appearance: no acute distress HEENT: Positive: PERRL Neck: Positive: trachea midline Cardiac: Positive: Reg Rate and Rhythm Lungs: Positive: Decreased Breath Sounds Neuro: Positive: Grossly Intact Results 01/02/18 15:21 01/03/18 01:48 Cardiac Enzymes 01/03/18 01/03/18 Range/Units 01:48 09:59 AST 22 (5-40) units/L CK-MB (CK-2) 1.2 < 1.0 (0.0-4.0) ng/mL Lipids 01/03/18 Range/Units 01:48 Triglycerides 146 (2-149) mg/dL Cholesterol 168 (50-199) mg/dL HDL Cholesterol 41 (40-59) mg/dL Cholesterol/HDL Ratio 4.09 % CBC 01/02/18 Range/Units 15:21 WBC 16.0 H (4.5-11.0) K/mm3 RBC 2.83 L (3.65-5.03) M/mm3 Hgb 8.5 L (11.8-15.2) gm/dl Hct 25.9 L (35.5-45.6) % Plt Count 123 L (140-440) K/mm3 Comprehensive Metabolic Panel 01/02/18 01/03/18 Range/Units 15:21 01:48 Sodium 141 142 (137-145) mmol/L Potassium 3.3 L 3.6 (3.6-5.0) mmol/L Chloride 98.5 99.3 (98-107) mmol/L Carbon Dioxide 30 27 (22-30) mmol/L BUN 43 H 48 H (9-20) mg/dL Creatinine 4.7 H 5.0 H (0.8-1.5) mg/dL Glucose 132 H 115 H (75-100) mg/dL Calcium 7.9 L 7.9 L (8.4-10.2) mg/dL Direct Bilirubin < 0.2 (0-0.2) mg/dL Indirect Bilirubin 0.1 mg/dL AST 22 (5-40) units/L ALT 20 (7-56) units/L Alkaline Phosphatase 77 (35-129) units/L Total Protein 5.8 L (6.3-8.2) g/dL Albumin 2.7 L (3.9-5) g/dL Assessment and Plan Chest pain, atypical Lupus erythematosus Anemia Hypertension ESRD on dialysis EF 55-60% on echo 04/2017. We will arrange for a persantine thallium stress test tomorrow morning.
[2018-01-03] MEDS ORDERED: GOLYTELY PO ONE (15:28)
[2018-01-03] MEDS ORDERED: NACL 0.9% 100 ML IV PRN (15:51)
[2018-01-03] MEDS: HEPARIN IV PRN (18:53)
[2018-01-03] MEDS ORDERED: HEPARIN ONE (22:16)
[2018-01-03] MEDS ORDERED: NACL 0.9 (PRIMING MACHINE ONLY DIALYSIS) MC ONE (22:16)
[2018-01-04] MEDS: PERCOCET 5/325 PO PRN ×4 (06:55→22:36)
[2018-01-04 07:04] LABS: Hematocrit 27.7 % (35.5-45.6); Hemoglobin 9.1 gm/dl (11.8-15.2); Mean Corpuscular HGB Conc 33 % (32-34); Mean Corpuscular Hemoglobin 30 pg (28-32); Mean Corpuscular Volume 91 fl (84-94); Platelet Count 118 K/mm3 (140-440); Red Blood Count 3.03 M/mm3 (3.65-5.03)
[2018-01-04 07:06] LABS: Red Cell Distribution Width 21.5 % (13.2-15.2)
[2018-01-04 07:26] LABS: Albumin 2.6 g/dL (3.9-5); Calcium 7.6 mg/dL (8.4-10.2)
[2018-01-04] MEDS ORDERED: LEXISCAN IV ONE ×2 (08:29→08:30)
[2018-01-04 09:09] LABS: Anisocytosis 1+; Basophils % (Manual) 0 % (0.0-1.8); Eosinophils % (Manual) 0 % (0.0-4.3); Platelet Estimate Consistent w Auto; Total Cells Counted 100
--- NOTE | 2018-01-04 09:51 | Progress Note ---
Assessment and Plan Chest pain, atypical Lupus erythematosus Anemia Hypertension ESRD on dialysis EF 55-60% on echo 04/2017. MPI - no ischemia, LVEF 65% Recommendations: No further cardiac work-up needed Will sign off Subjective Date of service: 01/04/18 Principal diagnosis: Chest Pain Interval history: Lexiscan done - no complications Objective Vital Signs Temp Pulse Resp BP BP Pulse Ox 01/04/18 07:00 70 01/04/18 05:22 128 H 20 168/109 99 01/04/18 00:11 98.4 F 74 18 157/101 96 01/03/18 22:00 18 01/03/18 19:27 98.6 F 72 18 137/96 98 01/03/18 19:00 98.5 F 63 16 133/96 01/03/18 18:00 85 138/96 01/03/18 17:45 66 129/92 01/03/18 17:30 61 128/88 01/03/18 17:15 60 130/90 01/03/18 17:00 78 138/97 01/03/18 16:45 68 120/90 01/03/18 16:30 70 127/96 01/03/18 16:15 61 135/96 01/03/18 16:00 62 129/85 01/03/18 15:45 55 L 134/88 01/03/18 15:30 57 L 149/93 01/03/18 15:15 72 146/94 01/03/18 15:00 72 149/94 01/03/18 11:58 97.5 F L 75 18 147/98 100 01/03/18 09:51 98.1 F 70 18 163/94 99 - Physical Examination HEENT: Positive: PERRL Neck: Positive: trachea midline Cardiac: Positive: Reg Rate and Rhythm Lungs: Positive: Normal Exam Neuro: Positive: Grossly Intact - Labs and Meds Cardiac Enzymes 01/03/18 01/03/18 01/04/18 Range/Units 09:59 17:10 06:40 AST 20 (5-40) units/L CK-MB (CK-2) < 1.0 1.0 (0.0-4.0) ng/mL CBC 01/04/18 Range/Units 06:40 WBC 12.1 H (4.5-11.0) K/mm3 RBC 3.03 L (3.65-5.03) M/mm3 Hgb 9.1 L (11.8-15.2) gm/dl Hct 27.7 L (35.5-45.6) % Plt Count 118 L (140-440) K/mm3 Comprehensive Metabolic Panel 01/04/18 Range/Units 06:40 Sodium 139 (137-145) mmol/L Potassium 3.4 L (3.6-5.0) mmol/L Chloride 96.1 L (98-107) mmol/L Carbon Dioxide 30 (22-30) mmol/L BUN 25 H (9-20) mg/dL Creatinine 3.1 H (0.8-1.5) mg/dL Glucose 77 (75-100) mg/dL Calcium 7.6 L (8.4-10.2) mg/dL AST 20 (5-40) units/L ALT 17 (7-56) units/L Alkaline Phosphatase 73 (35-129) units/L Total Protein 5.9 L (6.3-8.2) g/dL Albumin 2.6 L (3.9-5) g/dL - Imaging and Cardiology EKG: image reviewed
--- NOTE | 2018-01-04 10:26 | Treadmill Report ---
INDICATION: Chest pain. ORDERING PHYSICIAN: Dr. Al Mcdonald. FINDINGS: There is no scintigraphic evidence of myocardial ischemia. There is evidence of a fixed inferior wall defect due to diaphragmatic attenuation artifact. The gated imaging reveals normal wall motion, wall thickening and an ejection fraction measured at 65%. CONCLUSION: 1. No scintigraphic evidence of myocardial ischemia. 2. Normal left ventricular size and systolic function. 3. Diaphragmatic attenuation is present. 4. This is a low risk myocardial perfusion scan associated with adverse cardiovascular events of less than 1% in the next year. JOB# [id number] AIDEN/TYRESE
--- NOTE | 2018-01-04 11:48 | Gastroenterology Progress Note ---
<GUSTANNERLUCIANA Covarrubias - Last Filed: 01/04/18 11:41> Assessment and Plan 1.rectal bleeding 2.constipation 3.lupus 4.ESRD on HD -Abd x-ray- showed moderate stool in colon -HGB 9.1-trending up -continue to monitor H/H and transfuse as needed -no active signs of bleeding overnight or this am -etiology- most likely anorectal in nature -no plans for colonoscopy at this time unless overt bleeding develops -constipation-Pt drink half of golytely yesterday with poor results (no BM overnight or this am per pt and nursing) with abd now slightly distended -will order gastrografin enema today -continue supportive care -will follow Subjective Date of service: 01/04/18 Principal diagnosis: rectal bleeding Interval history: Patient states he drank 1/2 of golytely yesterday w/o having a BM. He denies abd pain or N/V but c/o abd distention. No active signs of bleeding overnight or this am. Objective - Constitutional Vitals: Temp Pulse Resp BP Pulse Ox 98.4 F 80 20 168/109 99 01/04/18 00:11 01/04/18 10:00 01/04/18 10:00 01/04/18 05:22 01/04/18 10:00 General appearance: no acute distress - Respiratory Respiratory: bilateral: CTA - Cardiovascular Rhythm: regular Heart Sounds: Present: S1 & S2 - Gastrointestinal General gastrointestinal: Present: soft, non-tender, distended (slightly distended), normal bowel sounds - Integumentary Integumentary: Present: warm, dry - Neurologic Neurological: alert and oriented x3 - Labs CBC & Chem 7: 01/04/18 06:40 01/04/18 06:40 Labs: Laboratory Results - last 24 hr 01/03/18 01/04/18 01/04/18 17:10 06:40 06:40 WBC 12.1 H RBC 3.03 L Hgb 9.1 L Hct 27.7 L MCV 91 MCH 30 MCHC 33 RDW 21.5 H Plt Count 118 L Add Manual Diff Complete Total Counted 100 Seg Neuts % (Manual) 49.0 Band Neutrophils % 8.0 Lymphocytes % (Manual) 35.0 Reactive Lymphs % (Man) 0 Monocytes % (Manual) 8.0 H Eosinophils % (Manual) 0 Basophils % (Manual) 0 Metamyelocytes % 0 Myelocytes % 0 Promyelocytes % 0 Blast Cells % 0 Nucleated RBC % Not Reportable Seg Neutrophils # Man 5.9 Band Neutrophils # 1.0 Lymphocytes # (Manual) 4.2 Abs React Lymphs (Man) 0.0 Monocytes # (Manual) 1.0 H Eosinophils # (Manual) 0.0 Basophils # (Manual) 0.0 Metamyelocytes # 0.0 Myelocytes # 0.0 Promyelocytes # 0.0 Blast Cells # 0.0 WBC Morphology Not Reportable Hypersegmented Neuts Not Reportable Hyposegmented Neuts Not Reportable Hypogranular Neuts Not Reportable Smudge Cells Not Reportable Toxic Granulation Not Reportable Toxic Vacuolation Not Reportable Dohle Bodies Not Reportable Pelger-Huet Anomaly Not Reportable Kam Rods Not Reportable Platelet Estimate Consistent w auto Clumped Platelets Not Reportable Plt Clumps, EDTA Not Reportable Large Platelets Not Reportable Giant Platelets Not Reportable Platelet Satelliting Not Reportable Plt Morphology Comment Not Reportable RBC Morphology Not Reportable Dimorphic RBCs Not Reportable Polychromasia Not Reportable Hypochromasia Not Reportable Poikilocytosis Not Reportable Anisocytosis 1+ Microcytosis Not Reportable Macrocytosis Not Reportable Spherocytes Not Reportable Pappenheimer Bodies Not Reportable Sickle Cells Not Reportable Target Cells Not Reportable Tear Drop Cells Not Reportable Ovalocytes Not Reportable Helmet Cells Not Reportable [place] Dunes Bodies Not Reportable [place] Rings Not Reportable [place] Cells Not Reportable Bite Cells Not Reportable Crenated Cell Not Reportable Elliptocytes Not Reportable Acanthocytes (Spur) Not Reportable Rouleaux Not Reportable Hemoglobin C Crystals Not Reportable Schistocytes Not Reportable Malaria parasites Not Reportable Nasir Bodies Not Reportable Hem Pathologist Commnt No Sodium 139 Potassium 3.4 L Chloride 96.1 L Carbon Dioxide 30 Anion Gap 16 BUN 25 H Creatinine 3.1 H Estimated GFR 29 BUN/Creatinine Ratio 8 Glucose 77 Calcium 7.6 L Total Bilirubin 0.50 AST 20 ALT 17 Alkaline Phosphatase 73 Total Creatine Kinase 42 L CK-MB (CK-2) 1.0 CK-MB (CK-2) Rel Index 2.3 Troponin T 0.060 H D Total Protein 5.9 L Albumin 2.6 L Albumin/Globulin Ratio 0.8 <CASPER FAUST R - Last Filed: 01/04/18 17:29> Assessment and Plan Pt has not yet had a BM, and is awaiting enema. However, abd is soft, so can discharge when otherwise ready. Objective - Constitutional Vitals: Temp Pulse Resp BP Pulse Ox 98.3 F 85 18 143/100 99 01/04/18 11:36 01/04/18 11:36 01/04/18 11:36 01/04/18 11:36 01/04/18 11:36 - Labs CBC & Chem 7: 01/04/18 13:18 01/04/18 06:40 Labs: Laboratory Results - last 24 hr 01/03/18 01/04/18 01/04/18 17:10 06:40 06:40 WBC 12.1 H RBC 3.03 L Hgb 9.1 L Hct 27.7 L MCV 91 MCH 30 MCHC 33 RDW 21.5 H Plt Count 118 L Add Manual Diff Complete Total Counted 100 Seg Neuts % (Manual) 49.0 Band Neutrophils % 8.0 Lymphocytes % (Manual) 35.0 Reactive Lymphs % (Man) 0 Monocytes % (Manual) 8.0 H Eosinophils % (Manual) 0 Basophils % (Manual) 0 Metamyelocytes % 0 Myelocytes % 0 Promyelocytes % 0 Blast Cells % 0 Nucleated RBC % Not Reportable Seg Neutrophils # Man 5.9 Band Neutrophils # 1.0 Lymphocytes # (Manual) 4.2 Abs React Lymphs (Man) 0.0 Monocytes # (Manual) 1.0 H Eosinophils # (Manual) 0.0 Basophils # (Manual) 0.0 Metamyelocytes # 0.0 Myelocytes # 0.0 Promyelocytes # 0.0 Blast Cells # 0.0 WBC Morphology Not Reportable Hypersegmented Neuts Not Reportable Hyposegmented Neuts Not Reportable Hypogranular Neuts Not Reportable Smudge Cells Not Reportable Toxic Granulation Not Reportable Toxic Vacuolation Not Reportable Dohle Bodies Not Reportable Pelger-Huet Anomaly Not Reportable Kam Rods Not Reportable Platelet Estimate Consistent w auto Clumped Platelets Not Reportable Plt Clumps, EDTA Not Reportable Large Platelets Not Reportable Giant Platelets Not Reportable Platelet Satelliting Not Reportable Plt Morphology Comment Not Reportable RBC Morphology Not Reportable Dimorphic RBCs Not Reportable Polychromasia Not Reportable Hypochromasia Not Reportable Poikilocytosis Not Reportable Anisocytosis 1+ Microcytosis Not Reportable Macrocytosis Not Reportable Spherocytes Not Reportable Pappenheimer Bodies Not Reportable Sickle Cells Not Reportable Target Cells Not Reportable Tear Drop Cells Not Reportable Ovalocytes Not Reportable Helmet Cells Not Reportable [place] Dunes Bodies Not Reportable [place] Rings Not Reportable [place] Cells Not Reportable Bite Cells Not Reportable Crenated Cell Not Reportable Elliptocytes Not Reportable Acanthocytes (Spur) Not Reportable Rouleaux Not Reportable Hemoglobin C Crystals Not Reportable Schistocytes Not Reportable Malaria parasites Not Reportable Nasir Bodies Not Reportable Hem Pathologist Commnt No Sodium 139 Potassium 3.4 L Chloride 96.1 L Carbon Dioxide 30 Anion Gap 16 BUN 25 H Creatinine 3.1 H Estimated GFR 29 BUN/Creatinine Ratio 8 Glucose 77 Calcium 7.6 L Total Bilirubin 0.50 AST 20 ALT 17 Alkaline Phosphatase 73 Total Creatine Kinase 42 L CK-MB (CK-2) 1.0 CK-MB (CK-2) Rel Index 2.3 Troponin T 0.060 H D Total Protein 5.9 L Albumin 2.6 L Albumin/Globulin Ratio 0.8 01/04/18 13:18 WBC 14.1 H RBC 2.81 L Hgb 8.5 L Hct 25.8 L MCV 92 MCH 30 MCHC 33 RDW 21.4 H Plt Count 117 L Add Manual Diff Complete Total Counted 100 Seg Neuts % (Manual) 60.0 Band Neutrophils % 5.0 Lymphocytes % (Manual) 28.0 Reactive Lymphs % (Man) 0 Monocytes % (Manual) 7.0 Eosinophils % (Manual) 0 Basophils % (Manual) 0 Metamyelocytes % 0 Myelocytes % 0 Promyelocytes % 0 Blast Cells % 0 Nucleated RBC % Not Reportable Seg Neutrophils # Man 8.5 H Band Neutrophils # 0.7 Lymphocytes # (Manual) 3.9 Abs React Lymphs (Man) 0.0 Monocytes # (Manual) 1.0 H Eosinophils # (Manual) 0.0 Basophils # (Manual) 0.0 Metamyelocytes # 0.0 Myelocytes # 0.0 Promyelocytes # 0.0 Blast Cells # 0.0 WBC Morphology Not Reportable Hypersegmented Neuts Not Reportable Hyposegmented Neuts Not Reportable Hypogranular Neuts Not Reportable Smudge Cells Not Reportable Toxic Granulation Not Reportable Toxic Vacuolation Not Reportable Dohle Bodies Not Reportable Pelger-Huet Anomaly Not Reportable Kam Rods Not Reportable Platelet Estimate Consistent w auto Clumped Platelets Not Reportable Plt Clumps, EDTA Not Reportable Large Platelets Not Reportable Giant Platelets Not Reportable Platelet Satelliting Not Reportable Plt Morphology Comment Not Reportable RBC Morphology Not Reportable Dimorphic RBCs Not Reportable Polychromasia Not Reportable Hypochromasia Not Reportable Poikilocytosis Not Reportable Anisocytosis 1+ Microcytosis Not Reportable Macrocytosis Not Reportable Spherocytes Not Reportable Pappenheimer Bodies Not Reportable Sickle Cells Not Reportable Target Cells Not Reportable Tear Drop Cells Not Reportable Ovalocytes Not Reportable Helmet Cells Not Reportable [place] Dunes Bodies Not Reportable [place] Rings Not Reportable [place] Cells Not Reportable Bite Cells Not Reportable Crenated Cell Not Reportable Elliptocytes Not Reportable Acanthocytes (Spur) Not Reportable Rouleaux Not Reportable Hemoglobin C Crystals Not Reportable Schistocytes Not Reportable Malaria parasites Not Reportable Nasir Bodies Not Reportable Hem Pathologist Commnt No Sodium Potassium Chloride Carbon Dioxide Anion Gap BUN Creatinine Estimated GFR BUN/Creatinine Ratio Glucose Calcium Total Bilirubin AST ALT Alkaline Phosphatase Total Creatine Kinase CK-MB (CK-2) CK-MB (CK-2) Rel Index Troponin T Total Protein Albumin Albumin/Globulin Ratio
[2018-01-04] MEDS ORDERED: Fluarix Quad 2017-2018(36 MOS+ IM ONE (12:01)
[2018-01-04] MEDS: MIRALAX 3350 PO SCH (12:06)
--- NOTE | 2018-01-04 12:56 | Progress Note ---
Assessment and Plan - Patient Problems (1) End stage renal disease on dialysis Current Visit: Yes Status: Acute Plan to address problem: Received hemodialysis yesterday for UF and clearance No acute indication for HD today Fluid restriction of 32 ounces per day Renal diet when allowed po intake Obtain daily weights Monitor I/O's Assess dialysis needs daily (2) HTN (hypertension) Current Visit: No Status: Acute Qualifiers: Hypertension type: essential hypertension Qualified Code(s): I10 - Essential (primary) hypertension Plan to address problem: Resume anti-hypertensive agents when allowed po intake (3) Lupus Current Visit: No Status: Chronic Qualifiers: Lupus erythematosus form: unspecified Qualified Code(s): L93.0 - Discoid lupus erythematosus Plan to address problem: As per Attending Outpatient Sightseeing Guide is Dr. Bear at [place] (4) Chest pain Current Visit: Yes Status: Acute Qualifiers: Chest pain type: other chest pain Qualified Code(s): R07.89 - Other chest pain; R07.8 - Other chest pain Plan to address problem: Scheduled for stress test as per Cardiology (5) Constipation Current Visit: Yes Status: Acute Plan to address problem: On Miralax and Dulcolax To receive gastrograffin enema per GI Subjective Date of service: 01/04/18 Principal diagnosis: rectal bleeding Interval history: Patient seen sitting up in bed. Getting blood drawn. Mother at bedside. Objective - Vital Signs Vital signs: Vital Signs - 12hr 01/04/18 01/04/18 01/04/18 05:22 07:00 10:00 Pulse Rate 128 H 70 Pulse Rate [ 80 Left Radial] Respiratory 20 20 Rate Blood Pressure 168/109 [Left] O2 Sat by Pulse 99 99 Oximetry - General Appearance General appearance: well-developed, appears stated age EENT: ATNC, PERRL, hearing intact, vision intact Neck: no JVD, supple Respiratory: Present: Clear to Ascultation Cardiology: regular, S1S2 Gastrointestinal: normoactive bowel sounds Integumentary: warm and dry Neurologic: alert and oriented x3 Musculoskeletal: other (trace edema) Psychiatric: cooperative - Lab 01/04/18 06:40 01/04/18 06:40 Most recent lab results Calcium 7.6 mg/dL (8.4-10.2) L 01/04/18 06:40 Magnesium 1.90 mg/dL (1.7-2.3) 01/03/18 01:48
[2018-01-04 13:57] LABS: Hematocrit 25.8 % (35.5-45.6); Hemoglobin 8.5 gm/dl (11.8-15.2); Mean Corpuscular HGB Conc 33 % (32-34); Mean Corpuscular Hemoglobin 30 pg (28-32); Mean Corpuscular Volume 92 fl (84-94); Platelet Count 117 K/mm3 (140-440); Red Blood Count 2.81 M/mm3 (3.65-5.03)
[2018-01-04 14:01] LABS: Red Cell Distribution Width 21.4 % (13.2-15.2)
[2018-01-04 14:48] LABS: Anisocytosis 1+; Band Neutrophils # (Manual) 0.7 K/mm3; Basophils % (Manual) 0 % (0.0-1.8); Eosinophils % (Manual) 0 % (0.0-4.3); Platelet Estimate Consistent w Auto; Total Cells Counted 100
--- NOTE | 2018-01-04 15:37 | Progress Note ---
Assessment and Plan Assessment and plan: Patient is a 32 yo man with a history of ESRD on hemodialysis, chronic anemia, chronic pain syndrome, SLE with lupus nephritis and hyperthyroidism who I discharged on 12/22/17 after pancytopenia due to cellcept/LLL pneumonia/ neutropenic fever. He returns for rectal bleeding, constipation, abdominal pains and sob. CTA chest: No evidence of pulmonary embolus or aortic dissection. Cardiomegaly with pulmonary vascular congestion and bilateral effusions. Bilateral small to moderate sized pleural effusions with atelectatic changes in both lower lobes. Small cortical cyst in the upper pole of the right kidney. 2v Abd: Nonobstructive bowel gas pattern. Moderate stool in the colon. Consolidation effusion at the left lung base as seen on recent chest x-ray. -Rectal bleeding: GI to evaluate -Constipation: good bowel regimen -Fluid overload, he missed his dialysis session on Tuesday because he came here: Hemodialysis need -SLE: wbc are much improved on Neuprogen stress test neg today per RN going for Barium tomorrow D/c once cleared by GI History Interval history: Patient was seen and examined. Follow-up on current diagnosis of constipation. Overnight uneventful. Patient denies any chest pain, shortness breath, nausea /vomiting or severe headaches. Imaging, nursing note, chart, labs and old chart reviewed. Discussed with patient. He unable to drink all of the [facility] Physical - Physical exam Narrative exam: GEN: WDWN, NAD, AWAKE, ALERT, ORIENTATED 3 HEENT: NCAT, EOMI, PERRL, OP Clear NECK: supple, no adenopathy, no thyromegaly, no JVD CVS/HEART: RRR, NORMAL S1S2, pulses present bilaterally CHEST/LUNGS: CTA B, Symmetrical chest expansion, good air entry bilaterally GI/Abdomen: soft, distended, nontender good bowel sounds, no guarding or rebound /Bladder: no suprapubic tenderness, no CVA or paraspinal tenderness EXT/Skin: no c/c/e, no obvious rash MSK: FROM x 4 Neuro: CN 2-12 grossly intact, no new focal deficits Psych: calm - Constitutional Vitals: Temp Pulse Resp BP Pulse Ox 98.3 F 85 18 143/100 99 01/04/18 11:36 01/04/18 11:36 01/04/18 11:36 01/04/18 11:36 01/04/18 11:36 General appearance: Present: no acute distress Results - Labs CBC & Chem 7: 01/04/18 13:18 01/04/18 06:40 Labs: Laboratory Last Values WBC 14.1 K/mm3 (4.5-11.0) H 01/04/18 13:18 RBC 2.81 M/mm3 (3.65-5.03) L 01/04/18 13:18 Hgb 8.5 gm/dl (11.8-15.2) L 01/04/18 13:18 Hct 25.8 % (35.5-45.6) L 01/04/18 13:18 MCV 92 fl (84-94) 01/04/18 13:18 MCH 30 pg (28-32) 01/04/18 13:18 MCHC 33 % (32-34) 01/04/18 13:18 RDW 21.4 % (13.2-15.2) H 01/04/18 13:18 Plt Count 117 K/mm3 (140-440) L 01/04/18 13:18 Add Manual Diff Complete 01/04/18 13:18 Total Counted 100 01/04/18 13:18 Seg Neuts % (Manual) 60.0 % (40.0-70.0) 01/04/18 13:18 Band Neutrophils % 5.0 % 01/04/18 13:18 Lymphocytes % (Manual) 28.0 % (13.4-35.0) 01/04/18 13:18 Reactive Lymphs % (Man) 0 % 01/04/18 13:18 Monocytes % (Manual) 7.0 % (0.0-7.3) 01/04/18 13:18 Eosinophils % (Manual) 0 % (0.0-4.3) 01/04/18 13:18 Basophils % (Manual) 0 % (0.0-1.8) 01/04/18 13:18 Metamyelocytes % 0 % 01/04/18 13:18 Myelocytes % 0 % 01/04/18 13:18 Promyelocytes % 0 % 01/04/18 13:18 Blast Cells % 0 % 01/04/18 13:18 Nucleated RBC % Not Reportable 01/04/18 13:18 Seg Neutrophils # Man 8.5 K/mm3 (1.8-7.7) H 01/04/18 13:18 Band Neutrophils # 0.7 K/mm3 01/04/18 13:18 Lymphocytes # (Manual) 3.9 K/mm3 (1.2-5.4) 01/04/18 13:18 Abs React Lymphs (Man) 0.0 K/mm3 01/04/18 13:18 Monocytes # (Manual) 1.0 K/mm3 (0.0-0.8) H 01/04/18 13:18 Eosinophils # (Manual) 0.0 K/mm3 (0.0-0.4) 01/04/18 13:18 Basophils # (Manual) 0.0 K/mm3 (0.0-0.1) 01/04/18 13:18 Metamyelocytes # 0.0 K/mm3 01/04/18 13:18 Myelocytes # 0.0 K/mm3 01/04/18 13:18 Promyelocytes # 0.0 K/mm3 01/04/18 13:18 Blast Cells # 0.0 K/mm3 01/04/18 13:18 WBC Morphology Not Reportable 01/04/18 13:18 Hypersegmented Neuts Not Reportable 01/04/18 13:18 Hyposegmented Neuts Not Reportable 01/04/18 13:18 Hypogranular Neuts Not Reportable 01/04/18 13:18 Smudge Cells Not Reportable 01/04/18 13:18 Toxic Granulation Not Reportable 01/04/18 13:18 Toxic Vacuolation Not Reportable 01/04/18 13:18 Dohle Bodies Not Reportable 01/04/18 13:18 Pelger-Huet Anomaly Not Reportable 01/04/18 13:18 Kam Rods Not Reportable 01/04/18 13:18 Platelet Estimate Consistent w auto 01/04/18 13:18 Clumped Platelets Not Reportable 01/04/18 13:18 Plt Clumps, EDTA Not Reportable 01/04/18 13:18 Large Platelets Not Reportable 01/04/18 13:18 Giant Platelets Not Reportable 01/04/18 13:18 Platelet Satelliting Not Reportable 01/04/18 13:18 Plt Morphology Comment Not Reportable 01/04/18 13:18 RBC Morphology Not Reportable 01/04/18 13:18 Dimorphic RBCs Not Reportable 01/04/18 13:18 Polychromasia Not Reportable 01/04/18 13:18 Hypochromasia Not Reportable 01/04/18 13:18 Poikilocytosis Not Reportable 01/04/18 13:18 Anisocytosis 1+ 01/04/18 13:18 Microcytosis Not Reportable 01/04/18 13:18 Macrocytosis Not Reportable 01/04/18 13:18 Spherocytes Not Reportable 01/04/18 13:18 Pappenheimer Bodies Not Reportable 01/04/18 13:18 Sickle Cells Not Reportable 01/04/18 13:18 Target Cells Not Reportable 01/04/18 13:18 Tear Drop Cells Not Reportable 01/04/18 13:18 Ovalocytes Not Reportable 01/04/18 13:18 Helmet Cells Not Reportable 01/04/18 13:18 Stanley-[place] Bodies Not Reportable 01/04/18 13:18 [place] Rings Not Reportable 01/04/18 13:18 Nunu Cells Not Reportable 01/04/18 13:18 Bite Cells Not Reportable 01/04/18 13:18 Crenated Cell Not Reportable 01/04/18 13:18 Elliptocytes Not Reportable 01/04/18 13:18 Acanthocytes (Spur) Not Reportable 01/04/18 13:18 Rouleaux Not Reportable 01/04/18 13:18 Hemoglobin C Crystals Not Reportable 01/04/18 13:18 Schistocytes Not Reportable 01/04/18 13:18 Malaria parasites Not Reportable 01/04/18 13:18 Nasir Bodies Not Reportable 01/04/18 13:18 Hem Pathologist Commnt No 01/04/18 13:18 Sodium 139 mmol/L (137-145) 01/04/18 06:40 Potassium 3.4 mmol/L (3.6-5.0) L 01/04/18 06:40 Chloride 96.1 mmol/L (98-107) L 01/04/18 06:40 Carbon Dioxide 30 mmol/L (22-30) 01/04/18 06:40 Anion Gap 16 mmol/L 01/04/18 06:40 BUN 25 mg/dL (9-20) H 01/04/18 06:40 Creatinine 3.1 mg/dL (0.8-1.5) H 01/04/18 06:40 Estimated GFR 29 ml/min 01/04/18 06:40 BUN/Creatinine Ratio 8 % 01/04/18 06:40 Glucose 77 mg/dL (75-100) 01/04/18 06:40 Calcium 7.6 mg/dL (8.4-10.2) L 01/04/18 06:40 Magnesium 1.90 mg/dL (1.7-2.3) 01/03/18 01:48 Total Bilirubin 0.50 mg/dL (0.1-1.2) 01/04/18 06:40 Direct Bilirubin < 0.2 mg/dL (0-0.2) 01/03/18 01:48 Indirect Bilirubin 0.1 mg/dL 01/03/18 01:48 AST 20 units/L (5-40) 01/04/18 06:40 ALT 17 units/L (7-56) 01/04/18 06:40 Alkaline Phosphatase 73 units/L (35-129) 01/04/18 06:40 Total Creatine Kinase 42 units/L (55-170) L 01/03/18 17:10 CK-MB (CK-2) 1.0 ng/mL (0.0-4.0) 01/03/18 17:10 CK-MB (CK-2) Rel Index 2.3 (0-4) 01/03/18 17:10 Troponin T 0.060 ng/mL (0.00-0.029) H D 01/03/18 17:10 Total Protein 5.9 g/dL (6.3-8.2) L 01/04/18 06:40 Albumin 2.6 g/dL (3.9-5) L 01/04/18 06:40 Albumin/Globulin Ratio 0.8 % 01/04/18 06:40 Triglycerides 146 mg/dL (2-149) 01/03/18 01:48 Cholesterol 168 mg/dL (50-199) 01/03/18 01:48 LDL Cholesterol Direct 98 mg/dL (50-130) 01/03/18 01:48 HDL Cholesterol 41 mg/dL (40-59) 01/03/18 01:48 Cholesterol/HDL Ratio 4.09 % 01/03/18 01:48 Urine Color Yellow (Yellow) 01/03/18 08:18 Urine Turbidity Clear (Clear) 01/03/18 08:18 Urine pH 5.0 (5.0-7.0) 01/03/18 08:18 Ur Specific [place] 1.031 (1.003-1.030) H 01/03/18 08:18 Urine Protein <30 mg dl mg/dL (Negative) 01/03/18 08:18 Urine Glucose (UA) Neg mg/dL (Negative) 01/03/18 08:18 Urine Ketones Neg mg/dL (Negative) 01/03/18 08:18 Urine Blood Neg (Negative) 01/03/18 08:18 Urine Nitrite Neg (Negative) 01/03/18 08:18 Urine Bilirubin Neg (Negative) 01/03/18 08:18 Urine Urobilinogen < 2.0 mg/dL (<2.0) 01/03/18 08:18 Ur Leukocyte Esterase Neg (Negative) 01/03/18 08:18 Urine WBC (Auto) 13.0 /HPF (0.0-6.0) H 01/03/18 08:18 Urine RBC (Auto) 4.0 /HPF (0.0-6.0) 01/03/18 08:18 Urine Bacteria (Auto) 1+ /HPF (Negative) 01/03/18 08:18 Urine Mucus Few /HPF 01/03/18 08:18
[2018-01-04] MEDS: LEVAQUIN 500MG/100ML 500 MG/100 ML BAG IV SCH (17:27)
[2018-01-05] MEDS: PERCOCET 5/325 PO PRN ×3 (04:05→14:41)
[2018-01-05 07:55] LABS: Albumin 2.5 g/dL (3.9-5); Calcium 7.3 mg/dL (8.4-10.2)
--- NOTE | 2018-01-05 08:55 | Progress Note ---
Assessment and Plan Assessment and Plan Rectal bleeding/Abdominal pain: GI following pt, barium enema done, result pending. Constipation/Abdominal pain: Abdominal X-ray showed non-obstructive bowel gas pattern, moderate stool in cool. Bilateral pleural effusion-Fluid overload due to missing dialysis: Hemodialysis scheduled. ESRD on hemodialysis: Hemodialysis scheduled. Anemia: of chronic disease. Will monitor H/H. SLE: Hold cellcept b/c of history of pancytopenia. Leukocytosis: Improving with Neuprogen. On Levaquin. DVT prophylaxis with Heparin. Subjective Date of service: 01/05/18 Principal diagnosis: rectal bleeding Objective - Exam Narrative Exam: Constitutional: Well-nourished well-developed. In no distress Head: Normocephalic atraumatic Eyes: Pupils are equal round and reactive to light Nose: No enlarged turbinates, no septal deviation. Mouth: Moist mucous membranes. Neck: Supple no thyromegaly. No bruit. No JVD Heart: Regular rate and rhythm, S1-S2 abnormal. No rubs murmurs or gallop Lungs: Clear to auscultation bilaterally no rales or rhonchi Abdomen: Soft, nontender. Bowel sound are present. Extremities: No edema no cyanosis and no clubbing. Neuro: Alert oriented Oriented x3. No focal sensory or motor deficit. Skin: No rashes no hyperemic spots Psychiatry: Euthymic. Calm. - Constitutional Vitals: Vital Signs - 12hr 01/04/18 01/04/18 01/04/18 22:36 22:46 23:36 Temperature 98.2 F Pulse Rate 87 73 Respiratory 20 18 Rate Blood Pressure 156/96 O2 Sat by Pulse 97 Oximetry 01/05/18 01/05/18 04:05 04:14 Temperature 97.8 F Pulse Rate 82 Respiratory 20 18 Rate Blood Pressure 174/112 O2 Sat by Pulse 99 Oximetry General appearance: Present: no acute distress, well-nourished - Labs CBC & Chem 7: 01/04/18 13:18 01/05/18 06:54 Labs: Abnormal lab results 01/04/18 01/04/18 01/05/18 Range/Units 06:40 13:18 06:54 WBC 14.1 H (4.5-11.0) K/mm3 RBC 2.81 L (3.65-5.03) M/mm3 Hgb 8.5 L (11.8-15.2) gm/dl Hct 25.8 L (35.5-45.6) % RDW 21.4 H (13.2-15.2) % Plt Count 117 L (140-440) K/mm3 Monocytes % (Manual) 8.0 H (0.0-7.3) % Seg Neutrophils # Man 8.5 H (1.8-7.7) K/mm3 Monocytes # (Manual) 1.0 H 1.0 H (0.0-0.8) K/mm3 BUN 39 H (9-20) mg/dL Creatinine 4.1 H (0.8-1.5) mg/dL Calcium 7.3 L (8.4-10.2) mg/dL Total Protein 5.7 L (6.3-8.2) g/dL Albumin 2.5 L (3.9-5) g/dL
--- NOTE | 2018-01-05 11:46 | Fluoroscopy Report ---
Water soluble contrast barium enema: Examination performed for therapeutic reasons. Water-soluble contrast was introduced via rectum with eventual filling to the hepatic flexure. A large volume of fecal matter is scattered throughout the colon. No stricture is noted. On evacuation image there is still residual contrast in the proximal colon however the remaining contrast was eliminated.
[2018-01-05] MEDS ORDERED: NACL 0.9 (PRIMING MACHINE ONLY DIALYSIS) MC ONE (13:39)
[2018-01-05] MEDS: MIRALAX 3350 PO SCH (14:42)
[2018-01-05] MEDS: HEPARIN IV PRN (15:42)
--- NOTE | 2018-01-05 16:38 | Progress Note ---
Assessment and Plan - Patient Problems (1) End stage renal disease on dialysis Current Visit: Yes Status: Acute Plan to address problem: Hemodialysis today for UF and clearance No acute indication for HD today Fluid restriction of 32 ounces per day Renal diet when allowed po intake Obtain daily weights Monitor I/O's Assess dialysis needs daily (2) HTN (hypertension) Current Visit: No Status: Acute Qualifiers: Hypertension type: essential hypertension Qualified Code(s): I10 - Essential (primary) hypertension Plan to address problem: Resume anti-hypertensive agents when allowed po intake (3) Lupus Current Visit: No Status: Chronic Qualifiers: Lupus erythematosus form: unspecified Qualified Code(s): L93.0 - Discoid lupus erythematosus Plan to address problem: As per Attending Outpatient Chief Credit Officer is Dr. Bear at [place] (4) Chest pain Current Visit: Yes Status: Acute Qualifiers: Chest pain type: other chest pain Qualified Code(s): R07.89 - Other chest pain; R07.8 - Other chest pain Plan to address problem: S/P stress test yesterday MPI - no ischemia, LVEF 65% Cardiology has signed off (5) Constipation Current Visit: Yes Status: Acute Plan to address problem: On Miralax and Dulcolax S/P gastrograffin enema yesterday No plans for colonoscopy at this time unless overt bleeding develops As per GI Subjective Date of service: 01/05/18 Principal diagnosis: rectal bleeding Interval history: Patient seen sitting up in bed. Patient reports having a bowel movement today. States he is going home today. Objective - Vital Signs Vital signs: Vital Signs - 12hr 01/05/18 01/05/18 01/05/18 07:00 08:32 10:30 Temperature 98.2 F Pulse Rate 88 96 H Respiratory 18 Rate Blood Pressure 146/96 O2 Sat by Pulse 98 Oximetry 01/05/18 01/05/18 01/05/18 10:45 11:00 11:15 Temperature Pulse Rate 90 81 84 Respiratory Rate Blood Pressure 143/105 142/105 146/105 O2 Sat by Pulse Oximetry 01/05/18 01/05/18 01/05/18 11:30 11:45 12:00 Temperature Pulse Rate 81 94 H 97 H Respiratory Rate Blood Pressure 145/112 141/105 135/108 O2 Sat by Pulse Oximetry 01/05/18 01/05/18 01/05/18 12:15 12:30 12:45 Temperature Pulse Rate 100 H 96 H 118 H Respiratory Rate Blood Pressure 134/104 130/95 119/96 O2 Sat by Pulse Oximetry 01/05/18 01/05/18 01/05/18 13:00 13:15 13:30 Temperature Pulse Rate 96 H 98 H 68 Respiratory Rate Blood Pressure 128/98 122/94 122/82 O2 Sat by Pulse Oximetry 01/05/18 01/05/18 13:40 14:34 Temperature 98.0 F Pulse Rate 103 H 90 Respiratory 18 Rate Blood Pressure 144/102 O2 Sat by Pulse Oximetry - General Appearance General appearance: well-developed, appears stated age EENT: ATNC, PERRL, hearing intact, vision intact Neck: no JVD, supple Respiratory: Present: Clear to Ascultation Cardiology: tachycardia, S1S2 Gastrointestinal: normoactive bowel sounds Integumentary: warm and dry Neurologic: alert and oriented x3 Musculoskeletal: joint swelling Psychiatric: cooperative - Lab 01/04/18 13:18 01/05/18 06:54 Most recent lab results Calcium 7.3 mg/dL (8.4-10.2) L 01/05/18 06:54 Magnesium 1.90 mg/dL (1.7-2.3) 01/03/18 01:48
[2018-01-05] MEDS: LEVAQUIN 500MG/100ML 500 MG/100 ML BAG IV SCH (17:05)
--- NOTE | 2018-01-05 19:51 | Discharge Summary ---
Providers - Providers Date of Admission: 01/03/18 05:21 Date of discharge: 01/05/18 Attending physician: LEN HAJI 01/03/18 05:21 Consult to Physician [CONS] Routine Consulting Provider: ANN JEREZ Reason For Exam: hd Place consult to:: barb Notified:: y Was contact made?: Yes 01/03/18 05:27 Consult to Physician [CONS] Routine Consulting Provider: GURMEET DYE Reason For Exam: rectal bleed Notified:: secretary of police pl call Primary care physician: SUZETTE FREITAS Hospitalization Reason for admission: rectal bleeding and constipation Condition: Stable Pertinent studies: CTA of the chest showed no evidence of femoral embolism. Stress test done showed no evidence of myocardial ischemia Procedures: None Hospital course: Patient is a 32 yo man with a history of ESRD on hemodialysis, chronic anemia, chronic pain syndrome, SLE with lupus nephritis and hyperthyroidism who I discharged on 12/22/17 after pancytopenia due to cellcept/LLL pneumonia/ neutropenic fever. He returns for rectal bleeding, constipation, abdominal pains and shortness of breath. Denies any dizziness. GI consult was obtained. Bleeding was said to be very minimal and heppened when patient was given himself enema because of his history of chronic constipation. There was no more bleeding since the initial episode. Patient remained hemodynamically stable. X-ray of the abdomen showed moderate stool in the colon suggestive of constipation. Enema was recommended by GI on consultation. This did not produce any results. Gastrografin enema was given. Patient had good bowel movement. CT angiogram showed no evidence of pulmonary embolism. Had chest pain for which stress test was done. No evidence of myocardial ischemia identified. Patient now has regular bowel movements. Normal rectal bleeding. He's never been discharged with her primary care physician as well as GI. Continue follow-up with these hand grinder for hemodialysis. Compliance was advised. Disposition: - TO HOME OR SELFCARE Time spent for discharge: 33min Core Measure Documentation - Palliative Care Palliative Care/ Comfort Measures: Not Applicable - Core Measures Any of the following diagnoses?: none Exam - Physical Exam Narrative exam: Constitutional: Well-nourished well-developed. In no distress Head: Normocephalic atraumatic Eyes: Pupils are equal round and reactive to light Nose: No enlarged turbinates, no septal deviation. Mouth: Moist mucous membranes. Neck: Supple no thyromegaly. No bruit. No JVD Heart: Regular rate and rhythm, S1-S2 abnormal. No rubs murmurs or gallop Lungs: Clear to auscultation bilaterally no rales or rhonchi Abdomen: Soft, nontender. Bowel sound are present. Extremities: No edema no cyanosis and no clubbing. Neuro: Alert oriented Oriented x3. No focal sensory or motor deficit. Skin: No rashes no hyperemic spots Psychiatry: Euthymic. Calm. - Constitutional Vitals: Temp Pulse Resp BP Pulse Ox 98.0 F 90 18 144/102 98 01/05/18 13:40 01/05/18 14:34 01/05/18 13:40 01/05/18 13:40 01/05/18 08:32 Plan Activity: advance as tolerated Weight Bearing Status: Weight Bear as Tolerated Diet: renal Follow up with: SUZETTE FREITAS MD [Primary Care Provider] - 3-5 Days Prescriptions: amLODIPine [Norvasc] 10 mg PO DAILY #30 tablet Bisacodyl [Dulcolax suppos] 10 mg WA QDAY PRN #30 supp.rect PRN Reason: Constipation unrelieved by MOM Calcitriol [Rocaltrol] 0.5 mcg PO QDAY #30 capsule cloNIDine [Catapres] 0.1 mg PO Q8H #90 tablet diphenhydrAMINE [Benadryl CAP] 25 mg PO QHS PRN #30 capsule PRN Reason: Itching Hydroxychloroquine [Plaquenil] 200 mg PO DAILY #30 tablet Labetalol [Normodyne TAB] 300 mg PO BID #60 tablet Methimazole [Tapazole] 5 mg PO QDAY #30 tablet oxyCODONE /ACETAMINOPHEN [Percocet 5/325 mg] 1 tab PO Q6H PRN #20 tablet PRN Reason: Pain, Moderate (4-6) predniSONE [Deltasone] 50 mg PO DAILY #30 tablet Sevelamer Carbonate [Renvela] 1,600 mg PO AC #90 tablet
[2018-01-05 20:16] VITALS: BP 148/103
== END 2018-01-05 21:00 | disposition home or self-care (01) | DRG 377 ==
LOC: ED 14:20 → 4A 01-03 05:21
PROVIDERS: ADMIT Internal Medicine; ATTEND Family Medicine
PROC: 5A1D70Z Performance of Urinary Filtration, Intermittent, Less than 6 Hours Per Day (ICD-10-PCS; 2018-01-03)
PROC: 3E0234Z Introduction of Serum, Toxoid and Vaccine into Muscle, Percutaneous Approach (ICD-10-PCS; principal; 2018-01-04)
PROC: 5A1D70Z Performance of Urinary Filtration, Intermittent, Less than 6 Hours Per Day (ICD-10-PCS; 2018-01-05)
DX: K62.5 Hemorrhage of anus and rectum (principal); N18.6 End stage renal disease; I12.0 Hypertensive chronic kidney disease with stage 5 chronic kidney disease or end stage renal disease; E87.70 Fluid overload, unspecified; K59.00 Constipation, unspecified; Z88.8 Allergy status to other drugs, medicaments and biological substances; E05.90 Thyrotoxicosis, unspecified without thyrotoxic crisis or storm; G89.4 Chronic pain syndrome; R07.89 Other chest pain; L93.0 Discoid lupus erythematosus; D63.8 Anemia in other chronic diseases classified elsewhere; D72.829 Elevated white blood cell count, unspecified; Z99.2 Dependence on renal dialysis; Z82.49 Family history of ischemic heart disease and other diseases of the circulatory system; Z23 Encounter for immunization
CPT/HCPCS: 36415; 71046; 71275; 74019; 74270; 78452; 80048; 80053; 80061; 80074; 81001; 82550; 82553; 83735; 84484; 85007; 85025; 90686; 93005; 93010; 93017; 96374; 96375; A9502; J1170; J1644; J1956; J2405; J2785; J7030; Q9963; Q9967